=== PATIENT | male | born 1945 | race Caucasian/White ===

== ENCOUNTER 2021-08-10 14:22 | Inpatient (IN) | payer OTHER ==
--- OUTSIDE RECORDS SUMMARY | 2021-08-10 14:28 | XMS REPORT | Continuity of Care Document ---
:1945 Author Organization [facility] t Address [address] Romero [address] [place] [id number] Care Team Providers Name Role Phone Timothy GLEZ Primary Care Physician Unavailable AYAKA Attending Clinician Unavailable LOVELOCK Attending Clinician Unavailable Oliva Lim MD Attending Clinician BHARGAVI Attending Clinician Unavailable MD JOELLE BROOKS Attending Clinician Unavailable TODD Attending Clinician Unavailable Ayaka RAMOS Attending Clinician ADRYAN LIM Attending Clinician Unavailable BRET Attending Clinician Unavailable MD BHARGAVI RAntonino Attending Clinician Unavailable Lab, Fam Pob I Attending Clinician Unavailable Aneshama CYBER ENGINEER Attending Clinician LEONIE Attending Clinician Unavailable Doctor Unassigned, Name Attending Clinician Unavailable IRAIDA Attending Clinician Unavailable GUSTAVO Attending Clinician Unavailable ASKED Attending Clinician Unavailable José Miguel RAMOS, P Attending Clinician AYAKA Admitting Clinician Unavailable LOVELOCK Admitting Clinician Unavailable MD JOELLE BROOKS Admitting Clinician Unavailable BRET Admitting Clinician Unavailable BHARGAVI Admitting Clinician Unavailable MD Gene BURK Admitting Clinician Unavailable Payers Payer Name Policy Type Policy Number Effective Date Expiration Date S [place] MEDICARE A B [id number] 2011 2017 00:00:00 00:00:00 [employer] MEDICARE [id number] 2017 2020 ADV 00:00:00 00:00:00 AETNA INDEMNITY [id number] 2012 2016 NON CONTR 00:00:00 00:00:00 [facility] [id number] 2020 2020 00:00:00 00:00:00 UNITED MEDICARE [id number] 2020 HMO 00:00:00 MEDICARE ADVANTAGE [id number] 2020 PPO - [facility] 00:00:00 ZZZTRS-CARE [id number] 2020 MEDICARE ADVANTAGE 00:00:00 MEDICARE PART A [id number] \T\ B - MEDICARE INDEMNITY/TRADITIO [id number] NAL CHOICE - AETNA Problems Condition Condition Condition Status Onset Resolution Last Treating Co mments Source Name Details Category Date Date Treatment Clinician Date ANAYELI ANAYELI Disease Active [facility] (obstructi (obstructi 10-21 Co llege ve sleep ve sleep 00:00: of apnea) apnea) 00 Medicin e Chronic Chronic Disease Active [facility] atrial atrial 3-27 College fibrillati fibrillati 00:00: of on on 00 Medicin (HCCode) (HCCode) e 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 8-19 [facility] (HCCode) (HCCode) 00:00: of 00 Medicin e TN TN Disease Active [facility] (trigemina (trigemina 8-19 Co llege l l 00:00: of neuralgia) neuralgia) 00 Me dicin e Allergies, Adverse Reactions, Alerts Allergy Allergy Status Severity Reaction(s) Onset Inactive Treating Comm ents Source Name Type Date Date Clinician NO KNOWN Allergy Active [facility] NO KNOWN Drug Active [facility] ALLERGIE Class ity of [facility] Social History Social Habit Start Date Stop Date Quantity Comments Source Exposure to Not sure [facility] Jo e of SARS-CoV-2 Medicine (event) History [facility] ge of Alcohol Std Medicine Drinks History [facility] ge of Alcohol Binge Medicine Alcohol intake 2021-04-16 2021-04-16 .29 /d [facility] Col lege of 00:00:00 00:00:00 Medicine History [facility] 2019-08-23 2019-08-23 2 [facility] ge of Alcohol Frequency 00:00:00 00:00:00 Medicin e Alcohol Comment 2016-04-08 2016-04-08 social [facility] Co llege of 00:00:00 00:00:00 Medicine Tobacco use and 2015-03-15 2015-03-15 Never used [facility] Co llege of exposure 00:00:00 00:00:00 Medicine History of 1977-03-15 Cigarette Smoker [facility] ollege of tobacco use 00:00:00 Medicine Sex [birth year] Universit [facility] of 00:00:00 00:00:00 [facility] Smoking Status Start Date Stop Date Source Unknown if ever smoked [facility] Former smoker 2015-03-15 00:00:00 2015-03-15 00:00:00 [facility] ollege of Medicine Medications Ordered Filled Start Stop Current Ordering Indication Dosage Frequency Signature Comments Components Source Medication Medication Date Date Medication? Clinician (SIG) Name Name Dabigatran Yes Take by [facility] Etexilate 9-20 mouth two [facility]le [facility] Mesylate 10:10: times of (PRADAXA) 55 daily. Medicin 150 MG CAPS e Mesalamine Yes Take by [facility] (LIALDA) 9-20 mouth. College 1.2 G TBEC 10:10: of 55 Medicin e Cholecalcif Yes 5000mg Take 5,000 [facility] kerline 9-20 mg by [facility] (VITAMIN D 10:10: mouth of OR) 55 daily. Medicin e Ocrelizumab Yes Inject [facility] (OCREVUS) 9-20 into the [facility] e 300 MG/10ML 10:10: vein once. of injection 55 Medicin e duloxetine Yes 20mg Take 20 mg [facility] (CYMBALTA) 9-20 by mouth Colle [facility] 20 MG 10:10: daily. of capsule 55 Medicin e levothyroxi Yes 175ug Take 175 [facility] ne 9-20 mcg by [facility] (SYNTHROID) 10:10: mouth of 175 MCG 55 daily. Medicin tablet e oxcarbazepi Yes 300mg Take 300 [facility] ne 9-20 mg by [facility] (TRILEPTAL) 10:10: mouth two o f 300 MG 55 times Medicin tablet daily. e Dabigatran Yes Take by [facility] Etexilate 9-20 mouth two [facility] Mesylate 10:10: times of (PRADAXA) 55 daily. Medicin 150 MG CAPS e Mesalamine Yes Take by [facility] (LIALDA) 9-20 mouth. College 1.2 G TBEC 10:10: of 55 Medicin e Cholecalcif Yes 5000mg Take 5,000 [facility] kerline 9-20 mg by [facility] (VITAMIN D 10:10: mouth of OR) 55 daily. Medicin e Ocrelizumab Yes Inject [facility] (OCREVUS) 9-20 into the [facility] e 300 MG/10ML 10:10: vein once. of injection 55 Medicin e duloxetine Yes 20mg Take 20 mg [facility] (CYMBALTA) 9-20 by mouth Colle [facility] 20 MG 10:10: daily. of capsule 55 Medicin e levothyroxi Yes 175ug Take 175 [facility] ne 9-20 mcg by [facility] (SYNTHROID) 10:10: mouth of 175 MCG 55 daily. Medicin tablet e oxcarbazepi Yes 300mg Take 300 [facility] ne 9-20 mg by [facility] (TRILEPTAL) 10:10: mouth two o f 300 MG 55 times Medicin tablet daily. e modafinil Yes 200mg Take 1 [facility] (PROVIGIL) 9-20 Tablet by [facility] 200 MG 00:00: mouth two of tablet 00 times Medicin daily. e modafinil Yes 200mg Take 1 [facility] (PROVIGIL) 9-20 Tablet by [facility] 200 MG 00:00: mouth two of tablet 00 times Medicin daily. e Amantadine Yes TAKE ONE [facility] HCl 100 MG 7-27 TABLET BY [facility] TABS 00:00: MOUTH of 00 TWICE A Medicin DAY e Amantadine 0 Yes TAKE ONE [facility] HCl 100 MG 7-27 TABLET BY [facility] TABS 00:00: MOUTH of 00 TWICE A Medicin DAY e modafinil 0 2020- No TAKE ONE [facility] (PROVIGIL) 6-24 09-20 TABLET BY [facility] 200 MG 00:00: 00:00 MOUTH of tablet 00 :00 TWICE A Medicin DAY e modafinil 2020- No TAKE ONE [facility] (PROVIGIL) 6-24 -20 TABLET BY [facility] 200 MG 00:00: 00:00 MOUTH of tablet 00 :00 TWICE A Medicin DAY e Dabigatran Yes Take by [facility] Etexilate 5-24 mouth two [facility] Mesylate 09:11: times of (PRADAXA) 20 daily. Medicin 150 MG CAPS e Mesalamine Yes Take by [facility] (LIALDA) 5-24 mouth. College 1.2 G TBEC 09:11: of 20 Medicin e Cholecalcif Yes 5000mg Take 5,000 [facility] kerline 5-24 mg by [facility] (VITAMIN D 09:11: mouth of OR) 20 daily. Medicin e Ocrelizumab Yes Inject [facility] (OCREVUS) 5-24 into the [facility] 300 MG/10ML 09:11: vein once. of injection 20 Medicin e duloxetine Yes 20mg Take 20 mg [facility] (CYMBALTA) 5-24 by mouth Colle [facility] 20 MG 09:11: daily. of capsule 20 Medicin e levothyroxi Yes 175ug Take 175 [facility] ne 5-24 mcg by [facility] (SYNTHROID) 09:11: mouth of 175 MCG 20 daily. Medicin tablet e oxcarbazepi Yes 300mg Take 300 [facility] ne 5-24 mg by [facility] (TRILEPTAL) 09:11: mouth two o f 300 MG 20 times Medicin tablet daily. e digoxin Yes 125ug Take 125 [facility] (LANOXIN) 4-13 mcg by [facility] 125 MCG 00:00: mouth at of tablet 00 bedtime. Medicin e digoxin Yes 125ug Take 125 [facility] (LANOXIN) 4-13 mcg by [facility] 125 MCG 00:00: mouth at of tablet 00 bedtime. Medicin e digoxin Yes 125ug Take 125 [facility] (LANOXIN) 4-13 mcg by [facility] 125 MCG 00:00: mouth at of tablet 00 bedtime. Medicin e digoxin Yes 125ug Take 125 [facility] (LANOXIN) 4-13 mcg by [facility] 125 MCG 00:00: mouth at of tablet 00 bedtime. Medicin e Dabigatran Yes Take by [facility] Etexilate 3-01 mouth two [facility] Mesylate 15:43: times of (PRADAXA) 03 daily. Medicin 150 MG CAPS e Mesalamine 0 Yes Take by [facility] (LIALDA) 3-01 mouth. [facility] 1.2 G TBEC 15:43: of 03 Medicin e Cholecalcif 2020-0 Yes 5000mg Take 5,000 [facility] kerline 3-01 mg by [facility] (VITAMIN D 15:43: mouth of OR) 03 daily. Medicin e Ocrelizumab Yes Inject [facility] (OCREVUS) 3-01 into the [facility] 300 MG/10ML 15:43: vein once. of injection 03 Medicin e duloxetine Yes 20mg Take 20 mg [facility] (CYMBALTA) 3-01 by mouth [facility]le [facility] 20 MG 15:43: daily. of capsule 03 Medicin e levothyroxi Yes 175ug Take 175 [facility] ne 3-01 mcg by [facility] (SYNTHROID) 15:43: mouth of 175 MCG 03 daily. Medicin tablet e oxcarbazepi Yes 300mg Take 300 [facility] ne 3-01 mg by [facility] (TRILEPTAL) 15:43: mouth two o f 300 MG 03 times Medicin tablet daily. e Dabigatran 2020-0 Yes Take by [facility] Etexilate 3- mouth two [facility] Mesylate 15:43: times of (PRADAXA) 03 daily. Medicin 150 MG CAPS e Mesalamine 2020-0 Yes Take by [facility] (LIALDA) 3-01 mouth. [facility] 1.2 G TBEC 15:43: of 03 Medicin e Cholecalcif 2020-0 Yes 5000mg Take 5,000 [facility] kerline 3-01 mg by [facility] (VITAMIN D 15:43: mouth of OR) 03 daily. Medicin e Ocrelizumab Yes Inject [facility] (OCREVUS) 3-01 into the [facility] 300 MG/10ML 15:43: vein once. of injection 03 Medicin e duloxetine Yes 20mg Take 20 mg [facility] (CYMBALTA) 3- by mouth [facility] 20 MG 15:43: daily. of capsule 03 Medicin e levothyroxi Yes 175ug Take 175 [facility] ne 3-01 mcg by [facility] (SYNTHROID) 15:43: mouth of 175 MCG 03 daily. Medicin tablet e oxcarbazepi Yes 300mg Take 300 [facility] ne 3-01 mg by [facility] (TRILEPTAL) 15:43: mouth two o f 300 MG 03 times Medicin tablet daily. e Dabigatran Yes Take by [facility] Etexilate - mouth two [facility] Mesylate 15:43: times of (PRADAXA) 03 daily. Medicin 150 MG CAPS e Mesalamine Yes Take by [facility] (LIALDA) 3- mouth. [facility] 1.2 G TBEC 15:43: of 03 Medicin e Cholecalcif Yes 5000mg Take 5,000 [facility] kerline 3- mg by [facility] (VITAMIN D 15:43: mouth of OR) 03 daily. Medicin e Ocrelizumab Yes [facility]ject [facility] (OCREVUS) 09-25 into the [facility] 300 MG/10ML 15:43: vein once. of injection Medicin e duloxetine Yes 20mg Take 20 mg [facility] (CYMBALTA) - by mouth [facility] 20 MG 15:43: daily. of capsule 03 Medicin e levothyroxi Yes 175ug Take 175 [facility] ne 3-01 mcg by [facility] (SYNTHROID) 15:43: mouth of 175 MCG 03 daily. Medicin tablet e oxcarbazepi Yes 300mg Take 300 [facility] ne 3-01 mg by [facility] (TRILEPTAL) 15:43: mouth two o f 300 MG 03 times Medicin tablet daily. e olmesartan 2020- No 5mg Take 5 mg [facility] (BENICAR) 5 3- 03-01 by mouth [facility] MG tablet 15:41: 00:00 daily. of 20 :00 Medicin e amlodipine 2020-2020- No 2.5mg Take 2.5 [facility] (NORVASC) 3-01 03-01 mg by College 2.5 MG 15:41: 00:00 mouth of tablet 08 :00 daily. Medicin e rosuvastati 2020-0 Yes 10mg Take 10 mg [facility] n (CRESTOR) 2-26 by mouth [facility] 10 MG 00:00: daily. of tablet 00 Medicin e rosuvastati 2020-0 Yes 10mg Take 10 mg [facility] (CRESTOR) 2-26 by mouth [facility] 10 MG 00:00: daily. of tablet 00 Medicin e rosuvastati 2020-0 Yes 10mg Take 10 mg [facility] n (CRESTOR) 2-26 by mouth [facility] 10 MG 00:00: daily. of tablet 00 Medicin e rosuvastati 2020-0 Yes 10mg Take 10 mg [facility] (CRESTOR) 2-26 by mouth [facility] 10 MG 00:00: daily. of tablet 00 Medicin e rosuvastati 2020-0 Yes 10mg Take 10 mg [facility] (CRESTOR) 2-26 by mouth [facility] 10 MG 00:00: daily. of tablet 00 Medicin e rosuvastati 2020-0 Yes 10mg Take 10 mg [facility] n (CRESTOR) 2-26 by mouth [facility] 10 MG 00:00: daily. of tablet 00 Medicin e Alfuzosin 2020-0 Yes [id number] 10mg Take 10 mg [facility] HCl 10 MG 2-16 9100 by mouth Colleg e TB24 00:00: at of 00 bedtime. Medicin e Alfuzosin 2020-0 Yes [id number] 10mg Take 10 mg [facility] HCl 10 MG 2-16 9100 by mouth Colleg e TB24 00:00: at of 00 bedtime. Medicin e Alfuzosin 2020-0 Yes [id number] 10mg Take 10 mg [facility] HCl 10 MG 2-16 9100 by mouth Colleg e TB24 00:00: at of 00 bedtime. Medicin e Alfuzosin 2020-0 Yes [id number] 10mg Take 10 mg [facility] HCl 10 MG 2-16 9100 by mouth Colleg e TB24 00:00: at of 00 bedtime. Medicin e Alfuzosin 2020-0 Yes [id number] 10mg Take 10 mg [facility] HCl 10 MG 2-16 9100 by mouth Colleg e TB24 00:00: at of 00 bedtime. Medicin e Alfuzosin 2020-0 Yes [id number] 10mg Take 10 mg [facility] HCl 10 MG 2-16 9100 by mouth Colleg e TB24 00:00: at of 00 bedtime. Medicin e latanoprost 2020-0 Yes [facility] (XALATAN) 2-08 [facility] 0.005 % 00:00: of ophthalmic 00 Medicin solution e latanoprost 2020-0 Yes [facility] (XALATAN) 2-08 [facility] 0.005 % 00:00: of ophthalmic 00 Medicin solution e latanoprost 2020-0 Yes [facility] (XALATAN) 2-08 [facility] 0.005 % 00:00: of ophthalmic 00 Medicin solution e latanoprost 2020-0 Yes [facility] (XALATAN) 2-08 [facility] 0.005 % 00:00: of ophthalmic 00 Medicin solution e latanoprost 2020-0 Yes [facility] (XALATAN) 2-08 [facility] 0.005 % 00:00: of ophthalmic 00 Medicin solution e gabapentin 2020-0 Yes TAKE THREE [facility] (NEURONTIN) 2-04 CAPSULES [facility] 300 MG 00:00: BY MOUTH of capsule 00 THREE Medicin TIMES A e DAY gabapentin 2020-0 Yes TAKE THREE [facility] (NEURONTIN) 2-04 CAPSULES [facility] 300 MG 00:00: BY MOUTH of capsule 00 THREE Medicin TIMES A e DAY gabapentin 2020-0 Yes TAKE THREE [facility] (NEURONTIN) 2-04 CAPSULES [facility] 300 MG 00:00: BY MOUTH of capsule 00 THREE Medicin TIMES A e DAY gabapentin 1-0 Yes TAKE THREE [facility] (NEURONTIN) 2-04 CAPSULES [facility] 300 MG 00:00: BY MOUTH of capsule 00 THREE Medicin TIMES A e DAY gabapentin 2021-0 Yes TAKE THREE [facility] (NEURONTIN) 2-04 CAPSULES [facility] 300 MG 00:00: BY MOUTH of capsule 00 THREE Medicin TIMES A e DAY gabapentin 1-0 Yes TAKE THREE [facility] (NEURONTIN) 2-04 CAPSULES [facility] 300 MG 00:00: BY MOUTH of capsule 00 THREE Medicin TIMES A e DAY lorazepam 2021-0 Yes .5mg Take 1 [facility] (ATIVAN) 2-03 Tablet by [facility] e 0.5 MG 00:00: mouth of tablet 00 every 6 Medicin hours as e needed for Anxiety. lorazepam Yes .5mg Take 1 [facility] (ATIVAN) 2-03 Tablet by Colleg e 0.5 MG 00:00: mouth of tablet 00 every 6 Medicin hours as e needed for Anxiety. lorazepam 0 202- No .5mg Take 1 [facility] (ATIVAN) 2-03 04-15 Tablet by [facility] 0.5 MG 00:00: 00:00 mouth of tablet 00 :00 every 6 Medicin hours as e needed for Anxiety. clopidogrel 2019-07 Yes 75mg Take 75 mg [facility] (PLAVIX) 75 2-18 by mouth [facility] MG Tablet 00:00: daily. of 00 Medicin e clopidogrel 2019-07 Yes 75mg Take 75 mg [facility] (PLAVIX) 75 2-18 by mouth [facility] MG Tablet 00:00: daily. of Medicin e clopidogrel 2019-07 Yes 75mg Take 75 mg [facility] (PLAVIX) 75 2-18 by mouth [facility] MG Tablet 00:00: daily. of Medicin e clopidogrel 2019-07- No 75mg Take 75 mg [facility] (PLAVIX) 75 2-18 05-24 by mouth [facility] MG Tablet 00:00: 00:00 daily. of 00 :00 Medicin e modafinil 2019-07 Yes TAKE ONE [facility] (PROVIGIL) 2-07 TABLET BY [facility] 200 MG 00:00: MOUTH of tablet 00 TWICE A Medicin DAY e modafinil 2019-07 Yes TAKE ONE [facility] (PROVIGIL) 2-07 TABLET BY [facility] 200 MG 00:00: MOUTH of tablet 00 TWICE A Medicin DAY e modafinil 2019-07 Yes TAKE ONE [facility] (PROVIGIL) 2-07 TABLET BY [facility] 200 MG 00:00: MOUTH of tablet 00 TWICE A Medicin DAY e modafinil 2019-07 Yes TAKE ONE [facility] (PROVIGIL) 2-07 TABLET BY [facility] 200 MG 00:00: MOUTH of tablet 00 TWICE A Medicin DAY e Amantadine 2019-07 Yes TAKE ONE [facility] HCl 100 MG 1-27 TABLET BY [facility] TABS 00:00: MOUTH of 00 TWICE A Medicin DAY e Amantadine 2019- Yes TAKE ONE [facility] HCl 100 MG 1-27 TABLET BY [facility] TABS 00:00: MOUTH of 00 TWICE A Medicin DAY e Amantadine 2019- Yes TAKE ONE [facility] HCl 100 MG 1-27 TABLET BY [facility] TABS 00:00: MOUTH of 00 TWICE A Medicin DAY e Amantadine 2019-07 Yes TAKE ONE [facility] HCl 100 MG 1-27 TABLET BY [facility] TABS 00:00: MOUTH of 00 TWICE A Medicin DAY e amiodarone 2020-0 Yes [facility] (PACERONE) 8 [facility] 200 MG 00:00: of tablet 00 Medicin e amiodarone 2020-0 Yes [facility] (PACERONE) 03-03 [facility] 200 MG 00:00: of tablet 00 Medicin e amiodarone 2019-0 2020- No [facility] (PACERONE) 03-03 04-15 [facility] 200 MG 00:00: 00:00 of tablet 00 :00 Medicin e Dabigatran 2020-0 Yes Take by [facility] Etexilate 3-17 mouth two [facility] Mesylate 16:18: times of (PRADAXA) 48 daily. Medicin 150 MG CAPS e Mesalamine 2019-0 Yes Take by [facility] (LIALDA) 3-17 mouth. [facility] 1.2 G TBEC 16:18: of 48 Medicin e Cholecalcif 2020-0 Yes 5000mg Take 5,000 [facility] kerline 3-17 mg by [facility] (VITAMIN D 16:18: mouth of OR) 48 daily. Medicin e amiodarone 2020-0 Yes Inject [facility] (CORDARONE) 3-17 into the [facility] 50 mg/mL 16:18: vein. of injection 48 Medicin e Ocrelizumab 2020-0 Yes Inject [facility] (OCREVUS) 3-17 into the [facility] 300 MG/10ML 16:18: vein once. of injection 48 Medicin e olmesartan 2020-0 Yes 5mg Take 5 mg [facility] (BENICAR) 5 3-17 by mouth [facility] MG tablet 16:18: daily. of 48 Medicin e duloxetine 2020-0 Yes 20mg Take 20 mg [facility] (CYMBALTA) 3-17 by mouth [facility] 20 MG 16:18: daily. of capsule 48 Medicin e amlodipine 2020-0 Yes 2.5mg Take 2.5 [facility] (NORVASC) 3-17 mg by [facility] 2.5 MG 16:18: mouth of tablet 48 daily. Medicin e levothyroxi 2020-0 Yes 175ug Take 175 [facility] ne 3-17 mcg by [facility] (SYNTHROID) 16:18: mouth of 175 MCG 48 daily. Medicin tablet e oxcarbazepi 2020-0 Yes 300mg Take 300 [facility] ne 3-17 mg by [facility] (TRILEPTAL) 16:18: mouth two o f 300 MG 48 times Medicin tablet daily. e oxcarbazepi 2020-0 Yes 150mg Take 150 [facility] ne 3-17 mg by [facility] (TRILEPTAL) 16:18: mouth two o f 150 MG 48 times Medicin tablet daily. e Tamsulosin 2020-0 Yes [id number] .4mg Take 0.4 [facility] HCl 0.4 MG 3-17 9100 mg by [facility] CAPS 00:00: mouth at of 00 bedtime. Medicin e ciprofloxac 2020-0 Yes [id number] 500mg Take 1 Tab [facility] in (CIPRO) 3-17 by mouth [facility] 500 MG 00:00: two times of tablet 00 daily. Medicin e Amantadine 2020-0 Yes TAKE ONE [facility] HCl 100 MG 3-16 TABLET BY [facility] TABS 00:00: MOUTH of 00 TWICE A Medicin DAY e Dabigatran 2020-0 Yes Take by [facility] [place] [facility] Etexilate 2-25 mouth two [facility] Mesylate 19:48: times of (PRADAXA) 18 daily. Medicin 150 MG CAPS e Mesalamine 2020-0 Yes Take by [facility] [place] [facility] (LIALDA) 2-25 mouth. [facility] 1.2 G TBEC 19:48: of 18 Medicin e Cholecalcif 2020-0 Yes 5000mg Take 5,000 [facility] kerline 2-25 mg by [facility] (VITAMIN D 19:48: mouth of OR) 18 daily. Medicin e amiodarone 2020-0 Yes Inject [facility] (CORDARONE) 2-25 into the [facility] 50 mg/mL 19:48: vein. of injection 18 Medicin e Ocrelizumab 2020-0 Yes Inject [facility] (OCREVUS) 2-25 into the [facility] 300 MG/10ML 19:48: vein once. of injection 18 Medicin e olmesartan 2020-0 Yes 5mg Take 5 mg [facility] (BENICAR) 5 2-25 by mouth [facility] MG tablet 19:48: daily. of 18 Medicin e duloxetine 2020-0 Yes 20mg Take 20 mg [facility] (CYMBALTA) 2-25 by mouth [facility] 20 MG 19:48: daily. of capsule 18 Medicin e amlodipine 2020-0 Yes 2.5mg Take 2.5 [facility] (NORVASC) 2-25 mg by [facility] 2.5 MG 19:48: mouth of tablet 18 daily. Medicin e levothyroxi 2020-0 Yes 175ug Take 175 [facility] ne 2-25 mcg by [facility] (SYNTHROID) 19:48: mouth of 175 MCG 18 daily. Medicin tablet e oxcarbazepi 2020-0 Yes 300mg Take 300 [facility] ne 2-25 mg by [facility] (TRILEPTAL) 19:48: mouth two o f 300 MG 18 times Medicin tablet daily. e oxcarbazepi 2020-0 Yes 150mg Take 150 [facility] ne 2-25 mg by [facility] (TRILEPTAL) 19:48: mouth two o f 150 MG 18 times Medicin tablet daily. e furosemide 2019-0 2020- No 40mg Take 40 mg [facility] (LASIX) 40 2-25 02-25 by mouth [facility] MG tablet 19:48: 00:00 daily. of 18 :00 Medicin e levothyroxi 2020-0 2020- No 150ug Take 150 [facility] ne 2-25 02-25 mcg by [facility] (SYNTHROID) 19:48: 00:00 mouth of 150 MCG 18 :00 daily. Medicin tablet e LATANOPROST 2019-0 2020- No Apply to [facility] OP 2-25 02-25 eye. College 19:48: 00:00 of 18 :00 Medicin e potassium 2020-0 2020- No 10meq Take 10 [facility] chloride 2-25 02-25 mEq by [facility] (KDUR) 10 19:48: 00:00 mouth of MEQ tablet 18 :00 daily. Medicin e modafinil 2020-0 Yes 200mg Take 1 Tab [facility] (PROVIGIL) 2-25 by mouth [facility] 200 MG 00:00: two times of tablet 00 daily. Medicin e modafinil 2020-0 Yes 200mg Take 1 Tab [facility] (PROVIGIL) 2-25 by mouth [facility] 200 MG 00:00: two times of tablet 00 daily. Medicin e Cholecalcif 2020-0 Yes 5000mg Take 5,000 [facility] kerline 1-27 mg by [facility] (VITAMIN D 18:14: mouth of OR) 28 daily. Medicin e amiodarone 2020-0 Yes Inject [facility] (CORDARONE) 1- into the [facility] 50 mg/mL 18:14: vein. of injection 28 Medicin e Ocrelizumab 2020-0 Yes Inject [facility] (OCREVUS) - into the [facility] 300 MG/10ML 18:14: vein once. of injection 28 Medicin e furosemide 2020-0 Yes 40mg Take 40 mg [facility] (LASIX) 40 - by mouth [facility]le [facility] MG tablet 18:14: daily. of 28 Medicin e levothyroxi 2020-0 Yes 150ug Take 150 [facility] ne 1-27 mcg by [facility] (SYNTHROID) 18:14: mouth of 150 MCG 28 daily. Medicin tablet e Dabigatran 2019-0 Yes Take by [facility] Etexilate 08-23 mouth two [facility] Mesylate 18:14: times of (PRADAXA) 28 daily. Medicin 150 MG CAPS e LATANOPROST 2020-0 Yes Apply to [facility] OP 08-23 eye. College 18:14: of Medicin e potassium 2020-0 Yes 10meq Take 10 [facility] chloride -27 mEq by [facility] (KDUR) 10 18:14: mouth of MEQ tablet 28 daily. Medicin e Mesalamine 2019-0 Yes Take by [facility] (LIALDA) 08-23 mouth. College 1.2 G TBEC 18:14: of Medicin e methylPREDN 2018-07 Yes Take by [facility] ISolone -15 mouth as College (MEDROL 00:00: directed. of DOSEPACK) 4 00 Medicin MG tablet e methylPREDN 2018-07 2020- No Take by [facility] ISolone -15 09-21 mouth as College (MEDROL 00:00: 00:00 directed. alexa MENDEZ) 4 00 :00 Medicin MG tablet e modafinil 2018-07 Yes TAKE ONE [facility] (PROVIGIL) 1-08 TABLET BY [facility] 200 MG 00:00: MOUTH of tablet 00 TWICE A Medicin DAY e modafinil 2018-07 2020- No TAKE ONE [facility] (PROVIGIL) 1-08 02-25 TABLET BY Col [facility] 200 MG 00:00: 00:00 MOUTH of tablet 00 :00 TWICE A Medicin DAY e gabapentin Yes TAKE THREE [facility] (NEURONTIN) 6-17 CAPSULES [facility] 300 MG 00:00: BY MOUTH of capsule 00 THREE Medicin TIMES A e DAY gabapentin Yes TAKE THREE [facility] (NEURONTIN) 6-17 CAPSULES [facility] 300 MG 00:00: BY MOUTH of capsule 00 THREE Medicin TIMES A e DAY gabapentin Yes TAKE THREE [facility] (NEURONTIN) 6-17 CAPSULES [facility] 300 MG 00:00: BY MOUTH of capsule 00 THREE Medicin TIMES A e DAY gabapentin Yes TAKE THREE [facility] (NEURONTIN) 6-17 CAPSULES [facility] 300 MG 00:00: BY MOUTH of capsule 00 THREE Medicin TIMES A e DAY modafinil Yes TAKE ONE [facility] (PROVIGIL) 3-27 TABLET BY [facility] 200 MG 00:00: MOUTH of tablet 00 TWICE A Medicin DAY e Amantadine Yes TAKE ONE [facility] HCl 100 MG 3-25 TABLET BY [facility] TABS 00:00: MOUTH of 00 TWICE A Medicin DAY e Amantadine Yes TAKE ONE [facility] HCl 100 MG 3-25 TABLET BY [facility] TABS 00:00: MOUTH of 00 TWICE A Medicin DAY e Amantadine Yes TAKE ONE [facility] HCl 100 MG 3-25 TABLET BY [facility] TABS 00:00: MOUTH of 00 TWICE A Medicin DAY e furosemide Yes 40mg Take 40 mg [facility] (LASIX) 40 1-14 by mouth [facility] MG tablet 20:27: daily. of 10 Medicin e levothyroxi Yes 150ug Take 150 [facility] [place] ne 1-14 mcg by [place] (SYNTHROID) 20:27: mouth of 150 MCG 10 daily. Medicin tablet e Dabigatran Yes Take by [place] [facility] Etexilate 1-14 mouth two [facility] [place] Mesylate 20:27: times of (PRADAXA) 10 daily. Medicin 150 MG CAPS e LATANOPROST Yes Apply to Aravind spangler OP 1-14 eye. [place] 20:27: of 10 Medicin e potassium Yes 10meq Take 10 [facility] chloride 1-14 mEq by [place] (KDUR) 10 20:27: mouth of MEQ tablet 10 daily. Medicin e Mesalamine Yes Take by [place] [facility] (LIALDA) 1-14 mouth. College 1.2 G TBEC 20:27: of 10 Medicin e Cholecalcif Yes 5000mg Take 5,000 [facility] kerline 1-14 mg by [place] (VITAMIN D 20:27: mouth of OR) 10 daily. Medicin e amiodarone Yes Inject [facility] (CORDARONE) 1-14 into the [facility]anne e[facility] 50 mg/mL 20:27: vein. of injection 10 Medicin e Ocrelizumab Yes Inject [facility] (OCREVUS) 1-14 into the Colleg e 300 MG/10ML 20:27: vein once. of injection 10 Medicin e oxcarbazepi Yes [facility] 04-02 [place] (TRILEPTAL) 00:00: of 600 MG 00 Medicin tablet e oxcarbazepi Yes [facility] 04-02 [place] (TRILEPTAL) 00:00: of 600 MG 00 Medicin tablet e oxcarbazepi 2020- No [facility] r sd 04-02 [place] (TRILEPTAL) 00:00: 00:00 of 600 MG 00 :00 Medicin tablet e esomeprazol Yes [facility] e (NEXIUM) 03-13 [place] 40 MG 00:00: of capsule 00 Medicin e esomeprazol Yes [facility] e (NEXIUM) 03-13 [place] 40 MG 00:00: of capsule 00 Medicin e esomeprazol Yes [facility] e (NEXIUM) 03-13 [place] 40 MG 00:00: of capsule 00 Medicin e esomeprazol Yes [facility] e (NEXIUM) 8-17 College 40 MG 00:00: of capsule 00 Medicin e esomeprazol 2015- Yes [facility] (NEXIUM) 8-17 [facility] 40 MG 00:00: of capsule 00 Medicin e esomeprazol Yes [facility] (NEXIUM) 8-17 [facility] 40 MG 00:00: of capsule 00 Medicin e esomeprazol Yes [facility] (NEXIUM) 8-17 College 40 MG 00:00: of capsule Medicin e esomeprazol Yes [facility] e (NEXIUM) 8-17 College 40 MG 00:00: of capsule 00 Medicin e esomeprazol 2015- Yes [facility] (NEXIUM) 8-17 College 40 MG 00:00: of capsule Medicin e esomeprazol Yes [facility] (NEXIUM) 8-17 College 40 MG 00:00: of capsule 00 Medicin e Vital Signs Vital Name Observation Time Observation Value Comments Source HEIGHT 2020-12-20 06:00:00 193 cm WEIGHT 2020-12-20 06:00:00 75.7 kg HEIGHT 2020-12-19 13:14:00 193 cm WEIGHT 2020-12-19 13:14:00 74.844 kg Systolic blood 2021-04-16 15:06:00 96 mm[Hg] [facility] pressure Medicine Diastolic blood 2021-04-16 15:06:00 63 mm[Hg] [facility] pressure Medicine Heart rate 2021-04-16 15:06:00 69 /min [facility] Body height 2021-04-16 15:06:00 193 cm [facility] Body weight 2021-04-16 15:06:00 74.39 kg [facility] BMI 2021-04-16 15:06:00 19.96 kg/m2 [facility] Systolic blood 2020-12-18 14:09:00 169 mm[Hg] [facility] pressure Medicine Diastolic blood 2020-12-18 14:09:00 108 mm[Hg] [facility] pressure Medicine Heart rate 2020-12-18 14:09:00 67 /min [facility] [facility] [employer] Body temperature 2020-12-18 14:09:00 36.28 Vaishnavi [facility] Respiratory rate 2020-12-18 14:09:00 16 /min [facility] Body height 2020-12-18 14:09:00 193 cm [facility] ollege of [facility] Body weight 2020-12-18 14:09:00 75.841 kg [facility] ollege of [facility] BMI 2020-12-18 14:09:00 20.35 [facility] Oxygen saturation in 2020-12-18 14:09:00 100 /min [facility] Arterial blood by [facility] Pulse oximetry Systolic blood 2020-11-09 15:14:00 99 mm[Hg] [facility] pressure Medicine Diastolic blood 2020-11-09 15:14:00 71 mm[Hg] [facility] pressure Medicine Heart rate 2020-11-09 15:14:00 128 /min [facility] ollege of [facility] Body height 2020-11-09 15:14:00 193 cm [facility] Body weight 2020-11-09 15:14:00 76.204 kg [facility] ollege of [facility] BMI 2020-11-09 15:14:00 20.45 [facility]m2 [facility] Systolic blood 2020-09-27 16:10:00 121 mm[Hg] [facility] pressure Medicine Diastolic blood 2020-09-27 16:10:00 80 mm[Hg] [facility] pressure Medicine Heart rate 2020-09-27 16:10:00 70 /min [facility] Body height 2020-09-27 16:10:00 193 cm [facility] ollege of [facility] Body weight 2020-09-27 16:10:00 83.915 kg [facility] ollege of [facility] BMI 2020-09-27 16:10:00 22.52 kg/m2 [facility] of Medicine Systolic blood 2020-09-25 15:40:00 121 mm[Hg] [facility] pressure Medicine Diastolic blood 2020-09-25 15:40:00 85 mm[Hg] [facility] pressure Medicine Heart rate 2020-09-25 15:40:00 64 /min [facility] Body temperature 2020-09-25 15:40:00 36.22 Vaishnavi [facility] Respiratory rate 2020-09-25 15:40:00 16 /min [facility] Body height 2020-09-25 15:40:00 193 cm [facility] ol[facility] of Medicine Body weight 2020-09-25 15:40:00 83.008 kg [facility] ol[facility] of Medicine BMI 2020-09-25 15:40:00 22.28 kg/m2 [facility] Oxygen saturation in 2020-09-25 15:40:00 100 /min [facility] blood by [facility] Pulse oximetry HEIGHT 2020-09-08 10:50:00 193 cm WEIGHT 2020-09-08 10:50:00 83.144 kg HEIGHT 2020-09-08 10:50:00 193 cm WEIGHT 2020-09-08 10:50:00 83.144 kg Systolic blood 2019-10-12 16:12:00 177 mm[Hg] [facility] of pressure Medicine Diastolic blood 2019-10-12 16:12:00 107 mm[Hg] [facility] of pressure Medicine Heart rate 2019-10-12 16:12:00 58 /min [facility] of Medicine Body height 2019-10-12 16:12:00 193 cm [facility] of Medicine Body weight 2019-10-12 16:12:00 83.915 kg [facility] ol[facility] of Medicine BMI 2019-10-12 16:12:00 22.52 kg/m2 [facility] ol[facility] of Medicine Systolic blood 2019-09-21 19:28:00 139 mm[Hg] [facility] of pressure Medicine Diastolic blood 2019-09-21 19:28:00 97 mm[Hg] [facility] of pressure Medicine Heart rate 2019-09-21 19:28:00 56 /min [facility] ollege of Medicine Body height 2019-09-21 19:28:00 193 cm [facility] Body weight 2019-09-21 19:28:00 82.555 kg [facility] BMI 2019-09-21 19:28:00 22.15 kg/m2 [facility] 2019-08-23 18:15:00 125 mm[Hg] [facility] of pressure Medicine Diastolic blood 2019-08-23 18:15:00 86 mm[Hg] [facility] of pressure Medicine Heart rate 2019-08-23 18:15:00 65 /min [facility] Body temperature 2019-08-23 18:15:00 36.5 Vaishnavi [facility] Respiratory rate 2019-08-23 18:15:00 14 /min [facility] Body height 2019-08-23 18:15:00 193 cm [facility] Body weight 2019-08-23 18:15:00 83.915 kg [facility] BMI 2019-08-23 18:15:00 22.52 kg/m2 [facility] Oxygen saturation in 2019-08-23 18:15:00 99 /min [facility] Arterial blood by [facility] Pulse oximetry Systolic blood 2019-03-04 18:59:00 155 mm[Hg] [facility] of pressure Medicine Diastolic blood 2019-03-04 18:59:00 96 mm[Hg] [facility] pressure Medicine Heart rate 2019-03-04 18:59:00 63 /min [facility] Body height 2019-03-04 18:59:00 193 cm [facility] Body weight 2019-03-04 18:59:00 87.998 kg [facility] BMI 2019-03-04 18:59:00 23.61 kg/m2 [facility] Procedures This patient has no known procedures. Plan of Care Planned Activity Planned Date Details Comments Source Future Scheduled 2021-04-16 TETANUS SHOT (ADULT) [facility] Test 10:09:56 [code = TETANUS SHOT of Medi cine (ADULT)] Future Scheduled 2021-04-16 Hepatitis C screening [facility] Test 10:09:56 (procedure) [code = of Medic ine 034359935] Future Scheduled 2021-04-16 ZOSTER VACCINE (1 of [facility] Test 10:09:56 2) [code = ZOSTER of Medicin e VACCINE (1 of 2)] Future Scheduled 2021-04-16 Abdominal aortic [facility] Test 10:09:56 aneurysm screening of Medici ne (procedure) [code = 702111987] Future Scheduled 2021-04-16 PNEUMOVAX >=65 [facility] Test 10:09:56 (PPSV23) [code = of Medicine PNEUMOVAX >=65 (PPSV23)] Future Scheduled 2021-04-16 Screening for [facility]ge Test 10:09:56 malignant neoplasm of of Med icine colon (procedure) [code = 535578874] Future Scheduled 2021-04-16 FLU VACCINE > 6 [facility]lege Test 10:09:56 MONTHS [code = FLU of Medici ne VACCINE > 6 MONTHS] Future Scheduled 2021-04-16 FALL SCREEN [code = [facility] Test 10:09:56 FALL SCREEN] of Medicine Future Scheduled 2021-04-16 TETANUS SHOT (ADULT) [place] [facility] [employer] Test 10:09:56 [code = TETANUS SHOT of Medi cine (ADULT)] Future Scheduled 2021-04-16 Hepatitis C screening [facility] Test 10:09:56 (procedure) [code = of Medic ine 939920124] Future Scheduled 2021-04-16 ZOSTER VACCINE (1 of [facility] Test 10:09:56 2) [code = ZOSTER of Medicin e VACCINE (1 of 2)] Future Scheduled 2021-04-16 Abdominal aortic [facility] Test 10:09:56 aneurysm screening of Medici ne (procedure) [code = 764734115] Future Scheduled 2021-04-16 PNEUMOVAX >=65 [facility] llege Test 10:09:56 (PPSV23) [code = of Medicine PNEUMOVAX >=65 (PPSV23)] Future Scheduled 2021-04-16 Screening for [facility]ge Test 10:09:56 malignant neoplasm of of Med icine colon (procedure) [code = 281347347] Future Scheduled 2021-04-16 FLU VACCINE > 6 [facility] Test 10:09:56 MONTHS [code = FLU of Medici ne VACCINE > 6 MONTHS] Future Scheduled 2021-04-16 FALL SCREEN [code = [facility] [employer] Test 10:09:56 FALL SCREEN] of Medicine Future Scheduled 2020-12-21 TETANUS SHOT (ADULT) [place] [facility] [employer] Test 13:03:52 [code = TETANUS SHOT of Medi cine (ADULT)] Future Scheduled 2020-12-21 Hepatitis C screening [employer] Test 13:03:52 (procedure) [code = of Medic ine 299071597] Future Scheduled 2020-12-21 ZOSTER VACCINE (1 of [place] [facility] [employer] Test 13:03:52 2) [code = ZOSTER of Medicin e VACCINE (1 of 2)] Future Scheduled 2020-12-21 Abdominal aortic [facility] Test 13:03:52 aneurysm screening of Medici ne (procedure) [code = 088682631] Future Scheduled 2020-12-21 PNEUMOVAX >=65 [facility] Test 13:03:52 (PPSV23) [code = of Medicine PNEUMOVAX >=65 (PPSV23)] Future Scheduled 2020-12-21 Screening for [facility] Test 13:03:52 malignant neoplasm of of Med icine colon (procedure) [code = 841684564] Future Scheduled 2020-12-21 FLU VACCINE > 6 [facility] Test 13:03:52 MONTHS [code = FLU of Medici ne VACCINE > 6 MONTHS] Future Scheduled 2020-12-21 FALL SCREEN [code = [facility] [employer] Test 13:03:52 FALL SCREEN] of Medicine Future Scheduled TETANUS SHOT (ADULT) [place] [facility] [employer] Test [code = TETANUS SHOT of Medi cine (ADULT)] Future Scheduled HEPATITIS C SCREENING [employer] Test [code = HEPATITIS C of Medic ine SCREENING] Future Scheduled MEDICARE AWV [facility] Test (Initial) [code = of Medicin e MEDICARE AWV (Initial)] Future Scheduled AAA Screen [code = [facility] [facility] [employer] Test AAA Screen] of Medicine Future Scheduled FALL SCREEN [code = [facility] [employer] Test FALL SCREEN] of Medicine Future Scheduled PNEUMOVAX >=65 [facility] Test (PPSV23) [code = of Medicine PNEUMOVAX >=65 (PPSV23)] Future Scheduled PREVNAR >= 65 (PCV13) [employer] Test [code = PREVNAR >= 65 of Med icine (PCV13)] Future Scheduled COLON CANCER [facility] Test SCREENING: of Medicine COLONOSCOPY [code = COLON CANCER SCREENING: COLONOSCOPY] Future Scheduled FLU VACCINE > 6 [facility]lege Test MONTHS [code = FLU of Medici ne VACCINE > 6 MONTHS] Future Scheduled ABSOLUTE LYMPHOCYTE Ordered: [facility] [employer] Test COUNT [code = NOCPT] 09/21/2019 of Medi cine Future Scheduled COMPREHENSIVE Ordered: [facility] Test METABOLIC PANEL [code 09/21/2019 of Med icine = 11706-8] Future Scheduled IMMUNOGLOBULIN [facility] Test PROFILE [code = of Medicine 14630-1] Future Scheduled TETANUS SHOT (ADULT) [place] [facility] [employer] Test [code = TETANUS SHOT of Medi cine (ADULT)] Future Scheduled HEPATITIS C SCREENING [employer] Test [code = HEPATITIS C of Medic ine SCREENING] Future Scheduled MEDICARE AWV [facility] Test (Initial) [code = of Medicin e MEDICARE AWV (Initial)] Future Scheduled AAA Screen [code = [facility] Test AAA Screen] of Medicine Future Scheduled FALL SCREEN [code = [facility] [employer] Test FALL SCREEN] of Medicine Future Scheduled PNEUMOVAX >=65 [facility] Test (PPSV23) [code = of Medicine PNEUMOVAX >=65 (PPSV23)] Future Scheduled PREVNAR >= 65 (PCV13) [employer] Test [code = PREVNAR >= 65 of Med icine (PCV13)] Future Scheduled COLON CANCER [facility] Test SCREENING: of Medicine COLONOSCOPY [code = COLON CANCER SCREENING: COLONOSCOPY] Future Scheduled FLU VACCINE > 6 [facility] Test MONTHS [code = FLU of Medici ne VACCINE > 6 MONTHS] Future Scheduled URINALYSIS AUTO Ordered: [facility] Test W/SCOPE [code = 10/12/2019 of Medicine 43611-0] Future Scheduled TETANUS SHOT (ADULT) [place] [facility] [employer] Test [code = TETANUS SHOT of Medi cine (ADULT)] Future Scheduled HEPATITIS C SCREENING [employer] Test [code = HEPATITIS C of Medic ine SCREENING] Future Scheduled MEDICARE AWV [facility] Test (Initial) [code = of Medicin e MEDICARE AWV (Initial)] Future Scheduled AAA Screen [code = [employer] Test AAA Screen] of Medicine Future Scheduled FALL SCREEN [code = [facility] [employer] Test FALL SCREEN] of Medicine Future Scheduled PNEUMOVAX >=65 [facility] [employer] Test (PPSV23) [code = of Medicine PNEUMOVAX >=65 (PPSV23)] Future Scheduled PREVNAR >= 65 (PCV13) [employer] Test [code = PREVNAR >= 65 of Med icine (PCV13)] Future Scheduled COLON CANCER [facility] Test SCREENING: of Medicine COLONOSCOPY [code = COLON CANCER SCREENING: COLONOSCOPY] Future Scheduled FLU VACCINE > 6 [facility] Test MONTHS [code = FLU of Medici ne VACCINE > 6 MONTHS] Future Scheduled TETANUS SHOT (ADULT) [place] [facility] [employer] Test [code = TETANUS SHOT of Medi cine (ADULT)] Future Scheduled HEPATITIS C SCREENING [employer] Test [code = HEPATITIS C of Medic ine SCREENING] Future Scheduled ZOSTER VACCINE (1 of [place] [facility] [employer] Test 2) [code = ZOSTER of Medicin e VACCINE (1 of 2)] Future Scheduled AAA Screen [code = [facility] Test AAA Screen] of Medicine Future Scheduled PNEUMOVAX >=65 [facility] Test (PPSV23) [code = of Medicine PNEUMOVAX >=65 (PPSV23)] Future Scheduled COLON CANCER [facility] Test SCREENING: of Medicine COLONOSCOPY [code = COLON CANCER SCREENING: COLONOSCOPY] Future Scheduled MEDICARE AWV [facility] Test (Initial) [code = of Medicin e MEDICARE AWV (Initial)] Future Scheduled FLU VACCINE > 6 [facility] Test MONTHS [code = FLU of Medici ne VACCINE > 6 MONTHS] Future Scheduled FALL SCREEN [code = [facility] [employer] Test FALL SCREEN] of Medicine Future Scheduled ABSOLUTE LYMPHOCYTE Ordered: [place] Test COUNT [code = NOCPT] 09/27/2020 of Medi cine Future Scheduled COMPREHENSIVE Ordered: [facility] Test METABOLIC PANEL [code 09/27/2020 of Med icine = 92507-1] Future Scheduled IMMUNOGLOBULIN Ordered: [facility] Test PROFILE [code = 09/27/2020 of Medicine 62209-8] Future Scheduled TETANUS SHOT (ADULT) [place] [facility] [employer] Test [code = TETANUS SHOT of Medi cine (ADULT)] Future Scheduled HEPATITIS C SCREENING [employer] Test [code = HEPATITIS C of Medic ine SCREENING] Future Scheduled ZOSTER VACCINE (1 of [place] [facility] [employer] Test 2) [code = ZOSTER of Medicin e VACCINE (1 of 2)] Future Scheduled AAA Screen [code = [facility] Test AAA Screen] of Medicine Future Scheduled PNEUMOVAX >=65 [facility] [employer] Test (PPSV23) [code = of Medicine PNEUMOVAX >=65 (PPSV23)] Future Scheduled COLON CANCER [facility] Test SCREENING: of Medicine COLONOSCOPY [code = COLON CANCER SCREENING: COLONOSCOPY] Future Scheduled MEDICARE AWV [facility] Test (Initial) [code = of Medicin e MEDICARE AWV (Initial)] Future Scheduled FLU VACCINE > 6 [facility] Test MONTHS [code = FLU of Medici ne VACCINE > 6 MONTHS] Future Scheduled FALL SCREEN [code = [facility] Test FALL SCREEN] of Medicine Future Scheduled TETANUS SHOT (ADULT) [place] [facility] [employer] Test [code = TETANUS SHOT of Medi cine (ADULT)] Future Scheduled Hepatitis C screening [employer] Test (procedure) [code = of Medic ine 483631126] Future Scheduled ZOSTER VACCINE (1 of [place] [facility] [employer] Test 2) [code = ZOSTER of Medicin e VACCINE (1 of 2)] Future Scheduled Abdominal aortic [facility] Test aneurysm screening of Medici ne (procedure) [code = 218650884] Future Scheduled PNEUMOVAX >=65 [facility] Test (PPSV23) [code = of Medicine PNEUMOVAX >=65 (PPSV23)] Future Scheduled Screening for [facility] Test malignant neoplasm of of Med icine colon (procedure) [code = 218658012] Future Scheduled FLU VACCINE > 6 [facility] Test MONTHS [code = FLU of Medici ne VACCINE > 6 MONTHS] Future Scheduled FALL SCREEN [code = [facility] Test FALL SCREEN] of Medicine Future Scheduled IMMUNOGLOBULIN Ordered: [facility] Test PROFILE [code = 03/04/2019 of Medicine 74935-4] Future Scheduled MEDICARE AWV [code = [place] [facility] [employer] Test MEDICARE AWV] of Medicine Future Scheduled TETANUS SHOT (ADULT) [place] [facility] [employer] Test [code = TETANUS SHOT of Medi cine (ADULT)] Future Scheduled HEPATITIS C SCREENING [employer] Test [code = HEPATITIS C of Medic ine SCREENING] Future Scheduled AAA Screen [code = [facility] [employer] Test AAA Screen] of Medicine Future Scheduled PNEUMOVAX >=65 [facility] Test (PPSV23) [code = of Medicine PNEUMOVAX >=65 (PPSV23)] Future Scheduled PREVNAR >= 65 (PCV13) [employer] Test [code = PREVNAR >= 65 of Med icine (PCV13)] Future Scheduled COLON CANCER [facility] Test SCREENING: of Medicine COLONOSCOPY [code = COLON CANCER SCREENING: COLONOSCOPY] Future Scheduled FLU VACCINE > 6 [facility] Test MONTHS [code = FLU of Medici ne VACCINE > 6 MONTHS] Future Scheduled FALL SCREEN [code = [facility] [facility] [employer] Test FALL SCREEN] of Medicine Future Scheduled CULTURE, 2 Occurrences [facility] Test URINE/SENSITIVITY ON starting of Medi cine ALL [code = 63042-1] 10/12/2019 until 10/11/2020 Future Scheduled US RENAL BILATERAL 1 Occurrences [facility] [employer] Test [code = 79265] starting of Medicine 10/12/2019 until 10/11/2020 Future Scheduled VIDEO URODYNAMICS 1 Occurrences [facility] r [place] Test [code = 04333] starting of Medicine 10/12/2019 until 10/11/2020 Encounters Start End Encounter Admission Attending Care Care Encounter Source Date/Time Date/Time Type Type Clinicians Facility Department ID 2021-05-05 Outpatient [facility] Surgery [id number] [facility] 19:55:29 , [facility] 2021-05-05 Outpatient [facility] Surgery [id number] [facility] 03:19:02 , [facility] 2021-07-03 2021-07-03 Outpatient [facility] [id number] [place] 00:00:00 00:00:00 SP 800 Method i 2021-04-26 2021-04-26 Outpatient [facility] [id number] [facility] 07:28:23 23:59:00 Jo e of Medicin e 2021-04-16 2021-04-16 Office CarinaPHONG [id number] [facility] 09:55:21 10:48:40 Visit Polina Baptiste AMBULATOR [id number] College Y [id number] Medi geno 830 e 2021-04-04 2021-04-04 Outpatient [facility] [id number] [place] 00:00:00 00:00:00 SP [address] 2021-03-08 2021-03-08 Outpatient [facility] [id number] [place] 00:00:00 00:00:00 SP [address] 2021-02-22 2021-02-22 Outpatient [facility] [id number] [facility] 00:00:00 00:00:00 2021-02-06 2021-02-06 Outpatient BURK, [facility] [id number] [place] 00:00:00 00:00:00 JASON [address] 2021-02-06 2021-02-06 Outpatient LOVELOCK, [facility] [id number] [place] 00:00:00 00:00:00 SP [address] 2021-01-31 2021-01-31 Outpatient LOVELOCK, [facility] [id number] [place] 00:00:00 00:00:00 SP [address] 2021-01-31 2021-01-31 Outpatient LOVELOCK, [facility] [id number] [place] 00:00:00 00:00:00 SP [address] 2021-01-18 2021-01-18 Outpatient LOVELOCK, [facility] [id number] [place] 00:00:00 00:00:00 SP [address] 2021-01-10 2021-01-10 Outpatient LOVELOCK, [facility] [id number] [place] 00:00:00 00:00:00 SP [address] 2020-12-28 2020-12-28 Outpatient LOVELOCK, [facility] [id number] [place] 00:00:00 00:00:00 SP [address] 2020-12-28 2020-12-28 Outpatient CHANDRAKANT BROOKS [facility] [id number] [place] 00:00:00 00:00:00 004 Method i 2020-12-19 2020-12-19 Outpatient [facility] [id number] [place] [address] 00:00:00 00:00:00 2020-12-18 2020-12-[address] [facility] [id number] [facility] 08:49:46 14:46:06 Visit , Lee AMBULATOR [id number] College Y [id number] [facility] 300 e 2020-12-18 2020-12-18 Outpatient LOVELOCK, [facility] [id number] [place] 00:00:00 00:00:00 SP [address] 2020-12-15 2020-12-15 Outpatient [facility] [id number] [facility] 00:00:00 00:00:00 2020-12-15 2020-12-15 Outpatient STEPHENIE [facility] [id number] [facility] 00:00:00 00:00:00 2020-11-13 2020-11-13 Outpatient CARINA SLE SLE [id number] [facility] 00:00:00 00:00:00 POLINA 2020-11-13 2020-11-13 Outpatient STEPHENIE LIM SLE SLE [id number] [facility] 00:00:00 00:00:00 POLINA 2020-11-09 2020-11-09 Office Carina [facility] 1.2.840.[id number] [place] [address] 10:07:36 16:15:46 Visit Polina Baptiste AMBULATOR 350.1.13.21 [facility] 0.2.7.2.686 [phone] [facility] 830 e 2020-10-31 2020-11-03 [facility] 064 [id number] [place] 00:00:00 00:00:00 WARREN 654 Method i 2020-10-18 2020-10-18 [facility] [id number] [place] 00:00:00 00:00:00 JASON 806 Method i 2020-10-13 2020-10-13 [facility] [id number] [place] 00:00:00 00:00:00 JASON 333 Method i 2020-10-13 2020-10-13 [facility]patient [facility] [id number] [place] 00:00:00 00:00:00 JASON 716 Method i 2020-10-06 2020-10-06 Laboratory Lab, Adc [place] 1.2.840.114 [id number] 14:30:14 14:50:14 Only Fam Pob I Health 350.1.13.10 [place] 4.2.7.2.686 Professio [phone] nal 044 Office [facility] 2020-10-06 2020-10-06 Laboratory Lab, Adc Fam Pob I [facility] 1.2. 840.114 [id number] [facility] 14:30:14 14:50:14 Only Anene, [facility] 350.1.13.10 ity of [place] 4.2.7.2.686 Lino as Maria Alejandraio [phone] [address] Office [facility] 2020-10-06 2020-10-06 Outpatient Vandana [facility] [id number] Univers 14:40:00 14:40:00 SANJUANITA ity of [facility] 2020-10-06 2020-10-06 Letter Doctor DORON 1.2.840.114 [id number] 00:00:00 00:00:00 (Out) Unassigned, NISHANT 350.1.13.10 [facility] [phone] [facility] 2020-10-06 2020-10-06 Letter Doctor DORON 1.2.840.114 [id number] 00:00:00 00:00:00 (Out) Unassigned, NISHANT 350.1.13.10 [facility] 4.2.7.2.686 [id number] [facility] 2020-10-06 2020-10-06 Letter Doctor DORON 1.2.840.114 [id number] [facility] 00:00:00 00:00:00 (Out) Unassigned, NISHANT 350.1.13.10 ity of [facility] 4.2.7.2.686 Lino as [phone] [address] 2020-10-06 2020-10-06 Letter Doctor SAL 1.2.840.114 [id number] [facility] 00:00:00 00:00:00 (Out) Unassigned, NISHANT 350.1.13.10 ity of [facility] 4.2.7.2.686 Lino as [phone] [address] 2020-10-05 2020-10-05 Outpatient [facility] [id number] [facility] 00:00:00 00:00:00 2020-10-05 2020-10-05 Outpatient ELVA KHOURY [facility] [id number] [place] 00:00:00 00:00:[address] 2020-09-27 2020-09-27 Office PHONG Lim 1.2.840.114 [id number] [facility] 09:48:17 11:45:41 Visit Polina Baptiste AMBULATOR 350.1.13.21 College Y 0.2.7.2.686 of [phone] [facility]o 830 e 2020-09-25 2020-09-25 Office Ayaka [facility] 1.2.840.114 [id number] [facility] 08:52:56 11:06:52 Visit , Lee AMBULATOR 350.1.13.21 College Y 0.2.7.2.686 of [id number] [facility] 300 e 2020-09-23 2020-09-23 Outpatient GUSTAVO [facility] [id number] [place] 00:00:00 00:00:00 TANNER [address] 2020-09-13 2020-09-13 Outpatient CARINA [facility] [id number] SLE 00:00:00 00:00:00 POLINA 2020-09-13 2020-09-13 [facility] [id number] SLE 00:00:00 00:00:00 POLINA 2020-09-08 2020-09-08 Outpatient STEPHENIE [facility] SLE [id number] [facility] 00:00:00 00:00:00 2020-09-02 2020-09-02 Outpatient ASKED, NO [facility] [id number] [place] 00:00:00 00:00:[address] 2020-08-08 2020-08-08 Outpatient BHARGAVI [facility] [id number] [place] 00:00:00 00:00:00 JASON [address] 2020-07-13 2020-07-14 [facility] 788 [id number] [place] 00:00:00 00:00:00 JASON [address] 2020-07-10 2020-07-10 Outpatient BHARGAVI [facility] [id number] [place] 00:00:00 00:00:00 JASON [address] 2020-07-04 2020-07-04 Outpatient BHARGAVI [facility] [id number] [place] 00:00:00 00:00:00 JASON 053 Method i 2020-06-27 2020-06-27 Outpatient BHARGAVI [facility] [id number] [place] 00:00:00 00:00:00 JASON [address] 2020-06-26 2020-06-26 Outpatient BHARGAVI, [facility] [id number] [place] 00:00:00 00:00:00 JASON [address] 2020-06-20 2020-06-20 Outpatient BURK, [facility] [id number] [place] 00:00:00 00:00:00 JASON [address] 2020-04-25 2020-04-25 Outpatient BHARGAVI, [facility] [id number] [place] 00:00:00 00:00:00 JASON [address] 2020-03-07 2020-03-07 Outpatient LOVELOCK, [facility] [id number] [place] 00:00:00 00:00:00 SP [address] 2019-10-12 2019-10-12 Office PHONG Valdez 1.2.840.114 [id number] [facility] 09:55:07 11:22:50 Visit Tanner AMBULATOR 350.1.13.21 [employer] P Y 0.2.7.2.686 of [phone] Medi geno 300 e 2019-09-21 2019-09-21 Office PHONG Lim 1.2.840.114 [id number] [facility] 13:24:19 14:41:19 Visit Polina Baptiste AMBULATOR 350.1.13.21 College Y 0.2.7.2.686 of [id number] Medi geno 830 e 2019-08-23 2019-08-23 Office Ayaka DARLING 1.2.840.114 [id number] [facility] 11:42:57 14:11:07 Visit Lee AMBULATOR 350.1.13.21 College Y 0.2.7.2.686 of [id number] Medi geno 300 e 2019-06-08 2019-06-08 Outpatient BHARGAVI, [facility] [id number] [place] 00:00:00 00:00:00 JASON [address] 2019-03-04 2019-03-04 Office PHONG Lim 1.2.840.114 [id number] [facility] 13:15:29 14:58:57 Visit Polina Baptiste AMBULATOR 350.1.13.21 College Y 0.2.7.2.686 of [phone] [facility] 830 e Results Test Description Test Time Test Comments Results Result Comments Source SARS-CoV-2 (COVID-19) RNA [Presence] in Respiratory sp ecimen by 2020-12-28 21:45:50 NETTE with probe detection Test Item Value Reference Range Interpretation Comme nts SARS-CoV-2 (COVID-19) RNA [Presence] in Respiratory Not detected No t-Detected specimen by NETTE with probe detection (test code = 04409-7) Whether patient is employed in a healthcare setting (test code = 38841-0) Whether the patient has symptoms related to condition of interest (test code = 19669-2) Patient was hospitalized because of this condition (test code = 48998-6) Whether the patient was admitted to intensive care unit (ICU) for condition of interest (test code = 55797-3) Whether patient resides in a congregate care setting (test code = 44429-4) FL, FLUORO, NON-SPECIFIC, UP TO 1 [id number] 09:10:00Reason for exam:- >RADIOFREQUENCY ABLATION [facility] : 1945 Sex: MFluoroscopic unit utilized for a procedure performed in the OR. No interpretation was requested. Refer to the operative report for findings. Refer to PACS for patient radiation dose information.SARS-COV2/RT-PCR ([facility])2020-12-16 07:16:00 Test Item Value Reference Range Interpretation Comments SARS-COV2/RT-PCR (test Negative Not Detected, Negative, code = 0281855) See external report for linked test SARS-COV-[address] [facility] (test code = 0376581) Negative result for this test determines that SARS-CoV-2 RNA was not present in the specimen above the Limit of Detection (LOD). However, Negative results do not preclude SARS-CoV-2 infection and should not be used as the sole basis for treatment or patient management decisions. Negative results mustbe combined with clinical observations, patient history, and epidemiological information. A false negative result may occur if a specimen is improperly collected, transported or handled. A false negative result should be considered if patient's recent exposures or clinical presentation indicate that COVID-19 (SARS-CoV-2) is likely and diagnostic tests for other causes of illness are negative. Re-testing should be considered in cases of suspected false negatives.The limit of detection for this assay is 100 copies/mL.This SARS CoV-2 test is a real-time RT-PCR test intended for the qualitative detection of nucleic acid from SARS-CoV-2 in a nasopharyngeal swab specimen collected from individuals suspected of COVID-19 by their healthcare provider.This test has not been Food and Drug Administration (FDA) cleared or approved. This is a modified version of an approved Emergency Use Authorization (EUA) and is in the process of review by the FDA. Once authorized by the FDA, the issued EUA will be effective until the declaration that circumstances exist justifying the authorization of the emergency use of in vitro diagnostic tests for detection and/or diagnosis of COVID-19 is terminated under Section 564(b)(2) of the Act or the EUA is revoked under Section 564(g) of the Act.Testing was performed using the [employer] SARS-CoV-2 assay.Fact Sheet for Healthcare Providers:https://www.molecular.staples/stephanie/ NX_NRPN-ScE-2_LAS_Ndgk_Frnst_60-982296.pdfFact Sheet for Healthcare Patients:https://www.molecular.ab penny/stephanie/HY_YISA-FlD-0_Eoprkla_Lrmz_Btphz_KD_06-529639Y6.pdfPerforming Laboratory:[facility] [place] [address] URINALYSIS [id number] 15:50:00 Test Item Value Reference Range Interpretation Comments RBC UA (BEAKER) (test code = 519) 12 /HPF WBC UA (BEAKER) (test code = 520) 5 /HPF MUCUS (BEAKER) (test code = 1574) Many SQUAMOUS EPITHELIAL (BEAKER) (test 1 /HPF code = 516) HYALINE CASTS (BEAKER) (test code = 6 /LPF 514) CALCIUM OXALATE CRYSTALS (BEAKER) Few (test code = 518) [facility] ID - techURINALYSIS WITH MICROSCOPIC IF [id number] 15:30:00 Test Item Value Reference Range Interpretation Comments COLOR (BEAKER) (test code = 470) Yellow CLARITY (BEAKER) (test code = 469) Hazy SPECIFIC GRAVITY UA (BEAKER) (test 1.027 1.001-1.035 code = 468) PH UA (BEAKER) (test code = 467) 5.5 5.0-8.0 PROTEIN UA (BEAKER) (test code = 20 mg/dL Negative A 464) GLUCOSE UA (BEAKER) (test code = Negative Negative 365) KETONES UA (BEAKER) (test code = Negative Negative 371) BILIRUBIN UA (BEAKER) (test code = Negative Negative 462) BLOOD UA (BEAKER) (test code = 461) Small Negative A NITRITE UA (BEAKER) (test code = Negative Negative 465) LEUKOCYTE ESTERASE UA (BEAKER) Small Negative A (test code = 466) UROBILINOGEN UA (BEAKER) (test code 2.0 mg/dL 0.2-1.0 H = 463) SOURCE(BEAKER) (test code = 2795) [facility] ID - [auto]BASIC METABOLIC [id number] 15:22:00 Test Item Value Reference Range Interpretation Comments SODIUM (BEAKER) 141 meq/L 136-145 (test code = 381) POTASSIUM (BEAKER) 4.3 meq/L 3.5-5.1 (test code = 379) CHLORIDE (BEAKER) 104 meq/L 98-107 (test code = 382) CO2 (BEAKER) (test 31 meq/L 22-29 H code = 355) BLOOD UREA NITROGEN 13 mg/dL 7-21 (BEAKER) (test code = 354) CREATININE (BEAKER) 0.92 mg/dL 0.57-1.25 (test code = 358) GLUCOSE RANDOM 107 mg/dL 70-105 H (BEAKER) (test code = 652) CALCIUM (BEAKER) 9.4 mg/dL 8.4-10.2 (test code = 697) EGFR (BEAKER) (test 80 mL/min/1.73 ESTIMA LILY GFR IS code = 1092) sq m NOT ACCURATE CREATININE CLEARANCE IN PREDICTING GLOMERULAR FILTRATION RATE . ESTIMATED GFR I S NOT APPLICABLE FOR DIALYSIS PATIEN TS. [facility] ID - [id number] 15:07:00 Test Item Value Reference Range Interpretation Comments PARTIAL THROMBOPLASTIN TIME 32.0 seconds 22.5-36.0 (BEAKER) (test code = 760) PROTHROMBIN TIME/[id number] 15:06:00 Test Item Value Reference Range Interpretation Comments PROTIME (BEAKER) 13.9 seconds 11.9-14.2 (test code = 759) INR (BEAKER) (test 1.11 See_Comment [Automat ed message] code = 370) The system [employer] generated this result transmitted ref erence range: <=5.90. The reference range was not used to int erpret this result as normal/abnormal . RECOMMENDED COUMADIN/WARFARIN INR THERAPY RANGESSTANDARD DOSE: 2.0 - 3.0 Includes: PROPHYLAXIS forvenous thrombosis, systemic embolization; TREATMENT for venous thrombosis and/or pulmonary embolus.HIGH RISK: Target INR is 2.5-3.5 for patients with mechanical heart valves.CBC W/PLT COUNT & AUTO DIFFERENTIAL 2020-12-15 15:03:00 Test Item Value Reference Range Interpretation Comments WHITE BLOOD CELL COUNT (BEAKER) 5.2 K/ L 3.5-10.5 (test code = 775) RED BLOOD CELL COUNT (BEAKER) 4.16 M/ L 4.63-6.08 L (test code = 761) HEMOGLOBIN (BEAKER) (test code = 13.9 GM/DL 13.7-17.5 410) HEMATOCRIT (BEAKER) (test code = 42.8 % 40.1-51.0 411) MEAN CORPUSCULAR VOLUME (BEAKER) 102.9 fL 79.0-92.2 H (test code = 753) MEAN CORPUSCULAR HEMOGLOBIN 33.4 pg 25.7-32.2 H (BEAKER) (test code = 751) MEAN CORPUSCULAR HEMOGLOBIN CONC 32.5 GM/DL 32.3-36.5 (BEAKER) (test code = 752) RED CELL DISTRIBUTION WIDTH 15.8 % 11.6-14.4 H (BEAKER) (test code = 412) PLATELET COUNT (BEAKER) (test 229 K/CU MM 150-450 code = 756) MEAN PLATELET VOLUME (BEAKER) 10.3 fL 9.4-12.4 (test code = 754) NUCLEATED RED BLOOD CELLS 0 /100 WBC 0-0 (BEAKER) (test code = 413) NEUTROPHILS RELATIVE PERCENT 60 % (BEAKER) (test code = 429) LYMPHOCYTES RELATIVE PERCENT 20 % (BEAKER) (test code = 430) MONOCYTES RELATIVE PERCENT 13 % (BEAKER) (test code = 431) EOSINOPHILS RELATIVE PERCENT 5 % (BEAKER) (test code = 432) BASOPHILS RELATIVE PERCENT 1 % (BEAKER) (test code = 437) NEUTROPHILS ABSOLUTE COUNT 3.11 K/ L 1.78-5.38 (BEAKER) (test code = 670) LYMPHOCYTES ABSOLUTE COUNT 1.05 K/ L 1.32-3.57 L (BEAKER) (test code = 414) MONOCYTES ABSOLUTE COUNT (BEAKER) 0.69 K/ L 0.30-0.82 (test code = 415) EOSINOPHILS ABSOLUTE COUNT 0.25 K/ L 0.04-0.54 (BEAKER) (test code = 416) BASOPHILS ABSOLUTE COUNT (BEAKER) 0.05 K/ L 0.01-0.08 (test code = 417) IMMATURE GRANULOCYTES-RELATIVE 0 % 0-1 PERCENT (BEAKER) (test code = 2801) RAD, CHEST, 2 [id number] 14:53:00Reason for exam:->[facility]op testing [facility] 1945 Sex: MFINAL REPORT HISTORY: Preoperative examination COMPARISON: Chest r adiographs of 09/08/2020 and 11/12/2015 FINDINGS: Mild scarring in the right upper lobe. No pleural effusions or pneumothorax. The heart shadow is normal in size. The thoracic aorta is tortuous, unchanged. Degenerative changes are present in the spine. IMPRESSION: No evidence of acute cardiopulmonary disease. Signed: Yumiko Sosaepaneta Verified Date/Time: 12/15/2020 14:53:22 Reading Location: [facility] Radiology Reading Room JH-ZaM-6 (COVID-19) RNA [Presence] in Respiratory specimen by NETTE with probe [id number] 15:18:59 Test Item Value Reference Range Interpretation Comments SARS-CoV-2 (COVID-19) RNA Not detected Not-Detected [Presence] in Respiratory specimen by NETTE with probe detection (test code = 08236-7) SARS-COV2/RT-PCR ([facility])2020-09-08 17:47:00 Test Item Value Reference Range Interpretation Comments SARS-COV2/RT-PCR (test Negative Not Detected, Negative, code = 8422028) See external report for linked test SARS-COV-2 PERFORMING LAB [facility] (test code = 2281497) Negative result for this test determines that SARS-CoV-2 RNA was not present in the specimen above the Limit of Detection (LOD). However, Negative results do not preclude SARS-CoV-2 infection and should not be used as the sole basis for treatment or patient management decisions. Negative results mustbe combined with clinical observations, patient history, and epidemiological information. A false negative result may occur if a specimen is improperly collected, transported or handled. A false negative result should be considered if patient's recent exposures or clinical presentation indicate that COVID-19 (SARS-CoV-2) is likely and diagnostic tests for other causes of illness are negative. Re-testing should be considered in cases of suspected false negatives.The limit of detection for this assay is 800 copies/mL.This SARS CoV-2 test is a real-time RT-PCR test intended for the qualitative detection of nucleic acid from SARS-CoV-2 in a nasopharyngeal swab specimen collected from individuals suspected of COVID-19 by their healthcare provider.This test has not been Food and Drug Administration (FDA) cleared or approved. This is a modified version of an approved Emergency Use Authorization (EUA) and is in the process of review by the FDA. Once authorized by the FDA, the issued EUA will be effective until the declaration that circumstances exist justifying the authorization of the emergency use of in vitro diagnostic tests for detection and/or diagnosis of COVID-19 is terminated under Section 564(b)(2) of the Act or the EUA is revoked under Section 564(g) of the Act.Fact Sheet for Healthcare Providers:https://www.[employer]/sites/default/files/product/documents/Fact_Shee z_HG_Vmtoczlfg_Jgmv_ZVKL-DzG-3.pdfFact Sheet for Healthcare Patients:https://www.[employer]/sites/default/files/product/ documents/Vsmz_Yjdec_Nzytxhzg_Ejvs_ZKDC-FmD-4.pdfPerforming Laboratory:[facility], [place] [address]SAS, CHEST, 2 VIEWS 2020-09-08 12:56:00Reason for exam:->[facility]inal [facility] IRA[facility] : 1945 Sex: MFINAL REPORT TECHNIQUE: Frontal and lateral views of the chest. IND ICATION: Trigeminal neuralgia. COMPARISON: Chest radiographs from 03/13/2016. FINDINGS: LINES/TUBES:None. LUNGS: A questionable nodular opacity in the right upper lung measures 0.9 cm. No consolidation or pulmonary edema. PLEURA: No pleural effusion or pneumothorax. HEART AND MEDIASTINUM: The cardiacsilhouette is normal in size. Tortuous thoracic aorta. Multiple coronary arterial stents over the left heart. SOFT TISSUES AND BONES: Unremarkable. IMPRESSION: No acute intrathoracic abnormality. A questionable nodular nodular opacity in the right upper lung measures 0.9 cm. Further evaluation with achest CT is recommended. Signed: Zenon Li MDReport Verified Date/Time: 09/08/2020 12:56:25 E lectronically signed by: ZENON LI MD on 09/08/2020 12:56 PMPROTHROMBIN TIME/[id number] 11:09:00 Test Item Value Reference Range Interpretation Comments PROTIME (BEAKER) 14.1 seconds 11.9-14.2 (test code = 759) INR (BEAKER) (test 1.12 See_Comment [Automat ed message] code = 370) The system [employer] generated this result transmitted ref erence range: <=5.90. The reference range was not used to int erpret this result as normal/abnormal . Effective 12/23/2018: PT Reference Range ChangeNew: 11.9-14.2 Previous: 11.7- 14.7RECOMMENDED COUMADIN/WARFARIN INR THERAPY RANGESSTANDARD DOSE: 2.0-3.0 Includes: PROPHYLAXIS for venous thrombosis, systemic embolization; TREATMENT for venous thrombosis and/or pulmonary embolus.HIGH RISK: Target INR is2.5-3.5 for patients wiht mechanical heart valves.[id number] 11:09:00 Test Item Value Reference Range Interpretation Comments PARTIAL THROMBOPLASTIN TIME 25.8 seconds 22.5-36.0 (BEAKER) (test code = 760) BASIC METABOLIC [id number] 11:07:00 Test Item Value Reference Range Interpretation Comments SODIUM (BEAKER) 142 meq/L 136-145 (test code = 381) POTASSIUM (BEAKER) 4.1 meq/L 3.5-5.1 (test code = 379) CHLORIDE (BEAKER) 105 meq/L 98-107 (test code = 382) CO2 (BEAKER) (test 29 meq/L 22-29 code = 355) BLOOD UREA NITROGEN 14 mg/dL 7-21 (BEAKER) (test code = 354) CREATININE (BEAKER) 1.07 mg/dL 0.57-1.25 (test code = 358) GLUCOSE RANDOM 121 mg/dL 70-105 H (BEAKER) (test code = 652) CALCIUM (BEAKER) 9.3 mg/dL 8.4-10.2 (test code = 697) EGFR (BEAKER) (test 68 mL/min/1.73 ESTIMA LILY GFR IS code = 1092) sq m NOT ACCURATE CREATININE CLEARANCE IN PREDICTING GLOMERULAR FILTRATION RATE . ESTIMATED GFR I S NOT APPLICABLE FOR DIALYSIS PATIEN TS. [facility] ID - PIAYA LCBC W/PLT COUNT & AUTO [id number] 10:57:00 Test Item Value Reference Range Interpretation Comments WHITE BLOOD CELL COUNT (BEAKER) 8.4 K/ L 3.5-10.5 (test code = 775) RED BLOOD CELL COUNT (BEAKER) 4.33 M/ L 4.63-6.08 L (test code = 761) HEMOGLOBIN (BEAKER) (test code = 15.0 GM/DL 13.7-17.5 410) HEMATOCRIT (BEAKER) (test code = 45.4 % 40.1-51.0 411) MEAN CORPUSCULAR VOLUME (BEAKER) 104.8 fL 79.0-92.2 H (test code = 753) MEAN CORPUSCULAR HEMOGLOBIN 34.6 pg 25.7-32.2 H (BEAKER) (test code = 751) MEAN CORPUSCULAR HEMOGLOBIN CONC 33.0 GM/DL 32.3-36.5 (BEAKER) (test code = 752) RED CELL DISTRIBUTION WIDTH 12.3 % 11.6-14.4 (BEAKER) (test code = 412) PLATELET COUNT (BEAKER) (test 347 K/CU MM 150-450 code = 756) MEAN PLATELET VOLUME (BEAKER) 9.1 fL 9.4-12.4 L (test code = 754) NUCLEATED RED BLOOD CELLS 0 /100 WBC 0-0 (BEAKER) (test code = 413) NEUTROPHILS RELATIVE PERCENT 82 % (BEAKER) (test code = 429) LYMPHOCYTES RELATIVE PERCENT 9 % (BEAKER) (test code = 430) MONOCYTES RELATIVE PERCENT 7 % (BEAKER) (test code = 431) EOSINOPHILS RELATIVE PERCENT 1 % (BEAKER) (test code = 432) BASOPHILS RELATIVE PERCENT 0 % (BEAKER) (test code = 437) NEUTROPHILS ABSOLUTE COUNT 6.84 K/ L 1.78-5.38 H (BEAKER) (test code = 670) LYMPHOCYTES ABSOLUTE COUNT 0.77 K/ L 1.32-3.57 L (BEAKER) (test code = 414) MONOCYTES ABSOLUTE COUNT (BEAKER) 0.60 K/ L 0.30-0.82 (test code = 415) EOSINOPHILS ABSOLUTE COUNT 0.10 K/ L 0.04-0.54 (BEAKER) (test code = 416) BASOPHILS ABSOLUTE COUNT (BEAKER) 0.03 K/ L 0.01-0.08 (test code = 417) IMMATURE GRANULOCYTES-RELATIVE 1 % 0-1 PERCENT (BEAKER) (test code = 2801) SARS-CoV-2 (COVID-19) RNA [Presence] in Respiratory specimen by NETTE with probe [id number] 20:54:07 Test Item Value Reference Range Interpretation Comments SARS-CoV-2 (COVID-19) RNA Not detected Not-Detected [Presence] in Respiratory specimen by NTETE with probe detection (test code = 92962-0) FL, FLUORO, NON-SPECIFIC, UP TO 1 [id number] 09:54:00Reason for exam:- >RADIOFREQUENCY ABLATION OF TRIGEMINAL NERVEFINAL REPORT A fluoroscopic unit was utilized for a procedure performed in the operating room. No interpretation was requested. Please refer to the operative report regarding findings. Please refer to PACS for patient radiation dose information. Signed: Ace Longo MDReport Verified Date/Time: 08/31/2019 09:54:29 Reading Location: [facility] Radiology Reading Room BASIC METABOLIC [id number] 07:46:00 Test Item Value Reference Range Interpretation Comments SODIUM (BEAKER) 140 meq/L 136-145 (test code = 381) POTASSIUM (BEAKER) 4.4 meq/L 3.5-5.1 (test code = 379) CHLORIDE (BEAKER) 108 meq/L 98-107 H (test code = 382) CO2 (BEAKER) (test 25 meq/L 22-29 code = 355) BLOOD UREA NITROGEN 11 mg/dL 7-21 (BEAKER) (test code = 354) CREATININE (BEAKER) 1.04 mg/dL 0.57-1.25 (test code = 358) GLUCOSE RANDOM 101 mg/dL 70-105 (BEAKER) (test code = 652) CALCIUM (BEAKER) 9.0 mg/dL 8.4-10.2 (test code = 697) EGFR (BEAKER) (test 70 mL/min/1.73 ESTIMA LILY GFR IS code = 1092) sq m NOT ACCURATE CREATININE CLEARANCE IN PREDICTING GLOMERULAR FILTRATION RATE . ESTIMATED GFR I S NOT APPLICABLE FOR DIALYSIS PATIEN TS. [facility] ID - ZORAIDA [id number] 07:13:00 Test Item Value Reference Range Interpretation Comments PARTIAL THROMBOPLASTIN TIME 33.7 seconds 22.5-36.0 (BEAKER) (test code = 760) PROTHROMBIN [id number] 07:12:00 Test Item Value Reference Range Interpretation Comments PROTIME (BEAKER) (test code = 15.4 seconds 11.9-14.2 H 759) INR (BEAKER) (test code = 370) 1.3 <=5.9 Effective 12/23/2018: PT Reference Range ChangeNew: 11.9-14.2 Previous: 11.7- 14.7RECOMMENDED COUMADIN/WARFARIN INR THERAPY RANGESSTANDARD DOSE: 2.0-3.0 Includes: PROPHYLAXIS for venous thrombosis, systemic embolization; TREATMENT for venous thrombosis and/or pulmonary embolus.HIGH RISK: Target INR is2.5-3.5 for patients wiht mechanical heart valves.CBC W/PLT COUNT & AUTO [id number] 07:06:00 Test Item Value Reference Range Interpretation Comments WHITE BLOOD CELL COUNT (BEAKER) 8.7 K/ L 3.5-10.5 (test code = 775) RED BLOOD CELL COUNT (BEAKER) 3.68 M/ L 4.63-6.08 L (test code = 761) HEMOGLOBIN (BEAKER) (test code = 12.7 GM/DL 13.7-17.5 L 410) HEMATOCRIT (BEAKER) (test code = 39.4 % 40.1-51.0 L 411) MEAN CORPUSCULAR VOLUME (BEAKER) 107.1 fL 79.0-92.2 H (test code = 753) MEAN CORPUSCULAR HEMOGLOBIN 34.5 pg 25.7-32.2 H (BEAKER) (test code = 751) MEAN CORPUSCULAR HEMOGLOBIN CONC 32.2 GM/DL 32.3-36.5 L (BEAKER) (test code = 752) RED CELL DISTRIBUTION WIDTH 14.3 % 11.6-14.4 (BEAKER) (test code = 412) PLATELET COUNT (BEAKER) (test 249 K/CU MM 150-450 code = 756) MEAN PLATELET VOLUME (BEAKER) 9.7 fL 9.4-12.4 (test code = 754) NUCLEATED RED BLOOD CELLS 0 /100 WBC 0-0 (BEAKER) (test code = 413) NEUTROPHILS RELATIVE PERCENT 78 % (BEAKER) (test code = 429) LYMPHOCYTES RELATIVE PERCENT 10 % (BEAKER) (test code = 430) MONOCYTES RELATIVE PERCENT 8 % (BEAKER) (test code = 431) EOSINOPHILS RELATIVE PERCENT 3 % (BEAKER) (test code = 432) BASOPHILS RELATIVE PERCENT 1 % (BEAKER) (test code = 437) NEUTROPHILS ABSOLUTE COUNT 6.73 K/ L 1.78-5.38 H (BEAKER) (test code = 670) LYMPHOCYTES ABSOLUTE COUNT 0.90 K/ L 1.32-3.57 L (BEAKER) (test code = 414) MONOCYTES ABSOLUTE COUNT (BEAKER) 0.73 K/ L 0.30-0.82 (test code = 415) EOSINOPHILS ABSOLUTE COUNT 0.22 K/ L 0.04-0.54 (BEAKER) (test code = 416) BASOPHILS ABSOLUTE COUNT (BEAKER) 0.05 K/ L 0.01-0.08 (test code = 417) IMMATURE GRANULOCYTES-RELATIVE 0 % 0-1 PERCENT (BEAKER) (test code = 2801) MR, SPINE, CERVICAL, WITHOUT / WITH IV [id number] 11:05:00FINAL REPORT Exam: Cervical spine MRI without with IV contrastHistory: 73-year-old male with multiple sclerosisComparison studies: Cervical spine MRI 03/26/2018. Technique:Precontrast sagittal T1, T2 and inversion recovery, axial T1 and T2 cervical and thoracic. Postcontrast axial and sagittal [id number] contrast: 9 cc of Gadavist. Findings: Several pulse sequences are somewhat limited by artifacts related to patient motion. Spinal Cord: Normal in size and signal from the foramen magnum through T1. T2 lesion load: No gross new lesions. Multiple scattered demyelinating lesions. Clinical Recruiter lesions are grossly unchanged and described as follows: C1-C2: Left left paramedian central-dorsal cord.C2: Left lateral cordC2-C3: Dorsal cord.Inferior C3: Left lateral cord. C3-C4:Ill-defined lesion in theC3-C4: Ill-defined lesion in the right satya- /posterior cord.C4: Left posterior cord. Previously described lesion in the right posterior cord may be present but obscured by artifacts.C5: Ventral, left lateral right posterior cord.C6: Ventral cord.Previously described possible le darin in the cord at C7 if present may be observed artifacts on the current exam. T1 hypointense foci: None.Enhancement: None. Additional comments:Alignment: Minimal anterolisthesis of C5 on C6 is unchanged.Cervicomedullary junction: No abnormalities. The foramen magnum is patent. No Chiari one malformation.Soft tissues tissues: No signal abnormalities.Vertebral bodies: No compression fractures fromC2 through T3. Incidental findings: Mild multilevel disc degeneration with multilevel facet arthrosis and moderate foraminal stenosis on the left at C6-C7 due to a disc ossify complex and uncovertebralarthrosis, unchanged. IMPRESSION: 1.No new or enhancing lesions.2.Nonenhancing demyelinating lesionsare unchanged from the prior cervical spine MRI of 03/26/2018. Signed: Yumiko Abad MDReport Verified Date/Time: 02/16/2019 11:05:03 Reading Location: [facility] Room [address] [place] [address] [facility] signed by: Yumiko Abad on 02/16/2019 11:05 AMMR, BRAIN, WITHOUT / WITH IV [id number] 10:50:00FINAL REPORT Exam: Brain MRI without with IV contrastHistory: 73-year-old male with multiple sclerosisComparison studies: Multiple prior brain MRIs which date to 01/09/2016, most recent 03/26/2018 Technique:Brain: Precontrast axial DWI, T1, T2, T2 FLAIR, 3-D T2 FLAIR FS reconstructed in the axial, sagittal and coronal planes. Postcontrast 3-D T1 FS reconstructed in the axial, sagittal and coronal planes.Intravenous contrast: 9 cc of Gadavist. Findings: T2 lesion load: Number: Greater than 50 discrete and too confluent to count or measure. Location: Juxtacortical, subcortical, deep supratentorial and periventricular, callosal septal interface, jim. New or more conspicuous lesion along the left superior cerebellar peduncle (axial T2 FLAIR, image 19). T1 hypointense foci: Moderately T1 hypointense lesions in the right frontal taylor radiata and bilateral putamina which may reflect chronic lacunar infarcts or less likely demyelinating lesions are unchanged. Inferior left precentral demyelinating or ischemic insult which was enhancing on the prior exam is now moderately T1 hypointense. Enhancing lesions: Subtle 2 mm enhancing focus in the right jim which was not identified on prior exams (axial postcontrast T1, series 602). No other enhancing lesions. Corpus callosum volume: Adequate for patient's age.Brain volume: Mild generalized brain volume loss. Other: No extra axialfluid collection, hemorrhage, hydrocephalus or acute ischemia. Incidental findings: Chronic inflammatory changes with mucosal thickening with retention cysts in the ethmoid sinuses (left greater than right) and left sphenoid as well as nasopharyngeal polyps or retention cyst which extend posteriorly to the nasopharynx are unchanged. IMPRESSION: 1.New subtle enhancing lesion in the right paramedian jim.2.Possible new nonenhancing lesion along the left superior cerebellar peduncle.3.Chronic lesion in the left precentral gyrus (previously subacute and enhancing and 12/2017) is now moderately T1 hypointense.4.Other nonenhancing white matter lesions which likely reflect a combination of demyelination and chronic ischemic changes are unchanged from the prior brain MRI of 01/24/2018. Signed: Yumiko Abad MDReport Verified Date/Time: 02/16/2019 10:50:04 Reading Location: [facility] Reading Room [address] [place] [address] POCT-CREATININE 2019-02-15 10:10:00 Test Item Value Reference Range Interpretation Comments POC-CREATININE 1.2 mg/dL 0.6-1.3 TESTED AT [facility] 7200 ([facility]) (test VIKI D G A code = 1859) 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 Duran, as an intra-procedure imaging consultation was not requested. Reported fluoroscopy time: 49.4 seconds. Signed: Christopher Sarkar Verified Date/Time: 07/17/2018 13:40:25 Reading Location: [facility] Radiology Reading Room
--- NOTE | 2021-08-10 16:21 | RAD REPORT ---
EXAM DESCRIPTION: CT - Head Brain Wo Cont - 08/10/2021 4:00 pm CLINICAL HISTORY: Right leg weakness COMPARISON: 2017 TECHNIQUE: Computed axial tomography of the head was obtained. IV contrast was not requested. All CT scans are performed using dose optimization technique as appropriate and may include automated exposure control or mA/KV adjustment according to patient size. FINDINGS: An intracranial bleed is not seen . The ventricles are normal in caliber. No extra-axial fluid collection is noted. Mild to moderate low-density areas within periventricular, deep and subcortical white matter likely r epresent ischemic changes secondary to small vessel disease. 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 Fluid within the sinuses/ mastoids is not seen. Mild chronic sinusitis IMPRESSION: No acute intracranial abnormality is seen. If patient's symptoms persist MRI of the bra in would be recommended.
[2021-08-10 16:30] LABS: Absolute Lymphocytes (CBC) 0.6 K/uL (0.7-4.9); Hematocrit 44.5 % (39.6-49.0); Lymphocytes % 7.5 % (15.3-44.8); MPV 8.2 fL (7.6-11.3); RBC Red Blood Cell Count 4.29 M/uL (4.33-5.43)
[2021-08-10 16:46] LABS: Protime INR 1.19
[2021-08-10] MEDS ORDERED: LORazepam 2 MG/ML VIAL ONE (16:48)
--- NOTE | 2021-08-10 16:54 | RAD REPORT ---
EXAM DESCRIPTION: Kim Single View08/10/2021 4:40 pm CLINICAL HISTORY: Chest pain COMPARISON: 2019 FINDINGS: The lungs are hyperaerated. The lungs appear clear of acute infiltrate. The heart is normal size IMPRESSION: No acute abnormalities displayed
[2021-08-10 17:09] LABS: Albumin 4.1 g/dL (3.4-5.0); Bilirubin Direct 0.2 mg/dL (0-0.2); Bilirubin Total 0.4 mg/dL (0.2-1.0); Magnesium 2.4 mg/dL (1.8-2.4); Potassium 4.7 mmol/L (3.5-5.1); Protein, Total 7.4 g/dL (6.4-8.2); Troponin High Sensitivity 10.6 pg/mL (<58.9)
[2021-08-10] MEDS ORDERED: NA CHLORIDE 0.9% 500 ML ONE ×2 (17:26→20:20)
[2021-08-10 18:19] LABS: Urine Blood 2+ (Negative); Urine Glucose Negative (Negative); Urine Protein 1+ (Negative); Urine Specific Gravity >=1.030 (1.005-1.030); Urine pH 5.5 (5.0-7.0)
[2021-08-10 18:59] LABS: Urine Bacteria <20 /HPF (NONE SEEN); Urine RBC >50 /HPF (NONE SEEN)
[2021-08-10 19:00] LABS: Urine Mucus LIGHT /HPF (NONE SEEN)
[2021-08-10] MEDS ORDERED: CEFTRIAXONE 1000 MG/VIAL ONE (19:36)
[2021-08-10] MEDS ORDERED: NA CHLORIDE 0.9% 50 ML ONE (19:36)
--- NOTE | 2021-08-10 20:09 | ER ---
Nurse's Notes [facility] Name: Terrance Monroy Age: 75 yrs Sex: Male : 1945 Arrival Date: 08/10/2021 Time: 14:25 Bed 14 Private MD: Diagnosis: Other abnormalities of gait and mobility;UTI/ Urinary tract infection, site not specified Presentation: 08/10 14:25 Chief complaint:. Chief complaint: Patient states: pt states he feels weak, has cb5 recently been DX with a UTI. Coronavirus screen: Vaccine status: Patient reports receiving the 2nd dose of the covid vaccine. Ebola Screen: Patient denies exposure to infectious person. Patient denies travel to an Ebola-affected area in the 21 days before illness onset. Initial Sepsis Screen: Does the patient meet any 2 criteria? No. Patient's initial sepsis screen is negative. Does the patient have a suspected source of infection? No. Patient's initial sepsis screen is negative. Risk Assessment: Do you want to hurt yourself or someone else? Patient reports no desire to harm self or others. 14:25 Method Of Arrival: EMS: [facility] cb5 14:25 Acuity: RADHA 3 cb5 14:42 Onset of symptoms was August 01, 2021. cb5 Triage Assessment: 14:30 General: Appears in no apparent distress. comfortable, well groomed, well nourished, cb5 Behavior is calm, cooperative, appropriate for age. Pain: Pain currently is 2 out of 10 on a pain scale. Historical: - Allergies: 22:27 No Known Allergies; mk - PMHx: 15:13 Atrial Fib; atrial flutter; MS; Trigeminal nueralgia; ulcerative colitis; Hypertension; cb5 High Cholesterol; TMJ; back surgery; back spasms; Hypothyroidism; - Immunization history:: Adult Immunizations up to date, Client reports receiving the 2nd dose of the Covid vaccine. - Social history:: Smoking status: unknown. Screenin:36 Abuse screen: Denies threats or abuse. Denies injuries from another. Nutritional cb5 screening: No deficits noted. Tuberculosis screening: No symptoms or risk factors identified. Fall Risk Fall in past 12 months (25 points). Assessment: 14:31 General: Appears in no apparent distress. comfortable, well groomed, well nourished, cb5 Behavior is calm, cooperative, appropriate for age. Pain: Pain currently is 2 out of 10 on a pain scale. Neuro: Level of Consciousness is awake, alert, obeys commands, Oriented to person, place, time, situation, Appropriate for age Supervisor Customer Services are equal bilaterally Weakness in left in right leg(s) Gait is unsteady, Speech is slurred, Facial droop on right, Intact Reports weakness Denies blurred vision difficulty swallowing, headache. Cardiovascular: No deficits noted. Respiratory: No deficits noted. GI: Patient currently denies. : Reports recently DX with UTI. EENT: No deficits noted. Derm: No deficits noted. Musculoskeletal: Reports weakness in right leg. 16:30 Reassessment: No changes from previously documented assessment. cb5 19:20 General: Appears in no apparent distress. Behavior is calm, cooperative. Pain: Denies mk pain. Neuro: Level of Consciousness is awake, alert, obeys commands, Oriented to person, place, time, situation, Supervisor Customer Services are equal bilaterally Weakness in left in right leg(s) Gait is unsteady, Speech is slurred, Facial droop on right, Pupils are PERRLA, Pupil Size: 3 bilaterally Intact. Cardiovascular: Capillary refill < 3 seconds Clubbing of nail beds is absent JVD is absent Patient's skin is warm and dry. Pulses are 2+ in right radial artery, right dorsalis pedis artery, left radial artery and left dorsalis pedis artery Rhythm is regular. Respiratory: Airway is patent Trachea midline Respiratory effort is even, unlabored, Respiratory pattern is regular, symmetrical, Breath sounds are clear. GI: Abdomen is flat, non-distended. : No signs and/or symptoms were reported regarding the genitourinary system. Derm: No signs and/or symptoms reported regarding the dermatologic system. Musculoskeletal: Circulation, motion, and sensation intact. Capillary refill < 3 seconds, fingers. toes. Range of motion: intact in all extremities. 19:50 General: Appears in no apparent distress. Behavior is appropriate for age. Neuro: Level sm5 of Consciousness is awake, alert, Oriented to person, place, time, situation. Cardiovascular: Capillary refill < 3 seconds Patient's skin is warm and dry. 19:52 Reassessment: pt's asking for food for patient. sandwich and water given to pt. sm5 20:20 Reassessment: No changes from previously documented assessment. Patient and/or family mk updated on plan of care and expected duration. Pain level reassessed. Patient is alert, oriented x 3, equal unlabored respirations, skin warm/dry/pink. 21:20 Reassessment: No changes from previously documented assessment. Patient and/or family mk updated on plan of care and expected duration. Pain level reassessed. Patient is alert, oriented x 3, equal unlabored respirations, skin warm/dry/pink. 22:22 Reassessment: No changes from previously documented assessment. Patient and/or family mk updated on plan of care and expected duration. Pain level reassessed. Patient is alert, oriented x 3, equal unlabored respirations, skin warm/dry/pink. Vital Signs: 14:25 BP 150 / 84; Pulse 74; Resp 16; Temp 98.6; Pulse Ox 98% ; Weight 76.2 kg; Height 6 ft. cb5 4 in. (193.04 cm); Pain 2/10; 14:30 BP 150 / 84; Pulse 74; Resp 16; Temp 98.6; Pulse Ox 100% ; Pain 2/10; cb5 19:30 BP 160 / 93; Pulse 61; Resp 18; Pulse Ox 100% on R/A; mk 20:30 BP 111 / 64; Pulse 57; Resp 18; Pulse Ox 99% on R/A; mk 21:30 BP 124 / 88; Pulse 58; Resp 18; Pulse Ox 98% on R/A; mk 22:30 BP 98 / 68; Pulse 56; Resp 18; Pulse Ox 100% ; mk 14:25 Body Mass Index 20.45 (76.20 kg, 193.04 cm) cb5 Roxanna Coma Score: 19:30 Eye Response: spontaneous(4). Verbal Response: oriented(5). Motor Response: obeys mk commands(6). Total: 15. 20:30 Eye Response: spontaneous(4). Verbal Response: oriented(5). Motor Response: obeys mk commands(6). Total: 15. 21:30 Eye Response: spontaneous(4). Verbal Response: oriented(5). Motor Response: obeys mk commands(6). Total: 15. 22:30 Eye Response: spontaneous(4). Verbal Response: oriented(5). Motor Response: obeys mk commands(6). Total: 15. NIH Stroke Scale Scores: 14:36 NIHSS Score: 1 cb5 15:40 NIHSS Score: 3 cp ED Course: 14:25 Patient arrived in ED. cb5 14:25 Frieda Ontiveros, RN is Primary Nurse. cb5 14:29 Triage completed. cb5 14:30 Arm band placed on. cb5 14:38 No provider procedures requiring assistance completed. cb5 14:42 Patient has correct armband on for positive identification. Allergy band placed. Fall cb5 risk band placed. Call light in reach. Side rails up X2. 15:13 Ruddy West PA is PHCP. cp 15:13 Horacio Fajardo MD is Attending Physician. cp 15:59 CT Head Brain wo Cont In Process Unspecified. EDMS 16:40 XRAY Chest (1 view) In Process Unspecified. EDMS 18:18 Urine Microscopic Only Sent. 3 18:19 monitor technician on. Pulse ox on. NIBP on. 5 18:19 Urine Dipstick-Ancillary Sent. 5 18:19 Urine collected: clean catch specimen, naye colored. 5 18:41 Urine Microscopic Only Sent. 5 19:03 Report given to Glenny Hinds 5 20:08 Jyothi Mccollum MD is Hospitalizing Provider. cp 20:10 Inserted saline lock: 18 gauge in right forearm, using aseptic technique. Patient mk admitted, IV remains in place. 22:45 Report given to Bull GORDON for admit. Administered Medications: 16:50 Drug: Ativan (LORazepam) 0.5 mg Route: IVP; Site: left antecubital; ld1 17:31 Drug: NS 0.9% 500 ml Route: IV; Rate: 500 ml/hr; Site: left antecubital; cb5 22:39 Follow up: Response: No adverse reaction; IV Status: Completed infusion; IV Intake: mk 500ml 19:40 Drug: Rocephin - (cefTRIAXone) 1 grams Route: IVPB; Infused Over: 30 mins; Site: left sm5 antecubital; 22:38 Follow up: Response: No adverse reaction; IV Status: Completed infusion; IV Intake: 50mlmk 20:27 Drug: NS 0.9% 500 ml Route: IV; Rate: 100 ml/hr; Site: right forearm; mk Intake: 22:38 IV: 50ml; Total: 50ml. mk 22:39 IV: 500ml; Total: 550ml. Outcome: 20:09 Decision to Hospitalize by Provider. cp 22:27 Admitted to Med/surg mk 22:27 Condition: stable 22:27 Instructed on the need for admit. 22:45 Patient left the ED. NIH Stroke Scale - NIH Stroke Score Date: 08/10/2021 Time: 14:36 Total Score = 1 1a. Level of Consciousness (LOC) - 0(Alert) 1b. Level of Consciousness (LOC) (Month \T\ Age) - 0(Both) 1c. LOC Commands (Open \T\ Closes Eyes/Head Of Marketing Analytics) - 0(Both) 2. Best Gaze (Lateral Gaze Paresis) - 0(Normal) 3. Visual Field Loss - 0(No visual loss) 4. Facial Palsy - 1(Minor Paralysis) 5a. Left Arm: Motor (10-second hold) - 0(No drift) 5b. Right Arm: Motor (10-second hold) - 0(No drift) 6a. Left Leg: Motor (5-second hold - always test supine) - 0(No drift) 6b. Right Leg: Motor (5-second hold - always test supine) - 0(No drift) 7. Limb Ataxia (finger/nose \T\ heel/melo - test with eyes open) - 0(Absent) 8. Sensory Loss (pinprick arms/legs/face) - 0(Normal) 9. Best Language: Aphasia (description/naming/reading) - 0(No aphasia) 10. Dysarthria (speech clarity - read or repeat words) - 0(Normal) 11. Extinction and Inattention (visual/tactile/auditory/spatial/personal) - 0(No abnormality) Initials: cb5 NIH Stroke Scale - NIH Stroke Score Date: 08/10/2021 Time: 15:40 Total Score = 3 1a. Level of Consciousness (LOC) - 0(Alert) 1b. Level of Consciousness (LOC) (Month \T\ Age) - 0(Both) 1c. LOC Commands (Open \T\ Closes Eyes/Head Of Marketing Analytics) - 0(Both) 2. Best Gaze (Lateral Gaze Paresis) - 0(Normal) 3. Visual Field Loss - 0(No visual loss) 4. Facial Palsy - 1(Minor Paralysis) 5a. Left Arm: Motor (10-second hold) - 0(No drift) 5b. Right Arm: Motor (10-second hold) - 0(No drift) 6a. Left Leg: Motor (5-second hold - always test supine) - 0(No drift) 6b. Right Leg: Motor (5-second hold - always test supine) - 0(No drift) 7. Limb Ataxia (finger/nose \T\ heel/melo - test with eyes open) - 1(Present in one limb) 8. Sensory Loss (pinprick arms/legs/face) - 0(Normal) 9. Best Language: Aphasia (description/naming/reading) - 0(No aphasia) 10. Dysarthria (speech clarity - read or repeat words) - 1(Mild to Moderate) 11. Extinction and Inattention (visual/tactile/auditory/spatial/personal) - 0(No abnormality) Initials: cp Signatures: Dispatcher [employer] EDMS Ruddy West PA PA cp Martinez, Maria [facility] Mirella Cooper 3 Shayna Gould, RN RN ld1 Mini Perdomo, RN RN sm5 Lorraine Gotti, RN RN Frieda March, RN RN cb5 Corrections: (The following items were deleted from the chart) : 22:23 Reassessment: [facility] : 22:23 General: Appears in no apparent distress. Behavior is calm, cooperative, [facility] : 22:23 Pain: [facility] 22: 22:23 Pain: Denies pain. [facility] : 22:23 Neuro: Level of Consciousness is awake, alert, obeys commands, Oriented to person, place, time, situation, Supervisor Customer Services are equal bilaterally Weakness in left in right leg(s) Gait is unsteady, Speech is slurred, Facial droop on right, Pupils are PERRLA, Pupil Size: 3 bilaterally Intact 22: 22:23 Cardiovascular: Capillary refill < 3 seconds Clubbing of nail beds is absent JVD is absent Patient's skin is warm and dry. Pulses are 2+ in right radial artery, right dorsalis pedis artery, left radial artery and left dorsalis pedis artery Rhythm is regular 22: 22:23 Respiratory: Airway is patent Trachea midline Respiratory effort is even, mk unlabored, Respiratory pattern is regular, symmetrical, Breath sounds are clear :: GI: Abdomen is flat, non-distended, mk : : No signs and/or symptoms were reported regarding the genitourinary mk system. : Derm: No signs and/or symptoms reported regarding the dermatologic mk system. : Musculoskeletal: Circulation, motion, and sensation intact. Capillary mk refill < 3 seconds, fingers. toes. Range of motion: intact in all extremities, mk
--- NOTE | 2021-08-10 20:09 | EDPHYS ---
Physician Documentation [facility] Name: Terrance Monroy Age: 75 yrs Sex: Male : 1945 Arrival Date: 08/10/2021 Time: 14:25 Bed 14 Private MD: ED Physician Horacio Fajardo HPI: 08/10 15:34 This 75 yrs old Male presents to ER via EMS with complaints of General Weakness. cp 15:34 The patient's problem is reported as weakness, in the right lower extremity, right side cp facial droop. 15:34 Onset: The symptoms/episode began/occurred 4 day(s) ago. Duration: The episode is cp continuous. reports patient suffered fall from standing while in bathroom this past Friday night. reports she had to assist him back to bed and since patient has been unable to ambulate, unable to use walker to ambulate. Patient reports legs became weak Friday night causing him to fall, but feels like right leg continues to be week, having difficulty holding objects with right hand. Historical: - Allergies: 22:27 No Known Allergies; mk - PMHx: 15:13 Atrial Fib; atrial flutter; MS; Trigeminal nueralgia; ulcerative colitis; Hypertension; cb5 High Cholesterol; TMJ; back surgery; back spasms; Hypothyroidism; - Immunization history:: Adult Immunizations up to date, Client reports receiving the 2nd dose of the Covid vaccine. - Social history:: Smoking status: unknown. ROS: 15:37 Constitutional: Negative for body aches, chills, fever, poor PO intake. cp 15:37 Eyes: Negative for injury, pain, redness, and discharge. cp 15:37 ENT: Negative for drainage from ear(s), ear pain, sore throat, difficulty swallowing, difficulty handling secretions. 15:37 Neck: Negative for pain with movement, pain at rest, stiffness. 15:37 Cardiovascular: Negative for chest pain, edema, palpitations. 15:37 Respiratory: Negative for cough, shortness of breath, wheezing. 15:37 Abdomen/GI: Negative for abdominal pain, nausea, vomiting, and diarrhea. 15:37 Neuro: Positive for weakness, of the right leg, Negative for altered mental status, dizziness, headache. 15:37 All other systems are negative. Exam: 15:40 Constitutional: The patient appears in no acute distress, alert, awake, cp non-diaphoretic, non-toxic, well developed, well nourished. 15:40 Head/Face: Normocephalic, atraumatic. cp 15:40 Eyes: Periorbital structures: appear normal, Pupils: equal, round, and reactive to light and accomodation, Extraocular movements: intact throughout, Conjunctiva: normal, no exudate, no injection, Sclera: no appreciated abnormality, Lids and lashes: appear normal, bilaterally. 15:40 ENT: External ear(s): are unremarkable, Nose: is normal, Mouth: right side lip droop, Posterior pharynx: Airway: no evidence of obstruction, patent. 15:40 Neck: C-spine: vertebral tenderness, is not appreciated, crepitus, is not appreciated, ROM/movement: is normal, is supple, without pain, no range of motions limitations. 15:40 Chest/axilla: Inspection: normal, Palpation: is normal, no crepitus, no tenderness. 15:40 Cardiovascular: Rate: normal, Rhythm: regular, Edema: is not appreciated, JVD: is not appreciated. 15:40 Respiratory: the patient does not display signs of respiratory distress, Respirations: normal, no use of accessory muscles, no retractions, labored breathing, is not present, Breath sounds: are clear throughout, no decreased breath sounds, no stridor, no wheezing. 15:40 Abdomen/GI: Inspection: abdomen appears normal, Palpation: abdomen is soft and non-tender, in all quadrants. 15:40 Back: pain, is absent, ROM is normal. 15:40 Neuro: Orientation: to person, place \\T\\ time. Mentation: is normal, Cerebellar function: Romberg testing is negative, Motor: moves all fours, Sensation: is normal. 16:20 ECG was reviewed by the Attending Physician. cp 16:33 Radiologist reports: no acute findings cp Vital Signs: 14:25 BP 150 / 84; Pulse 74; Resp 16; Temp 98.6; Pulse Ox 98% ; Weight 76.2 kg; Height 6 ft. cb5 4 in. (193.04 cm); Pain 2/10; 14:30 BP 150 / 84; Pulse 74; Resp 16; Temp 98.6; Pulse Ox 100% ; Pain 2/10; cb5 19:30 BP 160 / 93; Pulse 61; Resp 18; Pulse Ox 100% on R/A; mk 20:30 BP 111 / 64; Pulse 57; Resp 18; Pulse Ox 99% on R/A; mk 21:30 BP 124 / 88; Pulse 58; Resp 18; Pulse Ox 98% on R/A; mk 22:30 BP 98 / 68; Pulse 56; Resp 18; Pulse Ox 100% ; mk 14:25 Body Mass Index 20.45 (76.20 kg, 193.04 cm) cb5 NIH Stroke Scale Scores: 14:36 NIHSS Score: 1 cb5 15:40 NIHSS Score: 3 cp Roxanna Coma Score: 19:30 Eye Response: spontaneous(4). Verbal Response: oriented(5). Motor Response: obeys mk commands(6). Total: 15. 20:30 Eye Response: spontaneous(4). Verbal Response: oriented(5). Motor Response: obeys mk commands(6). Total: 15. 21:30 Eye Response: spontaneous(4). Verbal Response: oriented(5). Motor Response: obeys mk commands(6). Total: 15. 22:30 Eye Response: spontaneous(4). Verbal Response: oriented(5). Motor Response: obeys mk commands(6). Total: 15. MDM: 15:27 Patient medically screened. cp 18:45 Data reviewed: vital signs, nurses notes, lab test result(s), EKG, radiologic studies, cp CT scan, plain films. 18:45 Test interpretation: by ED physician or midlevel provider: ECG, plain radiologic cp studies. Counseling: I had a detailed discussion with the patient and/or guardian regarding: the historical points, exam findings, and any diagnostic results supporting the discharge/admit diagnosis, lab results, radiology results. Physician consultation: A Chun RAMOS was called at 18:40, was contacted at 18:40, regarding admission, to the telemetry unit. patient's condition, patient's inability to ambulate with use of walker, neuro deficits, unsteady gait and concern for fall risk if patient is discharged. 08/10 15:29 Order name: Basic Metabolic Panel; Complete Time: 17:21 cp 08/10 17:21 Interpretation: Normal except: GFR 58. cp 08/10 15:29 Order name: CBC with Diff; Complete Time: 17:21 cp 08/10 17:21 Interpretation: Normal except: RBC 4.29; MCV 103.8; BRYCE% 81.6; LYM% 7.5; LYMA 0.6. cp 08/10 15:29 Order name: LFT's; Complete Time: 17:21 cp 08/10 15:29 Order name: Magnesium; Complete Time: 17:21 cp 08/10 15:29 Order name: NT PRO-BNP; Complete Time: 17:21 cp 08/10 15:29 Order name: PT-INR; Complete Time: 17:21 cp 08/10 15:29 Order name: Troponin HS; Complete Time: 17:21 cp 08/10 15:29 Order name: XRAY Chest (1 view); Complete Time: 17:21 cp 08/10 15:29 Order name: Urine Microscopic Only; Complete Time: 19:04 cp 08/10 19:04 Interpretation: Normal except: URBC >50. cp 08/10 15:29 Order name: CT Head Brain wo Cont; Complete Time: 16:31 cp 08/10 15:33 Order name: COVID-19 SARS RT PCR (Document "Date of Onset" if Symptomatic); Complete cp Time: 16:31 08/10 16:37 Order name: MRI Stroke Protocol 08/10 18:18 Order name: Urine Dipstick-Ancillary; Complete Time: 18:37 EDMS 08/10 15:29 Order name: EKG; Complete Time: 15:29 cp 08/10 15:29 Order name: Cardiac monitoring; Complete Time: 15:54 cp 08/10 15:29 Order name: EKG - Nurse/Tech; Complete Time: 16:44 cp 08/10 15:29 Order name: IV Saline Lock; Complete Time: 16:44 cp 08/10 15:29 Order name: Labs collected and sent; Complete Time: 16:44 cp 08/10 15:29 Order name: O2 Per Protocol; Complete Time: 15:54 cp 08/10 15:29 Order name: O2 Sat Monitoring; Complete Time: 15:54 cp 08/10 15:29 Order name: Urine Dipstick-Ancillary (obtain specimen); Complete Time: 18:18 cp 08/10 15:29 Order name: Cath; Complete Time: 20:09 cp 08/10 17:55 Order name: Misc. Order: ambulate patient with walker; Complete Time: 18:41 cp 08/10 21:41 Order name: Regular EDMS EC:20 Rate is 56 beats/min. Rhythm is regular. CA interval is prolonged at 214 msec. QRS cp interval is prolonged at 102 msec. QT interval is normal. Interpreted by me. Reviewed by me. Administered Medications: 16:50 Drug: Ativan (LORazepam) 0.5 mg Route: IVP; Site: left antecubital; ld1 17:31 Drug: NS 0.9% 500 ml Route: IV; Rate: 500 ml/hr; Site: left antecubital; cb5 22:39 Follow up: Response: No adverse reaction; IV Status: Completed infusion; IV Intake: mk 500ml 19:40 Drug: Rocephin - (cefTRIAXone) 1 grams Route: IVPB; Infused Over: 30 mins; Site: left sm5 antecubital; 22:38 Follow up: Response: No adverse reaction; IV Status: Completed infusion; IV Intake: 50mlmk 20:27 Drug: NS 0.9% 500 ml Route: IV; Rate: 100 ml/hr; Site: right forearm; mk Disposition: 08/11 07:45 Co-signature as Attending Physician, Horacio Fajardo MD I agree with the assessment and kdr plan of care. Disposition Summary: 08/10/21 20:09 Hospitalization Ordered Hospitalization Status: Inpatient Admission cp Provider: Jyothi Mccolulm cp Location: Telemetry/MedSurg (Inpatient) cp Condition: Stable cp Problem: new cp Symptoms: are unchanged cp Bed/Room Type: Standard Room Assignment: 207(08/10/21 21:57) Diagnosis - Other abnormalities of gait and mobility cp - UTI/ Urinary tract infection, site not specified cp Forms: - Medication Reconciliation Form cp - SBAR form cp NIH Stroke Scale - NIH Stroke Score Date: 08/10/2021 Time: 14:36 Total Score = 1 1a. Level of Consciousness (LOC) - 0(Alert) 1b. Level of Consciousness (LOC) (Month \\T\\ Age) - 0(Both) 1c. LOC Commands (Open \\T\\ Closes Eyes/Rheumatology Specialist) - 0(Both) 2. Best Gaze (Lateral Gaze Paresis) - 0(Normal) 3. Visual Field Loss - 0(No visual loss) 4. Facial Palsy - 1(Minor Paralysis) 5a. Left Arm: Motor (10-second hold) - 0(No drift) 5b. Right Arm: Motor (10-second hold) - 0(No drift) 6a. Left Leg: Motor (5-second hold - always test supine) - 0(No drift) 6b. Right Leg: Motor (5-second hold - always test supine) - 0(No drift) 7. Limb Ataxia (finger/nose \\T\\ heel/melo - test with eyes open) - 0(Absent) 8. Sensory Loss (pinprick arms/legs/face) - 0(Normal) 9. Best Language: Aphasia (description/naming/reading) - 0(No aphasia) 10. Dysarthria (speech clarity - read or repeat words) - 0(Normal) 11. Extinction and Inattention (visual/tactile/auditory/spatial/personal) - 0(No abnormality) Initials: cb5 NIH Stroke Scale - NIH Stroke Score Date: 08/10/2021 Time: 15:40 Total Score = 3 1a. Level of Consciousness (LOC) - 0(Alert) 1b. Level of Consciousness (LOC) (Month \\T\\ Age) - 0(Both) 1c. LOC Commands (Open \\T\\ Closes Eyes/Rheumatology Specialist) - 0(Both) 2. Best Gaze (Lateral Gaze Paresis) - 0(Normal) 3. Visual Field Loss - 0(No visual loss) 4. Facial Palsy - 1(Minor Paralysis) 5a. Left Arm: Motor (10-second hold) - 0(No drift) 5b. Right Arm: Motor (10-second hold) - 0(No drift) 6a. Left Leg: Motor (5-second hold - always test supine) - 0(No drift) 6b. Right Leg: Motor (5-second hold - always test supine) - 0(No drift) 7. Limb Ataxia (finger/nose \\T\\ heel/melo - test with eyes open) - 1(Present in one limb) 8. Sensory Loss (pinprick arms/legs/face) - 0(Normal) 9. Best Language: Aphasia (description/naming/reading) - 0(No aphasia) 10. Dysarthria (speech clarity - read or repeat words) - 1(Mild to Moderate) 11. Extinction and Inattention (visual/tactile/auditory/spatial/personal) - 0(No abnormality) Initials: cp Signatures: Dispatcher [employer] EDVicky Mcmillan RN RN Horacio Carvalho MD MD kdr Page, Corey, PA PA cp Dibbern, Lauren RN RN ld1 Mini Perdomo, RN RN sm5 Lorraine Gotti, RN Frieda Daly, RN RN cb5 Corrections: (The following items were deleted from the chart) 08/10 21:57 20:09 patrick payton
[2021-08-10] MEDS ORDERED: ONDANSETRON 4 MG/2 ML VIAL IV PRN (21:38)
[2021-08-10] MEDS ORDERED: ACETAMINOPHEN 500 MG TAB PO PRN (21:38)
[2021-08-11] MEDS: NA CHLORIDE 0.9% 1,000 ML IV SCH ×3 (00:33→09:48)
[2021-08-11 05:52] LABS: Lymphocytes % 16.1 % (15.3-44.8); MPV 8.5 fL (7.6-11.3); RBC Red Blood Cell Count 3.85 M/uL (4.33-5.43)
[2021-08-11 06:05] LABS: Potassium 4.1 mmol/L (3.5-5.1)
[2021-08-11] MEDS: CEFTRIAXONE 1,000 MG in NA CHLORIDE 0.9% 50 ML IVPB SCH ×2 (08:15→21:32)
[2021-08-11] MEDS ORDERED: INFLUENZA VACCINE (for 6+ mo) 0.5 ML DOSE IMVAC ONE (12:00)
[2021-08-11] MEDS ORDERED: ALFUZOSIN HCL 10 MG PO SCH (12:00)
[2021-08-11] MEDS: AMIODARONE HCL 100 MG PO SCH (12:00)
[2021-08-11] MEDS: AMANTADINE 100 MG CAP PO SCH (12:52)
[2021-08-11] MEDS ORDERED: MAGNESIUM HYDROXIDE 8% 30 ML PO ONE (13:00)
[2021-08-11] MEDS: GABAPENTIN 300 MG CAP PO SCH ×2 (15:18→21:31)
--- NOTE | 2021-08-11 16:46 | HP ---
Date of Admission: 08/11/2021 Chief Complaint: Feeling weak. History Of Present Illness: This is a 75-year-old male patient, who was brought into office on 08/06/2021 with concerns about urinary tract infection. Patient was noted to have cloudy urine and foul smelling urine with strong odor. His urinalysis done at office was abnormal indicating urinary tract infection. Urine culture was ordered, and he was started on antibiotic, Bactrim DS 1 tablet 2 times a day for 1 week. 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 Since that time, he has been having significant difficulty with generalized weakness to the extent that he has not been able to ambulate, and he has not gotten out of bed except few times. actually helped him to get out of the bed by putting him in the chair with the wheels on, and he was taken to the bathroom in the chair. He says he has not had a bowel movement in last 3 or 4 days. Denies any fever, chills, nausea, vomiting. Couple of days ago, called office and at that time, she was advised to bring patient to the emergency room, but patient did not come to the ER until yesterday evening and after he was evaluated, he was admitted to the hospital. Patient was noted to have right-sided weakness with some slurred speech. He denies any trouble swallowing. No trouble with his eye sights. Allergies: NO KNOWN ALLERGIES. Medications: List reviewed. Review of Systems: CHAR FILTER OPERATOR: As mentioned above. All other systems reviewed and negative. Past Medical History: Significant for multiple sclerosis, trigeminal neuralgia for which he had ablation done 4 different times and this is on the right side. Allergic rhinitis, hypothyroidism, impaired fasting glucose hypertension, hyperlipidemia, coronary artery disease, chronic atrial fibrillation, gastroesophageal reflux disease, ulcerative colitis, diverticulosis, benign prostatic hypertrophy, and chronic kidney disease. Past Surgical History: Radiofrequency ablation of trigeminal neuralgia done 4 different times between 2016 and past year. Tonsillectomy, coronary artery stent placement July 13, 2020, and had ablation for atrial fibrillation in 2008 and 2010. He also had back surgery. Family History: Father , had [place]. Mother , had diabetes, heart disease. Sister, arthritis. Social History: Prior history of smoking, not at present time. Use of alcohol, rarely glass of wine. Physical Examination: Vital Signs: This morning, temperature 97.7, pulse 73, respiratory rate 16, blood pressure 145/79, oxygen saturation 98%, and this was on room air. Height 6 feet 4 inches, weight 168 pounds. General: Awake, alert, oriented, not in distress. HEENT: Head atraumatic, normocephalic. Conjunctivae nonerythematous. Sclerae white. Mouth, no thrush or edema noted. Ears/Nose, no mass, lesion, discharge noted. Neck: Supple. No JVD, lymph nodes, bruit, thyromegaly noted. Lungs: Bilateral good equal air entry. Clear to auscultation. No rhonchi. No rales. Heart: Normal heart sounds, no murmur or gallop. Abdomen: Soft, bowel sounds normal. No guarding, rigidity, tenderness, mass, hepatosplenomegaly, distention, or bruit noted. Extremities: No leg edema. No calf tenderness. Skin: No rash, ulcer, cellulitis. Lymphatics: No lymph node enlargement in neck, supraclavicular, infraclavicular region. Chest: Unremarkable. External Genitalia: Deferred. Rectal: Deferred. CHAR FILTER OPERATOR: Patient's speech appears slightly slurred, and he has some flattening of the right nasolabial fold and right corner of the mouth does not open up as much as the left side. His power in right upper extremity is 4+/5, right lower extremity is 4/5, and left upper and left lower extremity power is 5/5. His [id number] test on the right upper extremity is abnormal, left side is normal. Gait is not tested. Laboratory Data: Yesterday, white count 7.7, hemoglobin 15, platelets 274. Today, white count 6.1, hemoglobin 13.2, platelets 235. Yesterday, sodium 136, potassium 4.7, chloride 103, bicarb 27, BUN 18, creatinine 1.23, glucose 103. Liver function tests unremarkable. Troponin high sensitive 10.6. This morning, sodium 139, potassium 4.1, chloride 108, bicarb 26, BUN 17, creatinine 1.03, glucose 100. Urinalysis, negative for nitrite, negative for esterase, rbc's more than 50, wbc's less than 5, bacteria less than 20, protein 1+. Urine culture, which was collected on outpatient on 08/06/2021. Final result is still pending. I called [facility] and preliminary report that it is growing coagulase-negative staph. Definite identification and sensitivity result is still pending as of this morning. CAT scan of the brain, no acute intracranial changes. Chest x-ray, no acute cardiopulmonary changes. Impression: 1. Stroke with right hemiparesis. 2. Multiple sclerosis. 3. Trigeminal neuralgia. 4. Hypothyroidism. 5. Impaired fasting glucose. 6. Allergic rhinitis. 7. Hypertension. 8. Hyperlipidemia. 9. Coronary artery disease. 10. Chronic atrial fibrillation. 11. Chronic anticoagulation for diverticulosis. 12. Gastroesophageal reflux disease. 13. Ulcerative colitis. 14. Benign prostatic hypertrophy. Plan: We will go ahead and admit patient to hospital for further evaluation and management of this problem. Patient is appropriate for inpatient and is expected to spend 2 midnights in hospital. Patient will need MRI of the brain. Unfortunately, we will not be able to do it over the weekend, so we will have to wait for that until Friday. Consult Physical Therapy, Occupational Therapy. Fall precaution was ordered. Home medications will be continued per order. We will check his orthostatic vital signs, and we will order echocardiogram and carotid Doppler. Neurology consult. Patient does not have any trouble swallowing. Patient is on chronic anticoagulation therapy, which is Pradaxa, and we will continue that and I will see him tomorrow for followup. Details of plan to communicate with his . RADHA/MODL Voice ID: [id number]
[2021-08-11] MEDS ORDERED: MESALAMINE 400 MG CAPSULE.DR PO SCH (21:00)
[2021-08-11] MEDS: MESALAMINE 400 MG CAPSULE.DR PO SCH (21:29)
[2021-08-11] MEDS: DABIGATRAN 150 MG CAP PO SCH (21:29)
[2021-08-11] MEDS: ROSUVASTATIN 10 MG TAB PO SCH (21:29)
[2021-08-11] MEDS: OXcarbazepine 150 MG TAB PO SCH (21:30)
[2021-08-11] MEDS: MODAFINIL 200 MG PO SCH (21:33)
[2021-08-12] MEDS: PANTOPRAZOLE 40MG TABLET PO SCH (05:46)
[2021-08-12] MEDS: LEVOTHYROXINE SOD 0.1 MG TAB PO SCH (05:48)
[2021-08-12] MEDS: LEVOTHYROXINE SOD 0.075 MG TAB PO SCH (05:48)
[2021-08-12 07:26] LABS: Thyroid Stimulating Hormone 1.27 uIU/mL (0.360-3.740)
[2021-08-12] MEDS ORDERED: AMLODIPINE 5 MG TAB PO ONE (07:44)
[2021-08-12] MEDS: AMIODARONE HCL 100 MG PO SCH (08:41)
[2021-08-12] MEDS: DIGOXIN 0.125 MG TABLET PO SCH (08:43)
[2021-08-12] MEDS: OXcarbazepine 150 MG TAB PO SCH ×2 (08:43→21:00)
[2021-08-12] MEDS: MESALAMINE 400 MG CAPSULE.DR PO SCH ×2 (08:44→21:00)
[2021-08-12] MEDS: DABIGATRAN 150 MG CAP PO SCH ×2 (08:45→21:00)
[2021-08-12] MEDS: GABAPENTIN 300 MG CAP PO SCH ×3 (08:46→21:00)
[2021-08-12] MEDS: DULOXETINE 20 MG CAP PO SCH (08:46)
[2021-08-12] MEDS: AMANTADINE 100 MG CAP PO SCH ×2 (08:46→12:45)
[2021-08-12] MEDS: CEFTRIAXONE 1,000 MG in NA CHLORIDE 0.9% 50 ML IVPB SCH ×2 (08:47→21:00)
[2021-08-12] MEDS: LATANOPROST 0.005% 2.5ML OPTH OPTH SCH (08:47)
[2021-08-12] MEDS: MODAFINIL 200 MG PO SCH ×2 (08:48→21:00)
[2021-08-12] MEDS ORDERED: ROSUVASTATIN 10 MG TAB PO SCH (09:00)
--- NOTE | 2021-08-12 11:31 | RAD REPORT ---
EXAM DESCRIPTION: - CP - 08/11/2021 10:29 pm CLINICAL HISTORY: stroke Headache, drowsiness, CVA symptomology COMPARISON: No comparisons TECHNIQUE: Real-time sonographic evaluation of both carotid systems was performed. Doppler interroga tion was performed with waveform tracing bilaterally. FINDINGS: Normal high resistance waveforms are noted in both external carotid arteries. The common c arotid arteries and internal carotid arteries show normal low resistance waveforms. Moderate size soft plaque is seen involving the proximal left internal carotid artery. Based on NASCE T criteria stenosis of approximately 50% is suspected. Peak systolic and end diastolic velocity value s and the ICA/CCA ratios are in the non-hemodynamically significant range. Antegrade flow seen in both vertebral arteries. IMPRESSION: Moderate-size soft plaque proximal left internal carotid artery. Based on NASCET criteria, 50% stenosis proximal left internal carotid artery is suspected.
--- NOTE | 2021-08-12 13:56 | PN ---
Date of Progress Note: 08/12/2021 Subjective: The patient was seen this morning for followup. He was lying in bed, not in distress. No new complaints or problems reported. His slurred speech that he had some yesterday is better toda y than yesterday. Objective: Vital Signs: Reviewed. This morning, his blood pressure was 200/97, pulse 54, temperatu re 97.7. HEENT: Examination unremarkable. Lungs: Clear to auscultation. Heart: Sounds normal. Abdomen: Soft. Bowel sounds normal. No guarding, rigidity, tenderness, distention. Extremities: No leg edema. LOG SCALER: Right-sided hemiparesis remains unchanged. Right nasolabial fold flattening which was noted ye sterday still present, but it is better today than yesterday. Impression: 1.Stroke. 2.Hypertension. 3.Orthostatic hypotension. 4.Atrial fibrillation. 5.Chronic anticoagulation therapy. 6.Coronary artery disease. 7.Hyperlipidemia. 8.Multiple sclerosis. Plan: The patient's blood pressure will be monitored. One dose of amlodipine 5 mg p.o. was given th morning, and I have ordered amlodipine 5 mg p.o. 2 times a day to be given. Hold if systolic bloo d pressure is less than 130. By tomorrow, we will see how his orthostatic blood pressure changes are as we have discontinued his alfuzosin and depending on how his orthostatic changes are tomorrow, we will consider adding midodrine 2.5 mg 2 times a day. The patient wakes up around 7 in the morning an d goes to bed at around 6 p.m. So with that in mind, I have instructed the patient that if we start midodrine, it will be 2.5 mg 2 times a day, first dose to be taken around 6 a.m. and second dose to b e taken around noontime. The patient sees Dr. Deleon as his handicapped teacher, who informed him in the past that for his orthostatic hypotension he wanted the patient to take midodrine 5 mg on a p.r.n. basis. Obviously, that situation has not worked out for him, so we will have to come up with a different t reatment plan. Without even using midodrine, his systolic blood pressure goes up to 190-200 range. On the other hand, he has significant orthostatic changes, so we will have to find out if he can come up with a balance between antihypertensive medication and using midodrine. We will have Chantale reeves continue to work with the patient. Carotid Doppler was done today, results pending. Tomorrow, we will have cortisol stimulation test, echocardiogram, MRI of brain, and I have ordered B12 and fol ic acid level to be checked tomorrow. His LDL today was 54, total cholesterol 126, TSH 1.27. I will continue rosuvastatin 20 mg daily as per order. I will see him tomorrow for followup. RADHA/MODL Voice ID: [id number] Report ID: [id number]
[2021-08-12] MEDS: AMLODIPINE 5 MG TAB PO SCH (21:00)
[2021-08-12] MEDS: ROSUVASTATIN 10 MG TAB PO SCH (21:00)
[2021-08-13] MEDS: LEVOTHYROXINE SOD 0.1 MG TAB PO SCH (06:30)
[2021-08-13] MEDS: PANTOPRAZOLE 40MG TABLET PO SCH (06:30)
[2021-08-13] MEDS: LEVOTHYROXINE SOD 0.075 MG TAB PO SCH (06:30)
[2021-08-13 07:04] LABS: Folic Acid, (Folate) 7.5 ng/mL (3.1-17.5)
[2021-08-13] MEDS ORDERED: COSYNTROPIN 0.25 MG VIAL IV SCH (08:00)
[2021-08-13] MEDS: MODAFINIL 200 MG PO SCH ×2 (08:17→21:00)
[2021-08-13] MEDS: DULOXETINE 20 MG CAP PO SCH (08:17)
[2021-08-13] MEDS: AMIODARONE HCL 100 MG PO SCH (08:17)
[2021-08-13] MEDS: DIGOXIN 0.125 MG TABLET PO SCH (08:17)
[2021-08-13] MEDS: MESALAMINE 400 MG CAPSULE.DR PO SCH ×2 (08:17→21:00)
[2021-08-13] MEDS: LATANOPROST 0.005% 2.5ML OPTH OPTH SCH (08:17)
[2021-08-13] MEDS: GABAPENTIN 300 MG CAP PO SCH ×3 (08:17→21:38)
[2021-08-13] MEDS: AMANTADINE 100 MG CAP PO SCH (08:18)
[2021-08-13] MEDS: VITAMIN D 5,000 UNIT CAP PO SCH (08:18)
[2021-08-13] MEDS: OXcarbazepine 150 MG TAB PO SCH ×2 (08:18→21:36)
[2021-08-13] MEDS: AMLODIPINE 5 MG TAB PO SCH ×2 (08:18→21:37)
[2021-08-13] MEDS: DABIGATRAN 150 MG CAP PO SCH ×2 (08:18→21:36)
[2021-08-13] MEDS ORDERED: ALPRAZOLAM 0.25 MG TABLET PO ONE (10:10)
[2021-08-13] MEDS: CEFTRIAXONE 1,000 MG in NA CHLORIDE 0.9% 50 ML IVPB SCH (10:11)
[2021-08-13] MEDS ORDERED: BISACODYL 10 MG RECTAL SUPP PR ONE (10:21)
--- NOTE | 2021-08-13 11:30 | PN ---
Date of Progress Note: 08/13/2021 Subjective: The patient was seen this morning for followup. No new complaints or problems reported by the patient. Lying in bed, not in distress. He has not ambulated as Physical Therapy did not wor k with him yesterday. The patient received milk of magnesia day before yesterday. He has not had a bowel movement since he has been in the hospital and probably few days prior to the hospital. Denies any abdominal pain. No rectal discomfort. No nausea, no vomiting. Objective: Vital Signs: Reviewed. HEENT: Unremarkable. Lungs: Clear to auscultation. Heart: Sounds normal. Abdomen: Soft. Bowel sounds normal. No guarding, rigidity, tenderness, or distention. Extremities: No leg edema. Neuro: Unchanged from yesterday. Laboratory Data: Carotid Doppler shows moderate-sized soft plaque in the proximal left internal tolentino tid artery resulting in approximately 50% stenosis. Impression: 1.Stroke. 2.Paroxysmal atrial fibrillation. 3.Chronic anticoagulation therapy. 4.Coronary artery disease. 5.Orthostatic hypotension. 6.Constipation. 7.Hypertension. Plan: We will go ahead and use Dulcolax rectal suppository after he gets his MRI done today. MRI of the brain will be done today, we will follow up on the results. Echocardiogram also will be done to day. I have advised Physical Therapy to work with the patient today and depending on MRI results and the patient's ability to ambulate, we will make decision regarding discharge. Details were discussed with the patient. RADHA/MODL Voice ID: [id number] Report ID: [id number]
--- NOTE | 2021-08-13 11:46 | RAD REPORT ---
EXAM DESCRIPTION: MRI - MRA Head Wo Cont - 08/13/2021 11:40 am CLINICAL HISTORY: WEAKNESS CVA COMPARISON: Head Brain Wo Cont dated 08/10/2021 FINDINGS: 3D noncontrast [id number] MR angiography of the [place] was performed. No aneurysm, flow-limiting stenosis or vascular malformation is seen. Forward flow seen in codominant vertebral arteries. Question polyp in the left posterior nasopharynx. IMPRESSION: No significant flow abnormality of the [place] is identified.
--- NOTE | 2021-08-13 11:58 | RAD REPORT ---
EXAM DESCRIPTION: MRI - Brain W/Wo Cont - 08/13/2021 11:49 am CLINICAL HISTORY: WEAKNESS COMPARISON: No comparisons TECHNIQUE: Sagittal T1-weighted images were obtained along with PD/heavily T2-weighted and T2-FLAIR images. Axial DWI and ADC mapping sequences were also obtained along with coronal heavily T2-weighted images were obtained. Contrast was administered. FINDINGS: Acute infarct in the left basal ganglia/ taylor radiata. Moderate chronic small vessel isc hemic changes. Remote right basal ganglia and taylor radiata infarcts. There is no edema or shift of midline structures. No extra-axial fluid collections. Signal voids are seen as a normal finding in th e major intracranial vessels. Polypoid structure in the left posterior nasal passage/ nasopharynx. IMPRESSION: Acute left basal ganglia/taylor radiata infarct. Moderate chronic small vessel ischemic changes. No abnormal enhancement.
--- NOTE | 2021-08-13 12:00 | RAD REPORT ---
EXAM DESCRIPTION: MRI - MRA Neck W/Wo Cont - 08/13/2021 11:48 am CLINICAL HISTORY: WEAKNESS COMPARISON: No comparisons FINDINGS: Contrast enhance 2D [id number] MR angiography of the neck vessels was performed. No flow limiting stenosis within either carotid systems or vertebral arteries. The vertebral arteries are codominant. No dissection is identified. IMPRESSION: No flow limiting arterial stenosis in the neck.
[2021-08-13] MEDS: ROSUVASTATIN 10 MG TAB PO SCH (21:00)
[2021-08-14] MEDS: LEVOTHYROXINE SOD 0.1 MG TAB PO SCH (05:33)
[2021-08-14] MEDS: MIDODRINE HCL 5 MG TABLET PO SCH ×2 (05:33→12:08)
[2021-08-14] MEDS: PANTOPRAZOLE 40MG TABLET PO SCH (05:33)
[2021-08-14] MEDS: LEVOTHYROXINE SOD 0.075 MG TAB PO SCH (05:33)
[2021-08-14 07:05] LABS: Absolute Lymphocytes (CBC) 1.1 K/uL (0.7-4.9); Hematocrit 46.8 % (39.6-49.0); Lymphocytes % 9.9 % (15.3-44.8); MPV 8.3 fL (7.6-11.3); RBC Red Blood Cell Count 4.53 M/uL (4.33-5.43)
[2021-08-14 07:17] LABS: Magnesium 2.3 mg/dL (1.8-2.4); Potassium 4.1 mmol/L (3.5-5.1)
--- NOTE | 2021-08-14 08:32 | ECHO ---
HEIGHT: 6 ft 4 in WEIGHT: 168 lb 0 oz DATE OF STUDY: 08/13/[address]: Stiven Mccollum MD 2-DIMENSIONAL: YES M.MODE: YES DOPPLER: YES COLOR FLOW: YES TDS: PORTABLE: DEFINITY: BUBBLE STUDY: DIAGNOSIS: STROKE CARDIAC HISTORY: CATHERIZATION: SURGERY: PROSTHETIC VALVE: PACEMAKER: MEASUREMENTS (cm) DIASTOLIC (NORMALS) SYSTOLIC (NORMALS) IVSd 1.0 (0.6-1.2) LA Diam (1.9-4.0) LVEF 60-65% LVIDd 3.8 (3.5-5.7) LVIDs 2.1 (2.0-3.5) %FS 45% LVPWd 1.0 (0.6-1.2) Ao Diam 3.6 (2.0-3.7) 2 DIMENSIONAL ASSESSMENT: RIGHT ATRIUM: NORMAL LEFT ATRIUM: NORMAL RIGHT VENTRICLE: NORMAL LEFT VENTRICLE: NORMAL TRICUSPID VALVE: MILD TRICUSPID REGURGITATION MITRAL VALVE: NORMAL PULMONIC VALVE: NORMAL AORTIC VALVE: NORMAL PERICARDIAL EFFUSION: NONE AORTIC ROOT: NORMAL LEFT VENTRICULAR WALL MOTION: NORMAL DOPPLER/COLOR FLOW: SEE BELOW COMMENTS: NORMAL LEFT VENTRICULAR EJECTION FRACTION 60-65%. NORMAL WALL MOTION. MILD TRICUSPID REGURGITATION. MILD TRICUSPID REGURGITATION. TECHNOLOGIST: PRINCESS BOX
[2021-08-14] MEDS: MODAFINIL 200 MG PO SCH ×2 (09:00→20:37)
[2021-08-14] MEDS: AMIODARONE HCL 100 MG PO SCH (09:00)
[2021-08-14] MEDS: LATANOPROST 0.005% 2.5ML OPTH OPTH SCH (09:00)
[2021-08-14] MEDS: MESALAMINE 400 MG CAPSULE.DR PO SCH ×2 (09:00→20:36)
[2021-08-14] MEDS: OXcarbazepine 150 MG TAB PO SCH ×2 (09:46→20:35)
[2021-08-14] MEDS: GABAPENTIN 300 MG CAP PO SCH ×3 (09:46→20:34)
[2021-08-14] MEDS: AMLODIPINE 5 MG TAB PO SCH ×2 (09:46→20:34)
[2021-08-14] MEDS: HYDROCORTISONE ACETATE 25MG SUPP PR SCH ×2 (09:47→20:36)
[2021-08-14] MEDS: VITAMIN D 5,000 UNIT CAP PO SCH (09:47)
[2021-08-14] MEDS: DULOXETINE 20 MG CAP PO SCH (09:47)
[2021-08-14] MEDS: DIGOXIN 0.125 MG TABLET PO SCH (09:47)
[2021-08-14] MEDS: AMANTADINE 100 MG CAP PO SCH (12:08)
[2021-08-14] MEDS: ROSUVASTATIN 10 MG TAB PO SCH (20:36)
--- NOTE | 2021-08-14 21:51 | CON ---
Reason For Consultation: Consultation called because of stroke. History Of Present Illness: Mr. Valencia is a 75-year-old right-handed patient who repor ts a history of multiple sclerosis, diagnosed in about 4 years ago and seen by Dr. Noe Bain at [facility] in [place], for which he is on a course modifying medication, Ocrevus in fusions for about 3 years. He said he last received steroids for multiple sclerosis about 3 years ag o. He notes doing fairly well until this weekend when he woke up and noted generalized weakness, but much more weakness noted in the right upper and lower extremity where he could not stand and ambulat e. He does say that he seems to have had something very similar previously and at that time, this wa s about a year ago, was diagnosed with a urinary tract infection and antibiotics seemed to help him t here. He thought this event was also due to urinary tract infection and he did not immediately seek medical attention. He contacted his primary care physician, Dr. Mccollum, on Friday and was treated with Bactrim, but did not improve and came to [facility] when he was admitted on the Jul. His head CT scan at that time identified no acute ischemic or hemorrhagic change, however, sma ll low-density area was noted in the deep white matter in the right frontal lobe and that was unchang ed and thought to be an old infarct. Furthermore, there was moderate small-vessel ischemic disease identified. It should be noted that patient's right-sided weakness could not be explained by that finding. Subsequent brain MRI done o n yesterday that is Friday identified an acute left basal ganglia taylor radiata infarct with moderat e chronic small vessel ischemic disease. This acute finding is more likely the reason for the patien t's right-sided weakness. His echocardiogram earlier today showed ejection fraction 60% to 65% with mild tricuspid regurgitation. MRA of his [place] showed no significant abnormalities. [place] tid artery ultrasound identified moderate soft plaque in the left internal carotid artery with approx imately 50% stenosis. He is treated with Pradaxa 150 mg twice daily along with Norvasc for blood pre ssure control, modafinil for his multiple sclerosis, fatigue, intolerance, Crestor for dyslipidemia, Trileptal for right trigeminal neuralgia, Synthroid for his hypothyroidism, and he is receiving stero ids. He is on high-dose vitamin D 5000 units daily. Since his hospitalization, the patient notes so me slight improvement in the right upper and lower extremity weakness. He denies right facial weakne ss. He has persistent incoordination in the upper and lower extremities which is chronic and related to his multiple sclerosis. Past Medical History: As noted included hypertension, right trigeminal neuralgia for which he receiv es injections from pain management of the right trigeminal nerve, dyslipidemia, coronary artery disea se, atrial fibrillation, GE reflux, diverticulosis, and prostatic hypertrophy, chronic renal insuffic iency. Surgical History: Radiofrequency ablation of the right trigeminal nerve from chart review, noted to be over 4 times since 2017. He has a tonsillectomy, coronary artery stent in 2019, and atri al fibrillation ablation in 2008 and 2010, and back surgery. Family History: Positive for diabetes mellitus, heart disease in mother and myocardial infarction in father. Arthritis in sister. Social History: Denies any recent alcohol, tobacco, or IV drug use. Review of Systems: Reports intermittent dizziness, weakness, incoordination, mild reflux symptoms, otherwise, no recent chills or fevers and does have some difficulty with ambulation but prior to the onset of this event, was ambulating short distances without an assistive device but for longer distances, would use a whee lchair and may use a walker as well. Physical Examination: Vital Signs: Blood pressure while lying 128/84, pulse of 81. After standing, blood pressure 81/57, pulse 83, he was symptomatic with lightheadedness. Respiratory rate 16, temperature 97.8, oxygen sat uration 99% on room air. Weight 168 pounds, height 6 feet 4 inches, BMI 20.4. General: Mr. Valencia is resting in bed. He appears mildly disheveled. HEENT: He is, otherwise, normocephalic, atraumatic. His sclerae are anicteric. Oropharynx is moist. Neck: Supple. Chest: No significant abnormalities. Extremities: Mild bruising. No significant edema noted. Neurologic: Cranial nerves showed no focal deficits on 2 through 12, except for difficulty with labia l, lingual, and guttural sounds. He has motor examination in the right upper and lower extremity 4 t o 5, left 5- out of 5 proximally and distally. Sensory exam decreased to light touch, temperature, a nd stocking-glove fashion. Reflexes are brisk in the upper and lower extremities with Mcgowan's posi tive bilaterally and crossed adductors positive bilaterally in the lower extremities. In terms of ga it, an attempt was made for physical therapy, but the patient refused and shouted at the staff. He b ecame angry, waving his arms around, did not want to be disturbed, wanted to wait for therapy again i n the morning. Laboratory Studies: Complete blood count with differential shows white blood cell count 11.0 with 79 .5, neutrophils, hemoglobin, hematocrit, normal coagulation panel. INR 1.19. Chemistries remarkable for slightly elevated BUN of 22, glucose 118. Calcium and magnesium are normal. His LDL cholestero l 54, HDL cholesterol 63, B12 321, TSH 1.27. Urinalysis shows greater than 50 red blood cells, 2+ bl ood, trace ketones, 1+ total protein. Digoxin level is 0.1. COVID-19 test is negative. His chest x -ray shows no acute abnormalities. Assessment: 1.Mr. Valencia is a 75-year-old patient with multiple sclerosis, prior stroke, and more acute stro ke, though has history of atrial fibrillation, hypertension, dyslipidemia as risk factors for his str trisha. He is on Pradaxa for stroke risk reduction. 2.He has comorbid conditions that are managed by Dr. Mccollum. 3.He may be a candidate for acute inpatient rehabilitation if he cooperates to have an assessment do ne that can be sent to insurance to see if they will approve his therapy. If not inpatient, he will benefit from home health physical therapy and when better can go to outpatient physical therapy. He is followed by Dr. Noe Bain at the [facility] in [place]. He will continue to fo llow up. He also has right trigeminal neuralgia and follow up in [place]. The patient will be followed in the hospital as needed. MARCO/FABIOLA Voice ID: [id number] Report ID: [id number]
--- NOTE | 2021-08-14 23:02 | PN ---
Date of Progress Note: 08/14/2021 Subjective: The patient was seen this morning for followup. No new complaints or problems reported by him except he had multiple diarrhea type of bowel movements. The patient did not have any bowel m ovement for almost a week before he came into the hospital and for few days after his admission to [facility] until yesterday he received Dulcolax rectal suppository and after that he had a bowel move ment and since that time he has had diarrhea type of stool to the extent that every time when he trie s to stand up the patient says that he ends up having loose bowel movement that he cannot control. Y esterday, after MRI, he was feeling very weak, tired, sleepy because he had received alprazolam prior to MRI per request because of his claustrophobia and he was able to get MRI done yesterday and resul ts of MRI was discussed with him yesterday and his as well. Objective: Vital Signs: Reviewed. HEENT: Unremarkable. Lungs: Clear to auscultation. Heart: Heart sounds normal. Abdomen: Soft, bowel sounds normal. No guarding, rigidity, tenderness, or distention. Extremities: No leg edema. GLOBAL EXPANSION SALES DIRECTOR: Right-sided hemiparesis with slight flattening of the right nasolabial fold. All these finding s are unchanged for last 2 days. Laboratory Data: Echocardiogram shows normal ejection fraction, unremarkable echocardiogram. Impression: 1.Stroke. 2.Paroxysmal atrial fibrillation. 3.Hypertension. 4.Orthostatic hypotension. 5.Guaiac-positive stool. Plan: The patient's stool was reported to be dark in color and nurse was concerned about possibility of bleeding, so stool was sent for occult blood, which came back positive. This morning, when I saw the patient, upon further questioning, he does report having some rectal discomfort at the time of b owel movement, so I suspect that he may have some proctitis type of problem likely due to constipatio n and this is probably likely reason for his guaiac-positive stool. We will hold his Pradaxa today a nd restart it tomorrow. Meanwhile, we will start him on Anusol HC rectal suppository twice a day. P hysical therapy to continue to work with the patient. We will continue amlodipine and midodrine per order and I will see him tomorrow for followup. RADHA/MODL Voice ID: [id number] Report ID: [id number]
[2021-08-15] MEDS: MIDODRINE HCL 5 MG TABLET PO SCH ×3 (05:36→11:58)
[2021-08-15] MEDS: PANTOPRAZOLE 40MG TABLET PO SCH (05:36)
[2021-08-15] MEDS: LEVOTHYROXINE SOD 0.075 MG TAB PO SCH (05:36)
[2021-08-15] MEDS: LEVOTHYROXINE SOD 0.1 MG TAB PO SCH (05:36)
--- NOTE | 2021-08-15 07:35 | EKG ---
Test Date: 2021-08-10 Test Time: 16:13:15 Tax Intern: MEASUREMENT RESULTS: Intervals: Rate: 56 OH: 214 QRSD: 102 QT: 380 QTc: 366 [place]: P: 90 OH: 214 QRS: -42 T: 85 INTERPRETIVE STATEMENTS: Sinus bradycardia with 1st degree AV block Left axis deviation Incomplete right bundle branch block Septal infarct, age undetermined Abnormal ECG Compared to ECG 08/10/2021 16:12:41 First degree AV block now present Left-axis deviation now present Sinus rhythm no longer present Left anterior fascicular block no longer present Myocardial infarct finding still present Electronically Signed On 08-15-21 07:27:12 BISQUE WARE DIPPER by Gregorio Espinosa
[2021-08-15 08:04] LABS: Absolute Lymphocytes (CBC) 1.1 K/uL (0.7-4.9); Hematocrit 43.6 % (39.6-49.0); Lymphocytes % 10.2 % (15.3-44.8); RBC Red Blood Cell Count 4.24 M/uL (4.33-5.43)
[2021-08-15] MEDS: AMIODARONE HCL 100 MG PO SCH (09:00)
[2021-08-15] MEDS: LATANOPROST 0.005% 2.5ML OPTH OPTH SCH (09:00)
[2021-08-15] MEDS: modafiniL 100 MG TAB PO SCH (09:15)
[2021-08-15] MEDS: VITAMIN D 5,000 UNIT CAP PO SCH (09:16)
[2021-08-15] MEDS: MODAFINIL 200 MG PO SCH ×2 (09:16→21:00)
[2021-08-15] MEDS: AMLODIPINE 5 MG TAB PO SCH ×2 (09:16→21:00)
[2021-08-15] MEDS: DULOXETINE 20 MG CAP PO SCH (09:16)
[2021-08-15] MEDS: MESALAMINE 400 MG CAPSULE.DR PO SCH ×2 (09:16→21:03)
[2021-08-15] MEDS: GABAPENTIN 300 MG CAP PO SCH ×3 (09:16→21:03)
[2021-08-15] MEDS: DABIGATRAN 150 MG CAP PO SCH ×2 (09:17→21:03)
[2021-08-15] MEDS: DIGOXIN 0.125 MG TABLET PO SCH (09:17)
[2021-08-15] MEDS: OXcarbazepine 150 MG TAB PO SCH ×2 (09:17→21:03)
[2021-08-15] MEDS: AMANTADINE 100 MG CAP PO SCH (09:20)
[2021-08-15] MEDS: HYDROCORTISONE ACETATE 25MG SUPP PR SCH ×2 (09:29→21:00)
[2021-08-15] MEDS: ROSUVASTATIN 10 MG TAB PO SCH (21:03)
[2021-08-16] MEDS: LEVOTHYROXINE SOD 0.1 MG TAB PO SCH (05:44)
[2021-08-16] MEDS: LEVOTHYROXINE SOD 0.075 MG TAB PO SCH (05:44)
[2021-08-16] MEDS: MIDODRINE HCL 5 MG TABLET PO SCH ×2 (05:44→12:37)
[2021-08-16] MEDS: PANTOPRAZOLE 40MG TABLET PO SCH (05:44)
--- NOTE | 2021-08-16 06:47 | PN ---
Date of Progress Note: 08/15/2021 Subjective: The patient was seen this morning for followup. He was lying in bed, not in distress. He still has diarrhea and has some pain in the rectum when he has bowel movement and reports that Bonny dami rectal suppository has helped him to some extent. No nausea, vomiting. No abdominal pain. Objective: Vital Signs: Reviewed. HEENT: Examination unremarkable. Lungs: Clear to auscultation. Heart: Sounds normal. Abdomen: Soft. Bowel sounds normal. No guarding, rigidity, tenderness, or distention. Extremities: No leg edema. SEWER PIPE SORTER: Right-sided hemiparesis remains unchanged. Laboratory Data: White count 10.7, hemoglobin 14.7, platelets 280. Sodium 137, potassium 4, chlorid e 105, bicarb 27, BUN 29, creatinine 1.05, glucose 115. Impression: 1.Diarrhea. 2.Generalized weakness. 3.Debility. 4.Stroke with right-sided hemiparesis. 5.Paroxysmal atrial fibrillation. 6.Orthostatic hypotension. Plan: The patient still has significant orthostatic hypotension as noted on vital signs review. We will increase dose of midodrine from 2.5 mg to 5 mg two times a day. We will hold his physical thera py today considering the patient is feeling very weak and says every time he stands up, he ends up miller ving bowel movement and it is liquid stool, so he will not be able to do any physical therapy today. I have ordered Imodium 2 mg one time dose to be given if the patient has more than 3 bowel movements today by noon time. He was encouraged to keep himself well hydrated. We will continue Pradaxa per order and continue Anusol HC rectal suppository 2 times a day. I will see him tomorrow for followup. The patient has out of hospital DNR, and I did have discussion with him regarding Advance Directive , and he informed me that in the event of cardiopulmonary arrest, he does not want any CPR, defibrill ation, or ventilator support, and he would like for us to allow nature and God to take its course and keep him comfortable. DNR order was written in the chart. RADHA/MODL Voice ID: [id number] Report ID: [id number]
[2021-08-16] MEDS: AMANTADINE 100 MG CAP PO SCH (08:14)
[2021-08-16] MEDS: GABAPENTIN 300 MG CAP PO SCH ×3 (08:15→21:40)
[2021-08-16] MEDS: DIGOXIN 0.125 MG TABLET PO SCH (08:16)
[2021-08-16] MEDS: OXcarbazepine 150 MG TAB PO SCH ×2 (08:16→21:35)
[2021-08-16] MEDS: VITAMIN D 5,000 UNIT CAP PO SCH (08:16)
[2021-08-16] MEDS: DABIGATRAN 150 MG CAP PO SCH ×2 (08:17→21:36)
[2021-08-16] MEDS: DULOXETINE 20 MG CAP PO SCH (08:18)
[2021-08-16] MEDS: AMLODIPINE 5 MG TAB PO SCH ×2 (08:18→21:36)
[2021-08-16] MEDS: modafiniL 100 MG TAB PO SCH (08:20)
[2021-08-16] MEDS: LATANOPROST 0.005% 2.5ML OPTH OPTH SCH (08:21)
[2021-08-16] MEDS: MESALAMINE 400 MG CAPSULE.DR PO SCH ×2 (08:22→21:00)
[2021-08-16] MEDS: AMIODARONE HCL 100 MG PO SCH (08:24)
[2021-08-16] MEDS: MODAFINIL 200 MG PO SCH ×2 (08:25→21:00)
[2021-08-16] MEDS: LOPERAMIDE HCL 2 MG CAPSULE PO PRN ×2 (08:31→21:51)
[2021-08-16] MEDS: HYDROCORTISONE ACETATE 25MG SUPP PR SCH ×2 (08:31→21:36)
[2021-08-16] MEDS: FLUDROCORTISONE 0.1 MG TAB PO SCH (11:17)
[2021-08-16] MEDS: ROSUVASTATIN 10 MG TAB PO SCH (21:35)
[2021-08-17] MEDS: PANTOPRAZOLE 40MG TABLET PO SCH (05:48)
[2021-08-17] MEDS: LEVOTHYROXINE SOD 0.1 MG TAB PO SCH (05:48)
[2021-08-17] MEDS: MIDODRINE HCL 5 MG TABLET PO SCH ×2 (05:54→13:59)
[2021-08-17] MEDS: LEVOTHYROXINE SOD 0.075 MG TAB PO SCH (06:30)
[2021-08-17] MEDS: AMLODIPINE 5 MG TAB PO SCH ×2 (09:00→21:10)
[2021-08-17] MEDS: LATANOPROST 0.005% 2.5ML OPTH OPTH SCH (09:00)
[2021-08-17] MEDS: MESALAMINE 400 MG CAPSULE.DR PO SCH ×2 (09:00→21:00)
[2021-08-17] MEDS: VITAMIN D 5,000 UNIT CAP PO SCH (09:00)
[2021-08-17] MEDS: MODAFINIL 200 MG PO SCH ×3 (09:00→21:00)
[2021-08-17] MEDS: AMIODARONE HCL 100 MG PO SCH (09:00)
[2021-08-17] MEDS: DABIGATRAN 150 MG CAP PO SCH ×2 (10:10→21:10)
[2021-08-17] MEDS: HYDROCORTISONE ACETATE 25MG SUPP PR SCH ×2 (10:11→21:10)
[2021-08-17] MEDS: modafiniL 100 MG TAB PO SCH (10:11)
[2021-08-17] MEDS: OXcarbazepine 150 MG TAB PO SCH ×2 (10:13→21:10)
[2021-08-17] MEDS: DIGOXIN 0.125 MG TABLET PO SCH (10:13)
[2021-08-17] MEDS: DULOXETINE 20 MG CAP PO SCH (10:14)
[2021-08-17] MEDS: FLUDROCORTISONE 0.1 MG TAB PO SCH (10:15)
[2021-08-17] MEDS: GABAPENTIN 300 MG CAP PO SCH ×3 (10:16→21:10)
[2021-08-17] MEDS: AMANTADINE 100 MG CAP PO SCH (10:16)
[2021-08-17 15:10] LABS: C.diff Antigen/Toxin Ag pos : Tox pos (NEG : NEG)
[2021-08-17] MEDS ORDERED: NA CHLORIDE 0.9% 1,000 ML IV SCH (17:00)
[2021-08-17] MEDS: VANCOMYCIN ORAL SOLN 250 MG/5 ML OSYR PO SCH ×2 (18:03→21:08)
--- NOTE | 2021-08-17 18:27 | PN ---
Date of Progress Note: 08/17/2021 Subjective: The patient was seen this morning for followup. He was lying in bed. Overall, he feels better today than yesterday. He reports that his diarrhea problem is better than last time. He had a bowel movement early this morning, but after that he did not have any bowel movement, but he does report that he has had multiple episodes where every time he feels like he passes any gas from rectum . He actually has some small amount of stool in the diaper that he is wearing. The patient also inf ormed me that nurse decided not to give him last dose of midodrine at 6 o'clock, and I did talk to rah nurse after seeing patient and confirmed that this morning's midodrine dose was not given by sarina se as she decided to hold it without my permission or without talking to me. Systolic blood pressure was between 140 to 150 range. I have asked charge nurse to communicate with the nursing staff not t o do so without any direct order from me. Objective: HEENT: Examination unremarkable. LUNGS: Clear to auscultation. HEART: Sounds normal. ABDOMEN: Soft. Bowel sounds normal. No guarding, rigidity, tenderness, or distention. Extremities: No leg edema. VEHICLE AND EQUIPMENT CLEANER: Right-sided hemiparesis unchanged. Impression: 1.Stroke with right-sided hemiparesis. 2.Paroxysmal atrial fibrillation. 3.Hypertension. 4.Orthostatic hypotension. 5.Multiple sclerosis. 6.Diarrhea. 7.Colitis. 8.Proctitis. Plan: The patient reports that his burning sensation and burning pain in the rectum is better with t he use of Anusol rectal suppository, which we will continue that. His hypertension is under better c ontrol with amlodipine and we will continue that. For orthostatic hypotension, the patient should co ntinue to use his midodrine 5 mg 2 times a day as per order which is 6 a.m. and noon time and also fl udrocortisone 0.1 mg daily. I have also ordered Imodium for p.r.n. use for diarrhea. Once we are ab le to control his diarrhea and drop in the blood pressure, then he should be able to participate well with the physical therapy, and I believe that he is a very good rehab candidate, but we need to get this 2 problems resolved, which will allow him to participate with the therapy. I have communicated all these details to Social Service also and hopefully by Friday we will try to get him ready for fur ther rehab. If his diarrhea problem continues, I may have to consider using some IV steroids and thi s was discussed with him, but he already tells me that diarrhea is getting better now. Last night, I did call the patient's and discussed all the details as well with her. RADHA/MODL Voice ID: [id number] Report ID: [id number]
--- NOTE | 2021-08-17 18:32 | PN ---
Date of Progress Note: 08/16/2021 Subjective: The patient was seen this morning for followup. He was lying in bed, not in distress, s till continues to have bad diarrhea problem to the extent that he does not have control over it, and when he gets up to do any activity, he ends up losing control over his bowel movement with the diarrh ea stool. Denies any abdominal pain, nausea, or vomiting. Objective: Vital Signs: Reviewed. HEENT: Examination unremarkable. Lungs: Clear to auscultation. Heart: Sounds normal. Abdomen: Soft, bowel sounds normal. No guarding, rigidity, tenderness, or distention. Extremities: No leg edema. Impression: 1.Diarrhea. 2.Atrial fibrillation, paroxysmal. 3.Stroke with right-sided hemiparesis. 4.Orthostatic hypotension. 5.Hypertension. Plan: The patient's blood pressure is well controlled with amlodipine, but he still continues to hav e orthostatic hypotension. We will continue to use his midodrine 5 mg 2 times a day per order, and I have added fludrocortisone. We will see how this combination of medications helps him with his bloo d pressure drop that we seeing with orthostatic hypotension. Unfortunately, because of his diarrhea and/or significant orthostatic drop in the blood pressure he is not able to participate with physical therapy, but once those 2 problems gets under control, he should be able to participate with therapy . I have encouraged him to keep himself well hydrated, and I have ordered Imodium for p.r.n. use for mihir arrington. RADHA/MODL Voice ID: [id number] Report ID: [id number]
[2021-08-17] MEDS: ROSUVASTATIN 10 MG TAB PO SCH (21:09)
[2021-08-18 06:02] LABS: Absolute Lymphocytes (CBC) 1.1 K/uL (0.7-4.9); Hematocrit 38.4 % (39.6-49.0); RBC Red Blood Cell Count 3.71 M/uL (4.33-5.43)
[2021-08-18] MEDS: PANTOPRAZOLE 40MG TABLET PO SCH (06:02)
[2021-08-18] MEDS: LEVOTHYROXINE SOD 0.075 MG TAB PO SCH (06:02)
[2021-08-18] MEDS: LEVOTHYROXINE SOD 0.1 MG TAB PO SCH (06:03)
[2021-08-18] MEDS: MIDODRINE HCL 5 MG TABLET PO SCH ×2 (06:03→12:46)
[2021-08-18] MEDS: VANCOMYCIN ORAL SOLN 250 MG/5 ML OSYR PO SCH ×3 (06:03→17:50)
[2021-08-18 06:05] LABS: BUN Blood Urea Nitrogen 22 mg/dL (7-18); Bicarbonate 30 mmol/L (21-32); Glucose Level 97 mg/dL (74-106); Potassium 3.8 mmol/L (3.5-5.1); Sodium Level 140 mmol/L (136-145)
[2021-08-18] MEDS: MODAFINIL 200 MG PO SCH ×2 (09:00→20:15)
[2021-08-18] MEDS: MESALAMINE 400 MG CAPSULE.DR PO SCH ×2 (09:00→21:00)
[2021-08-18] MEDS: VITAMIN D 5,000 UNIT CAP PO SCH (09:00)
[2021-08-18] MEDS: AMLODIPINE 5 MG TAB PO SCH ×2 (09:00→22:38)
[2021-08-18] MEDS: HYDROCORTISONE ACETATE 25MG SUPP PR SCH ×2 (09:00→21:00)
[2021-08-18] MEDS: LATANOPROST 0.005% 2.5ML OPTH OPTH SCH (09:00)
[2021-08-18] MEDS: FLUDROCORTISONE 0.1 MG TAB PO SCH ×3 (09:00→12:52)
[2021-08-18] MEDS: AMIODARONE HCL 100 MG PO SCH (09:00)
--- NOTE | 2021-08-18 09:48 | PN ---
Date of Progress Note: 08/18/2021 Subjective: The patient was seen this morning for followup. His stool C diff report came back posit michael yesterday, and he was started on oral vancomycin. This morning, he reports that his diarrhea is much better. Last bowel movement he had was well formed stool, and this was around 5:30 p.m. yesterd ay. After that, he has not had any bowel movement. No nausea, no vomiting. Appetite is fair to goo d. Objective: Vital Signs: Reviewed. HEENT: Examination unremarkable. Lungs: Clear to auscultation. Heart: Sounds normal. Abdomen: Soft. Bowel sounds normal. No guarding, rigidity, tenderness, or distention. Extremities: No leg edema. LEAD RELAY TESTER: Right-sided hemiparesis remains unchanged. Laboratory Data: White count 7, hemoglobin 12.9, platelets 260. Sodium 140, potassium 3.8, chloride 107, bicarb 30, BUN 22, creatinine 0.81, glucose 97. Impression: 1.Stroke. 2.Paroxysmal atrial fibrillation. 3.Multiple sclerosis. 4.Clostridium difficile colitis. 5.Anemia, unspecified. 6.Orthostatic hypotension. 7.Hypertension. Plan: We will continue his oral vancomycin per order. I have also ordered support stockings to both lower extremity to be kept on during day time and take it off at night time. I have instructed him today to exercise his both upper and lower extremities prior to getting out of bed. I have reviewed his blood pressure readings, and I will reduce amlodipine dose from 5 mg 2 times a day to 2.5 mg 2 ti mes a day and still with the same holding parameter, which is to hold if systolic blood pressure less than 130. He was started on IV fluid normal saline at 75 cc/hour yesterday for 1 L, which will be o maximino today. He was encouraged to drink about 50 to 60 ounce of water a day, and we will see how his o rthostatic changes are today. We will go ahead and continue midodrine as well as fludrocortisone. I will see him tomorrow for followup. RADHA/MODL Voice ID: [id number] Report ID: [id number]
[2021-08-18] MEDS: modafiniL 100 MG TAB PO SCH (09:56)
[2021-08-18] MEDS: DIGOXIN 0.125 MG TABLET PO SCH (09:57)
[2021-08-18] MEDS: DABIGATRAN 150 MG CAP PO SCH ×2 (09:58→22:45)
[2021-08-18] MEDS: AMANTADINE 100 MG CAP PO SCH (09:59)
[2021-08-18] MEDS: DULOXETINE 20 MG CAP PO SCH (09:59)
[2021-08-18] MEDS: GABAPENTIN 300 MG CAP PO SCH ×3 (09:59→22:36)
[2021-08-18] MEDS: OXcarbazepine 150 MG TAB PO SCH ×2 (10:00→22:38)
[2021-08-18] MEDS: ROSUVASTATIN 10 MG TAB PO SCH (22:36)
[2021-08-19] MEDS: VANCOMYCIN ORAL SOLN 250 MG/5 ML OSYR PO SCH ×4 (00:54→18:41)
[2021-08-19] MEDS: LEVOTHYROXINE SOD 0.075 MG TAB PO SCH (06:19)
[2021-08-19] MEDS: PANTOPRAZOLE 40MG TABLET PO SCH (06:19)
[2021-08-19] MEDS: LEVOTHYROXINE SOD 0.1 MG TAB PO SCH (06:19)
[2021-08-19] MEDS: MIDODRINE HCL 5 MG TABLET PO SCH ×2 (06:20→13:33)
[2021-08-19] MEDS: DIGOXIN 0.125 MG TABLET PO SCH (08:48)
[2021-08-19] MEDS: DABIGATRAN 150 MG CAP PO SCH ×2 (08:48→22:05)
[2021-08-19] MEDS: AMLODIPINE 5 MG TAB PO SCH (08:49)
[2021-08-19] MEDS: OXcarbazepine 150 MG TAB PO SCH ×2 (08:49→22:05)
[2021-08-19] MEDS: MESALAMINE 400 MG CAPSULE.DR PO SCH ×2 (08:49→21:00)
[2021-08-19] MEDS: AMANTADINE 100 MG CAP PO SCH (08:49)
[2021-08-19] MEDS: VITAMIN D 5,000 UNIT CAP PO SCH (08:51)
[2021-08-19] MEDS: GABAPENTIN 300 MG CAP PO SCH ×3 (08:51→22:05)
[2021-08-19] MEDS: LATANOPROST 0.005% 2.5ML OPTH OPTH SCH (08:52)
[2021-08-19] MEDS: MODAFINIL 200 MG PO SCH ×2 (08:52→21:00)
[2021-08-19] MEDS: HYDROCORTISONE ACETATE 25MG SUPP PR SCH ×2 (08:54→21:00)
[2021-08-19] MEDS: AMIODARONE HCL 100 MG PO SCH (08:54)
[2021-08-19] MEDS: modafiniL 100 MG TAB PO SCH (09:06)
[2021-08-19] MEDS: DULOXETINE 20 MG CAP PO SCH (09:06)
--- NOTE | 2021-08-19 16:18 | PN ---
Date of Progress Note: 08/19/2021 Subjective: The patient was seen this morning for followup. He was lying in bed, not in any distress. No diarrhea. In fact, he has not had a bowel movement today or yesterday. Every now and then when he passes gas per rectum, he actually has some smearing of stool, but no diarrhea. He reports no nausea, vomiting. No abdominal pain. Objective: Vital Signs: Reviewed. HEENT: Unremarkable. Lungs: Clear to auscultation. Heart: Sounds normal. Abdomen: Soft. Bowel sounds normal. No guarding, rigidity, tenderness, distention. Extremities: No leg edema. Neuro exam: No change from before with right-sided hemiparesis. Impression: 1. Stroke. 2. Paroxysmal atrial fibrillation. 3. Hypertension. 4. Clostridium difficile colitis. 5. Orthostatic hypotension. Plan: We will go ahead and continue current Pradaxa. Continue vancomycin and that actually has helped. He does not have diarrhea anymore. He was encouraged to keep himself well hydrated and he has stockings present on his both lower extremities. He was advised to exercise with his hands and legs as explained to him prior to getting up and nursing staff to check his orthostatic vital signs and we will decide depending on that if any further dose adjustment needs to be made or not. We will continue current midodrine and fludrocortisone. We will also continue current antihypertensive medication and the patient was encouraged to try to participate with the physical therapy starting tomorrow to see if we can help him qualify for inpatient rehab or not. I did try to reach out to the patient's to give her update but she was not available. RADHA/MODL Voice ID: [id number] Report ID: [id number] BRIAN
[2021-08-19] MEDS: ROSUVASTATIN 10 MG TAB PO SCH (22:05)
[2021-08-19] MEDS: AMLODIPINE 2.5 MG TAB PO SCH (22:06)
[2021-08-20] MEDS: VANCOMYCIN ORAL SOLN 250 MG/5 ML OSYR PO SCH ×4 (01:08→17:13)
[2021-08-20 05:45] LABS: Absolute Lymphocytes (CBC) 1.2 K/uL (0.7-4.9); Hematocrit 40.2 % (39.6-49.0); Lymphocytes % 15.1 % (15.3-44.8); MPV 7.7 fL (7.6-11.3); RBC Red Blood Cell Count 3.94 M/uL (4.33-5.43)
[2021-08-20 06:01] LABS: Magnesium 2.3 mg/dL (1.8-2.4); Potassium 3.9 mmol/L (3.5-5.1)
[2021-08-20] MEDS: MIDODRINE HCL 5 MG TABLET PO SCH ×4 (07:05→17:12)
[2021-08-20] MEDS: LEVOTHYROXINE SOD 0.1 MG TAB PO SCH (07:06)
[2021-08-20] MEDS: LEVOTHYROXINE SOD 0.075 MG TAB PO SCH (07:06)
[2021-08-20] MEDS: PANTOPRAZOLE 40MG TABLET PO SCH (07:07)
[2021-08-20 08:32] VITALS: BMI 20.3
[2021-08-20] MEDS: AMANTADINE 100 MG CAP PO SCH (08:47)
[2021-08-20] MEDS: FLUDROCORTISONE 0.1 MG TAB PO SCH (08:47)
[2021-08-20] MEDS: modafiniL 100 MG TAB PO SCH (08:49)
[2021-08-20] MEDS: GABAPENTIN 300 MG CAP PO SCH ×3 (08:49→21:04)
[2021-08-20] MEDS: OXcarbazepine 150 MG TAB PO SCH ×2 (08:49→21:04)
[2021-08-20] MEDS: DABIGATRAN 150 MG CAP PO SCH ×2 (08:49→21:04)
[2021-08-20] MEDS: DULOXETINE 20 MG CAP PO SCH (08:49)
[2021-08-20] MEDS: VITAMIN D 5,000 UNIT CAP PO SCH (08:49)
[2021-08-20] MEDS: MODAFINIL 200 MG PO SCH ×2 (08:50→21:00)
[2021-08-20] MEDS: LATANOPROST 0.005% 2.5ML OPTH OPTH SCH (08:50)
[2021-08-20] MEDS: MESALAMINE 400 MG CAPSULE.DR PO SCH ×2 (08:51→21:00)
[2021-08-20] MEDS: AMIODARONE HCL 100 MG PO SCH (08:51)
[2021-08-20] MEDS: HYDROCORTISONE ACETATE 25MG SUPP PR SCH ×2 (08:51→21:00)
[2021-08-20] MEDS: AMLODIPINE 2.5 MG TAB PO SCH ×2 (09:00→21:04)
[2021-08-20] MEDS: ROSUVASTATIN 10 MG TAB PO SCH (21:00)
--- NOTE | 2021-08-20 21:14 | PN ---
Date of Progress Note: 08/20/2021 Subjective: The patient was seen this morning for followup. No new complaints or problems reported by the patient lying in bed, not in distress. No more diarrhea. He did have 1 bowel movement since I saw him yesterday. No bleeding. No nausea, no vomiting. Objective: Vital Signs: Reviewed. HEENT: Unremarkable. Lungs: Clear to auscultation. Heart: Sounds normal. Abdomen: Soft. Bowel sounds normal. No guarding, rigidity, tenderness, or distention. Extremities: No leg edema. PROPERTY ASSISTANT Exam: Right-sided hemiparesis unchanged. Laboratory Data: White count 8.1, hemoglobin 13.6, platelets 301 today. Chemistry today sodium 138, potassium 3.9, chloride 105, bicarb 28, BUN 19, creatinine 0.92, glucose 93, magnesium 2.3. Impression: 1.Clostridium difficile colitis. 2.Stroke. 3.Paroxysmal atrial fibrillation. 4.Hypertension. 5.Orthostatic hypotension. 6.Chronic anticoagulation therapy. Plan: We will go ahead and continue current vancomycin. I have changed his amlodipine dose to 2.5 m g 2 times a day with instruction to hold amlodipine if systolic blood pressure less than 160. We rosio l continue midodrine 5 mg but increase dose from 2 times a day to 3 times a day. The patient was enc ouraged to drink more water, continue leg stockings use during daytime, take it off at nighttime, and the patient was instructed to exercise his upper and lower extremities before getting out of bed and Physical Therapy to work with the patient. I will see him tomorrow for followup. RADHA/MODL Voice ID: [id number] Report ID: [id number]
--- NOTE | 2021-08-20 21:41 | PN ---
Subjective: Mr. Valencia says he feels very well today. He actually had very good experience with the physical therapist. He reports slight improvement in the right-sided weakness, but still has ge neralized weakness related to his multiple sclerosis. His speech and swallowing improved slightly. Objective: Vital Signs: Blood pressure 149/80, pulse 68, respiratory rate 16, temperature 97.5, oxy gen saturation 99%. He had orthostatic blood pressures done, lying blood pressure 168/84, pulse 57, sitting blood pressure 126/83, pulse 62 and standing blood pressure dropped to 85/60 with pulse of 73 , it is mildly symptomatic. Neurological: Mr. Valencia has no significant improvement in his slightly slurred speech, which is also slow in speed and decreased in frequency. Subtle right-sided weakness still there 4/5, more th an this is diffuse weakness and mild incoordination in the upper and lower extremities. Laboratory Studies: White blood cell count 8.1, hemoglobin 13.6. Chemistries essentially unremarkab le except for slightly elevated BUN of 19, magnesium 2.3. The patient was positive for C diff last week and was treated by Dr. Mccollum. He continued physical the rapy, although it was noted that he had significant orthostasis. He did ambulate 40 feet with a roll ing walker with the moderate assistance required. He was out of bed and sat in a wheelchair with the rapeutic exercises. His supine to sit to stand were standby assistance. He also did exhibit some im pulsivity and would not always follow directions per the staff. Assessment: Mr. Valencia is a 75-year-old patient with acute left subcortical stroke involving bas al ganglia with some right-sided weakness. He has multiple sclerosis with chronic incoordination and diffuse weakness. He also had recent Clostridium difficile and has been in the hospital now for abo ut 11 days and also have some debility associated with that. He has multiple comorbid conditions aarti t are managed by Dr. Mccollum. Plan: 1.He is a good candidate for acute inpatient rehabilitation hospital floor and that the request will be made to his insurance to allow that to proceed. 2.Continue with Pradaxa 150 mg twice daily for myocardial infarction and stroke risk reduction. Con tinue with Synthroid for hypothyroidism. Continue with IV Provigil for fatigue related to MS. Lauren nue as per Dr. Mccollum with antibiotics, Cymbalta for depression along with his vitamin D especially for multiple sclerosis. Continue amantadine as scheduled and continue with Florinef to help support blo od pressure. Also, he should continue with Ocrevus infusions. MARCO/FABIOLA Voice ID: [id number] Report ID: [id number]
[2021-08-21] MEDS: VANCOMYCIN ORAL SOLN 250 MG/5 ML OSYR PO SCH ×3 (00:55→13:01)
[2021-08-21] MEDS: LEVOTHYROXINE SOD 0.1 MG TAB PO SCH (06:03)
[2021-08-21] MEDS: LEVOTHYROXINE SOD 0.075 MG TAB PO SCH (06:03)
[2021-08-21] MEDS: PANTOPRAZOLE 40MG TABLET PO SCH (06:03)
[2021-08-21] MEDS: MIDODRINE HCL 5 MG TABLET PO SCH ×3 (06:03→16:23)
--- NOTE | 2021-08-21 08:26 | EKG ---
Test Date: 2021-08-17 Test Time: 23:29:01 Academic Physician: EMERITAG MEASUREMENT RESULTS: Intervals: Rate: 76 NH: QRSD: 120 QT: 524 QTc: 589 [place]: P: NH: QRS: -46 T: 81 INTERPRETIVE STATEMENTS: Atrial fibrillation Left axis deviation Nonspecific intraventricular conduction delay ST & T wave abnormality, consider lateral ischemia or digitalis effect Abnormal ECG Compared to ECG 08/17/2021 23:27:57 Left-axis deviation now present Intraventricular conduction delay now present Possible ischemia now present Left anterior fascicular block no longer present ST (T wave) deviation still present Electronically Signed On 08-21-21 08:22:42 [employer] by Gregorio Espinosa
[2021-08-21] MEDS: AMLODIPINE 2.5 MG TAB PO SCH (09:00)
[2021-08-21] MEDS: VITAMIN D 5,000 UNIT CAP PO SCH (09:00)
[2021-08-21] MEDS: MESALAMINE 400 MG CAPSULE.DR PO SCH (09:00)
[2021-08-21] MEDS: AMIODARONE HCL 100 MG PO SCH (09:00)
[2021-08-21] MEDS: HYDROCORTISONE ACETATE 25MG SUPP PR SCH (09:00)
[2021-08-21] MEDS: FLUDROCORTISONE 0.1 MG TAB PO SCH (09:00)
[2021-08-21] MEDS: LATANOPROST 0.005% 2.5ML OPTH OPTH SCH (09:00)
[2021-08-21] MEDS: modafiniL 100 MG TAB PO SCH (09:48)
[2021-08-21] MEDS: DABIGATRAN 150 MG CAP PO SCH (09:49)
[2021-08-21] MEDS: GABAPENTIN 300 MG CAP PO SCH ×2 (09:49→13:01)
[2021-08-21] MEDS: AMANTADINE 100 MG CAP PO SCH (09:50)
[2021-08-21] MEDS: DULOXETINE 20 MG CAP PO SCH (09:50)
[2021-08-21] MEDS: OXcarbazepine 150 MG TAB PO SCH (09:50)
[2021-08-21 13:56] LABS: SARS-COV-2 RT PCR NEGATIVE (NEGATIVE)
[2021-08-21 16:28] VITALS: BP 154/82; TEMP 97.6
[2021-08-21 17:08] VITALS: O2SAT 96
== END 2021-08-21 19:00 | DRG 65 ==
LOC: ER 14:22 → ERHOLD 22:18 → 2ND 22:42
PROVIDERS: ADMIT Internal Medicine; ATTEND Internal Medicine
DX: I63.9 Cerebral infarction, unspecified (principal); G81.91 Hemiplegia, unspecified affecting right dominant side; A04.72 Enterocolitis due to Clostridium difficile, not specified as recurrent; K51.90 Ulcerative colitis, unspecified, without complications; R29.703 NIHSS score 3; G35 Multiple sclerosis; G50.0 Trigeminal neuralgia; E03.9 Hypothyroidism, unspecified; I10 Essential (primary) hypertension; E78.5 Hyperlipidemia, unspecified; I25.10 Atherosclerotic heart disease of native coronary artery without angina pectoris; K57.90 Diverticulosis of intestine, part unspecified, without perforation or abscess without bleeding; K21.9 Gastro-esophageal reflux disease without esophagitis; N40.0 Benign prostatic hyperplasia without lower urinary tract symptoms; J30.9 Allergic rhinitis, unspecified; I95.1 Orthostatic hypotension; K59.00 Constipation, unspecified; I48.0 Paroxysmal atrial fibrillation; K62.89 Other specified diseases of anus and rectum; Z79.01 Long term (current) use of anticoagulants; Z20.822 Contact with and (suspected) exposure to COVID-19
CPT/HCPCS: 0240U; 36415; 70450; 70544; 70549; 70553; 71045; 80048; 80061; 80076; 80162; 81003; 81015; 82024; 82274; 82533; 82607; 82746; 83735; 83880; 84443; 84484; 85025; 85610; 87045; 87046; 87177; 87209; 87324; 87449; 90471; 93005; 93306; 93880; 96361; 96365; 96366; 96375; 97110; 97112; 97116; 97161; 97165; 97530; 99285; A9577; J0834; J7030; J7040; Q2035; U0003

== ENCOUNTER 2021-08-21 19:34 | Inpatient (IN) | payer OTHER ==
--- NOTE | 2021-08-21 14:43 | R.PREADM ---
PRE-ADMISSION SCREENING FORM SCREENING DATE AND TIME 08/21/2021 11:02 (STACKER DRIVER) ANTICIPATED REHAB ADMISSION DATE 08/23/2021 REFERRING FACILITY [facility] REFERRAL DATE AND TIME 08/20/2021 11:02 (STACKER DRIVER) REFERRAL ROOM# 207 ACUTE ADMIT DATE 08/10/2021 Previous Rehabilitation(s): No. ACUTE BOAT HOP/DC COMBO WELDER RAGHAV ATTENDING PHYSICIAN REFERRING PHYSICIAN REHAB FACILITY [facility] CLINICAL LIAISON Gilda Payne PHYSICIAN REVIEWER Dr. Federico Pizano M.D. MR# [id number] NAME NEERU JJ ADDRESS [address] [facility] [id number] DATE OF 1945 AGE 75 SSN# [id number] GENDER male MARITAL STATUS PREF. LANGUAGE (IF NON-LITHUANIAN) Azeri ADMIT FROM 02 - [facility] PRE-HOSPITAL LIVING SETTING 01 - Home (private home/apt. board/care, assisted living, long-term, transitional living) HOME TYPE AND DETAILS Type of home: single family house # of levels in the residence: 1 # of steps within the residence: 0 # of steps to enter the residence: 0 PRE-HOSPITAL LIVING WITH Family/Relatives FAMILY SUPPORT Yes PRIMARY FAMILY CONTACT NAME TONNY JJ PRIMARY FAMILY CONTACT PHONE PRIMARY FAMILY CONTACT RELATIONSHIP PHONE PRIMARY FAMILY CONTACT ON ADM.? no IS PRIMARY FAMILY CONTACT AUTH. REP.? no 1ST EMERGENCY CONTACT TONNY JJ 1ST CONTACT PHONE 1ST CONTACT RELATIONSHIP PHONE 1ST CONTACT ON ADM. no IS 1ST CONTACT AUTH. REP.? no PHONE 2ND CONTACT ON ADM.? no PATIENT EMPLOYMENT STATUS Retired (for age) PATIENT EMPLOYER No Employer PAYOR INFORMATION: 1ST PAYOR NAME MEDICARE [employer] 1ST PAYOR PHONE [phone] 1ST PAYOR INJURY/ILLNESS DUE TO ACCIDENT? No ANOTHER GREEN PARTY RESPONSIBLE? No PRIMARY REHAB/ACUTE DIAGNOSIS: CVA ONSET DATE 08/10/2021 REHAB IMPAIRMENT CATEGORY (ASHLEE): 01 Stroke (STR) MEETS 60% rule AFFECTED EXTREMITIES: RLE, and RUE PRIMARY DIAGNOSIS-RELATED SURGERIES: N/A RISK FOR COMPLICATIONS: - CVA pt has history of CVA. Will monitor blood pressure and manage with medication. pt has elevated BP and requires medical monitoring to manage and reduce reisk for CVA. - Skin Breakdown Nursing will assess skin daily using assessment tool and will place on Skin Breakdown Precautions as Indicated per protocol - DVT PTT and INR will be monitored to effectively mitigate risk for development of DVT or PE while here. Medications will be administered as per MD - Falls Educated pt on fall prevention strategies to reduce/eliminate fall risk Patient will be evaluated for Fall Precautions and will be placed on Fall Precautions as indicated pe r protocol. - UTI Monitor for frequency, burning, discomfort, or incontinence - Pain Medications will be given and the pain level reassessed. Clinical Staff may employ other methods such as: massage, distraction, decrease stimulus, etc. as needed Educate patient on pain management strategies Clinical staff will assess patient's pain level every shift per protocol to monitor for pain manageme nt effectiveness SUMMARY OF ACUTE HOSPITALIZATION: Pt. is a 75 yo Right-handed male. On 08/10/2021 [facility] with sudden onset of right-side weakness. On 08/10/2021 he was admitted [facility] with diagnosis CVA. His impairment category is Stroke 01 - Right Body (Left Brain) (01.2). Pre-morbidly, Pt. was independent/mod-I in Locomotion, Safety Awareness, Social Cognition, and Balanc e; and he had good Transfers Control, Self-Care, Communication, Endurance, and Sphincter Control. Currently, he has deficits of Locomotion, Social Cognition, Safety Awareness, Transfers Control, Cesar nce, Sphincter Control, Endurance, Self-Care, and Communication. Pt. is now referred to [facility] for acute in-patient rehabilitation in order to maximize patient's functional independence in activities of daily living, strength, ROM, and mobi lity. Patient has realistic goal of being discharged at assistance level 7-Ind to reside at Home with Fami ly/Relatives. PAST MEDICAL HISTORY Multiple sclerosis (G35) Trigeminal neuralgia (G50.0) ALLERGIC RHINITIS Hypothyroidism, unspecified (E03.9) Impaired fasting glucose (R73.01) HYPERTENSION HYPERLIPIDEMIA CORONARY ARTERY DISEASE Chronic atrial fibrillation (I48.2) UNCERATIVE COLITIS GASTROSOPHAGEAL REFLUX DISEASE DIVERTICULOSIS benign prostatic hypertrophy (BPH) CHRONIC KIDNEY DISEASE PAST SURGICAL HISTORY: RADIOFREQUENCY ABLATION OF TRIGEMINAL NEURALGIA X 4 TONSILLECTOMY CORONARY ARTERY STENT PLACEMENT JUN 2020 BACK SURGERY ABLATION FOR ATRIAL FIB 2008 MEDICATION ALLERGIES: No Known Drug Allergies (NKDA) ENVIRONMENTAL ALLERGIES: - Substance Allergies None Known - Other Allergies None Known CODE STATUS: Full code WEIGHT/HEIGHT/BMI: WEIGHT 167 lbs HEIGHT 6' 4" BMI 20.3 DIET: - Diet Type Regular - Diet - Solid Texture Regular - Diet - Liquid Texture Regular - Tube Feed N/A REVIEW OF SYSTEMS: - Gen Alert and awake Lying in bed No apparent distress Oriented to: person, time, and place - Vital Signs Temperature: 97.8 F SBP/DBP: 157/81 Pulse: 53 Resp: 17 Vital signs stable, afebrile - CVS RRR VITAL SIGNS Temperature: 97.8 F 08/21/21 SBP/DBP: 157/81 Pulse: 53 Resp: 17 Vital signs stable, afebrile MEDICATIONS/TREATMENT: Other- See attached MAR (Medication Administration Record). CURRENT SPHINCTER CONTROL: Pre-hospital bladder status: unspecified # of bladder accidents in the last 7 days prior to screenin Pre-hospital bowel status: unspecified # of bowel accidents in the last 7 days prior to screenin Last Bowel Movement Date: 08/21/2021 CURRENT LOCOMOTION STATUS: distance walked 40 feet with rolling walker 08/20/21 DETAILED CURRENT FUNCTIONAL STATUS: - Bladder accident frequency: 7-Ind - No accidents in the past 7 days - Bowel accident frequency: 7-Ind - No accidents in the past 7 days - Walking score based on distance walked: 0(N/A) score based on distance walked: 1(<=50ft) - Wheelchair score based on distance traveled: 0(N/A) QI SCORES: - Self-Care A. Eating 03-Partial/moderate assistance B. Oral hygiene 03-Partial/moderate assistance C. Toileting hygiene 02-Substantial/maximal assistance E. Shower/bathe self 02-Substantial/maximal assistance F. Upper body dressing 03-Partial/moderate assistance G. Lower body dressing 03-Partial/moderate assistance H. Putting on/taking off footwear 88-Not attempted due to medical condition or safety concerns - Mobility A. Roll left and right 03-Partial/moderate assistance B. Sit to lying 03-Partial/moderate assistance C. Lying to sitting on side of bed 03-Partial/moderate assistance D. Sit to stand 03-Partial/moderate assistance E. Chair/yap-fd-uohsi transfer 03-Partial/moderate assistance F. Toilet transfer 03-Partial/moderate assistance G. Car transfer 88-Not attempted due to medical condition or safety concerns I. Walk 10 feet 03-Partial/moderate assistance J. Walk 50 feet with two turns 88-Not attempted due to medical condition or safety concerns K. Walk 150 feet 88-Not attempted due to medical condition or safety concerns L. Walking 10 feet on uneven surfaces 88-Not attempted due to medical condition or safety concerns M. 1 step (curb) 88-Not attempted due to medical condition or safety concerns N. 4 steps 88-Not attempted due to medical condition or safety concerns O. 12 steps 88-Not attempted due to medical condition or safety concerns P. Picking up object 03-Partial/moderate assistance R. Wheel 50 feet with two turns 88-Not attempted due to medical condition or safety concerns S. Wheel 150 feet 88-Not attempted due to medical condition or safety concerns - Bladder and Bowel Bladder continence Bowel continence - Endurance Fair - Balance Fair - Safety Awareness Fair CURRENT FUNC. DEFICITS: Self-Care, Mobility, Endurance, Balance, and Safety Awareness CURRENT / PREVIOUS ASSISTIVE DEVICES: Rolling Walker HISTORY OF FALLS. HAS THE PATIENT HAD TWO OR MORE FALLS IN THE PAST YEAR OR ANY FALL WITH INJURY IN T HE PAST YEAR?: No PRIOR SURGERY. DID THE PATIENT HAVE MAJOR SURGERY DURING THE 100 DAYS PRIOR TO ADMISSION?: No THERAPY NOTES FROM ACUTE CARE: Attached. SPECIAL NEEDS: - Safety Concerns Skin breakdown precautions needed due to skin breakdown risk PRECAUTIONS: - Weight Bearing Precaution WBAT right LE PATIENT NEEDS ACTIVE AND ONGOING THERAPEUTIC INTERVENTION OF MULTIPLE THERAPY DISCIPLINES, INCLUDING: - Dietary and Nutrition Adequate Nutrition. Nutritional Education. Nutritional Supplements. - Occupational Therapy Cognitive Retraining. Evaluate and Treat. Transfer Training. ADL Training. Adaptive Equipment. UE Str engthening. Household Tasks. Patient/Family Education. Safety Awareness. Visual Perceptual Training. - Speech Therapy Cognitive Training. Expressive Language Skills. Memory Strategies. Receptive Language Skills. Speech Intelligibility Training. - Physical Therapy Gait Training. Evaluate and Treat. LE Strengthening. Patient/Family Education. Transfer Training. Mob ility Training. Safety Awareness. Balance Training. PATIENT NEEDS CLOSE MEDICAL SUPERVISION BY A REHABILITATION PHYSICIAN FOR: Coordination of Treatment Team Medical and Co-Morbidity Management Pain Management DVT Management Bowel and Bladder Management PATIENT REQUIRES 24X7 REHAB NURSING FOR MEDICAL AND FUNCTIONAL MGT. OF THE FOLLOWING DEFICITS: Disease Management Medication Management Patient/Family Education Providing Safe Environment Bowel and Bladder Management Skin Integrity Pain Management PATIENT REQUIRES INTENSIVE, COORDINATED INTERDISCIPLINARY APPROACH TO REHAB: Arranging Home Equipment/Services Discharge Planning Family Intervention/Training Drier Feeder/Case Management PATIENT REHAB POTENTIAL: Saeed JJ is able and expected to receive 3 hours of individualized therapy daily on at least 5 o f every 7 days Saeed JJ's prognosis for significant practical improvement within a reasonable period of time ap pears Good Expected level of measurable improvement will be of a practical value to Saeed JJ's functional c apacity or adaptations to impairments Has a viable Discharge Plan Medically appropriate; condition is sufficiently stable to participate in intensive rehab program DISCHARGE PLAN: - Estimated Length of Stay (days) 17. - Consensus on plan Discharge plan has been discussed with primary caregiver. Patient/Family is in agreement with the luis n. Primary caregiver is in agreement with the plan. - Patient/Family Goals Return home independently. - Planned Living Setting Upon Discharge Home, to live with Family/Relatives. Transitional Living. RECOMMENDED CARE LEVEL: IRF RECOMMENDATION DETAILS: Recommended Admission to Comprehensive Rehabilitation Program to Increase Functional [place] SCREENER'S COMPLETENESS CONFIRMATION: - Screening Confirmation The patient data collection on this preadmission screening form is finished PHYSICIANS REVIEW AND ADMISSION DETERMINATION Admit - Based on my review of the Pre-Admission Screening results, in my medical judgment and experie nce, I concur with the findings and recommend admission to [facility], as this patient requires an IRF level of care. SIGNATURE PANEL: Food Beverage Manager - [electronically] signed by Gilda Payne on 08/21/2021 at 14:15 (STACKER DRIVER) Food Beverage Manager - [electronically] signed by Duncan Mireles PT on 08/21/2021 at 14:35 (STACKER DRIVER) Physician Reviewer - [electronically] signed by Dr. Federico Pizano M.D. on 08/21/2021 at 14:42 (STACKER DRIVER )
--- OUTSIDE RECORDS SUMMARY | 2021-08-21 19:39 | XMS REPORT | Continuity of Care Document ---
:1945 Author Organization [facility] t Address [address] [place] [address] [place] [id number] Care Team Providers Name Role Phone Timtohy GLEZ Primary Care Physician Unavailable AYAKA Attending Clinician Unavailable PAUMA Attending Clinician Unavailable Oliva Lim MD Attending Clinician BHARGAVI Attending Clinician Unavailable MD JOELLE BROOKS Attending Clinician Unavailable TODD Attending Clinician Unavailable Ayaka RAMOS Attending Clinician ADRYAN LIM Attending Clinician Unavailable BRET Attending Clinician Unavailable MD BHARGAVI RAntonino Attending Clinician Unavailable Lab, Fam Pob I Attending Clinician Unavailable Aneshama MAINTENANCE REPAIRER Attending Clinician LEONIE Attending Clinician Unavailable Doctor Unassigned, Name Attending Clinician Unavailable IRAIDA Attending Clinician Unavailable GUSTAVO Attending Clinician Unavailable ASKED Attending Clinician Unavailable José Miguel RAMOS, P Attending Clinician AYAKA Admitting Clinician Unavailable PAUMA Admitting Clinician Unavailable MD JOELLE BROOKS Admitting Clinician Unavailable BRET Admitting Clinician Unavailable BHARGAVI Admitting Clinician Unavailable MD Gene BURK Admitting Clinician Unavailable Payers Payer Name Policy Type Policy Number Effective Date Expiration Date S [place] MEDICARE A B [id number] 2011 2017 00:00:00 00:00:00 [employer] MEDICARE [id number] 2017 2020 ADV 00:00:00 00:00:00 AETNA INDEMNITY [id number] 2012 2016 NON CONTR 00:00:00 00:00:00 [facility] [id number] 2020 2020 00:00:00 00:00:00 UNITED MEDICARE [id number] 2020 HMO 00:00:00 MEDICARE ADVANTAGE [id number] 2020 PPO - [facility] 00:00:00 ZZZTRS-CARE [id number] 2020 MEDICARE ADVANTAGE 00:00:00 MEDICARE PART A [id number] \[id number]\ B - MEDICARE INDEMNITY/TRADITIO [id number] NAL CHOICE - AETNA Problems Condition Condition Condition Status Onset Resolution Last Treating Co mments Source Name Details Category Date Date Treatment Clinician Date ANAYELI ANAYELI Disease Active [facility] (obstructi (obstructi 10-21 Co llege ve sleep ve sleep 00:00: of apnea) apnea) 00 Medicin e Chronic Chronic Disease Active [facility] atrial atrial 3-27 College fibrillati fibrillati 00:00: of on on 00 Medicin (HCCode) (HCCode) e 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 8-19 [facility] (HCCode) (HCCode) 00:00: of 00 Medicin e 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 8-19 Co llege l l 00:00: of neuralgia) neuralgia) 00 Me dicin e Allergies, Adverse Reactions, Alerts Allergy Allergy Status Severity Reaction(s) Onset Inactive Treating Comm ents Source Name Type Date Date Clinician NO KNOWN Allergy [facility] NO KNOWN Drug Active [facility] ALLERGIE Class ity of S [facility] Social History Social Habit Start Date Stop Date Quantity Comments Source Exposure to Not sure [facility] Jo e of SARS-CoV-2 Medicine (event) History [facility] ge of Alcohol Std Medicine Drinks History [facility] ge of Alcohol Binge Medicine Alcohol intake 2021-04-16 2021-04-16 .29 /d [facility] Col lege of 00:00:00 00:00:00 Medicine History [facility] 2019-08-23 2019-08-23 2 [facility] Delores ge of Alcohol Frequency 00:00:00 00:00:00 Medicin e Alcohol Comment 2016-04-08 2016-04-08 social [facility] Co llege of 00:00:00 00:00:00 Medicine Tobacco use and 2015-03-15 2015-03-15 Never used [facility] Co llege of exposure 00:00:00 00:00:00 Medicine History of 1977-03-15 Cigarette Smoker [facility] ollege of tobacco use 00:00:00 Medicine Sex [birth year] At [birth year] [facility] 00:00:00 00:00:00 [facility] Smoking Status Start Date Stop Date Source Unknown if ever smoked [facility] Former smoker 2015-03-15 00:00:00 2015-03-15 00:00:00 [facility] ollege of Medicine Medications Ordered Filled Start Stop Current Ordering Indication Dosage Frequency Signature Comments Components Source Medication Medication Date Date Medication? Clinician (SIG) Name Name Dabigatran Yes Take by [place] [facility] Etexilate 9-20 mouth two Colle ge Mesylate 10:10: times of (PRADAXA) 55 daily. Medicin 150 MG CAPS e Mesalamine Yes Take by [facility] [place] [facility] (LIALDA) 9-20 mouth. College 1.2 G TBEC 10:10: of 55 Medicin e Cholecalcif Yes 5000mg Take 5,000 [facility] kerline 9-20 mg by [facility] (VITAMIN D 10:10: mouth of OR) 55 [...] 175 [facility] 9-20 mcg by [facility] (SYNTHROID) 10:10: mouth of 175 MCG 55 daily. Medicin tablet e oxcarbazepi Yes 300mg Take 300 [facility] 9-20 mg by [facility] (TRILEPTAL) 10:10: mouth two o f 300 MG 55 times Medicin tablet daily. e Dabigatran Yes Take by [facility] [place] [facility] Etexilate 9-20 mouth two Colle ge Mesylate 10:10: times of (PRADAXA) 55 daily. Medicin 150 MG CAPS e Mesalamine Yes Take by [place] [place] [facility] (LIALDA) 9-20 mouth. College 1.2 G TBEC 10:10: of 55 Medicin e Cholecalcif Yes 5000mg Take 5,000 [facility] kerline 9-20 mg by [place] (VITAMIN D 10:10: mouth of OR) 55 [...] 175 [place] ne 9-20 mcg by [facility] (SYNTHROID) 10:10: mouth of 175 MCG 55 daily. Medicin tablet e oxcarbazepi Yes 300mg Take 300 [place] ne 9-20 mg by [facility] (TRILEPTAL) 10:10: mouth two o f 300 [...] Medicin daily. e Amantadine Yes TAKE ONE [place] [place] [facility] HCl 100 MG 7-27 TABLET BY [facility] TABS 00:00: MOUTH of 00 TWICE A Medicin DAY e Amantadine 0 Yes TAKE ONE [place] [facility] HCl 100 MG 7-27 TABLET BY [facility] TABS 00:00: MOUTH of 00 TWICE A Medicin DAY e modafinil 0 2020- No TAKE ONE [place] [facility] (PROVIGIL) 6-24 09-20 TABLET BY Col lege 200 MG 00:00: 00:00 MOUTH of tablet 00 :00 TWICE A Medicin DAY e modafinil 2020- No TAKE ONE [place] [facility] (PROVIGIL) 6-24 -20 TABLET BY Col lege 200 MG 00:00: 00:00 MOUTH of tablet 00 :00 TWICE A Medicin DAY e Dabigatran Yes Take by [place] [facility] Etexilate 5-24 mouth two Colle ge Mesylate 09:11: times of (PRADAXA) 20 daily. Medicin 150 MG CAPS e Mesalamine Yes Take by [place] [facility] (LIALDA) 5-24 mouth. College 1.2 G TBEC 09:11: of 20 Medicin e Cholecalcif Yes 5000mg Take 5,000 [facility] kerline 5-24 mg by [place] (VITAMIN D 09:11: mouth of OR) 20 [...] 175 [place] ne 5-24 mcg by [place] (SYNTHROID) 09:11: mouth of 175 MCG 20 daily. Medicin tablet e oxcarbazepi Yes 300mg Take 300 [facility] ne 5-24 mg by [place] (TRILEPTAL) 09:11: mouth two o f 300 MG 20 times Medicin tablet daily. e digoxin Yes 125ug Take 125 [facility] (LANOXIN) 4-13 mcg by [place] 125 MCG 00:00: mouth at of tablet 00 bedtime. Medicin e digoxin Yes 125ug Take 125 [facility] (LANOXIN) 4-13 mcg by [place] 125 MCG 00:00: mouth at of tablet 00 bedtime. Medicin e digoxin Yes 125ug Take 125 [facility] (LANOXIN) 4-13 mcg by [place] 125 MCG 00:00: mouth at of tablet 00 bedtime. Medicin e digoxin Yes 125ug Take 125 [facility] (LANOXIN) 4-13 mcg by [place] 125 MCG 00:00: mouth at of tablet 00 bedtime. Medicin e Dabigatran Yes Take by [place] [facility] Etexilate 3-01 mouth two Colle ge Mesylate 15:43: times of (PRADAXA) 03 daily. Medicin 150 MG CAPS e Mesalamine 0 Yes Take by [place] [facility] (LIALDA) 3-01 mouth. [place] 1.2 G TBEC 15:43: of 03 Medicin e Cholecalcif 2020-0 Yes 5000mg Take 5,000 [facility] kerline 3-01 mg by [place] (VITAMIN D 15:43: mouth of OR) 03 [...] 175 [place] ne 3-01 mcg by [place] (SYNTHROID) 15:43: mouth of 175 MCG 03 daily. Medicin tablet e oxcarbazepi Yes 300mg Take 300 [facility] [place] 3-01 mg by [place] (TRILEPTAL) 15:43: mouth two o f 300 MG 03 times Medicin tablet daily. e Dabigatran 2020-0 Yes Take by [place] [facility] Etexilate 3- mouth two Colle ge Mesylate 15:43: times of (PRADAXA) 03 daily. Medicin 150 MG CAPS e Mesalamine 2020-0 Yes Take by [place] [facility] (LIALDA) 3-01 mouth. [place] 1.2 G TBEC 15:43: of 03 Medicin e Cholecalcif 2020-0 Yes 5000mg Take 5,000 [facility] kerline 3-01 mg by [place] (VITAMIN D 15:43: mouth of OR) 03 [...] 175 [place] ne 3-01 mcg by [facility] (SYNTHROID) 15:43: mouth of 175 MCG 03 daily. Medicin tablet e oxcarbazepi Yes 300mg Take 300 [place] ne 3-01 mg by [facility] (TRILEPTAL) 15:43: mouth two o f 300 MG 03 times Medicin tablet daily. e Dabigatran Yes Take by [place] [facility] Etexilate - mouth two Colle ge Mesylate 15:43: times of (PRADAXA) 03 daily. Medicin 150 MG CAPS e Mesalamine Yes Take by [place] [facility] (LIALDA) 3- mouth. [place] 1.2 G TBEC 15:43: of 03 Medicin e Cholecalcif Yes 5000mg Take 5,000 [facility] kerline 3- mg by [place] (VITAMIN D 15:43: mouth of OR) 03 [...] 175 [place] ne 3-01 mcg by [place] (SYNTHROID) 15:43: mouth of 175 MCG 03 daily. Medicin tablet e oxcarbazepi Yes 300mg Take 300 [place] ne 3-01 mg by [place] (TRILEPTAL) 15:43: mouth two o f 300 [...] rosuvastati 2020-0 Yes 10mg Take 10 mg [facility] n (CRESTOR) 2-26 by mouth [facility] 10 MG 00:00: daily. of tablet 00 Medicin e rosuvastati 2020-0 Yes 10mg Take 10 mg [facility] (CRESTOR) 2-26 by mouth [facility] 10 MG 00:00: daily. of tablet 00 Medicin e rosuvastati 2020-0 Yes 10mg Take 10 mg [facility] n (CRESTOR) 2-26 by mouth [facility] [...] rosuvastati 2020-0 Yes 10mg Take 10 mg [facility] n (CRESTOR) 2-26 by mouth [facility] 10 MG 00:00: daily. of tablet 00 Medicin e Alfuzosin 2020-0 Yes [id number] 10mg Take 10 mg [facility] HCl 10 MG 2-16 9100 by mouth Colleg e TB24 00:00: at of 00 bedtime. Medicin e Alfuzosin 2020-0 Yes [id number] 10mg Take 10 mg [facility] HCl 10 MG 2-16 9100 by mouth Colleg e TB24 00:00: at of 00 bedtime. Medicin e Alfuzosin 2020-0 Yes [id number] 10mg Take 10 mg [facility] HCl 10 MG 2-16 9100 by mouth Colleg e TB24 00:00: at of 00 bedtime. Medicin e Alfuzosin 2020-0 Yes [id number] 10mg Take 10 mg [facility] HCl 10 MG 2-16 9100 by mouth Colleg e TB24 00:00: at of 00 bedtime. Medicin e Alfuzosin 2020-0 Yes [id number] 10mg Take 10 mg [facility] HCl 10 MG 2-16 9100 by mouth Colleg e TB24 00:00: at of 00 bedtime. Medicin e Alfuzosin 2020-0 Yes [id number] 10mg Take 10 mg [facility] HCl 10 MG 2-16 9100 by mouth Colleg e TB24 00:00: at of 00 bedtime. Medicin e latanoprost 2020-0 Yes [facility] (XALATAN) 2-08 [place] 0.005 % 00:00: of ophthalmic 00 Medicin solution e latanoprost 2020-0 Yes [facility] (XALATAN) 2-08 [place] 0.005 % 00:00: of ophthalmic 00 Medicin solution e latanoprost 2020-0 Yes [facility] (XALATAN) 2-08 [place] 0.005 % 00:00: of ophthalmic 00 Medicin solution e latanoprost 2020-0 Yes [facility] (XALATAN) 2-08 [place] 0.005 % 00:00: of ophthalmic 00 Medicin solution e latanoprost 2020-0 Yes [facility] (XALATAN) 2-08 [place] 0.005 % 00:00: of ophthalmic 00 Medicin [...] for Anxiety. lorazepam Yes .5mg Take 1 [facility] (ATIVAN) 2-03 Tablet by Colleg e 0.5 MG 00:00: mouth of tablet 00 every 6 Medicin hours as e needed for Anxiety. lorazepam 0 202- No .5mg Take 1 [facility] (ATIVAN) 2-03 04-15 Tablet by Colle ge 0.5 MG 00:00: 00:00 mouth of tablet 00 :00 every 6 Medicin hours as e needed for Anxiety. clopidogrel 2019-07 Yes 75mg Take 75 mg [facility] (PLAVIX) 75 2-18 by mouth [facility] MG Tablet 00:00: daily. of 00 Medicin e clopidogrel 2019-07 Yes 75mg Take 75 mg [facility] (PLAVIX) 75 2-18 by mouth [facility] MG Tablet 00:00: daily. of Medicin e clopidogrel 2019-07 Yes 75mg Take 75 mg [facility] (PLAVIX) 75 2-18 by mouth [facility] MG Tablet 00:00: daily. of Medicin e clopidogrel 2019-07- No 75mg Take 75 mg [facility] (PLAVIX) 75 2-18 05-24 by mouth Col [...] DAY e Amantadine 2019-07 Yes TAKE ONE [place] [place] [facility] HCl 100 MG 1-27 TABLET BY [facility] TABS 00:00: MOUTH of 00 TWICE A Medicin DAY e Amantadine 2019- Yes TAKE ONE [place] [facility] HCl 100 MG 1-27 TABLET BY [facility] TABS 00:00: MOUTH of 00 TWICE A Medicin DAY e Amantadine 2019- Yes TAKE ONE [place] [facility] HCl 100 MG 1-27 TABLET BY [facility] TABS 00:00: MOUTH of 00 TWICE A Medicin DAY e Amantadine 2019-07 Yes TAKE ONE [place] [facility] HCl 100 MG 1-27 TABLET BY [facility] TABS 00:00: MOUTH of 00 TWICE A Medicin DAY e amiodarone 2020-0 Yes [facility] (PACERONE) 8 [place] 200 MG 00:00: of tablet 00 Medicin e amiodarone 2020-0 Yes [facility] (PACERONE) 03-03 [place] 200 MG 00:00: of tablet 00 Medicin e amiodarone 2019-0 2020- No [facility] (PACERONE) 03-03 04-15 [place] 200 MG 00:00: 00:00 of tablet 00 :00 Medicin e Dabigatran 2020-0 Yes Take by [facility] Etexilate 3-17 mouth two Colle ge Mesylate 16:18: times of (PRADAXA) 48 daily. Medicin 150 MG CAPS e Mesalamine 2019-0 Yes Take by [facility] (LIALDA) 3-17 mouth. [place] 1.2 G TBEC 16:18: of 48 Medicin e Cholecalcif 2020-0 Yes 5000mg Take 5,000 [facility] kerline 3-17 mg by [place] (VITAMIN D 16:18: mouth of OR) 48 [...] 2.5 [facility] (NORVASC) 3-17 mg by [place] 2.5 MG 16:18: mouth of tablet 48 daily. Medicin e levothyroxi 2020-0 Yes 175ug Take 175 [facility] 3-17 mcg by [place] (SYNTHROID) 16:18: mouth of 175 MCG 48 daily. Medicin tablet e oxcarbazepi 2020-0 Yes 300mg Take 300 [facility] [place] [facility] 3-17 mg by [place] (TRILEPTAL) 16:18: mouth two o f 300 MG 48 times Medicin tablet daily. e oxcarbazepi 2020-0 Yes 150mg Take 150 [facility] [place] [facility] 3-17 mg by [place] (TRILEPTAL) 16:18: mouth two o f 150 MG 48 times Medicin tablet daily. e Tamsulosin 2020-0 Yes [id number] .4mg Take 0.4 [facility] HCl 0.4 MG 3-17 9100 mg by [place] CAPS 00:00: mouth at of 00 bedtime. Medicin e ciprofloxac 2020-0 Yes [id number] 500mg Take 1 Tab [facility] in (CIPRO) 3-17 by mouth Colle ge 500 MG 00:00: two times of tablet 00 daily. Medicin e Amantadine 2020-0 Yes TAKE ONE [place] [facility] HCl 100 MG 3-16 TABLET BY [facility] TABS 00:00: MOUTH of 00 TWICE A Medicin DAY e Dabigatran 2020-0 Yes Take by [place] [facility] Etexilate 2-25 mouth two Colle ge Mesylate 19:48: times of (PRADAXA) 18 daily. Medicin 150 MG CAPS e Mesalamine 2020-0 Yes Take by [place] [facility] (LIALDA) 2-25 mouth. [place] 1.2 G TBEC 19:48: of 18 Medicin e Cholecalcif 2020-0 Yes 5000mg Take 5,000 [facility] kerline 2-25 mg by [place] (VITAMIN D 19:48: mouth of OR) 18 [...] e LATANOPROST 2019-0 2020- No Apply to [facility] OP 2-25 02-25 eye. College 19:48: 00:00 of 18 :00 Medicin e potassium 2020-0 2020- No 10meq Take 10 [place] [facility] chloride 2-25 02-25 mEq by [place] (KDUR) 10 19:48: 00:00 mouth of MEQ [...] Take 5,000 [facility] kerline 1-27 mg by [place] (VITAMIN D 18:14: mouth of OR) 28 [...] 150 [place] [facility] 1-27 mcg by [place] (SYNTHROID) 18:14: mouth of 150 MCG 28 daily. Medicin tablet e Dabigatran 2019-0 Yes Take by [place] [facility] Etexilate 08-23 mouth two Colle ge Mesylate 18:14: times of (PRADAXA) 28 daily. Medicin 150 MG CAPS e LATANOPROST 2020-0 Yes Apply to [facility] OP 08-23 eye. College 18:14: of Medicin e potassium 2020-0 Yes 10meq Take 10 [facility] chloride -27 mEq by [place] (KDUR) 10 18:14: mouth of MEQ tablet 28 daily. Medicin e Mesalamine 2019-0 Yes Take by [place] [facility] (LIALDA) 08-23 mouth. College 1.2 G TBEC 18:14: of Medicin e methylPREDN 2018-07 Yes Take by [place] [facility] ISolone -15 mouth as College (MEDROL [...] e modafinil 2018-07 2020- No TAKE ONE [place] [facility] (PROVIGIL) 1-08 02-25 TABLET BY Col [...] Medicin DAY e Amantadine Yes TAKE ONE [place] [facility] HCl 100 MG 3-25 TABLET BY [facility] TABS 00:00: MOUTH of 00 TWICE A Medicin DAY e Amantadine Yes TAKE ONE [place] [facility] HCl 100 MG 3-25 TABLET BY [facility] TABS 00:00: MOUTH of 00 TWICE A Medicin DAY e Amantadine Yes TAKE ONE [place] [facility] HCl 100 MG 3-25 TABLET BY [facility] TABS 00:00: MOUTH of 00 TWICE A Medicin DAY e furosemide Yes 40mg Take 40 mg [facility] (LASIX) 40 1-14 by mouth Colle ge MG tablet 20:27: daily. of 10 Medicin e levothyroxi Yes 150ug Take 150 [place] [facility] 1-14 mcg by [place] (SYNTHROID) 20:27: mouth of 150 MCG 10 daily. Medicin tablet e Dabigatran Yes Take by [place] [facility] Etexilate 1-14 mouth two Colle ge Mesylate 20:27: times of (PRADAXA) 10 daily. Medicin 150 MG CAPS e LATANOPROST Yes Apply to [facility]ang[facility] OP 1-14 eye. [place] 20:27: of 10 Medicin e potassium Yes 10meq Take 10 [facility] chloride 1-14 mEq by [place] (KDUR) 10 20:27: mouth of MEQ tablet 10 daily. Medicin e Mesalamine Yes Take by [place] [facility] (LIALDA) 1-14 mouth. College 1.2 G TBEC 20:27: of 10 Medicin e Cholecalcif Yes 5000mg Take 5,000 [facility] kerline 1-14 mg by [place] (VITAMIN D 20:27: mouth of OR) 10 daily. Medicin e amiodarone Yes Inject [facility] (CORDARONE) 1-14 into the [facility] 50 mg/mL 20:27: vein. of injection 10 Medicin e Ocrelizumab Yes Inject [facility] (OCREVUS) 1-14 into the Colleg e 300 MG/10ML 20:27: vein once. of injection 10 Medicin e oxcarbazepi Yes [facility] 04-02 [place] (TRILEPTAL) 00:00: of 600 MG 00 Medicin tablet e oxcarbazepi Yes [facility] 04-02 [place] (TRILEPTAL) 00:00: of 600 MG 00 Medicin tablet e oxcarbazepi 2020- No [facility] r pr 04-02 [place] (TRILEPTAL) 00:00: 00:00 of 600 MG 00 :00 Medicin tablet e esomeprazol Yes [facility] e (NEXIUM) 03-13 [place] 40 MG 00:00: of capsule 00 Medicin e esomeprazol Yes [facility] e (NEXIUM) 03-13 [place] 40 MG 00:00: of capsule 00 Medicin e esomeprazol Yes [facility] e (NEXIUM) 03-13 [place] 40 MG 00:00: of capsule 00 Medicin e esomeprazol Yes [facility] e (NEXIUM) 8-17 College 40 MG 00:00: of capsule 00 Medicin e esomeprazol 2015- Yes [facility] (NEXIUM) 8-17 College 40 MG 00:00: of capsule 00 Medicin e esomeprazol Yes [facility] (NEXIUM) 8-17 College 40 MG 00:00: of capsule 00 Medicin e esomeprazol Yes [facility] (NEXIUM) 8-17 College 40 MG 00:00: of capsule Medicin e esomeprazol Yes [facility] e (NEXIUM) 8-17 College 40 MG 00:00: [...] kg Systolic blood 2021-04-16 15:06:00 96 mm[Hg] [facility] pressure Medicine Diastolic blood 2021-04-16 15:06:00 63 mm[Hg] [facility] pressure Medicine Heart rate 2021-04-16 15:06:00 69 /min [facility] Body height 2021-04-16 15:06:00 193 cm [facility] Body weight 2021-04-16 15:06:00 74.39 kg [facility] BMI 2021-04-16 15:06:00 19.96 kg/m2 [facility] Systolic blood 2020-12-18 14:09:00 169 mm[Hg] [facility] pressure Medicine Diastolic blood 2020-12-18 14:09:00 108 mm[Hg] [facility] pressure Medicine Heart rate 2020-12-18 14:09:00 67 /min [facility] Body temperature 2020-12-18 14:09:00 36.28 Vaishnavi [facility] Respiratory rate 2020-12-18 14:09:00 16 /min [facility] Body height 2020-12-18 14:09:00 193 cm [facility] ollege of [facility] Body weight 2020-12-18 14:09:00 75.841 kg [facility] BMI 2020-12-18 14:09:00 20.35 [facility] Oxygen saturation in 2020-12-18 14:09:00 100 /min [facility] Arterial blood by [facility] Pulse oximetry Systolic blood 2020-11-09 15:14:00 99 mm[Hg] [facility] pressure Medicine Diastolic blood 2020-11-09 15:14:00 71 mm[Hg] [facility] pressure Medicine Heart rate 2020-11-09 15:14:00 128 /min [facility] Body height 2020-11-09 15:14:00 193 [facility] Body weight 2020-11-09 15:14:00 76.204 kg [facility] BMI 2020-11-09 15:14:00 20.45 [facility]m2 [facility] Systolic blood 2020-09-27 16:10:00 121 mm[Hg] [facility] pressure Medicine Diastolic blood 2020-09-27 16:10:00 80 mm[Hg] [facility] pressure Medicine Heart rate 2020-09-27 16:10:00 70 /min [facility] Body height 2020-09-27 16:10:00 193 cm [facility] Body weight 2020-09-27 16:10:00 83.915 kg [facility] BMI 2020-09-27 16:10:00 22.52 kg/m2 [facility] Systolic blood 2020-09-25 15:40:00 121 mm[Hg] [facility] pressure Medicine Diastolic blood 2020-09-25 15:40:00 85 mm[Hg] [facility] pressure Medicine Heart rate 2020-09-25 15:40:00 64 /min [facility] Body temperature 2020-09-25 15:40:00 36.22 Vaishnavi [facility] Respiratory rate 2020-09-25 15:40:00 16 /min [facility] Body height 2020-09-25 15:40:00 193 cm [facility] Body weight 2020-09-25 15:40:00 83.008 kg [facility] BMI 2020-09-25 15:40:00 22.28 kg[facility]m2 [facility] Oxygen saturation in 2020-09-25 15:40:00 100 /min [facility] blood by [facility] Pulse oximetry HEIGHT 2020-09-08 10:50:00 193 cm WEIGHT 2020-09-08 10:50:00 83.144 kg HEIGHT 2020-09-08 10:50:00 193 cm WEIGHT 2020-09-08 10:50:00 83.144 kg Systolic blood 2019-10-12 16:12:00 177 mm[Hg] [facility] of pressure Medicine Diastolic blood 2019-10-12 16:12:00 107 mm[Hg] [facility] of pressure Medicine Heart rate 2019-10-12 16:12:00 58 /min [facility] Body height 2019-10-12 16:12:00 193 cm [facility] Body weight 2019-10-12 16:12:00 83.915 kg [facility] BMI 2019-10-12 16:12:00 22.52 kg/m2 [facility] Systolic blood 2019-09-21 19:28:00 139 mm[Hg] [facility] of pressure Medicine Diastolic blood 2019-09-21 19:28:00 97 mm[Hg] [facility] of pressure Medicine Heart rate 2019-09-21 19:28:00 56 /min [facility] Body height 2019-09-21 19:28:00 193 cm [facility] Body weight 2019-09-21 19:28:00 82.555 kg [facility] of [facility] BMI 2019-09-21 19:28:00 22.15 [facility] blood 2019-08-23 18:15:00 125 mm[Hg] [facility] of pressure Medicine Diastolic blood 2019-08-23 18:15:00 86 mm[Hg] [facility] of pressure Medicine Heart rate 2019-08-23 18:15:00 65 /min [facility] Body temperature 2019-08-23 18:15:00 36.5 Vaishnavi [facility] Respiratory rate 2019-08-23 18:15:00 14 /min [facility] Body height 2019-08-23 18:15:00 193 cm [facility] Body weight 2019-08-23 18:15:00 83.915 kg [facility] BMI 2019-08-23 18:15:00 22.52 kg/m2 [facility] Oxygen saturation in 2019-08-23 18:15:00 99 /min [facility] Arterial blood by [facility] Pulse oximetry Systolic blood 2019-03-04 18:59:00 155 mm[Hg] [facility] of pressure Medicine Diastolic blood 2019-03-04 18:59:00 96 mm[Hg] [facility] pressure Medicine Heart rate 2019-03-04 18:59:00 63 /min [facility] Body height 2019-03-04 18:59:00 193 cm [facility] Body weight 2019-03-04 18:59:00 87.998 kg [facility] BMI 2019-03-04 18:59:00 23.61 kg/m2 [facility] Procedures This patient has no known procedures. Plan of Care Planned Activity Planned Date Details Comments Source Future Scheduled 2021-04-16 TETANUS SHOT (ADULT) [facility] Test 10:09:56 [code = TETANUS SHOT of Medi cine (ADULT)] Future Scheduled 2021-04-16 Hepatitis C screening [facility] Test 10:09:56 (procedure) [code = of Medic ine 940774630] Future Scheduled 2021-04-16 ZOSTER VACCINE (1 of [facility] Test 10:09:56 2) [code = ZOSTER of Medicin e VACCINE (1 of 2)] Future Scheduled 2021-04-16 Abdominal aortic [facility] Test 10:09:56 aneurysm screening of Medici ne (procedure) [code = 359292689] Future Scheduled 2021-04-16 PNEUMOVAX >=65 [facility] Test 10:09:56 (PPSV23) [code = of Medicine PNEUMOVAX >=65 (PPSV23)] Future Scheduled 2021-04-16 Screening for [facility] Test 10:09:56 malignant neoplasm of of Med icine colon (procedure) [code = 765911533] Future Scheduled 2021-04-16 FLU VACCINE > 6 [facility] Test 10:09:56 MONTHS [code = FLU of Medici ne VACCINE > 6 MONTHS] Future Scheduled 2021-04-16 FALL SCREEN [code = [employer] Test 10:09:56 FALL SCREEN] of Medicine Future Scheduled 2021-04-16 TETANUS SHOT (ADULT) [employer] Test 10:09:56 [code = TETANUS SHOT of Medi cine (ADULT)] Future Scheduled 2021-04-16 Hepatitis C screening [facility] Test 10:09:56 (procedure) [code = of Medic ine 877300318] Future Scheduled 2021-04-16 ZOSTER VACCINE (1 of [facility] Test 10:09:56 2) [code = ZOSTER of Medicin e VACCINE (1 of 2)] Future Scheduled 2021-04-16 Abdominal aortic [facility] Test 10:09:56 aneurysm screening of Medici ne (procedure) [code = 847780013] Future Scheduled 2021-04-16 PNEUMOVAX >=65 [facility] Test 10:09:56 (PPSV23) [code = of Medicine PNEUMOVAX >=65 (PPSV23)] Future Scheduled 2021-04-16 Screening for [facility] Test 10:09:56 malignant neoplasm of of Med icine colon (procedure) [code = 427893934] Future Scheduled 2021-04-16 FLU VACCINE > 6 [facility] Test 10:09:56 MONTHS [code = FLU of Medici ne VACCINE > 6 MONTHS] Future Scheduled 2021-04-16 FALL SCREEN [code = [employer] Test 10:09:56 FALL SCREEN] of Medicine Future Scheduled 2020-12-21 TETANUS SHOT (ADULT) [employer] Test 13:03:52 [code = TETANUS SHOT of Medi cine (ADULT)] Future Scheduled 2020-12-21 Hepatitis C screening [employer] Test 13:03:52 (procedure) [code = of Medic ine 493002123] Future Scheduled 2020-12-21 ZOSTER VACCINE (1 of [employer] Test 13:03:52 2) [code = ZOSTER of Medicin e VACCINE (1 of 2)] Future Scheduled 2020-12-21 Abdominal aortic [facility] [employer] Test 13:03:52 aneurysm screening of Medici ne (procedure) [code = 841070184] Future Scheduled 2020-12-21 PNEUMOVAX >=65 [facility] Test 13:03:52 (PPSV23) [code = of Medicine PNEUMOVAX >=65 (PPSV23)] Future Scheduled 2020-12-21 Screening for [facility] Test 13:03:52 malignant neoplasm of of Med icine colon (procedure) [code = 846461076] Future Scheduled 2020-12-21 FLU VACCINE > 6 [facility] Test 13:03:52 MONTHS [code = FLU of Medici ne VACCINE > 6 MONTHS] Future Scheduled 2020-12-21 FALL SCREEN [code = [employer] Test 13:03:52 FALL SCREEN] of Medicine Future Scheduled TETANUS SHOT (ADULT) [employer] Test [code = TETANUS SHOT of Medi cine (ADULT)] Future Scheduled HEPATITIS C SCREENING [employer] Test [code = HEPATITIS C of Medic ine SCREENING] Future Scheduled MEDICARE AWV [facility] [employer] Test (Initial) [code = of Medicin e MEDICARE AWV (Initial)] Future Scheduled AAA Screen [code = [employer] [facility] AAA Screen] of Medicine Future Scheduled FALL SCREEN [code = [employer] Test FALL SCREEN] of Medicine Future Scheduled PNEUMOVAX >=65 [facility] Test (PPSV23) [code = of Medicine PNEUMOVAX >=65 (PPSV23)] Future Scheduled PREVNAR >= 65 (PCV13) [employer] Test [code = PREVNAR >= 65 of Med icine (PCV13)] Future Scheduled COLON CANCER [facility] [employer] Test SCREENING: of Medicine COLONOSCOPY [code = COLON CANCER SCREENING: COLONOSCOPY] Future Scheduled FLU VACCINE > 6 [facility] Test MONTHS [code = FLU of Medici ne VACCINE > 6 MONTHS] Future Scheduled ABSOLUTE LYMPHOCYTE Ordered: [employer] Test COUNT [code = NOCPT] 09/21/2019 of Medi cine Future Scheduled COMPREHENSIVE Ordered: [facility] Test METABOLIC PANEL [code 09/21/2019 of Med icine = 28196-9] Future Scheduled IMMUNOGLOBULIN [facility] Test PROFILE [code = of Medicine 09284-4] Future Scheduled TETANUS SHOT (ADULT) [employer] Test [code = TETANUS SHOT [...] SCREEN] of Medicine Future Scheduled PNEUMOVAX >=65 [facility] Test (PPSV23) [code = of Medicine PNEUMOVAX >=65 (PPSV23)] Future Scheduled PREVNAR >= 65 (PCV13) [employer] Test [code = PREVNAR >= 65 of Med icine (PCV13)] Future Scheduled COLON CANCER [facility] [employer] Test SCREENING: of Medicine COLONOSCOPY [code = COLON CANCER SCREENING: COLONOSCOPY] Future Scheduled FLU VACCINE > 6 [facility] Test MONTHS [code = FLU of Medici ne VACCINE > 6 MONTHS] Future Scheduled URINALYSIS AUTO Ordered: [facility] Test W/SCOPE [code = 10/12/2019 of Medicine 83234-0] Future Scheduled TETANUS SHOT (ADULT) [employer] Test [code = TETANUS SHOT of Medi cine (ADULT)] Future Scheduled HEPATITIS C SCREENING [employer] Test [code = HEPATITIS C of Medic ine SCREENING] Future Scheduled MEDICARE AWV [facility] [employer] Test (Initial) [code = of [...] Med icine (PCV13)] Future Scheduled COLON CANCER [facility] [employer] Test SCREENING: of Medicine COLONOSCOPY [code = COLON CANCER SCREENING: COLONOSCOPY] Future Scheduled FLU VACCINE > 6 [employer] Test MONTHS [code = FLU of Medici ne VACCINE > 6 MONTHS] Future Scheduled TETANUS SHOT (ADULT) [employer] Test [code = TETANUS SHOT of Medi cine (ADULT)] Future Scheduled HEPATITIS C SCREENING [employer] Test [code = HEPATITIS C of Medic ine SCREENING] Future Scheduled ZOSTER VACCINE (1 of [employer] Test 2) [code = ZOSTER of Medicin e VACCINE (1 of 2)] Future Scheduled AAA Screen [code = [employer] Test AAA Screen] of Medicine Future Scheduled PNEUMOVAX >=65 [facility] Test (PPSV23) [code = of Medicine PNEUMOVAX >=65 (PPSV23)] Future Scheduled COLON CANCER [facility] [employer] Test SCREENING: of Medicine COLONOSCOPY [code = COLON CANCER SCREENING: COLONOSCOPY] Future Scheduled MEDICARE AWV [facility] [employer] Test (Initial) [code = of Medicin e MEDICARE AWV (Initial)] Future Scheduled FLU VACCINE > 6 [employer] Test MONTHS [code = FLU of Medici ne VACCINE > 6 MONTHS] Future Scheduled FALL SCREEN [code = [employer] Test FALL SCREEN] of Medicine Future Scheduled ABSOLUTE LYMPHOCYTE Ordered: [employer] Test COUNT [code = NOCPT] 09/27/2020 of Medi cine Future Scheduled COMPREHENSIVE Ordered: [facility] Test METABOLIC PANEL [code 09/27/2020 of Med icine = 87145-4] Future Scheduled IMMUNOGLOBULIN Ordered: [facility] Test PROFILE [code = 09/27/2020 of Medicine 42854-9] Future Scheduled TETANUS SHOT (ADULT) [employer] Test [code = TETANUS SHOT of Medi cine (ADULT)] Future Scheduled HEPATITIS C SCREENING [employer] Test [code = HEPATITIS C of Medic ine SCREENING] Future Scheduled ZOSTER VACCINE (1 of [employer] Test 2) [code = ZOSTER of Medicin e VACCINE (1 of 2)] Future Scheduled AAA Screen [code = [employer] Test AAA Screen] of Medicine Future Scheduled PNEUMOVAX >=65 [employer] Test (PPSV23) [code = of Medicine PNEUMOVAX >=65 (PPSV23)] Future Scheduled COLON CANCER [facility] [employer] Test SCREENING: of Medicine COLONOSCOPY [code = COLON CANCER SCREENING: COLONOSCOPY] Future Scheduled MEDICARE AWV [facility] [employer] Test (Initial) [code = of Medicin e MEDICARE AWV (Initial)] Future Scheduled FLU VACCINE > 6 [facility] Test MONTHS [code = FLU of Medici ne VACCINE > 6 MONTHS] Future Scheduled FALL SCREEN [code = [employer] Test FALL SCREEN] of Medicine Future Scheduled TETANUS SHOT (ADULT) [employer] Test [code = TETANUS SHOT of Medi cine (ADULT)] Future Scheduled Hepatitis C screening [employer] Test (procedure) [code = of Medic ine 155567771] Future Scheduled ZOSTER VACCINE (1 of [employer] Test 2) [code = ZOSTER of Medicin e VACCINE (1 of 2)] Future Scheduled Abdominal aortic [facility] Test aneurysm screening of Medici ne (procedure) [code = 471678161] Future Scheduled PNEUMOVAX >=65 [facility] Test (PPSV23) [code = of Medicine PNEUMOVAX >=65 (PPSV23)] Future Scheduled Screening for [facility] Test malignant neoplasm of of Med icine colon (procedure) [code = 048659113] Future Scheduled FLU VACCINE > 6 [facility] Test MONTHS [code = FLU of Medici ne VACCINE > 6 MONTHS] Future Scheduled FALL SCREEN [code = [employer] Test FALL SCREEN] of Medicine Future Scheduled IMMUNOGLOBULIN Ordered: [facility] Test PROFILE [code = 03/04/2019 of Medicine 63913-8] Future Scheduled MEDICARE AWV [code = [employer] Test MEDICARE AWV] of Medicine Future Scheduled TETANUS SHOT (ADULT) [employer] Test [code = TETANUS SHOT of Medi cine (ADULT)] Future Scheduled HEPATITIS C SCREENING [employer] Test [code = HEPATITIS C of Medic ine SCREENING] Future Scheduled AAA Screen [code = [employer] Test AAA Screen] of Medicine Future Scheduled PNEUMOVAX >=65 [facility] Test (PPSV23) [code = of Medicine PNEUMOVAX >=65 (PPSV23)] Future Scheduled PREVNAR >= 65 (PCV13) [employer] Test [code = PREVNAR >= 65 of Med icine (PCV13)] Future Scheduled COLON CANCER [facility] [employer] Test SCREENING: of Medicine COLONOSCOPY [code = COLON CANCER SCREENING: COLONOSCOPY] Future Scheduled FLU VACCINE > 6 [employer] [facility] [employer] Test MONTHS [code = FLU of Medici ne VACCINE > 6 MONTHS] Future Scheduled FALL SCREEN [code = [employer] Test FALL SCREEN] of Medicine Future Scheduled CULTURE, 2 Occurrences [facility] Test URINE/SENSITIVITY ON starting of Medi cine ALL [code = 71791-0] 10/12/2019 until 10/11/2020 Future Scheduled US RENAL BILATERAL 1 Occurrences [employer] Test [code = 70009] starting of Medicine 10/12/2019 until 10/11/2020 Future Scheduled VIDEO URODYNAMICS 1 Occurrences [facility] r [place] Test [code = 98400] starting of Medicine 10/12/2019 until 10/11/2020 Encounters Start End Encounter Admission Attending Care Care Encounter Source Date/Time Date/Time Type Type Clinicians Facility Department ID 2021-05-05 Outpatient [facility] Surgery [id number] [facility] 19:55:29 , [facility] 2021-05-05 Outpatient [facility] Surgery [id number] [facility] 03:19:02 , [facility] 2021-07-03 2021-07-03 Outpatient [facility] [id number] [facility] 00:00:00 00:00:00 SP 800 Method i 2021-04-26 2021-04-26 Outpatient [facility] [id number] [facility] 07:28:23 23:59:00 Jo e of Medicin e 2021-04-16 2021-04-16 Office CarinaPHONG 1.2.840.114 [id number] [facility] 09:55:21 10:48:40 Visit Polina Baptiste AMBULATOR 350.1.13.21 College Y 0.2.7.2.686 [id number] Medi geno 830 e 2021-04-04 2021-04-04 Outpatient [facility] [id number] [facility] 00:00:00 00:00:00 SP [address] 2021-03-08 2021-03-08 Outpatient [facility] [id number] [facility] 00:00:00 00:00:00 SP [address] 2021-02-22 2021-02-22 Outpatient [facility] [id number] [facility] 00:00:00 00:00:00 2021-02-06 2021-02-06 Outpatient BURK, [facility] [id number] [facility] 00:00:00 00:00:00 JASON [address] 2021-02-06 2021-02-06 Outpatient PAUMA, [facility] [id number] [facility] 00:00:00 00:00:00 SP [address] 2021-01-31 2021-01-31 Outpatient PAUMA, [facility] [id number] [facility] 00:00:00 00:00:00 SP [address] 2021-01-31 2021-01-31 Outpatient PAUMA, [facility] [id number] [facility] 00:00:00 00:00:00 SP [address] 2021-01-18 2021-01-18 Outpatient PAUMA, [facility] [id number] [facility] 00:00:00 00:00:00 SP [address] 2021-01-10 2021-01-10 Outpatient PAUMA, [facility] [id number] [facility] 00:00:00 00:00:00 SP [address] 2020-12-28 2020-12-28 Outpatient RAMI, CHANDRAKANT [facility] [id number] Premier 00:00:00 00:00:[address] 2020-12-28 2020-12-28 Outpatient PAUMA, [facility] [id number] [facility] 00:00:00 00:00:00 SP 011 Method i 2020-12-19 2020-12-19 Outpatient [facility] [id number] [address] [place] [address] 00:00:00 00:00:00 2020-12-18 2020-12-18 Office [facility] 1.2.840.114 [id number] [facility] 08:49:46 14:46:06 Visit , Lee AMBULATOR 350.1.13.21 College Y 0.2.7.2.686 [id number] [facility] 300 e 2020-12-18 2020-12-18 Outpatient PAUMA, [facility] [id number] [facility] 00:00:00 00:00:00 SP [address] 2020-12-15 2020-12-15 Outpatient EL [facility] [id number] [facility] 00:00:00 00:00:00 2020-12-15 2020-12-15 Outpatient STEPHENIE [facility] [id number] [facility] 00:00:00 00:00:00 2020-11-13 2020-11-13 Outpatient CARINA [facility] [id number] [facility] 00:00:00 00:00:00 POLINA 2020-11-13 2020-11-13 Outpatient STEPHENIE LIM [facility] [id number] [facility] 00:00:00 00:00:00 POLINA 2020-11-09 2020-11-09 Office Carina [facility] 1.2.840.[id number] [place] [address] 10:07:36 16:15:46 Visit Polina Baptiste AMBULATOR 350.1.13.21 [facility] 0.2.7.2.686 [id number] [facility] 830 e 2020-10-31 2020-11-03 [facility] [id number] [facility] 00:00:00 00:00:00 WARREN 654 Method i 2020-10-18 2020-10-18 [id number] [facility] 00:00:00 00:00:00 JASON 806 Method i 2020-10-13 2020-10-13 [facility] [id number] [facility] 00:00:00 00:00:00 JASON 333 Method i 2020-10-13 2020-10-13 [facility] [id number] [facility] 00:00:00 00:00:00 JASON 716 Method i 2020-10-06 2020-10-06 Laboratory Lab, [facility] [place] 1.2.840.114 [id number] 14:30:14 14:50:14 Only Fam Pob I Health 350.1.13.10 [place] 4.2.7.2.686 Professio [id number] nal 044 Office [facility] 2020-10-06 2020-10-06 Laboratory Lab, Adc Fam Pob I [facility] 1.2. 840.114 [id number] [facility] 14:30:14 14:50:14 Only Anene, [facility] 350.1.13.10 ity of [place] 4.2.7.2.686 Lino as Maria Alejandraio [id number] [address] Office [facility] 2020-10-06 2020-10-06 Outpatient Vandana [facility] [id number] [facility] 14:40:00 14:40:00 SANJUANITA ity of [facility] 2020-10-06 2020-10-06 Letter Doctor DORON 1.2.840.114 [id number] 00:00:00 00:00:00 (Out) Unassigned, NISHANT 350.1.13.10 [facility] 4.2.7.2.686 [id number] [facility] 2020-10-06 2020-10-06 Letter Doctor DORON 1.2.840.114 [id number] 00:00:00 00:00:00 (Out) Unassigned, NISHANT 350.1.13.10 [facility] 4.2.7.2.686 [id number] [facility] 2020-10-06 2020-10-06 Letter Doctor DORON 1.2.840.114 [id number] [facility] 00:00:00 00:00:00 (Out) Unassigned, NISHANT 350.1.13.10 ity of [facility] 4.2.7.2.686 Lino as [id number] [address] 2020-10-06 2020-10-06 Letter Doctor SAL 1.2.840.114 [id number] [facility] 00:00:00 00:00:00 (Out) Unassigned, NISHANT 350.1.13.10 ity of [facility] 4.2.7.2.686 Lino as [phone] [address] 2020-10-05 2020-10-05 Outpatient [facility] [id number] [facility] 00:00:00 00:00:00 2020-10-05 2020-10-05 Outpatient ELVA KHOURY [facility] [id number] Premier 00:00:00 00:00:[address] 2020-09-27 2020-09-27 Office PHONG Lim 1.2.840.114 [id number] [facility] 09:48:17 11:45:41 Visit Polina Baptiste AMBULATOR 350.1.13.21 College Y 0.2.7.2.686 of [id number] [facility] geno 830 e 2020-09-25 2020-09-25 Office Ayaka [facility] 1.2.840.114 [id number] [facility] 08:52:56 11:06:52 Visit , Lee AMBULATOR 350.1.13.21 College Y 0.2.7.2.686 of [id number] [facility] geno 300 e 2020-09-23 2020-09-23 Outpatient GUSTAVO [facility] [id number] [facility] 00:00:00 00:00:00 TAN[address] 2020-09-13 2020-09-13 Outpatient CARINA [facility] [id number] SLE 00:00:00 00:00:00 POLINA 2020-09-13 2020-09-13 [facility] [id number] [facility] 00:00:00 00:00:00 POLINA 2020-09-08 2020-09-08 Outpatient STEPHENIE [facility] SLE [id number] [facility] 00:00:00 00:00:00 2020-09-02 2020-09-02 Outpatient ASKED, NO [facility] [id number] Premier 00:00:00 00:00:[address] 2020-08-08 2020-08-08 Outpatient BHARGAVI [facility] [id number] [facility] 00:00:00 00:00:00 JASON [address] 2020-07-13 2020-07-14 [id number] [facility] 00:00:00 00:00:00 JASON [address] 2020-07-10 2020-07-10 Outpatient BHARGAVI [facility] [id number] [facility] 00:00:00 00:00:00 JASON [address] 2020-07-04 2020-07-04 Outpatient BHARGAVI [facility] [id number] [facility] 00:00:00 00:00:00 JASON 053 Method i 2020-06-27 2020-06-27 Outpatient BHARGAVI [facility] [id number] [facility] 00:00:00 00:00:00 JASON [address] 2020-06-26 2020-06-26 Outpatient BHARGAVI, [facility] [id number] [facility] 00:00:00 00:00:00 JASON [address] 2020-06-20 2020-06-20 Outpatient BURK, [facility] [id number] [facility] 00:00:00 00:00:00 JASON [address] 2020-04-25 2020-04-25 Outpatient BHARGAVI, [facility] [id number] [facility] 00:00:00 00:00:00 JASON [address] 2020-03-07 2020-03-07 Outpatient PAUMA, [facility] [id number] [facility] 00:00:00 00:00:00 SP [address] 2019-10-12 2019-10-12 Office PHONG Valdez 1.2.840.114 [id number] [facility] 09:55:07 11:22:50 Visit Tanner AMBULATOR 350.1.13.21 College P Y 0.2.7.2.686 of [id number] Medi geno 300 e 2019-09-21 2019-09-21 Office PHONG Lim 1.2.840.114 [id number] [facility] 13:24:19 14:41:19 Visit Polina Baptiste AMBULATOR 350.1.13.21 College Y 0.2.7.2.686 of [id number] Medi geno 830 e 2019-08-23 2019-08-23 Office Ayaka DARLING 1.2.840.114 [id number] [facility] 11:42:57 14:11:07 Visit Lee AMBULATOR 350.1.13.21 College Y 0.2.7.2.686 of [id number] Medi geno 300 e 2019-06-08 2019-06-08 Outpatient BHARGAVI, [facility] [id number] [facility] 00:00:00 00:00:00 JASON [address] 2019-03-04 2019-03-04 Office PHONG Lim 1.2.840.114 [id number] [facility] 13:15:29 14:58:57 Visit Polina Baptiste AMBULATOR 350.1.13.21 College Y 0.2.7.2.686 of [id number] [facility] 830 e Results Test Description Test Time Test Comments Results Result Comments Source SARS-CoV-2 (COVID-19) RNA [Presence] in Respiratory sp ecimen by 2020-12-28 21:45:50 NETTE with probe detection Test Item Value Reference Range Interpretation Comme nts SARS-CoV-2 (COVID-19) RNA [Presence] in Respiratory Not detected No t-Detected specimen by NETTE with probe detection (test code = 05345-2) Whether patient is employed in a healthcare setting (test code = 14171-9) Whether the patient has symptoms related to condition of interest (test code = 58148-5) Patient was hospitalized because of this condition (test code = 76153-4) Whether the patient was admitted to intensive care unit (ICU) for condition of interest (test code = 59264-3) Whether patient resides in a congregate care setting (test code = 52493-1) FL, FLUORO, NON-SPECIFIC, UP TO 1 [id number] 09:10:00Reason for exam:- >RADIOFREQUENCY ABLATION [facility] JJ : 1945 Sex: MFluoroscopic unit utilized for a procedure performed in the OR. No interpretation was requested. Refer to the operative report for findings. Refer to PACS for patient radiation dose information.SARS-COV2/RT-PCR ([facility])2020-12-16 07:16:00 Test Item Value Reference Range Interpretation Comments SARS-COV2/RT-PCR (test Negative Not Detected, Negative, code = 7073066) See external report for linked test SARS-COV-2 PERFORMING LAB [facility] GE[facility] (test code = 5065447) Negative result for this test determines that [...] Staples SARS-CoV-2 assay.Fact Sheet for Healthcare Providers:https://www.molecular.staples/stephanie/ MW_HYXQ-TfJ-4_OHU_Rbez_Lfkue_39-361055.pdfFact Sheet for Healthcare Patients:https://www.molecular.ab penny/stephanie/VA_XACZ-IdG-9_Ibybwiu_Aclj_Vexsi_KS_87-025709F3.pdfPerforming Laboratory:[facility] [place] [address] URINALYSIS [id number] 15:50:00 Test Item Value Reference Range Interpretation Comments RBC UA (BEAKER) (test code = 519) 12 /HPF WBC UA (BEAKER) (test code = 520) 5 /HPF MUCUS (BEAKER) (test code = 1574) Many SQUAMOUS EPITHELIAL (BEAKER) (test 1 /HPF code = 516) HYALINE CASTS (BEAKER) (test code = 6 /LPF 514) CALCIUM OXALATE CRYSTALS (BEAKER) Few (test code = 518) Secondary English Teacher ID - techURINALYSIS WITH MICROSCOPIC IF [id number] 15:30:00 Test Item Value Reference Range Interpretation [...] = 463) SOURCE(BEAKER) (test code = 2795) Secondary English Teacher ID - [auto]BASIC METABOLIC [id number] 15:22:00 Test Item Value Reference Range Interpretation [...] S NOT APPLICABLE FOR DIALYSIS PATIEN TS. Secondary English Teacher ID - [id number] 15:07:00 Test Item Value Reference Range Interpretation Comments PARTIAL THROMBOPLASTIN TIME 32.0 seconds 22.5-36.0 (BEAKER) (test code = 760) PROTHROMBIN [id number] 15:06:00 Test Item Value Reference Range Interpretation Comments PROTIME (BEAKER) 13.9 seconds 11.9-14.2 (test code = 759) INR (BEAKER) (test 1.11 See_Comment [Automat ed message] code = 370) The system [employer] generated this result transmitted ref erence range: [...] (test code = 2801) RAD, CHEST, 2 [id number] 14:53:00Reason for exam:->[facility]op [facility] : 1945 Sex: MFINAL REPORT [...] [place] Verified Date/Time: 12/15/2020 14:53:22 Reading Location: [facility] Radiology Reading Room KK-LiA-7 (COVID-19) RNA [Presence] in Respiratory specimen by NETTE with probe [id number] 15:18:59 Test Item Value Reference Range Interpretation Comments SARS-CoV-2 (COVID-19) RNA Not detected Not-Detected [Presence] in Respiratory specimen by NETTE with probe detection (test code = 32701-6) SARS-COV2/RT-PCR ([facility])2020-09-08 17:47:00 Test Item Value Reference Range Interpretation Comments SARS-COV2/RT-PCR (test Negative Not Detected, Negative, code = 7174337) See external report for linked test SARS-COV-2 PERFORMING LAB [facility] (test code = 8594198) Negative result for this test determines that [...] 564(g) of the Act.Fact Sheet for Healthcare Providers:https://www.[employer]/sites/default/files/product/documents/Fact_Shee g_WE_Ztmttwids_Ehgy_XHML-LkM-6.pdfFact Sheet for Healthcare Patients:https://www.[employer]/sites/default/files/product/ documents/Hydy_Hnzhj_Faaevhqb_Yipe_BOQA-DaQ-8.pdfPerforming Laboratory:[facility].[place], [place] [address]JPX, CHEST, 2 VIEWS 2020-09-08 12:56:00Reason for exam:->[facility]igeminal neural[facility]U JJ IRAIDA : 1945 Sex: MFINAL [...] ZENON LI MD on 09/08/2020 12:56 PMPROTHROMBIN [id number] 11:09:00 Test Item Value Reference Range Interpretation Comments PROTIME (BEAKER) 14.1 seconds 11.9-14.2 (test code = 759) INR (BEAKER) (test 1.12 See_Comment [Automat ed message] code = 370) The system BeMyGuest generated this result transmitted ref erence range: <=5.90. The reference range was not used to int erpret this result as normal/abnormal . Effective 12/23/2018: PT Reference Range ChangeNew: 11.9-14.2 Previous: 11.7- 14.7RECOMMENDED COUMADIN/WARFARIN INR THERAPY RANGESSTANDARD DOSE: 2.0-3.0 Includes: PROPHYLAXIS for venous thrombosis, systemic embolization; TREATMENT for venous thrombosis and/or pulmonary embolus.HIGH RISK: Target INR is2.5-3.5 for patients wiht mechanical heart valves.[id number] 11:09:00 Test Item Value Reference Range Interpretation Comments PARTIAL THROMBOPLASTIN TIME 25.8 seconds 22.5-36.0 (BEAKER) (test code = 760) BASIC METABOLIC [id number] 11:07:00 Test Item Value Reference Range Interpretation [...] S NOT APPLICABLE FOR DIALYSIS PATIEN TS. Secondary English Teacher ID - PIAYA LCBC W/PLT COUNT & AUTO [id number] 10:57:00 Test Item Value Reference Range Interpretation [...] in Respiratory specimen by NETTE with probe [id number] 20:54:07 Test Item Value Reference Range Interpretation Comments SARS-CoV-2 (COVID-19) RNA Not detected Not-Detected [Presence] in Respiratory specimen by NETTE with probe detection (test code = 98824-0) FL, FLUORO, NON-SPECIFIC, UP TO 1 [id number] 09:54:00Reason for exam:- >RADIOFREQUENCY ABLATION OF TRIGEMINAL NERVEFINAL REPORT A fluoroscopic unit was utilized for a procedure performed in the operating room. No interpretation was requested. Please refer to the operative report regarding findings. Please refer to PACS for patient radiation dose information. Signed: Ace Longo MDReport Verified Date/Time: 08/31/2019 09:54:29 Reading Location: [facility] Radiology Reading Room BASIC METABOLIC [id number] 07:46:00 Test Item Value Reference Range Interpretation [...] S NOT APPLICABLE FOR DIALYSIS PATIEN TS. Secondary English Teacher ID - ZORAIDA [id number] 07:13:00 Test Item Value Reference Range Interpretation Comments PARTIAL THROMBOPLASTIN TIME 33.7 seconds 22.5-36.0 (BEAKER) (test code = 760) PROTHROMBIN [id number] 07:12:00 Test Item Value Reference Range Interpretation [...] mechanical heart valves.CBC W/PLT COUNT & AUTO [id number] 07:06:00 Test Item Value Reference Range Interpretation [...] MR, SPINE, CERVICAL, WITHOUT / WITH IV [id number] 11:05:00FINAL REPORT Exam: Cervical spine MRI without with IV contrastHistory: 73-year-old male with multiple sclerosisComparison studies: Cervical spine MRI 03/26/2018. Technique:Precontrast sagittal T1, T2 and inversion recovery, axial T1 and T2 cervical and thoracic. Postcontrast axial and sagittal K6Cyumubrjfih contrast: 9 cc of Gadavist. Findings: Several pulse sequences are somewhat limited by artifacts related to patient motion. Spinal Cord: Normal in size and signal from the foramen magnum through T1. T2 lesion load: No gross new lesions. Multiple scattered demyelinating lesions. 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 lesions are grossly unchanged and described as [...] MDReport Verified Date/Time: 02/16/2019 11:05:03 Reading Location: [facility] Room [address] [place] [address] [facility] signed by: Yumiko Abad on 02/16/2019 11:05 AMMR, BRAIN, WITHOUT / WITH IV [id number] 10:50:00FINAL REPORT Exam: Brain MRI without with [...] MDReport Verified Date/Time: 02/16/2019 10:50:04 Reading Location: [facility] Reading Room [address] [place] [address] POCT-CREATININE 2019-02-15 10:10:00 Test Item Value Reference Range Interpretation Comments POC-CREATININE 1.2 mg/dL 0.6-1.3 TESTED AT [facility] 7200 ([facility]) (test VIKI D G A code = 1859) [facility] 7703 0 POC-EGFR 60 mL/min/1.73M2 ([facility]) (test code = 1860) [place], SOCIAL WORK LECTURER IN OR/30 MINUTE [id number] 13:40:00Reason for exam:- >Trigeminal NeuralgiaFINAL REPORT Fluoroscopy 5 views intraoperative 07/17/2018 1:37 PM CLINICAL HISTORY: Instrument localization COMPARISON: None available IMPRESSION: Please correlate imaging report findings with the procedure note prepared by Dr. Duran, as an intra-procedure imaging consultation was not requested. Reported fluoroscopy time: 49.4 seconds. Signed: Christopher Sarkar Verified Date/Time: 07/17/2018 13:40:25 Reading Location: [facility] Radiology Reading Room
[2021-08-21] MEDS: DABIGATRAN 150 MG CAP PO SCH ×2 (20:00→22:26)
[2021-08-21 20:06] LABS: Urine Appearance CLEAR (Clear); Urine Blood NEGATIVE (Negative); Urine Color DK YELLOW (Yellow); Urine Glucose NEGATIVE (Negative); Urine Protein NEGATIVE (Negative); Urine Specific Gravity 1.025 (1.005-1.030); Urine Urobilinogen 0.2 mg/dL (0.2-1.0); Urine pH 5.5 (5.0-7.0)
[2021-08-21] MEDS ORDERED: ONDANSETRON 4 MG (ODT) TAB PO PRN (20:10)
[2021-08-21 20:20] LABS: Urine Bilirubin NEGATIVE (Negative)
[2021-08-21 20:37] LABS: Urine Bacteria <20 /HPF (NONE SEEN); Urine Mucus 1+ /HPF (NONE SEEN); Urine Urothelial Cells <5 /HPF (NONE SEEN)
[2021-08-21] MEDS: OXcarbazepine 150 MG TAB PO SCH (20:49)
[2021-08-21] MEDS: GABAPENTIN 300 MG CAP PO SCH (20:49)
[2021-08-21] MEDS: VANCOMYCIN ORAL SOLN 250 MG/5 ML OSYR PO SCH (23:26)
[2021-08-22 05:00] LABS: Absolute Lymphocytes (CBC) 1.4 K/uL (0.7-4.9); Hematocrit 37.5 % (39.6-49.0); Lymphocytes % 18.6 % (15.3-44.8); MPV 7.7 fL (7.6-11.3); RBC Red Blood Cell Count 3.68 M/uL (4.33-5.43)
[2021-08-22] MEDS: VANCOMYCIN ORAL SOLN 250 MG/5 ML OSYR PO SCH ×4 (05:07→23:46)
[2021-08-22] MEDS: MIDODRINE HCL 5 MG TABLET PO SCH ×3 (05:07→17:33)
[2021-08-22] MEDS: PANTOPRAZOLE 40MG TABLET PO SCH (05:08)
[2021-08-22 05:27] LABS: Albumin 2.9 g/dL (3.4-5.0); Magnesium 2.1 mg/dL (1.8-2.4); Potassium 3.7 mmol/L (3.5-5.1); Prealbumin 20.9 mg/dL (20-40)
[2021-08-22] MEDS ORDERED: PNEUMOCOCCAL VACCINE 0.5 ML IMVAC ONE (06:00)
[2021-08-22] MEDS ORDERED: LEVOTHYROXINE SOD 0.1 MG TAB PO SCH (06:30)
[2021-08-22] MEDS: LEVOTHYROXINE SOD 0.1 MG TAB PO SCH (07:10)
[2021-08-22] MEDS: LEVOTHYROXINE SOD 0.075 MG TAB PO SCH (07:10)
[2021-08-22] MEDS: MAGNESIUM HYDROXIDE 8% 30 ML PO ONE ×2 (07:34→15:03)
[2021-08-22] MEDS: AMLODIPINE 2.5 MG TAB PO SCH ×2 (08:00→20:00)
[2021-08-22] MEDS: HYDROCORTISONE ACETATE 25MG SUPP PR SCH ×2 (08:00→20:00)
[2021-08-22] MEDS ORDERED: AMLODIPINE 2.5 MG TAB PO SCH (08:00)
[2021-08-22] MEDS ORDERED: ROSUVASTATIN 10 MG TAB PO SCH (08:00)
[2021-08-22] MEDS: AMANTADINE 100 MG CAP PO SCH (08:33)
[2021-08-22] MEDS: ROSUVASTATIN 10 MG TAB PO SCH (08:34)
[2021-08-22] MEDS: DULOXETINE 20 MG CAP PO SCH (08:34)
[2021-08-22] MEDS: GABAPENTIN 300 MG CAP PO SCH ×3 (08:34→20:41)
[2021-08-22] MEDS: FLUDROCORTISONE 0.1 MG TAB PO SCH (08:35)
[2021-08-22] MEDS: VITAMIN D 5,000 UNIT CAP PO SCH (08:35)
[2021-08-22] MEDS: MESALAMINE 400 MG CAPSULE.DR PO SCH ×2 (08:36→20:00)
[2021-08-22] MEDS: DABIGATRAN 75 MG CAP PO SCH ×2 (08:37→20:40)
[2021-08-22] MEDS: OXcarbazepine 150 MG TAB PO SCH ×2 (08:37→20:41)
[2021-08-22] MEDS: modafiniL 100 MG TAB PO SCH (08:40)
[2021-08-22] MEDS ORDERED: AMIODARONE HCL 200 MG TAB PO SCH (09:00)
--- NOTE | 2021-08-22 15:49 | R.HP ---
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 board/care, assisted living, residential, transitional living) PRE-HOSPITAL LIVING WITH Family/Relatives ENCOUNTER PHYSICIAN: Dr. Federico Pizano M.D. 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 is a 75 yo Right-handed male. On 08/10/2021 Pt. presented to [facility] with sudden onset of right-side weakness. On 08/10/2021 he was admitted to [facility] with diagnosis CVA. His impairment category is Stroke 01 - Right Body (Left Brain) (01.2). Pre-morbidly, Pt. was independent/mod-I in Locomotion, Safety Awareness, Social Cognition, and Balanc e; and he had good Transfers Control, Self-Care, Communication, Endurance, and Sphincter Control. Currently, he has deficits of Locomotion, Social Cognition, Safety Awareness, Transfers Control, Cesar nce, Sphincter Control, Endurance, Self-Care, and Communication. Pt. is now referred to [facility] for acute in-patient rehabilitation in order to maximize patient's functional independence in activities of daily living, strength, ROM, and mobi lity. Patient has realistic goal of being discharged at assistance level 7-Ind to reside at Home with Fami ly/Relatives. MEDICATION ALLERGIES: No Known Drug Allergies (NKDA) ENVIRONMENTAL ALLERGIES: - Substance Allergies None Known - Other Allergies None Known PAST MEDICAL HISTORY: Multiple sclerosis (G35) Trigeminal neuralgia (G50.0) ALLERGIC RHINITIS Hypothyroidism, unspecified (E03.9) Impaired fasting glucose (R73.01) HYPERTENSION HYPERLIPIDEMIA CORONARY ARTERY DISEASE Chronic atrial fibrillation (I48.2) UNCERATIVE COLITIS DIVERTICULOSIS GASTROSOPHAGEAL REFLUX DISEASE benign prostatic hypertrophy (BPH) CHRONIC KIDNEY DISEASE PAST SURGICAL HISTORY: RADIOFREQUENCY ABLATION OF TRIGEMINAL NEURALGIA X 4 TONSILLECTOMY CORONARY ARTERY STENT PLACEMENT JUN 2020 BACK SURGERY ABLATION FOR ATRIAL FIB 2008 SOCIAL HISTORY: - Home Living Family/Relatives REVIEW OF SYSTEMS: - Gen No Chills Fatigue No Fever - Eyes No Double Vision No itchiness - ENMT Difficulty Swallowing - CVS No Chest Discomfort No Chest Pain Fatigue No Weight Gain - Resp No Cough No Shortness of Breath - GI Continent No Abdominal Pain No Constipation No Diarrhea - Continent No Kidney Pain No Painful Urination No Urinary Urgency - MSK No Joint Pain Muscle Cramps Stiffness - Skin No Itching No Rash No Suspicious Lesions - Neuro Coordination Difficulty No Difficulty with Concentration No Memory Loss No Seizures Weakness - Psych No Anxiety No Depression No HIV Exposure No Persistent Infections No Seasonal Allergies - Endo No Cold/Heat Intolerance No Excessive Hunger No Excessive Thirst No Excessive Urination PHYSICAL EXAM - Gen Alert and awake Lying in bed No apparent distress Oriented to: person, time, and place - Skin No breakdown Normacephalic - Eyes No abnormalities - Neck No abnormalities - CVS RRR - Chest No abnormalities - Resp Clear to auscultation - Abd Soft - GI Soft Deferred - No abnormalities - Ext No significant edema - MSK 4+/5 weakness in right lower extremity. - Neuro 4/5 strength right lower extremity. - Psych No abnormalities VITAL SIGNS Temperature: 97.8 F 08/21/21 SBP/DBP: 157/81 Pulse: 53 Resp: 17 NURSING: - Shower allowing shower - Bladder care per protocol - Skin care per protocol PRECAUTIONS: - Weight Bearing Precaution WBAT right LE ACTIVITIES OOB only with supervision QI SCORES: - Self-Care A. Eating 03-Partial/moderate assistance B. Oral hygiene 03-Partial/moderate assistance C. Toileting hygiene 02-Substantial/maximal assistance E. Shower/bathe self 02-Substantial/maximal assistance F. Upper body dressing 03-Partial/moderate assistance G. Lower body dressing 03-Partial/moderate assistance H. Putting on/taking off footwear 88-Not attempted due to medical condition or safety concerns - Mobility A. Roll left and right 03-Partial/moderate assistance B. Sit to lying 03-Partial/moderate assistance C. Lying to sitting on side of bed 03-Partial/moderate assistance D. Sit to stand 03-Partial/moderate assistance E. Chair/pes-fo-ajpdw transfer 03-Partial/moderate assistance F. Toilet transfer 03-Partial/moderate assistance G. Car transfer 88-Not attempted due to medical condition or safety concerns I. Walk 10 feet 03-Partial/moderate assistance J. Walk 50 feet with two turns 88-Not attempted due to medical condition or safety concerns K. Walk 150 feet 88-Not attempted due to medical condition or safety concerns L. Walking 10 feet on uneven surfaces 88-Not attempted due to medical condition or safety concerns M. 1 step (curb) 88-Not attempted due to medical condition or safety concerns N. 4 steps 88-Not attempted due to medical condition or safety concerns O. 12 steps 88-Not attempted due to medical condition or safety concerns P. Picking up object 03-Partial/moderate assistance R. Wheel 50 feet with two turns 88-Not attempted due to medical condition or safety concerns S. Wheel 150 feet 88-Not attempted due to medical condition or safety concerns - Bladder and Bowel Bladder continence Bowel continence - Endurance Fair - Balance Fair - Safety Awareness Fair CURRENT FUNC. DEFICITS: Self-Care, Mobility, Endurance, Balance, and Safety Awareness MEDICATIONS: - Other See attached MAR (Medication Administration Record) ASSESSMENT: Pt. is a 75 yo Right-handed male.On 08/10/2021 Pt. presented to [facility] with sudden o nset of right-side weakness.On 08/10/2021 he was admitted to [facility] with diagnosis C VA.His impairment category is Stroke 01 - Right Body (Left Brain) (01.2).Pre-morbidly, Pt. was indep endent/mod-I in Locomotion, Safety Awareness, Social Cognition, and Balance; and he had good Transfer s Control, Self-Care, Communication, Endurance, and Sphincter Control.Currently, he has deficits of L ocomotion, Social Cognition, Safety Awareness, Transfers Control, Balance, Sphincter Control, Enduran ce, Self-Care, and Communication.Pt. is now referred to [facility] for acute i n-patient rehabilitation in order to maximize patient's functional independence in activities of mallory y living, strength, ROM, and mobility.- Rehab Goal Patient has realistic goal of being discharged at assistance level 7-Ind to reside at Home with Fami ly/Relatives. for Dementia, TBI, Stroke, or others - Physical Therapy Gait dysfunction - to improve, our physical therapists will perform initial evaluation of pt's status upon admission and devise an individualized program for Gait Training, and Wheel Chair mobility Inability to transfer - to improve, our physical therapists will perform initial evaluation of pt's s tatus upon admission and devise an individualized program for Bed mobility Need for home safety evaluation - to improve, our physical therapists will perform initial evaluation of pt's status upon admission and devise an individualized program for Home Evaluation Need in caregiver upon discharge - to improve, our physical therapists will perform initial evaluatio n of pt's status upon admission and devise an individualized program for Caregiver Training New precaution - to improve, our physical therapists will perform initial evaluation of pt's status u lilliam admission and devise an individualized program for Patient precaution education Edema - to improve, our physical therapists will perform initial evaluation of pt's status upon admi ssion and devise an individualized program for Elevation Training, and Lymphedema Therapy Poor balance - to improve, our physical therapists will perform initial evaluation of pt's status upo n admission and devise an individualized program for Balance Training Poor endurance - to improve, our physical therapists will perform initial evaluation of pt's status u lilliam admission and devise an individualized program for Endurance Training Weakness - to improve, our physical therapists will perform initial evaluation of pt's status upon ad mission and devise an individualized program for Aquatic Therapy, Neuromuscular Reeducation, and Stre ngthening Achieving independence - to improve, our physical therapists will perform initial evaluation of pt's status upon admission and devise an individualized program for Community Reintegration Activities - Occupational Therapy ADL deficits - to improve, our occupation therapists will perform initial evaluation of pt's status u lilliam admission and devise an individualized program for Bathing, Bed mobility, Community Reintegration , Cooking, Dressing, Eating, Fine Motor Skills, Grooming, Homemaking, Kitchen Mobility, Laundry, Danuta ent Education, Safety Awareness, Splinting - Positioning, Transfers(Toilet, Tub, Shower), and Wheel C hair Management Cognitive deficits - to improve, our occupation therapists will perform initial evaluation of pt's st atus upon admission and devise an individualized program for Cognition - orientation Need for home care rn - to improve, our occupation therapists will perform initial evaluation of pt's s tatus upon admission and devise an individualized program for Caregiver Training Weakness - to improve, our occupation therapists will perform initial evaluation of pt's status upon admission and devise an individualized program for Aquatic Therapy, Balance, Endurance, UE ROM, and U E strengthening MEDICAL PLAN: - Diet Type Start Regular - Diet - Liquid Texture Start Regular - Tube Feed Start N/A - Bladder care per protocol - Weight Bearing Precaution WBAT right LE - Skin care per protocol - Other See attached MAR (Medication Administration Record) - Diet - Solid Texture Regular - Shower shower DISCHARGE PLAN: - Estimated Length of Stay (days) 17. - Consensus on plan Discharge plan has been discussed with primary caregiver. Patient/Family is in agreement with the luis n. Primary caregiver is in agreement with the plan. - Patient/Family Goals Return home independently. - Planned Living Setting Upon Discharge Home, to live with Family/Relatives. Transitional Living. 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
--- NOTE | 2021-08-22 21:23 | PAPE ---
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 Federico Pizano M.D. ADMISSION DIAGNOSIS: CVA ONSET DATE 08/10/2021 POST-ADMISSION FUNCTIONAL/MEDICAL STATUS: - Bladder Same accident frequency: 7-Ind - No accidents in the past 7 days - Bowel Same accident frequency: 7-Ind - No accidents in the past 7 days - Walking Same score based on distance walked: 0(N/A) Same score based on distance walked: 1(<=50ft) - Wheelchair Same score based on distance traveled: 0(N/A) STATUS CHANGE EVALUATION: No change in Functional or Medical Status is identified compared with Pre-Admission screening. PATIENT NEEDS CLOSE MEDICAL SUPERVISION BY A REHABILITATION PHYSICIAN FOR: Coordination of Treatment Team Medical and Co-Morbidity Management Pain Management DVT Management Bowel and Bladder Management PATIENT REQUIRES 24X7 REHAB NURSING FOR MEDICAL AND FUNCTIONAL MGT. OF THE FOLLOWING DEFICITS: Disease Management Medication Management Patient/Family Education Providing Safe Environment Bowel and Bladder Management Skin Integrity Pain Management PATIENT REQUIRES INTENSIVE, COORDINATED INTERDISCIPLINARY APPROACH TO REHAB: Arranging Home Equipment/Services Discharge Planning Family Intervention/Training Honing Job Setter/Case Management LIST OF IDENTIFIED AND POTENTIAL PROBLEMS: Alteration in leisure activities Bladder, Incontinence Bowel, Incontinence Infection, Actual or Potential Mobility Impaired Pain, Alteration in Comfort Self Care Deficit Skin Integrity, Actual or Potential Urinary Tract Infection (UTI), Actual or Potential RISK FOR COMPLICATIONS - CVA pt has history of CVA. Will monitor blood pressure and manage with medication. pt has elevated BP an d requires medical monitoring to manage and reduce reisk for CVA. - Skin Breakdown Nursing will assess skin daily using assessment tool and will place on Skin Breakdown Precautions as Indicated per protocol. - DVT PTT and INR will be monitored to effectively mitigate risk for development of DVT or PE while here. M edications will be administered as per MD. - Falls Educated pt on fall prevention strategies to reduce/eliminate fall risk. Patient will be evaluated fo r Fall Precautions and will be placed on Fall Precautions as indicated per protocol. - UTI Monitor for frequency, burning, discomfort, or incontinence. - Pain Medications will be given and the pain level reassessed. Clinical Staff may employ other methods such as: massage, distraction, decrease stimulus, etc. as needed. Educate patient on pain management stra tegies. Clinical staff will assess patient's pain level every shift per protocol to monitor for pain management effectiveness. PATIENT COULD BE AT RISK FOR COMPLICATIONS FROM ADVERSE MEDICAL CONDITIONS DUE TO HIS/HER COMORBIDITI ES AND THE RIGORS OF THE INTENSIVE REHABILLITATION PROGRAM. METHODS OR INTERVENTIONS TO AVOID COMPLIC ATIONS INCLUDE: - Deep Vein Thrombosis (DVT) Prophylaxis therapy for prevention . Sequential Compression Device (SCD). TE D Hose. - Bleeding Stroke patients assessed for lethargy or change in status. - Infection Clinical staff to assess and manage the signs and symptoms of infection including fever, redness, war mth, etc. - Urinary Tract Infection - Aspiration Clinical staff will assess and manage coughing, drooling, congestion. - Falls Patient will be evaluated for Fall Precautions and will be placed on Fall Precautions as indicated pe r protocol. - Skin Breakdown Nursing will assess skin daily using assessment tool and will place on Skin Breakdown Precautions as indicated per protocol. - Pain Clinical staff may employ non-medication methods such as massage, distraction, decrease stimulus, etc . as needed. Clinical staff will assess patient's pain level every shift per protocol to assess and e nsure pain management effectiveness. Medications will be given and the pain level re-assessed. PRELIMINARY PLAN OF CARE: - Physical Therapy Patient needs Physical Therapy for a daily minimum of 1.5 hours at least 5 out of 7 days, to improve: Mobility, Strengthening, Transfers, Stretching, ROM, Endurance, Ability to manage stairs, Gait, and Balance. - Speech Therapy Patient needs Speech Therapy for a daily minimum of 0.5 hours at least 5 out of 7 days, to improve: S wallowing, Cognition, Language Skills, and Compensatory Strategies. - Rehabilitation Nursing Patient requires 24x7 Rehabilitation Nursing for: Pain Issues, Identifying and preventing risk factor s, Monitoring and reporting current medical conditions, Assisting with ambulation and transfer, Alxey ting with all ADL-s, Teaching patients about disease process and medications, Family teaching, Provid ing safe environment, Bowel and Bladder Issues, Skin Integrity, and Medication Management. Patient needs Honing Job Setter and/or Case Management for: Discharge Planning, Arranging Home Equipmen t or Services, and Family Interventions. - Dietary and Nutrition Services Patient needs Dietary and Nutrition Services for: Adequate Nutrition, Nutritional Supplements, and Nu tritional Education. - Occupational Therapy Patient needs Occupational Therapy for a daily minimum of 1.5 hours at least 5 out of 7 days, to impr ove Activities of Daily Living, including: Eating, Grooming, Bathing, Dressing, Toileting, Toilet Tra nsfers, Community Reintegration, Higher functional activities, Adaptive Equipment, Splinting, Househo ld Tasks, and Other activities as determined. QI SCORES: - Self-Care A. Eating 03-Partial/moderate assistance B. Oral hygiene 03-Partial/moderate assistance C. Toileting hygiene 02-Substantial/maximal assistance E. Shower/bathe self 02-Substantial/maximal assistance F. Upper body dressing 03-Partial/moderate assistance G. Lower body dressing 03-Partial/moderate assistance H. Putting on/taking off footwear 88-Not attempted due to medical condition or safety concerns - Mobility A. Roll left and right 03-Partial/moderate assistance B. Sit to lying 03-Partial/moderate assistance C. Lying to sitting on side of bed 03-Partial/moderate assistance D. Sit to stand 03-Partial/moderate assistance E. Chair/mmo-ya-wflsp transfer 03-Partial/moderate assistance F. Toilet transfer 03-Partial/moderate assistance G. Car transfer 88-Not attempted due to medical condition or safety concerns I. Walk 10 feet 03-Partial/moderate assistance J. Walk 50 feet with two turns 88-Not attempted due to medical condition or safety concerns K. Walk 150 feet 88-Not attempted due to medical condition or safety concerns L. Walking 10 feet on uneven surfaces 88-Not attempted due to medical condition or safety concerns M. 1 step (curb) 88-Not attempted due to medical condition or safety concerns N. 4 steps 88-Not attempted due to medical condition or safety concerns O. 12 steps 88-Not attempted due to medical condition or safety concerns P. Picking up object 03-Partial/moderate assistance R. Wheel 50 feet with two turns 88-Not attempted due to medical condition or safety concerns S. Wheel 150 feet 88-Not attempted due to medical condition or safety concerns - Bladder and Bowel Bladder continence Bowel continence - Endurance Fair - Balance Fair - Safety Awareness Fair POTENTIAL FUNCTIONAL GOALS FOR PATIENT TO ACHIEVE BY DISCHARGE: - Safety Precaution Patient will remain free from falls or injury at time of discharge. - Bed Mobility Patient will perform bed mobility at 4-Rigo level of assistance. - Transfers Patient will complete transfers from bed to chair at 4-Rigo level of assistance. - Mobility Patient will ambulate 150 ft with 4-Rigo level of assistance with RW. PATIENT REHAB POTENTIAL Saeed JJ is able and expected to receive 3 hours of individualized therapy daily on at least 5 o f every 7 days Saeed JJ's prognosis for significant practical improvement within a reasonable period of time ap pears Good Expected level of measurable improvement will be of a practical value to Saeed JJ's functional c apacity or adaptations to impairments Has a viable Discharge Plan Medically appropriate; condition is sufficiently stable to participate in intensive rehab program DISCHARGE PLAN: - Estimated Length of Stay (days) 17. - Consensus on plan Discharge plan has been discussed with primary caregiver. Patient/Family is in agreement with the luis n. Primary caregiver is in agreement with the plan. - Patient/Family Goals Return home independently. - Planned Living Setting Upon Discharge Home, to live with Family/Relatives. Transitional Living. CONCLUSION ON REHABILITATION NECESSITY: I have evaluated patient's pre-admission functional status and, comparing it to the patient's post-ad mission functional status now, I conclude that the pre-admission assessment was accurate. Patient's c ondition on admission supports the medical necessity of admission to IRF. It is safe to proceed with patient's therapy program. 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
--- NOTE | 2021-08-23 02:15 | PN ---
Date of Progress Note: 08/22/2021 Subjective: Patient was seen this morning for followup. He was on rehab floor. Lying in bed, not i n any distress. Slept much better last night. Denies any new complaints. Objective: Vital Signs: Reviewed. HEENT: Unremarkable. Lungs: Clear to auscultation. Heart: Sounds normal. Abdomen: Soft. Bowel sounds normal. No guarding, rigidity, tenderness, or distention. Extremities: No leg edema. Impression: 1.Clostridium difficile colitis. 2.Stroke with right-sided hemiparesis. 3.Hypertension. 4.Orthostatic hypotension. 5.Paroxysmal atrial fibrillation. 6.Chronic anticoagulation therapy. PLAN: We will go ahead and continue current medication. Continue current anticoagulation therapy, a ntibiotic, which is vancomycin, and we will continue midodrine and fludrocortisone. I will see him t omorrow for followup. The patient has not had a bowel movement in 2-3 days now and is requesting salo ething for that, so we will go ahead and give milk of magnesia 1-time dose today. RADHA/MODL Voice ID: [id number] Report ID: [id number]
[2021-08-23 05:08] LABS: Absolute Lymphocytes (CBC) 1.3 K/uL (0.7-4.9); Lymphocytes % 15.3 % (15.3-44.8); MPV 7.7 fL (7.6-11.3)
[2021-08-23 05:12] LABS: Magnesium 2.2 mg/dL (1.8-2.4)
[2021-08-23] MEDS: VANCOMYCIN ORAL SOLN 250 MG/5 ML OSYR PO SCH ×4 (05:14→23:21)
[2021-08-23] MEDS: MIDODRINE HCL 5 MG TABLET PO SCH ×3 (05:15→17:13)
[2021-08-23] MEDS: LEVOTHYROXINE SOD 0.1 MG TAB PO SCH (06:40)
[2021-08-23] MEDS: PANTOPRAZOLE 40MG TABLET PO SCH (06:40)
[2021-08-23] MEDS: LEVOTHYROXINE SOD 0.075 MG TAB PO SCH (06:40)
[2021-08-23] MEDS: HYDROCORTISONE ACETATE 25MG SUPP PR SCH ×2 (08:00→19:11)
[2021-08-23] MEDS: AMLODIPINE 2.5 MG TAB PO SCH ×2 (08:00→19:27)
[2021-08-23] MEDS: DULOXETINE 20 MG CAP PO SCH (08:11)
[2021-08-23] MEDS: GABAPENTIN 300 MG CAP PO SCH ×3 (08:11→19:27)
[2021-08-23] MEDS: OXcarbazepine 150 MG TAB PO SCH ×2 (08:11→19:27)
[2021-08-23] MEDS: VITAMIN D 5,000 UNIT CAP PO SCH (08:11)
[2021-08-23] MEDS: AMANTADINE 100 MG CAP PO SCH (08:11)
[2021-08-23] MEDS: ROSUVASTATIN 10 MG TAB PO SCH (08:11)
[2021-08-23] MEDS: AMIODARONE HCL 200 MG TAB PO SCH (08:12)
[2021-08-23] MEDS: modafiniL 100 MG TAB PO SCH (08:12)
[2021-08-23] MEDS: FLUDROCORTISONE 0.1 MG TAB PO SCH (08:12)
[2021-08-23] MEDS: DABIGATRAN 75 MG CAP PO SCH ×2 (08:13→19:27)
[2021-08-23] MEDS: MESALAMINE 400 MG CAPSULE.DR PO SCH ×2 (11:33→19:27)
--- NOTE | 2021-08-23 19:13 | R.PN ---
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 Pt denied any Shortness of Breath. Ambulated 250' with contact guard to standby assistance with a rolling walker. WBC 8.2, Hgb 12.8. VITAL SIGNS Temperature: 98.1 F SBP/DBP: 166/68 lying, 83/57 standing Pulse: 54 lying, 79 standing Resp: 16 MEDICATION ALLERGIES: No Known Drug Allergies (NKDA) ENVIRONMENTAL ALLERGIES: - Substance Allergies None Known - Other Allergies None Known NURSING: - Shower allowing shower - Bladder care per protocol - Skin care per protocol PRECAUTIONS: - Weight Bearing Precaution WBAT right LE ACTIVITIES OOB only with supervision THERAPIES: - Dietary and Nutrition Adequate Nutrition. Nutritional Education. Nutritional Supplements. - Occupational Therapy Cognitive Retraining. Evaluate and Treat. Transfer Training. ADL Training. Adaptive Equipment. UE Str engthening. Household Tasks. Patient/Family Education. Safety Awareness. Visual Perceptual Training. - Speech Therapy Cognitive Training. Expressive Language Skills. Memory Strategies. Receptive Language Skills. Speech Intelligibility Training. - Physical Therapy Gait Training. Evaluate and Treat. LE Strengthening. Patient/Family Education. Transfer Training. Mob ility Training. Safety Awareness. Balance Training. PHYSICAL EXAM - Gen Alert and awake Lying in bed No apparent distress Oriented to: person, time, and place - Skin No breakdown Normacephalic - Eyes No abnormalities - Neck No abnormalities - CVS RRR - Chest No abnormalities - Resp Clear to auscultation - Abd Soft - GI Soft Deferred - No abnormalities - Ext No significant edema - MSK 4+/5 weakness in right lower extremity. - Neuro 4/5 strength right lower extremity. - Psych No abnormalities ASSESSMENT: Pt. is a 75 yo Right-handed male.On 08/10/2021 Pt. presented to [facility] with sudden o nset of right-side weakness.On 08/10/2021 he was admitted to [facility] with diagnosis C VA.His impairment category is Stroke 01 - Right Body (Left Brain) (01.2).Pre-morbidly, Pt. was indep endent/mod-I in Locomotion, Safety Awareness, Social Cognition, and Balance; and he had good Transfer s Control, Self-Care, Communication, Endurance, and Sphincter Control.Currently, he has deficits of L ocomotion, Social Cognition, Safety Awareness, Transfers Control, Balance, Sphincter Control, Enduran ce, Self-Care, and Communication.Pt. is now [facility] to [facility] for acute i n-patient rehabilitation in order to maximize patient's functional independence in activities of mallory y living, strength, ROM, and mobility.- Rehab Goal Patient has realistic goal of being discharged at assistance level 7-Ind to reside at Home with Fami ly/Relatives. MDM/PLAN: - Physical Therapy Gait dysfunction - to improve, our physical therapists will perform initial evaluation of pt's statu s upon admission and devise an individualized program for Gait Training, and Wheel Chair mobility Inability to transfer - to improve, our physical therapists will perform initial evaluation of pt's status upon admission and devise an individualized program for Bed mobility Need for home safety evaluation - to improve, our physical therapists will perform initial evaluatio n of pt's status upon admission and devise an individualized program for Home Evaluation Need in caregiver upon discharge - to improve, our physical therapists will perform initial evaluati on of pt's status upon admission and devise an individualized program for Caregiver Training New precaution - to improve, our physical therapists will perform initial evaluation of pt's status upon admission and devise an individualized program for Patient precaution education Edema - to improve, our physical therapists will perform initial evaluation of pt's status upon admis darin and devise an individualized program for Elevation Training, and Lymphedema Therapy Poor balance - to improve, our physical therapists will perform initial evaluation of pt's status up on admission and devise an individualized program for Balance Training Poor endurance - to improve, our physical therapists will perform initial evaluation of pt's status upon admission and devise an individualized program for Endurance Training Weakness - to improve, our physical therapists will perform initial evaluation of pt's status upon a dmission and devise an individualized program for Aquatic Therapy, Neuromuscular Reeducation, and Str engthening Achieving independence - to improve, our physical therapists will perform initial evaluation of pt's status upon admission and devise an individualized program for Community Reintegration Activities - Occupational Therapy ADL deficits - to improve, our occupation therapists will perform initial evaluation of pt's status upon admission and devise an individualized program for Bathing, Bed mobility, Community Reintegratio n, Cooking, Dressing, Eating, Fine Motor Skills, Grooming, Homemaking, Kitchen Mobility, Laundry, Pat ient Education, Safety Awareness, Splinting - Positioning, Transfers(Toilet, Tub, Shower), and Wheel Chair Management Cognitive deficits - to improve, our occupation therapists will perform initial evaluation of pt's s tatus upon admission and devise an individualized program for Cognition - orientation 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 for furnace caretaker - to improve, our occupation therapists will perform initial evaluation of pt's status upon admission and devise an individualized program for Caregiver Training Weakness - to improve, our occupation therapists will perform initial evaluation of pt's status upon admission and devise an individualized program for Aquatic Therapy, Balance, Endurance, UE ROM, and UE strengthening - Other See attached MAR (Medication Administration Record) - Diet Type Continue Regular - Diet - Liquid Texture Continue Regular - Tube Feed Continue N/A - Bladder care per protocol - Weight Bearing Precaution WBAT right LE - Skin care per protocol - Diet - Solid Texture Continue Regular - Shower allowing shower for Dementia, TBI, Stroke, or others FUNCTIONAL STATUS: UPDATED AT WEEKLY TEAM CONFERENCE - Bladder Same accident frequency: 7-Ind - No accidents in the past 7 days - Bowel Same accident frequency: 7-Ind - No accidents in the past 7 days - Walking Same score based on distance walked: 0(N/A) Same score based on distance walked: 1(<=50ft) - Wheelchair Same score based on distance traveled: 0(N/A) FUNCTIONAL STATUS: - Self-Care A. Eating Tuyet B. Grooming sup C. Bathing Rigo D. Dressing - Upper Rigo E. Dressing - Lower modA F. Toileting Rigo - Sphincter Control G. Bladder control sup H. Bowel control sup - Transfers Control I. Bed/Chair/Wheelchair Rigo J. Toilet sup K. Tub/Shower Rigo - Locomotion L. Walk/Wheelchair (B) Rigo M. Stairs modA - Communication N. Comprehension (B) Tuyet O. Expression (B) Tuyet - Social Cognition P. Social Interaction Ind Q. Problem Solving Tuyet R. Memory Tuyet - Endurance Good - Balance Fair - Safety Awareness Fair QI SCORES: - Self-Care A. Eating 03-Partial/moderate assistance B. Oral hygiene 03-Partial/moderate assistance C. Toileting hygiene 02-Substantial/maximal assistance E. Shower/bathe self 02-Substantial/maximal assistance F. Upper body dressing 03-Partial/moderate assistance G. Lower body dressing 03-Partial/moderate assistance H. Putting on/taking off footwear 88-Not attempted due to medical condition or safety concerns - Mobility A. Roll left and right 03-Partial/moderate assistance B. Sit to lying 03-Partial/moderate assistance C. Lying to sitting on side of bed 03-Partial/moderate assistance D. Sit to stand 03-Partial/moderate assistance E. Chair/ifm-ua-iwqjh transfer 03-Partial/moderate assistance F. Toilet transfer 03-Partial/moderate assistance G. Car transfer 88-Not attempted due to medical condition or safety concerns I. Walk 10 feet 03-Partial/moderate assistance J. Walk 50 feet with two turns 88-Not attempted due to medical condition or safety concerns K. Walk 150 feet 88-Not attempted due to medical condition or safety concerns L. Walking 10 feet on uneven surfaces 88-Not attempted due to medical condition or safety concerns M. 1 step (curb) 88-Not attempted due to medical condition or safety concerns N. 4 steps 88-Not attempted due to medical condition or safety concerns O. 12 steps 88-Not attempted due to medical condition or safety concerns P. Picking up object 03-Partial/moderate assistance R. Wheel 50 feet with two turns 88-Not attempted due to medical condition or safety concerns S. Wheel 150 feet 88-Not attempted due to medical condition or safety concerns - Bladder and Bowel Bladder continence Bowel continence - Endurance Fair - Balance Fair - Safety Awareness Fair [facility] 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
--- NOTE | 2021-08-23 21:50 | PN ---
Date of Progress Note: 08/23/2021 Subjective: Patient was seen this morning on the rehab floor, lying in bed, not in distress. Objective: Vital Signs: Reviewed. He did have bowel movement yesterday without using milk of magne amor. HEENT: Unremarkable. Lungs: Clear to auscultation. Heart: Sounds normal. Abdomen: Soft. Bowel sounds normal. No guarding, rigidity, tenderness, distention. Extremities: No leg edema. Neuro Exam: Right-sided hemiparesis unchanged from before. Impression: 1.Stroke. 2.Paroxysmal atrial fibrillation. 3.Hypertension. 4.Clostridium difficile colitis. 5.Multiple sclerosis. 6.Orthostatic hypotension. Plan: We will go ahead and continue current oral vancomycin. Continue physical therapy under jimmy ce of Dr. Pizano. We will go ahead and continue his antihypertensive medication amlodipine and hol d if systolic blood pressure less than 160. We will also continue midodrine and fludrocortisone. I have discussed details with Dr. Briceno, who will be covering this patient in my absence. RADHA/MODL Voice ID: [id number] Report ID: [id number]
[2021-08-24] MEDS: MIDODRINE HCL 5 MG TABLET PO SCH ×3 (05:07→17:00)
[2021-08-24] MEDS: PANTOPRAZOLE 40MG TABLET PO SCH (05:07)
[2021-08-24] MEDS: VANCOMYCIN ORAL SOLN 250 MG/5 ML OSYR PO SCH ×4 (05:07→23:20)
[2021-08-24 06:51] LABS: Potassium 3.7 mmol/L (3.5-5.1); Prealbumin 23.8 mg/dL (20-40)
[2021-08-24] MEDS: HYDROCORTISONE ACETATE 25MG SUPP PR SCH ×3 (08:00→20:00)
[2021-08-24] MEDS: OXcarbazepine 150 MG TAB PO SCH ×2 (08:38→19:32)
[2021-08-24] MEDS: GABAPENTIN 300 MG CAP PO SCH ×3 (08:38→19:44)
[2021-08-24] MEDS: DULOXETINE 20 MG CAP PO SCH (08:40)
[2021-08-24] MEDS: FLUDROCORTISONE 0.1 MG TAB PO SCH (08:40)
[2021-08-24] MEDS: LEVOTHYROXINE SOD 0.1 MG TAB PO SCH (08:40)
[2021-08-24] MEDS: AMLODIPINE 2.5 MG TAB PO SCH ×3 (08:40→19:40)
[2021-08-24] MEDS: ROSUVASTATIN 10 MG TAB PO SCH (08:41)
[2021-08-24] MEDS: AMANTADINE 100 MG CAP PO SCH (08:41)
[2021-08-24] MEDS: MESALAMINE 400 MG CAPSULE.DR PO SCH ×2 (08:42→19:31)
[2021-08-24] MEDS: VITAMIN D 5,000 UNIT CAP PO SCH (08:42)
[2021-08-24] MEDS: LEVOTHYROXINE SOD 0.075 MG TAB PO SCH (08:42)
[2021-08-24] MEDS: modafiniL 100 MG TAB PO SCH (08:42)
[2021-08-24] MEDS: DABIGATRAN 75 MG CAP PO SCH ×2 (08:43→19:31)
[2021-08-24] MEDS: AMIODARONE HCL 200 MG TAB PO SCH (08:44)
--- NOTE | 2021-08-24 10:13 | P.RH.PN ---
Estimated Length of Stay: 14 Expected Discharge Date: 09/04/21 Discharge Disposition Plan: Home Family Support: Yes Mcc Goal: Mobility, Transfers, Self Care Vital Signs: Last Vital Signs Temp 97.6 F 08/24/21 08:00 Pulse 48 L 08/24/21 08:40 Resp 14 08/24/21 08:00 BP 170/88 H 08/24/21 08:40 Pulse Ox 98 08/24/21 08:00 Laboratory: Laboratory Last Values WBC 8.20 K/uL (4.3-10.9) 08/23/21 04:43 RBC 3.70 M/uL (4.33-5.43) L 08/23/21 04:43 Hgb 12.8 g/dL (13.6-17.9) L 08/23/21 04:43 Hct 38.0 % (39.6-49.0) L 08/23/21 04:43 MCV 102.9 fL (80-100) H 08/23/21 04:43 MCH 34.5 pg (27.0-35.0) 08/23/21 04:43 MCHC 33.5 g/dL (32.0-36.0) 08/23/21 04:43 RDW 13.9 % (12.1-15.2) 08/23/21 04:43 Plt Count 300 K/uL (152-406) 08/23/21 04:43 MPV 7.7 fL (7.6-11.3) 08/23/21 04:43 Neutrophils % 69.7 % (41.7-73.7) 08/23/21 04:43 Lymphocytes % 15.3 % (15.3-44.8) 08/23/21 04:43 Monocytes % 9.6 % (3.3-12.3) 08/23/21 04:43 Eosinophils % 4.7 % (0-4.4) H 08/23/21 04:43 Basophils % 0.7 % (0-1.3) 08/23/21 04:43 Absolute Neutrophils 5.7 K/uL (1.8-8.0) 08/23/21 04:43 Absolute Lymphocytes 1.3 K/uL (0.7-4.9) 08/23/21 04:43 Absolute Monocytes 0.8 K/uL (0.1-1.3) 08/23/21 04:43 Absolute Eosinophils 0.4 K/uL (0-0.5) 08/23/21 04:43 Absolute Basophils 0.1 K/uL (0-0.5) 08/23/21 04:43 Sodium 143 mmol/L (136-145) 08/24/21 06:19 Potassium 3.7 mmol/L (3.5-5.1) 08/24/21 06:19 Chloride 107 mmol/L (98-107) 08/24/21 06:19 Carbon Dioxide 29 mmol/L (21-32) 08/24/21 06:19 BUN 12 mg/dL (7-18) 08/24/21 06:19 Creatinine 0.95 mg/dL (0.55-1.3) 08/24/21 06:19 Estimated GFR 77 mL/min (=/>90) L 08/24/21 06:19 Glucose 96 mg/dL (74-106) 08/24/21 06:19 Calcium 8.7 mg/dL (8.5-10.1) 08/24/21 06:19 Magnesium 2.2 mg/dL (1.8-2.4) 08/23/21 04:43 Albumin 3.0 g/dL (3.4-5.0) L 08/23/21 04:43 Prealbumin 23.8 mg/dL (20-40) 08/24/21 06:19 Urine Color Dk yellow (Yellow) 08/21/21 19:45 Urine Appearance Clear (Clear) 08/21/21 19:45 Urine pH 5.5 (5.0-7.0) 08/21/21 19:45 Ur Specific [place] 1.025 (1.005-1.030) 08/21/21 19:45 Glucose (UA)(Auto) Negative (Negative) 08/21/21 19:45 Urine Ketones Negative (Negative) 08/21/21 19:45 Urine Blood Negative (Negative) 08/21/21 19:45 Urine Nitrite Negative (Negative) 08/21/21 19:45 Urine Bilirubin Negative (Negative) 08/21/21 19:45 Urine Urobilinogen 0.2 mg/dL (0.2-1.0) 08/21/21 19:45 Ur Leukocyte Esterase Negative (Negative) 08/21/21 19:45 Urine RBC 10-20 /HPF (NONE SEEN) H 08/21/21 19:45 Urine WBC <5 /HPF (<5) 08/21/21 19:45 Ur Squamous Epith Cells <5 /HPF (NONE SEEN) 08/21/21 19:45 Ur Urothelial Cells <5 /HPF (NONE SEEN) 08/21/21 19:45 Urine Bacteria <20 /HPF (NONE SEEN) 08/21/21 19:45 Hyaline Casts 0-5 /LPF (NONE SEEN) 08/21/21 19:45 Urine Mucus 1+ /HPF (NONE SEEN) 08/21/21 19:45 Urine Culture Reflexed Not needed 08/21/21 19:45 Urine Total Protein Negative (Negative) 08/21/21 19:45 Weight: 167 lb Wound Present: No Closed Surgical Incision Present: No Negative Pressure Wound Therapy Present: No Physician Update: He has episodes of significant orthostatic hypotention. He is making fair overall progress with all therapy. Labs were reviewed and are stable. Comment: no skin breakdown per report Summary: Patient's care plan and mcc goals have been reviewed and revised as necessary. Please see the Rehabilitation Signature page for all necessary signatures.
[2021-08-25] MEDS: MIDODRINE HCL 5 MG TABLET PO SCH ×3 (05:13→16:56)
[2021-08-25] MEDS: VANCOMYCIN ORAL SOLN 250 MG/5 ML OSYR PO SCH ×4 (05:17→23:36)
[2021-08-25] MEDS: PANTOPRAZOLE 40MG TABLET PO SCH (05:17)
[2021-08-25] MEDS: LEVOTHYROXINE SOD 0.1 MG TAB PO SCH (05:18)
[2021-08-25] MEDS: LEVOTHYROXINE SOD 0.075 MG TAB PO SCH (05:18)
[2021-08-25] MEDS: AMLODIPINE 2.5 MG TAB PO SCH ×2 (08:00→19:39)
[2021-08-25] MEDS: HYDROCORTISONE ACETATE 25MG SUPP PR SCH ×2 (08:00→19:30)
[2021-08-25] MEDS: MESALAMINE 400 MG CAPSULE.DR PO SCH ×2 (08:14→19:38)
[2021-08-25] MEDS: GABAPENTIN 300 MG CAP PO SCH ×3 (08:15→19:38)
[2021-08-25] MEDS: DABIGATRAN 75 MG CAP PO SCH ×2 (08:16→19:38)
[2021-08-25] MEDS: ROSUVASTATIN 10 MG TAB PO SCH (08:16)
[2021-08-25] MEDS: DULOXETINE 20 MG CAP PO SCH (08:16)
[2021-08-25] MEDS: OXcarbazepine 150 MG TAB PO SCH ×2 (08:17→19:38)
[2021-08-25] MEDS: FLUDROCORTISONE 0.1 MG TAB PO SCH (08:18)
[2021-08-25] MEDS: AMIODARONE HCL 200 MG TAB PO SCH (08:18)
[2021-08-25] MEDS: modafiniL 100 MG TAB PO SCH (08:18)
[2021-08-25] MEDS: AMANTADINE 100 MG CAP PO SCH (08:20)
[2021-08-25] MEDS: VITAMIN D 5,000 UNIT CAP PO SCH (08:20)
[2021-08-26] MEDS: MIDODRINE HCL 5 MG TABLET PO SCH ×3 (04:59→16:56)
[2021-08-26] MEDS: VANCOMYCIN ORAL SOLN 250 MG/5 ML OSYR PO SCH ×3 (04:59→16:56)
[2021-08-26] MEDS: PANTOPRAZOLE 40MG TABLET PO SCH (04:59)
[2021-08-26] MEDS: LEVOTHYROXINE SOD 0.1 MG TAB PO SCH (06:21)
[2021-08-26] MEDS: LEVOTHYROXINE SOD 0.075 MG TAB PO SCH (06:21)
[2021-08-26] MEDS: AMLODIPINE 2.5 MG TAB PO SCH ×2 (08:00→19:32)
[2021-08-26] MEDS: HYDROCORTISONE ACETATE 25MG SUPP PR SCH ×2 (08:00→19:33)
[2021-08-26] MEDS: MESALAMINE 400 MG CAPSULE.DR PO SCH ×2 (08:29→19:32)
[2021-08-26] MEDS: DULOXETINE 20 MG CAP PO SCH (08:29)
[2021-08-26] MEDS: OXcarbazepine 150 MG TAB PO SCH ×2 (08:30→19:33)
[2021-08-26] MEDS: ROSUVASTATIN 10 MG TAB PO SCH (08:30)
[2021-08-26] MEDS: AMANTADINE 100 MG CAP PO SCH (08:30)
[2021-08-26] MEDS: GABAPENTIN 300 MG CAP PO SCH ×3 (08:30→19:32)
[2021-08-26] MEDS: FLUDROCORTISONE 0.1 MG TAB PO SCH (08:31)
[2021-08-26] MEDS: modafiniL 100 MG TAB PO SCH (08:32)
[2021-08-26] MEDS: AMIODARONE HCL 200 MG TAB PO SCH (08:32)
[2021-08-26] MEDS: DABIGATRAN 75 MG CAP PO SCH ×2 (08:32→19:32)
[2021-08-26] MEDS: VITAMIN D 5,000 UNIT CAP PO SCH (08:33)
[2021-08-26] MEDS: ACETAMINOPHEN 500 MG TAB PO PRN (21:02)
[2021-08-27] MEDS: VANCOMYCIN ORAL SOLN 250 MG/5 ML OSYR PO SCH ×4 (00:04→17:04)
[2021-08-27] MEDS: ACETAMINOPHEN 500 MG TAB PO PRN (00:07)
--- NOTE | 2021-08-27 02:28 | P.PN ---
Subjective Date of Service: 08/25/21 Subjective: Improving (Chart reviewed. Patient is doing much better. Clinical symptoms are improving. Working are with therapy. Diarrhea is improved as well.) Review of Systems 10-point ROS is otherwise unremarkable Physical Examination - Vital Signs Temperature: 97.3 F Blood Pressure: 180/91 Pulse: 51 Respirations: 17 Pulse Ox (%): 95 - Physical Exam General: Alert, In no apparent distress, Oriented x3 HEENT: Atraumatic, PERRLA, EOMI Neck: Supple, JVD not distended Respiratory: Clear to auscultation bilaterally, Normal air movement Cardiovascular: Regular rate/rhythm, Normal S1 S2 Gastrointestinal: Normal bowel sounds, No tenderness Musculoskeletal: No tenderness Integumentary: No rashes Neurological: Normal speech, Normal tone, Normal affect Lymphatics: No axilla or inguinal lymphadenopathy - Studies Medications List Reviewed: Yes Assessment & Plan - Problems (Diagnosis) (1) Clostridium difficile colitis Current Visit: Yes Status: Acute (2) Acute CVA (cerebrovascular accident) Current Visit: Yes Status: Acute (3) Multiple sclerosis Current Visit: Yes Status: Acute (4) Atrial fibrillation Current Visit: Yes Status: Acute (5) CAD (coronary artery disease) Current Visit: Yes Status: Acute (6) HTN (hypertension) Current Visit: Yes Status: Acute - Plan 1. Continue physical therapy 2. Continue occupational therapy 3. Anti-platelet therapy and statin therapy 4. Continue with cardiac meds 5. Plan to discharge in 8 more days 6. Physically patient is doing well and may benefit more from outpatient physical therapy and inpatient rehab 7. Continue with rehab as mentioned above 8. Monitor blood pressure closely 9. Continue neuro checks 10. Continue with vancomycin along with pro biotics Discharge Plan: Home Plan to discharge in: Greater than 2 days - Advance Directives Does patient have a Living Will: Yes Does patient have a Durable POA for Healthcare: No - Code Status/Comfort Care Code Status Assessed: Yes Code Status: Full Code Critical Care: No Time Spent Managing PTS Care (In Minutes): 35
--- NOTE | 2021-08-27 02:29 | P.PN ---
Date of Service: 08/26/21 Subjective Patient doing well with no new complaints. Review of Systems 10-point ROS is otherwise unremarkable Physical Examination - Vital Signs Reviewed - Physical Exam General: Alert, In no apparent distress, Oriented x3 Respiratory: Clear to auscultation bilaterally, Normal air movement Cardiovascular: Regular rate/rhythm, Normal S1 S2 Gastrointestinal: Normal bowel sounds, No tenderness Neurological: Normal speech, Normal tone, Normal affect Assessment & Plan - Problems (Diagnosis) (1) Clostridium difficile colitis Current Visit: Yes Status: Acute (2) Acute CVA (cerebrovascular accident) Current Visit: Yes Status: Acute (3) Multiple sclerosis Current Visit: Yes Status: Acute (4) Atrial fibrillation Current Visit: Yes Status: Acute (5) CAD (coronary artery disease) Current Visit: Yes Status: Acute (6) HTN (hypertension) Current Visit: Yes Status: Acute - Plan Continue plan of care as mentioned below: 1. Continue physical therapy 2. Continue occupational therapy 3. Anti-platelet therapy and statin therapy 4. Continue with cardiac meds 5. Plan to discharge in 8 more days 6. Physically patient is doing well and may benefit more from outpatient physical therapy and inpatient rehab 7. Continue with rehab as mentioned above 8. Monitor blood pressure closely 9. Continue neuro checks 10. Continue with vancomycin along with pro biotics
[2021-08-27] MEDS: MIDODRINE HCL 5 MG TABLET PO SCH ×3 (05:15→17:04)
[2021-08-27] MEDS: PANTOPRAZOLE 40MG TABLET PO SCH (05:15)
[2021-08-27] MEDS: LEVOTHYROXINE SOD 0.075 MG TAB PO SCH (07:05)
[2021-08-27] MEDS: LEVOTHYROXINE SOD 0.1 MG TAB PO SCH (07:05)
[2021-08-27] MEDS: AMLODIPINE 2.5 MG TAB PO SCH ×2 (08:00→19:36)
[2021-08-27] MEDS: HYDROCORTISONE ACETATE 25MG SUPP PR SCH ×2 (08:00→19:35)
[2021-08-27] MEDS: MESALAMINE 400 MG CAPSULE.DR PO SCH ×2 (08:15→19:35)
[2021-08-27] MEDS: DABIGATRAN 75 MG CAP PO SCH ×2 (08:15→19:35)
[2021-08-27] MEDS: GABAPENTIN 300 MG CAP PO SCH ×3 (08:17→19:36)
[2021-08-27] MEDS: ROSUVASTATIN 10 MG TAB PO SCH (08:17)
[2021-08-27] MEDS: OXcarbazepine 150 MG TAB PO SCH ×2 (08:17→19:35)
[2021-08-27] MEDS: AMANTADINE 100 MG CAP PO SCH (08:17)
[2021-08-27] MEDS: modafiniL 100 MG TAB PO SCH (08:18)
[2021-08-27] MEDS: FLUDROCORTISONE 0.1 MG TAB PO SCH (08:18)
[2021-08-27] MEDS: VITAMIN D 5,000 UNIT CAP PO SCH (08:18)
[2021-08-27] MEDS: AMIODARONE HCL 200 MG TAB PO SCH (08:18)
[2021-08-27] MEDS: DULOXETINE 20 MG CAP PO SCH (08:18)
--- NOTE | 2021-08-27 17:33 | R.PN ---
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 Pt denied any Shortness of Breath. Ambulated 750' with contact guard to standby assistance with a rolling walker. WBC 8.2, Hgb 12.8. VITAL SIGNS Temperature: 98.1 F SBP/DBP: 188/99 lying, 105/77 standing Pulse: 50 lying, 78 standing Resp: 16 MEDICATION ALLERGIES: No Known Drug Allergies (NKDA) ENVIRONMENTAL ALLERGIES: - Substance Allergies None Known - Other Allergies None Known NURSING: - Shower allowing shower - Bladder care per protocol - Skin care per protocol PRECAUTIONS: - Weight Bearing Precaution WBAT right LE ACTIVITIES OOB only with supervision THERAPIES: - Dietary and Nutrition Adequate Nutrition. Nutritional Education. Nutritional Supplements. - Occupational Therapy Cognitive Retraining. Evaluate and Treat. Transfer Training. ADL Training. Adaptive Equipment. UE Str engthening. Household Tasks. Patient/Family Education. Safety Awareness. Visual Perceptual Training. - Speech Therapy Cognitive Training. Expressive Language Skills. Memory Strategies. Receptive Language Skills. Speech Intelligibility Training. - Physical Therapy Gait Training. Evaluate and Treat. LE Strengthening. Patient/Family Education. Transfer Training. Mob ility Training. Safety Awareness. Balance Training. PHYSICAL EXAM - Gen Alert and awake Lying in bed No apparent distress Oriented to: person, time, and place - Skin No breakdown Normacephalic - Eyes No abnormalities - Neck No abnormalities - CVS RRR - Chest No abnormalities - Resp Clear to auscultation - Abd Soft - GI Soft Deferred - No abnormalities - Ext No significant edema - MSK 4+/5 weakness in right lower extremity. - Neuro 4/5 strength right lower extremity. - Psych No abnormalities ASSESSMENT: Pt. is a 75 yo Right-handed male.On 08/10/2021 Pt. presented to [facility] with sudden o nset of right-side weakness.On 08/10/2021 he was admitted to [facility] with diagnosis C [facility].His impairment category is Stroke 01 - Right Body (Left Brain) (01.2).Pre-morbidly, Pt. was indep endent/mod-I in Locomotion, Safety Awareness, Social Cognition, and Balance; and he had good Transfer s Control, Self-Care, Communication, Endurance, and Sphincter Control.Currently, he has deficits of L ocomotion, Social Cognition, Safety Awareness, Transfers Control, Balance, Sphincter Control, Enduran ce, Self-Care, and Communication.Pt. is now referred to [facility] for acute i n-patient rehabilitation in order to maximize patient's functional independence in activities of mallory y living, strength, ROM, and mobility.- Rehab Goal Patient has realistic goal of being discharged at assistance level 7-Ind to reside at Home with Fami ly/Relatives. MDM/PLAN: - Physical Therapy Gait dysfunction - to improve, our physical therapists will perform initial evaluation of pt's statu s upon admission and devise an individualized program for Gait Training, and Wheel Chair mobility Inability to transfer - to improve, our physical therapists will perform initial evaluation of pt's status upon admission and devise an individualized program for Bed mobility Need for home safety evaluation - to improve, our physical therapists will perform initial evaluatio n of pt's status upon admission and devise an individualized program for Home Evaluation Need in caregiver upon discharge - to improve, our physical therapists will perform initial evaluati on of pt's status upon admission and devise an individualized program for Caregiver Training New precaution - to improve, our physical therapists will perform initial evaluation of pt's status upon admission and devise an individualized program for Patient precaution education Edema - to improve, our physical therapists will perform initial evaluation of pt's status upon admi ssion and devise an individualized program for Elevation Training, and Lymphedema Therapy Poor balance - to improve, our physical therapists will perform initial evaluation of pt's status up on admission and devise an individualized program for Balance Training Poor endurance - to improve, our physical therapists will perform initial evaluation of pt's status upon admission and devise an individualized program for Endurance Training Weakness - to improve, our physical therapists will perform initial evaluation of pt's status upon a dmission and devise an individualized program for Aquatic Therapy, Neuromuscular Reeducation, and Str engthening Achieving independence - to improve, our physical therapists will perform initial evaluation of pt's status upon admission and devise an individualized program for Community Reintegration Activities - Occupational Therapy ADL deficits - to improve, our occupation therapists will perform initial evaluation of pt's status upon admission and devise an individualized program for Bathing, Bed mobility, Community Reintegratio n, Cooking, Dressing, Eating, Fine Motor Skills, Grooming, Homemaking, Kitchen Mobility, Laundry, Pat ient Education, Safety Awareness, Splinting - Positioning, Transfers(Toilet, Tub, Shower), and Wheel Chair Management Cognitive deficits - to improve, our occupation therapists will perform initial evaluation of pt's s tatus upon admission and devise an individualized program for Cognition - orientation Need for career services assistant - to improve, our occupation therapists will perform initial evaluation of pt's status upon admission and devise an individualized program for Caregiver Training Weakness - to improve, our occupation therapists will perform initial evaluation of pt's status upon admission and devise an individualized program for Aquatic Therapy, Balance, Endurance, UE ROM, and UE strengthening - Other See attached MAR (Medication Administration Record) - Diet Type Continue Regular - Diet - Liquid Texture Continue Regular - Tube Feed Continue N/A - Bladder care per protocol - Weight Bearing Precaution WBAT right LE - Skin care per protocol - Diet - Solid Texture Continue Regular - Shower allowing shower for Dementia, TBI, Stroke, or others FUNCTIONAL STATUS: UPDATED AT WEEKLY TEAM CONFERENCE - Bladder Same accident frequency: 7-Ind - No accidents in the past 7 days - Bowel Same accident frequency: 7-Ind - No accidents in the past 7 days - Walking Same score based on distance walked: 0(N/A) Same score based on distance walked: 1(<=50ft) - Wheelchair Same score based on distance traveled: 0(N/A) FUNCTIONAL STATUS: - Self-Care A. Eating Tuyet B. Grooming sup C. Bathing Rigo D. Dressing - Upper Rigo E. Dressing - Lower modA F. Toileting Rigo - Sphincter Control G. Bladder control sup H. Bowel control sup - Transfers Control I. Bed/Chair/Wheelchair Rigo J. Toilet sup K. Tub/Shower Rigo - Locomotion L. Walk/Wheelchair (B) Rigo M. Stairs modA - Communication N. Comprehension (B) Tuyet O. Expression (B) Tuyet - Social Cognition P. Social Interaction Ind Q. Problem Solving Tuyet R. Memory Tuyet - Endurance Good - Balance Fair - Safety Awareness Fair QI SCORES: - Self-Care A. Eating 03-Partial/moderate assistance B. Oral hygiene 03-Partial/moderate assistance C. Toileting hygiene 02-Substantial/maximal assistance E. Shower/bathe self 02-Substantial/maximal assistance F. Upper body dressing 03-Partial/moderate assistance G. Lower body dressing 03-Partial/moderate assistance H. Putting on/taking off footwear 88-Not attempted due to medical condition or safety concerns - Mobility A. Roll left and right 03-Partial/moderate assistance B. Sit to lying 03-Partial/moderate assistance C. Lying to sitting on side of bed 03-Partial/moderate assistance D. Sit to stand 03-Partial/moderate assistance E. Chair/glu-xm-ntabn transfer 03-Partial/moderate assistance F. Toilet transfer 03-Partial/moderate assistance G. Car transfer 88-Not attempted due to medical condition or safety concerns I. Walk 10 feet 03-Partial/moderate assistance J. Walk 50 feet with two turns 88-Not attempted due to medical condition or safety concerns K. Walk 150 feet 88-Not attempted due to medical condition or safety concerns L. Walking 10 feet on uneven surfaces 88-Not attempted due to medical condition or safety concerns M. 1 step (curb) 88-Not attempted due to medical condition or safety concerns N. 4 steps 88-Not attempted due to medical condition or safety concerns O. 12 steps 88-Not attempted due to medical condition or safety concerns P. Picking up object 03-Partial/moderate assistance R. Wheel 50 feet with two turns 88-Not attempted due to medical condition or safety concerns S. Wheel 150 feet 88-Not attempted due to medical condition or safety concerns - Bladder and Bowel Bladder continence Bowel continence - Endurance Fair - Balance Fair - Safety Awareness Fair CURRENT [facility]. DEFICITS: Self-Care, Mobility, Endurance, Balance, and Safety Awareness SIGNATURE PANEL: (STUDENT ACTIVITIES DIRECTOR)
[2021-08-28] MEDS: VANCOMYCIN ORAL SOLN 250 MG/5 ML OSYR PO SCH ×4 (00:56→17:39)
[2021-08-28] MEDS: MIDODRINE HCL 5 MG TABLET PO SCH ×3 (05:30→17:39)
[2021-08-28] MEDS: PANTOPRAZOLE 40MG TABLET PO SCH (05:30)
--- NOTE | 2021-08-28 07:18 | PN ---
Date of Progress Note: 08/27/2021 Subjective: The patient was seen this morning for followup, no new complaints or problems reported b y patient. He was lying in bed, not in distress. He is participating well with the physical therapy . Objective: Vital Signs: Reviewed. HEENT: Unremarkable. Lungs: Clear to auscultation. Heart: Heart sounds normal. Abdomen: Soft, bowel sounds normal. No guarding, rigidity, tenderness, or distention. Extremities: No leg edema. Impression: 1.Stroke. 2.Paroxysmal atrial fibrillation. 3.Hypertension. 4.Hyperlipidemia. 5.Chronic anticoagulation therapy. 6.Clostridium difficile colitis. Plan: We will go ahead and continue current medication. I have reviewed his vital signs. He still continues to drop his blood pressure when he stands up and sits compared to lying down, but at least with the current medical management he is able to participate with the physical therapy and improving well. We will continue his current midodrine and fludrocortisone. We will also continue his curren t blood pressure medication, which is amlodipine if systolic blood pressure is higher than 160. Cont inue other current medical management including his anticoagulant therapy and physical therapy under guidance of Dr. Pizano. The patient remains on vancomycin for his Clostridium difficile colitis and he does not have any diarrhea problem. Last bowel movement was yesterday. RADHA/MODL Voice ID: [id number] Report ID: [id number]
[2021-08-28] MEDS: HYDROCORTISONE ACETATE 25MG SUPP PR SCH ×2 (08:00→20:00)
[2021-08-28] MEDS: GABAPENTIN 300 MG CAP PO SCH ×3 (08:47→20:04)
[2021-08-28] MEDS: ROSUVASTATIN 10 MG TAB PO SCH (08:47)
[2021-08-28] MEDS: DABIGATRAN 75 MG CAP PO SCH ×2 (08:48→20:04)
[2021-08-28] MEDS: MESALAMINE 400 MG CAPSULE.DR PO SCH ×2 (08:48→20:04)
[2021-08-28] MEDS: modafiniL 100 MG TAB PO SCH (08:49)
[2021-08-28] MEDS: FLUDROCORTISONE 0.1 MG TAB PO SCH (08:49)
[2021-08-28] MEDS: DULOXETINE 20 MG CAP PO SCH (08:49)
[2021-08-28] MEDS: AMANTADINE 100 MG CAP PO SCH (08:49)
[2021-08-28] MEDS: VITAMIN D 5,000 UNIT CAP PO SCH (08:49)
[2021-08-28] MEDS: OXcarbazepine 150 MG TAB PO SCH ×2 (08:49→20:05)
[2021-08-28] MEDS: AMLODIPINE 2.5 MG TAB PO SCH ×2 (08:50→20:00)
[2021-08-28] MEDS: LEVOTHYROXINE SOD 0.1 MG TAB PO SCH (08:50)
[2021-08-28] MEDS: LEVOTHYROXINE SOD 0.075 MG TAB PO SCH (08:52)
[2021-08-28] MEDS: AMIODARONE HCL 200 MG TAB PO SCH (08:52)
--- NOTE | 2021-08-28 17:53 | R.PN ---
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 Pt denied any Shortness of Breath. Ambulated 620' with contact guard assistance with a rolling walker. WBC 8.2, Hgb 12.8. VITAL SIGNS Temperature: 98.1 F SBP/DBP: 163/68 lying, 85/58 standing Pulse: 50 lying, 70 standing Resp: 16 MEDICATION ALLERGIES: No Known Drug Allergies (NKDA) ENVIRONMENTAL ALLERGIES: - Substance Allergies None Known - Other Allergies None Known NURSING: - Shower allowing shower - Bladder care per protocol - Skin care per protocol PRECAUTIONS: - Weight Bearing Precaution WBAT right LE ACTIVITIES OOB only with supervision THERAPIES: - Dietary and Nutrition Adequate Nutrition. Nutritional Education. Nutritional Supplements. - Occupational Therapy Cognitive Retraining. Evaluate and Treat. Transfer Training. ADL Training. Adaptive Equipment. UE Str engthening. Household Tasks. Patient/Family Education. Safety Awareness. Visual Perceptual Training. - Speech Therapy Cognitive Training. Expressive Language Skills. Memory Strategies. Receptive Language Skills. Speech Intelligibility Training. - Physical Therapy Gait Training. Evaluate and Treat. LE Strengthening. Patient/Family Education. Transfer Training. Mob ility Training. Safety Awareness. Balance Training. PHYSICAL EXAM - Gen Alert and awake Lying in bed No apparent distress Oriented to: person, time, and place - Skin No breakdown Normacephalic - Eyes No abnormalities - Neck No abnormalities - CVS RRR - Chest No abnormalities - Resp Clear to auscultation - Abd Soft - GI Soft Deferred - No abnormalities - Ext No significant edema - MSK 4+/5 weakness in right lower extremity. - Neuro 4/5 strength right lower extremity. - Psych No abnormalities ASSESSMENT: Pt. is a 75 yo Right-handed male.On 08/10/2021 Pt. presented to [facility] with sudden o nset of right-side weakness.On 08/10/2021 he was admitted to [facility] with diagnosis C [facility].His impairment category is Stroke 01 - Right Body (Left Brain) (01.2).Pre-morbidly, Pt. was indep endent/mod-I in Locomotion, Safety Awareness, Social Cognition, and Balance; and he had good Transfer s Control, Self-Care, Communication, Endurance, and Sphincter Control.Currently, he has deficits of L ocomotion, Social Cognition, Safety Awareness, Transfers Control, Balance, Sphincter Control, Enduran ce, Self-Care, and Communication.Pt. is now referred to [facility] for acute i n-patient rehabilitation in order to maximize patient's functional independence in activities of mallory y living, strength, ROM, and mobility.- Rehab Goal Patient has realistic goal of being discharged at assistance level 7-Ind to reside at Home with Fami ly/Relatives. MDM/PLAN: - Physical Therapy Gait dysfunction - to improve, our physical therapists will perform initial evaluation of pt's statu s upon admission and devise an individualized program for Gait Training, and Wheel Chair mobility Inability to transfer - to improve, our physical therapists will perform initial evaluation of pt's status upon admission and devise an individualized program for Bed mobility Need for home safety evaluation - to improve, our physical therapists will perform initial evaluatio n of pt's status upon admission and devise an individualized program for Home Evaluation Need in caregiver upon discharge - to improve, our physical therapists will perform initial evaluati on of pt's status upon admission and devise an individualized program for Caregiver Training New precaution - to improve, our physical therapists will perform initial evaluation of pt's status upon admission and devise an individualized program for Patient precaution education Edema - to improve, our physical therapists will perform initial evaluation of pt's status upon admi ssion and devise an individualized program for Elevation Training, and Lymphedema Therapy Poor balance - to improve, our physical therapists will perform initial evaluation of pt's status up on admission and devise an individualized program for Balance Training Poor endurance - to improve, our physical therapists will perform initial evaluation of pt's status upon admission and devise an individualized program for Endurance Training Weakness - to improve, our physical therapists will perform initial evaluation of pt's status upon a dmission and devise an individualized program for Aquatic Therapy, Neuromuscular Reeducation, and Str engthening Achieving independence - to improve, our physical therapists will perform initial evaluation of pt's status upon admission and devise an individualized program for Community Reintegration Activities - Occupational Therapy ADL deficits - to improve, our occupation therapists will perform initial evaluation of pt's status upon admission and devise an individualized program for Bathing, Bed mobility, Community Reintegratio n, Cooking, Dressing, Eating, Fine Motor Skills, Grooming, Homemaking, Kitchen Mobility, Laundry, Pat ient Education, Safety Awareness, Splinting - Positioning, Transfers(Toilet, Tub, Shower), and Wheel Chair Management Cognitive deficits - to improve, our occupation therapists will perform initial evaluation of pt's s tatus upon admission and devise an individualized program for Cognition - orientation Need for skin care technician - to improve, our occupation therapists will perform initial evaluation of pt's status upon admission and devise an individualized program for Caregiver Training Weakness - to improve, our occupation therapists will perform initial evaluation of pt's status upon admission and devise an individualized program for Aquatic Therapy, Balance, Endurance, UE ROM, and UE strengthening - Other See attached MAR (Medication Administration Record) - Diet Type Continue Regular - Diet - Liquid Texture Continue Regular - Tube Feed Continue N/A - Bladder care per protocol - Weight Bearing Precaution WBAT right LE - Skin care per protocol - Diet - Solid Texture Continue Regular - Shower allowing shower for Dementia, TBI, Stroke, or others FUNCTIONAL STATUS: UPDATED AT WEEKLY TEAM CONFERENCE - Bladder Same accident frequency: 7-Ind - No accidents in the past 7 days - Bowel Same accident frequency: 7-Ind - No accidents in the past 7 days - Walking Same score based on distance walked: 0(N/A) Same score based on distance walked: 1(<=50ft) - Wheelchair Same score based on distance traveled: 0(N/A) FUNCTIONAL STATUS: - Self-Care A. Eating Tuyet B. Grooming sup C. Bathing Rigo D. Dressing - Upper Rigo E. Dressing - Lower modA F. Toileting Rigo - Sphincter Control G. Bladder control sup H. Bowel control sup - Transfers Control I. Bed/Chair/Wheelchair Rigo J. Toilet sup K. Tub/Shower Rigo - Locomotion L. Walk/Wheelchair (B) Rigo M. Stairs modA - Communication N. Comprehension (B) Tuyet O. Expression (B) Tuyet - Social Cognition P. Social Interaction Ind Q. Problem Solving Tuyet R. Memory Tuyet - Endurance Good - Balance Fair - Safety Awareness Fair QI SCORES: - Self-Care A. Eating 03-Partial/moderate assistance B. Oral hygiene 03-Partial/moderate assistance C. Toileting hygiene 02-Substantial/maximal assistance E. Shower/bathe self 02-Substantial/maximal assistance F. Upper body dressing 03-Partial/moderate assistance G. Lower body dressing 03-Partial/moderate assistance H. Putting on/taking off footwear 88-Not attempted due to medical condition or safety concerns - Mobility A. Roll left and right 03-Partial/moderate assistance B. Sit to lying 03-Partial/moderate assistance C. Lying to sitting on side of bed 03-Partial/moderate assistance D. Sit to stand 03-Partial/moderate assistance E. Chair/dhu-hp-nosen transfer 03-Partial/moderate assistance F. Toilet transfer 03-Partial/moderate assistance G. Car transfer 88-Not attempted due to medical condition or safety concerns I. Walk 10 feet 03-Partial/moderate assistance J. Walk 50 feet with two turns 88-Not attempted due to medical condition or safety concerns K. Walk 150 feet 88-Not attempted due to medical condition or safety concerns L. Walking 10 feet on uneven surfaces 88-Not attempted due to medical condition or safety concerns M. 1 step (curb) 88-Not attempted due to medical condition or safety concerns N. 4 steps 88-Not attempted due to medical condition or safety concerns O. 12 steps 88-Not attempted due to medical condition or safety concerns P. Picking up object 03-Partial/moderate assistance R. Wheel 50 feet with two turns 88-Not attempted due to medical condition or safety concerns S. Wheel 150 feet 88-Not attempted due to medical condition or safety concerns - Bladder and Bowel Bladder continence Bowel continence - Endurance Fair - Balance Fair - Safety Awareness Fair [facility] 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
--- NOTE | 2021-08-28 19:04 | PN ---
Date of Progress Note: 08/28/2021 Subjective: The patient was seen this morning for followup. He had a bowel movement yesterday. Den ies any diarrhea. No nausea, vomiting. No abdominal pain. Objective: Vital Signs: Reviewed. HEENT: Unremarkable. Lungs: Clear to auscultation. Heart: Sounds normal. Abdomen: Soft. Bowel sounds normal. No guarding, rigidity, tenderness, or distention. Extremities: No leg edema. Impression: 1.Clostridium difficile colitis. 2.Stroke. 3.Paroxysmal atrial fibrillation. 4.Hypertension. 5.Orthostatic hypotension. Plan: We will continue vancomycin. Continue current antihypertensive medication and also midodrine as well as fludrocortisone for orthostatic hypotension. We will continue to provide physical therapy under guidance of Dr. Pizano. I will see him tomorrow for followup. RADHA/MODL Voice ID: [id number] Report ID: [id number]
[2021-08-29] MEDS: VANCOMYCIN ORAL SOLN 250 MG/5 ML OSYR PO SCH ×4 (00:11→17:33)
[2021-08-29] MEDS: PANTOPRAZOLE 40MG TABLET PO SCH (05:15)
[2021-08-29] MEDS: MIDODRINE HCL 5 MG TABLET PO SCH ×3 (05:15→17:34)
[2021-08-29] MEDS: LEVOTHYROXINE SOD 0.075 MG TAB PO SCH (07:09)
[2021-08-29] MEDS: LEVOTHYROXINE SOD 0.1 MG TAB PO SCH (07:09)
[2021-08-29] MEDS: HYDROCORTISONE ACETATE 25MG SUPP PR SCH (08:00)
[2021-08-29] MEDS: AMLODIPINE 2.5 MG TAB PO SCH ×2 (08:00→20:12)
[2021-08-29] MEDS: ROSUVASTATIN 10 MG TAB PO SCH (08:09)
[2021-08-29] MEDS: MESALAMINE 400 MG CAPSULE.DR PO SCH ×2 (08:09→20:11)
[2021-08-29] MEDS: OXcarbazepine 150 MG TAB PO SCH ×2 (08:09→20:12)
[2021-08-29] MEDS: DULOXETINE 20 MG CAP PO SCH (08:09)
[2021-08-29] MEDS: AMANTADINE 100 MG CAP PO SCH (08:10)
[2021-08-29] MEDS: GABAPENTIN 300 MG CAP PO SCH ×3 (08:10→20:11)
[2021-08-29] MEDS: AMIODARONE HCL 200 MG TAB PO SCH (08:10)
[2021-08-29] MEDS: DABIGATRAN 75 MG CAP PO SCH ×2 (08:10→20:12)
[2021-08-29] MEDS: modafiniL 100 MG TAB PO SCH ×2 (08:10→20:12)
[2021-08-29] MEDS: VITAMIN D 5,000 UNIT CAP PO SCH (08:11)
[2021-08-29] MEDS: FLUDROCORTISONE 0.1 MG TAB PO SCH (08:12)
--- NOTE | 2021-08-29 18:14 | R.PN ---
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 Pt denied any Shortness of Breath. Ambulated 500' with contact guard assistance with a rolling walker. WBC 8.2, Hgb 12.8. VITAL SIGNS Temperature: 98.2 F SBP/DBP: 125/81 Pulse: 74 Resp: 16 MEDICATION ALLERGIES: No Known Drug Allergies (NKDA) ENVIRONMENTAL ALLERGIES: - Substance Allergies None Known - Other Allergies None Known NURSING: - Shower allowing shower - Bladder care per protocol - Skin care per protocol PRECAUTIONS: - Weight Bearing Precaution WBAT right LE ACTIVITIES OOB only with supervision THERAPIES: - Dietary and Nutrition Adequate Nutrition. Nutritional Education. Nutritional Supplements. - Occupational Therapy Cognitive Retraining. Evaluate and Treat. Transfer Training. ADL Training. Adaptive Equipment. UE Str engthening. Household Tasks. Patient/Family Education. Safety Awareness. Visual Perceptual Training. - Speech Therapy Cognitive Training. Expressive Language Skills. Memory Strategies. Receptive Language Skills. Speech Intelligibility Training. - Physical Therapy Gait Training. Evaluate and Treat. LE Strengthening. Patient/Family Education. Transfer Training. Mob ility Training. Safety Awareness. Balance Training. PHYSICAL EXAM - Gen Alert and awake Lying in bed No apparent distress Oriented to: person, time, and place - Skin No breakdown Normacephalic - Eyes No abnormalities - Neck No abnormalities - CVS RRR - Chest No abnormalities - Resp Clear to auscultation - Abd Soft - GI Soft Deferred - No abnormalities - Ext No significant edema - MSK 4+/5 weakness in right lower extremity. - Neuro 4/5 strength right lower extremity. - Psych No abnormalities ASSESSMENT: Pt. is a 75 yo Right-handed male.On 08/10/2021 Pt. presented to [facility] with sudden o nset of right-side weakness.On 08/10/2021 he was admitted to [facility] with diagnosis C VA.His impairment category is Stroke 01 - Right Body (Left Brain) (01.2).Pre-morbidly, Pt. was indep endent/mod-I in Locomotion, Safety Awareness, Social Cognition, and Balance; and he had good Transfer s Control, Self-Care, Communication, Endurance, and Sphincter Control.Currently, he has deficits of L ocomotion, Social Cognition, Safety Awareness, Transfers Control, Balance, Sphincter Control, Enduran ce, Self-Care, and Communication.Pt. is now referred to [facility] for acute i n-patient rehabilitation in order to maximize patient's functional independence in activities of mallory y living, strength, ROM, and mobility.- Rehab Goal Patient has realistic goal of being discharged at assistance level 7-Ind to reside at Home with Fami ly/Relatives. MDM/PLAN: - Physical Therapy Gait dysfunction - to improve, our physical therapists will perform initial evaluation of pt's statu s upon admission and devise an individualized program for Gait Training, and Wheel Chair mobility Inability to transfer - to improve, our physical therapists will perform initial evaluation of pt's status upon admission and devise an individualized program for Bed mobility Need for home safety evaluation - to improve, our physical therapists will perform initial evaluatio n of pt's status upon admission and devise an individualized program for Home Evaluation Need in caregiver upon discharge - to improve, our physical therapists will perform initial evaluati on of pt's status upon admission and devise an individualized program for Caregiver Training New precaution - to improve, our physical therapists will perform initial evaluation of pt's status upon admission and devise an individualized program for Patient precaution education Edema - to improve, our physical therapists will perform initial evaluation of pt's status upon admi ssion and devise an individualized program for Elevation Training, and Lymphedema Therapy Poor balance - to improve, our physical therapists will perform initial evaluation of pt's status up on admission and devise an individualized program for Balance Training Poor endurance - to improve, our physical therapists will perform initial evaluation of pt's status upon admission and devise an individualized program for Endurance Training Weakness - to improve, our physical therapists will perform initial evaluation of pt's status upon a dmission and devise an individualized program for Aquatic Therapy, Neuromuscular Reeducation, and Str engthening Achieving independence - to improve, our physical therapists will perform initial evaluation of pt's status upon admission and devise an individualized program for Community Reintegration Activities - Occupational Therapy ADL deficits - to improve, our occupation therapists will perform initial evaluation of pt's status upon admission and devise an individualized program for Bathing, Bed mobility, Community Reintegratio n, Cooking, Dressing, Eating, Fine Motor Skills, Grooming, Homemaking, Kitchen Mobility, Laundry, Pat ient Education, Safety Awareness, Splinting - Positioning, Transfers(Toilet, Tub, Shower), and Wheel Chair Management Cognitive deficits - to improve, our occupation therapists will perform initial evaluation of pt's s tatus upon admission and devise an individualized program for Cognition - orientation Need for rn home care - to improve, our occupation therapists will perform initial evaluation of pt's status upon admission and devise an individualized program for Caregiver Training Weakness - to improve, our occupation therapists will perform initial evaluation of pt's status upon admission and devise an individualized program for Aquatic Therapy, Balance, Endurance, UE ROM, and UE strengthening - Other See attached MAR (Medication Administration Record) - Diet Type Continue Regular - Diet - Liquid Texture Continue Regular - Tube Feed Continue N/A - Bladder care per protocol - Weight Bearing Precaution WBAT right LE - Skin care per protocol - Diet - Solid Texture Continue Regular - Shower allowing shower for Dementia, TBI, Stroke, or others FUNCTIONAL STATUS: UPDATED AT WEEKLY TEAM CONFERENCE - Bladder Same accident frequency: 7-Ind - No accidents in the past 7 days - Bowel Same accident frequency: 7-Ind - No accidents in the past 7 days - Walking Same score based on distance walked: 0(N/A) Same score based on distance walked: 1(<=50ft) - Wheelchair Same score based on distance traveled: 0(N/A) FUNCTIONAL STATUS: - Self-Care A. Eating Tuyet B. Grooming sup C. Bathing Rigo D. Dressing - Upper Rigo E. Dressing - Lower modA F. Toileting Rigo - Sphincter Control G. Bladder control sup H. Bowel control sup - Transfers Control I. Bed/Chair/Wheelchair Rigo J. Toilet sup K. Tub/Shower Rigo - Locomotion L. Walk/Wheelchair (B) Rigo M. Stairs modA - Communication N. Comprehension (B) Tuyet O. Expression (B) Tuyet - Social Cognition P. Social Interaction Ind Q. Problem Solving Tuyet R. Memory Tuyet - Endurance Good - Balance Fair - Safety Awareness Fair QI SCORES: - Self-Care A. Eating 03-Partial/moderate assistance B. Oral hygiene 03-Partial/moderate assistance C. Toileting hygiene 02-Substantial/maximal assistance E. Shower/bathe self 02-Substantial/maximal assistance F. Upper body dressing 03-Partial/moderate assistance G. Lower body dressing 03-Partial/moderate assistance H. Putting on/taking off footwear 88-Not attempted due to medical condition or safety concerns - Mobility A. Roll left and right 03-Partial/moderate assistance B. Sit to lying 03-Partial/moderate assistance C. Lying to sitting on side of bed 03-Partial/moderate assistance D. Sit to stand 03-Partial/moderate assistance E. Chair/[id number]-[id number] transfer 03-Partial/moderate assistance F. Toilet transfer 03-Partial/moderate assistance G. Car transfer 88-Not attempted due to medical condition or safety concerns I. Walk 10 feet 03-Partial/moderate assistance J. Walk 50 feet with two turns 88-Not attempted due to medical condition or safety concerns K. Walk 150 feet 88-Not attempted due to medical condition or safety concerns L. Walking 10 feet on uneven surfaces 88-Not attempted due to medical condition or safety concerns M. 1 step (curb) 88-Not attempted due to medical condition or safety concerns N. 4 steps 88-Not attempted due to medical condition or safety concerns O. 12 steps 88-Not attempted due to medical condition or safety concerns P. Picking up object 03-Partial/moderate assistance R. Wheel 50 feet with two turns 88-Not attempted due to medical condition or safety concerns S. Wheel 150 feet 88-Not attempted due to medical condition or safety concerns - Bladder and Bowel Bladder continence Bowel continence - Endurance Fair - Balance Fair - Safety Awareness Fair CURRENT FUNC. 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
--- NOTE | 2021-08-29 18:49 | PN ---
Date of Progress Note: 08/29/2021 Subjective: The patient was seen this morning for followup. No new complaints or problems reported by the patient. Lying in bed, not in distress. Objective: Vital Signs: Reviewed. HEENT: Unremarkable. Lungs: Clear to auscultation. Heart: Sounds normal. Abdomen: Soft. Bowel sounds normal. No guarding, rigidity, tenderness, distention. Extremities: No leg edema. Laboratory Data: Stool C diff came back positive. Impression: 1.Clostridium difficile colitis. 2.Paroxysmal atrial fibrillation. 3.Stroke with right-sided hemiparesis. 4.Hypertension. 5.Orthostatic hypotension. Plan: We will go ahead and continue vancomycin per order. We will go ahead and continue current mid odrine as well as fludrocortisone. We will continue antihypertensive medication and continue physica l therapy under guidance of Dr. Pizano. I will see him tomorrow for followup. RADHA/MODL Voice ID: [id number] Report ID: [id number]
[2021-08-29] MEDS: ACETAMINOPHEN 500 MG TAB PO PRN (21:33)
[2021-08-30] MEDS: VANCOMYCIN ORAL SOLN 250 MG/5 ML OSYR PO SCH ×4 (00:03→17:18)
[2021-08-30] MEDS: PANTOPRAZOLE 40MG TABLET PO SCH (05:10)
[2021-08-30] MEDS: MIDODRINE HCL 5 MG TABLET PO SCH ×3 (05:10→17:18)
[2021-08-30 05:12] LABS: Absolute Lymphocytes (CBC) 1.5 K/uL (0.7-4.9); Hematocrit 37.2 % (39.6-49.0); Lymphocytes % 21.4 % (15.3-44.8); MPV 7.9 fL (7.6-11.3); RBC Red Blood Cell Count 3.63 M/uL (4.33-5.43)
[2021-08-30 05:45] LABS: Albumin 3.1 g/dL (3.4-5.0); Potassium 3.8 mmol/L (3.5-5.1); Prealbumin 20.2 mg/dL (20-40)
[2021-08-30] MEDS: LEVOTHYROXINE SOD 0.075 MG TAB PO SCH (06:37)
[2021-08-30] MEDS: LEVOTHYROXINE SOD 0.1 MG TAB PO SCH (06:37)
[2021-08-30] MEDS: AMIODARONE HCL 200 MG TAB PO SCH (08:00)
[2021-08-30] MEDS: AMLODIPINE 2.5 MG TAB PO SCH ×2 (08:00→19:39)
[2021-08-30] MEDS: DABIGATRAN 75 MG CAP PO SCH ×2 (08:31→19:38)
[2021-08-30] MEDS: MESALAMINE 400 MG CAPSULE.DR PO SCH ×2 (08:31→19:38)
[2021-08-30] MEDS: AMANTADINE 100 MG CAP PO SCH (08:32)
[2021-08-30] MEDS: GABAPENTIN 300 MG CAP PO SCH ×3 (08:32→19:39)
[2021-08-30] MEDS: DULOXETINE 20 MG CAP PO SCH (08:32)
[2021-08-30] MEDS: FLUDROCORTISONE 0.1 MG TAB PO SCH (08:32)
[2021-08-30] MEDS: modafiniL 100 MG TAB PO SCH ×2 (08:33→19:39)
[2021-08-30] MEDS: OXcarbazepine 150 MG TAB PO SCH ×2 (08:34→19:39)
[2021-08-30] MEDS: ROSUVASTATIN 10 MG TAB PO SCH (08:34)
[2021-08-30] MEDS: VITAMIN D 5,000 UNIT CAP PO SCH (08:35)
[2021-08-30 16:34] LABS: Magnesium 1.9
--- NOTE | 2021-08-30 17:40 | R.PN ---
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 Pt denied any Shortness of Breath. Ambulated 250' with contact guard assistance with a rolling walker. Up and down 15 steps with contact guard assistance. WBC 6.9, Hgb 12.8, prealbumin 20.2. Assembly Leader 1.01. Covid-19 is negative. VITAL SIGNS Temperature: 98.2 F SBP/DBP: 122 to 198/84 to 92 Pulse: 52 to 62 Resp: 16 MEDICATION ALLERGIES: No Known Drug Allergies (NKDA) ENVIRONMENTAL ALLERGIES: - Substance Allergies None Known - Other Allergies None Known NURSING: - Shower allowing shower - Bladder care per protocol - Skin care per protocol PRECAUTIONS: - Weight Bearing Precaution WBAT right LE ACTIVITIES OOB only with supervision THERAPIES: - Dietary and Nutrition Adequate Nutrition. Nutritional Education. Nutritional Supplements. - Occupational Therapy Cognitive Retraining. Evaluate and Treat. Transfer Training. ADL Training. Adaptive Equipment. UE Str engthening. Household Tasks. Patient/Family Education. Safety Awareness. Visual Perceptual Training. - Speech Therapy Cognitive Training. Expressive Language Skills. Memory Strategies. Receptive Language Skills. Speech Intelligibility Training. - Physical Therapy Gait Training. Evaluate and Treat. LE Strengthening. Patient/Family Education. Transfer Training. Mob ility Training. Safety Awareness. Balance Training. PHYSICAL EXAM - Gen Alert and awake Lying in bed No apparent distress Oriented to: person, time, and place - Skin No breakdown Normacephalic - Eyes No abnormalities - Neck No abnormalities - CVS RRR - Chest No abnormalities - Resp Clear to auscultation - Abd Soft - GI Soft Deferred - No abnormalities - Ext No significant edema - MSK 4+/5 weakness in right lower extremity. - Neuro 4/5 strength right lower extremity. - Psych No abnormalities ASSESSMENT: Pt. is a 75 yo Right-handed male.On 08/10/2021 Pt. presented to [facility] with sudden o nset of right-side weakness.On 08/10/2021 he was admitted to [facility] with diagnosis C VA.His impairment category is Stroke 01 - Right Body (Left Brain) (01.2).Pre-morbidly, Pt. was indep endent/mod-I in Locomotion, Safety Awareness, Social Cognition, and Balance; and he had good Transfer s Control, Self-Care, Communication, Endurance, and Sphincter Control.Currently, he has deficits of L ocomotion, Social Cognition, Safety Awareness, Transfers Control, Balance, Sphincter Control, Enduran ce, Self-Care, and Communication.Pt. is now referred to [facility] for acute i n-patient rehabilitation in order to maximize patient's functional independence in activities of mallory y living, strength, ROM, and mobility.- Rehab Goal Patient has realistic goal of being discharged at assistance level 7-Ind to reside at Home with Fami ly/Relatives. MDM/PLAN: - Physical Therapy Gait dysfunction - to improve, our physical therapists will perform initial evaluation of pt's statu s upon admission and devise an individualized program for Gait Training, and Wheel Chair mobility Inability to transfer - to improve, our physical therapists will perform initial evaluation of pt's status upon admission and devise an individualized program for Bed mobility Need for home safety evaluation - to improve, our physical therapists will perform initial evaluatio n of pt's status upon admission and devise an individualized program for Home Evaluation Need in caregiver upon discharge - to improve, our physical therapists will perform initial evaluati on of pt's status upon admission and devise an individualized program for Caregiver Training New precaution - to improve, our physical therapists will perform initial evaluation of pt's status upon admission and devise an individualized program for Patient precaution education Edema - to improve, our physical therapists will perform initial evaluation of pt's status upon admi ssion and devise an individualized program for Elevation Training, and Lymphedema Therapy Poor balance - to improve, our physical therapists will perform initial evaluation of pt's status up on admission and devise an individualized program for Balance Training Poor endurance - to improve, our physical therapists will perform initial evaluation of pt's status upon admission and devise an individualized program for Endurance Training Weakness - to improve, our physical therapists will perform initial evaluation of pt's status upon a dmission and devise an individualized program for Aquatic Therapy, Neuromuscular Reeducation, and Str engthening Achieving independence - to improve, our physical therapists will perform initial evaluation of pt's status upon admission and devise an individualized program for Community Reintegration Activities - Occupational Therapy ADL deficits - to improve, our occupation therapists will perform initial evaluation of pt's status upon admission and devise an individualized program for Bathing, Bed mobility, Community Reintegratio n, Cooking, Dressing, Eating, Fine Motor Skills, Grooming, Homemaking, Kitchen Mobility, Laundry, Pat ient Education, Safety Awareness, Splinting - Positioning, Transfers(Toilet, Tub, Shower), and Wheel Chair Management Cognitive deficits - to improve, our occupation therapists will perform initial evaluation of pt's s tatus upon admission and devise an individualized program for Cognition - orientation Need for care technician - to improve, our occupation therapists will perform initial evaluation of pt's status upon admission and devise an individualized program for Caregiver Training Weakness - to improve, our occupation therapists will perform initial evaluation of pt's status upon admission and devise an individualized program for Aquatic Therapy, Balance, Endurance, UE ROM, and UE strengthening - Other See attached MAR (Medication Administration Record) - Diet Type Continue Regular - Diet - Liquid Texture Continue Regular - Tube Feed Continue N/A - Bladder care per protocol - Weight Bearing Precaution WBAT right LE - Skin care per protocol - Diet - Solid Texture Continue Regular - Shower allowing shower for Dementia, TBI, Stroke, or others FUNCTIONAL STATUS: UPDATED AT WEEKLY TEAM CONFERENCE - Bladder Same accident frequency: 7-Ind - No accidents in the past 7 days - Bowel Same accident frequency: 7-Ind - No accidents in the past 7 days - Walking Same score based on distance walked: 0(N/A) Same score based on distance walked: 1(<=50ft) - Wheelchair Same score based on distance traveled: 0(N/A) FUNCTIONAL STATUS: - Self-Care A. Eating Tuyet B. Grooming sup C. Bathing Rigo D. Dressing - Upper Rigo E. Dressing - Lower modA F. Toileting Rigo - Sphincter Control G. Bladder control sup H. Bowel control sup - Transfers Control I. Bed/Chair/Wheelchair Rigo J. Toilet sup K. Tub/Shower Rigo - Locomotion L. Walk/Wheelchair (B) Rigo M. Stairs modA - Communication N. Comprehension (B) Tuyet O. Expression (B) Tuyet - Social Cognition P. Social Interaction Ind Q. Problem Solving Tuyet R. Memory Tuyet - Endurance Good - Balance Fair - Safety Awareness Fair QI SCORES: - Self-Care A. Eating 03-Partial/moderate assistance B. Oral hygiene 03-Partial/moderate assistance C. Toileting hygiene 02-Substantial/maximal assistance E. Shower/bathe self 02-Substantial/maximal assistance F. Upper body dressing 03-Partial/moderate assistance G. Lower body dressing 03-Partial/moderate assistance H. Putting on/taking off footwear 88-Not attempted due to medical condition or safety concerns - Mobility A. Roll left and right 03-Partial/moderate assistance B. Sit to lying 03-Partial/moderate assistance C. Lying to sitting on side of bed 03-Partial/moderate assistance D. Sit to stand 03-Partial/moderate assistance E. Chair/[id number] transfer 03-Partial/moderate assistance F. Toilet transfer 03-Partial/moderate assistance G. Car transfer 88-Not attempted due to medical condition or safety concerns I. Walk 10 feet 03-Partial/moderate assistance J. Walk 50 feet with two turns 88-Not attempted due to medical condition or safety concerns K. Walk 150 feet 88-Not attempted due to medical condition or safety concerns L. Walking 10 feet on uneven surfaces 88-Not attempted due to medical condition or safety concerns M. 1 step (curb) 88-Not attempted due to medical condition or safety concerns N. 4 steps 88-Not attempted due to medical condition or safety concerns O. 12 steps 88-Not attempted due to medical condition or safety concerns P. Picking up object 03-Partial/moderate assistance R. Wheel 50 feet with two turns 88-Not attempted due to medical condition or safety concerns S. Wheel 150 feet 88-Not attempted due to medical condition or safety concerns - Bladder and Bowel Bladder continence Bowel continence - Endurance Fair - Balance Fair - Safety Awareness Fair [facility] 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
[2021-08-31] MEDS: VANCOMYCIN ORAL SOLN 250 MG/5 ML OSYR PO SCH ×4 (00:01→17:17)
[2021-08-31] MEDS: MIDODRINE HCL 5 MG TABLET PO SCH ×3 (05:29→17:17)
[2021-08-31] MEDS: PANTOPRAZOLE 40MG TABLET PO SCH (05:29)
[2021-08-31] MEDS: LEVOTHYROXINE SOD 0.1 MG TAB PO SCH (06:33)
[2021-08-31] MEDS: LEVOTHYROXINE SOD 0.075 MG TAB PO SCH (06:33)
[2021-08-31] MEDS: AMLODIPINE 2.5 MG TAB PO SCH ×2 (08:00→21:21)
[2021-08-31] MEDS: AMANTADINE 100 MG CAP PO SCH (08:27)
[2021-08-31] MEDS: DABIGATRAN 75 MG CAP PO SCH ×2 (08:28→21:15)
[2021-08-31] MEDS: MESALAMINE 400 MG CAPSULE.DR PO SCH ×2 (08:28→21:01)
[2021-08-31] MEDS: ROSUVASTATIN 10 MG TAB PO SCH (08:28)
--- NOTE | 2021-08-31 08:28 | PN ---
Date of Progress Note: 08/30/2021 Subjective: The patient was seen this morning for followup. No new complaints or problems reported by the patient. He was lying in bed, not in any distress. Doing very well with physical therapy. A ble to ambulate lot better with therapies now. He still has drop in his blood pressure when he stand s up, but he does not have quite the symptoms from drop in the blood pressure like he did before with appropriate treatment so far. Objective: Vital Signs: Reviewed. HEENT: Unremarkable. Lungs: Clear to auscultation. Heart: Sounds normal. Abdomen: Soft. Bowel sounds normal. No guarding, rigidity, tenderness, or distention. Extremities: No leg edema. Impression: 1.Stroke. 2.Orthostatic hypotension. 3.Hyperlipidemia. 4.Paroxysmal atrial fibrillation. 5.Hypertension. 6.Chronic anticoagulation therapy. Plan: We will go ahead and continue current medications. Continue physical therapy under guidance o kassy Pizano. We will continue to use his support stockings to both lower extremities. Continue m idodrine and fludrocortisone. I will see him tomorrow for followup. RADHA/MODL Voice ID: [id number] Report ID: [id number]
[2021-08-31] MEDS: OXcarbazepine 150 MG TAB PO SCH ×2 (08:29→21:01)
[2021-08-31] MEDS: modafiniL 100 MG TAB PO SCH ×2 (08:29→21:01)
[2021-08-31] MEDS: DULOXETINE 20 MG CAP PO SCH (08:29)
[2021-08-31] MEDS: GABAPENTIN 300 MG CAP PO SCH ×3 (08:29→21:01)
[2021-08-31] MEDS: AMIODARONE HCL 200 MG TAB PO SCH (08:30)
[2021-08-31] MEDS: VITAMIN D 5,000 UNIT CAP PO SCH (08:31)
[2021-08-31] MEDS: FLUDROCORTISONE 0.1 MG TAB PO SCH (08:31)
--- NOTE | 2021-08-31 10:20 | P.RH.PN ---
Estimated Length of Stay: 15 Expected Discharge Date: 09/04/21 Discharge Disposition Plan: Home Shelter Goal: Mobility, Transfers, Self Care Vital Signs: Last Vital Signs Temp 97.0 F 08/31/21 08:00 Pulse 67 08/31/21 08:00 Resp 16 08/31/21 08:00 BP 107/78 08/31/21 08:00 Pulse Ox 100 08/31/21 08:00 Laboratory: Laboratory Last Values WBC 6.90 K/uL (4.3-10.9) D 08/30/21 04:27 RBC 3.63 M/uL (4.33-5.43) L 08/30/21 04:27 Hgb 12.8 g/dL (13.6-17.9) L 08/30/21 04:27 Hct 37.2 % (39.6-49.0) L 08/30/21 04:27 MCV 102.5 fL (80-100) H 08/30/21 04:27 MCH 35.2 pg (27.0-35.0) H 08/30/21 04:27 MCHC 34.4 g/dL (32.0-36.0) 08/30/21 04:27 RDW 14.3 % (12.1-15.2) 08/30/21 04:27 Plt Count 269 K/uL (152-406) 08/30/21 04:27 MPV 7.9 fL (7.6-11.3) 08/30/21 04:27 Neutrophils % 63.7 % (41.7-73.7) 08/30/21 04:27 Lymphocytes % 21.4 % (15.3-44.8) 08/30/21 04:27 Monocytes % 8.6 % (3.3-12.3) 08/30/21 04:27 Eosinophils % 5.5 % (0-4.4) H 08/30/21 04:27 Basophils % 0.8 % (0-1.3) 08/30/21 04:27 Absolute Neutrophils 4.4 K/uL (1.8-8.0) 08/30/21 04:27 Absolute Lymphocytes 1.5 K/uL (0.7-4.9) 08/30/21 04:27 Absolute Monocytes 0.6 K/uL (0.1-1.3) 08/30/21 04:27 Absolute Eosinophils 0.4 K/uL (0-0.5) 08/30/21 04:27 Absolute Basophils 0.1 K/uL (0-0.5) 08/30/21 04:27 Sodium 141 mmol/L (136-145) 08/30/21 04:27 Potassium 3.8 mmol/L (3.5-5.1) 08/30/21 04:27 Chloride 106 mmol/L (98-107) 08/30/21 04:27 Carbon Dioxide 30 mmol/L (21-32) 08/30/21 04:27 BUN 14 mg/dL (7-18) 08/30/21 04:27 Creatinine 1.01 mg/dL (0.55-1.3) 08/30/21 04:27 Estimated GFR 72 mL/min (=/>90) L 08/30/21 04:27 Glucose 87 mg/dL (74-106) 08/30/21 04:27 Calcium 8.9 mg/dL (8.5-10.1) 08/30/21 04:27 Magnesium 1.9 08/30/21 04:27 Albumin 3.1 g/dL (3.4-5.0) L 08/30/21 04:27 Prealbumin 20.2 mg/dL (20-40) 08/30/21 04:27 Urine Color Dk yellow (Yellow) 08/21/21 19:45 Urine Appearance Clear (Clear) 08/21/21 19:45 Urine pH 5.5 (5.0-7.0) 08/21/21 19:45 Ur Specific [place] 1.025 (1.005-1.030) 08/21/21 19:45 Glucose (UA)(Auto) Negative (Negative) 08/21/21 19:45 Urine Ketones Negative (Negative) 08/21/21 19:45 Urine Blood Negative (Negative) 08/21/21 19:45 Urine Nitrite Negative (Negative) 08/21/21 19:45 Urine Bilirubin Negative (Negative) 08/21/21 19:45 Urine Urobilinogen 0.2 mg/dL (0.2-1.0) 08/21/21 19:45 Ur Leukocyte Esterase Negative (Negative) 08/21/21 19:45 Urine RBC 10-20 /HPF (NONE SEEN) H 08/21/21 19:45 Urine WBC <5 /HPF (<5) 08/21/21 19:45 Ur Squamous Epith Cells <5 /HPF (NONE SEEN) 08/21/21 19:45 Ur Urothelial Cells <5 /HPF (NONE SEEN) 08/21/21 19:45 Urine Bacteria <20 /HPF (NONE SEEN) 08/21/21 19:45 Hyaline Casts 0-5 /LPF (NONE SEEN) 08/21/21 19:45 Urine Mucus 1+ /HPF (NONE SEEN) 08/21/21 19:45 Urine Culture Reflexed Not needed 08/21/21 19:45 Urine Total Protein Negative (Negative) 08/21/21 19:45 SARS-CoV-2 Rap RNA(RT-PCR) Negative (NEGATIVE) 08/28/21 05:40 Weight: 158 lb 12.8 oz Wound Present: No Closed Surgical Incision Present: No Negative Pressure Wound Therapy Present: No Physician Update: He is making fair overall progress. He walks 250' and up and down15 steps with contact guard assistance. He is at standby assistance for ADL and transfers. He has difficulty with detail oriented tasks. Comment: no skin breakdown per report Functional Improvement: Patient has met all short-term goals w/ the exception of SBA for transfers, and is progressing well toward long-term goals. Patient presents w/ significant balance issues, however willing to work on improvement. Summary: Patient's care plan and halfway goals have been reviewed and revised as necessary. Please see the Rehabilitation Signature page for all necessary signatures.
[2021-08-31] MEDS ORDERED: DABIGATRAN 150 MG CAP PO ONE (21:12)
[2021-09-01] MEDS: VANCOMYCIN ORAL SOLN 250 MG/5 ML OSYR PO SCH ×5 (00:11→23:39)
--- NOTE | 2021-09-01 00:28 | PN ---
Date of Progress Note: 08/31/2021 Subjective: The patient was seen this morning for followup. He was sitting in chair. His was present with him at bedside. Denies any diarrhea or constipation. No nausea. No vomiting. Physical Examination: Vital Signs: Reviewed. This morning, his blood pressure in supine position was 207/100. He did not have any symptoms. Sitting blood pressure was 163/98 and standing was 107/78. HEENT: Examination unremarkable. Lungs: Clear to auscultation. Heart: Sounds normal. Abdomen: Soft. Bowel sounds normal. No guarding, rigidity, tenderness, or distention. Extremities: No leg edema. Impression: 1.Hypertension. 2.Orthostatic hypotension. 3.Clostridium difficile colitis. 4.Stroke. 5.Paroxysmal atrial fibrillation. Plan: We will go ahead and change the dose on the midodrine to 10 mg at 6:00 a.m. and 11:00 a.m. and 5 mg at 5:00 p.m. 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 Continue amlodipine per order to control high blood pressure. Continue anticoagulant medication, which is Pradaxa. Continue physical therapy under guidance of Dr. Pizano. Continue vancomycin per order for Clostridium difficile colitis. I will see him tomorrow for ashleigh alfonso ACA/FABIOLA Voice ID: [id number] Report ID: [id number]
[2021-09-01] MEDS: MIDODRINE HCL 5 MG TABLET PO SCH ×3 (05:16→16:37)
[2021-09-01 05:51] VITALS: BMI 19.5
[2021-09-01] MEDS: LEVOTHYROXINE SOD 0.1 MG TAB PO SCH (07:25)
[2021-09-01] MEDS: LEVOTHYROXINE SOD 0.075 MG TAB PO SCH (07:25)
[2021-09-01] MEDS: ACETAMINOPHEN 500 MG TAB PO PRN (07:25)
[2021-09-01] MEDS: PANTOPRAZOLE 40MG TABLET PO SCH (07:25)
[2021-09-01] MEDS: ROSUVASTATIN 10 MG TAB PO SCH (07:27)
[2021-09-01] MEDS: MESALAMINE 400 MG CAPSULE.DR PO SCH ×2 (07:27→19:58)
[2021-09-01] MEDS: modafiniL 100 MG TAB PO SCH ×3 (07:28→20:00)
[2021-09-01] MEDS: AMANTADINE 100 MG CAP PO SCH (07:28)
[2021-09-01] MEDS: OXcarbazepine 150 MG TAB PO SCH ×2 (07:29→19:58)
[2021-09-01] MEDS: FLUDROCORTISONE 0.1 MG TAB PO SCH (07:29)
[2021-09-01] MEDS: GABAPENTIN 300 MG CAP PO SCH ×3 (07:29→19:58)
[2021-09-01] MEDS: AMLODIPINE 2.5 MG TAB PO SCH ×2 (07:30→19:57)
[2021-09-01] MEDS: DULOXETINE 20 MG CAP PO SCH (07:30)
[2021-09-01] MEDS: VITAMIN D 5,000 UNIT CAP PO SCH (07:30)
[2021-09-01] MEDS: AMIODARONE HCL 200 MG TAB PO SCH (07:37)
[2021-09-01] MEDS: DABIGATRAN 75 MG CAP PO SCH ×2 (09:26→19:58)
--- NOTE | 2021-09-01 19:45 | R.PN ---
PROGRESS NOTES ENCOUNTER DATE AND TIME: 09/01/2021 19:41 (LEATHER TANNER) NAME NEERU JJ DATE OF : 1945 DATE OF ADMISSION: 08/21/2021 19:34 (LEATHER TANNER) CVACHIEF COMPLAINT: Stroke, right sided weakness, multiple sclerosis SUBJECTIVE: Pt denied any depression. Pt denied any Shortness of Breath. Ambulated 1000' with contact guard assistance with a rolling walker. WBC 6.9, Hgb 12.8, prealbumin 20.2. 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 Covid-19 is negative. VITAL SIGNS Temperature: 98.0 F SBP/DBP: 86 to 186/72 to 94 Pulse: 50 to 76 Resp: 16 MEDICATION ALLERGIES: No Known Drug Allergies (NKDA) ENVIRONMENTAL ALLERGIES: - Substance Allergies None Known - Other Allergies None Known NURSING: - Shower allowing shower - Bladder care per protocol - Skin care per protocol PRECAUTIONS: - Weight Bearing Precaution WBAT right LE ACTIVITIES OOB only with supervision THERAPIES: - Dietary and Nutrition Adequate Nutrition. Nutritional Education. Nutritional Supplements. - Occupational Therapy Cognitive Retraining. Evaluate and Treat. Transfer Training. ADL Training. Adaptive Equipment. UE Str engthening. Household Tasks. Patient/Family Education. Safety Awareness. Visual Perceptual Training. - Speech Therapy Cognitive Training. Expressive Language Skills. Memory Strategies. Receptive Language Skills. Speech Intelligibility Training. - Physical Therapy Gait Training. Evaluate and Treat. LE Strengthening. Patient/Family Education. Transfer Training. Mob ility Training. Safety Awareness. Balance Training. PHYSICAL EXAM - Gen Alert and awake Lying in bed No apparent distress Oriented to: person, time, and place - Skin No breakdown Normacephalic - Eyes No abnormalities - Neck No abnormalities - CVS RRR - Chest No abnormalities - Resp Clear to auscultation - Abd Soft - GI Soft Deferred - No abnormalities - Ext No significant edema - MSK 4+/5 weakness in right lower extremity. - Neuro 4/5 strength right lower extremity. - Psych No abnormalities ASSESSMENT: Pt. is a 75 yo Right-handed male.On 08/10/2021 Pt. presented to [facility] with sudden o nset of right-side weakness.On 08/10/2021 he was admitted to [facility] with diagnosis C VA.His impairment category is Stroke 01 - Right Body (Left Brain) (01.2).Pre-morbidly, Pt. was indep endent/mod-I in Locomotion, Safety Awareness, Social Cognition, and Balance; and he had good Transfer s Control, Self-Care, Communication, Endurance, and Sphincter Control.Currently, he has deficits of L ocomotion, Social Cognition, Safety Awareness, Transfers Control, Balance, Sphincter Control, Enduran ce, Self-Care, and Communication.Pt. is now referred to [facility] for acute i n-patient rehabilitation in order to maximize patient's functional independence in activities of mallory y living, strength, ROM, and mobility.- Rehab Goal Patient has realistic goal of being discharged at assistance level 7-Ind to reside at Home with Fami ly/Relatives. MDM/PLAN: - Physical Therapy Gait dysfunction - to improve, our physical therapists will perform initial evaluation of pt's statu s upon admission and devise an individualized program for Gait Training, and Wheel Chair mobility Inability to transfer - to improve, our physical therapists will perform initial evaluation of pt's status upon admission and devise an individualized program for Bed mobility Need for home safety evaluation - to improve, our physical therapists will perform initial evaluatio n of pt's status upon admission and devise an individualized program for Home Evaluation Need in caregiver upon discharge - to improve, our physical therapists will perform initial evaluati on of pt's status upon admission and devise an individualized program for Caregiver Training New precaution - to improve, our physical therapists will perform initial evaluation of pt's status upon admission and devise an individualized program for Patient precaution education Edema - to improve, our physical therapists will perform initial evaluation of pt's status upon admi ssion and devise an individualized program for Elevation Training, and Lymphedema Therapy Poor balance - to improve, our physical therapists will perform initial evaluation of pt's status up on admission and devise an individualized program for Balance Training Poor endurance - to improve, our physical therapists will perform initial evaluation of pt's status upon admission and devise an individualized program for Endurance Training Weakness - to improve, our physical therapists will perform initial evaluation of pt's status upon a dmission and devise an individualized program for Aquatic Therapy, Neuromuscular Reeducation, and Str engthening Achieving independence - to improve, our physical therapists will perform initial evaluation of pt's status upon admission and devise an individualized program for Community Reintegration Activities - Occupational Therapy ADL deficits - to improve, our occupation therapists will perform initial evaluation of pt's status upon admission and devise an individualized program for Bathing, Bed mobility, Community Reintegratio n, Cooking, Dressing, Eating, Fine Motor Skills, Grooming, Homemaking, Kitchen Mobility, Laundry, Pat ient Education, Safety Awareness, Splinting - Positioning, Transfers(Toilet, Tub, Shower), and Wheel Chair Management Cognitive deficits - to improve, our occupation therapists will perform initial evaluation of pt's s tatus upon admission and devise an individualized program for Cognition - orientation Need for rn progressive care unit - to improve, our occupation therapists will perform initial evaluation of pt's status upon admission and devise an individualized program for Caregiver Training Weakness - to improve, our occupation therapists will perform initial evaluation of pt's status upon admission and devise an individualized program for Aquatic Therapy, Balance, Endurance, UE ROM, and UE strengthening - Other See attached MAR (Medication Administration Record) - Diet Type Continue Regular - Diet - Liquid Texture Continue Regular - Tube Feed Continue N/A - Bladder care per protocol - Weight Bearing Precaution WBAT right LE - Skin care per protocol - Diet - Solid Texture Continue Regular - Shower allowing shower for Dementia, TBI, Stroke, or others FUNCTIONAL STATUS: UPDATED AT WEEKLY TEAM CONFERENCE - Bladder Same accident frequency: 7-Ind - No accidents in the past 7 days - Bowel Same accident frequency: 7-Ind - No accidents in the past 7 days - Walking Same score based on distance walked: 0(N/A) Same score based on distance walked: 1(<=50ft) - Wheelchair Same score based on distance traveled: 0(N/A) FUNCTIONAL STATUS: - Self-Care A. Eating Tuyet B. Grooming sup C. Bathing Rigo D. Dressing - Upper Rigo E. Dressing - Lower modA F. Toileting Rigo - Sphincter Control G. Bladder control sup H. Bowel control sup - Transfers Control I. Bed/Chair/Wheelchair Rigo J. Toilet sup K. Tub/Shower Rigo - Locomotion L. Walk/Wheelchair (B) Rigo M. Stairs modA - Communication N. Comprehension (B) Tuyet O. Expression (B) Tuyet - Social Cognition P. Social Interaction Ind Q. Problem Solving Tuyet R. Memory Tuyet - Endurance Good - Balance Fair - Safety Awareness Fair QI SCORES: - Self-Care A. Eating 03-Partial/moderate assistance B. Oral hygiene 03-Partial/moderate assistance C. Toileting hygiene 02-Substantial/maximal assistance E. Shower/bathe self 02-Substantial/maximal assistance F. Upper body dressing 03-Partial/moderate assistance G. Lower body dressing 03-Partial/moderate assistance H. Putting on/taking off footwear 88-Not attempted due to medical condition or safety concerns - Mobility A. Roll left and right 03-Partial/moderate assistance B. Sit to lying 03-Partial/moderate assistance C. Lying to sitting on side of bed 03-Partial/moderate assistance D. Sit to stand 03-Partial/moderate assistance E. Chair/lla-yy-wtxfy transfer 03-Partial/moderate assistance F. Toilet transfer 03-Partial/moderate assistance G. Car transfer 88-Not attempted due to medical condition or safety concerns I. Walk 10 feet 03-Partial/moderate assistance J. Walk 50 feet with two turns 88-Not attempted due to medical condition or safety concerns K. Walk 150 feet 88-Not attempted due to medical condition or safety concerns L. Walking 10 feet on uneven surfaces 88-Not attempted due to medical condition or safety concerns M. 1 step (curb) 88-Not attempted due to medical condition or safety concerns N. 4 steps 88-Not attempted due to medical condition or safety concerns O. 12 steps 88-Not attempted due to medical condition or safety concerns P. Picking up object 03-Partial/moderate assistance R. Wheel 50 feet with two turns 88-Not attempted due to medical condition or safety concerns S. Wheel 150 feet 88-Not attempted due to medical condition or safety concerns - Bladder and Bowel Bladder continence Bowel continence - Endurance Fair - Balance Fair - Safety Awareness Fair CURRENT FUNC. DEFICITS: Self-Care, Mobility, Endurance, Balance, and Safety Awareness SIGNATURE PANEL: (LEATHER TANNER)
--- NOTE | 2021-09-02 | PN ---
Date of Progress Note: 09/01/2021 Subjective: The patient was seen this morning for followup. He was sitting in the chair. His was present with him at bedside. Denies any constipation or diarrhea. Objective: Vital Signs: Reviewed. HEENT: Examination unremarkable. Lungs: Clear to auscultation. Heart: Sounds normal. Abdomen: Soft. Bowel sounds normal. No guarding, rigidity, tenderness, or distention. Extremities: No leg edema. Impression: 1.Orthostatic hypotension. 2.Clostridium difficile colitis. 3.Hypertension. 4.Paroxysmal atrial fibrillation. 5.Stroke. 6.Chronic anticoagulation therapy. Plan: We will go ahead and continue current vancomycin. We will continue midodrine per order. The patient also has amlodipine that we use it for blood pressure control as needed and continue physical therapy under guidance of Dr. Pizano. I will see him tomorrow for followup. We did have discussion again today while the patient was in the chair in presence of his that wh en he goes home, he will need to try to go ahead and when he is either sitting or lying down in the b ed as long as he is awake, I would like for him not to stay stagnant and keep moving his arms or legs , and every time he tries to get up, he needs to get up slowly instead of getting up abruptly, and th jackson are all ongoing instructions that he will need to follow in order for him to reduce any magnitude and severity of his drop in the blood pressure. So far, since his arrival to rehab stay, he has don e very well with all this instruction including using his leg stockings, which he was instructed to use it a ll the time during day. RADHA/MODL Voice ID: [id number] Report ID: [id number]
[2021-09-02] MEDS: MIDODRINE HCL 5 MG TABLET PO SCH ×3 (05:12→16:53)
[2021-09-02] MEDS: VANCOMYCIN ORAL SOLN 250 MG/5 ML OSYR PO SCH ×4 (05:12→23:38)
[2021-09-02] MEDS: PANTOPRAZOLE 40MG TABLET PO SCH (05:12)
[2021-09-02] MEDS: LEVOTHYROXINE SOD 0.1 MG TAB PO SCH (06:38)
[2021-09-02] MEDS: LEVOTHYROXINE SOD 0.075 MG TAB PO SCH (06:38)
[2021-09-02] MEDS: AMIODARONE HCL 200 MG TAB PO SCH ×2 (08:00→10:00)
[2021-09-02] MEDS: AMLODIPINE 2.5 MG TAB PO SCH ×2 (08:00→20:02)
[2021-09-02] MEDS: DABIGATRAN 75 MG CAP PO SCH ×2 (08:01→20:02)
[2021-09-02] MEDS: MESALAMINE 400 MG CAPSULE.DR PO SCH ×2 (08:01→20:02)
[2021-09-02] MEDS: ROSUVASTATIN 10 MG TAB PO SCH (08:02)
[2021-09-02] MEDS: GABAPENTIN 300 MG CAP PO SCH ×3 (08:02→20:02)
[2021-09-02] MEDS: modafiniL 100 MG TAB PO SCH (08:02)
[2021-09-02] MEDS: FLUDROCORTISONE 0.1 MG TAB PO SCH (08:02)
[2021-09-02] MEDS: AMANTADINE 100 MG CAP PO SCH (08:04)
[2021-09-02] MEDS: DULOXETINE 20 MG CAP PO SCH (08:04)
[2021-09-02] MEDS: VITAMIN D 5,000 UNIT CAP PO SCH (08:04)
[2021-09-02] MEDS: OXcarbazepine 150 MG TAB PO SCH ×2 (08:04→20:02)
[2021-09-02] MEDS ORDERED: modafiniL 100 MG TAB PO ONE (10:00)
--- NOTE | 2021-09-02 12:09 | PN ---
Date of Progress Note: 09/02/2021 Subjective: The patient was seen this morning for followup. No new complaints or problems reported by the patient. He was sitting in the chair. Denies any complaints this morning. No dizziness when he sits, stands or walks. Objective: Vital Signs: Reviewed. HEENT: Unremarkable. Lungs: Clear to auscultation. Heart: Sounds normal. Abdomen: Soft. Bowel sounds normal. No guarding, rigidity, tenderness, distention. Extremities: No leg edema. Impression: 1.Stroke. 2.Clostridium difficile colitis. 3.Chronic anticoagulation therapy. 4.Chronic atrial fibrillation. 5.Hypertension. 6.Orthostatic hypotension. Plan: We will go ahead and continue current vancomycin. We will continue current blood pressure med ication with parameters to hold and continue midodrine and fludrocortisone. We will continue vancomy geno. I will see him tomorrow for followup. RADHA/MODL Voice ID: [id number] Report ID: [id number]
[2021-09-03] MEDS: MIDODRINE HCL 5 MG TABLET PO SCH ×3 (05:19→17:13)
[2021-09-03] MEDS: VANCOMYCIN ORAL SOLN 250 MG/5 ML OSYR PO SCH ×4 (05:19→23:22)
[2021-09-03] MEDS: PANTOPRAZOLE 40MG TABLET PO SCH (05:19)
[2021-09-03] MEDS: LEVOTHYROXINE SOD 0.1 MG TAB PO SCH (05:20)
[2021-09-03] MEDS: LEVOTHYROXINE SOD 0.075 MG TAB PO SCH (05:20)
[2021-09-03] MEDS: AMLODIPINE 2.5 MG TAB PO SCH ×2 (08:00→20:00)
[2021-09-03] MEDS ORDERED: modafiniL 100 MG TAB PO SCH ×2 (08:00)
[2021-09-03] MEDS: MESALAMINE 400 MG CAPSULE.DR PO SCH ×2 (08:33→20:07)
[2021-09-03] MEDS: ROSUVASTATIN 10 MG TAB PO SCH (08:34)
[2021-09-03] MEDS: DABIGATRAN 75 MG CAP PO SCH ×2 (08:48→20:07)
[2021-09-03] MEDS: GABAPENTIN 300 MG CAP PO SCH ×3 (08:49→20:07)
[2021-09-03] MEDS: FLUDROCORTISONE 0.1 MG TAB PO SCH (08:49)
[2021-09-03] MEDS: AMANTADINE 100 MG CAP PO SCH (08:49)
[2021-09-03] MEDS: DULOXETINE 20 MG CAP PO SCH (08:50)
[2021-09-03] MEDS: AMIODARONE HCL 200 MG TAB PO SCH (08:50)
[2021-09-03] MEDS: OXcarbazepine 150 MG TAB PO SCH ×2 (08:50→20:07)
[2021-09-03] MEDS: VITAMIN D 5,000 UNIT CAP PO SCH (08:50)
[2021-09-03] MEDS: modafiniL 100 MG TAB PO SCH (08:52)
[2021-09-03] MEDS ORDERED: modafiniL 100 MG TAB PO ONE (10:00)
--- NOTE | 2021-09-03 17:13 | R.PN ---
PROGRESS NOTES ENCOUNTER DATE AND TIME: 09/03/2021 17:09 (COPY CLERK) NAME NEERU JJ DATE OF : 1945 DATE OF ADMISSION: 08/21/2021 19:34 (COPY CLERK) CVACHIEF COMPLAINT: Stroke, right sided weakness, multiple sclerosis SUBJECTIVE: Pt denied any depression. Pt denied any Shortness of Breath. Ambulated 250' with contact guard assistance with a rolling walker. Up and down 15 steps with contact guard assistance. WBC 6.9, Hgb 12.8, prealbumin 20.2. 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 Covid-19 is negative. VITAL SIGNS Temperature: 98.1 F SBP/DBP: 131/81 Pulse: 57 Resp: 16 MEDICATION ALLERGIES: No Known Drug Allergies (NKDA) ENVIRONMENTAL ALLERGIES: - Substance Allergies None Known - Other Allergies None Known NURSING: - Shower allowing shower - Bladder care per protocol - Skin care per protocol PRECAUTIONS: - Weight Bearing Precaution WBAT right LE ACTIVITIES OOB only with supervision THERAPIES: - Dietary and Nutrition Adequate Nutrition. Nutritional Education. Nutritional Supplements. - Occupational Therapy Cognitive Retraining. Evaluate and Treat. Transfer Training. ADL Training. Adaptive Equipment. UE Str engthening. Household Tasks. Patient/Family Education. Safety Awareness. Visual Perceptual Training. - Speech Therapy Cognitive Training. Expressive Language Skills. Memory Strategies. Receptive Language Skills. Speech Intelligibility Training. - Physical Therapy Gait Training. Evaluate and Treat. LE Strengthening. Patient/Family Education. Transfer Training. Mob ility Training. Safety Awareness. Balance Training. PHYSICAL EXAM - Gen Alert and awake Lying in bed No apparent distress Oriented to: person, time, and place - Skin No breakdown Normacephalic - Eyes No abnormalities - Neck No abnormalities - CVS RRR - Chest No abnormalities - Resp Clear to auscultation - Abd Soft - GI Soft Deferred - No abnormalities - Ext No significant edema - MSK 4+/5 weakness in right lower extremity. - Neuro 4/5 strength right lower extremity. - Psych No abnormalities ASSESSMENT: Pt. is a 75 yo Right-handed male.On 08/10/2021 Pt. presented to [facility] with sudden o nset of right-side weakness.On 08/10/2021 he was admitted to [facility] with diagnosis C VA.His impairment category is Stroke 01 - Right Body (Left Brain) (01.2).Pre-morbidly, Pt. was indep endent/mod-I in Locomotion, Safety Awareness, Social Cognition, and Balance; and he had good Transfer s Control, Self-Care, Communication, Endurance, and Sphincter Control.Currently, he has deficits of L ocomotion, Social Cognition, Safety Awareness, Transfers Control, Balance, Sphincter Control, Enduran ce, Self-Care, and Communication.Pt. is now referred to [facility] for acute i n-patient rehabilitation in order to maximize patient's functional independence in activities of mallory y living, strength, ROM, and mobility.- Rehab Goal Patient has realistic goal of being discharged at assistance level 7-Ind to reside at Home with Fami ly/Relatives. MDM/PLAN: - Physical Therapy Gait dysfunction - to improve, our physical therapists will perform initial evaluation of pt's statu s upon admission and devise an individualized program for Gait Training, and Wheel Chair mobility Inability to transfer - to improve, our physical therapists will perform initial evaluation of pt's status upon admission and devise an individualized program for Bed mobility Need for home safety evaluation - to improve, our physical therapists will perform initial evaluatio n of pt's status upon admission and devise an individualized program for Home Evaluation Need in caregiver upon discharge - to improve, our physical therapists will perform initial evaluati on of pt's status upon admission and devise an individualized program for Caregiver Training New precaution - to improve, our physical therapists will perform initial evaluation of pt's status upon admission and devise an individualized program for Patient precaution education Edema - to improve, our physical therapists will perform initial evaluation of pt's status upon admi ssion and devise an individualized program for Elevation Training, and Lymphedema Therapy Poor balance - to improve, our physical therapists will perform initial evaluation of pt's status up on admission and devise an individualized program for Balance Training Poor endurance - to improve, our physical therapists will perform initial evaluation of pt's status upon admission and devise an individualized program for Endurance Training Weakness - to improve, our physical therapists will perform initial evaluation of pt's status upon a dmission and devise an individualized program for Aquatic Therapy, Neuromuscular Reeducation, and Str engthening Achieving independence - to improve, our physical therapists will perform initial evaluation of pt's status upon admission and devise an individualized program for Community Reintegration Activities - Occupational Therapy ADL deficits - to improve, our occupation therapists will perform initial evaluation of pt's status upon admission and devise an individualized program for Bathing, Bed mobility, Community Reintegratio n, Cooking, Dressing, Eating, Fine Motor Skills, Grooming, Homemaking, Kitchen Mobility, Laundry, Pat ient Education, Safety Awareness, Splinting - Positioning, Transfers(Toilet, Tub, Shower), and Wheel Chair Management Cognitive deficits - to improve, our occupation therapists will perform initial evaluation of pt's s tatus upon admission and devise an individualized program for Cognition - orientation Need for primary care coordinator - to improve, our occupation therapists will perform initial evaluation of pt's status upon admission and devise an individualized program for Caregiver Training Weakness - to improve, our occupation therapists will perform initial evaluation of pt's status upon admission and devise an individualized program for Aquatic Therapy, Balance, Endurance, UE ROM, and UE strengthening - Other See attached MAR (Medication Administration Record) - Diet Type Continue Regular - Diet - Liquid Texture Continue Regular - Tube Feed Continue N/A - Bladder care per protocol - Weight Bearing Precaution WBAT right LE - Skin care per protocol - Diet - Solid Texture Continue Regular - Shower allowing shower for Dementia, TBI, Stroke, or others FUNCTIONAL STATUS: UPDATED AT WEEKLY TEAM CONFERENCE - Bladder Same accident frequency: 7-Ind - No accidents in the past 7 days - Bowel Same accident frequency: 7-Ind - No accidents in the past 7 days - Walking Same score based on distance walked: 0(N/A) Same score based on distance walked: 1(<=50ft) - Wheelchair Same score based on distance traveled: 0(N/A) FUNCTIONAL STATUS: - Self-Care A. Eating Tuyet B. Grooming sup C. Bathing Rigo D. Dressing - Upper Rigo E. Dressing - Lower modA F. Toileting Rigo - Sphincter Control G. Bladder control sup H. Bowel control sup - Transfers Control I. Bed/Chair/Wheelchair Rigo J. Toilet sup K. Tub/Shower Rigo - Locomotion L. Walk/Wheelchair (B) Rigo M. Stairs modA - Communication N. Comprehension (B) Tuyet O. Expression (B) Tuyet - Social Cognition P. Social Interaction Ind Q. Problem Solving Tuyet R. Memory Tuyet - Endurance Good - Balance Fair - Safety Awareness Fair QI SCORES: - Self-Care A. Eating 03-Partial/moderate assistance B. Oral hygiene 03-Partial/moderate assistance C. Toileting hygiene 02-Substantial/maximal assistance E. Shower/bathe self 02-Substantial/maximal assistance F. Upper body dressing 03-Partial/moderate assistance G. Lower body dressing 03-Partial/moderate assistance H. Putting on/taking off footwear 88-Not attempted due to medical condition or safety concerns - Mobility A. Roll left and right 03-Partial/moderate assistance B. Sit to lying 03-Partial/moderate assistance C. Lying to sitting on side of bed 03-Partial/moderate assistance D. Sit to stand 03-Partial/moderate assistance E. Chair/gcw-hh-[id number] transfer 03-Partial/moderate assistance F. Toilet transfer 03-Partial/moderate assistance G. Car transfer 88-Not attempted due to medical condition or safety concerns I. Walk 10 feet 03-Partial/moderate assistance J. Walk 50 feet with two turns 88-Not attempted due to medical condition or safety concerns K. Walk 150 feet 88-Not attempted due to medical condition or safety concerns L. Walking 10 feet on uneven surfaces 88-Not attempted due to medical condition or safety concerns M. 1 step (curb) 88-Not attempted due to medical condition or safety concerns N. 4 steps 88-Not attempted due to medical condition or safety concerns O. 12 steps 88-Not attempted due to medical condition or safety concerns P. Picking up object 03-Partial/moderate assistance R. Wheel 50 feet with two turns 88-Not attempted due to medical condition or safety concerns S. Wheel 150 feet 88-Not attempted due to medical condition or safety concerns - Bladder and Bowel Bladder continence Bowel continence - Endurance Fair - Balance Fair - Safety Awareness Fair [facility] DEFICITS: Self-Care, Mobility, Endurance, Balance, and Safety Awareness SIGNATURE PANEL: (COPY CLERK)
[2021-09-04] MEDS: LEVOTHYROXINE SOD 0.075 MG TAB PO SCH (05:14)
[2021-09-04] MEDS: VANCOMYCIN ORAL SOLN 250 MG/5 ML OSYR PO SCH ×2 (05:14→12:25)
[2021-09-04] MEDS: LEVOTHYROXINE SOD 0.1 MG TAB PO SCH (05:14)
[2021-09-04] MEDS: MIDODRINE HCL 5 MG TABLET PO SCH ×3 (05:14→16:55)
[2021-09-04] MEDS: PANTOPRAZOLE 40MG TABLET PO SCH ×2 (06:30→08:33)
--- NOTE | 2021-09-04 06:34 | PN ---
Date of Progress Note: 09/03/2021 Subjective: The patient was seen this morning for followup. No new complaints or problems reported by patient. He was lying in bed, not in distress. Objective: Vital Signs: Reviewed. HEENT: Unremarkable. Lungs: Clear to auscultation. Heart: Sounds normal. Abdomen: Soft. Bowel sounds normal. No guarding, rigidity, tenderness, or distention. Extremity: No leg edema. Impression: 1.Stroke. 2.Paroxysmal atrial fibrillation. 3.Orthostatic hypotension. 4.Clostridium difficile colitis. 5.Hypertension. Plan: We will continue current antibiotic, which is vancomycin. Continue Pradaxa. We will continue physical therapy under guidance of Dr. Pizano. The patient remains on midodrine and fludrocortiso ne for orthostatic hypotension and I will see him tomorrow for followup. RADHA/MODL Voice ID: [id number] Report ID: [id number]
[2021-09-04] MEDS: AMLODIPINE 2.5 MG TAB PO SCH ×2 (08:00→20:00)
[2021-09-04] MEDS: MESALAMINE 400 MG CAPSULE.DR PO SCH ×2 (08:31→20:35)
[2021-09-04] MEDS: DABIGATRAN 75 MG CAP PO SCH ×2 (08:32→20:35)
[2021-09-04] MEDS: OXcarbazepine 150 MG TAB PO SCH ×2 (08:32→20:35)
[2021-09-04] MEDS: GABAPENTIN 300 MG CAP PO SCH ×3 (08:32→20:35)
[2021-09-04] MEDS: modafiniL 100 MG TAB PO SCH (08:32)
[2021-09-04] MEDS: ROSUVASTATIN 10 MG TAB PO SCH (08:33)
[2021-09-04] MEDS: AMANTADINE 100 MG CAP PO SCH (08:33)
[2021-09-04] MEDS: VITAMIN D 5,000 UNIT CAP PO SCH (08:34)
[2021-09-04] MEDS: DULOXETINE 20 MG CAP PO SCH (08:34)
[2021-09-04] MEDS: AMIODARONE HCL 200 MG TAB PO SCH (08:34)
[2021-09-04] MEDS: FLUDROCORTISONE 0.1 MG TAB PO SCH (08:34)
[2021-09-05] MEDS: LEVOTHYROXINE SOD 0.075 MG TAB PO SCH (06:00)
[2021-09-05] MEDS: MIDODRINE HCL 5 MG TABLET PO SCH ×3 (06:00→17:22)
[2021-09-05] MEDS: LEVOTHYROXINE SOD 0.1 MG TAB PO SCH (06:00)
--- NOTE | 2021-09-05 06:18 | PN ---
Date of Progress Note: 09/04/2021 Subjective: The patient was seen this morning for followup. No new complaints or problems reported by the patient. No diarrhea. No abdominal pain. No nausea, vomiting. Objective: Vital Signs: Reviewed. HEENT: Unremarkable. Lungs: Clear to auscultation. Heart: Sounds normal. Abdomen: Soft. Bowel sounds normal. No guarding, rigidity, tenderness, distention. Extremities: No leg edema. Impression: 1.Clostridium difficile colitis. 2.Orthostatic hypotension. 3.Stroke. 4.Paroxysmal atrial fibrillation. 5.Chronic anticoagulation therapy. 6.Hypertension. Plan: We will go ahead and discontinue vancomycin as the patient has received adequate number of day s of treatment and his stool for C diff which was collected on August 27 came back negative. His midodrine will be continued along with fludrocortisone. We will continue physical therapy under guid ance of Dr. Pizano. RADHA/MODL Voice ID: [id number] Report ID: [id number]
[2021-09-05] MEDS: AMLODIPINE 2.5 MG TAB PO SCH ×2 (08:00→19:54)
[2021-09-05] MEDS: FLUDROCORTISONE 0.1 MG TAB PO SCH (08:19)
[2021-09-05] MEDS: DULOXETINE 20 MG CAP PO SCH (08:19)
[2021-09-05] MEDS: OXcarbazepine 150 MG TAB PO SCH ×2 (08:19→19:53)
[2021-09-05] MEDS: ROSUVASTATIN 10 MG TAB PO SCH (08:20)
[2021-09-05] MEDS: AMANTADINE 100 MG CAP PO SCH (08:20)
[2021-09-05] MEDS: PANTOPRAZOLE 40MG TABLET PO SCH (08:20)
[2021-09-05] MEDS: GABAPENTIN 300 MG CAP PO SCH ×3 (08:21→19:53)
[2021-09-05] MEDS: VITAMIN D 5,000 UNIT CAP PO SCH (08:21)
[2021-09-05] MEDS: DABIGATRAN 75 MG CAP PO SCH ×2 (08:22→19:53)
[2021-09-05] MEDS: AMIODARONE HCL 200 MG TAB PO SCH (08:22)
[2021-09-05] MEDS: MESALAMINE 400 MG CAPSULE.DR PO SCH ×2 (08:23→19:54)
[2021-09-05] MEDS: modafiniL 100 MG TAB PO SCH (08:24)
--- NOTE | 2021-09-05 16:46 | R.PN ---
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 Pt denied any Shortness of Breath. Ambulated 250' with contact guard assistance with a rolling walker. WBC 6.9, Hgb 12.8, prealbumin 20.2. Communications Superintendent 1.01. Covid-19 is negative. VITAL SIGNS Temperature: 98.4 F SBP/DBP: 97 to 183/66 to 92 Pulse: 50 to 68 Resp: 15 MEDICATION ALLERGIES: No Known Drug Allergies (NKDA) ENVIRONMENTAL ALLERGIES: - Substance Allergies None Known - Other Allergies None Known NURSING: - Shower allowing shower - Bladder care per protocol - Skin care per protocol PRECAUTIONS: - Weight Bearing Precaution WBAT right LE ACTIVITIES OOB only with supervision THERAPIES: - Dietary and Nutrition Adequate Nutrition. Nutritional Education. Nutritional Supplements. - Occupational Therapy Cognitive Retraining. Evaluate and Treat. Transfer Training. ADL Training. Adaptive Equipment. UE Str engthening. Household Tasks. Patient/Family Education. Safety Awareness. Visual Perceptual Training. - Speech Therapy Cognitive Training. Expressive Language Skills. Memory Strategies. Receptive Language Skills. Speech Intelligibility Training. - Physical Therapy Gait Training. Evaluate and Treat. LE Strengthening. Patient/Family Education. Transfer Training. Mob ility Training. Safety Awareness. Balance Training. PHYSICAL EXAM - Gen Alert and awake Lying in bed No apparent distress Oriented to: person, time, and place - Skin No breakdown Normacephalic - Eyes No abnormalities - Neck No abnormalities - CVS RRR - Chest No abnormalities - Resp Clear to auscultation - Abd Soft - GI Soft Deferred - No abnormalities - Ext No significant edema - MSK 4+/5 weakness in right lower extremity. - Neuro 4/5 strength right lower extremity. - Psych No abnormalities ASSESSMENT: Pt. is a 75 yo Right-handed male.On 08/10/2021 Pt. presented to [facility] with sudden o nset of right-side weakness.On 08/10/2021 he was admitted to [facility] with diagnosis C VA.His impairment category is Stroke 01 - Right Body (Left Brain) (01.2).Pre-morbidly, Pt. was indep endent/mod-I in Locomotion, Safety Awareness, Social Cognition, and Balance; and he had good Transfer s Control, Self-Care, Communication, Endurance, and Sphincter Control.Currently, he has deficits of L ocomotion, Social Cognition, Safety Awareness, Transfers Control, Balance, Sphincter Control, Enduran ce, Self-Care, and Communication.Pt. is now referred to [facility] for acute i n-patient rehabilitation in order to maximize patient's functional independence in activities of mallory y living, strength, ROM, and mobility.- Rehab Goal Patient has realistic goal of being discharged at assistance level 7-Ind to reside at Home with Fami ly/Relatives. MDM/PLAN: - Physical Therapy Gait dysfunction - to improve, our physical therapists will perform initial evaluation of pt's statu s upon admission and devise an individualized program for Gait Training, and Wheel Chair mobility Inability to transfer - to improve, our physical therapists will perform initial evaluation of pt's status upon admission and devise an individualized program for Bed mobility Need for home safety evaluation - to improve, our physical therapists will perform initial evaluatio n of pt's status upon admission and devise an individualized program for Home Evaluation Need in caregiver upon discharge - to improve, our physical therapists will perform initial evaluati on of pt's status upon admission and devise an individualized program for Caregiver Training New precaution - to improve, our physical therapists will perform initial evaluation of pt's status upon admission and devise an individualized program for Patient precaution education Edema - to improve, our physical therapists will perform initial evaluation of pt's status upon admi ssion and devise an individualized program for Elevation Training, and Lymphedema Therapy Poor balance - to improve, our physical therapists will perform initial evaluation of pt's status up on admission and devise an individualized program for Balance Training Poor endurance - to improve, our physical therapists will perform initial evaluation of pt's status upon admission and devise an individualized program for Endurance Training Weakness - to improve, our physical therapists will perform initial evaluation of pt's status upon a dmission and devise an individualized program for Aquatic Therapy, Neuromuscular Reeducation, and Str engthening Achieving independence - to improve, our physical therapists will perform initial evaluation of pt's status upon admission and devise an individualized program for Community Reintegration Activities - Occupational Therapy ADL deficits - to improve, our occupation therapists will perform initial evaluation of pt's status upon admission and devise an individualized program for Bathing, Bed mobility, Community Reintegratio n, Cooking, Dressing, Eating, Fine Motor Skills, Grooming, Homemaking, Kitchen Mobility, Laundry, Pat ient Education, Safety Awareness, Splinting - Positioning, Transfers(Toilet, Tub, Shower), and Wheel Chair Management Cognitive deficits - to improve, our occupation therapists will perform initial evaluation of pt's s tatus upon admission and devise an individualized program for Cognition - orientation Need for care trainer - to improve, our occupation therapists will perform initial evaluation of pt's status upon admission and devise an individualized program for Caregiver Training Weakness - to improve, our occupation therapists will perform initial evaluation of pt's status upon admission and devise an individualized program for Aquatic Therapy, Balance, Endurance, UE ROM, and UE strengthening - Other See attached MAR (Medication Administration Record) - Diet Type Continue Regular - Diet - Liquid Texture Continue Regular - Tube Feed Continue N/A - Bladder care per protocol - Weight Bearing Precaution WBAT right LE - Skin care per protocol - Diet - Solid Texture Continue Regular - Shower allowing shower for Dementia, TBI, Stroke, or others FUNCTIONAL STATUS: UPDATED AT WEEKLY TEAM CONFERENCE - Bladder Same accident frequency: 7-Ind - No accidents in the past 7 days - Bowel Same accident frequency: 7-Ind - No accidents in the past 7 days - Walking Same score based on distance walked: 0(N/A) Same score based on distance walked: 1(<=50ft) - Wheelchair Same score based on distance traveled: 0(N/A) FUNCTIONAL STATUS: - Self-Care A. Eating Tuyet B. Grooming sup C. Bathing Rigo D. Dressing - Upper Rigo E. Dressing - Lower modA F. Toileting Rigo - Sphincter Control G. Bladder control sup H. Bowel control sup - Transfers Control I. Bed/Chair/Wheelchair Rigo J. Toilet sup K. Tub/Shower Rigo - Locomotion L. Walk/Wheelchair (B) Rigo M. Stairs modA - Communication N. Comprehension (B) Tuyet O. Expression (B) Tuyet - Social Cognition P. Social Interaction Ind Q. Problem Solving Tuyet R. Memory Tuyet - Endurance Good - Balance Fair - Safety Awareness Fair QI SCORES: - Self-Care A. Eating 03-Partial/moderate assistance B. Oral hygiene 03-Partial/moderate assistance C. Toileting hygiene 02-Substantial/maximal assistance E. Shower/bathe self 02-Substantial/maximal assistance F. Upper body dressing 03-Partial/moderate assistance G. Lower body dressing 03-Partial/moderate assistance H. Putting on/taking off footwear 88-Not attempted due to medical condition or safety concerns - Mobility A. Roll left and right 03-Partial/moderate assistance B. Sit to lying 03-Partial/moderate assistance C. Lying to sitting on side of bed 03-Partial/moderate assistance D. Sit to stand 03-Partial/moderate assistance E. Chair/gmo-hw-mttbo transfer 03-Partial/moderate assistance F. Toilet transfer 03-Partial/moderate assistance G. Car transfer 88-Not attempted due to medical condition or safety concerns I. Walk 10 feet 03-Partial/moderate assistance J. Walk 50 feet with two turns 88-Not attempted due to medical condition or safety concerns K. Walk 150 feet 88-Not attempted due to medical condition or safety concerns L. Walking 10 feet on uneven surfaces 88-Not attempted due to medical condition or safety concerns M. 1 step (curb) 88-Not attempted due to medical condition or safety concerns N. 4 steps 88-Not attempted due to medical condition or safety concerns O. 12 steps 88-Not attempted due to medical condition or safety concerns P. Picking up object 03-Partial/moderate assistance R. Wheel 50 feet with two turns 88-Not attempted due to medical condition or safety concerns S. Wheel 150 feet 88-Not attempted due to medical condition or safety concerns - Bladder and Bowel Bladder continence Bowel continence - Endurance Fair - Balance Fair - Safety Awareness Fair CURRENT FUNC. DEFICITS: Self-Care, Mobility, Endurance, Balance, and Safety Awareness SIGNATURE PANEL: (CLINICAL OPERATIONS CONSULTANT)
[2021-09-06] MEDS: MIDODRINE HCL 5 MG TABLET PO SCH ×4 (05:20→17:24)
[2021-09-06] MEDS: LEVOTHYROXINE SOD 0.075 MG TAB PO SCH (05:20)
[2021-09-06] MEDS: LEVOTHYROXINE SOD 0.1 MG TAB PO SCH (05:20)
--- NOTE | 2021-09-06 05:52 | PN ---
Date of Progress Note: 09/05/2021 Subjective: The patient was seen this morning for followup. No new complaints or problems reported by the patient. He was lying in bed, not in distress. Denies any diarrhea. No nausea, vomiting. Lucila woods has completed his vancomycin therapy for C diff colitis. He is participating well with physical th erapy. Does not have any dizziness when he stands or walks. Objective: Vital Signs: Reviewed. HEENT: Unremarkable. Lungs: Clear to auscultation. Heart: Sounds normal. Abdomen: Soft. Bowel sounds normal. No guarding, rigidity, tenderness, distention. Extremities: No leg edema. Impression: 1.Stroke with right-sided hemiparesis. 2.Paroxysmal atrial fibrillation. 3.Chronic anticoagulation therapy. 4.Hypertension. 5.Clostridium difficile colitis. 6.Orthostatic hypotension. Plan: We will go ahead and continue physical therapy under guidance of Dr. Pizano. Continue curre nt antihypertensive medication which is amlodipine per order and continue midodrine as well as fludro cortisone. The patient has completed his treatment for Clostridium difficile colitis and we should r epeat his stool for C diff probably sometime next week on Friday or , and this will be done as outpatient. He w as made aware of this. RADHA/MODL Voice ID: [id number] Report ID: [id number]
[2021-09-06 07:29] LABS: Absolute Lymphocytes (CBC) 1.3 K/uL (0.7-4.9); Hematocrit 42.8 % (39.6-49.0); Lymphocytes % 21.5 % (15.3-44.8); MPV 8.8 fL (7.6-11.3); RBC Red Blood Cell Count 4.17 M/uL (4.33-5.43)
[2021-09-06] MEDS: PANTOPRAZOLE 40MG TABLET PO SCH (07:31)
[2021-09-06 07:49] LABS: Albumin 3.6 g/dL (3.4-5.0); Potassium 3.8 mmol/L (3.5-5.1); Prealbumin 19.8 mg/dL (20-40)
[2021-09-06] MEDS: AMLODIPINE 2.5 MG TAB PO SCH ×2 (08:00→19:51)
[2021-09-06] MEDS: modafiniL 100 MG TAB PO SCH (08:21)
[2021-09-06] MEDS: ROSUVASTATIN 10 MG TAB PO SCH (08:25)
[2021-09-06] MEDS: MESALAMINE 400 MG CAPSULE.DR PO SCH ×2 (08:25→19:50)
[2021-09-06] MEDS: DABIGATRAN 75 MG CAP PO SCH ×2 (08:25→19:50)
[2021-09-06] MEDS: GABAPENTIN 300 MG CAP PO SCH ×3 (08:25→19:51)
[2021-09-06] MEDS: VITAMIN D 5,000 UNIT CAP PO SCH (08:26)
[2021-09-06] MEDS: AMANTADINE 100 MG CAP PO SCH (08:26)
[2021-09-06] MEDS: OXcarbazepine 150 MG TAB PO SCH ×2 (08:26→19:50)
[2021-09-06] MEDS: DULOXETINE 20 MG CAP PO SCH (08:27)
[2021-09-06] MEDS: FLUDROCORTISONE 0.1 MG TAB PO SCH (08:27)
[2021-09-06] MEDS: AMIODARONE HCL 200 MG TAB PO SCH (08:28)
[2021-09-06 17:02] LABS: Magnesium 1.9
--- NOTE | 2021-09-06 18:19 | R.PN ---
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 Pt denied any Shortness of Breath. Ambulated 500' with contact guard assistance with a rolling walker. Self-propelled wheelchair 500' wi th independence. WBC 6.2, Hgb 14.2, prealbumin 19.8 Streaming Media Specialist 0.99. Covid-19 is negative. VITAL SIGNS Temperature: 98.4 F SBP/DBP: 94/71 Pulse: 70 Resp: 15 MEDICATION ALLERGIES: No Known Drug Allergies (NKDA) ENVIRONMENTAL ALLERGIES: - Substance Allergies None Known - Other Allergies None Known NURSING: - Shower allowing shower - Bladder care per protocol - Skin care per protocol PRECAUTIONS: - Weight Bearing Precaution WBAT right LE ACTIVITIES OOB only with supervision THERAPIES: - Dietary and Nutrition Adequate Nutrition. Nutritional Education. Nutritional Supplements. - Occupational Therapy Cognitive Retraining. Evaluate and Treat. Transfer Training. ADL Training. Adaptive Equipment. UE Str engthening. Household Tasks. Patient/Family Education. Safety Awareness. Visual Perceptual Training. - Speech Therapy Cognitive Training. Expressive Language Skills. Memory Strategies. Receptive Language Skills. Speech Intelligibility Training. - Physical Therapy Gait Training. Evaluate and Treat. LE Strengthening. Patient/Family Education. Transfer Training. Mob ility Training. Safety Awareness. Balance Training. PHYSICAL EXAM - Gen Alert and awake Lying in bed No apparent distress Oriented to: person, time, and place - Skin No breakdown Normacephalic - Eyes No abnormalities - Neck No abnormalities - CVS RRR - Chest No abnormalities - Resp Clear to auscultation - Abd Soft - GI Soft Deferred - No abnormalities - Ext No significant edema - MSK 4+/5 weakness in right lower extremity. - Neuro 4/5 strength right lower extremity. - Psych No abnormalities ASSESSMENT: Pt. is a 75 yo Right-handed male.On 08/10/2021 Pt. presented to [facility] with sudden o nset of right-side weakness.On 08/10/2021 he was admitted to [facility] with diagnosis C VA.His impairment category is Stroke 01 - Right Body (Left Brain) (01.2).Pre-morbidly, Pt. was indep endent/mod-I in Locomotion, Safety Awareness, Social Cognition, and Balance; and he had good Transfer s Control, Self-Care, Communication, Endurance, and Sphincter Control.Currently, he has deficits of L ocomotion, Social Cognition, Safety Awareness, Transfers Control, Balance, Sphincter Control, Enduran ce, Self-Care, and Communication.Pt. is now referred to [facility] for acute i n-patient rehabilitation in order to maximize patient's functional independence in activities of mallory y living, strength, ROM, and mobility.- Rehab Goal Patient has realistic goal of being discharged at assistance level 7-Ind to reside at Home with Fami ly/Relatives. MDM/PLAN: - Physical Therapy Gait dysfunction - to improve, our physical therapists will perform initial evaluation of pt's statu s upon admission and devise an individualized program for Gait Training, and Wheel Chair mobility Inability to transfer - to improve, our physical therapists will perform initial evaluation of pt's status upon admission and devise an individualized program for Bed mobility Need for home safety evaluation - to improve, our physical therapists will perform initial evaluatio n of pt's status upon admission and devise an individualized program for Home Evaluation Need in caregiver upon discharge - to improve, our physical therapists will perform initial evaluati on of pt's status upon admission and devise an individualized program for Caregiver Training New precaution - to improve, our physical therapists will perform initial evaluation of pt's status upon admission and devise an individualized program for Patient precaution education Edema - to improve, our physical therapists will perform initial evaluation of pt's status upon admi ssion and devise an individualized program for Elevation Training, and Lymphedema Therapy Poor balance - to improve, our physical therapists will perform initial evaluation of pt's status up on admission and devise an individualized program for Balance Training Poor endurance - to improve, our physical therapists will perform initial evaluation of pt's status upon admission and devise an individualized program for Endurance Training Weakness - to improve, our physical therapists will perform initial evaluation of pt's status upon a dmission and devise an individualized program for Aquatic Therapy, Neuromuscular Reeducation, and Str engthening Achieving independence - to improve, our physical therapists will perform initial evaluation of pt's status upon admission and devise an individualized program for Community Reintegration Activities - Occupational Therapy ADL deficits - to improve, our occupation therapists will perform initial evaluation of pt's status upon admission and devise an individualized program for Bathing, Bed mobility, Community Reintegratio n, Cooking, Dressing, Eating, Fine Motor Skills, Grooming, Homemaking, Kitchen Mobility, Laundry, Pat ient Education, Safety Awareness, Splinting - Positioning, Transfers(Toilet, Tub, Shower), and Wheel Chair Management Cognitive deficits - to improve, our occupation therapists will perform initial evaluation of pt's s tatus upon admission and devise an individualized program for Cognition - orientation Need for animal care provider - to improve, our occupation therapists will perform initial evaluation of pt's status upon admission and devise an individualized program for Caregiver Training Weakness - to improve, our occupation therapists will perform initial evaluation of pt's status upon admission and devise an individualized program for Aquatic Therapy, Balance, Endurance, UE ROM, and UE strengthening - Other See attached MAR (Medication Administration Record) - Diet Type Continue Regular - Diet - Liquid Texture Continue Regular - Tube Feed Continue N/A - Bladder care per protocol - Weight Bearing Precaution WBAT right LE - Skin care per protocol - Diet - Solid Texture Continue Regular - Shower allowing shower for Dementia, TBI, Stroke, or others FUNCTIONAL STATUS: UPDATED AT WEEKLY TEAM CONFERENCE - Bladder Same accident frequency: 7-Ind - No accidents in the past 7 days - Bowel Same accident frequency: 7-Ind - No accidents in the past 7 days - Walking Same score based on distance walked: 0(N/A) Same score based on distance walked: 1(<=50ft) - Wheelchair Same score based on distance traveled: 0(N/A) FUNCTIONAL STATUS: - Self-Care A. Eating Tuyet B. Grooming sup C. Bathing Rigo D. Dressing - Upper Rigo E. Dressing - Lower modA F. Toileting Rigo - Sphincter Control G. Bladder control sup H. Bowel control sup - Transfers Control I. Bed/Chair/Wheelchair Rigo J. Toilet sup K. Tub/Shower Rigo - Locomotion L. Walk/Wheelchair (B) Rigo M. Stairs modA - Communication N. Comprehension (B) Tuyet O. Expression (B) Tuyet - Social Cognition P. Social Interaction Ind Q. Problem Solving Tuyet R. Memory Tuyet - Endurance Good - Balance Fair - Safety Awareness Fair QI SCORES: - Self-Care A. Eating 03-Partial/moderate assistance B. Oral hygiene 03-Partial/moderate assistance C. Toileting hygiene 02-Substantial/maximal assistance E. Shower/bathe self 02-Substantial/maximal assistance F. Upper body dressing 03-Partial/moderate assistance G. Lower body dressing 03-Partial/moderate assistance H. Putting on/taking off footwear 88-Not attempted due to medical condition or safety concerns - Mobility A. Roll left and right 03-Partial/moderate assistance B. Sit to lying 03-Partial/moderate assistance C. Lying to sitting on side of bed 03-Partial/moderate assistance D. Sit to stand 03-Partial/moderate assistance E. Chair/[id number] transfer 03-Partial/moderate assistance F. Toilet transfer 03-Partial/moderate assistance G. Car transfer 88-Not attempted due to medical condition or safety concerns I. Walk 10 feet 03-Partial/moderate assistance J. Walk 50 feet with two turns 88-Not attempted due to medical condition or safety concerns K. Walk 150 feet 88-Not attempted due to medical condition or safety concerns L. Walking 10 feet on uneven surfaces 88-Not attempted due to medical condition or safety concerns M. 1 step (curb) 88-Not attempted due to medical condition or safety concerns N. 4 steps 88-Not attempted due to medical condition or safety concerns O. 12 steps 88-Not attempted due to medical condition or safety concerns P. Picking up object 03-Partial/moderate assistance R. Wheel 50 feet with two turns 88-Not attempted due to medical condition or safety concerns S. Wheel 150 feet 88-Not attempted due to medical condition or safety concerns - Bladder and Bowel Bladder continence Bowel continence - Endurance Fair - Balance Fair - Safety Awareness Fair [facility] 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
[2021-09-07] MEDS: LEVOTHYROXINE SOD 0.1 MG TAB PO SCH (05:30)
[2021-09-07] MEDS: MIDODRINE HCL 5 MG TABLET PO SCH ×3 (05:31→16:53)
[2021-09-07] MEDS: LEVOTHYROXINE SOD 0.075 MG TAB PO SCH (05:31)
[2021-09-07] MEDS: PANTOPRAZOLE 40MG TABLET PO SCH (07:17)
[2021-09-07] MEDS: AMLODIPINE 2.5 MG TAB PO SCH ×3 (08:00→19:54)
[2021-09-07] MEDS: DABIGATRAN 75 MG CAP PO SCH ×2 (08:38→19:53)
[2021-09-07] MEDS: modafiniL 100 MG TAB PO SCH (08:38)
[2021-09-07] MEDS: MESALAMINE 400 MG CAPSULE.DR PO SCH ×2 (08:38→19:53)
[2021-09-07] MEDS: ROSUVASTATIN 10 MG TAB PO SCH (08:39)
[2021-09-07] MEDS: VITAMIN D 5,000 UNIT CAP PO SCH (08:39)
[2021-09-07] MEDS: OXcarbazepine 150 MG TAB PO SCH ×2 (08:39→19:53)
[2021-09-07] MEDS: FLUDROCORTISONE 0.1 MG TAB PO SCH (08:40)
[2021-09-07] MEDS: AMANTADINE 100 MG CAP PO SCH (08:40)
[2021-09-07] MEDS: DULOXETINE 20 MG CAP PO SCH (08:40)
[2021-09-07] MEDS: AMIODARONE HCL 200 MG TAB PO SCH (08:41)
[2021-09-07] MEDS: GABAPENTIN 300 MG CAP PO SCH ×3 (08:43→19:53)
--- NOTE | 2021-09-07 10:17 | P.RH.PN ---
Estimated Length of Stay: 17 Expected Discharge Date: 09/08/21 Discharge Disposition Plan: Home Family Support: Yes Halfway Goal: Mobility, Transfers, Self Care Vital Signs: Last Vital Signs Temp 97.4 F 09/07/21 07:13 Pulse 108 H 09/07/21 08:00 Resp 16 09/07/21 07:13 BP 62/52 L 09/07/21 08:00 Pulse Ox 98 09/07/21 07:13 Laboratory: Laboratory Last Values WBC 6.20 K/uL (4.3-10.9) 09/06/21 06:32 RBC 4.17 M/uL (4.33-5.43) L 09/06/21 06:32 Hgb 14.2 g/dL (13.6-17.9) 09/06/21 06:32 Hct 42.8 % (39.6-49.0) D 09/06/21 06:32 MCV 102.6 fL (80-100) H 09/06/21 06:32 MCH 34.0 pg (27.0-35.0) 09/06/21 06:32 MCHC 33.1 g/dL (32.0-36.0) 09/06/21 06:32 RDW 14.3 % (12.1-15.2) 09/06/21 06:32 Plt Count 263 K/uL (152-406) 09/06/21 06:32 MPV 8.8 fL (7.6-11.3) D 09/06/21 06:32 Neutrophils % 61.6 % (41.7-73.7) 09/06/21 06:32 Lymphocytes % 21.5 % (15.3-44.8) 09/06/21 06:32 Monocytes % 10.2 % (3.3-12.3) 09/06/21 06:32 Eosinophils % 6.0 % (0-4.4) H 09/06/21 06:32 Basophils % 0.7 % (0-1.3) 09/06/21 06:32 Absolute Neutrophils 3.8 K/uL (1.8-8.0) 09/06/21 06:32 Absolute Lymphocytes 1.3 K/uL (0.7-4.9) 09/06/21 06:32 Absolute Monocytes 0.6 K/uL (0.1-1.3) 09/06/21 06:32 Absolute Eosinophils 0.4 K/uL (0-0.5) 09/06/21 06:32 Absolute Basophils 0.0 K/uL (0-0.5) 09/06/21 06:32 Sodium 141 mmol/L (136-145) 09/06/21 06:32 Potassium 3.8 mmol/L (3.5-5.1) 09/06/21 06:32 Chloride 108 mmol/L (98-107) H 09/06/21 06:32 Carbon Dioxide 29 mmol/L (21-32) 09/06/21 06:32 BUN 14 mg/dL (7-18) 09/06/21 06:32 Creatinine 0.99 mg/dL (0.55-1.3) 09/06/21 06:32 Estimated GFR 74 mL/min (=/>90) L 09/06/21 06:32 Glucose 100 mg/dL (74-106) 09/06/21 06:32 Calcium 9.3 mg/dL (8.5-10.1) 09/06/21 06:32 Magnesium 1.9 09/06/21 06:32 Albumin 3.6 g/dL (3.4-5.0) 09/06/21 06:32 Prealbumin 19.8 mg/dL (20-40) L 09/06/21 06:32 Urine Color Dk yellow (Yellow) 08/21/21 19:45 Urine Appearance Clear (Clear) 08/21/21 19:45 Urine pH 5.5 (5.0-7.0) 08/21/21 19:45 Ur Specific [place] 1.025 (1.005-1.030) 08/21/21 19:45 Glucose (UA)(Auto) Negative (Negative) 08/21/21 19:45 Urine Ketones Negative (Negative) 08/21/21 19:45 Urine Blood Negative (Negative) 08/21/21 19:45 Urine Nitrite Negative (Negative) 08/21/21 19:45 Urine Bilirubin Negative (Negative) 08/21/21 19:45 Urine Urobilinogen 0.2 mg/dL (0.2-1.0) 08/21/21 19:45 Ur Leukocyte Esterase Negative (Negative) 08/21/21 19:45 Urine RBC 10-20 /HPF (NONE SEEN) H 08/21/21 19:45 Urine WBC <5 /HPF (<5) 08/21/21 19:45 Ur Squamous Epith Cells <5 /HPF (NONE SEEN) 08/21/21 19:45 Ur Urothelial Cells <5 /HPF (NONE SEEN) 08/21/21 19:45 Urine Bacteria <20 /HPF (NONE SEEN) 08/21/21 19:45 Hyaline Casts 0-5 /LPF (NONE SEEN) 08/21/21 19:45 Urine Mucus 1+ /HPF (NONE SEEN) 08/21/21 19:45 Urine Culture Reflexed Not needed 08/21/21 19:45 Urine Total Protein Negative (Negative) 08/21/21 19:45 SARS-CoV-2 Rap RNA(RT-PCR) Negative (NEGATIVE) 09/04/21 04:35 Weight: 160 lb Wound Present: No Closed Surgical Incision Present: No Negative Pressure Wound Therapy Present: No Physician Update: He made good progress with all therapy. Labs were reviewed and are good. Will D/C in the AM with out patient physical and possible speech. Comment: no skin breakdown per report Functional Improvement: Patient has met all short-term goals at this time, and is progressing well toward long-term goals. Patient is severely limited by impulsivity, and inconsistent pacing. Patient follows instruction well, however is self-limited by above stated. Summary: Patient's care plan and extermination supervisor goals have been reviewed and revised as necessary. Please see the Rehabilitation Signature page for all necessary signatures.
--- NOTE | 2021-09-07 12:22 | PN ---
Date of Progress Note: 09/06/2021 Subjective: The patient was seen this morning for followup. He was lying in bed, not in distress. No new complaints or problems reported by the patient. Objective: Vital Signs: Reviewed. HEENT: Unremarkable. Lungs: Clear to auscultation. Heart: Sounds normal. Abdomen: Soft. Bowel sounds normal. No guarding, rigidity, tenderness, distention. Extremities: No leg edema. Laboratory Data: White count 6.2, hemoglobin 14.2, platelets 263. Sodium 141, potassium 3.8, chlori de 108, bicarb 29, BUN 14, creatinine 0.99, glucose 100. Impression: 1.Orthostatic hypotension. 2.Stroke. 3.Hypertension. 4.Paroxysmal atrial fibrillation. 5.Chronic anticoagulation therapy. Plan: We will go ahead and continue medical management for orthostatic hypotension with medications as prescribed. Continue to monitor blood pressures with antihypertensive medication as per order. W e will continue Pradaxa and continue to provide physical therapy under guidance of Dr. Pizano. The patient is scheduled to go home over the weekend. RADHA/MODL Voice ID: [id number] Report ID: [id number]
[2021-09-08] MEDS: LEVOTHYROXINE SOD 0.075 MG TAB PO SCH (05:25)
[2021-09-08] MEDS: LEVOTHYROXINE SOD 0.1 MG TAB PO SCH (05:25)
[2021-09-08] MEDS: MIDODRINE HCL 5 MG TABLET PO SCH ×2 (05:25→11:08)
[2021-09-08 07:49] VITALS: TEMP 98
[2021-09-08] MEDS: PANTOPRAZOLE 40MG TABLET PO SCH (07:59)
[2021-09-08] MEDS: AMLODIPINE 2.5 MG TAB PO SCH (08:00)
[2021-09-08] MEDS: modafiniL 100 MG TAB PO SCH (08:41)
[2021-09-08] MEDS: MESALAMINE 400 MG CAPSULE.DR PO SCH (08:41)
[2021-09-08] MEDS: FLUDROCORTISONE 0.1 MG TAB PO SCH (08:42)
[2021-09-08] MEDS: OXcarbazepine 150 MG TAB PO SCH (08:42)
[2021-09-08] MEDS: ROSUVASTATIN 10 MG TAB PO SCH (08:42)
[2021-09-08] MEDS: VITAMIN D 5,000 UNIT CAP PO SCH (08:42)
[2021-09-08] MEDS: DULOXETINE 20 MG CAP PO SCH (08:42)
[2021-09-08] MEDS: AMANTADINE 100 MG CAP PO SCH (08:42)
[2021-09-08] MEDS: GABAPENTIN 300 MG CAP PO SCH (08:42)
[2021-09-08] MEDS: AMIODARONE HCL 200 MG TAB PO SCH (08:43)
[2021-09-08] MEDS: DABIGATRAN 75 MG CAP PO SCH (08:43)
[2021-09-08 09:08] VITALS: O2SAT 97
[2021-09-08 11:08] VITALS: BP 110/65
--- NOTE | 2021-09-08 16:04 | PN ---
Date of Progress Note: 09/07/2021 Subjective: The patient was seen this morning for followup. No new complaints or problems reported by the patient. He is feeling overall better. No dizziness. No diarrhea. Objective: Vital Signs: Reviewed. HEENT: Examination unremarkable. Lungs: Clear to auscultation. Heart: Sounds normal. Abdomen: Soft. Bowel sounds normal. No guarding, rigidity, tenderness, or distention. Extremities: No leg edema. Impression: 1.Stroke. 2.Paroxysmal atrial fibrillation. 3.Orthostatic hypotension. 4.Hypertension. Plan: We will continue current medical management. Continue current midodrine and fludrocortisone. Continue p.r.n. use of amlodipine for high blood pressure and current anticoagulation therapy. The patient is scheduled to go home tomorrow, and I will see him tomorrow for followup. RADHA/MODL Voice ID: [id number] Report ID: [id number]
--- NOTE | 2021-09-09 07:55 | DS ---
Date of Discharge: 09/08/2021 Disposition: Discharged to go home. Physical Examination: HEENT: Unremarkable. LUNGS: Clear to auscultation. HEART: Sounds normal. ABDOMEN: Soft, bowel sounds normal. No guarding, rigidity, tenderness, or distention. EXTREMITIES: No leg edema. NEURO: Right-sided hemiparesis with power 4/5 in right upper and right lower extremity. Overall doi ng much better than before. The facial asymmetry has almost completely resolved better than before. Laboratory Data: Upon admission to rehab 08/22/2021, white count 7.2, hemoglobin 12.9, platelets 276 , and last CBC from 09/06/2021, white count 6.2, hemoglobin 14.2, platelets 260. Last chemistry from 09/06/2021, sodium 141, potassium 3.8, chloride 108, bicarb 29, BUN 14, and creatinine was 0.99, glu cose 100, and albumin 3.6. Discharge Medications/instructions: 1.Continue all prior home medications. 2.Check blood pressure every morning and every evening and if his systolic blood pressure is higher than 160, then take amlodipine 2.5 mg at that time. 3.Start midodrine 5 mg tablet. The patient will take two tablets by mouth at 6 a.m., 11 a.m., and o ne tablet by mouth at 5 p.m. 4.Take fludrocortisone 0.1 mg take 1 tablet by mouth daily in morning. 5.Follow up at my office a week after next on 09/18/2021 at 10 a.m. 6.The patient to come to office to pepper picker order for stool test and drop a stool specimen at our [facility] on next week, or Friday, and this will be stool for C. diff. Hospital Course: A 75-year-old pleasant male patient admitted to rehab floor from the medical floor for inpatient rehab therapy. The patient participated well with the physical therapy under guidance of Dr. Pizano. He has significant orthostatic hypotension, but he has responded well to midodrine and fludrocortisone, and he still has problem with his blood pressure dropping in sitting and standin g position compared to lying position, but at least with the use of medication he has been able to pa rticipate as well with the physical therapy and his dizziness problem that was related to orthostatic hypotension has resolved now. His diarrhea problem from Clostridium difficile colitis has resolved. He did finish taking his antibiotic, which is vancomycin and vancomycin was discontinued sometime l ast week and he has not had any recurrence of diarrhea. Overall, his condition has improved and toda y he will be discharged to go home in stable condition with above-mentioned medications and instructi ons. Final Diagnoses: 1.Stroke with right-sided hemiparesis. 2.Orthostatic hypotension. 3.Clostridium difficile colitis. 4.Hypertension. 5.Trigeminal neuralgia. 6.Hypothyroidism. 7.Impaired fasting glucose. 8.Hypertension. 9.Hyperlipidemia. 10.Coronary artery disease. 11.Allergic rhinitis. 12.Impaired fasting glucose. 13.Chronic atrial fibrillation. 14.Chronic anticoagulation therapy. 15.Gastroesophageal reflux disease. 16.Ulcerative colitis. 17.Benign prostatic hypertrophy. RADHA/MODL Voice ID: [id number] Report ID: [id number]
== END 2021-09-08 14:00 | disposition home health service (06) | DRG 57 ==
LOC: 5TH 19:34
PROVIDERS: ADMIT Internal Medicine; ATTEND Internal Medicine
DX: I69.351 Hemiplegia and hemiparesis following cerebral infarction affecting right dominant side (principal); A04.72 Enterocolitis due to Clostridium difficile, not specified as recurrent; I48.20 Chronic atrial fibrillation, unspecified; I95.9 Hypotension, unspecified; I10 Essential (primary) hypertension; G50.0 Trigeminal neuralgia; E03.9 Hypothyroidism, unspecified; E78.5 Hyperlipidemia, unspecified; I25.10 Atherosclerotic heart disease of native coronary artery without angina pectoris; J30.9 Allergic rhinitis, unspecified; K21.9 Gastro-esophageal reflux disease without esophagitis; N40.0 Benign prostatic hyperplasia without lower urinary tract symptoms; G35 Multiple sclerosis; Z20.822 Contact with and (suspected) exposure to COVID-19; Z79.01 Long term (current) use of anticoagulants
CPT/HCPCS: 36415; 80048; 81001; 82040; 83735; 84134; 85025; 87086; 87088; 87493; 90471; 90732; 92507; 92523; 92526; 97110; 97112; 97116; 97127; 97129; 97161; 97530; 97542; U0003

== ENCOUNTER 2021-11-28 14:40 | Emergency (ER) | payer OTHER ==
--- OUTSIDE RECORDS SUMMARY | 2021-11-28 14:46 | XMS REPORT | Continuity of Care Document ---
:1945 Author Organization [facility] t Address [address] [place] [address] Care Team Providers Name Role Phone Timothy GLEZ Primary Care Physician Unavailable RENEE Attending Clinician Unavailable Oliva Lim MD Attending Clinician TODD Attending Clinician Unavailable BHARGAVI Attending Clinician Unavailable VIEJAS Attending Clinician Unavailable MD JOELLE BROOKS Attending Clinician Unavailable Renee RAMOS Attending Clinician ADRYAN LIM Attending Clinician Unavailable BRET Attending Clinician Unavailable MD BHARGAVI RAntonino Attending Clinician Unavailable Lab, Fam Pob I Attending Clinician Unavailable Aneshama START UP SPECIALIST Attending Clinician LAITH Attending Clinician Unavailable Doctor Unassigned, Name Attending Clinician Unavailable IRAIDA Attending Clinician Unavailable GUSTAVO Attending Clinician Unavailable EDWIGE Attending Clinician Unavailable José Miguel RAMOS, P Attending Clinician RENEE Admitting Clinician Unavailable TODD Admitting Clinician Unavailable VIEJAS Admitting Clinician Unavailable MD JOELLE BROOKS Admitting Clinician Unavailable BRET Admitting Clinician Unavailable BHARGAVI Admitting Clinician Unavailable MD Gene BURK Admitting Clinician Unavailable Payers Payer Name Policy Type Policy Number Effective Date Expiration Date S [facility] [place] A B [id number] 2011 2017 00:00:00 00:00:00 [employer] MEDICARE [id number] 2017 2020 ADV 00:00:00 00:00:00 AETNA INDEMNITY [id number] 2012 2016 NON CONTR 00:00:00 00:00:00 [facility] [id number] 2020 2020 00:00:00 00:00:00 UNITED MEDICARE [id number] 2020 HMO 00:00:00 MEDICARE ADVANTAGE [id number] 2020 PPO - [facility] 00:00:00 ZZZTRS-CARE [id number] 2020 MEDICARE ADVANTAGE 00:00:00 MEDICARE PART A [id number] \T\ B - MEDICARE INDEMNITY/TRADITIO [id number] NAL CHOICE - AETNA Problems Condition Condition Condition Status Onset Resolution Last Treating Co mments Source Name Details Category Date Date Treatment Clinician Date ANAYELI ANAYELI Disease Active [facility] (obstructi (obstructi 10-21 Co llege ve sleep ve sleep 00:00: of apnea) apnea) 00 Medicin e Chronic Chronic Disease Active [facility] atrial atrial 3 College fibrillati fibrillati 00:00: of on on 00 Medicin e 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 8-19 [facility] (HCCode) (HCCode) 00:00: of 00 Medicin e [place] 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 [place] Class ity of S [facility] Social History Social Habit Start Date Stop Date Quantity Comments Source History [facility], [facility] Del[place] ge of Alcohol Std Medicine Drinks History [facility] ge of Alcohol Binge Medicine Alcohol intake 2021-10-15 2021-10-15 .29 /d [facility] Col lege of 00:00:00 00:00:00 Medicine Exposure to 2021-09-08 2021-10-08 Yes [facility] Colleg e of SARS-CoV-2 00:00:00 11:42:00 Medicine (event) History SDOH 2019-08-23 2019-08-23 2 [facility] Colle ge of Alcohol Frequency 00:00:00 00:00:00 Medicin e Alcohol Comment 2016-04-08 2016-04-08 social [facility] Co llege of 00:00:00 00:00:00 Medicine Tobacco use and 2015-03-15 2015-03-15 Smokeless tobacco [facility] College of exposure 00:00:00 00:00:00 non-user Medicine History of 1977-03-[address] [facility] ollege of tobacco use 00:00:00 Medicine Sex Ass[birth year] [facility] 00:00:00 00:00:00 [facility] Smoking Status Start Date Stop Date Source Unknown if ever smoked [facility] Ex-smoker 2015-03-15 00:00:00 2015-03-15 00:00:00 [facility] olle of Medicine Medications Ordered Filled Start Stop Current Ordering Indication Dosage Frequency Signature Comments Components Source Medication Medication Date Date Medication? Clinician (SIG) Name Name Dabigatran Yes Take by [facility] Etexilate 3-21 mouth two Colle ge Mesylate 09:45: times of 150 MG CAPS 41 daily. Medici n e Mesalamine Yes Take by [place] [facility] 1.2 g TBEC 3-21 mouth. [place] 09:45: of 41 Medicin e Cholecalcif Yes 5000mg Take 5,000 [facility] kerline 3-21 mg by [place] (VITAMIN D 09:45: mouth of OR) 41 daily. Medicin e Ocrelizumab Yes Inject [facility] (OCREVUS) 3-21 into the [facility] e 300 MG/10ML 09:45: vein once. of injection 41 Medicin e duloxetine Yes 20mg Take 20 mg [facility] (CYMBALTA) 3-21 by mouth Colle ge 20 MG 09:45: daily. of capsule 41 Medicin e levothyroxi Yes 175ug Take 175 [facility] ne 3-21 mcg by [place] (SYNTHROID) 09:45: mouth of 175 MCG 41 daily. Medicin tablet e oxcarbazepi Yes 300mg Take 300 [facility] ne 3-21 mg by [place] (TRILEPTAL) 09:45: mouth two o f 300 MG 41 times Medicin tablet daily. e Alfuzosin Yes [id number] TAKE ONE [facility] HCl 10 MG 2-22 9100 TABLET BY [facility] ge TB24 00:00: MOUTH AT of 00 BEDTIME Medicin e amlodipine Yes as needed. [facility] (NORVASC) 2-12 [place] 2.5 MG 00:00: of tablet 00 Medicin e Amantadine 2020-07 Yes TAKE ONE [facility] HCl 100 MG 2-13 TABLET BY [facility] TABS 00:00: MOUTH of 00 TWICE A Medicin DAY e modafinil Yes TAKE ONE [facility] (PROVIGIL) 9-24 TABLET BY [facility] 200 MG 00:00: MOUTH of tablet 00 TWICE A Medicin DAY e Dabigatran Yes Take by [place] [facility] Etexilate 9-20 mouth two Colle ge Mesylate 10:10: times of (PRADAXA) 55 daily. Medicin 150 MG CAPS e Mesalamine Yes Take by [place] [facility] (LIALDA) 9-20 mouth. College 1.2 G TBEC 10:10: of 55 Medicin e Cholecalcif Yes 5000mg Take 5,000 [facility] kerline 9-20 mg by [place] (VITAMIN D 10:10: mouth of OR) 55 [...] 175 [facility] ne 9-20 mcg by [place] (SYNTHROID) 10:10: mouth of 175 MCG 55 daily. Medicin tablet e oxcarbazepi Yes 300mg Take 300 [facility] ne 9-20 mg by [place] (TRILEPTAL) 10:10: mouth two o f 300 MG 55 times Medicin tablet daily. e Dabigatran Yes Take by [place] [facility] Etexilate 9-20 mouth two Colle ge Mesylate 10:10: times of (PRADAXA) 55 daily. Medicin 150 MG CAPS e Mesalamine Yes Take by [place] [facility] (LIALDA) 9-20 mouth. [place] 1.2 G TBEC 10:10: of 55 Medicin e Cholecalcif Yes 5000mg Take 5,000 [facility] kerline 9-20 mg by [place] (VITAMIN D 10:10: mouth of OR) 55 [...] 175 [facility] ne 9-20 mcg by [place] (SYNTHROID) 10:10: mouth of 175 MCG 55 daily. Medicin tablet e oxcarbazepi Yes 300mg Take 300 [facility] ne 9-20 mg by [place] (TRILEPTAL) 10:10: mouth two o f 300 [...] Medicin daily. e Amantadine Yes TAKE ONE [facility] HCl 100 MG 7-27 TABLET BY [facility] TABS 00:00: MOUTH of 00 TWICE A Medicin DAY e Amantadine Yes TAKE ONE [place] [facility] HCl 100 MG 7-27 TABLET BY [facility] TABS 00:00: MOUTH of 00 TWICE A Medicin DAY e amiodarone Yes 1 tablet [facility] [facility] (PACERONE) 7-09 by mouth Colle ge 200 MG 00:00: twice a of tablet 00 day Medicin e modafinil 2020- No TAKE ONE [place] [facility] (PROVIGIL) 01-18 TABLET BY Col lege 200 MG 00:00: 00:00 MOUTH of tablet 00 :00 TWICE A Medicin DAY e modafinil 2020- No TAKE ONE [place] [facility] (PROVIGIL) 01-18 TABLET BY Col [facility]ge 200 MG 00:00: 00:00 MOUTH of tablet 00 :00 TWICE A Medicin DAY e midodrine Yes 1{tbl} Take 1 [facility] (PROAMATINE 6-07 Tablet by Col lege ) 5 MG 00:00: mouth 3 of tablet 00 times Medicin daily. e Dabigatran Yes Take by [place] [facility] Etexilate 5-24 mouth two Colle ge Mesylate 09:11: times of (PRADAXA) 20 daily. Medicin 150 MG CAPS e Mesalamine Yes Take by [place] [facility] (LIALDA) 5-24 mouth. College 1.2 G TBEC 09:11: of 20 Medicin e Cholecalcif Yes 5000mg Take 5,000 [facility] kerline 5-24 mg by [place] (VITAMIN D 09:11: mouth of OR) 20 [...] 175 [facility] ne 5-24 mcg by [place] (SYNTHROID) 09:11: mouth of 175 MCG 20 daily. Medicin tablet e oxcarbazepi Yes 300mg Take 300 [facility] ne 5-24 mg by [place] (TRILEPTAL) 09:11: mouth two o f 300 MG 20 times Medicin tablet daily. e digoxin Yes 125ug Take 125 [facility] (LANOXIN) 4-13 mcg by [place] 125 MCG 00:00: mouth at of tablet 00 bedtime. Medicin e digoxin Yes 125ug Take 125 [facility] (LANOXIN) 4-13 mcg by [place] 125 MCG 00:00: mouth at of tablet 00 bedtime. Medicin e digoxin Yes 125ug Take 125 [facility] (LANOXIN) 4-13 mcg by [place] 125 MCG 00:00: mouth at of tablet 00 bedtime. Medicin e digoxin Yes 125ug Take 125 [facility] (LANOXIN) 4-13 mcg by [place] 125 MCG 00:00: mouth at of tablet 00 bedtime. Medicin e digoxin Yes 125ug Take 125 [facility] (LANOXIN) 4-13 mcg by [place] 125 MCG 00:00: mouth at of tablet 00 bedtime. Medicin e Dabigatran Yes Take by [place] [facility] Etexilate 3- mouth two Colle ge Mesylate 15:43: times of (PRADAXA) 03 daily. Medicin 150 MG CAPS e Mesalamine Yes Take by [place] [facility] (LIALDA) 3- mouth. [place] 1.2 G TBEC 15:43: of 03 Medicin e Cholecalcif Yes 5000mg Take 5,000 [facility] kerline 3- mg by [place] (VITAMIN D 15:43: mouth of OR) 03 daily. Medicin e Ocrelizumab Yes Inject [facility] (OCREVUS) 3 into the Colleg e 300 MG/10ML 15:43: vein once. of injection Medicin e duloxetine Yes 20mg Take 20 mg [facility] (CYMBALTA) 3-01 by mouth Colle ge 20 MG 15:43: daily. of capsule 03 Medicin e levothyroxi Yes 175ug Take 175 [facility] ne 3-01 mcg by [place] (SYNTHROID) 15:43: mouth of 175 MCG 03 daily. Medicin tablet e oxcarbazepi Yes 300mg Take 300 [facility] ne 3-01 mg by [place] (TRILEPTAL) 15:43: mouth two o f 300 MG 03 times Medicin tablet daily. e Dabigatran Yes Take by [place] [facility] Etexilate 3-01 mouth two Colle ge Mesylate 15:43: times of (PRADAXA) 03 daily. Medicin 150 MG CAPS e Mesalamine 0 Yes Take by [place] [facility] (LIALDA) 3-01 mouth. [place] 1.2 G TBEC 15:43: of 03 Medicin e Cholecalcif 2020-0 Yes 5000mg Take 5,000 [facility] kerline 3-01 mg by [place] (VITAMIN D 15:43: mouth of OR) 03 daily. Medicin e Ocrelizumab Yes Inject [facility] (OCREVUS) 3- into the [facility] 300 MG/10ML 15:43: vein once. of injection 03 Medicin e duloxetine 2020-0 Yes 20mg Take 20 mg [facility] (CYMBALTA) 3-01 by mouth Colle ge 20 MG 15:43: daily. of capsule 03 Medicin e levothyroxi 2020-0 Yes 175ug Take 175 [facility] ne 3-01 mcg by [place] (SYNTHROID) 15:43: mouth of 175 MCG 03 daily. Medicin tablet e oxcarbazepi 0 Yes 300mg Take 300 [facility] ne 3-01 mg by [place] (TRILEPTAL) 15:43: mouth two o f 300 MG 03 times Medicin tablet daily. e Dabigatran Yes Take by [place] [facility] Etexilate 3-01 mouth two Colle ge Mesylate 15:43: times of (PRADAXA) 03 daily. Medicin 150 MG CAPS e Mesalamine 0 Yes Take by [place] [facility] (LIALDA) 3-01 mouth. [place] 1.2 G TBEC 15:43: of 03 Medicin e Cholecalcif 2020-0 Yes 5000mg Take 5,000 [facility] kerline 3-01 mg by [place] (VITAMIN D 15:43: mouth of OR) 03 daily. Medicin e Ocrelizumab 2020-0 Yes Inject [facility] (OCREVUS) 3-01 into the [facility] 300 MG/10ML 15:43: vein once. of injection 03 Medicin e duloxetine 2020-0 Yes 20mg Take 20 mg [facility] (CYMBALTA) 3-01 by mouth Colle ge 20 MG 15:43: daily. of capsule 03 Medicin e levothyroxi 2021-0 Yes 175ug Take 175 [facility] ne 3-01 mcg by [place] (SYNTHROID) 15:43: mouth of 175 MCG 03 daily. Medicin tablet e oxcarbazepi Yes 300mg Take 300 [facility] ne 3-01 mg by [place] (TRILEPTAL) 15:43: mouth two o f 300 MG 03 times Medicin tablet daily. e olmesartan 2020- No 5mg Take 5 mg [facility] (BENICAR) 5 -09-25 by mouth Col lege MG tablet 15:41: 00:00 daily. of 20 :00 Medicin e amlodipine 2020- No 2.5mg Take 2.5 [facility] (NORVASC) 09-25 03- mg by [place] 2.5 MG 15:41: 00:00 mouth of tablet 08 :00 daily. Medicin e rosuvastati Yes 10mg Take 10 mg [facility] (CRESTOR) 2-26 by mouth [facility] 10 MG 00:00: daily. of tablet 00 Medicin e rosuvastati Yes 10mg Take 10 mg [facility] (CRESTOR) 2-26 by mouth [facility] 10 MG 00:00: daily. of tablet 00 Medicin e rosuvastati Yes 10mg Take 10 mg [facility] (CRESTOR) 2-26 by mouth [facility] 10 MG 00:00: daily. of tablet 00 Medicin e rosuvastati Yes 10mg Take 10 mg [facility] (CRESTOR) 2-26 by mouth [facility] 10 MG 00:00: daily. of tablet 00 Medicin e rosuvastati Yes 10mg Take 10 mg [facility] (CRESTOR) 2-26 by mouth [facility] 10 MG 00:00: daily. of tablet 00 Medicin e rosuvastati 0 Yes 10mg Take 10 mg [facility] n (CRESTOR) 2-26 by mouth [facility] 10 MG 00:00: daily. of tablet 00 Medicin e rosuvastati Yes 10mg Take 10 mg [facility] n (CRESTOR) 2-26 by mouth [facility] 10 MG 00:00: daily. of tablet 00 Medicin e Alfuzosin 2021-0 Yes [id number] 10mg Take 10 mg [facility] HCl 10 MG 2-16 9100 by mouth Colleg e TB24 00:00: at of 00 bedtime. Medicin e Alfuzosin 1-0 Yes [id number] 10mg Take 10 mg [facility] HCl 10 MG 2-16 9100 by mouth Colleg e TB24 00:00: at of 00 bedtime. Medicin e Alfuzosin 1-0 Yes [id number] 10mg Take 10 mg [facility] HCl 10 MG 2-16 9100 by mouth Colleg e TB24 00:00: at of 00 bedtime. Medicin e Alfuzosin 1-0 Yes [id number] 10mg Take 10 mg [facility] HCl 10 MG 2-16 9100 by mouth Colleg e TB24 00:00: at of bedtime. Medicin e Alfuzosin 2020-0 Yes [id number] 10mg Take 10 mg [facility] HCl 10 MG 2-16 9100 by mouth Colleg e TB24 00:00: at of bedtime. Medicin e Alfuzosin 2020-0 Yes [id number] 10mg Take 10 mg [facility] HCl 10 MG 2-16 9100 by mouth Colleg e TB24 00:00: at of 00 bedtime. Medicin e latanoprost 2020-0 Yes [facility] (XALATAN) 2-08 [place] 0.005 % 00:00: of ophthalmic 00 Medicin solution e latanoprost 2020-0 Yes [facility] (XALATAN) 2-08 [place] 0.005 % 00:00: of ophthalmic 00 Medicin solution e latanoprost 2020-0 Yes [facility] (XALATAN) 2-08 [place] 0.005 % 00:00: of ophthalmic 00 Medicin solution e latanoprost 2020-0 Yes [facility] (XALATAN) 2-08 [place] 0.005 % 00:00: of ophthalmic 00 Medicin solution e latanoprost 2020-0 Yes [facility] (XALATAN) 2-08 [place] 0.005 % 00:00: of ophthalmic 00 Medicin solution e latanoprost 2020-0 Yes [facility] (XALATAN) 2-08 [place] 0.005 % 00:00: of ophthalmic 00 Medicin [...] THREE Medicin TIMES A e DAY gabapentin 0 Yes TAKE THREE [facility] (NEURONTIN) 2-04 CAPSULES [facility] 300 MG 00:00: BY MOUTH of capsule 00 THREE Medicin TIMES A e DAY gabapentin 0 Yes TAKE THREE [facility] (NEURONTIN) 2-04 CAPSULES [facility] 300 MG 00:00: BY MOUTH of capsule 00 THREE Medicin TIMES A e DAY gabapentin 0 Yes TAKE THREE [facility] (NEURONTIN) 2-04 CAPSULES [facility] 300 MG 00:00: BY MOUTH of capsule 00 THREE Medicin TIMES A e DAY gabapentin 0 Yes TAKE THREE [facility] (NEURONTIN) 2-04 CAPSULES [facility] 300 MG 00:00: BY MOUTH of capsule 00 THREE Medicin TIMES A e DAY lorazepam 0 Yes .5mg Take 1 [facility] (ATIVAN) 2-03 Tablet by Colleg e 0.5 MG 00:00: mouth of tablet 00 every 6 Medicin hours as e needed for Anxiety. lorazepam 0 Yes .5mg Take 1 [facility] (ATIVAN) 2-03 Tablet by Colleg e 0.5 MG 00:00: mouth of tablet 00 every 6 Medicin hours as e needed for Anxiety. lorazepam 2020-0 2021- No .5mg Take 1 [facility] (ATIVAN) 2-03 04-15 Tablet by Colle ge 0.5 MG 00:00: 00:00 mouth of tablet 00 :00 every 6 Medicin hours as e needed for Anxiety. clopidogrel 2019- Yes 75mg Take 75 mg [facility] (PLAVIX) 75 2-18 by mouth [facility] MG Tablet 00:00: daily. of 00 Medicin e clopidogrel 2019- Yes 75mg Take 75 mg [facility] (PLAVIX) 75 2-18 by mouth [facility] MG Tablet 00:00: daily. of 00 Medicin e clopidogrel 2019-07 Yes 75mg Take 75 mg [facility] (PLAVIX) 75 2-18 by mouth [facility] MG Tablet 00:00: daily. of Medicin e clopidogrel 2019-07- No 75mg Take 75 mg [facility] (PLAVIX) 75 2-18 05-24 by mouth Col [...] DAY e Amantadine 2019-07 Yes TAKE ONE [facility] HCl 100 MG 1-27 TABLET BY [facility] TABS 00:00: MOUTH of 00 TWICE A Medicin DAY e Amantadine 2019-07 Yes TAKE ONE [facility] HCl 100 MG 1-27 TABLET BY [facility] TABS 00:00: MOUTH of 00 TWICE A Medicin DAY e Amantadine 2019-07 Yes TAKE ONE [place] [facility] HCl 100 MG 1-27 TABLET BY [facility] TABS 00:00: MOUTH of 00 TWICE A Medicin DAY e Amantadine 2019-07 Yes TAKE ONE [facility] [facility] HCl 100 MG 1-27 TABLET BY [facility] TABS 00:00: MOUTH of 00 TWICE A Medicin DAY e amiodarone Yes [facility] (PACERONE) 8-07 College 200 MG 00:00: of tablet 00 Medicin e amiodarone Yes [facility] (PACERONE) 8-07 [facility] 200 MG 00:00: of tablet 00 Medicin e amiodarone 2020- No [facility] (PACERONE) 8 04-15 College 200 MG 00:00: 00:00 of tablet 00 :00 Medicin e Dabigatran 2020-0 Yes Take by [place] [facility] Etexilate 3-17 mouth two Colle ge Mesylate 16:18: times of (PRADAXA) 48 daily. Medicin 150 MG CAPS e Mesalamine 2020-0 Yes Take by [place] [facility] (LIALDA) 3-17 mouth. [place] 1.2 G TBEC 16:18: of 48 Medicin e Cholecalcif 2020-0 Yes 5000mg Take 5,000 [facility] kerline 3-17 mg by [place] (VITAMIN D 16:18: mouth of OR) 48 [...] 2.5 [facility] (NORVASC) 3-17 mg by [place] 2.5 MG 16:18: mouth of tablet 48 daily. Medicin e levothyroxi 2020-0 Yes 175ug Take 175 [facility] ne 3-17 mcg by [place] (SYNTHROID) 16:18: mouth of 175 MCG 48 daily. Medicin tablet e oxcarbazepi 2020-0 Yes 300mg Take 300 [facility] ne 3-17 mg by [place] (TRILEPTAL) 16:18: mouth two o f 300 MG 48 times Medicin tablet daily. e oxcarbazepi 2020-0 Yes 150mg Take 150 [facility] ne 3-17 mg by [place] (TRILEPTAL) 16:18: mouth two o f 150 MG 48 times Medicin tablet daily. e Tamsulosin 2020-0 Yes [id number] .4mg Take 0.4 [facility] HCl 0.4 MG 3-17 9100 mg by [place] CAPS 00:00: mouth at of 00 bedtime. Medicin e ciprofloxac 2020-0 Yes [id number] 500mg Take 1 Tab [facility] in (CIPRO) 3-17 by mouth Colle ge 500 MG 00:00: two times of tablet 00 daily. Medicin e Amantadine 2020-0 Yes TAKE ONE [facility] [facility] HCl 100 MG 3-16 TABLET BY [facility] TABS 00:00: MOUTH of 00 TWICE A Medicin DAY e Dabigatran 2020-0 Yes Take by [place] [facility] Etexilate 2-25 mouth two Colle ge Mesylate 19:48: times of (PRADAXA) 18 daily. Medicin 150 MG CAPS e Mesalamine 2020-0 Yes Take by [place] [facility] (LIALDA) 2-25 mouth. College 1.2 G TBEC 19:48: of 18 Medicin e Cholecalcif 2020-0 Yes 5000mg Take 5,000 [facility] kerline 2-25 mg by [place] (VITAMIN D 19:48: mouth of OR) 18 [...] 175 [facility] ne 2-25 mcg by [place] (SYNTHROID) 19:48: mouth of 175 MCG 18 daily. Medicin tablet e oxcarbazepi 2020-0 Yes 300mg Take 300 [facility] ne 2-25 mg by [place] (TRILEPTAL) 19:48: mouth two o f 300 MG 18 times Medicin tablet daily. e oxcarbazepi 2020-0 Yes 150mg Take 150 [facility] ne 2-25 mg by [place] (TRILEPTAL) 19:48: mouth two o f 150 MG 18 times Medicin tablet daily. e furosemide 2020-0 2020- No 40mg Take 40 mg [facility] (LASIX) 40 2- 02-25 by mouth [facility] MG tablet 19:48: 00:00 daily. of 18 :00 Medicin e levothyroxi 2020-0 2020- No 150ug Take 150 [facility] ne 2-25 02-25 mcg by [place] (SYNTHROID) 19:48: 00:00 mouth of 150 MCG 18 :00 daily. Medicin tablet e LATANOPROST 2019-0 2020- No Apply to [facility] OP 2-21 09-25 eye. College 19:48: 00:00 of 18 :00 Medicin e potassium 2020-0 2020- No 10meq Take 10 [facility] [facility] chloride 2-25 -25 mEq by [place] (KDUR) 10 19:48: 00:00 mouth of MEQ [...] e Cholecalcif 2020-0 Yes 5000mg Take 5,000 [facility] kerline 1-27 mg by [place] (VITAMIN D 18:14: mouth of OR) 28 daily. Medicin e amiodarone 2020-0 Yes Inject [facility] (CORDARONE) 1-27 into the [facility] 50 mg/mL 18:14: vein. of injection 28 Medicin e Ocrelizumab 2020-0 Yes Inject [facility] (OCREVUS) 1-27 into the [facility] e 300 MG/10ML 18:14: vein once. of injection 28 Medicin e furosemide 2020-0 Yes 40mg Take 40 mg [facility] (LASIX) 40 1-27 by mouth Colle ge MG tablet 18:14: daily. of Medicin e levothyroxi 2019-0 Yes 150ug Take 150 [facility] ne 1-27 mcg by [place] (SYNTHROID) 18:14: mouth of 150 MCG 28 daily. Medicin tablet e Dabigatran Yes Take by [place] [facility] Etexilate 08-23 mouth two [facility] Mesylate 18:14: times of (PRADAXA) 28 daily. Medicin 150 MG CAPS e LATANOPROST Yes Apply to [facility] OP 08-23 eye. College 18:14: of Medicin e potassium Yes 10meq Take 10 [facility] chloride 08-23 mEq by [place] (KDUR) 10 18:14: mouth of MEQ tablet 28 daily. Medicin e Mesalamine Yes Take by [facility] [facility] (LIALDA) 08-23 mouth. [place] 1.2 G TBEC 18:14: Medicin e methylPREDN 2018-07 Yes Take by [place] [facility] ISolone 1- mouth as [place] (MEDROL 00:00: directed. of [employer]) 4 00 Medicin MG tablet e methylPREDN 2018-07 2020- No Take by [facility] ISolone 1-15 - mouth as College (MEDROL 00:00: 00:00 directed. of [employer]) 4 00 :00 Medicin MG tablet e modafinil 2018-07 Yes TAKE ONE [facility] (PROVIGIL) 1-08 TABLET BY [facility] 200 MG 00:00: MOUTH of tablet 00 TWICE A Medicin DAY e modafinil 2018-07 2020- No TAKE ONE [facility] (PROVIGIL) 1-08 09-21 TABLET BY Col [facility]ge 200 MG 00:00: 00:00 MOUTH of tablet 00 :00 TWICE A Medicin DAY e gabapentin 2018- Yes TAKE THREE [facility] (NEURONTIN) 6-17 CAPSULES [facility] 300 MG 00:00: BY MOUTH of capsule 00 THREE Medicin TIMES A e DAY gabapentin 2019- Yes TAKE THREE [facility] (NEURONTIN) 6-17 CAPSULES [facility] 300 MG 00:00: BY MOUTH of capsule 00 THREE Medicin TIMES A e DAY gabapentin 2019- Yes TAKE THREE [facility] (NEURONTIN) 6-17 CAPSULES [facility] 300 MG 00:00: BY MOUTH of capsule 00 THREE Medicin TIMES A e DAY gabapentin 2019- Yes TAKE THREE [facility] (NEURONTIN) 6-17 CAPSULES [facility] 300 MG 00:00: BY MOUTH of capsule 00 THREE Medicin TIMES A e DAY modafinil Yes TAKE ONE [facility] (PROVIGIL) 3-27 TABLET BY [facility] 200 MG 00:00: MOUTH of tablet 00 TWICE A Medicin DAY e Amantadine Yes TAKE ONE [facility] HCl 100 MG 3-25 TABLET BY [facility] TABS 00:00: MOUTH of 00 TWICE A Medicin DAY e Amantadine Yes TAKE ONE [facility] HCl 100 MG 3-25 TABLET BY [facility] TABS 00:00: MOUTH of 00 TWICE A Medicin DAY e Amantadine Yes TAKE ONE [facility] HCl 100 MG 3-25 TABLET BY [facility] TABS 00:00: MOUTH of 00 TWICE A Medicin DAY e furosemide Yes 40mg Take 40 mg [facility] (LASIX) 40 1-14 by mouth Colle ge MG tablet 20:27: daily. of 10 Medicin e levothyroxi Yes 150ug Take 150 [facility] ne 1-14 mcg by [place] (SYNTHROID) 20:27: mouth of 150 MCG 10 daily. Medicin tablet e Dabigatran Yes Take by [place] [facility] Etexilate 1-14 mouth two [facility] Mesylate 20:27: times of (PRADAXA) 10 daily. Medicin 150 MG CAPS e LATANOPROST Yes Apply to [facility] OP 1-14 eye. College 20:27: of 10 Medicin e potassium Yes 10meq Take 10 [facility] chloride 1-14 mEq by [place] (KDUR) 10 20:27: mouth of MEQ tablet 10 daily. Medicin e Mesalamine Yes Take by [facility] [facility] (LIALDA) 1-14 mouth. College 1.2 G TBEC 20:27: of 10 Medicin e Cholecalcif Yes 5000mg Take 5,000 [facility] kerline 1-14 mg by [place] (VITAMIN D 20:27: mouth of OR) 10 daily. Medicin e amiodarone Yes Inject [facility] (CORDARONE) 1-14 into the [facility] 50 mg/mL 20:27: vein. of injection 10 Medicin e Ocrelizumab 2018-0 Yes Inject [facility] (OCREVUS) 1-14 into the [facility] 300 MG/10ML 20:27: vein once. of injection 10 Medicin e oxcarbazepi 2015-0 Yes [facility] ne 04-02 College (TRILEPTAL) 00:00: of 600 MG 00 Medicin tablet e oxcarbazepi 2015-0 Yes [facility] ne 04-02 College (TRILEPTAL) 00:00: of 600 MG 00 Medicin tablet e oxcarbazepi 2015-0 2020- No [facility] ne 04-02 College (TRILEPTAL) 00:00: 00:00 of 600 MG 00 :00 Medicin tablet e esomeprazol 2015-0 Yes [facility] e (NEXIUM) 8-17 College 40 MG 00:00: of capsule 00 Medicin e esomeprazol 2015-0 Yes [facility] e (NEXIUM) 8-17 College 40 MG 00:00: of capsule 00 Medicin e esomeprazol 2015-0 Yes [employer] [facility] (NEXIUM) 8-17 [employer] 40 MG 00:00: of capsule 00 Medicin e esomeprazol 2015-0 Yes [facility] e (NEXIUM) 8-17 College 40 MG 00:00: of capsule 00 Medicin e esomeprazol 2015-0 Yes [facility] e (NEXIUM) 8-17 College 40 MG 00:00: of capsule 00 Medicin e esomeprazol 2015-0 Yes [facility] e (NEXIUM) 8-17 College 40 MG 00:00: of capsule 00 Medicin e esomeprazol 2016-0 Yes [facility] e (NEXIUM) 8-17 College 40 MG 00:00: of capsule 00 Medicin e esomeprazol 2016-0 Yes [employer] (NEXIUM) 8-17 [employer] 40 MG 00:00: of capsule 00 Medicin e esomeprazol 2016-0 Yes [employer] (NEXIUM) 8-17 [employer] 40 MG 00:00: of capsule 00 Medicin e esomeprazol 2015-0 Yes [employer] (NEXIUM) 8-17 [employer] 40 MG 00:00: of capsule 00 Medicin e esomeprazol 2015-0 Yes [facility] e (NEXIUM) 8-17 College 40 MG 00:00: of capsule 00 Medicin e Vital Signs Vital Name Observation Time Observation Value Comments Source HEIGHT 2020-12-20 06:00:00 193 cm WEIGHT 2020-12-20 06:00:00 75.7 kg HEIGHT 2020-12-19 13:14:00 193 cm WEIGHT 2020-12-19 13:14:00 74.844 kg Systolic blood 2021-10-15 14:49:00 128 mm[Hg] [facility] Medicine Diastolic blood 2021-10-15 14:49:00 76 mm[Hg] [facility] Medicine Heart rate 2021-10-15 14:49:00 65 /min [facility] ollege of [facility] Respiratory rate 2021-10-15 14:49:00 16 /min [facility] Body height 2021-10-15 14:49:[address] [facility] ollege of [facility] Body weight 2021-10-15 14:49:[facility] BMI 2021-10-15 14:49:00 19.45 kg/m2 [facility] ollege of Medicine Systolic blood 2021-04-16 15:06:00 96 mm[Hg] [facility] Medicine Diastolic blood 2021-04-16 15:06:00 63 mm[Hg] [facility] Medicine Heart rate 2021-04-16 15:06:00 69 /min [facility] ollege of Medicine Body height 2021-04-16 15:06:[address] [facility] of [facility] Body weight 2021-04-16 15:06:[address] [facility] BMI 2021-04-16 15:06:00 19.96 kg/m2 [facility] ollege of Medicine Systolic blood 2020-12-18 14:09:00 169 mm[Hg] [facility] Medicine Diastolic blood 2020-12-18 14:09:00 108 mm[Hg] [facility] Medicine Heart rate 2020-12-18 14:09:00 67 /min [facility] ollege of Medicine Body temperature 2020-12-18 14:09:00 36.28 Vaishnavi [facility] Respiratory rate 2020-12-18 14:09:00 16 /min [facility] Body height 2020-12-18 14:09:[address] [facility] ol[facility] Body weight 2020-12-18 14:09:[address] [facility] ollege of Medicine BMI 2020-12-18 14:09:00 20.35 kg/m2 [facility] Oxygen saturation in 2020-12-18 14:09:00 100 /min [facility] Arterial blood by [facility] Pulse oximetry Systolic blood 2020-11-09 15:14:00 99 mm[Hg] [facility] pressure Medicine Diastolic blood 2020-11-09 15:14:00 71 mm[Hg] [facility] pressure Medicine Heart rate 2020-11-09 15:14:00 128 /min [facility] ollege of Medicine Body height 2020-11-09 15:14:[address] [facility] Body weight 2020-11-09 15:14:[address] [facility] ollege of Medicine BMI 2020-11-09 15:14:00 20.45 kg/m2 [facility] ollege of Medicine Systolic blood 2020-09-27 16:10:00 121 mm[Hg] [facility] pressure Medicine Diastolic blood 2020-09-27 16:10:00 80 mm[Hg] [facility] of pressure Medicine Heart rate 2020-09-27 16:10:00 70 /min [facility] ollege of Medicine Body height 2020-09-27 16:10:[address] [facility] ol[facility] of [facility] Body weight 2020-09-27 16:10:[address] [facility] ollege of Medicine BMI 2020-09-27 16:10:00 22.52 kg/m2 [facility] ollege of Medicine Systolic blood 2020-09-25 15:40:00 121 mm[Hg] [facility] of pressure Medicine Diastolic blood 2020-09-25 15:40:00 85 mm[Hg] [facility] pressure Medicine Heart rate 2020-09-25 15:40:00 64 /min [facility] ollege of Medicine Body temperature 2020-09-25 15:40:00 36.22 Vaishnavi [facility] Respiratory rate 2020-09-25 15:40:00 16 /min [facility] Body height 2020-09-25 15:40:00 193 cm [facility] ollege of Medicine Body weight 2020-09-25 15:40:[address] [facility] ollege of Medicine BMI 2020-09-25 15:40:00 22.28 kg/m2 [facility] ol[facility] of [facility] Oxygen saturation in 2020-09-25 15:40:00 100 /min [facility] blood by [facility] Pulse oximetry HEIGHT 2020-09-08 10:50:00 193 cm WEIGHT 2020-09-08 10:50:00 83.144 kg HEIGHT 2020-09-08 10:50:00 193 cm WEIGHT 2020-09-08 10:50:00 83.144 kg Systolic blood 2019-10-12 16:12:00 177 mm[Hg] [facility] pressure Medicine Diastolic blood 2019-10-12 16:12:00 107 mm[Hg] [facility] of pressure Medicine Heart rate 2019-10-12 16:12:00 58 /min [facility] ollege of Medicine Body height 2019-10-12 16:12:[address] [facility] ollege of Medicine Body weight 2019-10-12 16:12:[address] [facility] ollege of Medicine BMI 2019-10-12 16:12:00 22.52 kg/m2 [facility] ollege of Medicine Systolic blood 2019-09-21 19:28:00 139 mm[Hg] [facility] of pressure Medicine Diastolic blood 2019-09-21 19:28:00 97 mm[Hg] [facility] of pressure Medicine Heart rate 2019-09-21 19:28:00 56 /min [facility] ollege of Medicine Body height 2019-09-21 19:28:[address] [facility] ollege of Medicine Body weight 2019-09-21 19:28:00 82.555 kg [facility] ollege of Medicine BMI 2019-09-21 19:28:00 22.15 kg/m2 [facility] ollege of Medicine Systolic blood 2019-08-23 18:15:00 125 mm[Hg] [facility] of pressure Medicine Diastolic blood 2019-08-23 18:15:00 86 mm[Hg] [facility] pressure Medicine Heart rate 2019-08-23 18:15:00 65 /min [facility] ollege [facility] Body temperature 2019-08-23 18:15:00 36.5 Vaishnavi [facility] Respiratory rate 2019-08-23 18:15:00 14 /min [facility] Body height 2019-08-23 18:15:[address] [facility] 2019-08-23 18:15:[address] [facility] BMI 2019-08-23 18:15:00 22.52 kg/m2 [facility] Oxygen saturation in 2019-08-23 18:15:00 99 /min [facility] Arterial blood by [facility] Pulse oximetry Systolic blood 2019-03-04 18:59:00 155 mm[Hg] [facility] pressure Medicine Diastolic blood 2019-03-04 18:59:00 96 mm[Hg] [facility] Medicine Heart rate 2019-03-04 18:59:00 63 /min [facility] height 2019-03-04 18:59:[address] [facility] Body weight 2019-03-04 18:59:[address] [facility] BMI 2019-03-04 18:59:00 23.61 kg/m2 [facility] Procedures This patient has no known procedures. Plan of Care Planned Activity Planned Date Details Comments Source Future Scheduled 2021-10-16 TETANUS SHOT (ADULT) [facility] Test 07:31:08 [code = TETANUS SHOT of Medi cine (ADULT)] Future Scheduled 2021-10-16 Hepatitis C screening [facility] Test 07:31:08 (procedure) [code = of Medic ine 321365195] Future Scheduled 2021-10-16 ZOSTER VACCINE (1 of [facility] Test 07:31:08 2) [code = ZOSTER of Medicin e VACCINE (1 of 2)] Future Scheduled 2021-10-16 Abdominal aortic [facility] Test 07:31:08 aneurysm screening of Medici ne (procedure) [code = 382888640] Future Scheduled 2021-10-16 Pneumococcal 65+ (1 [employer] Test 07:31:08 of 1 - PPSV23) [code of Medi cine = Pneumococcal 65+ (1 of 1 - PPSV23)] Future Scheduled 2021-10-16 Screening for [facility] Test 07:31:08 malignant neoplasm of of Med icine colon (procedure) [code = 874636310] Future Scheduled 2021-10-16 MEDICARE AWV [facility] [employer] Test 07:31:08 (Initial) [code = of Medicin e MEDICARE AWV (Initial)] Future Scheduled 2021-10-16 MEDICARE IPPE [facility] Test 07:31:08 (WELCOME TO MEDICARE) of Med icine [code = MEDICARE IPPE (WELCOME TO MEDICARE)] Future Scheduled 2021-10-16 COVID-19 Vaccine (3 - [employer] Test 07:31:08 Booster for Pfizer of Medici ne series) [code = COVID-19 Vaccine (3 - Booster for Pfizer series)] Future Scheduled 2021-10-16 FLU VACCINE > 6 [facility] Test 07:31:08 MONTHS [code = FLU of Medici ne VACCINE > 6 MONTHS] Future Scheduled 2021-10-16 FALL SCREEN [code = [employer] Test 07:31:08 FALL SCREEN] of Medicine Future Scheduled 2021-04-16 TETANUS SHOT (ADULT) [employer] Test 10:09:56 [code = TETANUS SHOT of Medi cine (ADULT)] Future Scheduled 2021-04-16 Hepatitis C screening [employer] Test 10:09:56 (procedure) [code = of Medic ine 052238901] Future Scheduled 2021-04-16 ZOSTER VACCINE (1 of [employer] Test 10:09:56 2) [code = ZOSTER of Medicin e VACCINE (1 of 2)] Future Scheduled 2021-04-16 Abdominal aortic [facility] [employer] Test 10:09:56 aneurysm screening of Medici ne (procedure) [code = 112817086] Future Scheduled 2021-04-16 PNEUMOVAX >=65 [facility] Test 10:09:56 (PPSV23) [code = of Medicine PNEUMOVAX >=65 (PPSV23)] Future Scheduled 2021-04-16 Screening for [facility] Test 10:09:56 malignant neoplasm of of Med icine colon (procedure) [code = 546713846] Future Scheduled 2021-04-16 FLU VACCINE > 6 [facility] Test 10:09:56 MONTHS [code = FLU of Medici ne VACCINE > 6 MONTHS] Future Scheduled 2021-04-16 FALL SCREEN [code = [employer] Test 10:09:56 FALL SCREEN] of Medicine Future Scheduled 2021-04-16 TETANUS SHOT (ADULT) [employer] Test 10:09:56 [code = TETANUS SHOT of Medi cine (ADULT)] Future Scheduled 2021-04-16 Hepatitis C screening [employer] Test 10:09:56 (procedure) [code = of Medic ine 600801666] Future Scheduled 2021-04-16 ZOSTER VACCINE (1 of [employer] Test 10:09:56 2) [code = ZOSTER of Medicin e VACCINE (1 of 2)] Future Scheduled 2021-04-16 Abdominal aortic [facility] [employer] Test 10:09:56 aneurysm screening of Medici ne (procedure) [code = 277707103] Future Scheduled 2021-04-16 PNEUMOVAX >=65 [facility] Test 10:09:56 (PPSV23) [code = of Medicine PNEUMOVAX >=65 (PPSV23)] Future Scheduled 2021-04-16 Screening for [facility] Test 10:09:56 malignant neoplasm of of Med icine colon (procedure) [code = 120921740] Future Scheduled 2021-04-16 FLU VACCINE > 6 [facility] C [facility] Test 10:09:56 MONTHS [code = FLU of Medici ne VACCINE > 6 MONTHS] Future Scheduled 2021-04-16 FALL SCREEN [code = [employer] Test 10:09:56 FALL SCREEN] of Medicine Future Scheduled 2020-12-21 TETANUS SHOT (ADULT) [employer] Test 13:03:52 [code = TETANUS SHOT of Medi cine (ADULT)] Future Scheduled 2020-12-21 Hepatitis C screening [employer] Test 13:03:52 (procedure) [code = of Medic ine 379424921] Future Scheduled 2020-12-21 ZOSTER VACCINE (1 of [employer] Test 13:03:52 2) [code = ZOSTER of Medicin e VACCINE (1 of 2)] Future Scheduled 2020-12-21 Abdominal aortic [facility] [employer] Test 13:03:52 aneurysm screening of Medici ne (procedure) [code = 969363967] Future Scheduled 2020-12-21 PNEUMOVAX >=65 [facility] Test 13:03:52 (PPSV23) [code = of Medicine PNEUMOVAX >=65 (PPSV23)] Future Scheduled 2020-12-21 Screening for [facility] Test 13:03:52 malignant neoplasm of of Med icine colon (procedure) [code = 055658387] Future Scheduled 2020-12-21 FLU VACCINE > 6 [employer] [facility] [employer] Test 13:03:52 MONTHS [code = FLU of Medici ne VACCINE > 6 MONTHS] Future Scheduled 2020-12-21 FALL SCREEN [code = [employer] Test 13:03:52 FALL SCREEN] of Medicine Future Scheduled TETANUS SHOT (ADULT) [employer] Test [code = TETANUS SHOT of Medi cine (ADULT)] Future Scheduled HEPATITIS C SCREENING [employer] Test [code = HEPATITIS C of Medic ine SCREENING] Future Scheduled MEDICARE AWV [facility] [employer] (Initial) [code = of Medicin e MEDICARE AWV (Initial)] Future Scheduled AAA Screen [code = [employer] Test AAA Screen] of Medicine Future Scheduled FALL SCREEN [code = [employer] Test FALL SCREEN] of Medicine Future Scheduled PNEUMOVAX >=65 [facility] Test (PPSV23) [code = of Medicine PNEUMOVAX >=65 (PPSV23)] Future Scheduled PREVNAR >= 65 (PCV13) [employer] Test [code = PREVNAR >= 65 of Med icine (PCV13)] Future Scheduled COLON CANCER [facility] [employer] SCREENING: of Medicine COLONOSCOPY [code = COLON CANCER SCREENING: COLONOSCOPY] Future Scheduled FLU VACCINE > 6 [facility] Test MONTHS [code = FLU of Medici ne VACCINE > 6 MONTHS] Future Scheduled ABSOLUTE LYMPHOCYTE Ordered: [employer] Test COUNT [code = NOCPT] 09/21/2019 of Medi cine Future Scheduled COMPREHENSIVE Ordered: [facility] Test METABOLIC PANEL [code 09/21/2019 of Med icine = 48668-2] Future Scheduled IMMUNOGLOBULIN [facility] Test PROFILE [code = of Medicine 99704-5] Future Scheduled TETANUS SHOT (ADULT) [employer] Test [code = TETANUS SHOT [...] Med icine (PCV13)] Future Scheduled COLON CANCER [facility] [employer] Test SCREENING: of Medicine COLONOSCOPY [code = COLON CANCER SCREENING: COLONOSCOPY] Future Scheduled FLU VACCINE > 6 [facility] C [facility] Test MONTHS [code = FLU of Medici ne VACCINE > 6 MONTHS] Future Scheduled URINALYSIS AUTO Ordered: [facility] C [facility] Test W/SCOPE [code = 10/12/2019 of [facility] 44997-4] Future Scheduled TETANUS SHOT (ADULT) [employer] Test [code = TETANUS SHOT of Medi cine (ADULT)] Future Scheduled HEPATITIS C SCREENING [employer] Test [code = HEPATITIS C of Medic ine SCREENING] Future Scheduled MEDICARE AWV [employer] [facility] (Initial) [code = of Medicin e MEDICARE AWV (Initial)] Future Scheduled AAA Screen [code = [employer] Test AAA Screen] of Medicine Future Scheduled FALL SCREEN [code = [employer] Test FALL SCREEN] of Medicine Future Scheduled PNEUMOVAX >=65 [facility] Test (PPSV23) [code = of Medicine PNEUMOVAX >=65 (PPSV23)] Future Scheduled PREVNAR >= 65 (PCV13) [employer] Test [code = PREVNAR >= 65 of Med icine (PCV13)] Future Scheduled COLON CANCER [facility] [employer] Test SCREENING: of Medicine COLONOSCOPY [code = COLON CANCER SCREENING: COLONOSCOPY] Future Scheduled FLU VACCINE > 6 [employer] [facility] Test MONTHS [code = FLU of Medici ne VACCINE > 6 MONTHS] Future Scheduled TETANUS SHOT (ADULT) [employer] Test [code = TETANUS SHOT of Medi cine (ADULT)] Future Scheduled HEPATITIS C SCREENING [employer] Test [code = HEPATITIS C of Medic ine SCREENING] Future Scheduled ZOSTER VACCINE (1 of [employer] Test 2) [code = ZOSTER of Medicin e VACCINE (1 of 2)] Future Scheduled AAA Screen [code = [employer] Test AAA Screen] of Medicine Future Scheduled PNEUMOVAX >=65 [facility] Test (PPSV23) [code = of Medicine PNEUMOVAX >=65 (PPSV23)] Future Scheduled COLON CANCER [facility] [employer] Test SCREENING: of Medicine COLONOSCOPY [code = COLON CANCER SCREENING: COLONOSCOPY] Future Scheduled MEDICARE AWV [facility] [employer] Test (Initial) [code = of Medicin e MEDICARE AWV (Initial)] Future Scheduled FLU VACCINE > 6 [employer] [facility] [employer] Test MONTHS [code = FLU of Medici ne VACCINE > 6 MONTHS] Future Scheduled FALL SCREEN [code = [employer] Test FALL SCREEN] of Medicine Future Scheduled ABSOLUTE LYMPHOCYTE Ordered: [employer] Test COUNT [code = NOCPT] 09/27/2020 of Medi cine Future Scheduled COMPREHENSIVE Ordered: [facility] Test METABOLIC PANEL [code 09/27/2020 of Med icine = 43483-4] Future Scheduled IMMUNOGLOBULIN Ordered: [facility] l[facility] Test PROFILE [code = 09/27/2020 of Medicine 86465-3] Future Scheduled TETANUS SHOT (ADULT) [employer] Test [code = TETANUS SHOT of Medi cine (ADULT)] Future Scheduled HEPATITIS C SCREENING [facility] Test [code = HEPATITIS C of Medic ine SCREENING] Future Scheduled ZOSTER VACCINE (1 of [employer] Test 2) [code = ZOSTER of Medicin e VACCINE (1 of 2)] Future Scheduled AAA Screen [code = [employer] Test AAA Screen] of Medicine Future Scheduled PNEUMOVAX >=65 [facility] Test (PPSV23) [code = of Medicine PNEUMOVAX >=65 (PPSV23)] Future Scheduled COLON CANCER [facility] [employer] Test SCREENING: of Medicine COLONOSCOPY [code = COLON CANCER SCREENING: COLONOSCOPY] Future Scheduled MEDICARE AWV [facility] [employer] Test (Initial) [code = of Medicin e MEDICARE AWV (Initial)] Future Scheduled FLU VACCINE > 6 [facility] C [facility] Test MONTHS [code = FLU of Medici ne VACCINE > 6 MONTHS] Future Scheduled FALL SCREEN [code = [employer] Test FALL SCREEN] of Medicine Future Scheduled TETANUS SHOT (ADULT) [employer] Test [code = TETANUS SHOT of Medi cine (ADULT)] Future Scheduled Hepatitis C screening [employer] Test (procedure) [code = of Medic ine 409047351] Future Scheduled ZOSTER VACCINE (1 of [employer] Test 2) [code = ZOSTER of Medicin e VACCINE (1 of 2)] Future Scheduled Abdominal aortic [facility] [employer] Test aneurysm screening of Medici ne (procedure) [code = 585947090] Future Scheduled PNEUMOVAX >=65 [facility] Test (PPSV23) [code = of Medicine PNEUMOVAX >=65 (PPSV23)] Future Scheduled Screening for [facility] [employer] [facility] Test malignant neoplasm of of Med icine colon (procedure) [code = 798560328] Future Scheduled FLU VACCINE > 6 [facility] C [facility] Test MONTHS [code = FLU of Medici ne VACCINE > 6 MONTHS] Future Scheduled FALL SCREEN [code = [employer] Test FALL SCREEN] of Medicine Future Scheduled IMMUNOGLOBULIN Ordered: [facility] llege Test PROFILE [code = 03/04/2019 of Medicine 00392-0] Future Scheduled MEDICARE AWV [code = [employer] Test MEDICARE AWV] of Medicine Future Scheduled TETANUS SHOT (ADULT) [employer] Test [code = TETANUS SHOT of Medi cine (ADULT)] Future Scheduled HEPATITIS C SCREENING [employer] Test [code = HEPATITIS C of Medic ine SCREENING] Future Scheduled AAA Screen [code = [facility] Test AAA Screen] of Medicine Future Scheduled PNEUMOVAX >=65 [facility] Test (PPSV23) [code = of Medicine PNEUMOVAX >=65 (PPSV23)] Future Scheduled PREVNAR >= 65 (PCV13) [employer] Test [code = PREVNAR >= 65 of Med icine (PCV13)] Future Scheduled COLON CANCER [facility] [employer] Test SCREENING: of Medicine COLONOSCOPY [code = COLON CANCER SCREENING: COLONOSCOPY] Future Scheduled FLU VACCINE > 6 [facility] C [facility] Test MONTHS [code = FLU of Medici ne VACCINE > 6 MONTHS] Future Scheduled FALL SCREEN [code = [employer] Test FALL SCREEN] of Medicine Future Scheduled CULTURE, 2 Occurrences [facility] Test URINE/SENSITIVITY ON starting of Medi cine ALL [code = 58799-5] 10/12/2019 until 10/11/2020 Future Scheduled US RENAL BILATERAL 1 Occurrences [employer] Test [code = 42455] starting of Medicine 10/12/2019 until 10/11/2020 Future Scheduled VIDEO URODYNAMICS 1 Occurrences [facility] Test [code = 01030] starting of Medicine 10/12/2019 until 10/11/2020 Encounters Start End Encounter Admission Attending Care Care Encounter Source Date/Time Date/Time Type Type Clinicians Facility Department ID [facility]10[facility] 2021-08-22 [facility] 2021-05-05 [facility] [id number] [facility] 19:55:29 , [facility] 2021-05-05 [facility] [id number] [facility] 03:19:02 , [facility] 2021-10-25 2021-10-25 Outpatient [facility] [id number] [facility] 07:29:15 23:59:00 Jo [place] of Medicin e 2021-10-15 2021-10-15 Office PHONG Lim [id number] [facility] 10:30:00 11:30:50 Visit Polina Baptiste AMBULATOR [id number] College Y [id number] of [id number] Medi geno 830 e 2021-10-04 2021-10-04 Outpatient FLACORadhaOSCARAN [facility] 021 [id number] [place] 00:00:00 00:00:[address] 2021-10-03 2021-10-03 Outpatient CHANDRAKANT BROOKS [facility] [id number] [place] 00:00:00 00:00:[address] 2021-09-21 2021-09-21 Outpatient CHANDRAKANT BROOKS [facility] [id number] [place] 00:00:00 00:00:[address] 2021-09-18 2021-09-18 Outpatient BHARGAVI [facility] [id number] [place] 00:00:00 00:00:00 JASON [address] 2021-07-03 2021-07-03 Outpatient VIEJAS, [facility] [id number] [place] 00:00:00 00:00:00 SP 800 [facility] i 2021-04-26 2021-04-26 Outpatient [facility] [id number] [facility] 07:28:23 23:59:00 Poojain e 2021-04-16 2021-04-16 Office PHONG Lim [id number] [facility] 09:55:21 10:48:40 Visit [facility] AMBULATOR [id number] [place] [id number] of [id number] Medi geno 830 e 2021-04-04 2021-04-04 Outpatient VIEJAS, [facility] [id number] [place] 00:00:00 00:00:00 SP 780 [facility] i 2021-03-08 2021-03-08 Outpatient VIEJAS, [facility] [id number] [place] 00:00:00 00:00:00 PS 152 Method i 2021-02-22 2021-02-22 Outpatient [facility] [id number] [facility] 00:00:00 00:00:00 2021-02-06 2021-02-06 Outpatient BURK, [facility] [id number] [place] 00:00:00 00:00:00 JASON 037 Method i 2021-02-06 2021-02-06 Outpatient VIEJAS, [facility] [id number] [place] 00:00:00 00:00:00 SP 270 Method i 2021-01-31 2021-01-31 Outpatient VIEJAS, [facility] 799 [id number] [address] [place] 00:00:00 00:00:00 SP 544 Method i 2021-01-31 2021-01-31 Outpatient VIEJAS, [facility] [id number] [address] [place] 00:00:00 00:00:00 SP 001 Method i 2021-01-18 2021-01-18 Outpatient VIEJAS, [facility] [id number] [address] [place] 00:00:00 00:00:00 SP 899 Method i 2021-01-10 2021-01-10 Outpatient VIEJAS, [facility] 196 [id number] [address] [place] 00:00:00 00:00:00 SP 692 Method i 2020-12-28 2020-12-28 Outpatient CHANDRAKANT BROOKS [facility] [id number] [place] 00:00:00 00:00:00 004 Method i 2020-12-28 2020-12-28 Outpatient EDD [facility] [id number] [address] [place] 00:00:00 00:00:00 SP 011 Method i 2020-12-19 2020-12-19 Outpatient STEPHENIE SLE [facility] [id number] SLE 00:00:00 00:00:00 2020-12-18 2020-12-18 Office Renee [facility] 1.2.840.114 [id number] [facility] 08:49:46 14:46:06 Visit Lee AMBULATOR 350.1.13.21 College Y 0.2.7.2.686 of [id number] [facility] geno 300 e 2020-12-18 2020-12-18 Outpatient EDD [facility] [id number] [address] [place] 00:00:00 00:00:00 SP 763 Method i 2020-12-15 2020-12-15 Outpatient STEPHENIE [facility] [id number] SLE 00:00:00 00:00:00 2020-12-15 2020-12-15 Outpatient STEPHENIE [facility] [id number] [facility] 00:00:00 00:00:00 2020-11-13 2020-11-13 Outpatient CARINA [facility] [id number] [facility] 00:00:00 00:00:00 [place] 2020-11-13 2020-11-13 Outpatient EL CARINA [facility] [id number] [facility] 00:00:00 00:00:00 [place] 2020-11-09 2020-11-09 Office [place], [facility] 1.2.840.[id number] [place] [address] 10:07:36 16:15:46 Visit Polina Oliva AMBULATOR 350.1.13.21 College Y 0.2.7.2.686 of [id number] [facility] geno 830 e 2020-10-31 2020-11-03 Inpatient BRET [facility] 064 [id number] [place] 00:00:00 00:00:00 WARREN 654 Method i 2020-10-18 2020-10-18 Outpatient BHARGAVI, [facility] 540 [id number] [place] 00:00:00 00:00:00 JASON 806 Method i 2020-10-13 2020-10-13 Outpatient BHARGAVI, [facility] [id number] [place] 00:00:00 00:00:00 JASON 333 Method i 2020-10-13 2020-10-13 Outpatient BHARGAVI, [facility] [id number] [address] [place] 00:00:00 00:00:00 JASON 716 Method i 2020-10-06 2020-10-06 Laboratory Lab, [facility] 1.2.840.114 [id number] 14:30:14 14:50:14 Only Fam Pob I Health 350.1.13.10 [place] 4.2.7.2.686 Professio [id number] [address] 2020-10-06 2020-10-06 Laboratory Lab, [facility] Fam Pob I [facility] 1.2. [address]40[id number] [facility] 14:30:14 14:50:14 Only Laith, [facility] 350.1.13.10 ity of [place] 4.2.7.2.686 Lino as Professio [phone] Ia dical [address] Office [facility] 2020-10-06 2020-10-06 Outpatient R LAITH, [facility] [id number] [facility] 14:40:00 14:40:00 LISA ity of [facility] 2020-10-06 2020-10-06 Letter Doctor DORON 1.2.840.[id number] [facility] 00:00:00 00:00:00 (Out) Unassigned, NISHANT 350.1.13.10 ity of [place] [facility] 4.2.7.2.686 Lino as [phone] [address] 2020-10-06 2020-10-06 Letter Doctor SAL 1.2.840.114 [id number] 00:00:00 00:00:00 (Out) Unassigned, NISHANT 350.1.13.10 [place] [facility] 4.2.7.2.686 [id number] [facility] 2020-10-06 2020-10-06 Letter Doctor DORON 1.2.840.114 [id number] 00:00:00 00:00:00 (Out) Unassigned, NISHANT [facility].13.10 [facility] 4.2.7.2.686 [id number] 044 2020-10-06 2020-10-06 Letter Doctor DORON 1.2.840.114 [id number] [facility] 00:00:00 00:00:00 (Out) Unassigned, NISHANT 350.1.13.10 [facility] 4.2.7.2.686 Lino as [phone] [facility] [address] 2020-10-05 2020-10-05 Outpatient [facility] [id number] SLE 00:00:00 00:00:00 2020-10-05 2020-10-05 Outpatient ELVA KHOURY [facility] [id number] [place] 00:00:00 00:00:[address] 2020-09-27 2020-09-27 Office PHONG Lim 1.2.840.114 [id number] [facility] 09:48:17 11:45:41 Visit Polina Baptiste AMBULATOR 350.1.13.21 College Y 0.2.7.2.686 of [id number] [facility] geno 830 e 2020-09-25 2020-09-25 Office Renee [facility] 1.2.840.114 [id number] [facility] 08:52:56 11:06:52 Visit Lee AMBULATOR 350.1.13.21 College Y 0.2.7.2.686 of [id number] [facility] geno 300 e 2020-09-23 2020-09-23 Outpatient GUSTAVO [facility] [id number] 00:00:00 00:00:00 TANNER 743 Ia edward 2020-09-13 2020-09-13 Outpatient CARINA [facility] [id number] SLE 00:00:00 00:00:00 POLINA 2020-09-13 2020-09-13 Outpatient STEPHENIE NOLANDERICK [facility] [id number] SLE 00:00:00 00:00:00 POLINA 2020-09-08 2020-09-08 Outpatient EL SLEH [facility] [id number] [facility] 00:00:00 00:00:00 2020-09-02 2020-09-02 Outpatient ASKED, NO [facility] [id number] [place] 00:00:00 00:00:[address] 2020-08-08 2020-08-08 Outpatient BURK, [facility] [id number] [place] 00:00:00 00:00:00 JASON [address] 2020-07-13 2020-07-14 Outpatient BURK, [facility] 553 [id number] [place] 00:00:00 00:00:00 JASON [address] 2020-07-10 2020-07-10 Outpatient BURK, [facility] [id number] [place] 00:00:00 00:00:00 JASON [address] 2020-07-04 2020-07-04 Outpatient BURK, [facility] [id number] 122 [place] 00:00:00 00:00:00 JASON [address] 2020-06-27 2020-06-27 Outpatient BURK, [facility] [id number] [address] [place] 00:00:00 00:00:00 JASON [address] 2020-06-26 2020-06-26 Outpatient BURK, [facility] [id number] [address] [place] 00:00:00 00:00:00 JASON [address] 2020-06-20 2020-06-20 Outpatient BURK, [facility] [id number] [address] [place] 00:00:00 00:00:00 JASON [address] 2020-04-25 2020-04-25 Outpatient BURK, [facility] [id number] [place] 00:00:00 00:00:00 JSAON [address] 2020-03-07 2020-03-07 Outpatient VIEJAS, [facility] [id number] [place] 00:00:00 00:00:00 SP [address] 2019-10-12 2019-10-12 Office PHONG Valdez 1.2.840.114 [id number] [facility] 09:55:07 11:22:50 Visit Tanner AMBULATOR 350.1.13.21 College P Y 0.2.7.2.686 [facility] [id number] Medi geno 300 e 2019-09-21 2019-09-21 Office PHONG Lim 1.2.840.114 [id number] [facility] 13:24:19 14:41:19 Visit Polina Baptiste AMBULATOR 350.1.13.21 College Y 0.2.7.2.686 of [id number] Medi geno 830 e 2019-08-23 2019-08-23 Office Renee DARLING 1.2.840.114 [id number] [facility] 11:42:57 14:11:07 Visit , Lee AMBULATOR 350.1.13.21 College Y 0.2.7.2.686 of [id number] Medi geno 300 e 2019-06-08 2019-06-08 Outpatient [facility], [facility] [id number] [address] [place] [address] 00:00:00 00:00:00 JASON [address] 2019-03-04 2019-03-04 Office PHONG Lim 1.2.840.114 [id number] [facility] 13:15:29 14:58:57 Visit Polina Baptiste AMBULATOR 350.1.13.21 College Y 0.2.7.2.686 of [id number] [facility] geno 830 e Results Test Description Test Time Test Comments Results Result Comments Source SARS-CoV-2 (COVID-19) RNA [Presence] in Respiratory sp ecimen by 2021-10-03 18:28:56 NETTE with probe detection Test Item Value Reference Range Interpretation Comme nts SARS-CoV-2 (COVID-19) RNA [Presence] in Respiratory specimen by Not detected NETTE with probe detection (test code = 10226-0) Whether patient is employed in a healthcare setting (test code = Un known 63593-1) Whether the patient has symptoms related to condition of interest U nknown (test code = 26112-9) Whether the patient was hospitalized for condition of interest Unkn own (test code = 38314-5) Whether the patient was admitted to intensive care unit (ICU) for U nknown condition of interest (test code = 08991-7) Whether patient resides in a congregate care setting (test code = U nknown 93865-0) status (test code = 20727-5) Unknown Date and time of symptom onset (test code = 47593-6) Unknown SARS-CoV-2 (COVID-19) RNA [Presence] in Respiratory specimen by NETTE with probe [id number] 16:54:02 Test Item Value Reference Range Interpretation Comments SARS coronavirus RNA [Presence] Not detected in Isolate by NETTE with probe detection (test code = 72892-6) Whether patient is employed in a Unknown healthcare setting (test code = 67814-7) Whether the patient has symptoms Unknown related to condition of interest (test code = 50201-5) Whether the patient was Unknown hospitalized for condition of interest (test code = 27046-1) Whether the patient was admitted Unknown to intensive care unit (ICU) for condition of interest (test code = 45581-2) Whether patient resides in a Unknown congregate care setting (test code = 08080-0) status (test code = Unknown 95660-7) Date and time of symptom onset Unknown (test code = 74043-5) SARS-CoV-2 (COVID-19) RNA [Presence] in Respiratory specimen by NETTE with probe [id number] 16:54:02 Test Item Value Reference Range Interpretation Comments SARS-CoV-2 (COVID-19) RNA Not detected [Presence] in Respiratory specimen by NETTE with probe detection (test code = 45818-3) Whether patient is employed in a Unknown healthcare setting (test code = 98305-0) Whether the patient has symptoms Unknown related to condition of interest (test code = 72752-9) Whether the patient was Unknown hospitalized for condition of interest (test code = 57393-9) Whether the patient was admitted Unknown to intensive care unit (ICU) for condition of interest (test code = 05635-1) Whether patient resides in a Unknown congregate care setting (test code = 63719-1) status (test code = Unknown 25949-9) Date and time of symptom onset Unknown (test code = 94873-4) SARS-CoV-2 (COVID-19) RNA [Presence] in Respiratory specimen by NETTE with probe [id number] 21:45:50 Test Item Value Reference Range Interpretation Comments SARS-CoV-2 (COVID-19) RNA Not detected Not-Detected [Presence] in Respiratory specimen by NETTE with probe detection (test code = 93711-9) Whether patient is employed in a healthcare setting (test code = 53998-0) Whether the patient has symptoms related to condition of interest (test code = 79679-8) Patient was hospitalized because of this condition (test code = 08937-2) Whether the patient was admitted to intensive care unit (ICU) for condition of interest (test code = 47089-3) Whether patient resides in a congregate care setting (test code = 34845-7) FL, FLUORO, NON-SPECIFIC, UP TO 1 [id number] 09:10:00Reason for exam:- >RADIOFREQUENCY ABLATION OF GASSERIAN GANGLION [facility] : 1945 Sex: MFluoroscopic unit utilized for a procedure performed in the OR. No interpretation was requested. Refer to the operative report for findings. Refer to PACS for patient radiation dose information.SARS-COV2/RT-PCR ([facility])2020-12-16 07:16:00 Test Item Value Reference Range Interpretation Comments SARS-COV2/RT-PCR (test Negative Not Detected, Negative, code = 3691748) See external report for linked test SARS-COV-2 PERFORMING LAB [facility] GENA (test code = 0764445) Negative result for this test determines that [...] Staples SARS-CoV-2 assay.Fact Sheet for Healthcare Providers:https://www.molecular.staples/stephanie/ EI_HQHV-QuI-2_LOB_Vnip_Iksli_03-923248.pdfFact Sheet for Healthcare Patients:https://www.[employer].ab penny/stephanie/GJ_GWEV-VeE-4_Ycbvkck_Igns_Evwds_NC_61-550297C8.pdfPerforming Laboratory:[place] [address] [place] [address] URINALYSIS [id number] 15:50:00 Test Item Value Reference Range Interpretation Comments RBC UA (BEAKER) (test code = 519) 12 /HPF WBC UA (BEAKER) (test code = 520) 5 /HPF MUCUS (BEAKER) (test code = 1574) Many SQUAMOUS EPITHELIAL (BEAKER) (test 1 /HPF code = 516) HYALINE CASTS (BEAKER) (test code = 6 /LPF 514) CALCIUM OXALATE CRYSTALS (BEAKER) Few (test code = 518) Brush Sander ID - techURINALYSIS WITH MICROSCOPIC IF [id number] 15:30:00 Test Item Value Reference Range Interpretation [...] = 463) SOURCE(BEAKER) (test code = 2795) Brush Sander ID - [auto]BASIC METABOLIC [id number] 15:22:00 Test Item Value Reference Range Interpretation [...] S NOT APPLICABLE FOR DIALYSIS PATIEN TS. Brush Sander ID - [id number] 15:07:00 Test Item Value Reference Range Interpretation Comments PARTIAL THROMBOPLASTIN TIME 32.0 seconds 22.5-36.0 (BEAKER) (test code = 760) PROTHROMBIN TIME/[id number] 15:06:00 Test Item Value Reference Range Interpretation Comments PROTIME (BEAKER) 13.9 seconds 11.9-14.2 (test code = 759) INR (BEAKER) (test 1.11 See_Comment [Automat ed message] code = 370) The system [employer] generated this result transmitted ref erence range: [...] (test code = 2801) RAD, CHEST, 2 [id number] 14:53:00Reason for exam:->[facility]op [facility] 1945 Sex: MFINAL REPORT HISTORY: Preoperative examination COMPARISON: Chest r adiographs of 09/08/2020 and 11/12/2015 FINDINGS: Mild scarring in the right upper lobe. No pleural effusions or pneumothorax. The heart shadow is normal in size. The thoracic aorta is tortuous, unchanged. Degenerative changes are present in the spine. IMPRESSION: No evidence of acute cardiopulmonary disease. Signed: Yumiko Sosa MDReport Verified Date/Time: 12/15/2020 14:53:22 Reading Location: [facility] Radiology Reading Room BF-UdY-5 (COVID-19) RNA [Presence] in Respiratory specimen by NETTE with probe [id number] 15:18:59 Test Item Value Reference Range Interpretation Comments SARS-CoV-2 (COVID-19) RNA Not detected Not-Detected [Presence] in Respiratory specimen by NETTE with probe detection (test code = 79977-1) SARS-COV2/RT-PCR ([facility])2020-09-08 17:47:00 Test Item Value Reference Range Interpretation Comments SARS-COV2/RT-PCR (test Negative Not Detected, Negative, code = 2985929) See external report for linked test SARS-COV-2 PERFORMING LAB [facility] GENA (test code = 2298303) Negative result for this test determines that [...] 564(g) of the Act.Fact Sheet for Healthcare Providers:https://www.[employer]sites/default/files/product/documents/Fact_Shee l_WO_Eqcgploqw_Gerf_IEGB-OgG-8.pdfFact Sheet for Healthcare Patients:https://www.[employer]sites/default/files/product/ documents/Goyy_Visid_Ltitlxfn_Nwig_IHHL-HfG-6.pdfPerforming Laboratory:[facility], [place] [address]VAV, CHEST, 2 VIEWS 2020-09-08 12:56:00Reason for exam:->Trigeminal neuralgia [facility] : 1945 Sex: MFINAL REPORT TECHNIQUE: Frontal [...] evaluation with achest CT is recommended. Signed: Dariusz Lieport Verified Date/Time: 09/08/2020 12:56:25 E lectronically signed by: DARIUSZ LI MD on 09/08/2020 12:56 PMPROTHROMBIN TIME/[id number] 11:09:00 Test Item Value Reference Range Interpretation Comments PROTIME (BEAKER) 14.1 seconds 11.9-14.2 (test code = 759) INR (BEAKER) (test 1.12 See_Comment [Automat ed message] code = 370) The system [employer] generated this result transmitted ref erence range: <=5.90. The reference range was not used to int erpret this result as normal/abnormal . Effective 12/23/2018: PT Reference Range ChangeNew: 11.9-14.2 Previous: 11.7- 14.7RECOMMENDED COUMADIN/WARFARIN INR THERAPY RANGESSTANDARD DOSE: 2.0-3.0 Includes: PROPHYLAXIS for venous thrombosis, systemic embolization; TREATMENT for venous thrombosis and/or pulmonary embolus.HIGH RISK: Target INR is2.5-3.5 for patients wiht mechanical heart valves.[id number] 11:09:00 Test Item Value Reference Range Interpretation Comments PARTIAL THROMBOPLASTIN TIME 25.8 seconds 22.5-36.0 (BEAKER) (test code = 760) BASIC METABOLIC [id number] 11:07:00 Test Item Value Reference Range Interpretation [...] S NOT APPLICABLE FOR DIALYSIS PATIEN TS. Brush Sander ID - PIAYA LCBC W/PLT COUNT & AUTO [id number] 10:57:00 Test Item Value Reference Range Interpretation [...] in Respiratory specimen by NETTE with probe [id number] 20:54:07 Test Item Value Reference Range Interpretation Comments SARS-CoV-2 (COVID-19) RNA Not detected Not-Detected [Presence] in Respiratory specimen by NETTE with probe detection (test code = 03885-9) FL, FLUORO, NON-SPECIFIC, UP TO 1 [id number] 09:54:00Reason for exam:- >RADIOFREQUENCY ABLATION OF TRIGEMINAL NERVEFINAL REPORT A fluoroscopic unit was utilized for a procedure performed in the operating room. No interpretation was requested. Please refer to the operative report regarding findings. Please refer to PACS for patient radiation dose information. Signed: Mini Longo Verified Date/Time: 08/31/2019 09:54:29 Reading Location: [facility] Radiology Reading Room BASIC METABOLIC [id number] 07:46:00 Test Item Value Reference Range Interpretation [...] S NOT APPLICABLE FOR DIALYSIS PATIEN TS. Brush Sander ID - ZORAIDA [id number] 07:13:00 Test Item Value Reference Range Interpretation Comments PARTIAL THROMBOPLASTIN TIME 33.7 seconds 22.5-36.0 (BEAKER) (test code = 760) PROTHROMBIN TIME/[id number] 07:12:00 Test Item Value Reference Range Interpretation [...] mechanical heart valves.CBC W/PLT COUNT & AUTO [id number] 07:06:00 Test Item Value Reference Range Interpretation [...] MR, SPINE, CERVICAL, WITHOUT / WITH IV [id number] 11:05:00FINAL REPORT Exam: Cervical spine MRI without with IV contrastHistory: 73-year-old male with multiple sclerosisComparison studies: Cervical spine MRI 03/26/2018. Technique:Precontrast sagittal T1, T2 and inversion recovery, axial T1 and T2 cervical and thoracic. Postcontrast axial and sagittal R2Ichyasrldjo contrast: 9 cc of Gadavist. Findings: Several pulse sequences are somewhat limited by artifacts related to patient motion. Spinal Cord: Normal in size and signal from the foramen magnum through T1. T2 lesion load: No gross new lesions. Multiple scattered demyelinating lesions. Food And Nutrition Professor lesions are grossly unchanged and described as [...] MDReport Verified Date/Time: 02/16/2019 11:05:03 Reading Location: [facility] Room [address] [place] [address] signed by: Yumiko Abad on 02/16/2019 11:05 AMMR, BRAIN, WITHOUT / WITH IV [id number] 10:50:00FINAL REPORT Exam: Brain MRI without with [...] MDReport Verified Date/Time: 02/16/2019 10:50:04 Reading Location: [facility] Reading Room [address] [place] [address] POCT-CREATININE 2019-02-15 10:10:00 Test Item Value Reference Range Interpretation Comments POC-CREATININE 1.2 mg/dL 0.6-1.3 TESTED AT [facility] 7200 ([facility]) (test [facility] G A code = 1859) [facility] 7703 0 POC-EGFR 60 mL/min/1.73M2 ([facility]) (test code = 1860) [facility] IN OR/30 MINUTE [id number] 13:40:00Reason for exam:- >Trigeminal NeuralgiaFINAL REPORT Fluoroscopy 5 views intraoperative 07/17/2018 1:37 PM CLINICAL HISTORY: Instrument localization COMPARISON: None available IMPRESSION: Please correlate imaging report findings with the procedure note prepared by Dr. Duran, as an intra-procedure imaging consultation was not requested. Reported fluoroscopy time: 49.4 seconds. Signed: Tori Sarkar Verified Date/Time: 07/17/2018 13:40:25 Reading Location: [facility] Radiology Reading Room
[2021-11-28] MEDS ORDERED: LIDOCAINE 1% 20 ML MDV ONE (15:16)
--- NOTE | 2021-11-28 15:29 | RAD REPORT ---
EXAM DESCRIPTION: CT - Head Brain Wo Cont - 11/28/2021 3:18 pm CLINICAL HISTORY: Head trauma, minor COMPARISON: Head Brain Wo Cont dated 08/10/2021; Head Brain Wo Cont dated 08/01/2016 TECHNIQUE: All CT scans are performed using dose optimization technique as appropriate and may inclu de automated exposure control or mA/KV adjustment according to patient size. FINDINGS: No intracranial hemorrhage, hydrocephalus or extra-axial fluid collection.No areas of brai n edema or evidence of midline shift. Probably remote bilateral taylor radiata infarcts. Moderate chr onic small vessel ischemic changes. The paranasal sinuses and mastoids are clear. The calvarium is intact. IMPRESSION: No acute intracranial abnormality.
--- NOTE | 2021-11-28 16:43 | ER ---
Nurse's Notes [facility] Name: Terrance Monroy Age: 76 yrs Sex: Male : 1945 Arrival Date: 11/28/2021 Time: 14:41 Bed 4 Private MD: Jyothi Mccollum C Diagnosis: Laceration without foreign body of right ear;Laceration without foreign body of scalp;Fall on same level, unspecified Presentation: 11/28 14:49 Chief complaint: Patient states: At physical therapy for right sided-deficit from jl7 previous CVA and feet got ahead if him, fell and hit his head, did not loose consciousness, takes Pradaxa. Care prior to arrival: None. Mechanism of Injury: Fall from standing position. approximately 6 feet. Trauma event details: Injury occurred in the [facility], Injury occurred: in an institution. Injury occurred: November 28, 2021 Injury occurred at: 14:00. 14:49 Acuity: RADHA 2 jl7 14:49 Method Of Arrival: Wheelchair [facility] 14:55 Coronavirus screen: At this time, the client does not indicate any symptoms associated jl with coronavirus-19. Ebola Screen: No symptoms or risks identified at this time. Initial Sepsis Screen: Does the patient meet any 2 criteria? No. Patient's initial sepsis screen is negative. Does the patient have a suspected source of infection? No. Patient's initial sepsis screen is negative. Risk Assessment: Do you want to hurt yourself or someone else? Patient reports no desire to harm self or others. Onset of symptoms was November 28, 2021 at 14:00. Historical: - Allergies: 14:56 No Known Allergies; jl7 - Home Meds: 14:56 Pradaxa oral [Active]; jl7 - PMHx: 14:56 Atrial Fib; atrial flutter; back spasms; back surgery; High Cholesterol; Hypertension; jl7 Hypothyroidism; MS; TMJ; Trigeminal nueralgia; ulcerative colitis; Cerebrovascular accident; - Immunization history: Last tetanus immunization: unknown. - Social history:: Smoking status: Patient denies any tobacco usage or history of. Screenin:49 Abuse screen: Denies threats or abuse. Denies injuries from another. Tuberculosis jl7 screening: No symptoms or risk factors identified. 15:00 Fall Risk Gait- Impaired (20 pts.). jh6 15:00 Nutritional screening: No deficits noted. 6 Primary Survey: 14:49 NO uncontrolled hemorrhage observed. A: The client is awake and alert. The airway is jl7 patent. Breathing/Chest: Spontaneous respiratory effort, equal unlabored respirations, breath sounds clear bilaterally, regular pattern, symmetrical chest rise and fall. Circulation: No external hemorrhage present. Regular and strong central pulse, skin warm/dry/normal color. Disability Client is alert. Exposure/Environment: There is no evidence of uncontrolled external bleeding. Obvious injury(ies) are noted at this time: laceration noted to right earlobe A warming method has been applied: A warm blanket has been provided to the patient. Assessment: 14:49 General: Appears in no apparent distress. uncomfortable, Behavior is calm, cooperative, jl7 appropriate for age. Pain: Complains of pain in right ear Pain currently is 0 out of 10 on a pain scale. 15:45 Reassessment: Patient and/or family updated on plan of care and expected duration. Pain 6 level reassessed. Patient is alert, oriented x 3, equal unlabored respirations, skin warm/dry/pink. Patient denies pain at this time. Neuro: No deficits noted. 16:37 Reassessment: No changes from previously documented assessment. Patient and/or family 6 updated on plan of care and expected duration. Pain level reassessed. RT EAR LAC CLEANED AND SUTURED WITHOUT ISSUE Patient denies pain at this time. Vital Signs: 14:49 BP 163 / 101; Pulse 77; Resp 17; Temp 97.7; Pulse Ox 100% on R/A; Weight 72.57 kg; jl7 Height 6 ft. 4 in. (193.04 cm); Pain 0/10; 16:37 BP 178 / 94; Pulse 82; Resp 18; Pulse Ox 100% ; Pain 0/10; jh6 14:49 Body Mass Index 19.48 (72.57 kg, 193.04 cm) jl7 Milmay Coma Score: 14:49 Eye Response: spontaneous(4). Verbal Response: oriented(5). Motor Response: obeys jl7 commands(6). Total: 15. 14:50 Eye Response: spontaneous(4). Verbal Response: oriented(5). Motor Response: obeys cp commands(6). Total: 15. Trauma Score (Adult): 14:49 Eye Response: spontaneous(1); Verbal Response: oriented(1); Motor Response: obeys jl7 commands(2); Systolic BP: > 89 mm Hg(4); Respiratory Rate: 10 to 29 per min(4); Roxanna Score: 15; Trauma Score: 12 ED Course: 14:41 Patient arrived in ED. as 14:41 Jyothi Mccollum MD is Private Physician. as 14:43 [facility] cp 14:43 Remington Kelly MD is Attending Physician. cp 14:49 Patient has correct armband on for positive identification. Call light in reach. Side jl7 rails up X2. 14:49 Patient maintains SpO2 saturation greater than 95% on room air. Thermoregulation: warm jl7 blanket given to patient. 14:53 Triage completed. jl7 14:56 Arm band placed on right wrist. jl7 15:03 Sara Serrato, HEIDI is Primary Nurse. jh6 15:[address] jh6 15:19 CT Head Brain wo Cont In Process Unspecified. EDMS 16:42 Jyothi Mccollum MD is Referral Physician. cp 16:44 Dressings: Band aid x 1 right ear lobe. Irrigation on scalp Patient tolerated well. jh6 Wound care: to laceration located on left parietal area and right parietal area was cleaned with Hibiclens, irrigated with normal saline, ice pack applied. Patient tolerated well. 16:46 Assist provider with laceration repair on head and back of head that was 2.5 cm. or 6 less Set up tray. Performed by Ruddy WHITING Dressed with band aid, Patient tolerated well. Administered Medications: 16:10 Drug: Lidocaine (1 %) 20 ml Volume: 20 ml; Route: Infiltration; 6 Outcome: 16:43 Discharge ordered by MD. cp 17:03 Discharged to home ambulatory. jh6 17:03 Condition: improved 17:03 Discharge instructions given to patient, family, Instructed on discharge instructions, Demonstrated understanding of instructions, follow-up care. 17:04 Patient left the ED. 6 Signatures: Dispatcher [employer] EDMS Serena Sauceda as Ruddy West PA PA cp Leal, Jahala, RN RN [facility] Sara Serrato RN RN [facility]
--- NOTE | 2021-11-28 16:43 | EDPHYS ---
Physician Documentation [facility] Name: Terrance Monroy Age: 76 yrs Sex: Male : 1945 Arrival Date: 11/28/2021 Time: 14:41 Bed 4 Private MD: Jyothi Mccollum C ED Physician Remington Kelly HPI: 11/28 14:50 This 76 yrs old Male presents to ER via Wheelchair with complaints of Head Injury cp Without LOC-Adult, Laceration. 14:50 The patient or guardian reports injury. The complaints affect the back of head and cp right earlobe. 14:50 Context of injury: The problem was sustained at rehab center, resulted from a fall, cp while walking, lost balance. Onset: The symptoms/episode began/occurred just prior to arrival. Associated signs and symptoms: Loss of consciousness: This patient did not experience any loss of consciousness. Pertinent negatives: incontinence, neck pain, seizure, vomiting, weakness in extremities, generalized weakness. Historical: - Allergies: 14:56 No Known Allergies; jl7 - Home Meds: 14:56 Pradaxa oral [Active]; jl7 - PMHx: 14:56 Atrial Fib; atrial flutter; back spasms; back surgery; High Cholesterol; Hypertension; jl7 Hypothyroidism; MS; TMJ; Trigeminal nueralgia; ulcerative colitis; Cerebrovascular accident; - Immunization history: Last tetanus immunization: unknown. - Social history:: Smoking status: Patient denies any tobacco usage or history of. ROS: 15:00 Constitutional: Negative for body aches, chills, fever, poor PO intake. cp 15:00 Eyes: Negative for injury, pain, redness, and discharge. cp 15:00 Neck: Negative for pain with movement, pain at rest, stiffness. 15:00 Cardiovascular: Negative for chest pain. 15:00 Respiratory: Negative for cough, shortness of breath, wheezing. 15:00 Abdomen/GI: Negative for abdominal pain, vomiting, diarrhea, constipation. 15:00 Back: Negative for pain at rest, pain with movement. 15:00 Neuro: Negative for altered mental status, dizziness, headache, loss of consciousness, seizure activity, syncope, weakness. 15:00 All other systems are negative. Exam: 15:05 Constitutional: The patient appears in no acute distress, alert, awake, cp non-diaphoretic, non-toxic, well developed, well nourished. 15:05 Head/face: Noted is a laceration(s), that is deep, that is linear, of the scalp and cp right ear lobe. 15:05 Eyes: Periorbital structures: appear normal, Pupils: equal, round, and reactive to light and accomodation, Extraocular movements: intact throughout, Conjunctiva: normal, no exudate, no injection, Sclera: no appreciated abnormality, Lids and lashes: appear normal, bilaterally. 15:05 ENT: Ear canal(s): are normal, clear, TM's: dullness, bilaterally, Nose: is normal, Mouth: Lips: moist, Oral mucosa: pink and intact, moist, Posterior pharynx: Airway: no evidence of obstruction, patent. 15:05 Neck: C-spine: vertebral tenderness, is not appreciated, crepitus, is not appreciated, ROM/movement: is normal, is supple, without pain, no range of motions limitations. 15:05 Chest/axilla: Inspection: normal, Palpation: is normal, no crepitus, no tenderness. 15:05 Cardiovascular: Rate: normal, Rhythm: irregular, Edema: is not appreciated, JVD: is not appreciated. 15:05 Respiratory: the patient does not display signs of respiratory distress, Respirations: normal, no use of accessory muscles, no retractions, labored breathing, is not present, Breath sounds: are clear throughout, no decreased breath sounds, no stridor, no wheezing. 15:05 Abdomen/GI: Inspection: abdomen appears normal, Palpation: abdomen is soft and non-tender. 15:05 Back: pain, is absent, ROM is normal. 15:05 Neuro: Orientation: to person, place \T\ time. Mentation: is normal, Motor: moves all fours, Sensation: no acute changes. Vital Signs: 14:49 BP 163 / 101; Pulse 77; Resp 17; Temp 97.7; Pulse Ox 100% on R/A; Weight 72.57 kg; jl7 Height 6 ft. 4 in. (193.04 cm); Pain 0/10; 16:37 BP 178 / 94; Pulse 82; Resp 18; Pulse Ox 100% ; Pain 0/10; jh6 14:49 Body Mass Index 19.48 (72.57 kg, 193.04 cm) jl7 Austin Coma Score: 14:49 Eye Response: spontaneous(4). Verbal Response: oriented(5). Motor Response: obeys jl7 commands(6). Total: 15. 14:50 Eye Response: spontaneous(4). Verbal Response: oriented(5). Motor Response: obeys cp commands(6). Total: 15. Trauma Score (Adult): 14:49 Eye Response: spontaneous(1); Verbal Response: oriented(1); Motor Response: obeys jl7 commands(2); Systolic BP: > 89 mm Hg(4); Respiratory Rate: 10 to 29 per min(4); Roxanna Score: 15; Trauma Score: 12 Laceration: 16:39 Wound Repair of 1.5cm ( 0.6in ) subcutaneous laceration to right earlobe. Skin/tissue cp flap noted.. Distal neuro/vascular/tendon intact. Anesthesia: Wound infiltrated with 1 mls of 1% lidocaine. Wound prep: Simple cleansing by me. Skin closed with 2 5-0 Prolene using interrupted sutures and sterile technique. Dressed with Bacitracin. Patient tolerated well. 16:39 Wound Repair of 3cm ( 1.2in ) subcutaneous laceration to scalp. Linear shaped.. Distal cp neuro/vascular/tendon intact. Anesthesia: Wound infiltrated with 4 mls of 1% lidocaine. Wound prep: Simple cleansing by me. Skin closed with 4 Alfredo using staple gun. Dressed with Bacitracin. Patient tolerated well. MDM: 14:45 Patient medically screened. 16:42 Data reviewed: vital signs, nurses notes, radiologic studies, CT scan. 16:42 Counseling: I had a detailed discussion with the patient and/or guardian regarding: the cp historical points, exam findings, and any diagnostic results supporting the discharge/admit diagnosis, radiology results, to return to the emergency department if symptoms worsen or persist or if there are any questions or concerns that arise at home. Special discussion: Based on the patient's history, exam and DX evaluation, there is no indication for emergent intervention or inpatient TX. It is understood by the patient/guardian that if the SXs persist or worsen they need to return immediately for re-evaluation. 11/28 14:48 Order name: CT Head Brain wo Cont; Complete Time: 15:32 cp 11/28 15:33 Interpretation: Report reviewed. cp 11/28 14:48 Order name: Dressing - Wound; Complete Time: 16:49 cp 11/28 14:48 Order name: Gloves, Sterile; Complete Time: 16:49 cp 11/28 14:48 Order name: Setup Suture Tray; Complete Time: 16:49 cp 11/28 15:36 Order name: Wound Care: please clean and irrigate wounds; Complete Time: 16:49 cp 11/28 16:35 Order name: Wound dressing; Complete Time: 16:48 cp Administered Medications: 16:10 Drug: Lidocaine (1 %) 20 ml Volume: 20 ml; Route: Infiltration; jh6 Disposition: 19:01 Co-signature as Attending Physician, Remington Kelly MD. rn Disposition Summary: 11/28/21 16:43 Discharge Ordered Location: Home cp Problem: new cp Symptoms: have improved cp Condition: Stable cp Diagnosis - Laceration without foreign body of right ear cp - Laceration without foreign body of scalp cp - Fall on same level, unspecified cp Followup: cp - With: Jyothi Mccollum MD - When: 1 week - Reason: Staple/Suture removal Discharge Instructions: - Discharge Summary Sheet cp - Head Injury, Adult cp - Sutures, Alfredo, or Adhesive Wound Closure cp - Laceration Care, Adult cp Forms: - Medication Reconciliation Form cp - Thank You Letter cp - Antibiotic Education cp - Prescription Opioid Use cp Signatures: Dispatcher [employer] Remington Gallagher MD MD rn Ruddy West PA PA cp Kirit Stock RN RN jl7 Sara Serrato RN RN jh6
[2021-11-28 17:09] VITALS: TEMP 97.7; O2SAT 100
[2021-11-28 17:10] VITALS: BP 178/94
== END 2021-11-28 17:04 | disposition home or self-care (01) ==
LOC: ER 14:40
PROC: 0JQ00ZZ Repair Scalp Subcutaneous Tissue and Fascia, Open Approach (ICD-10-PCS; principal; 2021-11-28)
PROC: 0HQ2XZZ Repair Right Ear Skin, External Approach (ICD-10-PCS; 2021-11-28)
DX: S01.01XA Laceration without foreign body of scalp, initial encounter (principal); S01.312A Laceration without foreign body of left ear, initial encounter; W18.30XA Fall on same level, unspecified, initial encounter; Y93.01 Activity, walking, marching and hiking; Y92.89 Other specified places as the place of occurrence of the external cause; Z86.73 Personal history of transient ischemic attack (TIA), and cerebral infarction without residual deficits; E78.00 Pure hypercholesterolemia, unspecified; E03.9 Hypothyroidism, unspecified; I10 Essential (primary) hypertension; I48.91 Unspecified atrial fibrillation
CPT/HCPCS: 70450; 99285

== ENCOUNTER 2021-12-06 07:27 | Emergency (ER) | payer OTHER ==
--- OUTSIDE RECORDS SUMMARY | 2021-12-06 07:32 | XMS REPORT | Continuity of Care Document ---
:1945 Author Organization [facility] t Address [address] [place] [address] Care Team Providers Name Role Phone Timothy GLEZ Primary Care Physician Unavailable AYAKA Attending Clinician Unavailable TODD Attending Clinician Unavailable Oliva Lim MD Attending Clinician BHARGAVI Attending Clinician Unavailable LA JOLLA Attending Clinician Unavailable MD JOELLE BROOKS Attending Clinician Unavailable Ayaka RAMOS Attending Clinician ADRYAN LIM Attending Clinician Unavailable BRET Attending Clinician Unavailable MD BHARGAVI RAntonino Attending Clinician Unavailable Lab, Fam Pob I Attending Clinician Unavailable Aneshama FERRYBOAT PILOT Attending Clinician LEONIE Attending Clinician Unavailable Doctor Unassigned, Name Attending Clinician Unavailable IRAIDA Attending Clinician Unavailable GUSTAVO Attending Clinician Unavailable ASKED Attending Clinician Unavailable José Miguel RAMOS, P Attending Clinician AYAKA Admitting Clinician Unavailable TODD Admitting Clinician Unavailable LA JOLLA Admitting Clinician Unavailable MD JOELLE BROOKS Admitting Clinician Unavailable BRET Admitting Clinician Unavailable BHARGAVI Admitting Clinician Unavailable MD Gene BUKR Admitting Clinician Unavailable Payers Payer Name Policy Type Policy Number Effective Date Ex[place] [facility] [place] B [id number] 2011 2017 00:00:00 00:00:00 [employer] MEDICARE [id number] 2017 2020 ADV 00:00:00 00:00:00 AETNA INDEMNITY [id number] 2012 2016 NON CONTR 00:00:00 00:00:00 [facility] [id number] 2020 2020 00:00:00 00:00:00 UNITED MEDICARE [id number] 2020 HMO 00:00:00 MEDICARE ADVANTAGE [id number] 2020 PPO - [facility] 00:00:00 ZZZTRS-CARE [id number] 2020 MEDICARE ADVANTAGE 00:00:00 MEDICARE PART A [id number] \T\ B - MEDICARE INDEMNITY/TRADITIO [id number] NAL CHOICE - AETNA Problems Condition Condition Condition Status Onset Resolution Last Treating Co mments Source Name Details Category Date Date Treatment Clinician Date ANAYELI ANAYELI Disease Active [facility] (obstructi (obstructi 10-21 Co llege ve sleep ve sleep 00:00: of apnea) apnea) 00 Medicin e Chronic Chronic Disease Active [facility] atrial atrial 3 College fibrillati fibrillati 00:00: of on on 00 Medicin e 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 8-19 [facility] (HCCode) (HCCode) 00:00: of 00 Medicin e 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 8-19 Co llege l l 00:00: of neuralgia) neuralgia) 00 Me dicin e Allergies, Adverse Reactions, Alerts Allergy Allergy Status Severity Reaction(s) Onset Inactive Treating Comm ents Source Name Type Date Date Clinician Clopidog Propensi Active Other [facility] rel ty to 1-15 reaction( College Bisulfat adverse 00:00: s): of e reaction 00 Nausea/Vo Medic in s to miting e drug NO KNOWN Allergy Active [facility] NO KNOWN Drug Active [facility] ALLERGIE Class ity of [facility] Social History Social Habit Start Date Stop Date Quantity Comments Source History [facility] ge of Alcohol Std Medicine Drinks History [facility] ge of Alcohol Binge Medicine Alcohol intake 2021-10-15 2021-10-15 .29 /d [facility] Col lege of 00:00:00 00:00:00 Medicine Exposure to 2021-09-08 2021-10-08 Yes [facility] Colleg e of SARS-CoV-2 00:00:00 11:42:00 Medicine (event) History SDOH 2019-08-23 2019-08-23 2 [facility] Colle ge of Alcohol Frequency 00:00:00 00:00:00 Medicin e Alcohol Comment 2016-04-08 2016-04-08 social [facility] Co llege of 00:00:00 00:00:00 Medicine Tobacco use and 2015-03-15 2015-03-15 Smokeless tobacco [facility] College of exposure 00:00:00 00:00:00 non-user Medicine History of 1977-03-15 Cigarette Smoker [facility] ollege of tobacco use 00:00:00 Medicine Sex Ass[birth year] [facility] of 00:00:00 00:00:00 [facility] Smoking Status Start Date Stop Date Source Unknown if ever smoked [facility] Ex-smoker 2015-03-15 00:00:00 2015-03-15 00:00:00 [facility] olle of Medicine Medications Ordered Filled Start Stop Current Ordering Indication Dosage Frequency Signature Comments Components Source Medication Medication Date Date Medication? Clinician (SIG) Name Name Dabigatran Yes Take by [facility] al[facility] Etexilate 3-21 mouth two Colle ge Mesylate 09:45: times of 150 MG CAPS 41 daily. Medici n e Mesalamine Yes Take by Wolfe lauren 1.2 g TBEC 3-21 mouth. [place] 09:45: of 41 Medicin e Cholecalcif Yes 5000mg Take 5,000 [facility] kerline 3-21 mg by [place] (VITAMIN D 09:45: mouth of OR) 41 [...] 175 [facility] ne 3-21 mcg by [place] (SYNTHROID) 09:45: mouth of 175 MCG 41 daily. Medicin tablet e oxcarbazepi Yes 300mg Take 300 [facility] ne 3-21 mg by [place] (TRILEPTAL) 09:45: mouth two o f 300 MG 41 times Medicin tablet daily. e Alfuzosin Yes [id number] TAKE ONE [facility] HCl 10 MG 2-22 9100 TABLET BY [facility] ge TB24 00:00: MOUTH AT of 00 BEDTIME Medicin e amlodipine Yes as needed. [facility] (NORVASC) 2-12 [place] 2.5 MG 00:00: of tablet 00 Medicin e Amantadine 2020-07 Yes TAKE ONE [facility] HCl 100 MG 2-13 TABLET BY [facility] TABS 00:00: MOUTH of 00 TWICE A Medicin DAY e modafinil Yes TAKE ONE [facility] (PROVIGIL) 9-24 TABLET BY [facility] 200 MG 00:00: MOUTH of tablet 00 TWICE A Medicin DAY e Dabigatran Yes Take by Wolfe lauren Etexilate 9-20 mouth two Colle ge Mesylate 10:10: times of (PRADAXA) 55 daily. Medicin 150 MG CAPS e Mesalamine Yes Take by [facility]fe la[facility] (LIALDA) 9-20 mouth. College 1.2 G TBEC 10:10: of 55 Medicin e Cholecalcif Yes 5000mg Take 5,000 [facility] kerline 9-20 mg by [place] (VITAMIN D 10:10: mouth of OR) 55 [...] 175 [place] ne 9-20 mcg by [place] (SYNTHROID) 10:10: mouth of 175 MCG 55 daily. Medicin tablet e oxcarbazepi Yes 300mg Take 300 [facility] [place] ne 9-20 mg by [place] (TRILEPTAL) 10:10: mouth two o f 300 MG 55 times Medicin tablet daily. e Dabigatran Yes Take by [facility] lauren Etexilate 9-20 mouth two Colle ge Mesylate 10:10: times of (PRADAXA) 55 daily. Medicin 150 MG CAPS e Mesalamine Yes Take by [facility] la[facility] (LIALDA) 9-20 mouth. [place] 1.2 G TBEC 10:10: of 55 Medicin e Cholecalcif Yes 5000mg Take 5,000 [facility] kerline 9-20 mg by [place] (VITAMIN D 10:10: mouth of OR) 55 [...] 175 [place] ne 9-20 mcg by [place] (SYNTHROID) 10:10: mouth of 175 MCG 55 daily. Medicin tablet e oxcarbazepi Yes 300mg Take 300 [facility] [place] ne 9-20 mg by [place] (TRILEPTAL) 10:10: mouth two o f 300 [...] Medicin daily. e Amantadine Yes TAKE ONE [facility] HCl 100 MG 7-27 TABLET BY [facility] TABS 00:00: MOUTH of 00 TWICE A Medicin DAY e Amantadine Yes TAKE ONE [facility] HCl 100 MG 7-27 TABLET BY [facility] TABS 00:00: MOUTH of 00 TWICE A Medicin DAY e amiodarone Yes 1 tablet [facility] (PACERONE) 7-09 by mouth Colle ge 200 MG 00:00: twice a of tablet 00 day Medicin e modafinil 2020- No TAKE ONE [facility] (PROVIGIL) 01-18 TABLET BY Col lege 200 MG 00:00: 00:00 MOUTH of tablet 00 :00 TWICE A Medicin DAY e modafinil 2020- No TAKE ONE [facility] (PROVIGIL) 01-18 TABLET BY Col lege 200 MG 00:00: 00:00 MOUTH of tablet 00 :00 TWICE A Medicin DAY e midodrine Yes 1{tbl} Take 1 [facility] (PROAMATINE 6-07 Tablet by Col lege ) 5 MG 00:00: mouth 3 of tablet 00 times Medicin daily. e Dabigatran Yes Take by [facility]fe lauren Etexilate 5-24 mouth two Colle ge Mesylate 09:11: times of (PRADAXA) 20 daily. Medicin 150 MG CAPS e Mesalamine Yes Take by [facility] lauren (LIALDA) 5-24 mouth. College 1.2 G TBEC 09:11: of 20 Medicin e Cholecalcif Yes 5000mg Take 5,000 [facility] kerline 5-24 mg by [place] (VITAMIN D 09:11: mouth of OR) 20 [...] 175 [place] ne 5-24 mcg by [place] (SYNTHROID) 09:11: mouth of 175 MCG 20 daily. Medicin tablet e oxcarbazepi Yes 300mg Take 300 [facility] [place] ne 5-24 mg by [place] (TRILEPTAL) 09:11: mouth two o f 300 MG 20 times Medicin tablet daily. e digoxin Yes 125ug Take 125 [facility] (LANOXIN) 4-13 mcg by [place] 125 MCG 00:00: mouth at of tablet 00 bedtime. Medicin e digoxin Yes 125ug Take 125 [facility] (LANOXIN) 4-13 mcg by [place] 125 MCG 00:00: mouth at of tablet 00 bedtime. Medicin e digoxin Yes 125ug Take 125 [facility] (LANOXIN) 4-13 mcg by [place] 125 MCG 00:00: mouth at of tablet 00 bedtime. Medicin e digoxin Yes 125ug Take 125 [facility] (LANOXIN) 4-13 mcg by [place] 125 MCG 00:00: mouth at of tablet 00 bedtime. Medicin e digoxin Yes 125ug Take 125 [facility] (LANOXIN) 4-13 mcg by [place] 125 MCG 00:00: mouth at of tablet 00 bedtime. Medicin e Dabigatran Yes Take by Wolfe lauren Etexilate 3- mouth two Colle ge Mesylate 15:43: times of (PRADAXA) 03 daily. Medicin 150 MG CAPS e Mesalamine Yes Take by Wolfe lauren (LIALDA) 3- mouth. [place] 1.2 G TBEC 15:43: of 03 Medicin e Cholecalcif Yes 5000mg Take 5,000 [facility] kerline 3- mg by [place] (VITAMIN D 15:43: mouth of OR) 03 [...] 175 [place] ne 3-01 mcg by [place] (SYNTHROID) 15:43: mouth of 175 MCG 03 daily. Medicin tablet e oxcarbazepi Yes 300mg Take 300 [facility] [place] ne 3-01 mg by [place] (TRILEPTAL) 15:43: mouth two o f 300 MG 03 times Medicin tablet daily. e Dabigatran Yes Take by [facility] lauren Etexilate 3-01 mouth two Colle ge Mesylate 15:43: times of (PRADAXA) 03 daily. Medicin 150 MG CAPS e Mesalamine 0 Yes Take by Wolfe lauren (LIALDA) 3-01 mouth. [place] 1.2 G TBEC 15:43: of 03 Medicin e Cholecalcif 2020-0 Yes 5000mg Take 5,000 [facility] kerline 3-01 mg by [place] (VITAMIN D 15:43: mouth of OR) 03 [...] 175 [place] ne 3-01 mcg by [place] (SYNTHROID) 15:43: mouth of 175 MCG 03 daily. Medicin tablet e oxcarbazepi 0 Yes 300mg Take 300 [place] ne 3-01 mg by [place] (TRILEPTAL) 15:43: mouth two o f 300 MG 03 times Medicin tablet daily. e Dabigatran Yes Take by Wolfe lauren Etexilate 3- mouth two Colle ge Mesylate 15:43: times of (PRADAXA) 03 daily. Medicin 150 MG CAPS e Mesalamine 0 Yes Take by Wolfe lauren (LIALDA) 3- mouth. [place] 1.2 G TBEC 15:43: of 03 Medicin e Cholecalcif 2020-0 Yes 5000mg Take 5,000 [facility] kerline 3-01 mg by [place] (VITAMIN D 15:43: mouth of OR) 03 [...] 175 [place] ne 3-01 mcg by [place] (SYNTHROID) 15:43: mouth of 175 MCG 03 daily. Medicin tablet e oxcarbazepi Yes 300mg Take 300 [facility] ne 3-01 mg by [place] (TRILEPTAL) 15:43: mouth two o f 300 MG 03 times Medicin tablet daily. e olmesartan 2020- No 5mg Take 5 mg [facility] (BENICAR) 5 -07 30- by mouth Col lege MG tablet 15:41: 00:00 daily. of 20 :00 Medicin e amlodipine 2020- No 2.5mg Take 2.5 [facility] (NORVASC) 09-25 03- mg by [place] 2.5 MG 15:41: 00:00 mouth of tablet 08 :00 daily. Medicin e rosuvastati Yes 10mg Take 10 mg [facility] n (CRESTOR) 2-26 by mouth [facility] 10 MG 00:00: daily. of tablet 00 Medicin e rosuvastati Yes 10mg Take 10 mg [facility] n (CRESTOR) 2-26 by mouth [facility] 10 MG 00:00: daily. of tablet 00 Medicin e rosuvastati Yes 10mg Take 10 mg [facility] n (CRESTOR) 2-26 by mouth [facility] 10 MG 00:00: daily. of tablet 00 Medicin e rosuvastati Yes 10mg Take 10 mg [facility] n (CRESTOR) 2-26 by mouth [facility] 10 MG 00:00: daily. of tablet 00 Medicin e rosuvastati Yes 10mg Take 10 mg [facility] n (CRESTOR) 2-26 by mouth [facility] 10 MG 00:00: daily. of tablet 00 Medicin e rosuvastati Yes 10mg Take 10 mg [facility] n (CRESTOR) 2-26 by mouth [facility] 10 MG 00:00: daily. of tablet 00 Medicin e rosuvastati Yes 10mg Take 10 mg [facility] n (CRESTOR) 2-26 by mouth [facility] 10 MG 00:00: daily. of tablet 00 Medicin e Alfuzosin 2021-0 Yes [id number] 10mg Take 10 mg [facility] HCl 10 MG 2-16 9100 by mouth Colleg e TB24 00:00: at of 00 bedtime. Medicin e Alfuzosin 2020-0 Yes [id number] 10mg Take 10 mg [facility] HCl 10 MG 2-16 9100 by mouth Colleg e TB24 00:00: at of 00 bedtime. Medicin e Alfuzosin 1-0 Yes [id number] 10mg Take 10 mg [facility] HCl 10 MG 2-16 9100 by mouth Colleg e TB24 00:00: at of 00 bedtime. Medicin e Alfuzosin 2020-0 Yes [id number] 10mg Take 10 mg [facility] HCl 10 MG 2-16 9100 by mouth Colleg e TB24 00:00: at of bedtime. Medicin e Alfuzosin 2020-0 Yes [id number] 10mg Take 10 mg [facility] HCl 10 MG 2-16 9100 by mouth Colleg e TB24 00:00: at of bedtime. Medicin e Alfuzosin 2020-0 Yes [id number] 10mg Take 10 mg [facility] HCl 10 MG 2-16 9100 by mouth Colleg e TB24 00:00: at of 00 bedtime. Medicin e latanoprost 2020-0 Yes [facility] (XALATAN) 2-08 [place] 0.005 % 00:00: of ophthalmic 00 Medicin solution e latanoprost 2020-0 Yes [facility] (XALATAN) 2-08 [place] 0.005 % 00:00: of ophthalmic 00 Medicin solution e latanoprost 2020-0 Yes [facility] (XALATAN) 2-08 [place] 0.005 % 00:00: of ophthalmic 00 Medicin solution e latanoprost 2020-0 Yes [facility] (XALATAN) 2-08 [place] 0.005 % 00:00: of ophthalmic 00 Medicin solution e latanoprost 2020-0 Yes [facility] (XALATAN) 2-08 [place] 0.005 % 00:00: of ophthalmic 00 Medicin solution e latanoprost 2020-0 Yes [facility] (XALATAN) 2-08 [place] 0.005 % 00:00: of ophthalmic 00 Medicin [...] DAY lorazepam 0 Yes .5mg Take 1 [facility] (ATIVAN) 2-03 Tablet by Colleg e 0.5 MG 00:00: mouth of tablet 00 every 6 Medicin hours as e needed for Anxiety. lorazepam 0 Yes .5mg Take 1 [facility] (ATIVAN) 2-03 Tablet by Colleg e 0.5 MG 00:00: mouth of tablet 00 every 6 Medicin hours as e needed for Anxiety. lorazepam 0 2021- No .5mg Take 1 [facility] (ATIVAN) 2-03 04-15 Tablet by Colle ge 0.5 MG 00:00: 00:00 mouth of tablet 00 :00 every 6 Medicin hours as e needed for Anxiety. clopidogrel 2019- Yes 75mg Take 75 mg [facility] (PLAVIX) 75 2-18 by mouth [facility] MG Tablet 00:00: daily. of 00 Medicin e clopidogrel 2019- Yes 75mg Take 75 mg [facility] (PLAVIX) 75 2-18 by mouth [facility] MG Tablet 00:00: daily. of 00 Medicin e clopidogrel 2019-07 Yes 75mg Take 75 mg [facility] (PLAVIX) 75 2-18 by mouth [facility] MG Tablet 00:00: daily. of 00 Medicin e clopidogrel 2019-07- No 75mg Take 75 mg [facility] (PLAVIX) 75 2-18 05-24 by mouth Col [...] DAY e Amantadine 2019-07 Yes TAKE ONE [facility] HCl 100 MG 1-27 TABLET BY [facility] TABS 00:00: MOUTH of 00 TWICE A Medicin DAY e Amantadine 2019-07 Yes TAKE ONE [facility] HCl 100 MG 1-27 TABLET BY [facility] TABS 00:00: MOUTH of 00 TWICE A Medicin DAY e Amantadine 2019-07 Yes TAKE ONE [facility] HCl 100 MG 1-27 TABLET BY [facility] TABS 00:00: MOUTH of 00 TWICE A Medicin DAY e Amantadine 2019-07 Yes TAKE ONE [facility] HCl 100 MG 1-27 TABLET BY [facility] TABS 00:00: MOUTH of 00 TWICE A Medicin DAY e amiodarone Yes [facility] (PACERONE) 8-07 College 200 MG 00:00: of tablet 00 Medicin e amiodarone Yes [facility] (PACERONE) 8-07 College 200 MG 00:00: of tablet 00 Medicin e amiodarone 2020- No [facility] (PACERONE) 8-07 04-15 College 200 MG 00:00: 00:00 of tablet 00 :00 Medicin e Dabigatran 2020-0 Yes Take by Wolfe lauren Etexilate 3-17 mouth two Colle ge Mesylate 16:18: times of (PRADAXA) 48 daily. Medicin 150 MG CAPS e Mesalamine 2020-0 Yes Take by Wolfe lauren (LIALDA) 3-17 mouth. College 1.2 G TBEC 16:18: of 48 Medicin e Cholecalcif 2020-0 Yes 5000mg Take 5,000 [facility] kerline 3-17 mg by [place] (VITAMIN D 16:18: mouth of OR) 48 [...] 2.5 [facility] (NORVASC) 3-17 mg by [place] 2.5 MG 16:18: mouth of tablet 48 daily. Medicin e levothyroxi 2020-0 Yes 175ug Take 175 [facility] ne 3-17 mcg by [place] (SYNTHROID) 16:18: mouth of 175 MCG 48 daily. Medicin tablet e oxcarbazepi 2020-0 Yes 300mg Take 300 [facility] ne 3-17 mg by [place] (TRILEPTAL) 16:18: mouth two o f 300 MG 48 times Medicin tablet daily. e oxcarbazepi 2020-0 Yes 150mg Take 150 [facility] ne 3-17 mg by [place] (TRILEPTAL) 16:18: mouth two o f 150 MG 48 times Medicin tablet daily. e Tamsulosin 2020-0 Yes [id number] .4mg Take 0.4 [facility] HCl 0.4 MG 3-17 9100 mg by [place] CAPS 00:00: mouth at of 00 bedtime. Medicin e ciprofloxac 2020-0 Yes [id number] 500mg Take 1 Tab [facility] in (CIPRO) 3-17 by mouth Colle ge 500 MG 00:00: two times of tablet 00 daily. Medicin e Amantadine 2020-0 Yes TAKE ONE [facility] HCl 100 MG 3-16 TABLET BY [facility] TABS 00:00: MOUTH of 00 TWICE A Medicin DAY e Dabigatran 2020-0 Yes Take by Wolfe lauren Etexilate 2-25 mouth two Colle ge Mesylate 19:48: times of (PRADAXA) 18 daily. Medicin 150 MG CAPS e Mesalamine 2020-0 Yes Take by Wolfe lauren (LIALDA) 2-25 mouth. College 1.2 G TBEC 19:48: of 18 Medicin e Cholecalcif 2020-0 Yes 5000mg Take 5,000 [facility] kerline 2-25 mg by [place] (VITAMIN D 19:48: mouth of OR) 18 [...] 175 [place] ne 2-25 mcg by [place] (SYNTHROID) 19:48: mouth of 175 MCG 18 daily. Medicin tablet e oxcarbazepi 2020-0 Yes 300mg Take 300 [facility] ne 2-25 mg by [place] (TRILEPTAL) 19:48: mouth two o f 300 MG 18 times Medicin tablet daily. e oxcarbazepi 2020-0 Yes 150mg Take 150 [facility] ne 2-25 mg by [place] (TRILEPTAL) 19:48: mouth two o f 150 MG 18 times Medicin tablet daily. e furosemide 2020-0 2020- No 40mg Take 40 mg [facility] (LASIX) 40 2-25 02-25 by mouth [facility] MG tablet 19:48: 00:00 daily. of 18 :00 Medicin e levothyroxi 2020-0 2020- No 150ug Take 150 [facility] ne 2-25 02-25 mcg by [place] (SYNTHROID) 19:48: 00:00 mouth of 150 MCG 18 :00 daily. Medicin tablet e LATANOPROST 2019-0 2020- No Apply to [facility] OP 2-21 09-25 eye. [place] 19:48: 00:00 of 18 :00 Medicin e potassium 2020-0 2020- No 10meq Take 10 [facility] chloride 2-25 02-25 mEq by [place] (KDUR) 10 19:48: 00:00 mouth of MEQ [...] e Cholecalcif 2020-0 Yes 5000mg Take 5,000 [facility] kerline 1-27 mg by [place] (VITAMIN D 18:14: mouth of OR) 28 [...] 18:14: daily. of 28 Medicin e levothyroxi 2019-0 Yes 150ug Take 150 [facility] [place] ne 1-27 mcg by [place] (SYNTHROID) 18:14: mouth of 150 MCG 28 daily. Medicin tablet e Dabigatran Yes Take by Wolfe lauren Etexilate 08-23 mouth two Colle ge Mesylate 18:14: times of (PRADAXA) 28 daily. Medicin 150 MG CAPS e LATANOPROST Yes Apply to Aravind spangler OP 08-23 eye. College 18:14: of Medicin e potassium Yes 10meq Take 10 [facility] chloride 08-23 mEq by [place] (KDUR) 10 18:14: mouth of MEQ tablet 28 daily. Medicin e Mesalamine Yes Take by Wolfe lauren (LIALDA) 08-23 mouth. [place] 1.2 G TBEC 18:14: Medicin e methylPREDN 2018-07 Yes Take by Wolfe lauren ISolone - mouth as College (MEDROL 00:00: directed. of DOSECrowdtap) 4 00 Medicin MG tablet e methylPREDN 2018-07 2020- No Take by [facility] ISolone 1-15 09-21 mouth as College (MEDROL 00:00: 00:00 directed. of DOSECrowdtap) 4 00 :00 Medicin MG tablet e modafinil 2018-07 Yes TAKE ONE [facility] (PROVIGIL) 1-08 TABLET BY [facility] 200 MG 00:00: MOUTH of tablet 00 TWICE A Medicin DAY e modafinil 2018-07 2020- No TAKE ONE [facility] (PROVIGIL) 1-08 09-21 TABLET BY Col [...] Medicin DAY e Amantadine Yes TAKE ONE [facility] HCl 100 MG 3-25 TABLET BY [facility] TABS 00:00: MOUTH of 00 TWICE A Medicin DAY e Amantadine Yes TAKE ONE [facility] HCl 100 MG 3-25 TABLET BY [facility] TABS 00:00: MOUTH of 00 TWICE A Medicin DAY e Amantadine Yes TAKE ONE [facility] HCl 100 MG 3-25 TABLET BY [facility] TABS 00:00: MOUTH of 00 TWICE A Medicin DAY e furosemide Yes 40mg Take 40 mg [facility] (LASIX) 40 1-14 by mouth Colle ge MG tablet 20:27: daily. of 10 Medicin e levothyroxi Yes 150ug Take 150 [facility] ne 1-14 mcg by [place] (SYNTHROID) 20:27: mouth of 150 MCG 10 daily. Medicin tablet e Dabigatran Yes Take by Wolfe lauren Etexilate 1-14 mouth two Colle ge Mesylate 20:27: times of (PRADAXA) 10 daily. Medicin 150 MG CAPS e LATANOPROST Yes Apply to [facility] OP 1-14 eye. College 20:27: of 10 Medicin e potassium Yes 10meq Take 10 [facility] chloride 1-14 mEq by [place] (KDUR) 10 20:27: mouth of MEQ tablet 10 daily. Medicin e Mesalamine Yes Take by Wolfe lauren (LIALDA) 1-14 mouth. College 1.2 G TBEC 20:27: of 10 Medicin e Cholecalcif Yes 5000mg Take 5,000 [facility] kerline 1-14 mg by [place] (VITAMIN D 20:27: mouth of OR) 10 daily. Medicin e amiodarone Yes Inject [facility] (CORDARONE) 1-14 into the [facility] 50 mg/mL 20:27: vein. of injection 10 Medicin e Ocrelizumab 2018-0 Yes Inject [facility] (OCREVUS) 1-14 into the Colleg e 300 MG/10ML 20:27: vein once. of injection 10 Medicin e oxcarbazepi 2015-0 Yes [facility] ne 04-02 College (TRILEPTAL) 00:00: of 600 MG 00 Medicin tablet e oxcarbazepi 2015-0 Yes [facility] 04-02 College (TRILEPTAL) 00:00: of 600 MG 00 Medicin tablet e oxcarbazepi 2015-0 2020- No [facility] ne 04-02 College (TRILEPTAL) 00:00: 00:00 of 600 MG 00 :00 Medicin tablet e esomeprazol 2015-0 Yes [facility] e (NEXIUM) 8-17 College 40 MG 00:00: of capsule 00 Medicin e esomeprazol 2015-0 Yes [facility] e (NEXIUM) 8-17 College 40 MG 00:00: of capsule 00 Medicin e esomeprazol 2015-0 Yes [facility] e (NEXIUM) 8-17 College 40 MG 00:00: of capsule 00 Medicin e esomeprazol 2015-0 Yes [facility] e (NEXIUM) 8-17 College 40 MG 00:00: of capsule 00 Medicin e esomeprazol 2015-0 Yes [facility] e (NEXIUM) 8-17 College 40 MG 00:00: of capsule 00 Medicin e esomeprazol 2015-0 Yes [facility] e (NEXIUM) 8-17 College 40 MG 00:00: of capsule 00 Medicin e esomeprazol 2016-0 Yes [facility] e (NEXIUM) 8-17 College 40 MG 00:00: of capsule 00 Medicin e esomeprazol 2016-0 Yes [facility] e (NEXIUM) 8-17 College 40 MG 00:00: of capsule 00 Medicin e esomeprazol 2016-0 Yes [facility] e (NEXIUM) 8-17 College 40 MG 00:00: of capsule 00 Medicin e esomeprazol 2015-0 Yes [facility] e (NEXIUM) 8-17 College 40 MG 00:00: of capsule 00 Medicin e esomeprazol 2015-0 Yes [facility] e (NEXIUM) 8-17 College 40 MG 00:00: of capsule 00 Medicin e Vital Signs Vital Name Observation Time Observation Value Comments Source HEIGHT 2020-12-20 06:00:00 193 cm WEIGHT 2020-12-20 06:00:00 75.7 kg HEIGHT 2020-12-19 13:14:00 193 cm WEIGHT 2020-12-19 13:14:00 74.844 kg Systolic blood 2021-10-15 14:49:00 128 mm[Hg] [facility] Medicine Diastolic blood 2021-10-15 14:49:00 76 mm[Hg] [facility] Heart rate 2021-10-15 14:49:00 65 /min [facility] Respiratory rate 2021-10-15 14:49:00 16 /min [facility] Body height 2021-10-15 14:49:00 193 cm [facility] Body weight 2021-10-15 14:49:[facility] BMI 2021-10-15 14:49:00 19.45 kg/m2 [facility] Systolic blood 2021-04-16 15:06:00 96 mm[Hg] [facility] Diastolic blood 2021-04-16 15:06:00 63 mm[Hg] [facility] Medicine Heart rate 2021-04-16 15:06:00 69 /min [facility] ollege of Medicine Body height 2021-04-16 15:06:00 193 cm [facility] of [facility] Body weight 2021-04-16 15:06:00 74.39 kg [facility] BMI 2021-04-16 15:06:00 19.96 kg/m2 [facility] Medicine Systolic blood 2020-12-18 14:09:00 169 mm[Hg] [facility] Medicine Diastolic blood 2020-12-18 14:09:00 108 mm[Hg] [facility] Medicine Heart rate 2020-12-18 14:09:00 67 /min [facility] Medicine Body temperature 2020-12-18 14:09:00 36.28 [facility] Respiratory rate 2020-12-18 14:09:00 16 /min [facility] Body height 2020-12-18 14:09:00 193 cm [facility] Body weight 2020-12-18 14:09:00 75.841 kg [facility] of Medicine BMI 2020-12-18 14:09:00 20.35 kg/m2 [facility] Oxygen saturation in 2020-12-18 14:09:00 100 /min [facility] Arterial blood by [facility] Pulse oximetry Systolic blood 2020-11-09 15:14:00 99 mm[Hg] [facility] pressure Medicine Diastolic blood 2020-11-09 15:14:00 71 mm[Hg] [facility] Medicine Heart rate 2020-11-09 15:14:00 128 /min [facility] Medicine Body height 2020-11-09 15:14:00 193 cm [facility] Body weight 2020-11-09 15:14:00 76.204 kg [facility] BMI 2020-11-09 15:14:00 20.45 kg/m2 [facility] Medicine Systolic blood 2020-09-27 16:10:00 121 mm[Hg] [facility] pressure Medicine Diastolic blood 2020-09-27 16:10:00 80 mm[Hg] [facility] pressure Medicine Heart rate 2020-09-27 16:10:00 70 /min [facility] Medicine Body height 2020-09-27 16:10:00 193 cm [facility] Body weight 2020-09-27 16:10:00 83.915 kg [facility] Medicine BMI 2020-09-27 16:10:00 22.52 kg/m2 [facility] Medicine Systolic blood 2020-09-25 15:40:00 121 mm[Hg] [facility] pressure Medicine Diastolic blood 2020-09-25 15:40:00 85 mm[Hg] [facility] pressure Medicine Heart rate 2020-09-25 15:40:00 64 /min [facility] Body temperature 2020-09-25 15:40:00 36.22 [facility] Respiratory rate 2020-09-25 15:40:00 16 /min [facility] Body height 2020-09-25 15:40:00 193 cm [facility] Body weight 2020-09-25 15:40:00 83.008 kg [facility] BMI 2020-09-25 15:40:00 22.28 [facility] Oxygen saturation in 2020-09-25 15:40:00 100 /min [facility] blood by [facility] Pulse oximetry HEIGHT 2020-09-08 10:50:00 193 cm WEIGHT 2020-09-08 10:50:00 83.144 kg HEIGHT 2020-09-08 10:50:00 193 cm WEIGHT 2020-09-08 10:50:00 83.144 kg Systolic blood 2019-10-12 16:12:00 177 mm[Hg] [facility] pressure Medicine Diastolic blood 2019-10-12 16:12:00 107 mm[Hg] [facility] pressure Medicine Heart rate 2019-10-12 16:12:00 58 /min [facility] Medicine Body height 2019-10-12 16:12:00 193 cm [facility] Medicine Body weight 2019-10-12 16:12:00 83.915 kg [facility] BMI 2019-10-12 16:12:00 22.52 kg/m2 [facility] Medicine Systolic blood 2019-09-21 19:28:00 139 mm[Hg] [facility] of pressure Medicine Diastolic blood 2019-09-21 19:28:00 97 mm[Hg] [facility] of pressure Medicine Heart rate 2019-09-21 19:28:00 56 /min [facility] Medicine Body height 2019-09-21 19:28:00 193 cm [facility] Medicine Body weight 2019-09-21 19:28:00 82.555 kg [facility] C ollege of Medicine BMI 2019-09-21 19:28:00 22.15 kg/m2 [facility] Medicine Systolic blood 2019-08-23 18:15:00 125 mm[Hg] [facility] of pressure Medicine Diastolic blood 2019-08-23 18:15:00 86 mm[Hg] [facility] pressure Medicine Heart rate 2019-08-23 18:15:00 65 /min [facility] ollege [facility] Body temperature 2019-08-23 18:15:00 36.5 [facility]i [facility] Respiratory rate 2019-08-23 18:15:00 14 /min [facility] Body height 2019-08-23 18:15:00 193 cm [facility] weight 2019-08-23 18:15:00 83.915 kg [facility] BMI 2019-08-23 18:15:00 22.52 kg/m2 [facility] Oxygen saturation in 2019-08-23 18:15:00 99 /min [facility] Arterial blood by [facility] Pulse oximetry Systolic blood 2019-03-04 18:59:00 155 mm[Hg] [facility] pressure Medicine Diastolic blood 2019-03-04 18:59:00 96 mm[Hg] [facility] Medicine Heart rate 2019-03-04 18:59:00 63 /min [facility] Body height 2019-03-04 18:59:00 193 cm [facility] Body weight 2019-03-04 18:59:00 87.998 kg [facility] BMI 2019-03-04 18:59:00 23.61 kg/m2 [facility] Procedures This patient has no known procedures. Plan of Care Planned Activity Planned Date Details Comments Source Future Scheduled 2021-10-16 TETANUS SHOT (ADULT) [facility] Test 07:31:08 [code = TETANUS SHOT of Medi cine (ADULT)] Future Scheduled 2021-10-16 Hepatitis C screening [facility] Test 07:31:08 (procedure) [code = of Medic ine 493024530] Future Scheduled 2021-10-16 ZOSTER VACCINE (1 of [facility] Test 07:31:08 2) [code = ZOSTER of Medicin e VACCINE (1 of 2)] Future Scheduled 2021-10-16 Abdominal aortic [facility] Test 07:31:08 aneurysm screening of Medici ne (procedure) [code = 980199554] Future Scheduled 2021-10-16 Pneumococcal 65+ (1 [employer] Test 07:31:08 of 1 - PPSV23) [code of Medi cine = Pneumococcal 65+ (1 of 1 - PPSV23)] Future Scheduled 2021-10-16 Screening for [facility] Test 07:31:08 malignant neoplasm of of Med icine colon (procedure) [code = 641103604] Future Scheduled 2021-10-16 MEDICARE AWV [facility] Test 07:31:08 (Initial) [code = of Medicin e MEDICARE AWV (Initial)] Future Scheduled 2021-10-16 MEDICARE IPPE [facility] Test 07:31:08 (WELCOME TO MEDICARE) of Med icine [code = MEDICARE IPPE (WELCOME TO MEDICARE)] Future Scheduled 2021-10-16 COVID-19 Vaccine (3 - [employer] Test 07:31:08 Booster for Pfizer of Medici ne series) [code = COVID-19 Vaccine (3 - Booster for Pfizer series)] Future Scheduled 2021-10-16 FLU VACCINE > 6 [facility] C ollege Test 07:31:08 MONTHS [code = FLU of Medici ne VACCINE > 6 MONTHS] Future Scheduled 2021-10-16 FALL SCREEN [code = [employer] Test 07:31:08 FALL SCREEN] of Medicine Future Scheduled 2021-04-16 TETANUS SHOT (ADULT) [employer] Test 10:09:56 [code = TETANUS SHOT of Medi cine (ADULT)] Future Scheduled 2021-04-16 Hepatitis C screening [employer] Test 10:09:56 (procedure) [code = of Medic ine 277727241] Future Scheduled 2021-04-16 ZOSTER VACCINE (1 of [employer] Test 10:09:56 2) [code = ZOSTER of Medicin e VACCINE (1 of 2)] Future Scheduled 2021-04-16 Abdominal aortic [facility] Test 10:09:56 aneurysm screening of Medici ne (procedure) [code = 211641157] Future Scheduled 2021-04-16 PNEUMOVAX >=65 [facility] Test 10:09:56 (PPSV23) [code = of Medicine PNEUMOVAX >=65 (PPSV23)] Future Scheduled 2021-04-16 Screening for [facility] Test 10:09:56 malignant neoplasm of of Med icine colon (procedure) [code = 100374061] Future Scheduled 2021-04-16 FLU VACCINE > 6 [facility] C [facility]lege Test 10:09:56 MONTHS [code = FLU of Medici ne VACCINE > 6 MONTHS] Future Scheduled 2021-04-16 FALL SCREEN [code = [employer] Test 10:09:56 FALL SCREEN] of Medicine Future Scheduled 2021-04-16 TETANUS SHOT (ADULT) [employer] Test 10:09:56 [code = TETANUS SHOT of Medi cine (ADULT)] Future Scheduled 2021-04-16 Hepatitis C screening [employer] Test 10:09:56 (procedure) [code = of Medic ine 707025150] Future Scheduled 2021-04-16 ZOSTER VACCINE (1 of [employer] Test 10:09:56 2) [code = ZOSTER of Medicin e VACCINE (1 of 2)] Future Scheduled 2021-04-16 Abdominal aortic [facility] Test 10:09:56 aneurysm screening of Medici ne (procedure) [code = 912458827] Future Scheduled 2021-04-16 PNEUMOVAX >=65 [facility] Test 10:09:56 (PPSV23) [code = of Medicine PNEUMOVAX >=65 (PPSV23)] Future Scheduled 2021-04-16 Screening for [facility] Test 10:09:56 malignant neoplasm of of Med icine colon (procedure) [code = 159409604] Future Scheduled 2021-04-16 FLU VACCINE > 6 [facility] C [facility]lege Test 10:09:56 MONTHS [code = FLU of Medici ne VACCINE > 6 MONTHS] Future Scheduled 2021-04-16 FALL SCREEN [code = [employer] Test 10:09:56 FALL SCREEN] of Medicine Future Scheduled 2020-12-21 TETANUS SHOT (ADULT) [employer] Test 13:03:52 [code = TETANUS SHOT of Medi cine (ADULT)] Future Scheduled 2020-12-21 Hepatitis C screening [employer] Test 13:03:52 (procedure) [code = of Medic ine 114343633] Future Scheduled 2020-12-21 ZOSTER VACCINE (1 of [employer] Test 13:03:52 2) [code = ZOSTER of Medicin e VACCINE (1 of 2)] Future Scheduled 2020-12-21 Abdominal aortic [facility] Test 13:03:52 aneurysm screening of Medici ne (procedure) [code = 345588601] Future Scheduled 2020-12-21 PNEUMOVAX >=65 [facility] Test 13:03:52 (PPSV23) [code = of Medicine PNEUMOVAX >=65 (PPSV23)] Future Scheduled 2020-12-21 Screening for [facility] Test 13:03:52 malignant neoplasm of of Med icine colon (procedure) [code = 919663167] Future Scheduled 2020-12-21 FLU VACCINE > 6 [facility] C [facility]lege Test 13:03:52 MONTHS [code = FLU of Medici ne VACCINE > 6 MONTHS] Future Scheduled 2020-12-21 FALL SCREEN [code = [employer] Test 13:03:52 FALL SCREEN] of Medicine Future Scheduled TETANUS SHOT (ADULT) [employer] Test [code = TETANUS SHOT [...] SCREEN] of Medicine Future Scheduled PNEUMOVAX >=65 [facility] Test (PPSV23) [code = of Medicine PNEUMOVAX >=65 (PPSV23)] Future Scheduled PREVNAR >= 65 (PCV13) [employer] Test [code = PREVNAR >= 65 of Med icine (PCV13)] Future Scheduled COLON CANCER [facility] [employer] Test SCREENING: of Medicine COLONOSCOPY [code = COLON CANCER SCREENING: COLONOSCOPY] Future Scheduled FLU VACCINE > 6 [facility] C ollege Test MONTHS [code = FLU of Medici ne VACCINE > 6 MONTHS] Future Scheduled ABSOLUTE LYMPHOCYTE Ordered: [employer] Test COUNT [code = NOCPT] 09/21/2019 of Medi cine Future Scheduled COMPREHENSIVE Ordered: [facility] Test METABOLIC PANEL [code 09/21/2019 of Med icine = 38540-8] Future Scheduled IMMUNOGLOBULIN [facility] Test PROFILE [code = of Medicine 74524-6] Future Scheduled TETANUS SHOT (ADULT) [employer] Test [code = TETANUS SHOT [...] Med icine (PCV13)] Future Scheduled COLON CANCER [facility] Test SCREENING: of Medicine COLONOSCOPY [code = COLON CANCER SCREENING: COLONOSCOPY] Future Scheduled FLU VACCINE > 6 [employer] [facility] Test MONTHS [code = FLU of Medici ne VACCINE > 6 MONTHS] Future Scheduled URINALYSIS AUTO Ordered: [facility] C ollege Test W/SCOPE [code = 10/12/2019 of [facility] 34502-3] Future Scheduled TETANUS SHOT (ADULT) [employer] Test [code = TETANUS SHOT [...] Med icine (PCV13)] Future Scheduled COLON CANCER [facility] [employer] Test SCREENING: of Medicine COLONOSCOPY [code = COLON CANCER SCREENING: COLONOSCOPY] Future Scheduled FLU VACCINE > 6 [employer] [facility] Test MONTHS [code = FLU of Medici ne VACCINE > 6 MONTHS] Future Scheduled TETANUS SHOT (ADULT) [employer] Test [code = TETANUS SHOT of Medi cine (ADULT)] Future Scheduled HEPATITIS C SCREENING [employer] Test [code = HEPATITIS C of Medic ine SCREENING] Future Scheduled ZOSTER VACCINE (1 of [employer] Test 2) [code = ZOSTER of Medicin e VACCINE (1 of 2)] Future Scheduled AAA Screen [code = [employer] Test AAA Screen] of Medicine Future Scheduled PNEUMOVAX >=65 [facility] Test (PPSV23) [code = of Medicine PNEUMOVAX >=65 (PPSV23)] Future Scheduled COLON CANCER [facility] [employer] Test SCREENING: of Medicine COLONOSCOPY [code = COLON CANCER SCREENING: COLONOSCOPY] Future Scheduled MEDICARE AWV [employer] [facility] Test (Initial) [code = of Medicin e MEDICARE AWV (Initial)] Future Scheduled FLU VACCINE > 6 [employer] [facility] Test MONTHS [code = FLU of Medici ne VACCINE > 6 MONTHS] Future Scheduled FALL SCREEN [code = [employer] Test FALL SCREEN] of Medicine Future Scheduled ABSOLUTE LYMPHOCYTE Ordered: [employer] Test COUNT [code = NOCPT] 09/27/2020 of Medi cine Future Scheduled COMPREHENSIVE Ordered: [facility] Col [facility]ge Test METABOLIC PANEL [code 09/27/2020 of Med icine = 84327-8] Future Scheduled IMMUNOGLOBULIN Ordered: [facility] llege Test PROFILE [code = 09/27/2020 of Medicine 80595-3] Future Scheduled TETANUS SHOT (ADULT) [employer] Test [code = TETANUS SHOT of Medi cine (ADULT)] Future Scheduled HEPATITIS C SCREENING [facility] [employer] Test [code = HEPATITIS C of Medic ine SCREENING] Future Scheduled ZOSTER VACCINE (1 of [employer] Test 2) [code = ZOSTER of Medicin e VACCINE (1 of 2)] Future Scheduled AAA Screen [code = [employer] Test AAA Screen] of Medicine Future Scheduled PNEUMOVAX >=65 [facility] Test (PPSV23) [code = of Medicine PNEUMOVAX >=65 (PPSV23)] Future Scheduled COLON CANCER [facility] [employer] Test SCREENING: of Medicine COLONOSCOPY [code = COLON CANCER SCREENING: COLONOSCOPY] Future Scheduled MEDICARE AWV [facility] [employer] Test (Initial) [code = of Medicin e MEDICARE AWV (Initial)] Future Scheduled FLU VACCINE > 6 [employer] [facility] Test MONTHS [code = FLU of Medici ne VACCINE > 6 MONTHS] Future Scheduled FALL SCREEN [code = [employer] Test FALL SCREEN] of Medicine Future Scheduled TETANUS SHOT (ADULT) [employer] Test [code = TETANUS SHOT of Medi cine (ADULT)] Future Scheduled Hepatitis C screening [employer] Test (procedure) [code = of Medic ine 502087895] Future Scheduled ZOSTER VACCINE (1 of [employer] Test 2) [code = ZOSTER of Medicin e VACCINE (1 of 2)] Future Scheduled Abdominal aortic [facility] Test aneurysm screening of Medici ne (procedure) [code = 027306499] Future Scheduled PNEUMOVAX >=65 [facility] Test (PPSV23) [code = of Medicine PNEUMOVAX >=65 (PPSV23)] Future Scheduled Screening for [facility] Col [facility]ge Test malignant neoplasm of of Med icine colon (procedure) [code = 687882405] Future Scheduled FLU VACCINE > 6 [facility] C ollege Test MONTHS [code = FLU of Medici ne VACCINE > 6 MONTHS] Future Scheduled FALL SCREEN [code = [employer] Test FALL SCREEN] of Medicine Future Scheduled IMMUNOGLOBULIN Ordered: [facility] llege Test PROFILE [code = 03/04/2019 of [facility] 18299-1] Future Scheduled MEDICARE AWV [code = [employer] Test MEDICARE AWV] of Medicine Future Scheduled TETANUS SHOT (ADULT) [employer] Test [code = TETANUS SHOT of Medi cine (ADULT)] Future Scheduled HEPATITIS C SCREENING [employer] Test [code = HEPATITIS C of Medic ine SCREENING] Future Scheduled AAA Screen [code = [facility] Test AAA Screen] of Medicine Future Scheduled PNEUMOVAX >=65 [facility] Co [facility]lege Test (PPSV23) [code = of Medicine PNEUMOVAX >=65 (PPSV23)] Future Scheduled PREVNAR >= 65 (PCV13) [employer] Test [code = PREVNAR >= 65 of Med icine (PCV13)] Future Scheduled COLON CANCER [facility] [employer] Test SCREENING: of Medicine COLONOSCOPY [code = COLON CANCER SCREENING: COLONOSCOPY] Future Scheduled FLU VACCINE > 6 [facility] C ollege Test MONTHS [code = FLU of Medici ne VACCINE > 6 MONTHS] Future Scheduled FALL SCREEN [code = [employer] Test FALL SCREEN] of Medicine Future Scheduled CULTURE, 2 Occurrences [facility] Col [facility]ge Test URINE/SENSITIVITY ON starting of Medi cine ALL [code = 60711-4] 10/12/2019 until 10/11/2020 Future Scheduled US RENAL BILATERAL 1 Occurrences [employer] Test [code = 08004] starting of Medicine 10/12/2019 until 10/11/2020 Future Scheduled VIDEO URODYNAMICS [address] [facility] Test [code = 43933] starting of Medicine 10/12/2019 until 10/11/2020 Encounters Start End Encounter Admission Attending Care Care Encounter Source Date/Time Date/Time Type Type Clinicians Facility Department ID 2021-10-04 Outpatient [facility] [id number] Common 14:22:01 [facility] 2021-08-22 Outpatient [facility] Common 14:32:14 [facility] 2021-05-05 Outpatient [facility] Surgery [id number] SLE 19:55:29 , [facility] 2021-05-05 [facility] [id number] SLE 03:19:02 , [facility] 2021-12-03 2021-12-03 Outpatient TODD CHANDRAKANT [facility] [id number] [place] 00:00:00 00:00:00 315 Method i 2021-11-29 2021-11-29 Outpatient TODDCHANDRAKANT [facility] [id number] [place] 00:00:00 00:00:00 791 Method i 2021-10-25 2021-10-25 Outpatient [facility] [id number] [facility] 07:29:15 23:59:00 Ilan 2021-10-15 2021-10-15 Office PHONG Lim [id number] [facility] 10:30:00 11:30:50 Visit Polina Baptiste AMBULATOR 350.1.13.21 College Y 0.2.7.2.686 of [id number] Medi geno 830 e 2021-10-04 2021-10-04 Outpatient TODD CHANDRAKANT [facility] [id number] [place] 00:00:00 00:00:[address] 2021-10-03 2021-10-03 Outpatient TODD CHANDRAKANT [facility] [id number] [place] 00:00:00 00:00:[address] 2021-09-21 2021-09-21 Outpatient CHANDRAKANT BROOKS [facility] [id number] [place] 00:00:00 00:00:00 532 Method i 2021-09-18 2021-09-18 Outpatient BHARGAVI, [facility] [id number] [place] 00:00:00 00:00:00 JASON 244 Method i 2021-07-03 2021-07-03 Outpatient LA JOLLA, [facility] [id number] [place] 00:00:00 00:00:00 SP 800 Method i 2021-04-26 2021-04-26 Outpatient [facility] [id number] [facility] 07:28:23 23:59:00 [place] of Medicin e 2021-04-16 2021-04-16 Office Carina [facility] 1.2.840.114 [id number] [facility] 09:55:21 10:48:40 Visit Polina Baptiste AMBULATOR 350.1.13.21 College Y 0.2.7.2.686 of [id number] Medi geno 830 e 2021-04-04 2021-04-04 Outpatient LA JOLLA, [facility] [id number] [place] 00:00:00 00:00:00 SP 780 Method i 2021-03-08 2021-03-08 Outpatient LA JOLLA, [facility] [id number] [place] 00:00:00 00:00:00 SP 152 Method i 2021-02-22 2021-02-22 Outpatient [facility] [id number] [facility] 00:00:00 00:00:00 2021-02-06 2021-02-06 Outpatient BHARGAVI, [facility] [id number] [place] 00:00:00 00:00:00 JASON 037 Method i 2021-02-06 2021-02-06 Outpatient LA JOLLA, [facility] [id number] [place] 00:00:00 00:00:00 SP 270 Method i 2021-01-31 2021-01-31 Outpatient LA JOLLA, [facility] [id number] [place] 00:00:00 00:00:00 SP 001 Method i 2021-01-31 2021-01-31 Outpatient LA JOLLA, [facility] [id number] 269 [place] 00:00:00 00:00:00 SP 544 Method i 2021-01-18 2021-01-18 Outpatient EDD [facility] [id number] [place] 00:00:00 00:00:00 SP 899 Method i 2021-01-10 2021-01-10 Outpatient EDD [facility] [id number] 269 [place] 00:00:00 00:00:00 SP 692 Method i 2020-12-28 2020-12-28 Outpatient CHANDRAKANT BROOKS [facility] [id number] [place] 00:00:00 00:00:00 004 Method i 2020-12-28 2020-12-28 Outpatient EDD [facility] [id number] [place] 00:00:00 00:00:00 SP 011 Method i 2020-12-19 2020-12-19 Outpatient STEPHENIE SLE SLE [id number] SLE 00:00:00 00:00:00 2020-12-18 2020-12-18 Office Ayaka [facility] 1.2.840.114 [id number] [facility] 08:49:46 14:46:06 Visit Lee AMBULATOR 350.1.13.21 College Y 0.2.7.2.686 [id number] Medi geno 300 e 2020-12-18 2020-12-18 Outpatient EDD [facility] [id number] [place] 00:00:00 00:00:00 SP 763 Method i 2020-12-15 2020-12-15 Outpatient STEPHENIE [facility] [id number] [facility] 00:00:00 00:00:00 2020-12-15 2020-12-15 Outpatient STEPHENIE SLE SLE [id number] [facility] 00:00:00 00:00:00 2020-11-13 2020-11-13 Outpatient CARINA SLE SLE [id number] [facility] 00:00:00 00:00:00 POLINA 2020-11-13 2020-11-13 Outpatient STEPHENIE LIM [facility] [id number] [facility] 00:00:00 00:00:00 POLINA 2020-11-09 2020-11-09 Office PHONG Lim 1.2.840.[id number] [place] [address] 10:07:36 16:15:46 Visit Polina Baptiste AMBULATOR 350.1.13.21 College Y 0.2.7.2.686 [id number] [facility] geno 830 e 2020-10-31 2020-11-03 Inpatient BRET, [facility] [id number] [place] 00:00:00 00:00:00 WARREN 654 Method i 2020-10-18 2020-10-18 Outpatient BHARGAVI, [facility] [id number] [place] 00:00:00 00:00:00 JASON 806 Method i 2020-10-13 2020-10-13 Outpatient BHARGAVI, [facility] [id number] [place] 00:00:00 00:00:00 JASON 333 Method i 2020-10-13 2020-10-13 Outpatient BHARGAVI, [facility] [id number] [place] 00:00:00 00:00:00 JSAON 716 Method i 2020-10-06 2020-10-06 Laboratory Lab, [facility] Fam Pob I [facility] 1.2. 840.114 [id number] Univers 14:30:14 14:50:14 Only Dev [facility] 350.1.13.10 ity [facility] 4.2.7.2.686 Lino as Professio [id number] [address] Office [address] 2020-10-06 2020-10-06 Laboratory Lab, [facility] 1.2.840.114 [id number] 14:30:14 14:50:14 Only Fam Pob I Health 350.1.13.10 [place] 4.2.7.2.686 Professio [id number] [place] [id number] [address] 2020-10-06 2020-10-06 Outpatient R LEONIE, [facility] [id number] [facility] 14:40:00 14:40:00 SANJUANITA clark [facility] 2020-10-06 2020-10-06 Letter Doctor SAL 1.2.840.114 [id number] 00:00:00 00:00:00 (Out) Unassigned, NISHANT 350.1.13.10 [place] [facility] 4.2.7.2.686 [id number] [facility] 2020-10-06 2020-10-06 Letter Doctor DORON 1.2.840.114 [id number] [facility] 00:00:00 00:00:00 (Out) Unassigned, NISHANT 350.1.13.10 [facility] [place] [facility] 4.2.7.2.686 Lino as [id number] [facility] [address] 2020-10-06 2020-10-06 Letter Doctor SAL 1.2.840.114 [id number] 00:00:00 00:00:00 (Out) Unassigned, NISHANT 350.1.13.10 [place] [facility] 4.2.7.2.686 [id number] [facility] 2020-10-06 2020-10-06 Letter Doctor DORON 1.2.840.114 [id number] [facility] 00:00:00 00:00:00 (Out) Unassigned, NISHANT 350.1.13.10 [facility] [place] [facility] 4.2.7.2.686 Lino as [id number] [address] 2020-10-05 2020-10-05 Outpatient [facility] [id number] [facility] 00:00:00 00:00:00 2020-10-05 2020-10-05 Outpatient ELAV KHOURY [facility] [id number] [place] 00:00:00 00:00:00 [facility] 2020-09-27 2020-09-27 Office PHONG Lim 1.2.840.114 [id number] [facility] 09:48:17 11:45:41 Visit Polina Baptiste AMBULATOR 350.1.13.21 College Y 0.2.7.2.686 of [id number] [facility] geno 830 e 2020-09-25 2020-09-25 Office Ayaka [facility] 1.2.840.114 [id number] [facility] 08:52:56 11:06:52 Visit Lee AMBULATOR 350.1.13.21 College Y 0.2.7.2.686 of [id number] [facility] geno 300 e 2020-09-23 2020-09-23 Outpatient GUSTAVO [facility] [id number] [place] 00:00:00 00:00:00 TANNER Perdomo3 [facility] 2020-09-13 2020-09-13 Outpatient CARINA, SLE [facility] [id number] [facility] 00:00:00 00:00:00 POLINA 2020-09-13 2020-09-13 Outpatient EL CARINA, [facility] [id number] [facility] 00:00:00 00:00:00 POLINA 2020-09-08 2020-09-08 Outpatient EL SLE SLE [id number] [facility] 00:00:00 00:00:00 2020-09-02 2020-09-02 Outpatient ASKED, NO [facility] [id number] [place] 00:00:00 00:00:[address] 2020-08-08 2020-08-08 Outpatient BURK, [facility] [id number] [place] 00:00:00 00:00:00 JASON [address] 2020-07-13 2020-07-14 Outpatient BURK, [facility] [id number] [place] 00:00:00 00:00:00 JASON [address] 2020-07-10 2020-07-10 Outpatient BURK, [facility] [id number] [place] 00:00:00 00:00:00 JASON [address] 2020-07-04 2020-07-04 Outpatient BURK, [facility] [id number] 122 [place] 00:00:00 00:00:00 JASON [address] 2020-06-27 2020-06-27 Outpatient BURK, [facility] [id number] 112 [place] 00:00:00 00:00:00 JASON [address] 2020-06-26 2020-06-26 Outpatient BURK, [facility] [id number] 112 [place] 00:00:00 00:00:00 JASON [address] 2020-06-20 2020-06-20 Outpatient BURK, [facility] [id number] [place] 00:00:00 00:00:00 JASON [address] 2020-04-25 2020-04-25 Outpatient BURK, [facility] [id number] [place] 00:00:00 00:00:00 JASON [address] 2020-03-07 2020-03-07 Outpatient LA JOLLA, [facility] [id number] [place] 00:00:00 00:00:00 SP [address] 2019-10-12 2019-10-12 Office PHONG Valdez 1.2.840.114 [id number] [facility] 09:55:07 11:22:50 Visit Tanner AMBULATOR 350.1.13.21 College P Y 0.2.7.2.686 of [id number] Medi geno 300 e 2019-09-21 2019-09-21 Office PHONG Lim 1.2.840.114 [id number] [facility] 13:24:19 14:41:19 Visit Polina Baptiste AMBULATOR 350.1.13.21 College Y 0.2.7.2.686 of [id number] Medi geno 830 e 2019-08-23 2019-08-23 Office Ayaka DARLING 1.2.840.114 [id number] [facility] 11:42:57 14:11:07 Visit Lee AMBULATOR 350.1.13.21 College Y 0.2.7.2.686 of [id number] Medi geno 300 e 2019-06-08 2019-06-08 Outpatient [facility] [id number] [address] [place] [address] 00:00:00 00:00:00 JASON [address] 2019-03-04 2019-03-04 Office PHONG Lim 1.2.840.114 [id number] [facility] 13:15:29 14:58:57 Visit Polina Baptiste AMBULATOR 350.1.13.21 College Y 0.2.7.2.686 of [id number] Medi geno 830 e Results Test Description Test Time Test Comments Results Result Comments Source SARS-CoV-2 (COVID-19) RNA [Presence] in Respiratory sp ecimen by 2021-11-29 20:47:05 NETTE with probe detection Test Item Value Reference Range Interpretation Comme nts SARS-CoV-2 (COVID-19) RNA [Presence] in Respiratory specimen by Not detected NETTE with probe detection (test code = 56058-4) Whether patient is employed in a healthcare setting (test code = Un known 03468-2) Whether the patient has symptoms related to condition of interest U nknown (test code = 73009-7) Whether the patient was hospitalized for condition of interest Unkn own (test code = 61489-9) Whether the patient was admitted to intensive care unit (ICU) for U nknown condition of interest (test code = 04892-5) Whether patient resides in a congregate care setting (test code = U nknown 31166-6) status (test code = 11184-3) Unknown Date and time of symptom onset (test code = 65006-5) Unknown SARS-CoV-2 (COVID-19) RNA [Presence] in Respiratory specimen by NETTE with probe [id number] 18:28:56 Test Item Value Reference Range Interpretation Comments SARS-CoV-2 (COVID-19) RNA Not detected [Presence] in Respiratory specimen by NETTE with probe detection (test code = 47500-6) Whether patient is employed in a Unknown healthcare setting (test code = 92691-0) Whether the patient has symptoms Unknown related to condition of interest (test code = 81204-1) Whether the patient was Unknown hospitalized for condition of interest (test code = 74601-0) Whether the patient was admitted Unknown to intensive care unit (ICU) for condition of interest (test code = 15803-2) Whether patient resides in a Unknown congregate care setting (test code = 92035-2) status (test code = Unknown 39566-4) Date and time of symptom onset Unknown (test code = 88105-9) SARS-CoV-2 (COVID-19) RNA [Presence] in Respiratory specimen by NETTE with probe [id number] 16:54:02 Test Item Value Reference Range Interpretation Comments SARS coronavirus RNA [Presence] Not detected in Isolate by NETTE with probe detection (test code = 62668-7) Whether patient is employed in a Unknown healthcare setting (test code = 09388-2) Whether the patient has symptoms Unknown related to condition of interest (test code = 55443-7) Whether the patient was Unknown hospitalized for condition of interest (test code = 85422-3) Whether the patient was admitted Unknown to intensive care unit (ICU) for condition of interest (test code = 88012-5) Whether patient resides in a Unknown congregate care setting (test code = 36096-4) status (test code = Unknown 08845-9) Date and time of symptom onset Unknown (test code = 36511-0) SARS-CoV-2 (COVID-19) RNA [Presence] in Respiratory specimen by NETTE with probe [id number] 16:54:02 Test Item Value Reference Range Interpretation Comments SARS-CoV-2 (COVID-19) RNA Not detected [Presence] in Respiratory specimen by NETTE with probe detection (test code = 21250-3) Whether patient is employed in a Unknown healthcare setting (test code = 61011-2) Whether the patient has symptoms Unknown related to condition of interest (test code = 11949-1) Whether the patient was Unknown hospitalized for condition of interest (test code = 40893-9) Whether the patient was admitted Unknown to intensive care unit (ICU) for condition of interest (test code = 26819-8) Whether patient resides in a Unknown congregate care setting (test code = 58931-6) status (test code = Unknown 29668-3) Date and time of symptom onset Unknown (test code = 18576-0) SARS-CoV-2 (COVID-19) RNA [Presence] in Respiratory specimen by NETTE with probe [id number] 21:45:50 Test Item Value Reference Range Interpretation Comments SARS-CoV-2 (COVID-19) RNA Not detected Not-Detected [Presence] in Respiratory specimen by NETTE with probe detection (test code = 68792-4) Whether patient is employed in a healthcare setting (test code = 02012-8) Whether the patient has symptoms related to condition of interest (test code = 82861-3) Patient was hospitalized because of this condition (test code = 71058-4) Whether the patient was admitted to intensive care unit (ICU) for condition of interest (test code = 40210-2) Whether patient resides in a congregate care setting (test code = 52615-2) FL, FLUORO, NON-SPECIFIC, UP TO 1 [id number] 09:10:00Reason for exam:- >RADIOFREQUENCY ABL[facility] 1945 Sex: MFluoroscopic unit utilized for a procedure performed in the OR. No interpretation was requested. Refer to the operative report for findings. Refer to PACS for patient radiation dose information.SARS-COV2/RT-PCR ([facility])2020-12-16 07:16:00 Test Item Value Reference Range Interpretation Comments SARS-COV2/RT-PCR (test Negative Not Detected, Negative, code = 7072624) See external report for linked test SARS-COV-2 PERFORMING LAB [facility] GENA (test code = 5520088) Negative result for this test determines that [...] the Staples SARS-CoV-2 assay.Fact Sheet for Healthcare Providers:https://www.FarmLink.staples/stephanie/ YX_IFRC-PjE-1_NKW_Xnfx_Lzvtp_92-989846.pdfFact Sheet for Healthcare Patients:https://www.FarmLink.GroupCard penny/stephanie/QB_KLWO-VbK-1_Dqoqmot_Mqmt_Stwwf_BK_27-410136D3.pdfPerforming Laboratory:[facility] [place] [address] URINALYSIS [id number] 15:50:00 Test Item Value Reference Range Interpretation Comments RBC UA (BEAKER) (test code = 519) 12 /HPF WBC UA (BEAKER) (test code = 520) 5 /HPF MUCUS (BEAKER) (test code = 1574) Many SQUAMOUS EPITHELIAL (BEAKER) (test 1 /HPF code = 516) HYALINE CASTS (BEAKER) (test code = 6 /LPF 514) CALCIUM OXALATE CRYSTALS (BEAKER) Few (test code = 518) Enrollment Management Manager ID - techURINALYSIS WITH MICROSCOPIC IF [id number] 15:30:00 Test Item Value Reference Range Interpretation [...] = 463) SOURCE(BEAKER) (test code = 2795) Enrollment Management Manager ID - [auto]BASIC METABOLIC [id number] 15:22:00 Test Item Value Reference Range Interpretation [...] S NOT APPLICABLE FOR DIALYSIS PATIEN TS. Enrollment Management Manager ID - [id number] 15:07:00 Test Item Value Reference Range Interpretation Comments PARTIAL THROMBOPLASTIN TIME 32.0 seconds 22.5-36.0 (BEAKER) (test code = 760) PROTHROMBIN TIME/[id number] 15:06:00 Test Item Value Reference Range Interpretation Comments PROTIME (BEAKER) 13.9 seconds 11.9-14.2 (test code = 759) INR (BEAKER) (test 1.11 See_Comment [Automat ed message] code = 370) The system Sekal AS generated this result transmitted ref erence range: [...] (test code = 2801) RAD, CHEST, 2 [id number] 14:53:00Reason for exam:->preop testing [facility] 1945 Sex: MFINAL REPORT HISTORY: Preoperative examination COMPARISON: Chest r adiographs of 09/08/2020 and 11/12/2015 FINDINGS: Mild scarring in the right upper lobe. No pleural effusions or pneumothorax. The heart shadow is normal in size. The thoracic aorta is tortuous, unchanged. Degenerative changes are present in the spine. IMPRESSION: No evidence of acute cardiopulmonary disease. Signed: Yumiko Sosaeport Verified Date/Time: 12/15/2020 14:53:22 Reading Location: [facility] Radiology Reading Room PS-EvP-3 (COVID-19) RNA [Presence] in Respiratory specimen by NETTE with probe [id number] 15:18:59 Test Item Value Reference Range Interpretation Comments SARS-CoV-2 (COVID-19) RNA Not detected Not-Detected [Presence] in Respiratory specimen by NETTE with probe detection (test code = 07162-5) SARS-COV2/RT-PCR ([facility])2020-09-08 17:47:00 Test Item Value Reference Range Interpretation Comments SARS-COV2/RT-PCR (test Negative Not Detected, Negative, code = 5639842) See external report for linked test SARS-COV-2 PERFORMING LAB [facility] GENA (test code = 3482340) Negative result for this test determines that [...] 564(g) of the Act.Fact Sheet for Healthcare Providers:https://www.VoloMetrix.Dexin Interactive/sites/default/files/product/documents/Fact_Shee n_AG_Tireurcqi_Evey_BRLM-AsM-4.pdfFact Sheet for Healthcare Patients:https://www.VoloMetrix.Dexin Interactive/sites/default/files/product/ documents/Wziy_Ngaoz_Apqskemh_Hdqe_IGYY-CaN-7.pdfPerforming Laboratory:[facility], [place] [address]LPU, CHEST, 2 VIEWS 2020-09-08 12:56:00Reason for exam:->Trigeminal neuralgia [facility] : 1945 Sex: MFINAL REPORT [...] achest CT is recommended. Signed: Zenon Li MDRepaneta Verified Date/Time: 09/08/2020 12:56:25 E lectronically signed by: ZENON LI MD on 09/08/2020 12:56 PMPROTHROMBIN TIME/[id number] 11:09:00 Test Item Value Reference Range Interpretation Comments PROTIME (EVELYNAKER) 14.1 seconds 11.9-14.2 (test code = 759) INR (BEAKER) (test 1.12 See_Comment [Automat ed message] code = 370) The system Sekal AS generated this result transmitted ref erence range: <=5.90. The reference range was not used to int erpret this result as normal/abnormal . Effective 12/23/2018: PT Reference Range ChangeNew: 11.9-14.2 Previous: 11.7- 14.7RECOMMENDED COUMADIN/WARFARIN INR THERAPY RANGESSTANDARD DOSE: 2.0-3.0 Includes: PROPHYLAXIS for venous thrombosis, systemic embolization; TREATMENT for venous thrombosis and/or pulmonary embolus.HIGH RISK: Target INR is2.5-3.5 for patients wiht mechanical heart valves.[id number] 11:09:00 Test Item Value Reference Range Interpretation Comments PARTIAL THROMBOPLASTIN TIME 25.8 seconds 22.5-36.0 (BEAKER) (test code = 760) BASIC METABOLIC [id number] 11:07:00 Test Item Value Reference Range Interpretation [...] S NOT APPLICABLE FOR DIALYSIS PATIEN TS. Enrollment Management Manager ID - PIAYA LCBC W/PLT COUNT & AUTO [id number] 10:57:00 Test Item Value Reference Range Interpretation [...] in Respiratory specimen by NETTE with probe [id number] 20:54:07 Test Item Value Reference Range Interpretation Comments SARS-CoV-2 (COVID-19) RNA Not detected Not-Detected [Presence] in Respiratory specimen by NETTE with probe detection (test code = 22251-1) FL, FLUORO, NON-SPECIFIC, UP TO 1 [id number] 09:54:00Reason for exam:- >RADIOFREQUENCY ABLATION OF TRIGEMINAL NERVEFINAL REPORT A fluoroscopic unit was utilized for a procedure performed in the operating room. No interpretation was requested. Please refer to the operative report regarding findings. Please refer to PACS for patient radiation dose information. Signed: Ace Longo MDReport Verified Date/Time: 08/31/2019 09:54:29 Reading Location: [facility] Radiology Reading Room BASIC METABOLIC [id number] 07:46:00 Test Item Value Reference Range Interpretation [...] S NOT APPLICABLE FOR DIALYSIS PATIEN TS. Enrollment Management Manager ID - ZORAIDA [id number] 07:13:00 Test Item Value Reference Range Interpretation Comments PARTIAL THROMBOPLASTIN TIME 33.7 seconds 22.5-36.0 (BEAKER) (test code = 760) PROTHROMBIN TIME/[id number] 07:12:00 Test Item Value Reference Range Interpretation [...] mechanical heart valves.CBC W/PLT COUNT & AUTO [id number] 07:06:00 Test Item Value Reference Range Interpretation [...] MR, SPINE, CERVICAL, WITHOUT / WITH IV [id number] 11:05:00FINAL REPORT Exam: Cervical spine MRI without with IV contrastHistory: 73-year-old male with multiple sclerosisComparison studies: Cervical spine MRI 03/26/2018. Technique:Precontrast sagittal T1, T2 and inversion recovery, axial T1 and T2 cervical and thoracic. Postcontrast axial and sagittal J9Nmqgpptipqc contrast: 9 cc of Gadavist. Findings: Several pulse sequences are somewhat limited by artifacts related to patient motion. Spinal Cord: Normal in size and signal from the foramen magnum through T1. T2 lesion load: No gross new lesions. Multiple scattered demyelinating lesions. Wheel Aligner lesions are grossly unchanged and described as [...] Date/Time: 02/16/2019 11:05:03 Reading Location: [facility] Reading Room [address] [place] [address] [facility] signed by: Yumiko Abad on 02/16/2019 11:05 AMMR, BRAIN, WITHOUT / WITH IV [id number] 10:50:00FINAL REPORT Exam: Brain MRI without with [...] brain MRI of 01/24/2018. Signed: Yumiko Abad Verified Date/Time: 02/16/2019 10:50:04 Reading Location: [facility] Reading Room [address] [place] [address] POCT-CREATININE 2019-02-15 10:10:00 Test Item Value Reference Range Interpretation Comments POC-CREATININE 1.2 mg/dL 0.6-1.[address] [facility] 7[address] ([facility]) (test VIKI BLD G A code = 1859) [facility] 7703 0 POC-EGFR 60 mL/min/1.73M2 (BEAKER) (test code = 1860) [place], CUSTOMER RELATIONS ASSISTANT IN OR/30 MINUTE [id number] 13:40:00Reason for exam:- >Trigeminal NeuralgiaFINAL REPORT Fluoroscopy 5 views intraoperative 07/17/2018 1:37 PM CLINICAL HISTORY: Instrument localization COMPARISON: None available IMPRESSION: Please correlate imaging report findings with the procedure note prepared by Dr. Duran, as an intra-procedure imaging consultation was not requested. Reported fluoroscopy time: 49.4 seconds. Signed: Christopher Sarkar Verified Date/Time: 07/17/2018 13:40:25 Reading Location: [facility] Radiology Reading Room
[2021-12-06] MEDS ORDERED: TETANUS & DIPHTHERIA TOX,ADULT 0.5 ML VIAL ONE (08:10)
--- NOTE | 2021-12-06 08:37 | RAD REPORT ---
EXAM DESCRIPTION: CT - CTHCSPWOC - 12/06/2021 8:21 am CLINICAL HISTORY: fall COMPARISON: Brain W/Wo Cont dated 08/13/2021; MRA Head Wo Cont dated 08/13/2021; CTANGIO CHEST FOR PE dated 07/22/2006 TECHNIQUE: Axial 5 mm thick images of the head were obtained. Axial 2 mm thick images of the cervical spine were obtained with sagittal and coronal reconstruction images generated and reviewed. All CT scans are performed using dose optimization technique as appropriate and may include automated exposure control or mA/KV adjustment according to patient size. FINDINGS: CT HEAD WITHOUT CONTRAST: No acute hemorrhage, hydrocephalus or extra-axial collection is identified.Remote bilateral taylor ra diata and basal ganglia lacunar infarcts. Polypoid thickening in the left posterior ethmoid air cells the nasal passage. The paranasal sinuses and mastoids are clear.The calvarium is intact. CT CERVICAL SPINE WITHOUT CONTRAST: No fracture. Trace anterolisthesis of C5 on C6 and retrolisthesis of C6 on C7 which is likely related to underlying degenerative changes.Mild cervical spondylosis. No high-grade canal stenosis identifie d.No prevertebral soft tissues swelling is identified. Partially imaged pulmonary nodules within the lung apices. There is a nodule in the left lung apex which is included on the most inferior slice and measures 8 millimeters. This has a slightly spiculated appearance. IMPRESSION: No acute intracranial or cervical spine findings. Pulmonary nodules, one of which in the left upper lung is incompletely imaged but seems spiculated an d slightly different than the other visualized nodules. Recommend chest CT which need not be emergent . Given the multiplicity of nodules, this is likely secondary to a benign process however there are n o available comparisons to confirm.
[2021-12-06] MEDS ORDERED: LIDOCAINE 1% W/EPI 1:100,000 MDV 20 ML VIAL ONE (09:37)
--- NOTE | 2021-12-06 09:57 | EDPHYS ---
Physician Documentation [facility] Name: Terrance Monroy Age: 76 yrs Sex: Male : 1945 Arrival Date: 12/06/2021 Time: 07:29 Bed 6 Private MD: Jyothi Mccollum C ED Physician Toney Gooden HPI: 12/06 08:02 This 76 yrs old Male presents to ER via Ambulatory with complaints of Fall Injury. ms3 08:02 Details of fall: The patient fell from an upright position, while standing. Onset: The ms3 symptoms/episode began/occurred this morning. Associated injuries: The patient sustained injury to the head, laceration, swelling. Severity of symptoms: At their worst the symptoms were mild, this morning. Historical: - Allergies: 07:53 No Known Allergies; ss - PMHx: 07:53 Atrial Fib; atrial flutter; back spasms; back surgery; Cerebrovascular accident; High ss Cholesterol; Hypertension; Hypothyroidism; MS; TMJ; Trigeminal nueralgia; ulcerative colitis; - Immunization history:: Client reports receiving the 2nd dose of the Covid vaccine. - Social history:: Smoking status: Patient denies any tobacco usage or history of. ROS: 08:02 Constitutional: Negative for fever, and chills. ENT: Negative for injury, pain, and ms3 discharge, Neck: Negative for injury, pain, and swelling, Cardiovascular: Negative for chest pain, and palpitations. Respiratory: Negative for shortness of breath, cough, wheezing, and pleuritic chest pain, Abdomen/GI: Negative for abdominal pain, nausea, vomiting, diarrhea, and constipation, MS/Extremity: Negative for injury and deformity. 08:02 Skin: Positive for laceration(s). 08:02 All other systems are negative. Exam: 08:02 Constitutional: This is a well developed, well nourished patient who is awake, alert, ms3 and in no acute distress. Neck: Trachea midline, no cervical lymphadenopathy. Supple, full range of motion without nuchal rigidity, or vertebral point tenderness. No Meningismus. Chest/axilla: Normal chest wall appearance and motion. Nontender with no deformity. Cardiovascular: Regular rate and rhythm with a normal S1 and S2. No gallops, murmurs, or rubs. Normal PMI, no JVD. No pulse deficits. Respiratory: Lungs have equal breath sounds bilaterally, clear to auscultation and percussion. No rales, rhonchi or wheezes noted. No increased work of breathing, no retractions or nasal flaring. Abdomen/GI: Soft, non-tender, with normal bowel sounds. No distension or tympany. No guarding or rebound. No evidence of tenderness throughout. 08:02 Head/face: Noted is abrasion(s), a laceration(s), that is jagged, 3 cm(s). 08:02 Skin: injury, abrasion(s), moderate sized abrasion noted, of the right forearm. Vital Signs: 07:47 BP 137 / 78; Pulse 52; Resp 16; Pulse Ox 100% on R/A; Weight 95.71 kg; Height 5 ft. 9 ss in. (175.26 cm); Pain 5/10; 08:00 BP 170 / 89; Pulse 59; Resp 18; Pulse Ox 100% ; Pain 3/10; jh6 10:24 BP 162 / 84; Pulse 55; Resp 17; Pulse Ox 100% ; Pain 3/10; jh6 07:47 Body Mass Index 31.16 (95.71 kg, 175.26 cm) ss Laceration: 09:57 Wound Repair of 4cm ( 1.6in ) subcutaneous laceration to right side of forehead. Distal ms3 neuro/vascular/tendon intact. Anesthesia: Local anesthetic administered with 3 mls of 1% lidocaine w/ Epi. Wound prep: Simple cleansing by nurse. Skin closed with 5 5-0 Prolene using simple sutures and sterile technique. Dressed with Bacitracin. Patient tolerated well. MDM: 07:42 Patient medically screened. ms3 09:57 Differential diagnosis: abrasion, closed head injury, contusion, fracture, laceration. ms3 09:58 Data reviewed: vital signs, nurses notes, radiologic studies, CT scan. Data ms3 interpreted: Pulse oximetry: on room air is 100 %. Interpretation: normal. Counseling: I had a detailed discussion with the patient and/or guardian regarding: the historical points, exam findings, and any diagnostic results supporting the discharge/admit diagnosis, radiology results, the need for outpatient follow up, to return to the emergency department if symptoms worsen or persist or if there are any questions or concerns that arise at home. Special discussion: I discussed with the patient the need to follow-up with the PCP/specialist for the noted incidental finding on X-ray/CT scanning. ED course: Discussed CT findings, physical exam findings with patient. Patient to follow-up with primary care physician in 1 week for suture removal and follow up of pulmonary nodules. Patient understands and agrees with plan. All questions were answered. Return precautions discussed include worsening symptoms, or any other concerns. On reevaluation patient is alert and oriented x4, in no apparent distress, nontoxic-appearing, speaking full sentences.. 12/06 07:58 Order name: CT Head C Spine; Complete Time: 08:57 ms3 Administered Medications: 08:09 Drug: Tetanus-Diphtheria Toxoid Adult 0.5 ml {Home Visit Field Care Manager: [employer] ([email or web address]). Exp: jh6 12/08/2022. Lot #: [id number]. } Route: IM; Site: left deltoid; 09:37 Drug: Lidocaine-Epinephrine -1%: (1:100,000) 10 ml Volume: 20 ml; Route: Infiltration; [facility] Disposition Summary: 12/06/21 09:56 Discharge Ordered Location: Home ms3 Condition: Stable ms3 Diagnosis - Fall on same level, unspecified ms3 - Laceration ms3 - suture removal ms3 - staple removal ms3 - Pulmonary nodule ms3 Followup: ms3 - With: Jyothi Mccollum MD - When: 1 week - Reason: Staple/Suture removal Discharge Instructions: - Discharge Summary Sheet ms3 - Facial Laceration ms3 - Pulmonary Nodule, [id number] ms3 Forms: - Medication Reconciliation Form ms3 - Thank You Letter ms3 - Antibiotic Education ms3 - Prescription Opioid Use ms3 Signatures: Dispatcher [employer] EDFelisa Shay RN RN ss Toney Gooden DO DO ms3 Sara Serrato RN RN jh6
--- NOTE | 2021-12-06 09:57 | ER ---
Nurse's Notes [facility] Name: Terrance Monroy Age: 76 yrs Sex: Male : 1945 Arrival Date: 12/06/2021 Time: 07:29 Bed 6 Private MD: Jyothi Mccollum C Diagnosis: Fall on same level, unspecified;Laceration;suture removal;staple removal;Pulmonary nodule Presentation: 12/06 07:47 Chief complaint: Patient states: Pt reportedly fell from standing position just prior ss to arrival. Denies LOC. Skin tear noted to R wrist and R elbow. Laceration noted to R eyebrow. Pt also is requesting to have vania removed from back of head and sutures removed from R earlobe that were placed last week. Coronavirus screen: Client denies travel out of the [place] in the last 14 days. Ebola Screen: Patient denies exposure to infectious person. Patient denies travel to an Ebola-affected area in the 21 days before illness onset. Initial Sepsis Screen: Does the patient meet any 2 criteria? No. Patient's initial sepsis screen is negative. Does the patient have a suspected source of infection? No. Patient's initial sepsis screen is negative. Risk Assessment: Do you want to hurt yourself or someone else? Patient reports no desire to harm self or others. Onset of symptoms was December 06, 2021. 07:47 Method Of Arrival: Ambulatory ss 07:47 Acuity: RADHA 3 ss Historical: - Allergies: 07:53 No Known Allergies; ss - PMHx: 07:53 Atrial Fib; atrial flutter; back spasms; back surgery; Cerebrovascular accident; High ss Cholesterol; Hypertension; Hypothyroidism; MS; TMJ; Trigeminal nueralgia; ulcerative colitis; - Immunization history:: Client reports receiving the 2nd dose of the Covid vaccine. - Social history:: Smoking status: Patient denies any tobacco usage or history of. Screenin:00 Abuse screen: Denies threats or abuse. Denies injuries from another. Nutritional [facility] screening: No deficits noted. Tuberculosis screening: No symptoms or risk factors identified. Fall Risk Fall in past 12 months (25 points). Gait- Impaired (20 pts.). Assessment: 08:00 General: Appears in no apparent distress. comfortable, Behavior is calm, cooperative. jh6 08:00 Pain: Complains of pain in right eye and right side of forehead Pain currently is 3 out jh6 of 10 on a pain scale. Quality of pain is described as aching. Neuro: No deficits noted. Level of Consciousness is awake, alert, obeys commands, Oriented to person, place, time, situation, Appropriate for age Vp Cardiovascular are equal bilaterally Moves all extremities. Derm: Wound noted right eye and right side of forehead. 09:41 Injury Description: Abrasion sustained to right antecubital area is MINIMAL SKIN TEAR. jh6 WOUNDS CLEANED AND DRESSED Laceration sustained to right eye is clean, 0.5 to 2.5 cm long, not bleeding. 10:24 Reassessment: Patient is alert, oriented x 3, equal unlabored respirations, skin jh6 warm/dry/pink. stitches placed to rt eyebrow without difficulty. pt tolerated well and no bleeding after placement. Patient states feeling better. Patient states symptoms have improved. Vital Signs: 07:47 BP 137 / 78; Pulse 52; Resp 16; Pulse Ox 100% on R/A; Weight 95.71 kg; Height 5 ft. 9 ss in. (175.26 cm); Pain 5/10; 08:00 BP 170 / 89; Pulse 59; Resp 18; Pulse Ox 100% ; Pain 3/10; jh6 10:24 BP 162 / 84; Pulse 55; Resp 17; Pulse Ox 100% ; Pain 3/10; jh6 07:47 Body Mass Index 31.16 (95.71 kg, 175.26 cm) ss ED Course: 07:29 Patient arrived in ED. mr 07:29 Jyothi Mccollum MD is Private Physician. mr 07:31 Toney Gooden DO is Attending Physician. ms3 07:41 Sara Serrato, HEIDI is Primary Nurse. jh6 07:53 Triage completed. ss 07:53 Arm band placed on right wrist. ss 08:21 CT Head C Spine In Process Unspecified. EDMS 09:10 Wound care: to laceration was cleaned with with SALINE. mh5 09:11 Patient has correct armband on for positive identification. Placed in gown. Bed in low mh5 position. Call light in reach. Side rails up X2. Adult w/ patient. Warm blanket given. color television console monitor on. Pulse ox on. NIBP on. 09:43 Assist provider with laceration repair on head that was 2.5 cm. or less Performed by 6 Toney Gooden DO Dressed with 4X4s, Patient tolerated well. 09:55 Jyothi Mccollum MD is Referral Physician. ms3 Administered Medications: 08:09 Drug: Tetanus-Diphtheria Toxoid Adult 0.5 ml {Video System Repairer: [employer] ([email or web address]). Exp: jh6 12/08/2022. Lot #: [id number]. } Route: IM; Site: left deltoid; 09:37 Drug: Lidocaine-Epinephrine -1%: (1:100,000) 10 ml Volume: 20 ml; Route: Infiltration; [facility] Outcome: 09:56 Discharge ordered by . ms3 10:25 Discharged to home via wheelchair. 6 10:25 Condition: improved 10:25 Discharge instructions given to patient, family, Instructed on discharge instructions, follow up and referral plans. wound care, Demonstrated understanding of instructions, wound care. 10:26 Patient left the ED. [facility] Signatures: Dispatcher [employer] EDHI Natasha Whitaker [place], HEIDI RN Anila Muñoz [facility] Toney Gooden DO DO ms3 Sara Serrato RN RN [facility]
[2021-12-06 11:01] VITALS: O2SAT 100
[2021-12-06 11:04] VITALS: BP 162/84
== END 2021-12-06 10:26 | disposition home or self-care (01) ==
LOC: ER 07:27
PROC: 0JQ10ZZ Repair Face Subcutaneous Tissue and Fascia, Open Approach (ICD-10-PCS; principal; 2021-12-06)
DX: S01.81XA Laceration without foreign body of other part of head, initial encounter (principal); W18.30XA Fall on same level, unspecified, initial encounter; Z23 Encounter for immunization; I10 Essential (primary) hypertension; I48.91 Unspecified atrial fibrillation; Z86.73 Personal history of transient ischemic attack (TIA), and cerebral infarction without residual deficits
CPT/HCPCS: 70450; 72125; 90471; 90714; 99284

== ENCOUNTER 2021-12-19 13:10 | Emergency (ER) | payer OTHER ==
--- OUTSIDE RECORDS SUMMARY | 2021-12-19 13:16 | XMS REPORT | Continuity of Care Document ---
:1945 Author Organization [facility] t Address [address] [place] [address] Care Team Providers Name Role Phone Timothy GLEZ Primary Care Physician Unavailable AYAKA Attending Clinician Unavailable IRAIDA Attending Clinician Unavailable TODD Attending Clinician Unavailable Oliva Lim MD Attending Clinician BHARGAVI Attending Clinician Unavailable SNOQUALMIE Attending Clinician Unavailable MD JOELLE BROOKS Attending Clinician Unavailable Ayaka RAMOS Attending Clinician ADRYAN LIM Attending Clinician Unavailable BRET Attending Clinician Unavailable MD BHARGAVI RAntonino Attending Clinician Unavailable Lab, Fam Pob I Attending Clinician Unavailable Aneshama ENGINE OILER Attending Clinician LEONIE Attending Clinician Unavailable Doctor Unassigned, Name Attending Clinician Unavailable GUSTAVO Attending Clinician Unavailable ASKED Attending Clinician Unavailable José Miguel RAMOS P Attending Clinician AYAKA Admitting Clinician Unavailable TODD Admitting Clinician Unavailable SNOQUALMIE Admitting Clinician Unavailable MD JOELLE BROOKS Admitting Clinician Unavailable BRET Admitting Clinician Unavailable BHARGAVI Admitting Clinician Unavailable MD Gene BURK Admitting Clinician Unavailable Payers Payer Name Policy Type Policy Number Effective Date Expiration Date S [facility] MEDICARE A B [id number] 2011 2017 00:00:00 00:00:00 [employer] MEDICARE [id number] 2017 2020 ADV 00:00:00 00:00:00 AETNA INDEMNITY [id number] 2012 2016 NON CONTR 00:00:00 00:00:00 [facility] [id number] 2020 2020 00:00:00 00:00:00 UNITED MEDICARE [id number] 2020 HMO 00:00:00 MEDICARE ADVANTAGE [id number] 2020 PPO - [facility] 00:00:00 ZZZTRS-CARE [id number] 2020 MEDICARE ADVANTAGE 00:00:00 MEDICARE PART A [id number] \T\ B - MEDICARE INDEMNITY/TRADITIO [id number] NAL CHOICE - AETNA Problems Condition Condition Condition Status Onset Resolution Last Treating Co mments Source Name Details Category Date Date Treatment Clinician Date ANAYELI ANAYELI Disease Active [facility] (obstructi (obstructi 10-21 Co llege ve sleep ve sleep 00:00: of apnea) apnea) 00 Medicin e Chronic Chronic Disease Active [facility] atrial atrial 3 College fibrillati fibrillati 00:00: of on on 00 Medicin e 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 8-19 [facility] (HCCode) (HCCode) 00:00: of 00 Medicin e 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 8-19 Co llege l l 00:00: of neuralgia) neuralgia) 00 Me dicin e Allergies, Adverse Reactions, Alerts Allergy Allergy Status Severity Reaction(s) Onset Inactive Treating Comm ents Source Name Type Date Date Clinician Clopidog Propensi Active Other [facility] rel ty to 1-15 reaction( College Bisulfat adverse 00:00: s): of e reaction 00 Nausea/Vo Medic in s to miting e drug NO KNOWN Allergy Active [facility] NO KNOWN Drug Active [facility] ALLERGIE Class ity of [facility] Social History Social Habit Start Date Stop Date Quantity Comments Source History [facility] ge of Alcohol Std Medicine Drinks History [facility] ge of Alcohol Binge Medicine Alcohol intake 2021-10-15 2021-10-15 .29 /d [facility] Col lege of 00:00:00 00:00:00 Medicine Exposure to 2021-09-08 2021-10-08 Yes [facility] Colleg e of SARS-CoV-2 00:00:00 11:42:00 Medicine (event) History SDOH 2019-08-23 2019-08-23 2 [facility] Colle ge of Alcohol Frequency 00:00:00 00:00:00 Medicin e Alcohol Comment 2016-04-08 2016-04-08 social [facility] Co llege of 00:00:00 00:00:00 Medicine Tobacco use and 2015-03-15 2015-03-15 Smokeless tobacco [facility] College of exposure 00:00:00 00:00:00 non-user Medicine History of 1977-03-15 Cigarette Smoker [facility] of tobacco use 00:00:00 Medicine Sex [birth year] [facility] of 00:00:00 00:00:00 [facility] Smoking Status Start Date Stop Date Source Unknown if ever smoked [facility] Ex-smoker 2015-03-15 00:00:00 2015-03-15 00:00:00 [facility] of Medicine Medications Ordered Filled Start Stop Current Ordering Indication Dosage Frequency Signature Comments Components Source Medication Medication Date Date Medication? Clinician (SIG) Name Name Dabigatran Yes Take by Larimer lauren Etexilate 3-21 mouth two Colle ge Mesylate 09:45: times of 150 MG CAPS 41 daily. Medici n e Mesalamine Yes Take by Larimer lauren 1.2 g TBEC 3-21 mouth. [facility] 09:45: of 41 Medicin e Cholecalcif Yes 5000mg Take 5,000 [facility] kerline 3-21 mg by [facility] (VITAMIN D 09:45: mouth of OR) 41 [...] 175 [facility] ne 3-21 mcg by [facility] (SYNTHROID) 09:45: mouth of 175 MCG 41 daily. Medicin tablet e oxcarbazepi Yes 300mg Take 300 [facility] ne 3-21 mg by [facility] (TRILEPTAL) 09:45: mouth two o f 300 MG 41 times Medicin tablet daily. e Alfuzosin Yes [id number] TAKE ONE [facility] HCl 10 MG 2-22 9100 TABLET BY [facility] ge TB24 00:00: MOUTH AT of 00 BEDTIME Medicin e amlodipine Yes as needed. [facility] (NORVASC) 2-12 [facility] 2.5 MG 00:00: of tablet 00 Medicin e Amantadine 2020-07 Yes TAKE ONE [facility] la[facility] HCl 100 MG 2-13 TABLET BY [facility] TABS 00:00: MOUTH of 00 TWICE A Medicin DAY e modafinil Yes TAKE ONE [facility] (PROVIGIL) 9-24 TABLET BY [facility] 200 MG 00:00: MOUTH of tablet 00 TWICE A Medicin DAY e Dabigatran Yes Take by Larimer lauren Etexilate 9-20 mouth two Colle ge Mesylate 10:10: times of (PRADAXA) 55 daily. Medicin 150 MG CAPS e Mesalamine Yes Take by Larimer lauren (LIALDA) 9-20 mouth. College 1.2 G TBEC 10:10: of 55 Medicin e Cholecalcif Yes 5000mg Take 5,000 [facility] kerline 9-20 mg by [facility] (VITAMIN D 10:10: mouth of OR) 55 [...] 175 [facility] ne 9-20 mcg by [facility] (SYNTHROID) 10:10: mouth of 175 MCG 55 daily. Medicin tablet e oxcarbazepi Yes 300mg Take 300 [facility] ne 9-20 mg by [facility] (TRILEPTAL) 10:10: mouth two o f 300 MG 55 times Medicin tablet daily. e Dabigatran Yes Take by [facility]imer lauren Etexilate 9-20 mouth two Colle ge Mesylate 10:10: times of (PRADAXA) 55 daily. Medicin 150 MG CAPS e Mesalamine Yes Take by Larimer lauren (LIALDA) 9-20 mouth. [facility] 1.2 G TBEC 10:10: of 55 Medicin e Cholecalcif Yes 5000mg Take 5,000 [facility] kerline 9-20 mg by [facility] (VITAMIN D 10:10: mouth of OR) 55 [...] 175 [facility] ne 9-20 mcg by [facility] (SYNTHROID) 10:10: mouth of 175 MCG 55 daily. Medicin tablet e oxcarbazepi Yes 300mg Take 300 [facility] ne 9-20 mg by [facility] (TRILEPTAL) 10:10: mouth two o f 300 [...] Medicin daily. e Amantadine Yes TAKE ONE [facility] la[facility] HCl 100 MG 7-27 TABLET BY [facility] TABS 00:00: MOUTH of 00 TWICE A Medicin DAY e Amantadine Yes TAKE ONE [facility] la[facility] HCl 100 MG 7-27 TABLET BY [facility] TABS 00:00: MOUTH of 00 TWICE A Medicin DAY e amiodarone Yes 1 tablet [facility] lauren (PACERONE) 7-09 by mouth Colle ge 200 MG 00:00: twice a of tablet 00 day Medicin e modafinil 2020- No TAKE ONE [facility] lauren (PROVIGIL) 01-18 TABLET BY Col lege 200 MG 00:00: 00:00 MOUTH of tablet 00 :00 TWICE A Medicin DAY e modafinil 2020- No TAKE ONE [facility] lauren (PROVIGIL) 01-18 TABLET BY Col lege 200 MG 00:00: 00:00 MOUTH of tablet 00 :00 TWICE A Medicin DAY e midodrine Yes 1{tbl} Take 1 [facility] (PROAMATINE 6-07 Tablet by Col lege ) 5 MG 00:00: mouth 3 of tablet 00 times Medicin daily. e Dabigatran Yes Take by Larimer lauren Etexilate 5-24 mouth two Colle ge Mesylate 09:11: times of (PRADAXA) 20 daily. Medicin 150 MG CAPS e Mesalamine Yes Take by Larimer lauren (LIALDA) 5-24 mouth. College 1.2 G TBEC 09:11: of 20 Medicin e Cholecalcif Yes 5000mg Take 5,000 [facility] kerline 5-24 mg by [facility] (VITAMIN D 09:11: mouth of OR) 20 [...] 175 [facility] ne 5-24 mcg by [facility] (SYNTHROID) 09:11: mouth of 175 MCG 20 daily. Medicin tablet e oxcarbazepi Yes 300mg Take 300 [facility] ne 5-24 mg by [facility] (TRILEPTAL) 09:11: mouth two o f 300 MG 20 times Medicin tablet daily. e digoxin Yes 125ug Take 125 [facility] (LANOXIN) 4-13 mcg by [facility] 125 MCG 00:00: mouth at of tablet 00 bedtime. Medicin e digoxin Yes 125ug Take 125 [facility] (LANOXIN) 4-13 mcg by [facility] 125 MCG 00:00: mouth at of tablet 00 bedtime. Medicin e digoxin Yes 125ug Take 125 [facility] (LANOXIN) 4-13 mcg by [facility] 125 MCG 00:00: mouth at of tablet 00 bedtime. Medicin e digoxin Yes 125ug Take 125 [facility] (LANOXIN) 4-13 mcg by [facility] 125 MCG 00:00: mouth at of tablet 00 bedtime. Medicin e digoxin Yes 125ug Take 125 [facility] (LANOXIN) 4-13 mcg by [facility] 125 MCG 00:00: mouth at of tablet 00 bedtime. Medicin e Dabigatran Yes Take by Larimer lauren Etexilate 3- mouth two Colle ge Mesylate 15:43: times of (PRADAXA) 03 daily. Medicin 150 MG CAPS e Mesalamine Yes Take by Larimer lauren (LIALDA) 3- mouth. [place] 1.2 G TBEC 15:43: of 03 Medicin e Cholecalcif Yes 5000mg Take 5,000 [facility] kerline 3- mg by [facility] (VITAMIN D 15:43: mouth of OR) 03 [...] 175 [facility] ne 3-01 mcg by [facility] (SYNTHROID) 15:43: mouth of 175 MCG 03 daily. Medicin tablet e oxcarbazepi Yes 300mg Take 300 [facility] ne 3-01 mg by [facility] (TRILEPTAL) 15:43: mouth two o f 300 MG 03 times Medicin tablet daily. e Dabigatran Yes Take by Larimer lauren Etexilate 3-01 mouth two Colle ge Mesylate 15:43: times of (PRADAXA) 03 daily. Medicin 150 MG CAPS e Mesalamine 0 Yes Take by Larimer lauren (LIALDA) 3-01 mouth. [place] 1.2 G TBEC 15:43: of 03 Medicin e Cholecalcif 2020-0 Yes 5000mg Take 5,000 [facility] kerline 3-01 mg by [facility] (VITAMIN D 15:43: mouth of OR) 03 [...] 175 [facility] ne 3-01 mcg by [facility] (SYNTHROID) 15:43: mouth of 175 MCG 03 daily. Medicin tablet e oxcarbazepi 0 Yes 300mg Take 300 [facility] ne 3-01 mg by [facility] (TRILEPTAL) 15:43: mouth two o f 300 MG 03 times Medicin tablet daily. e Dabigatran Yes Take by Larimer lauren Etexilate 3- mouth two Colle ge Mesylate 15:43: times of (PRADAXA) 03 daily. Medicin 150 MG CAPS e Mesalamine 0 Yes Take by Larimer lauren (LIALDA) 3- mouth. [place] 1.2 G TBEC 15:43: of 03 Medicin e Cholecalcif 2020-0 Yes 5000mg Take 5,000 [facility] kerline 3-01 mg by [facility] (VITAMIN D 15:43: mouth of OR) 03 [...] 175 [facility] ne 3-01 mcg by [facility] (SYNTHROID) 15:43: mouth of 175 MCG 03 daily. Medicin tablet e oxcarbazepi Yes 300mg Take 300 [facility] ne 3-01 mg by [facility] (TRILEPTAL) 15:43: mouth two o f 300 MG 03 times Medicin tablet daily. e olmesartan 2020- No 5mg Take 5 mg [facility] (BENICAR) 5 -07 30- by mouth Col lege MG tablet 15:41: 00:00 daily. of 20 :00 Medicin e amlodipine 2020- No 2.5mg Take 2.5 [facility] (NORVASC) 09-25 03- mg by [facility] 2.5 MG 15:41: 00:00 mouth of tablet 08 :00 daily. Medicin e rosuvastati Yes 10mg Take 10 mg [facility] n (CRESTOR) 2-26 by mouth [facility] 10 MG 00:00: daily. of tablet 00 Medicin e rosuvastati Yes 10mg Take 10 mg [facility] n (CRESTOR) 2-26 by mouth [facility] 10 MG 00:00: daily. of tablet 00 Medicin e rosuvastati Yes 10mg Take 10 mg [facility] n (CRESTOR) 2-26 by mouth [facility] 10 MG 00:00: daily. of tablet 00 Medicin e rosuvastati Yes 10mg Take 10 mg [facility] n (CRESTOR) 2-26 by mouth [facility] 10 MG 00:00: daily. of tablet 00 Medicin e rosuvastati Yes 10mg Take 10 mg [facility] n (CRESTOR) 2-26 by mouth [facility] 10 MG 00:00: daily. of tablet 00 Medicin e rosuvastati Yes 10mg Take 10 mg [facility] n (CRESTOR) 2-26 by mouth [facility] 10 MG 00:00: daily. of tablet 00 Medicin e rosuvastati Yes 10mg Take 10 mg [facility] n (CRESTOR) 2-26 by mouth [facility] 10 MG 00:00: daily. of tablet 00 Medicin e Alfuzosin 2021-0 Yes [id number] 10mg Take 10 mg [facility] HCl 10 MG 2-16 9100 by mouth Colleg e TB24 00:00: at of 00 bedtime. Medicin e Alfuzosin 2020-0 Yes [id number] 10mg Take 10 mg [facility] HCl 10 MG 2-16 9100 by mouth Colleg e TB24 00:00: at of 00 bedtime. Medicin e Alfuzosin 1-0 Yes [id number] 10mg Take 10 mg [facility] HCl 10 MG 2-16 9100 by mouth Colleg e TB24 00:00: at of 00 bedtime. Medicin e Alfuzosin 2020-0 Yes [id number] 10mg Take 10 mg [facility] HCl 10 MG 2-16 9100 by mouth Colleg e TB24 00:00: at of bedtime. Medicin e Alfuzosin 2020-0 Yes [id number] 10mg Take 10 mg [facility] HCl 10 MG 2-16 9100 by mouth Colleg e TB24 00:00: at of bedtime. Medicin e Alfuzosin 2020-0 Yes [id number] 10mg Take 10 mg [facility] HCl 10 MG 2-16 9100 by mouth Colleg e TB24 00:00: at of 00 bedtime. Medicin e latanoprost 2020-0 Yes [facility] (XALATAN) 2-08 [facility] 0.005 % 00:00: of ophthalmic 00 Medicin solution e latanoprost 2020-0 Yes [facility] (XALATAN) 2-08 [facility] 0.005 % 00:00: of ophthalmic 00 Medicin solution e latanoprost 2020-0 Yes [facility] (XALATAN) 2-08 [facility] 0.005 % 00:00: of ophthalmic 00 Medicin solution e latanoprost 2020-0 Yes [facility] (XALATAN) 2-08 [facility] 0.005 % 00:00: of ophthalmic 00 Medicin solution e latanoprost 2020-0 Yes [facility] (XALATAN) 2-08 [facility] 0.005 % 00:00: of ophthalmic 00 Medicin solution e latanoprost 2020-0 Yes [facility] (XALATAN) 2-08 [facility] 0.005 % 00:00: of ophthalmic 00 Medicin [...] DAY lorazepam 0 Yes .5mg Take 1 [facility] (ATIVAN) 2-03 Tablet by Colleg e 0.5 [...] clopidogrel 2019- Yes 75mg Take 75 mg [facility] (PLAVIX) 75 2-18 by mouth [facility] e[facility] MG Tablet 00:00: daily. of 00 Medicin e clopidogrel 2019- Yes 75mg Take 75 mg [facility] (PLAVIX) 75 2-18 by mouth [facility] MG Tablet 00:00: daily. of 00 Medicin e clopidogrel 2019-07 Yes 75mg Take 75 mg [facility] (PLAVIX) 75 2-18 by mouth [facility] e[facility] [...] DAY e Amantadine 2019-07 Yes TAKE ONE [facility] HCl 100 MG 1-27 TABLET BY [facility] e[facility] TABS 00:00: MOUTH of 00 TWICE A Medicin DAY e Amantadine 2019-07 Yes TAKE ONE [facility] HCl 100 MG 1-27 TABLET BY [facility] TABS 00:00: MOUTH of 00 TWICE A Medicin DAY e Amantadine 2019-07 Yes TAKE ONE [facility] HCl 100 MG 1-27 TABLET BY [facility] TABS 00:00: MOUTH of 00 TWICE A Medicin DAY e Amantadine 2019-07 Yes TAKE ONE [facility] lauren HCl 100 MG 1-27 TABLET BY [facility] e[facility] TABS 00:00: MOUTH of 00 TWICE A Medicin DAY e amiodarone Yes [facility] (PACERONE) 8-07 College 200 MG 00:00: of tablet 00 Medicin e amiodarone Yes [facility] (PACERONE) 8-07 College 200 MG 00:00: of tablet 00 Medicin e amiodarone 2020- No [facility] (PACERONE) 8-07 04-15 College 200 MG 00:00: 00:00 of tablet 00 :00 Medicin e Dabigatran 2020-0 Yes Take by Larimer lauren Etexilate 3-17 mouth two Colle ge Mesylate 16:18: times of (PRADAXA) 48 daily. Medicin 150 MG CAPS e Mesalamine 2020-0 Yes Take by Larimer lauren (LIALDA) 3-17 mouth. College 1.2 G TBEC 16:18: of 48 Medicin e Cholecalcif 2020-0 Yes 5000mg Take 5,000 [facility] kerline 3-17 mg by [facility] (VITAMIN D 16:18: mouth of OR) 48 [...] 2.5 [facility] (NORVASC) 3-17 mg by [place] 2.5 MG 16:18: mouth of tablet 48 daily. Medicin e levothyroxi 2020-0 Yes 175ug Take 175 [facility] ne 3-17 mcg by [facility] (SYNTHROID) 16:18: mouth of 175 MCG 48 daily. Medicin tablet e oxcarbazepi 2020-0 Yes 300mg Take 300 [facility] ne 3-17 mg by [facility] (TRILEPTAL) 16:18: mouth two o f 300 MG 48 times Medicin tablet daily. e oxcarbazepi 2020-0 Yes 150mg Take 150 [facility] ne 3-17 mg by [facility] (TRILEPTAL) 16:18: mouth two o f 150 MG 48 times Medicin tablet daily. e Tamsulosin 2020-0 Yes [id number] .4mg Take 0.4 [facility] HCl 0.4 MG 3-17 9100 mg by [facility] CAPS 00:00: mouth at of 00 bedtime. Medicin e ciprofloxac 2020-0 Yes [id number] 500mg Take 1 Tab [facility] in (CIPRO) 3-17 by mouth Colle ge 500 MG 00:00: two times of tablet 00 daily. Medicin e Amantadine 2020-0 Yes TAKE ONE [facility] lauren HCl 100 MG 3-16 TABLET BY [facility] TABS 00:00: MOUTH of 00 TWICE A Medicin DAY e Dabigatran 2020-0 Yes Take by Larimer lauren Etexilate 2-25 mouth two Colle ge Mesylate 19:48: times of (PRADAXA) 18 daily. Medicin 150 MG CAPS e Mesalamine 2020-0 Yes Take by Larimer lauren (LIALDA) 2-25 mouth. College 1.2 G TBEC 19:48: of 18 Medicin e Cholecalcif 2020-0 Yes 5000mg Take 5,000 [facility] kerline 2-25 mg by [facility] (VITAMIN D 19:48: mouth of OR) 18 [...] 175 [facility] ne 2-25 mcg by [facility] (SYNTHROID) 19:48: mouth of 175 MCG 18 daily. Medicin tablet e oxcarbazepi 2020-0 Yes 300mg Take 300 [facility] ne 2-25 mg by [facility] (TRILEPTAL) 19:48: mouth two o f 300 MG 18 times Medicin tablet daily. e oxcarbazepi 2020-0 Yes 150mg Take 150 [facility] ne 2-25 mg by [facility] (TRILEPTAL) 19:48: mouth two o f 150 MG 18 times Medicin tablet daily. e furosemide 2020-0 2020- No 40mg Take 40 mg [facility] (LASIX) 40 2-25 02-25 by mouth [facility] ege MG tablet 19:48: 00:00 daily. of 18 :00 Medicin e levothyroxi 2020-0 2020- No 150ug Take 150 [facility] ne 2-25 02-25 mcg by [facility] (SYNTHROID) 19:48: 00:00 mouth of 150 MCG 18 :00 daily. Medicin tablet e LATANOPROST 2019-0 2020- No Apply to [facility] OP 2-21 09-25 eye. [facility] 19:48: 00:00 of 18 :00 Medicin e potassium 2020-0 2020- No 10meq Take 10 [facility] lauren chloride 2-25 02-25 mEq by [facility] (KDUR) 10 19:48: 00:00 mouth of MEQ [...] e Cholecalcif 2020-0 Yes 5000mg Take 5,000 [facility] kerline 1-27 mg by [facility] (VITAMIN D 18:14: mouth of OR) 28 [...] 150 [facility] ne 1-27 mcg by [facility] (SYNTHROID) 18:14: mouth of 150 MCG 28 daily. Medicin tablet e Dabigatran Yes Take by Larimer lauren Etexilate 08-23 mouth two Colle ge Mesylate 18:14: times of (PRADAXA) 28 daily. Medicin 150 MG CAPS e LATANOPROST Yes Apply to Aravind spangler OP 08-23 eye. College 18:14: of Medicin e potassium Yes 10meq Take 10 [facility] chloride 08-23 mEq by [facility] (KDUR) 10 18:14: mouth of MEQ tablet 28 daily. Medicin e Mesalamine Yes Take by Larimer lauren (LIALDA) 08-23 mouth. [facility] 1.2 G TBEC 18:14: Medicin e methylPREDN 2018-07 Yes Take by Larimer lauren ISolone - mouth as College (MEDROL 00:00: directed. of [facility]) 4 00 Medicin MG tablet e methylPREDN 2018-07 2020- No Take by [facility] ISolone 1-15 09-21 mouth as College (MEDROL 00:00: 00:00 directed. of [facility]) 4 00 :00 Medicin MG tablet e modafinil 2018-07 Yes TAKE ONE [facility] (PROVIGIL) 1-08 TABLET BY [facility] 200 MG 00:00: MOUTH of tablet 00 TWICE A Medicin DAY e modafinil 2018-07 2020- No TAKE ONE [facility] lauren (PROVIGIL) 1-08 09-21 TABLET BY Col [...] Medicin DAY e Amantadine Yes TAKE ONE [facility] la[facility] HCl 100 MG 3-25 TABLET BY [facility] TABS 00:00: MOUTH of 00 TWICE A Medicin DAY e Amantadine Yes TAKE ONE [facility] lauren HCl 100 MG 3-25 TABLET BY [facility] TABS 00:00: MOUTH of 00 TWICE A Medicin DAY e Amantadine Yes TAKE ONE [facility] lauren HCl 100 MG 3-25 TABLET BY [facility] TABS 00:00: MOUTH of 00 TWICE A Medicin DAY e furosemide Yes 40mg Take 40 mg [facility] (LASIX) 40 1-14 by mouth Colle ge MG tablet 20:27: daily. of 10 Medicin e levothyroxi Yes 150ug Take 150 [facility] ne 1-14 mcg by [facility] (SYNTHROID) 20:27: mouth of 150 MCG 10 daily. Medicin tablet e Dabigatran Yes Take by Larimer lauren Etexilate 1-14 mouth two Colle ge Mesylate 20:27: times of (PRADAXA) 10 daily. Medicin 150 MG CAPS e LATANOPROST Yes Apply to [facility] OP 1-14 eye. College 20:27: of 10 Medicin e potassium Yes 10meq Take 10 [facility] chloride 1-14 mEq by [facility] (KDUR) 10 20:27: mouth of MEQ tablet 10 daily. Medicin e Mesalamine Yes Take by Larimer lauren (LIALDA) 1-14 mouth. College 1.2 G TBEC 20:27: of 10 Medicin e Cholecalcif Yes 5000mg Take 5,000 [facility] kerline 1-14 mg by [facility] (VITAMIN D 20:27: mouth of OR) 10 daily. Medicin e amiodarone Yes Inject [facility] (CORDARONE) 1-14 into the [facility] 50 mg/mL 20:27: vein. of injection 10 Medicin e Ocrelizumab 2018-0 Yes Inject [facility] (OCREVUS) 1-14 into the Colleg e 300 MG/10ML 20:27: vein once. of injection 10 Medicin e oxcarbazepi 2015-0 Yes [facility] ne 04-02 College (TRILEPTAL) 00:00: of 600 MG 00 Medicin tablet e oxcarbazepi 2015-0 Yes [facility] 04-02 College (TRILEPTAL) 00:00: of 600 MG 00 Medicin tablet e oxcarbazepi 2015-0 2020- No [facility] ne 04-02 College (TRILEPTAL) 00:00: 00:00 of 600 MG 00 :00 Medicin tablet e esomeprazol 2015-0 Yes [facility] e (NEXIUM) 8-17 College 40 MG 00:00: of capsule 00 Medicin e esomeprazol 2015-0 Yes [facility] e (NEXIUM) 8-17 College 40 MG 00:00: of capsule 00 Medicin e esomeprazol 2015-0 Yes [facility] e (NEXIUM) 8-17 College 40 MG 00:00: of capsule 00 Medicin e esomeprazol 2015-0 Yes [facility] e (NEXIUM) 8-17 College 40 MG 00:00: of capsule 00 Medicin e esomeprazol 2015-0 Yes [facility] e (NEXIUM) 8-17 College 40 MG 00:00: of capsule 00 Medicin e esomeprazol 2015-0 Yes [facility] e (NEXIUM) 8-17 College 40 MG 00:00: of capsule 00 Medicin e esomeprazol 2016-0 Yes [facility] e (NEXIUM) 8-17 College 40 MG 00:00: of capsule 00 Medicin e esomeprazol 2016-0 Yes [facility] e (NEXIUM) 8-17 College 40 MG 00:00: of capsule 00 Medicin e esomeprazol 2016-0 Yes [facility] e (NEXIUM) 8-17 College 40 MG 00:00: of capsule 00 Medicin e esomeprazol 2015-0 Yes [facility] e (NEXIUM) 8-17 College 40 MG 00:00: of capsule 00 Medicin e esomeprazol 2015-0 Yes [facility] e (NEXIUM) 8-17 College 40 MG 00:00: of capsule 00 Medicin e Vital Signs Vital Name Observation Time Observation Value Comments Source HEIGHT 2020-12-20 06:00:00 193 cm WEIGHT 2020-12-20 06:00:00 75.7 kg HEIGHT 2020-12-19 13:14:00 193 cm WEIGHT 2020-12-19 13:14:00 74.844 kg Systolic blood 2021-10-15 14:49:00 128 mm[Hg] [facility] Medicine Diastolic blood 2021-10-15 14:49:00 76 mm[Hg] [facility] Heart rate 2021-10-15 14:49:00 65 /min [facility] Respiratory rate 2021-10-15 14:49:00 16 /min [facility] Body height 2021-10-15 14:49:00 193 cm [facility] Body weight 2021-10-15 14:49:00 [facility] BMI 2021-10-15 14:49:00 19.45 kg/m2 [facility] Systolic blood 2021-04-16 15:06:00 96 mm[Hg] [facility] Medicine Diastolic blood 2021-04-16 15:06:00 63 mm[Hg] [facility] Medicine Heart rate 2021-04-16 15:06:00 69 /min [facility] Medicine Body height 2021-04-16 15:06:00 193 cm [facility] Body weight 2021-04-16 15:06:00 74.39 kg [facility] BMI 2021-04-16 15:06:00 19.96 kg/m2 [facility] Medicine Systolic blood 2020-12-18 14:09:00 169 mm[Hg] [facility] Medicine Diastolic blood 2020-12-18 14:09:00 108 mm[Hg] [facility] Medicine Heart rate 2020-12-18 14:09:00 67 /min [facility] Body temperature 2020-12-18 14:09:00 36.28 Vaishnavi [facility] Respiratory rate 2020-12-18 14:09:00 16 /min [facility] Body height 2020-12-18 14:09:00 193 cm [facility] Body weight 2020-12-18 14:09:00 75.841 kg [facility] Medicine BMI 2020-12-18 14:09:00 20.35 kg/m2 [facility] Oxygen saturation in 2020-12-18 14:09:00 100 /min [facility] Arterial blood by [facility] Pulse oximetry Systolic blood 2020-11-09 15:14:00 99 mm[Hg] [facility] pressure Medicine Diastolic blood 2020-11-09 15:14:00 71 mm[Hg] [facility] Medicine Heart rate 2020-11-09 15:14:00 128 /min [facility] Body height 2020-11-09 15:14:00 193 cm [facility] Body weight 2020-11-09 15:14:00 76.204 kg [facility] BMI 2020-11-09 15:14:00 20.45 kg/m2 [facility] Systolic blood 2020-09-27 16:10:00 121 mm[Hg] [facility] pressure Medicine Diastolic blood 2020-09-27 16:10:00 80 mm[Hg] [facility] pressure Medicine Heart rate 2020-09-27 16:10:00 70 /min [facility] Body height 2020-09-27 16:10:00 193 cm [facility] Body weight 2020-09-27 16:10:00 83.915 kg [facility] BMI 2020-09-27 16:10:00 22.52 kg/m2 [facility] Systolic blood 2020-09-25 15:40:00 121 mm[Hg] [facility] pressure Medicine Diastolic blood 2020-09-25 15:40:00 85 mm[Hg] [facility] pressure Medicine Heart rate 2020-09-25 15:40:00 64 /min [facility] Body temperature 2020-09-25 15:40:00 36.22 Vaish[facility]i [facility] Respiratory rate 2020-09-25 15:40:00 16 /min [facility] Body height 2020-09-25 15:40:00 193 cm [facility] Body weight 2020-09-25 15:40:00 83.008 kg [facility] BMI 2020-09-25 15:40:00 22.28 [facility] Oxygen saturation in 2020-09-25 15:40:00 100 /min [facility] blood by [facility] Pulse oximetry HEIGHT 2020-09-08 10:50:00 193 cm WEIGHT 2020-09-08 10:50:00 83.144 kg HEIGHT 2020-09-08 10:50:00 193 cm WEIGHT 2020-09-08 10:50:00 83.144 kg Systolic blood 2019-10-12 16:12:00 177 mm[Hg] [facility] pressure Medicine Diastolic blood 2019-10-12 16:12:00 107 mm[Hg] [facility] pressure Medicine Heart rate 2019-10-12 16:12:00 58 /min [facility] Body height 2019-10-12 16:12:00 193 cm [facility] Body weight 2019-10-12 16:12:00 83.915 kg [facility] BMI 2019-10-12 16:12:00 22.52 kg/m2 [facility] Systolic blood 2019-09-21 19:28:00 139 mm[Hg] [facility] of pressure Medicine Diastolic blood 2019-09-21 19:28:00 97 mm[Hg] [facility] of pressure Medicine Heart rate 2019-09-21 19:28:00 56 /min [facility] Body height 2019-09-21 19:28:00 193 cm [facility] Body weight 2019-09-21 19:28:00 82.555 kg [facility] of Medicine BMI 2019-09-21 19:28:00 22.15 kg/m2 [facility] Systolic blood 2019-08-23 18:15:00 125 mm[Hg] [facility] of pressure Medicine Diastolic blood 2019-08-23 18:15:00 86 mm[Hg] [facility] pressure Medicine Heart rate 2019-08-23 18:15:00 65 /min [facility] Body temperature 2019-08-23 18:15:00 36.5 Vaishnavi [facility] Respiratory rate 2019-08-23 18:15:00 14 /min [facility] Body height 2019-08-23 18:15:00 193 cm [facility] 2019-08-23 18:15:00 83.915 kg [facility] BMI 2019-08-23 18:15:00 22.52 kg/m2 [facility] Oxygen saturation in 2019-08-23 18:15:00 99 /min [facility] Arterial blood by [facility] Pulse oximetry Systolic blood 2019-03-04 18:59:00 155 mm[Hg] [facility] pressure Medicine Diastolic blood 2019-03-04 18:59:00 96 mm[Hg] [facility] Medicine Heart rate 2019-03-04 18:59:00 63 /min [facility] Body height 2019-03-04 18:59:00 193 cm [facility] Body weight 2019-03-04 18:59:00 87.998 kg [facility] BMI 2019-03-04 18:59:00 23.61 kg/m2 [facility] Procedures This patient has no known procedures. Plan of Care Planned Activity Planned Date Details Comments Source Future Scheduled 2021-10-16 TETANUS SHOT (ADULT) [facility] Test 07:31:08 [code = TETANUS SHOT of Medi cine (ADULT)] Future Scheduled 2021-10-16 Hepatitis C screening [facility] Test 07:31:08 (procedure) [code = of Medic ine 166462883] Future Scheduled 2021-10-16 ZOSTER VACCINE (1 of [facility] Test 07:31:08 2) [code = ZOSTER of Medicin e VACCINE (1 of 2)] Future Scheduled 2021-10-16 Abdominal aortic [facility] Test 07:31:08 aneurysm screening of Medici ne (procedure) [code = 467969004] Future Scheduled 2021-10-16 Pneumococcal 65+ (1 [employer] Test 07:31:08 of 1 - PPSV23) [code of Medi cine = Pneumococcal 65+ (1 of 1 - PPSV23)] Future Scheduled 2021-10-16 Screening for [facility] Test 07:31:08 malignant neoplasm of of Med icine colon (procedure) [code = 901657106] Future Scheduled 2021-10-16 MEDICARE AWV [facility] Test 07:31:08 (Initial) [code = of Medicin e MEDICARE AWV (Initial)] Future Scheduled 2021-10-16 MEDICARE IPPE [facility] Test 07:31:08 (WELCOME TO MEDICARE) of Med icine [code = MEDICARE IPPE (WELCOME TO MEDICARE)] Future Scheduled 2021-10-16 COVID-19 Vaccine (3 - [employer] Test 07:31:08 Booster for Pfizer of Medici ne series) [code = COVID-19 Vaccine (3 - Booster for Pfizer series)] Future Scheduled 2021-10-16 FLU VACCINE > 6 [facility] Test 07:31:08 MONTHS [code = FLU of Medici ne VACCINE > 6 MONTHS] Future Scheduled 2021-10-16 FALL SCREEN [code = [employer] Test 07:31:08 FALL SCREEN] of Medicine Future Scheduled 2021-04-16 TETANUS SHOT (ADULT) [employer] Test 10:09:56 [code = TETANUS SHOT of Medi cine (ADULT)] Future Scheduled 2021-04-16 Hepatitis C screening [employer] Test 10:09:56 (procedure) [code = of Medic ine 029455487] Future Scheduled 2021-04-16 ZOSTER VACCINE (1 of [employer] Test 10:09:56 2) [code = ZOSTER of Medicin e VACCINE (1 of 2)] Future Scheduled 2021-04-16 Abdominal aortic [facility] Test 10:09:56 aneurysm screening of Medici ne (procedure) [code = 837665615] Future Scheduled 2021-04-16 PNEUMOVAX >=65 [facility] Test 10:09:56 (PPSV23) [code = of Medicine PNEUMOVAX >=65 (PPSV23)] Future Scheduled 2021-04-16 Screening for [facility] Test 10:09:56 malignant neoplasm of of Med icine colon (procedure) [code = 889022508] Future Scheduled 2021-04-16 FLU VACCINE > 6 [facility] Test 10:09:56 MONTHS [code = FLU of Medici ne VACCINE > 6 MONTHS] Future Scheduled 2021-04-16 FALL SCREEN [code = [employer] Test 10:09:56 FALL SCREEN] of Medicine Future Scheduled 2021-04-16 TETANUS SHOT (ADULT) [employer] Test 10:09:56 [code = TETANUS SHOT of Medi cine (ADULT)] Future Scheduled 2021-04-16 Hepatitis C screening [employer] Test 10:09:56 (procedure) [code = of Medic ine 751680135] Future Scheduled 2021-04-16 ZOSTER VACCINE (1 of [employer] Test 10:09:56 2) [code = ZOSTER of Medicin e VACCINE (1 of 2)] Future Scheduled 2021-04-16 Abdominal aortic [facility] Test 10:09:56 aneurysm screening of Medici ne (procedure) [code = 963482344] Future Scheduled 2021-04-16 PNEUMOVAX >=65 [facility] Test 10:09:56 (PPSV23) [code = of Medicine PNEUMOVAX >=65 (PPSV23)] Future Scheduled 2021-04-16 Screening for [facility] Test 10:09:56 malignant neoplasm of of Med icine colon (procedure) [code = 720135238] Future Scheduled 2021-04-16 FLU VACCINE > 6 [facility] Test 10:09:56 MONTHS [code = FLU of Medici ne VACCINE > 6 MONTHS] Future Scheduled 2021-04-16 FALL SCREEN [code = [employer] Test 10:09:56 FALL SCREEN] of Medicine Future Scheduled 2020-12-21 TETANUS SHOT (ADULT) [employer] Test 13:03:52 [code = TETANUS SHOT of Medi cine (ADULT)] Future Scheduled 2020-12-21 Hepatitis C screening [employer] Test 13:03:52 (procedure) [code = of Medic ine 900860621] Future Scheduled 2020-12-21 ZOSTER VACCINE (1 of [employer] Test 13:03:52 2) [code = ZOSTER of Medicin e VACCINE (1 of 2)] Future Scheduled 2020-12-21 Abdominal aortic [facility] Test 13:03:52 aneurysm screening of Medici ne (procedure) [code = 652013929] Future Scheduled 2020-12-21 PNEUMOVAX >=65 [facility] Test 13:03:52 (PPSV23) [code = of Medicine PNEUMOVAX >=65 (PPSV23)] Future Scheduled 2020-12-21 Screening for [facility] Test 13:03:52 malignant neoplasm of of Med icine colon (procedure) [code = 398950600] Future Scheduled 2020-12-21 FLU VACCINE > 6 [facility] Test 13:03:52 MONTHS [code = FLU of Medici ne VACCINE > 6 MONTHS] Future Scheduled 2020-12-21 FALL SCREEN [code = [employer] Test 13:03:52 FALL SCREEN] of Medicine Future Scheduled TETANUS SHOT (ADULT) [employer] Test [code = TETANUS SHOT [...] SCREEN] of Medicine Future Scheduled PNEUMOVAX >=65 [facility] Test (PPSV23) [code = of Medicine PNEUMOVAX >=65 (PPSV23)] Future Scheduled PREVNAR >= 65 (PCV13) [employer] Test [code = PREVNAR >= 65 of Med icine (PCV13)] Future Scheduled COLON CANCER [facility] [employer] Test SCREENING: of Medicine COLONOSCOPY [code = COLON CANCER SCREENING: COLONOSCOPY] Future Scheduled FLU VACCINE > 6 [facility] Test MONTHS [code = FLU of Medici ne VACCINE > 6 MONTHS] Future Scheduled ABSOLUTE LYMPHOCYTE Ordered: [employer] Test COUNT [code = NOCPT] 09/21/2019 of Medi cine Future Scheduled COMPREHENSIVE Ordered: [facility] Test METABOLIC PANEL [code 09/21/2019 of Med icine = 71326-5] Future Scheduled IMMUNOGLOBULIN [facility] Test PROFILE [code = of Medicine 65062-7] Future Scheduled TETANUS SHOT (ADULT) [employer] Test [code = TETANUS SHOT [...] Med icine (PCV13)] Future Scheduled COLON CANCER [facility] [employer] Test SCREENING: of Medicine COLONOSCOPY [code = COLON CANCER SCREENING: COLONOSCOPY] Future Scheduled FLU VACCINE > 6 [employer] Test MONTHS [code = FLU of Medici ne VACCINE > 6 MONTHS] Future Scheduled URINALYSIS AUTO Ordered: [facility] Test W/SCOPE [code = 10/12/2019 of [facility] 60056-0] Future Scheduled TETANUS SHOT (ADULT) [employer] Test [code = TETANUS SHOT [...] Med icine (PCV13)] Future Scheduled COLON CANCER [facility] [employer] Test SCREENING: of Medicine COLONOSCOPY [code = COLON CANCER SCREENING: COLONOSCOPY] Future Scheduled FLU VACCINE > 6 [employer] Test MONTHS [code = FLU of Medici ne VACCINE > 6 MONTHS] Future Scheduled TETANUS SHOT (ADULT) [employer] Test [code = TETANUS SHOT of Medi cine (ADULT)] Future Scheduled HEPATITIS C SCREENING [employer] Test [code = HEPATITIS C of Medic ine SCREENING] Future Scheduled ZOSTER VACCINE (1 of [employer] Test 2) [code = ZOSTER of Medicin e VACCINE (1 of 2)] Future Scheduled AAA Screen [code = [employer] [facility] AAA Screen] of Medicine Future Scheduled PNEUMOVAX >=65 [facility] Test (PPSV23) [code = of Medicine PNEUMOVAX >=65 (PPSV23)] Future Scheduled COLON CANCER [facility] [employer] Test SCREENING: of Medicine COLONOSCOPY [...] of Medicine Future Scheduled ABSOLUTE LYMPHOCYTE Ordered: [employer] Test COUNT [code = NOCPT] 09/27/2020 of Medi cine Future Scheduled COMPREHENSIVE Ordered: [facility] Test METABOLIC PANEL [code 09/27/2020 of Med icine = 33696-0] Future Scheduled IMMUNOGLOBULIN Ordered: [facility] l[facility] Test PROFILE [code = 09/27/2020 of Medicine 79113-9] Future Scheduled TETANUS SHOT (ADULT) [employer] Test [code = TETANUS SHOT of Medi cine (ADULT)] Future Scheduled HEPATITIS C SCREENING [facility] Test [code = HEPATITIS C of Medic ine SCREENING] Future Scheduled ZOSTER VACCINE (1 of [employer] Test 2) [code = ZOSTER of Medicin e VACCINE (1 of 2)] Future Scheduled AAA Screen [code = [employer] Test AAA Screen] of Medicine Future Scheduled PNEUMOVAX >=65 [facility] Test (PPSV23) [code = of Medicine PNEUMOVAX >=65 (PPSV23)] Future Scheduled COLON CANCER [facility] [employer] Test SCREENING: of Medicine COLONOSCOPY [code = COLON CANCER SCREENING: COLONOSCOPY] Future Scheduled MEDICARE AWV [facility] [employer] Test (Initial) [code = of Medicin e MEDICARE AWV (Initial)] Future Scheduled FLU VACCINE > 6 [employer] [facility] [employer] Test MONTHS [code = FLU of Medici ne VACCINE > 6 MONTHS] Future Scheduled FALL SCREEN [code = [employer] Test FALL SCREEN] of Medicine Future Scheduled TETANUS SHOT (ADULT) [employer] Test [code = TETANUS SHOT of Medi cine (ADULT)] Future Scheduled Hepatitis C screening [employer] Test (procedure) [code = of Medic ine 999565019] Future Scheduled ZOSTER VACCINE (1 of [employer] Test 2) [code = ZOSTER of Medicin e VACCINE (1 of 2)] Future Scheduled Abdominal aortic [facility] Test aneurysm screening of Medici ne (procedure) [code = 545447831] Future Scheduled PNEUMOVAX >=65 [facility] Test (PPSV23) [code = of Medicine PNEUMOVAX >=65 (PPSV23)] Future Scheduled Screening for [facility] Test malignant neoplasm of of Med icine colon (procedure) [code = 970108370] Future Scheduled FLU VACCINE > 6 [facility] Test MONTHS [code = FLU of Medici ne VACCINE > 6 MONTHS] Future Scheduled FALL SCREEN [code = [employer] Test FALL SCREEN] of Medicine Future Scheduled IMMUNOGLOBULIN Ordered: [facility] llege Test PROFILE [code = 03/04/2019 of [facility] 14761-0] Future Scheduled MEDICARE AWV [code = [employer] Test MEDICARE AWV] of Medicine Future Scheduled TETANUS SHOT (ADULT) [employer] Test [code = TETANUS SHOT of Medi cine (ADULT)] Future Scheduled HEPATITIS C SCREENING [employer] Test [code = HEPATITIS C of Medic ine SCREENING] Future Scheduled AAA Screen [code = [facility] Test AAA Screen] of Medicine Future Scheduled PNEUMOVAX >=65 [facility] Test (PPSV23) [code = of Medicine PNEUMOVAX >=65 (PPSV23)] Future Scheduled PREVNAR >= 65 (PCV13) [employer] Test [code = PREVNAR >= 65 of Med icine (PCV13)] Future Scheduled COLON CANCER [facility] [employer] Test SCREENING: of Medicine COLONOSCOPY [code = COLON CANCER SCREENING: COLONOSCOPY] Future Scheduled FLU VACCINE > 6 [facility] Test MONTHS [code = FLU of Medici ne VACCINE > 6 MONTHS] Future Scheduled FALL SCREEN [code = [employer] Test FALL SCREEN] of Medicine Future Scheduled CULTURE, 2 Occurrences [facility] Test URINE/SENSITIVITY ON starting of Medi cine ALL [code = 52047-0] 10/12/2019 until 10/11/2020 Future Scheduled US RENAL BILATERAL 1 Occurrences [employer] Test [code = 73334] starting of Medicine 10/12/2019 until 10/11/2020 Future Scheduled VIDEO URODYNAMICS 1 Occurrences [facility] Test [code = 50985] starting of Medicine 10/12/2019 until 10/11/2020 Encounters Start End Encounter Admission Attending Care Care Encounter Source Date/Time Date/Time Type Type Clinicians Facility Department ID 2021-10-04 Outpatient [facility] [id number] Common 14:22:01 [facility] 2021-08-22 Outpatient [facility] Common 14:32:14 [facility] 2021-05-05 Outpatient [facility] Surgery [id number] SLE 19:55:29 , ANETTE 2021-05-05 Outpatient [facility] Surgery [id number] SLE 03:19:02 , ANETTE 2021-12-12 2021-12-12 Outpatient ELVA KHOURY [facility] [id number] Hay 00:00:00 00:00:[address] 2021-12-03 2021-12-03 Outpatient TODD CHANDRAKANT [facility] [id number] Hay 00:00:00 00:00:[address] 2021-11-29 2021-11-29 Outpatient TODD CHANDRAKANT [facility] [id number] Hay 00:00:00 00:00:[address] 2021-10-25 2021-10-25 Outpatient [facility] [id number] [facility] 07:29:15 23:59:00 Poojain e 2021-10-15 2021-10-15 Office PHONG Lim 1.2.840.114 [id number] [facility] 10:30:00 11:30:50 Visit Polina Baptiste AMBULATOR [id number] College Y 0.2.7.2.686 [id number] Medi geno 830 e 2021-10-04 2021-10-04 Outpatient TODD CHANDRAKANT [facility] 021 [id number] Hay 00:00:00 00:00:[address] 2021-10-03 2021-10-03 Outpatient CHANDRAKANT BROOKS [facility] [id number] Hay 00:00:00 00:00:00 789 Method i 2021-09-21 2021-09-21 Outpatient CHANDRAKANT BROOKS [facility] [id number] Hay 00:00:00 00:00:[address] 2021-09-18 2021-09-18 Outpatient BHARGAVI, [facility] [id number] Hay 00:00:00 00:00:00 JASON 244 Method i 2021-07-03 2021-07-03 Outpatient SNOQUALMIE, [facility] [id number] Hay 00:00:00 00:00:00 SP 800 Method i 2021-04-26 2021-04-26 Outpatient [facility] [id number] [facility] 07:28:23 23:59:00 Norberto Medicin e 2021-04-16 2021-04-16 Office Carina PHONG 1.2.840.114 [id number] [facility] 09:55:21 10:48:40 Visit Polina Oliva AMBULATOR [id number] College Y 0.2.7.2.686 [id number] Medi geno 830 e 2021-04-04 2021-04-04 Outpatient SNOQUALMIE, [facility] [id number] [facility] 00:00:00 00:00:00 SP 780 Method i 2021-03-08 2021-03-08 Outpatient SNOQUALMIE, [facility] [id number] Hay 00:00:00 00:00:00 SP 152 Method i 2021-02-22 2021-02-22 Outpatient [facility] [id number] [facility] 00:00:00 00:00:00 2021-02-06 2021-02-06 Outpatient BHARGAVI, [facility] [id number] Hay 00:00:00 00:00:00 JASON 037 Method i 2021-02-06 2021-02-06 Outpatient SNOQUALMIE, [facility] [id number] Hay 00:00:00 00:00:00 SP 270 Method i 2021-01-31 2021-01-31 Outpatient SNOQUALMIE, [facility] [id number] [facility] 00:00:00 00:00:00 SP [address] 2021-01-31 2021-01-31 Outpatient EDD [facility] [id number] [facility] 00:00:00 00:00:00 SP [address] 2021-01-18 2021-01-18 Outpatient EDD [facility] [id number] [facility] 00:00:00 00:00:00 SP [address] 2021-01-10 2021-01-10 Outpatient EDD [facility] [id number] [facility] 00:00:00 00:00:00 SP 692 Method i 2020-12-28 2020-12-28 Outpatient CHANDRAKANT BROOKS [facility] [id number] Hay 00:00:00 00:00:00 004 Method i 2020-12-28 2020-12-28 Outpatient EDD [facility] [id number] Hay 00:00:00 00:00:00 SP 011 Method i 2020-12-19 2020-12-19 [facility] [id number] [facility] 00:00:00 00:00:00 2020-12-18 2020-12-18 Office [facility] 1.2.840.114 [id number] [facility] 08:49:46 14:46:06 Visit , Anette AMBULATOR [id number] College Y 0.2.7.2.686 of [id number] Medi geno 300 e 2020-12-18 2020-12-18 Outpatient EDD [facility] [id number] [facility] 00:00:00 00:00:00 SP [address] 2020-12-15 2020-12-15 Outpatient EL [facility] [id number] [facility] 00:00:00 00:00:00 2020-12-15 2020-12-15 Outpatient EL SLE SLE [id number] [facility] 00:00:00 00:00:00 2020-11-13 2020-11-13 Outpatient CARINA [facility] SLE [id number] [facility] 00:00:00 00:00:00 POLINA 2020-11-13 2020-11-13 Outpatient STEPHENIE CARINA SLE SLE [id number] [facility] 00:00:00 00:00:00 POLINA 2020-11-09 2020-11-09 Office PHONG Lim [id number] [facility] 10:07:36 16:15:46 Visit Polina Baptiste AMBULATOR [id number] [place] Y 0.2.7.2.686 [id number] [facility] 830 e 2020-10-31 2020-11-03 Inpatient BRET, [facility] [id number] Hay 00:00:00 00:00:00 WARREN 654 Method i 2020-10-18 2020-10-18 [facility] [id number] [facility] 00:00:00 00:00:00 JASON 806 Method i 2020-10-13 2020-10-13 [facility] [id number] [facility] 00:00:00 00:00:00 JASON 333 Method i 2020-10-13 2020-10-13 [facility] [id number] [facility] 00:00:00 00:00:00 JASON 716 Method i 2020-10-06 2020-10-06 Laboratory Lab, [facility] 1.2.840.114 [id number] 14:30:14 14:50:14 Only Fam Pob I Health 350.1.13.10 [place] 4.2.7.2.686 Professio [id number] [place] [address] [address] 2020-10-06 2020-10-06 Laboratory Lab, [facility] Fam Pob I [facility] 1.2. 840.114 [id number] Univers 14:30:14 14:50:14 Only [facility] 350.1.13.10 ity [facility] 4.2.7.2.686 Lino as Professio [id number] Mn dical [address] Office Building One 2020-10-06 2020-10-06 Outpatient R [facility] [id number] [facility] 14:40:00 14:40:00 SANJUANITA [facility] 2020-10-06 2020-10-06 Letter Doctor SAL 1.2.840.114 [id number] [facility] 00:00:00 00:00:00 (Out) Unassigned, NISHANT 350.1.13.10 ity of [facility] 4.2.7.2.686 Lino as [id number] [facility] [address] 2020-10-06 2020-10-06 Letter Doctor DORON 1.2.840.114 [id number] [facility] 00:00:00 00:00:00 (Out) Unassigned, NISHANT 350.1.13.10 ity of [facility] 4.2.7.2.686 Lino as [id number] [facility] [address] 2020-10-06 2020-10-06 Letter Doctor DORON 1.2.840.114 [id number] 00:00:00 00:00:00 (Out) Unassigned, NISHANT 350.1.13.10 [facility] 4.2.7.2.686 [id number] [facility] 2020-10-06 2020-10-06 Letter Doctor SAL 1.2.840.114 [id number] 00:00:00 00:00:00 (Out) Unassigned, NISHANT 350.1.13.10 [facility] 4.2.7.2.686 [id number] 2020-10-05 2020-10-05 Outpatient [facility] [id number] [facility] 00:00:00 00:00:00 2020-10-05 2020-10-05 Outpatient ELVA KHOURY [facility] [id number] [place] 00:00:00 00:00:[address] 2020-09-27 2020-09-27 Office PHONG Lim 1.2.840.114 [id number] [facility] 09:48:17 11:45:41 Visit Polina Baptiste AMBULATOR 350.1.13.21 College Y 0.2.7.2.686 of [id number] [facility] geno 830 e 2020-09-25 2020-09-25 Office Ayaka DARLING 1.2.840.114 [id number] [facility] 08:52:56 11:06:52 Visit Anette AMBULATOR 350.1.13.21 College Y 0.2.7.2.686 of [id number] [facility] geno 300 e 2020-09-23 2020-09-23 Outpatient LIZZETTEBEN, [facility] [id number] [address] 00:00:00 00:00:00 TANNER [address] 2020-09-13 2020-09-13 Outpatient CARINA, SLE SLE [id number] SLEH 00:00:00 00:00:00 POLINA 2020-09-13 2020-09-13 Outpatient EL CARINA, SLEH SLE [id number] SLEH 00:00:00 00:00:00 POLINA 2020-09-08 2020-09-08 Outpatient EL SLE SLE [id number] SLEH 00:00:00 00:00:00 2020-09-02 2020-09-02 Outpatient ASKED, NO [facility] [id number] Hay 00:00:00 00:00:[address] 2020-08-08 2020-08-08 Outpatient BURK, [facility] [id number] Hay 00:00:00 00:00:00 JASON [address] 2020-07-13 2020-07-14 Outpatient BURK, [facility] [id number] Hay 00:00:00 00:00:00 JASON [address] 2020-07-10 2020-07-10 Outpatient BURK, [facility] [id number] Hay 00:00:00 00:00:00 JASON [address] 2020-07-04 2020-07-04 Outpatient BURK, [facility] [id number] Hay 00:00:00 00:00:00 JASON [address] 2020-06-27 2020-06-27 Outpatient BURK, [facility] [id number] Hay 00:00:00 00:00:00 JASON [address] 2020-06-26 2020-06-26 Outpatient BURK, [facility] [id number] Hay 00:00:00 00:00:00 JASON [address] 2020-06-20 2020-06-20 Outpatient BURK, [facility] [id number] Hay 00:00:00 00:00:00 JASON [address] 2020-04-25 2020-04-25 Outpatient BURK, [facility] [id number] Hay 00:00:00 00:00:00 JASON [address] 2020-03-07 2020-03-07 Outpatient SNOQUALMIE, [facility] [id number] [address] [place] [address] 00:00:00 00:00:00 SP [facility] [facility] 2019-10-12 2019-10-12 Office PHONG Valdez [id number] [facility] 09:55:07 11:22:50 Visit Tanner AMBULATOR 350.1.13.21 College P Y 0.2.7.2.686 of [id number] Medi geno 300 e 2019-09-21 2019-09-21 Office PHONG Lim [id number] [facility] 13:24:19 14:41:19 Visit Polina Baptiste AMBULATOR 350.1.13.21 College Y 0.2.7.2.686 of [id number] Medi geno 830 e 2019-08-23 2019-08-23 Office Ayaka [facility] [id number] [facility] 11:42:57 14:11:07 Visit Anette AMBULATOR 350.1.13.21 College Y 0.2.7.2.686 of [id number] Medi geno 300 e 2019-06-08 2019-06-08 Outpatient BHARGAVI [facility] [id number] [address] 00:00:00 00:00:00 JASON 364 Method i 2019-03-04 2019-03-04 Office PHONG Lim [id number] [id number] [facility] 13:15:29 14:58:57 Visit Polina Baptiste AMBULATOR 350.1.13.21 College Y 0.2.7.2.686 of [id number] Medi geno 830 e Results Test Description Test Time Test Comments Results Result Comments Source SARS-CoV-2 (COVID-19) RNA [Presence] in Respiratory sp ecimen by 2021-11-29 20:47:05 NETTE with probe detection Test Item Value Reference Range Interpretation Comme nts SARS-CoV-2 (COVID-19) RNA [Presence] in Respiratory specimen by Not detected NETTE with probe detection (test code = 75538-1) Whether patient is employed in a healthcare setting (test code = Un known 34452-8) Whether the patient has symptoms related to condition of interest U nknown (test code = 39745-3) Whether the patient was hospitalized for condition of interest Unkn own (test code = 42546-9) Whether the patient was admitted to intensive care unit (ICU) for U nknown condition of interest (test code = 76151-7) Whether patient resides in a congregate care setting (test code = U nknown 71215-3) status (test code = 01394-0) Unknown Date and time of symptom onset (test code = 55214-1) Unknown SARS-CoV-2 (COVID-19) RNA [Presence] in Respiratory specimen by NETTE with probe [id number] 18:28:56 Test Item Value Reference Range Interpretation Comments SARS-CoV-2 (COVID-19) RNA Not detected [Presence] in Respiratory specimen by NETTE with probe detection (test code = 38032-7) Whether patient is employed in a Unknown healthcare setting (test code = 86883-1) Whether the patient has symptoms Unknown related to condition of interest (test code = 55771-7) Whether the patient was Unknown hospitalized for condition of interest (test code = 94978-8) Whether the patient was admitted Unknown to intensive care unit (ICU) for condition of interest (test code = 30192-9) Whether patient resides in a Unknown congregate care setting (test code = 02237-1) status (test code = Unknown 82875-0) Date and time of symptom onset Unknown (test code = 22676-3) SARS-CoV-2 (COVID-19) RNA [Presence] in Respiratory specimen by NETTE with probe [id number] 16:54:02 Test Item Value Reference Range Interpretation Comments SARS coronavirus RNA [Presence] Not detected in Isolate by NETTE with probe detection (test code = 72979-6) Whether patient is employed in a Unknown healthcare setting (test code = 96603-8) Whether the patient has symptoms Unknown related to condition of interest (test code = 56679-5) Whether the patient was Unknown hospitalized for condition of interest (test code = 26105-5) Whether the patient was admitted Unknown to intensive care unit (ICU) for condition of interest (test code = 02793-5) Whether patient resides in a Unknown congregate care setting (test code = 88254-4) status (test code = Unknown 29390-5) Date and time of symptom onset Unknown (test code = 73218-1) SARS-CoV-2 (COVID-19) RNA [Presence] in Respiratory specimen by NETTE with probe [id number] 16:54:02 Test Item Value Reference Range Interpretation Comments SARS-CoV-2 (COVID-19) RNA Not detected [Presence] in Respiratory specimen by NETTE with probe detection (test code = 64068-4) Whether patient is employed in a Unknown healthcare setting (test code = 89424-3) Whether the patient has symptoms Unknown related to condition of interest (test code = 44945-8) Whether the patient was Unknown hospitalized for condition of interest (test code = 21299-0) Whether the patient was admitted Unknown to intensive care unit (ICU) for condition of interest (test code = 55914-8) Whether patient resides in a Unknown congregate care setting (test code = 46101-0) status (test code = Unknown 23503-8) Date and time of symptom onset Unknown (test code = 30511-6) SARS-CoV-2 (COVID-19) RNA [Presence] in Respiratory specimen by NETTE with probe [id number] 21:45:50 Test Item Value Reference Range Interpretation Comments SARS-CoV-2 (COVID-19) RNA Not detected Not-Detected [Presence] in Respiratory specimen by NETTE with probe detection (test code = 60622-2) Whether patient is employed in a healthcare setting (test code = 92081-1) Whether the patient has symptoms related to condition of interest (test code = 98902-5) Patient was hospitalized because of this condition (test code = 90542-2) Whether the patient was admitted to intensive care unit (ICU) for condition of interest (test code = 67009-1) Whether patient resides in a congregate care setting (test code = 73687-0) FL, FLUORO, NON-SPECIFIC, UP TO 1 [id number] 09:10:00Reason for exam:- >RADIOFREQUENCY ABLATION OF GASSERIAN GANGLION [facility] : 1945 Sex: MFluoroscopic unit utilized for a procedure performed in the OR. No interpretation was requested. Refer to the operative report for findings. Refer to PACS for patient radiation dose information.SARS-COV2/RT-PCR ([facility])2020-12-16 07:16:00 Test Item Value Reference Range Interpretation Comments SARS-COV2/RT-PCR (test Negative Not Detected, Negative, code = 3331348) See external report for linked test SARS-COV-2 PERFORMING LAB [facility] (test code = 1349687) Negative result for this test determines that [...] the Staples SARS-CoV-2 assay.Fact Sheet for Healthcare Providers:https://www.Clinicbook.staples/stephanie/ KW_DBCO-YgR-5_JFZ_Dwnu_Bgtou_89-892438.pdfFact Sheet for Healthcare Patients:https://www.Clinicbook.AC Holdco penny/stephanie/SG_VLUD-YhW-1_Ensrqfd_Egno_Vhdmy_OC_13-672105S7.pdfPerforming Laboratory:[place] [id number] [place] [address] URINALYSIS [id number] 15:50:00 Test Item Value Reference Range Interpretation Comments RBC UA (BEAKER) (test code = 519) 12 /HPF WBC UA (BEAKER) (test code = 520) 5 /HPF MUCUS (BEAKER) (test code = 1574) Many SQUAMOUS EPITHELIAL (BEAKER) (test 1 /HPF code = 516) HYALINE CASTS (BEAKER) (test code = 6 /LPF 514) CALCIUM OXALATE CRYSTALS (BEAKER) Few (test code = 518) Funeral Planner ID - techURINALYSIS WITH MICROSCOPIC IF [id number] 15:30:00 Test Item Value Reference Range Interpretation [...] = 463) SOURCE(BEAKER) (test code = 2795) Funeral Planner ID - [auto]BASIC METABOLIC [id number] 15:22:00 Test Item Value Reference Range Interpretation [...] S NOT APPLICABLE FOR DIALYSIS PATIEN TS. Funeral Planner ID - [id number] 15:07:00 Test Item Value Reference Range Interpretation Comments PARTIAL THROMBOPLASTIN TIME 32.0 seconds 22.5-36.0 (BEAKER) (test code = 760) PROTHROMBIN TIME/[id number] 15:06:00 Test Item Value Reference Range Interpretation Comments PROTIME (BEAKER) 13.9 seconds 11.9-14.2 (test code = 759) INR (BEAKER) (test 1.11 See_Comment [Automat ed message] code = 370) The system Theravasc generated this result transmitted ref erence range: [...] (test code = 2801) RAD, CHEST, 2 [id number] 14:53:00Reason for exam:->preop testing [facility] : 1945 Sex: MFINAL REPORT [...] MDReport Verified Date/Time: 12/15/2020 14:53:22 Reading Location: [facility] Radiology Reading Room BK-XfQ-6 (COVID-19) RNA [Presence] in Respiratory specimen by NETTE with probe [id number] 15:18:59 Test Item Value Reference Range Interpretation Comments SARS-CoV-2 (COVID-19) RNA Not detected Not-Detected [Presence] in Respiratory specimen by NETTE with probe detection (test code = 75428-9) SARS-COV2/RT-PCR ([facility])2020-09-08 17:47:00 Test Item Value Reference Range Interpretation Comments SARS-COV2/RT-PCR (test Negative Not Detected, Negative, code = 6406339) See external report for linked test SARS-COV-2 PERFORMING LAB [facility] (test code = 9005504) Negative result for this test determines that [...] 564(g) of the Act.Fact Sheet for Healthcare Providers:https://www.Algorithmics.Exogenesis/sites/default/files/product/documents/Fact_Shee d_HY_Dcfkcgaia_Kpdp_VBUD-KrU-8.pdfFact Sheet for Healthcare Patients:https://www.Algorithmics.com/sites/default/files/product/ documents/Pcog_Clyxh_Pqeftwwl_Biee_OWCX-FbR-3.pdfPerforming Laboratory:[facility], [place] [address]SDQ, CHEST, 2 VIEWS 2020-09-08 12:56:00Reason for exam:->Trigeminal neuralgia [facility] : 1945 Sex: MFINAL [...] achest CT is recommended. Signed: Zenon Li Verified Date/Time: 09/08/2020 12:56:25 E lectronically signed by: ZENON LI MD on 09/08/2020 12:56 PMPROTHROMBIN TIME/[id number] 11:09:00 Test Item Value Reference Range Interpretation Comments PROTIME (BEAKER) 14.1 seconds 11.9-14.2 (test code = 759) INR (BEAKER) (test 1.12 See_Comment [Automat ed message] code = 370) The system Theravasc generated this result transmitted ref erence range: <=5.90. The reference range was not used to int erpret this result as normal/abnormal . Effective 12/23/2018: PT Reference Range ChangeNew: 11.9-14.2 Previous: 11.7- 14.7RECOMMENDED COUMADIN/WARFARIN INR THERAPY RANGESSTANDARD DOSE: 2.0-3.0 Includes: PROPHYLAXIS for venous thrombosis, systemic embolization; TREATMENT for venous thrombosis and/or pulmonary embolus.HIGH RISK: Target INR is2.5-3.5 for patients wiht mechanical heart valves.[id number] 11:09:00 Test Item Value Reference Range Interpretation Comments PARTIAL THROMBOPLASTIN TIME 25.8 seconds 22.5-36.0 (BEAKER) (test code = 760) BASIC METABOLIC [id number] 11:07:00 Test Item Value Reference Range Interpretation [...] S NOT APPLICABLE FOR DIALYSIS PATIEN TS. Funeral Planner ID - PIAYA LCBC W/PLT COUNT & AUTO [id number] 10:57:00 Test Item Value Reference Range Interpretation [...] in Respiratory specimen by NETTE with probe [id number] 20:54:07 Test Item Value Reference Range Interpretation Comments SARS-CoV-2 (COVID-19) RNA Not detected Not-Detected [Presence] in Respiratory specimen by NETTE with probe detection (test code = 38254-4) FL, FLUORO, NON-SPECIFIC, UP TO 1 [id number] 09:54:00Reason for exam:- >RADIOFREQUENCY ABLATION OF TRIGEMINAL NERVEFINAL REPORT A fluoroscopic unit was utilized for a procedure performed in the operating room. No interpretation was requested. Please refer to the operative report regarding findings. Please refer to PACS for patient radiation dose information. Signed: Ace Longo Verified Date/Time: 08/31/2019 09:54:29 Reading Location: [facility] Radiology Reading Room BASIC METABOLIC [id number] 07:46:00 Test Item Value Reference Range Interpretation [...] S NOT APPLICABLE FOR DIALYSIS PATIEN TS. Funeral Planner ID - ZORAIDA [id number] 07:13:00 Test Item Value Reference Range Interpretation Comments PARTIAL THROMBOPLASTIN TIME 33.7 seconds 22.5-36.0 (BEAKER) (test code = 760) PROTHROMBIN TIME/[id number] 07:12:00 Test Item Value Reference Range Interpretation [...] mechanical heart valves.CBC W/PLT COUNT & AUTO [id number] 07:06:00 Test Item Value Reference Range Interpretation [...] MR, SPINE, CERVICAL, WITHOUT / WITH IV [id number] 11:05:00FINAL REPORT Exam: Cervical spine MRI without with IV contrastHistory: 73-year-old male with multiple sclerosisComparison studies: Cervical spine MRI 03/26/2018. Technique:Precontrast sagittal T1, T2 and inversion recovery, axial T1 and T2 cervical and thoracic. Postcontrast axial and sagittal G9Uphfdqlfgnz contrast: 9 cc of Gadavist. Findings: Several pulse sequences are somewhat limited by artifacts related to patient motion. Spinal Cord: Normal in size and signal from the foramen magnum through T1. T2 lesion load: No gross new lesions. Multiple scattered demyelinating lesions. Host Hostess lesions are grossly unchanged and described as [...] spine MRI of 03/26/2018. Signed: Yumiko Abad Verified Date/Time: 02/16/2019 11:05:03 Reading Location: [facility] Reading Room [address] [place] [address] [facility] signed by: Yumiko Abad on 02/16/2019 11:05 AMMR, BRAIN, WITHOUT / WITH IV [id number] 10:50:00FINAL REPORT Exam: Brain MRI without with [...] Abad Verified Date/Time: 02/16/2019 10:50:04 Reading Location: [facility] Reading Room [address] [place] [address] POCT-CREATININE 2019-02-15 10:10:00 Test Item Value Reference Range Interpretation Comments POC-CREATININE 1.2 mg/dL 0.6-1.3 TESTED AT [facility] 7200 ([facility]) (test VIKI BLD G A code = 1859) [facility] 7703 0 POC-EGFR 60 mL/min/1.73M2 ([facility]) (test code = 1860) [facility] IN OR/30 MINUTE [id number] 13:40:00Reason for exam:- >Trigeminal NeuralgiaFINAL REPORT Fluoroscopy 5 views intraoperative 07/17/2018 1:37 PM CLINICAL HISTORY: Instrument localization COMPARISON: None available IMPRESSION: Please correlate imaging report findings with the procedure note prepared by Dr. Duran, as an intra-procedure imaging consultation was not requested. Reported fluoroscopy time: 49.4 seconds. Signed: Christopher Sarkar Verified Date/Time: 07/17/2018 13:40:25 Reading Location: [facility] Reading Room
--- NOTE | 2021-12-19 13:24 | EDPHYS ---
Physician Documentation [facility] Name: Terrance Monroy Age: 76 yrs Sex: Male : 1945 Arrival Date: 12/19/2021 Time: 13:11 Bed Waiting Private MD: ED Physician Remington Kelly HPI: 12/19 13:24 This 76 yrs old Male presents to ER via Wheelchair with complaints of Suture Removal. jr8 13:24 The patient has sutures on the face. Previous treatment: The patient was initially jr8 treated 12 day(s) ago. Sutures/vania progress: The patient has no c/o's. The wound is well-healing with no redness, swelling, discharge, or dehiscence reported. The patient has not experienced similar symptoms in the past. The patient has not recently seen a physician. Historical: - PMHx: 13:18 Atrial Fib; atrial flutter; back spasms; back surgery; Cerebrovascular accident; High iw Cholesterol; Hypertension; Hypothyroidism; MS; TMJ; Trigeminal nueralgia; ulcerative colitis; ROS: 13:24 Constitutional: Negative for fever, chills, and weight loss, Cardiovascular: Negative jr8 for chest pain, palpitations, and edema, Respiratory: Negative for shortness of breath, cough, wheezing, and pleuritic chest pain, MS/Extremity: Negative for injury and deformity, Skin: Negative for injury, rash, and discoloration, Neuro: Negative for headache, weakness, numbness, tingling, and seizure. Exam: 13:24 Constitutional: This is a well developed, well nourished patient who is awake, alert, jr8 and in no acute distress. 13:24 Head/Face: Normocephalic, atraumatic. Cardiovascular: Regular rate and rhythm with a normal S1 and S2. No gallops, murmurs, or rubs. Normal PMI, no JVD. No pulse deficits. Respiratory: Lungs have equal breath sounds bilaterally, clear to auscultation and percussion. No rales, rhonchi or wheezes noted. No increased work of breathing, no retractions or nasal flaring. MS/ Extremity: Pulses equal, no cyanosis. Neurovascular intact. Full, normal range of motion. Neuro: Awake and alert, GCS 15, oriented to person, place, time, and situation. Motor strength 5/5 in all extremities. Sensory grossly intact. 13:24 Skin: Wound recheck: Suture laceration closure: the wound is healing well, the edges are well approximated, no evidence of dehiscence, no drainage, no erythema, no swelling. Vital Signs: 13:17 BP 116 / 77; Pulse 58; Resp 16; Temp 97.4; Pulse Ox 100% on R/A; iw Procedures: 13:24 Suture/Staple removal: Removed 4 sutures, from face, site appears well healed, Patient jr8 tolerated well. MDM: 13:22 Patient medically screened. jr8 13:23 Data reviewed: vital signs, nurses notes, and as a result, I will discharge patient. jr8 Data interpreted: Pulse oximetry: on room air is 100 %. Counseling: I had a detailed discussion with the patient and/or guardian regarding: the historical points, exam findings, and any diagnostic results supporting the discharge/admit diagnosis, the need for outpatient follow up, a family practitioner, to return to the emergency department if symptoms worsen or persist or if there are any questions or concerns that arise at home. Administered Medications: No medications were administered Disposition: 13:49 Co-signature as Attending Physician, Remington Kelly MD. rn Disposition Summary: 12/19/21 13:24 Discharge Ordered Location: Home jr Problem: new jr8 Symptoms: are resolved jr8 Condition: Stable jr8 Diagnosis - Encounter for removal of sutures jr8 Followup: jr8 - With: Private Physician - When: As needed - Reason: Continuance of care, Re-evaluation by your physician Discharge Instructions: - Discharge Summary Sheet jr8 - Suture Removal, Care After jr8 Forms: - Medication Reconciliation Form jr8 - Thank You Letter jr8 - Antibiotic Education jr8 - Prescription Opioid Use jr8 Signatures: Farzana Iglesias RN RN iw Nieto, Roman, MD MD rn Roszak, Josh, PA PA jr8
--- NOTE | 2021-12-19 13:24 | ER ---
Nurse's Notes [facility] Name: Terrance Monroy Age: 76 yrs Sex: Male : 1945 Arrival Date: 12/19/2021 Time: 13:11 Bed Waiting Private MD: Diagnosis: Encounter for removal of sutures Presentation: 12/19 13:17 Chief complaint: Patient states: needs sutures removed from right eyebrow area. Ebola iw Screen: Patient negative for fever greater than or equal to 101.5 degrees Fahrenheit, and additional compatible Ebola Virus Disease symptoms Patient denies exposure to infectious person. Patient denies travel to an Ebola-affected area in the 21 days before illness onset. No symptoms or risks identified at this time. Risk Assessment: Do you want to hurt yourself or someone else? Patient reports no desire to harm self or others. 13:17 Method Of Arrival: Wheelchair iw 13:17 Acuity: RADHA 4 iw 13:21 Coronavirus screen: At this time, the client does not indicate any symptoms associated iw with coronavirus-19. Initial Sepsis Screen: Does the patient meet any 2 criteria? No. Patient's initial sepsis screen is negative. Does the patient have a suspected source of infection? No. Patient's initial sepsis screen is negative. Onset of symptoms was December 19, 2021. Triage Assessment: 13:21 General: Behavior is calm, cooperative. iw Historical: - PMHx: 13:18 Atrial Fib; atrial flutter; back spasms; back surgery; Cerebrovascular accident; High iw Cholesterol; Hypertension; Hypothyroidism; MS; TMJ; Trigeminal nueralgia; ulcerative colitis; Screenin:21 Abuse screen: Denies threats or abuse. Denies injuries from another. Nutritional iw screening: No deficits noted. Tuberculosis screening: No symptoms or risk factors identified. Fall Risk Fall in past 12 months (25 points). Assessment: 13:19 General: Appears in no apparent distress. Pain: Denies pain. iw Vital Signs: 13:17 BP 116 / 77; Pulse 58; Resp 16; Temp 97.4; Pulse Ox 100% on R/A; iw ED Course: 13:11 Patient arrived in ED. rg4 13:11 Mayito Noonan PA is PHCP. jr8 13:12 Remington Kelly MD is Attending Physician. jr8 13:17 Triage completed. iw 13:18 Arm band placed on. iw 13:19 Farzana Iglesias, RN is Primary Nurse. iw 13:19 No provider procedures requiring assistance completed. Patient did not have IV access iw during this emergency room visit. Administered Medications: No medications were administered Outcome: 13:21 Discharged to home via wheelchair, with family. iw 13:21 Condition: good 13:21 Discharge instructions given to patient. 13:21 No charge visit due to suture removal. 13:24 Discharge ordered by . bib 13:30 Patient left the ED. iw Signatures: Farzana Iglesias, RN RN iw Mayito Noonan PA PA jr8 Harleen Singh rg4
[2021-12-19 13:49] VITALS: BP 116/77; TEMP 97.4; O2SAT 100
== END 2021-12-19 13:30 | disposition home or self-care (01) ==
LOC: ER 13:10
DX: Z48.02 Encounter for removal of sutures (principal)

== ENCOUNTER 2022-08-22 18:06 | Emergency (ER) | payer OTHER ==
--- OUTSIDE RECORDS SUMMARY | 2022-08-22 18:15 | XMS REPORT | Continuity of Care Document ---
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 (two) Center tablet times daily . CLONAZEPAM Yes .25mg Take 0.[address] ORAL 8-16 mg by [facility] 10:51: mouth 2 Medical 00 (two) Center times daily as needed. modafinil 0 Yes 200mg Q.5D Take [address] [facility] (PROVIGIL) 8-16 mg by [facility] 200 MG 10:51: mouth 2 Medical tablet 00 (two) Center times daily Patient can stop Provigil the day before surgery, But because of his Multiple Sclerosis needs to take it up until that time.. cholecalcif Yes 5000U QD Take 5,[address] [facility] kerline, 8-16 Units by [facility] vitamin D3, 10:51: mouth Medic al 5,000 unit 00 daily. Center Tab ocrelizumab Yes 1{dose} Inject [address] [facility] (OCREVUS) 8-16 Dose [facility] 30 mg/mL 10:51: intravenou Med ical Soln 00 sly every Center 6 (six) months. olmesartan 0 Yes 5mg QD Take [address] [facility] [address] [facility] (BENICAR) 5 8-16 by [facility] MG tablet 10:51: nightly . Med ical 00 Center DULoxetine Yes 20mg QD Take [address] (CYMBALTA) 8-16 by [facility] 20 MG 10:51: daily. Medical capsule 00 [place] digoxin Yes 125ug QD Take [facility] (LANOXIN) 8-16 mcg by [facility] 0.125 MG 10:51: mouth Medical tablet 00 nightly . [place] alfuzosin Yes 10mg QD Take [address] [facility] [address] [facility] (UROXATRAL) 8-16 by mouth [facility] 10 mg 24 hr 10:51: daily. Medi darren tablet 00 [place] amantadine Yes 100mg QD Take [address] HCL 8-16 mg by [facility] (SYMMETREL) 10:51: mouth Medic al 100 mg 00 daily. [place] capsule latanoprost Yes 1[drp] QD Place [address] (XALATAN) 8-16 drop into [facility] 0.005 % 10:51: both eyes Medic al ophthalmic 00 nightly . Cent er solution amiodarone Yes 150mg QD Take [address] (PACERONE) 8-16 mg by [facility] 100 MG 10:51: mouth Medical tablet 00 every Center evening . furosemide Yes 40mg Take [address] (LASIX) 40 8-16 by mouth 2 [facility] MG tablet 10:51: (two) Medical 00 times Center daily as needed . potassium Yes 10meq Take [address] [facility] chloride SA 8-16 mEq by [facility] (K-DUR,KLOR 10:51: mouth as Me dical -CON) 10 00 needed . [place] MEQ tablet levothyroxi Yes 175ug Take [address] ne 8-16 mcg by [facility] (SYNTHROID, 10:51: mouth Medic al LEVOTHROID) 00 Every Center 125 MCG morning on tablet an empty stomach . mesalamine Yes 1200mg Q.5D Take 1,[address] [address] (LIALDA) 8-16 mg by [facility] 1.2 gram EC 10:51: mouth 2 Med ical tablet 00 (two) Center times daily. esomeprazol Yes 40mg QD Take [address] [facility] (NEXIUM) 8-16 by mouth [facility] 40 MG 10:51: daily. Medical capsule 00 [place] dabigatran Yes 150mg Q.5D Take [address] (PRADAXA) 8-16 mg by [facility] 150 mg Cap 10:51: mouth 2 Medi darren capsule 00 (two) Center times daily Per cardiologi st who will be calling the patient . pravastatin Yes 80mg QD Take [address] [facility] (PRAVACHOL) 8-16 by mouth [facility] 80 MG 10:51: daily. Medical tablet 00 Center gabapentin 0 Yes 300mg [id number] Take [address] [facility] [address] (NEURONTIN) 8-16 [id number] mg by Evelyn ukes 300 MG 10:51: 3D mouth 3 Medical capsule 00 (three) Center times daily . OXcarbazepi Yes 300mg Q.5D Take [address] ne 8-16 mg by [facility] (TRILEPTAL) 10:51: mouth 2 Med ical 600 MG 00 (two) Center tablet times daily . CLONAZEPAM Yes .25mg Take 0.[address] ORAL 8-16 mg by [facility] 10:51: mouth 2 Medical 00 (two) Center times daily as needed. modafinil Yes 200mg Q.5D Take [address] [facility] [address] (PROVIGIL) 8-16 mg by [facility] 200 MG 10:51: mouth 2 Medical tablet 00 (two) Center times daily Patient can stop Provigil the day before surgery, But because of his Multiple Sclerosis needs to take it up until that time.. cholecalcif Yes 5000U QD Take 5,[address] [address] kerline, 8-16 Units by [facility] vitamin D3, 10:51: mouth Medic al 5,000 unit 00 daily. Center Tab ocrelizumab Yes 1{dose} Inject [address] [facility] (OCREVUS) 8-16 Dose [facility] 30 mg/mL 10:51: intravenou Med ical Soln 00 sly every Center 6 (six) months. olmesartan 0 Yes 5mg QD Take [address] [facility] [address] [facility] (BENICAR) 5 8-16 by mouth [facility] MG tablet 10:51: nightly . Med ical 00 Center DULoxetine 0 Yes 20mg QD Take [address] (CYMBALTA) 8-16 by [facility] 20 MG 10:51: daily. Medical capsule 00 [place] digoxin Yes 125ug QD Take [facility] (LANOXIN) 8-16 mcg [facility] 0.125 MG 10:51: mouth Medical tablet 00 nightly . [place] alfuzosin Yes 10mg QD Take [address] [facility] (UROXATRAL) 8-16 by mouth [facility] 10 mg 24 hr 10:51: daily. Medi darren tablet 00 [place] amantadine Yes 100mg QD Take [address] HCL 8-16 mg by [facility] (SYMMETREL) 10:51: mouth Medic al 100 mg 00 daily. [place] capsule olmesartan Yes 5mg Take 5 mg [facility] (BENICAR) 5 8-16 by mouth. [facility] MG tablet 00:00: of 00 Medicin e potassium Yes 10meq Take 10 [facility] chloride SA 8-16 [facility] (K-DUR, 00:00: mouth. of KLOR-CON 00 Medicin M10) 10 MEQ e tablet pravastatin Yes 80mg Take 80 mg [facility] (PRAVACHOL) 8-16 by mouth. [facility] 80 MG 00:00: of tablet 00 Medicin e Dabigatran Yes Take by [facility] Etexilate 7-11 mouth two [facility] Mesylate 09:17: times of 150 MG CAPS 34 daily. Medici n e Mesalamine Yes Take by [facility] 1.2 g TBEC 7-11 mouth. [place] 09:17: of 34 Medicin e Cholecalcif Yes 5000mg Take 5,000 [facility] kerline 7-11 mg by [place] (VITAMIN D 09:17: mouth of OR) 34 daily. Medicin e Ocrelizumab Yes Inject [facility] (OCREVUS) 7-11 [facility] 300 MG/10ML 09:17: vein once. of injection 34 Medicin e duloxetine Yes 20mg Take 20 mg [facility] (CYMBALTA) 7-11 by mouth [facility] 20 MG 09:17: daily. of capsule 34 Medicin e levothyroxi Yes 175ug Take 175 [facility] ne 7-11 mcg by [place] (SYNTHROID) 09:17: mouth of 175 MCG 34 daily. Medicin tablet e oxcarbazepi 0 Yes 300mg Take 300 [facility] ne 7-11 mg by [place] (TRILEPTAL) 09:17: mouth two o f 300 MG 34 times Medicin tablet daily. e fludrocorti 2021-0 Yes .1mg Take 0.1 [facility] sone 7-11 mg by [place] (FLORINEF) 09:17: mouth of 0.1 MG 34 daily. Medicin tablet e Ranolazine 0 Yes Take by [facility] 500 MG TB12 7-11 mouth. [facility] 09:17: of 34 Medicin e furosemide 0 Yes 40mg Take 40 mg [facility] (LASIX) 40 7-11 by mouth [facility] MG tablet 09:17: daily. of 34 Medicin e Vitamin D, 0 Yes Take by [facility] Ergocalcife 7-11 mouth. [place], [id number] 09:17: of units CAPS 34 Medicin e Alfuzosin 2021-0 Yes [id number] TAKE ONE [facility] HCl 10 MG 7-07 9100 TABLET BY [facility] TB24 00:00: MOUTH of 00 EVERY Medicin NIGHT AT e BEDTIME Alfuzosin 2021-0 Yes [id number] TAKE ONE [facility] HCl 10 MG 7-07 9100 TABLET BY [facility] TB24 00:00: MOUTH of 00 EVERY Medicin NIGHT AT e BEDTIME Alfuzosin 2021-0 Yes [id number] TAKE ONE [facility] HCl 10 MG 7-07 9100 TABLET BY [facility] TB24 00:00: MOUTH of 00 EVERY Medicin NIGHT AT e BEDTIME Alfuzosin 2021-0 Yes [id number] TAKE ONE [facility] HCl 10 MG 7-07 9100 TABLET BY [facility] TB24 00:00: MOUTH of 00 EVERY Medicin NIGHT AT e BEDTIME Alfuzosin 2021-0 Yes [id number] TAKE ONE [facility] HCl 10 MG 7-07 9100 TABLET BY [facility] TB24 00:00: MOUTH of 00 EVERY Medicin NIGHT AT e BEDTIME Dabigatran 2021-0 Yes Take by [facility] Etexilate 6-17 mouth two [facility] Mesylate 08:53: times of 150 MG CAPS 57 daily. Medici n e Cholecalcif 0 Yes 5000mg Take 5,000 [facility] kerline 6-17 mg by [place] (VITAMIN D 08:53: mouth of OR) 57 daily. Medicin e Ocrelizumab Yes Inject [facility] (OCREVUS) 6-17 [facility] 300 MG/10ML 08:53: vein once. of injection 57 Medicin e duloxetine 0 Yes 20mg Take 20 mg [facility] (CYMBALTA) 6-17 by mouth [facility] 20 MG 08:53: daily. of capsule 57 Medicin e levothyroxi 0 Yes 175ug Take 175 [facility] ne 6-17 mcg by [place] (SYNTHROID) 08:53: mouth of 175 MCG 57 daily. Medicin tablet e fludrocorti 0 Yes .1mg Take 0.1 [facility] sone 6-17 mg by [place] (FLORINEF) 08:53: mouth of 0.1 MG 57 daily. Medicin tablet e Ranolazine Yes Take by [facility] 500 MG TB12 6-17 mouth. [facility] 08:53: of 57 Medicin e furosemide 0 Yes 40mg Take 40 mg [facility] (LASIX) 40 6-17 by mouth [facility] MG tablet 08:53: daily. of 57 Medicin e Vitamin D, 0 Yes Take by [facility] Ergocalcife 6-17 mouth. [facility] [place], [id number] 08:53: of units CAPS 57 Medicin e Alfuzosin 0 Yes [id number] TAKE ONE [facility] HCl 10 MG 5-06 9100 TABLET BY [facility] TB24 00:00: MOUTH AT of 00 BEDTIME Medicin e modafinil 0 Yes TAKE ONE [facility] (PROVIGIL) 4-19 TABLET BY Rosanne ege 200 MG 00:00: MOUTH of tablet 00 TWICE A Medicin DAY e modafinil 0 Yes TAKE ONE [facility] (PROVIGIL) 4-19 TABLET BY Rosanne ege 200 MG 00:00: MOUTH of tablet 00 TWICE A Medicin DAY e modafinil 0 Yes TAKE ONE [facility] (PROVIGIL) 4-19 TABLET BY Rosanne ege 200 MG 00:00: MOUTH of tablet 00 TWICE A Medicin DAY e Amantadine 2021-0 Yes TAKE ONE [facility] HCl 100 MG 3-30 TABLET BY Ros[facility] ege TABS 00:00: MOUTH of 00 TWICE A Medicin DAY e Amantadine 2021-0 Yes TAKE ONE [facility] HCl 100 MG 3-30 TABLET BY [facility] e[facility] TABS 00:00: MOUTH of 00 TWICE A Medicin DAY e Dabigatran 2021-0 Yes Take by [facility] Etexilate 3-21 mouth two [facility] Mesylate 09:45: times of 150 MG CAPS 41 daily. Medici n e Mesalamine 2021-0 Yes Take by [facility] 1.2 g TBEC 3-21 mouth. [facility] 09:45: of 41 Medicin e Cholecalcif 2021-0 Yes 5000mg Take 5,000 [facility] kerline 3-21 mg by [place] (VITAMIN D 09:45: mouth of OR) 41 daily. Medicin e Ocrelizumab 2021-0 Yes Inject [facility] (OCREVUS) 3-[facility] 300 MG/10ML 09:45: vein once. of injection 41 Medicin e duloxetine 2021-0 Yes 20mg Take 20 mg [facility] (CYMBALTA) 3-21 by mouth [facility] 20 MG 09:45: daily. of capsule 41 Medicin e levothyroxi 2021-0 Yes 175ug Take 175 [facility] ne 3-21 mcg by [place] (SYNTHROID) 09:45: mouth of 175 MCG 41 daily. Medicin tablet e oxcarbazepi 2021-0 Yes 300mg Take 300 [facility] ne 3-21 mg by [place] (TRILEPTAL) 09:45: mouth two o f 300 MG 41 times Medicin tablet daily. e Mesalamine 2021-0 Yes Take by [facility] 1.2 g TBEC 3-21 mouth. [facility] 09:45: of 41 Medicin e oxcarbazepi 2021-0 Yes 300mg Take 300 [facility] ne 3-21 mg by [place] (TRILEPTAL) 09:45: mouth two o f 300 MG 41 times Medicin tablet daily. e amIODarone 2021-0 Yes 200mg QD Take 1 [facility] (PACERONE) 3-[address] 200 MG 00:00: (200 mg [facility] tablet 00 total) by l mouth in the morning. digOXIN 2021-0 2021- No 125ug Take 125 [facility] (LANOXIN) 09-18- mcg by st 125 mcg 13:47: 00:00 mouth. [facility] (0.125 mg) 33 :00 l tablet midodrine 0 2021- No 5mg [id number] Take 5 mg [facility] (PROAMATINE 09-18 [id number] by mouth 3 st ) 5 MG 13:47: 00:00 3D (three) [facility]osp[facility] tablet 33 :00 times a l day. 2-3 times a day Alfuzosin 2021-0 Yes [id number] TAKE ONE [facility] HCl 10 MG 09-18 91 TABLET BY Delores brooks TB24 00:00: MOUTH AT of 00 BEDTIME Medicin e amLODIPine 2021-0 Yes as needed. [facility] (NORVASC) 2-12 st 2.5 mg 00:00: [facility]osp[facility] tablet 00 l amlodipine 2021-0 Yes as needed. [facility] (NORVASC) 2-12 [facility] 2.5 MG 00:00: of tablet 00 Medicin e amlodipine 2022-0 Yes as needed. [facility] (NORVASC) 2-12 [facility] 2.5 MG 00:00: of tablet 00 Medicin e amlodipine 2-0 Yes as needed. [facility] (NORVASC) 2-12 [facility] 2.5 MG 00:00: of tablet 00 Medicin e amlodipine 2022-0 Yes as needed. [facility] (NORVASC) 2-12 [facility] 2.5 MG 00:00: of tablet 00 Medicin e amlodipine 2022-0 Yes as needed. [facility] (NORVASC) 2-12 [facility] 2.5 MG 00:00: of tablet 00 Medicin e amlodipine 2022-0 Yes as needed. [facility] (NORVASC) 2-12 [facility] 2.5 MG 00:00: of tablet 00 Medicin e amlodipine 2022-0 Yes as needed. [facility] (NORVASC) 2-12 [facility] 2.5 MG 00:00: of tablet 00 Medicin e Amantadine 2020-07 Yes TAKE ONE [facility] HCl 100 MG 2-13 TABLET BY Rosanne ege TABS 00:00: MOUTH of 00 TWICE A Medicin DAY e amIODarone 2020-07- No 200mg Take 200 [facility] (PACERONE) 2-11 03-[address] 200 MG 00:00: 00:00 mouth. 200 [facility] tablet 00 :00 mg one day l and 100 mg next dayas alternatin g rosuvastati 2021- No TAKE ONE M [facility]i n (CRESTOR) 04-23 10-[address] 10 mg 00:00: 00:00 MOUTH [facility] tablet 00 :00 DAILY l modafinil Yes TAKE ONE [facility] (PROVIGIL) 04-20 TABLET BY [facility] ege 200 MG 00:00: MOUTH of tablet 00 TWICE A Medicin DAY e Dabigatran Yes Take by [facility] Etexilate 9-20 mouth two [facility] Mesylate 10:10: times of (PRADAXA) 55 daily. Medicin 150 MG CAPS e Mesalamine Yes Take by [facility] (LIALDA) 9-20 mouth. [facility] 1.2 G TBEC 10:10: of 55 Medicin e Cholecalcif Yes 5000mg Take 5,000 [facility] kerline 9-20 mg by [place] (VITAMIN D 10:10: mouth of OR) 55 [...] 175 [facility] ne 9-20 mcg by [place] (SYNTHROID) 10:10: mouth of 175 MCG 55 daily. Medicin tablet e oxcarbazepi Yes 300mg Take 300 [facility] ne 9-20 mg by [place] (TRILEPTAL) 10:10: mouth two o f 300 MG 55 times Medicin tablet daily. e Dabigatran Yes Take by [facility] Etexilate 9-20 mouth two [facility] Mesylate 10:10: times of (PRADAXA) 55 daily. Medicin 150 MG CAPS e Mesalamine Yes Take by [facility] (LIALDA) 9-20 mouth. [facility] 1.2 G TBEC 10:10: of 55 Medicin e Cholecalcif Yes 5000mg Take 5,000 [facility] kerline 9-20 mg by [place] (VITAMIN D 10:10: mouth of OR) 55 [...] 175 [facility] ne 9-20 mcg by [place] (SYNTHROID) 10:10: mouth of 175 MCG 55 daily. Medicin tablet e oxcarbazepi Yes 300mg Take 300 [facility] ne 9-20 mg by [place] (TRILEPTAL) 10:10: mouth two o f 300 [...] Medicin daily. e Amantadine Yes TAKE ONE [facility] HCl 100 MG 7-27 TABLET BY Ros[facility] ege TABS 00:00: MOUTH of 00 TWICE A Medicin DAY e Amantadine Yes TAKE ONE [facility] HCl 100 MG 7-27 TABLET BY Ros[facility] ege TABS 00:00: MOUTH of 00 TWICE A Medicin DAY e amiodarone Yes 1 tablet [facility] (PACERONE) 02-02 by mouth [facility] 200 MG 00:00: twice a of tablet 00 day Medicin e amiodarone Yes 1 tablet [facility] (PACERONE) 02-02 by mouth [facility] 200 MG 00:00: twice a of tablet 00 day Medicin e amiodarone Yes 200mg 200 mg. [facility] (PACERONE) 02-02 [facility] 200 MG 00:00: of tablet 00 Medicin e amiodarone Yes 200mg 200 mg. [facility] (PACERONE) 02-02 [facility] 200 MG 00:00: of tablet 00 Medicin e amiodarone Yes 200mg 200 mg. [facility] (PACERONE) 02-02 [facility] 200 MG 00:00: of tablet 00 Medicin e amiodarone Yes 200mg 200 mg. [facility] (PACERONE) 02-02 [facility] 200 MG 00:00: of tablet 00 Medicin e amiodarone Yes 200mg 200 mg. [facility] (PACERONE) 02-02 [facility] 200 MG 00:00: of tablet 00 Medicin e dorzolamide 2021- No 1[drp] Q.5D Administer [facility] (TRUSOPT) 2 02-[address] % 00:00: 00:00 into the [facility] ophthalmic 00 :00 left eye 2 l solution (two) times a day. modafinil 2020- No TAKE ONE [facility] (PROVIGIL) 01-18 TABLET BY [facility] 200 MG 00:00: 00:00 MOUTH of tablet 00 :00 TWICE A Medicin DAY e modafinil 2020- No TAKE ONE [facility] (PROVIGIL) 01-18 TABLET BY [facility] 200 MG 00:00: 00:00 MOUTH of tablet 00 :00 TWICE A Medicin DAY e midodrine Yes 1{tbl} Take 1 [facility] (PROAMATINE 6-07 Tablet by [facility] ) 5 MG 00:00: mouth 3 of tablet 00 times Medicin daily. e midodrine Yes 1{tbl} Take 1 [facility] (PROAMATINE 6-07 Tablet by [facility] ) 5 MG 00:00: mouth 3 of tablet 00 times Medicin daily. e midodrine Yes 1{tbl} Take 1 [facility] (PROAMATINE 6-07 Tablet by [facility] ) 5 MG 00:00: mouth 3 of tablet 00 times Medicin daily. e midodrine 2020-0 Yes 1{tbl} Take 1 [facility] (PROAMATINE 6-07 Tablet by [facility] ) 5 MG 00:00: mouth 3 of tablet 00 times Medicin daily. e midodrine 2020-0 Yes 1{tbl} Take 1 [facility] (PROAMATINE 6-07 Tablet by [facility] ) 5 MG 00:00: mouth 3 of tablet 00 times Medicin daily. e midodrine 2020-0 Yes 1{tbl} Take 1 [facility] (PROAMATINE 6-07 Tablet by [facility] ) 5 MG 00:00: mouth 3 of tablet 00 times Medicin daily. e midodrine 2020-0 Yes 1{tbl} Take 1 [facility] (PROAMATINE 6-07 Tablet by [facility] ) 5 MG 00:00: mouth 3 of tablet 00 times Medicin daily. e Dabigatran Yes Take by [facility] Etexilate 5-24 mouth two [facility] Mesylate 09:11: times of (PRADAXA) 20 daily. Medicin 150 MG CAPS e Mesalamine Yes Take by [facility] (LIALDA) 5-24 mouth. College 1.2 G TBEC 09:11: of 20 Medicin e Cholecalcif Yes 5000mg Take 5,000 [facility] kerline 5-24 mg by [place] (VITAMIN D 09:11: mouth of OR) 20 [...] 175 [facility] ne 5-24 mcg by [place] (SYNTHROID) 09:11: mouth of 175 MCG 20 daily. Medicin tablet e oxcarbazepi Yes 300mg Take 300 [facility] ne 5-24 mg by [place] (TRILEPTAL) 09:11: mouth two o f 300 MG 20 times Medicin tablet daily. e prasugreL 2021- No 10mg QD Take 1 [facility] (Effient) 420 09-18 tablet (10 st 10 mg 00:00: 00:00 mg total) Hospit a tablet 00 :00 by mouth l daily. digoxin Yes 125ug Take 125 [facility] (LANOXIN) 4-13 mcg by [place] 125 MCG 00:00: mouth at of tablet 00 bedtime. Medicin e digoxin Yes 125ug Take 125 [facility] (LANOXIN) 4-13 mcg by [place] 125 MCG 00:00: mouth at of tablet 00 bedtime. Medicin e digoxin Yes 125ug Take 125 [facility] (LANOXIN) 4-13 mcg by [place] 125 MCG 00:00: mouth at of tablet 00 bedtime. Medicin e digoxin Yes 125ug Take 125 [facility] (LANOXIN) 4-13 mcg by [place] 125 MCG 00:00: mouth at of tablet 00 bedtime. Medicin e digoxin Yes 125ug Take 125 [facility] (LANOXIN) 4-13 mcg by [place] 125 MCG 00:00: mouth at of tablet 00 bedtime. Medicin e digoxin Yes 125ug Take 125 [facility] (LANOXIN) 4-13 mcg by [place] 125 MCG 00:00: mouth at of tablet 00 bedtime. Medicin e digoxin Yes 125ug Take 125 [facility] (LANOXIN) 4-13 mcg by [place] 125 MCG 00:00: mouth at of tablet 00 bedtime. Medicin e digoxin 2021- No 125ug Take 125 [facility] (LANOXIN) 4-13 08-29 mcg by [place] 125 MCG 00:00: 00:00 mouth at of tablet 00 :00 bedtime. Medicin e latanoprost 2021- No 1[drp] QD Administer [facility] (XALATAN) 309-[address] 0.005 % 00:00: 00:00 both eyes [facility] ophthalmic 00 :00 nightly. l solution Dabigatran Yes Take by [facility] Etexilate 3 mouth two [facility] Mesylate 15:43: times of (PRADAXA) 03 daily. Medicin 150 MG CAPS e Mesalamine 0 Yes Take by [facility] (LIALDA) 3-01 mouth. [facility] 1.2 G TBEC 15:43: of 03 Medicin e Cholecalcif 2020-0 Yes 5000mg Take 5,000 [facility] kerline 3-01 mg by [place] (VITAMIN D 15:43: mouth of OR) 03 daily. Medicin e Ocrelizumab Yes Inject [facility] (OCREVUS) 3-01 [facility] 300 MG/10ML 15:43: vein once. of injection 03 Medicin e duloxetine 0 Yes 20mg Take 20 mg [facility] (CYMBALTA) 3-01 by mouth [facility] 20 MG 15:43: daily. of capsule 03 Medicin e levothyroxi 2020-0 Yes 175ug Take 175 [facility] ne 3-01 mcg by [place] (SYNTHROID) 15:43: mouth of 175 MCG 03 daily. Medicin tablet e oxcarbazepi Yes 300mg Take 300 [facility] ne 3-01 mg by [place] (TRILEPTAL) 15:43: mouth two o f 300 MG 03 times Medicin tablet daily. e Dabigatran Yes Take by [facility] Etexilate 3-01 mouth two [facility] Mesylate 15:43: times of (PRADAXA) 03 daily. Medicin 150 MG CAPS e Mesalamine 0 Yes Take by [facility] (LIALDA) 3-01 mouth. [place] 1.2 G TBEC 15:43: of 03 Medicin e Cholecalcif 0 Yes 5000mg Take 5,000 [facility] kerline 3-01 mg by [place] (VITAMIN D 15:43: mouth of OR) 03 daily. Medicin e Ocrelizumab 0 Yes Inject [facility] (OCREVUS) 3-01 [facility] 300 MG/10ML 15:43: vein once. of injection 03 Medicin e duloxetine 2020-0 Yes 20mg Take 20 mg [facility] (CYMBALTA) 3-01 by mouth Colle [facility] 20 MG 15:43: daily. of capsule 03 Medicin e levothyroxi 2020-0 Yes 175ug Take 175 [facility] ne 3-01 mcg by [place] (SYNTHROID) 15:43: mouth of 175 MCG 03 daily. Medicin tablet e oxcarbazepi Yes 300mg Take 300 [facility] ne 3-01 mg by [place] (TRILEPTAL) 15:43: mouth two o f 300 MG 03 times Medicin tablet daily. e Dabigatran Yes Take by [facility] Etexilate 09-25 mouth two [facility] Mesylate 15:43: times of (PRADAXA) 03 daily. Medicin 150 MG CAPS e Mesalamine Yes Take by [facility] (LIALDA) 3- mouth. College 1.2 G TBEC 15:43: of 03 Medicin e Cholecalcif Yes 5000mg Take 5,000 [facility] kerline 3- mg by [place] (VITAMIN D 15:43: mouth of OR) 03 daily. Medicin e Ocrelizumab Yes Inject [facility] (OCREVUS) 09-25 [facility] 300 MG/10ML 15:43: vein once. of injection 03 Medicin e duloxetine Yes 20mg Take 20 mg [facility] (CYMBALTA) 3- by mouth Colle [facility] 20 MG 15:43: daily. of capsule 03 Medicin e levothyroxi Yes 175ug Take 175 [facility] ne 3-01 mcg by [place] (SYNTHROID) 15:43: mouth of 175 MCG 03 daily. Medicin tablet e oxcarbazepi Yes 300mg Take 300 [facility] ne 3-01 mg by [place] (TRILEPTAL) 15:43: mouth two o f 300 MG 03 times Medicin tablet daily. e olmesartan 2020- No 5mg Take 5 mg [facility] (BENICAR) 5 - 03-01 by mouth [facility] MG tablet 15:41: 00:00 daily. of 20 :00 Medicin e amlodipine 2020-2020- No 2.5mg Take 2.5 [facility] (NORVASC) 3 03- mg by [place] 2.5 MG 15:41: 00:00 mouth of tablet 08 :00 daily. Medicin e rosuvastati Yes 10mg Take 10 mg [facility] n (CRESTOR) 2-26 by mouth [facility] 10 MG 00:00: daily. of tablet 00 Medicin e rosuvastati 0 Yes 10mg Take 10 mg [facility] n (CRESTOR) 2-26 by mouth [facility] 10 MG 00:00: daily. of tablet 00 Medicin e rosuvastati 0 Yes 10mg Take 10 mg [facility] (CRESTOR) 2-26 by mouth [facility] 10 MG 00:00: daily. of tablet 00 Medicin e rosuvastati 0 Yes 10mg Take 10 mg [facility] n (CRESTOR) 2-26 by mouth [facility] 10 MG 00:00: daily. of tablet Medicin e rosuvastati 0 Yes 10mg Take 10 mg [facility] (CRESTOR) 2-26 by mouth [facility] 10 MG 00:00: daily. of tablet Medicin e rosuvastati 0 Yes 10mg Take 10 mg [facility] n (CRESTOR) 2-26 by mouth [facility] 10 MG 00:00: daily. of tablet Medicin e rosuvastati 0 Yes 10mg Take 10 mg [facility] n (CRESTOR) 2-26 by mouth [facility] 10 MG 00:00: daily. of tablet Medicin e rosuvastati 0 Yes 10mg Take 10 mg [facility] (CRESTOR) 2-26 by mouth [facility] 10 MG 00:00: daily. of tablet Medicin e rosuvastati 0 Yes 10mg Take 10 mg [facility] n (CRESTOR) 2-26 by mouth [facility] 10 MG 00:00: daily. of tablet Medicin e rosuvastati 0 Yes 10mg Take 10 mg [facility] n (CRESTOR) 2-26 by mouth [facility] 10 MG 00:00: daily. of tablet 00 Medicin e rosuvastati 0 Yes 10mg Take 10 mg [facility] (CRESTOR) 2-26 by mouth [facility] 10 MG 00:00: daily. of tablet Medicin e rosuvastati 2020-0 Yes 10mg Take 10 mg [facility] n (CREST[facility]) 2-26 by mouth Rosanne ege 10 MG 00:00: daily. of tablet Medicin e rosuvastati 2021-0 Yes 10mg Take 10 mg [employer] [facility] n (CRESTOR) 2-26 by mouth Rosanne ege 10 MG 00:00: daily. of tablet 00 Medicin e Alfuzosin 1-0 Yes [id number] 10mg Take 10 mg [place] HCl 10 MG 2-16 9100 by mouth [facility] TB24 00:00: at of 00 bedtime. Medicin e Alfuzosin 1-0 Yes [id number] 10mg Take 10 mg [facility] HCl 10 MG 2-16 9100 by mouth [facility] TB24 00:00: at of 00 bedtime. Medicin e Alfuzosin 1-0 Yes [id number] 10mg Take 10 mg [facility] HCl 10 MG 2-16 9100 by mouth [facility] TB24 00:00: at of 00 bedtime. Medicin e Alfuzosin 2020-0 Yes [id number] 10mg Take 10 mg [facility] HCl 10 MG 2-16 9100 by mouth [facility] TB24 00:00: at of bedtime. Medicin e Alfuzosin 2020-0 Yes [id number] 10mg Take 10 mg [facility] HCl 10 MG 2-16 9100 by mouth [facility] TB24 00:00: at of 00 bedtime. Medicin e Alfuzosin 1-0 Yes [id number] 10mg Take 10 mg [facility] HCl 10 MG 2-16 9100 by mouth [facility] TB24 00:00: at of 00 bedtime. Medicin e latanoprost 2020-0 Yes [facility] (XALATAN) 2-08 [place] 0.005 % 00:00: of ophthalmic 00 Medicin solution e latanoprost 2020-0 Yes [facility] (XALATAN) 2-08 [place] 0.005 % 00:00: of ophthalmic 00 Medicin solution e latanoprost 2020-0 Yes [facility] (XALATAN) 2-08 [place] 0.005 % 00:00: of ophthalmic 00 Medicin solution e latanoprost 2020-0 Yes [facility] (XALATAN) 2-08 [place] 0.005 % 00:00: of ophthalmic 00 Medicin solution e latanoprost 2020-0 Yes [facility] (XALATAN) 2-08 [place] 0.005 % 00:00: of ophthalmic 00 Medicin solution e latanoprost 2021-0 Yes [facility] (XALATAN) 2-08 [place] 0.005 % 00:00: of ophthalmic 00 Medicin solution e latanoprost 0 Yes [facility] (XALATAN) 2-08 [place] 0.005 % 00:00: of ophthalmic 00 Medicin solution e latanoprost 0 2021- No Yesica r (XALATAN) 2-08 07-11 [place] 0.005 % 00:00: 00:00 of ophthalmic 00 :00 Medicin solution e gabapentin 0 Yes TAKE THREE [facility] [...] THREE Medicin TIMES A e DAY lorazepam Yes .5mg Take 1 [facility] (ATIVAN) 2-03 Tablet by [facility] e 0.5 MG 00:00: mouth of tablet 00 every 6 Medicin hours as e needed for Anxiety. lorazepam 0 Yes .5mg Take 1 [facility] (ATIVAN) 2-03 Tablet by Colleg e 0.5 MG 00:00: mouth of tablet 00 every 6 Medicin hours as e needed for Anxiety. LORAZepam 2021- No .5mg Take 0.5 [facility] (ATIVAN) 2-03 02-[address] 0.5 MG 00:00: 00:00 mouth once [facility]osp [facility] tablet 00 :00 as needed l for anxiety. Only using when he has to get an MRI(per [facility] Aware patient last filled on 08/30/2020 for quantity of 4 day supply of 1) lorazepam 2020- No .5mg Take 1 [facility] (ATIVAN) 2-03 04-15 Tablet by Colle ge 0.5 MG 00:00: 00:00 mouth of tablet 00 :00 every 6 Medicin hours as e needed for Anxiety. clopidogrel 2019-07 Yes 75mg Take 75 mg [facility] (PLAVIX) 75 2-18 by mouth [facility] MG Tablet 00:00: daily. of 00 Medicin e clopidogrel 2019-07 Yes 75mg Take 75 mg [facility] (PLAVIX) 75 2-18 by mouth [facility] MG Tablet 00:00: daily. of 00 Medicin e clopidogrel 2019-07 Yes 75mg Take 75 mg [facility] (PLAVIX) 75 2-18 by mouth [facility] [...] 00 TWICE A Medicin DAY e modafinil 2019- Yes TAKE ONE [facility] (PROVIGIL) 2-07 TABLET BY [facility] 200 MG 00:00: MOUTH of tablet 00 TWICE A Medicin DAY e modafinil 2019- Yes TAKE ONE [facility] (PROVIGIL) 2-07 TABLET BY [facility] 200 MG 00:00: MOUTH of tablet 00 TWICE A Medicin DAY e Amantadine 2019-07 Yes TAKE ONE [facility] [facility] HCl 100 MG 1-27 TABLET BY [facility] TABS 00:00: MOUTH of 00 TWICE A Medicin DAY e Amantadine 2019-07 Yes TAKE ONE [place] [facility] HCl 100 MG 1-27 TABLET BY [facility] TABS 00:00: MOUTH of 00 TWICE A Medicin DAY e Amantadine 2019-07 Yes TAKE ONE [place] [facility] HCl 100 MG 1-27 TABLET BY [facility] TABS 00:00: MOUTH of 00 TWICE A Medicin DAY e Amantadine 2019-07 Yes TAKE ONE [place] [facility] HCl 100 MG 1-27 TABLET BY [facility] TABS 00:00: MOUTH of 00 TWICE A Medicin DAY e amiodarone 2020-0 Yes [facility] (PACERONE) 8-07 College 200 MG 00:00: of tablet 00 Medicin e amiodarone 2020-0 Yes [facility] (PACERONE) 807 College 200 MG 00:00: of tablet 00 Medicin e amiodarone 2020-0 2020- No [facility] (PACERONE) 8- 04-15 College 200 MG 00:00: 00:00 of tablet 00 :00 Medicin e Dabigatran 2020-0 Yes Take by [facility] Etexilate 3-17 mouth two Colle ge Mesylate 16:18: times of (PRADAXA) 48 daily. Medicin 150 MG CAPS e Mesalamine 2020-0 Yes Take by [facility] or (LIALDA) 3-17 mouth. College 1.2 G TBEC 16:18: of 48 Medicin e Cholecalcif 2020-0 Yes 5000mg Take 5,000 [facility] kerline 3-17 mg by [place] (VITAMIN D 16:18: mouth of OR) 48 [...] 2.5 [facility] (NORVASC) 3-17 mg by [place] 2.5 MG 16:18: mouth of tablet 48 daily. Medicin e levothyroxi 2020-0 Yes 175ug Take 175 [facility] ne 3-17 mcg by [place] (SYNTHROID) 16:18: mouth of 175 MCG 48 daily. Medicin tablet e oxcarbazepi 2020-0 Yes 300mg Take 300 [facility] ne 3-17 mg by [place] (TRILEPTAL) 16:18: mouth two o f 300 MG 48 times Medicin tablet daily. e oxcarbazepi 2020-0 Yes 150mg Take 150 [facility] ne 3-17 mg by [place] (TRILEPTAL) 16:18: mouth two o f 150 MG 48 times Medicin tablet daily. e Tamsulosin 2020-0 Yes [id number] .4mg Take 0.4 [facility] HCl 0.4 MG 3-17 9100 mg by [place] CAPS 00:00: mouth at of 00 bedtime. Medicin e ciprofloxac 2020-0 Yes [id number] 500mg Take 1 Tab [facility] in (CIPRO) 3-17 by mouth Colle [facility] 500 MG 00:00: two times of tablet 00 daily. Medicin e Amantadine 2020-0 Yes TAKE ONE [place] [facility] HCl 100 MG 3-16 TABLET BY [facility] TABS 00:00: MOUTH of 00 TWICE A Medicin DAY e Dabigatran 2020-0 Yes Take by [facility] Etexilate 2-25 mouth two Colle ge Mesylate 19:48: times of (PRADAXA) 18 daily. Medicin 150 MG CAPS e Mesalamine 2020-0 Yes Take by [facility] (LIALDA) 2-25 mouth. College 1.2 G TBEC 19:48: of 18 Medicin e Cholecalcif 2020-0 Yes 5000mg Take 5,000 [facility] kerline 2-25 mg by College (VITAMIN D 19:48: mouth of OR) 18 [...] 2.5 [facility] (NORVASC) 2-25 mg by [place] 2.5 MG 19:48: mouth of tablet 18 [...] levothyroxi 2020-0 2020- No 150ug Take 150 [facility] ne 2-25 02-25 mcg by College (SYNTHROID) 19:48: 00:00 mouth of 150 MCG 18 :00 daily. Medicin tablet e LATANOPROST 2020-0 2020- No Apply to [facility] 2-09-21 eye. College 19:48: 00:00 of 18 :00 Medicin e potassium 2020-0 2020- No 10meq Take 10 [facility] [facility] chloride 2-21 09- mEq by [place] (KDUR) 10 19:48: 00:00 mouth of MEQ [...] times of tablet 00 daily. Medicin e propylene 2019-0 2021- No 1[drp] Q.25D Apply 1 M ethodi glycol 2-10 09-[address] (SYSTANE 00:00: 00:00 eye 4 [facility]osp[facility] BALANCE) 00 :00 (four) l 0.6 % drops times a day. Cholecalcif 2020-0 Yes 5000mg Take 5,000 [facility] kerline 1-27 mg by [place] (VITAMIN D 18:14: mouth of OR) 28 [...] 150 [facility] ne 1-27 mcg by [place] (SYNTHROID) 18:14: mouth of 150 MCG 28 daily. Medicin tablet e Dabigatran 2020-0 Yes Take by [facility] Etexilate 1-27 mouth two Colle ge Mesylate 18:14: times of (PRADAXA) 28 daily. Medicin 150 MG CAPS e LATANOPROST 2019- Yes Apply to Barry lopez OP 08-23 eye. College 18:14: Medicin e potassium Yes 10meq Take 10 [facility] chloride 1-27 mEq by College (KDUR) 10 18:14: mouth of MEQ tablet 28 daily. Medicin e Mesalamine Yes Take by [facility] (LIALDA) 1-27 mouth. College 1.2 G TBEC 18:14: Medicin e methylPREDN 2018-07 Yes Take by [facility] ISolone 1-15 mouth as College (MEDROL 00:00: directed. of DOSEPACK) 4 00 Medicin MG tablet e methylPREDN 2018-07 2020- No Take by ylor ISolone 1-15 09-21 mouth as College (MEDROL 00:00: 00:00 directed. of DOSEPACK) 4 00 :00 Medicin MG tablet e modafinil 2018-07 Yes TAKE ONE [facility] (PROVIGIL) 1-08 TABLET BY [facility] 200 MG 00:00: MOUTH of tablet 00 TWICE A Medicin DAY e modafinil 2018-07 2020- No TAKE ONE [facility] (PROVIGIL) 1-08 09-21 TABLET BY Col lege 200 MG 00:00: 00:00 MOUTH of tablet 00 :00 TWICE A Medicin DAY e gabapentin 2019- Yes TAKE THREE [facility] (NEURONTIN) 6-17 CAPSULES [facility] 300 MG 00:00: BY MOUTH of capsule 00 THREE Medicin TIMES A e DAY gabapentin 2019-0 Yes TAKE THREE [facility] (NEURONTIN) 6-17 CAPSULES [facility] 300 MG 00:00: BY MOUTH of capsule 00 THREE Medicin TIMES A e DAY gabapentin 2019-0 Yes TAKE THREE [facility] (NEURONTIN) 6-17 CAPSULES [facility] 300 MG 00:00: BY MOUTH of capsule 00 THREE Medicin TIMES A e DAY gabapentin 2019-0 Yes TAKE THREE [facility] (NEURONTIN) 6-17 CAPSULES [facility] 300 MG 00:00: BY MOUTH of capsule 00 THREE Medicin TIMES A e DAY modafinil 2018- Yes TAKE ONE [facility] (PROVIGIL) 3-27 TABLET BY [facility] 200 MG 00:00: MOUTH of tablet 00 TWICE A Medicin DAY e Amantadine 20180 Yes TAKE ONE [place] [facility] HCl 100 MG 3-25 TABLET BY [facility] TABS 00:00: MOUTH of 00 TWICE A Medicin DAY e Amantadine Yes TAKE ONE [place] [facility] HCl 100 MG 3-25 TABLET BY [facility] TABS 00:00: MOUTH of 00 TWICE A Medicin DAY e Amantadine Yes TAKE ONE [place] [facility] HCl 100 MG 3-25 TABLET BY [facility] TABS 00:00: MOUTH of 00 TWICE A Medicin DAY e AmANTadine Yes 100mg Q.5D Take 100 [facility] HCl 100 mg 3-[address] tablet 00:00: mouth 2 Hospita 00 (two) l times a day. furosemide Yes 40mg Take 40 mg [facility] (LASIX) 40 1-14 by mouth Colle ge MG tablet 20:27: daily. of 10 Medicin e levothyroxi Yes 150ug Take 150 [facility] ne 1-14 mcg by [place] (SYNTHROID) 20:27: mouth of 150 MCG 10 daily. Medicin tablet e Dabigatran Yes Take by [facility] Etexilate 1-14 mouth two Colle ge Mesylate 20:27: times of (PRADAXA) 10 daily. Medicin 150 MG CAPS e LATANOPROST Yes Apply to john CHAO 1-14 eye. [place] 20:27: of 10 Medicin e potassium Yes 10meq Take 10 [facility] chloride 1-14 mEq by [place] (KDUR) 10 20:27: mouth of MEQ tablet 10 daily. Medicin e Mesalamine Yes Take by [facility] or (LIALDA) 1-14 mouth. College 1.2 G TBEC 20:27: of 10 Medicin e Cholecalcif Yes 5000mg Take 5,000 [facility] kerline 1-14 mg by [place] (VITAMIN D 20:27: mouth of OR) 10 daily. Medicin e amiodarone Yes Inject [facility] (CORDARONE) 1-14 into the [facility] 50 mg/mL 20:27: vein. of injection 10 Medicin e Ocrelizumab Yes Inject [facility] (OCREVUS) 1-14 into the Colleg e 300 MG/10ML 20:27: vein once. of injection 10 Medicin e oxcarbazepi 2016-0 Yes [facility] ne - College (TRILEPTAL) 00:00: of 600 MG 00 Medicin tablet e oxcarbazepi 2016-0 Yes [facility] ne 04-02 College (TRILEPTAL) 00:00: of 600 MG 00 Medicin tablet e oxcarbazepi 2016-0 2020- No [facility] r ne 04-02- College (TRILEPTAL) 00:00: 00:00 of 600 MG 00 :00 Medicin tablet e esomeprazol 2016-0 Yes [facility] (NEXIUM) 8-17 College 40 MG 00:00: of capsule 00 Medicin e esomeprazol 2015-0 Yes [facility] e (NEXIUM) 8-17 College 40 MG 00:00: of capsule 00 Medicin e esomeprazol 2015-0 Yes [facility] e (NEXIUM) 8-17 College 40 MG 00:00: of capsule 00 Medicin e esomeprazol 2015-0 Yes [facility] (NEXIUM) 8-17 College 40 MG 00:00: of capsule 00 Medicin e esomeprazol 2015-0 Yes [facility] (NEXIUM) 8-17 College 40 MG 00:00: of capsule 00 Medicin e esomeprazol 2015-0 Yes [facility] e (NEXIUM) 8-17 College 40 MG 00:00: of capsule 00 Medicin e esomeprazol 2015-0 Yes [facility] e (NEXIUM) 8-17 College 40 MG 00:00: of capsule 00 Medicin e esomeprazol 2015-0 Yes [facility] (NEXIUM) 8-17 College 40 MG 00:00: of capsule 00 Medicin e esomeprazol 2016-0 Yes [facility] (NEXIUM) 8-17 College 40 MG 00:00: of capsule 00 Medicin e esomeprazol 2016-0 Yes [facility] e (NEXIUM) 8-17 College 40 MG 00:00: of capsule 00 Medicin e esomeprazol 2015-0 Yes [facility] e (NEXIUM) 8-17 College 40 MG 00:00: of capsule 00 Medicin e esomeprazol 2015-0 Yes [facility] e (NEXIUM) 8-17 College 40 MG 00:00: of capsule 00 Medicin e esomeprazol Yes [facility] e (NEXIUM) 8-17 College 40 MG 00:00: of capsule Medicin e esomeprazol Yes [facility] e (NEXIUM) 8-17 College 40 MG 00:00: of capsule Medicin e esomeprazol Yes [facility] e (NEXIUM) 8-17 College 40 MG 00:00: of capsule Medicin e esomeprazol Yes [facility] e (NEXIUM) 8-17 College 40 MG 00:00: of capsule Medicin e esomeprazol Yes [facility] e (NEXIUM) 8-17 College 40 MG 00:00: of capsule Medicin e mesalamine mesalamine No mesalamine [place] 1.2 gram 1.2 gram 1.2 gram Met ro tablet,loly tablet,loly tablet,del Urology yed release yed release ayed release midodrine 5 midodrine 5 No midodrine [place] mg tablet mg tablet 5 mg [facility] tablet U[facility] modafinil modafinil No modafinil [place] 200 mg 200 mg 200 mg [facility] tablet tablet tablet Urology oxcarbazepi oxcarbazepi No oxcarbazep [place] ne 300 mg ne 300 mg ine 300 mg [facility] tablet tablet tablet Urology Pradaxa 150 Pradaxa 150 No Pradaxa [place] mg capsule mg capsule 150 mg M etro capsule Urology ranolazine ranolazine No ranolazine [place] ER 500 mg ER 500 mg ER 500 mg [facility] tablet,exte tablet,exte tablet,ext Urology nded nded ended release,12 release,12 release,12 hr hr hr rosuvastati rosuvastati No rosuvastat [place] n 10 mg n 10 mg in 10 mg [facility] tablet tablet tablet Urology sulfamethox sulfamethox No sulfametho [place] azole 800 azole 800 xazole 800 [facility] mg-trimetho mg-trimetho mg-trimeth Urology prim 160 mg prim 160 mg oprim 160 tablet tablet mg tablet vancomycin vancomycin No vancomycin [place] 125 mg 125 mg 125 mg [facility] capsule capsule capsule Urolog y amantadine amantadine No amantadine [place] HCl 100 mg HCl 100 mg HCl 100 mg [facility] tablet tablet tablet Urology amiodarone amiodarone No amiodarone [place] 200 mg 200 mg 200 mg [facility] tablet tablet tablet Urology amlodipine amlodipine No amlodipine [place] 2.5 mg 2.5 mg 2.5 mg [facility] tablet tablet tablet Urology amlodipine amlodipine No amlodipine [place] 5 mg tablet 5 mg tablet 5 mg M etro tablet Urology cefpodoxime cefpodoxime No cefpodoxim [place] 200 mg 200 mg e 200 mg [facility] tablet TAKE tablet TAKE tablet Urology 1 TABLET 1 TABLET TAKE 1 ORALLY ORALLY TABLET EVERY 12 EVERY 12 ORALLY HOURS FOR HOURS FOR EVERY 12 10 DAYS 10 DAYS HOURS FOR 10 DAYS colchicine colchicine No colchicine [place] 0.6 mg 0.6 mg 0.6 mg [facility] tablet tablet tablet Urology digoxin 125 digoxin 125 No digoxin [place] mcg (0.125 mcg (0.125 125 mcg [facility] mg) tablet mg) tablet (0.125 mg) Urology tablet duloxetine duloxetine No duloxetine [place] 20 mg 20 mg 20 mg [facility] capsule,del capsule,del capsule,de Urology ayed ayed layed release release release esomeprazol esomeprazol No esomeprazo [place] e magnesium e magnesium le M etro 40 mg 40 mg magnesium Urology capsule,del capsule,del 40 mg ayed ayed capsule,de release release layed release fludrocorti fludrocorti No fludrocort [place] sone 0.1 mg sone 0.1 mg isone 0.1 [facility] tablet tablet mg tablet Urolog y levothyroxi levothyroxi No levothyrox [place] ne 175 mcg ne 175 mcg ine 175 [facility] tablet tablet mcg tablet Urolo gy mesalamine mesalamine No mesalamine [place] 1.2 gram 1.2 gram 1.2 gram Met ro tablet,loly tablet,loly tablet,del Urology yed release yed release ayed release midodrine 5 midodrine 5 No midodrine [place] mg tablet mg tablet 5 mg [facility] tablet Urology modafinil modafinil No modafinil [place] 200 mg 200 mg 200 mg [facility] tablet tablet tablet Urology oxcarbazepi oxcarbazepi No oxcarbazep [place] ne 300 mg ne 300 mg ine 300 mg [facility] tablet tablet tablet Urology Pradaxa 150 Pradaxa 150 No Pradaxa [place] mg capsule mg capsule 150 mg M etro capsule Urology ranolazine ranolazine No ranolazine [place] ER 500 mg ER 500 mg ER 500 mg [facility] tablet,exte tablet,exte tablet,ext Urology nded nded ended release,12 release,12 release,12 hr hr hr rosuvastati rosuvastati No rosuvastat [place] n 10 mg n 10 mg in 10 mg [facility] tablet tablet tablet Urology sulfamethox sulfamethox No sulfametho [place] azole 800 azole 800 xazole 800 [facility] mg-trimetho mg-trimetho mg-trimeth Urology prim 160 mg prim 160 mg oprim 160 tablet tablet mg tablet Uroxatral Uroxatral No 2 Q1D Uroxatral [place] 10 mg 10 mg 10 mg [facility] tablet,exte tablet,exte tablet,ext Urology nded nded ended release release release Take 2 Take 2 Take 2 tablets tablets tablets every day every day every day by oral by oral by oral route. route. route. vancomycin vancomycin No vancomycin [place] 125 mg 125 mg 125 mg [facility] capsule capsule capsule Urolog y alfuzosin alfuzosin No alfuzosin [place] ER 10 mg ER 10 mg ER 10 mg Met ro tablet,exte tablet,exte tablet,ext Urology nded nded ended release 24 release 24 release 24 hr Take 2 hr Take 2 hr Take 2 tablets tablets tablets every day every day every day by oral by oral by oral route. route. route. amantadine amantadine No amantadine [place] HCl 100 mg HCl 100 mg HCl 100 mg [facility] tablet tablet tablet Urology amiodarone amiodarone No amiodarone [place] 200 mg 200 mg 200 mg [facility] tablet tablet tablet Urology amlodipine amlodipine No amlodipine [place] 2.5 mg 2.5 mg 2.5 mg [facility] tablet tablet tablet Urology amlodipine amlodipine No amlodipine [place] 5 mg tablet 5 mg tablet 5 mg M etro tablet Urology digoxin 125 digoxin 125 No digoxin [place] mcg (0.125 mcg (0.125 125 mcg [facility] mg) tablet mg) tablet (0.125 mg) Urology tablet duloxetine duloxetine No duloxetine [place] 20 mg 20 mg 20 mg [facility] capsule,del capsule,del capsule,de Urology ayed ayed layed release release release esomeprazol esomeprazol No esomeprazo [place] e magnesium e magnesium le M etro 40 mg 40 mg magnesium Urology capsule,del capsule,del 40 mg ayed ayed capsule,de release release layed release fludrocorti fludrocorti No fludrocort [place] sone 0.1 mg sone 0.1 mg isone 0.1 [facility] tablet tablet mg tablet Urolog y gabapentin gabapentin No gabapentin [place] 300 mg 300 mg 300 mg [facility] capsule capsule capsule Urolog y levothyroxi levothyroxi No levothyrox [place] ne 175 mcg ne 175 mcg ine 175 [facility] tablet tablet mcg tablet Urolo gy Immunizations Ordered Immunization Filled Immunization Date Status Commen ts Source Name Name Pneumococcal 2021-08-22 Completed [facility] Polysaccharide 00:00:00 [facility] Influenza (IM) 2021-08-11 Completed [facility] Preservative Free 00:00:00 [facility]ospita l Pfizer SARS-CoV-2 2021-03-24 Completed [facility] Vaccination 00:00:00 of Medicine Pfizer SARS-CoV-2 2021-03-24 Completed [facility] Vaccination 00:00:00 of Medicine Pfizer SARS-CoV-2 2021-03-24 Completed [facility] Vaccination 00:00:00 of Medicine Pfizer SARS-CoV-2 2021-03-24 Completed [facility] Vaccination 00:00:00 of Medicine Pfizer SARS-CoV-2 2021-03-24 Completed [facility] Vaccination 00:00:00 of Medicine Pfizer SARS-CoV-2 2021-03-24 Completed [facility] Vaccination 00:00:00 of Medicine PFIZER COVID-19 MRNA 2021-03-24 Completed [facility] VACCINATION 00:00:00 [facility] PFIZER COVID-19 MRNA 2020-09-23 Completed [facility] VACCINATION 00:00:00 [facility] PFIZER COVID-19 MRNA 2020-09-02 Completed [facility] VACCINATION 00:00:00 [facility] FLUZONE HIGH-DOSE PF 2020-05-04 Completed [facility] 00:00:00 Hospital FLUZONE QUAD 2018-05-11 Completed [facility] 00:00:00 Hospital Vital Signs Vital Name Observation Time Observation Value Comments Source HEIGHT 2020-12-20 06:00:00 193 cm WEIGHT 2020-12-20 06:00:00 75.7 kg HEIGHT 2020-12-19 13:14:00 193 cm WEIGHT 2020-12-19 13:14:00 74.844 kg Systolic blood 2022-07-12 17:13:00 138 mm[Hg] [facility] Medicine Diastolic blood 2022-07-12 17:13:00 88 mm[Hg] [facility] Medicine Heart rate 2022-07-12 17:13:00 56 /min [facility] Body temperature 2022-07-12 17:13:00 36.44 [facility] Respiratory rate 2022-07-12 17:13:00 17 /min [facility] Body height 2022-07-12 17:13:00 193 cm [facility] of [facility] Body weight 2022-07-12 17:13:00 67.042 kg [facility] BMI 2022-07-12 17:13:00 17.99 kg/m2 [facility] Systolic blood 2022-04-17 21:38:00 109 mm[Hg] [facility] Medicine Diastolic blood 2022-04-17 21:38:00 69 mm[Hg] [facility] Medicine Heart rate 2022-04-17 21:38:00 71 /min [facility] Body height 2022-04-17 21:38:00 193 cm [facility] C [facility] Body weight 2022-04-17 21:38:00 68.493 kg [facility] BMI 2022-04-17 21:38:00 18.38 kg/m2 [facility] Systolic blood 2022-03-25 14:00:00 135 mm[Hg] [facility] pressure Medicine Diastolic blood 2022-03-25 14:00:00 85 mm[Hg] [facility] Medicine Heart rate 2022-03-25 14:00:00 63 /min [facility] Body temperature 2022-03-25 14:00:00 36.72 [facility] Respiratory rate 2022-03-25 14:00:00 16 /min [facility] Body height 2022-03-25 14:00:00 193 cm [facility] Body weight 2022-03-25 14:00:00 68.947 kg [facility] BMI 2022-03-25 14:00:00 18.50 kg/m2 [facility] Oxygen saturation in 2022-03-25 14:00:00 99 /min [facility] Arterial blood by Medicine Pulse oximetry HEIGHT 2022-03-12 06:25:00 188 cm WEIGHT 2022-03-12 06:25:00 68.675 kg HEIGHT 2022-02-28 11:43:00 193 cm WEIGHT 2022-02-28 11:43:00 71.668 kg HEIGHT 2022-03-12 06:25:00 188 cm WEIGHT 2022-03-12 06:25:00 68.675 kg HEIGHT 2022-02-28 11:43:00 193 cm WEIGHT 2022-02-28 11:43:00 71.668 kg HEIGHT 2022-03-12 06:25:00 188 cm WEIGHT 2022-03-12 06:25:00 68.675 kg HEIGHT 2022-02-28 11:43:00 193 cm WEIGHT 2022-02-28 11:43:00 71.668 kg Systolic blood 2022-02-04 14:16:00 98 mm[Hg] [facility] pressure Medicine Diastolic blood 2022-02-04 14:16:00 64 mm[Hg] [facility] Medicine Heart rate 2022-02-04 14:16:00 71 /min [facility] Body temperature 2022-02-04 14:16:00 36.78 [facility] Respiratory rate 2022-02-04 14:16:00 16 /min [facility] Body height 2022-02-04 14:16:00 193 cm [facility] Body weight 2022-02-04 14:16:00 70.308 kg [facility] BMI 2022-02-04 14:16:00 18.87 kg/m2 [facility] Oxygen saturation in 2022-02-04 14:16:00 99 /min [facility] Arterial blood by Medicine Pulse oximetry Systolic blood 2022-01-11 13:46:00 98 mm[Hg] [facility] pressure Medicine Diastolic blood 2022-01-11 13:46:00 60 mm[Hg] [facility] pressure Medicine Heart rate 2022-01-11 13:46:00 68 /min [facility] Body height 2022-01-11 13:46:00 193 cm [facility] Body weight 2022-01-11 13:46:00 69.854 kg [facility] BMI 2022-01-11 13:46:00 18.75 kg/m2 [facility] Systolic blood 2021-10-15 14:49:00 128 mm[Hg] [facility] pressure Medicine Diastolic blood 2021-10-15 14:49:00 76 mm[Hg] [facility] Medicine Heart rate 2021-10-15 14:49:00 65 /min [facility] ol[facility] of Medicine Respiratory rate 2021-10-15 14:49:00 16 /min [facility] Body height 2021-10-15 14:49:00 193 cm [facility] Body weight 2021-10-15 14:49:00 72.485 kg [facility] of Medicine BMI 2021-10-15 14:49:00 19.45 kg/m2 [facility] Systolic blood 2021-04-16 15:06:00 96 mm[Hg] [facility] pressure Medicine Diastolic blood 2021-04-16 15:06:00 63 mm[Hg] [facility] Medicine Heart rate 2021-04-16 15:06:00 69 /min [facility] Body height 2021-04-16 15:06:00 193 cm [facility] Body weight 2021-04-16 15:06:00 74.39 kg [facility] BMI 2021-04-16 15:06:00 19.96 kg/m2 [facility] Medicine Systolic blood 2020-12-18 14:09:00 169 mm[Hg] [facility] pressure Medicine Diastolic blood 2020-12-18 14:09:00 108 mm[Hg] [facility] pressure Medicine Heart rate 2020-12-18 14:09:00 67 /min [facility] Body temperature 2020-12-18 14:09:00 36.28 Vaishnavi [facility] Respiratory rate 2020-12-18 14:09:00 16 /min [facility] Body height 2020-12-18 14:09:00 193 cm [facility] Body weight 2020-12-18 14:09:00 75.841 kg [facility] BMI 2020-12-18 14:09:00 20.35 [facility]2 [facility] Oxygen saturation in 2020-12-18 14:09:00 100 /min [facility] blood by [facility] Pulse oximetry Systolic blood 2020-11-09 15:14:00 99 mm[Hg] [facility] pressure Medicine Diastolic blood 2020-11-09 15:14:00 71 mm[Hg] [facility] Medicine Heart rate 2020-11-09 15:14:00 128 /min [facility] Body height 2020-11-09 15:14:00 193 [facility] Body weight 2020-11-09 15:14:00 76.204 kg [facility] BMI 2020-11-09 15:14:00 20.45 kg/m2 [facility] Systolic blood 2020-09-27 16:10:00 121 mm[Hg] [facility] pressure Medicine Diastolic blood 2020-09-27 16:10:00 80 mm[Hg] [facility] pressure Medicine Heart rate 2020-09-27 16:10:00 70 /min [facility] Body height 2020-09-27 16:10:00 193 cm [facility] Body weight 2020-09-27 16:10:00 83.915 kg [facility] BMI 2020-09-27 16:10:00 22.52 kg/m2 [facility] Systolic blood 2020-09-25 15:40:00 121 mm[Hg] [facility] pressure Medicine Diastolic blood 2020-09-25 15:40:00 85 mm[Hg] [facility] pressure Medicine Heart rate 2020-09-25 15:40:00 64 /min [facility] Body temperature 2020-09-25 15:40:00 36.22 Vaishnavi [facility] Respiratory rate 2020-09-25 15:40:00 16 /min [facility] Body height 2020-09-25 15:40:00 193 cm [facility] Body weight 2020-09-25 15:40:00 83.008 kg [facility] BMI 2020-09-25 15:40:00 22.28 kg/m2 [facility] Oxygen saturation in 2020-09-25 15:40:00 100 /min [facility] Arterial blood by [facility] Pulse oximetry HEIGHT 2020-09-08 10:50:00 193 cm WEIGHT 2020-09-08 10:50:00 83.144 kg HEIGHT 2020-09-08 10:50:00 193 cm WEIGHT 2020-09-08 10:50:00 83.144 kg Systolic blood 2019-10-12 16:12:00 177 mm[Hg] [facility] pressure Medicine Diastolic blood 2019-10-12 16:12:00 107 mm[Hg] [facility] pressure Medicine Heart rate 2019-10-12 16:12:00 58 /min [facility] Body height 2019-10-12 16:12:00 193 cm [facility] Body weight 2019-10-12 16:12:00 83.915 kg [facility] BMI 2019-10-12 16:12:00 22.52 kg/m2 [facility] Systolic blood 2019-09-21 19:28:00 139 mm[Hg] [facility] pressure Medicine Diastolic blood 2019-09-21 19:28:00 97 mm[Hg] [facility] pressure Medicine Heart rate 2019-09-21 19:28:00 56 /min [facility] Body height 2019-09-21 19:28:00 193 cm [facility] Body weight 2019-09-21 19:28:00 82.555 kg [facility] BMI 2019-09-21 19:28:00 22.15 kg/m2 [facility] Systolic blood 2019-08-23 18:15:00 125 mm[Hg] [facility] of pressure Medicine Diastolic blood 2019-08-23 18:15:00 86 mm[Hg] [facility] of pressure Medicine Heart rate 2019-08-23 18:15:00 65 /min [facility] Body temperature 2019-08-23 18:15:00 36.5 Vaishnavi [facility] Respiratory rate 2019-08-23 18:15:00 14 /min [facility] Body height 2019-08-23 18:15:00 193 cm [facility] Body weight 2019-08-23 18:15:00 83.915 kg [facility] BMI 2019-08-23 18:15:00 22.52 kg/m2 [facility] Oxygen saturation in 2019-08-23 18:15:00 99 /min [facility] Arterial blood by [facility] Pulse oximetry Systolic blood 2019-03-04 18:59:00 155 mm[Hg] [facility] of pressure Medicine Diastolic blood 2019-03-04 18:59:00 96 mm[Hg] [facility] pressure Medicine Heart rate 2019-03-04 18:59:00 63 /min [facility] Body height 2019-03-04 18:59:00 193 cm [facility] Body weight 2019-03-04 18:59:00 87.998 kg [facility] BMI 2019-03-04 18:59:00 23.61 kg/m2 [facility] Systolic blood 2022-03-19 18:09:00 123 mm[Hg] [facility] pressure Diastolic blood 2022-03-19 18:09:00 81 mm[Hg] [facility] pressure Heart rate 2022-03-19 18:09:00 71 /min [facility] Body height 2022-03-19 18:09:00 193 cm [facility] Body weight 2022-03-19 18:09:00 68.947 kg [facility] BMI 2022-03-19 18:09:00 18.50 kg/m2 [facility] Systolic blood 2022-03-12 09:50:00 151 mm[Hg] [facility] Diastolic blood 2022-03-12 09:50:00 80 mm[Hg] [facility] Heart rate 2022-03-12 09:50:00 62 /min [facility] Body temperature 2022-03-12 09:50:00 36.22 Vaishnavi [facility] Respiratory rate 2022-03-12 09:50:00 16 /min [facility] Oxygen saturation in 2022-03-12 09:50:00 95 /min [facility] Arterial blood by Medical Ce nter Pulse oximetry Body height 2022-03-12 06:25:00 188 cm [facility] Body weight 2022-03-12 06:25:00 68.675 kg [facility] BMI 2022-03-12 06:25:00 19.44 kg/m2 [facility] Oxygen saturation in 2021-12-21 18:12:00 99 /min [facility] Arterial blood by Pulse oximetry Respiratory rate 2021-12-03 20:45:00 14 /min [facility] Body temperature 2021-12-03 18:05:00 35.83 Vaishnavi [facility] Procedures Procedure Date / Time Performing Clinician Source Performed MT BREATHING CAPACITY 2022-07-12 11:53:13 [facility] ABSOLUTE LYMPHOCYTE COUNT 2022-04-26 08:05:04 [facility] COMPREHENSIVE METABOLIC 2022-04-26 08:05:04 [facility] PANEL Medicine IMMUNOGLOBULIN PROFILE 2022-04-26 08:05:04 [facility] CBC W/AUTO DIFF WITH 2022-04-17 12:22:33 [facility] COMPREHENSIVE METABOLIC 2022-04-17 12:22:33 [facility] PANEL Medicine IMMUNOGLOBULIN PROFILE 2022-04-17 12:22:33 [facility] FL FLUORO NON-SPECIFIC UP 2022-03-12 08:50:00 Abraham Marley [facility] TO 1 HOUR Medical Center CREATION, LESION, 2022-03-12 07:15:[address] [facility] TRIGEMINAL GANGLION, Medical [address] STEREOTACTIC PROCEDURE W/ C-ARM 2022-03-12 07:15:00 Renee Anette [facility] TYPE AND SCREEN, 2022-03-12 06:36:00 Renee Anette [facility] XR CHEST 2 VW 2021-12-28 20:24:00 Pancho [facility] B NATRIURETIC PEPTIDE 2021-12-28 19:53:00 Hosea Deleon [facility] COMPREHENSIVE METABOLIC 2021-12-28 19:53:00 Pancho [facility] PANEL CBC WITH PLATELET AND 2021-12-28 19:53:00 [facility] DIFFERENTIAL ESTIMATED GFR 2021-12-28 19:53:00 [facility] MRI BRAIN & ORBIT W WO 2021-12-21 19:44:31 Mohit [facility] CONTRAST [place] OCT, OPTIC NERVE - OU - 2021-12-12 16:09:44 Memo [facility] BOTH EYES AUTOMATED VISUAL FIELD, 2021-12-12 16:09:39 Memo [facility] EXTENDED - OU - BOTH EYES ECG 12-LEAD 2021-12-03 18:24:26 [facility] ACTIVATED CLOTTING TIME 2021-12-03 17:25:00 [facility] EP COMPLETE EP STUDY W 2021-12-03 17:21:26 [facility] ABLATION PULMONARY VEIN ACTIVATED CLOTTING TIME 2021-12-03 16:55:00 [facility] ACTIVATED CLOTTING TIME 2021-12-03 15:57:00 [facility] ACTIVATED CLOTTING TIME 2021-12-03 15:32:00 [facility] ACTIVATED CLOTTING TIME 2021-12-03 14:41:00 [facility] ACTIVATED CLOTTING TIME 2021-12-03 14:11:00 [facility] ACTIVATED CLOTTING TIME 2021-12-03 13:47:00 [facility] ACTIVATED CLOTTING TIME 2021-12-03 13:37:00 Rami, [facility] ACTIVATED CLOTTING TIME 2021-12-03 13:30:00 Rami, [facility] ARTERIAL LINE 2021-12-03 13:22:13 Pancho [facility] MT AN ELECTIVE 2021-12-03 13:04:00 Pancho Salazar [facility] ENDOTRACHEAL [employer] TYPE AND SCREEN 2021-12-03 11:56:00 Ram, [facility] ECG PRE/POST OP 2021-12-03 11:23:42 Ram, [facility] PROTHROMBIN TIME WITH INR 2021-11-29 15:36:00 [facility] MAGNESI[facility] LEV[facility] 2021-11-29 15:36:00 [facility] CBC WITH PLATELET AND 2021-11-29 15:36:00 [facility] DIFFERENTIAL COMPREHENSIVE METABOLIC 2021-11-29 15:36:00 [facility] PANEL ESTIMATED GFR 2021-11-29 15:36:00 [facility] SMEAR REVIEW 2021-11-29 15:36:00 [facility] COVID-19 QUALITATIVE 2021-11-29 15:25:00 [facility] RT-PCR ECG PRE/POST OP 2021-10-04 11:46:05 [facility] COVID-19 QUALITATIVE 2021-10-03 21:03[facility] PROT[facility]OM[facility] TIME WITH INR 2021-10-03 21:00:00 [facility] MAGNESIUM LEVEL 2021-10-03 21:00:00 [facility] HC COMPLETE BLD COUNT 2021-10-03 21:00:00 [facility] W/AUTO DIFF COMPREHENSIVE METABOLIC 2021-10-03 21:00:00 [facility] PANEL ESTIMATED GFR 2021-10-03 21:00:00 [facility] COVID-19 QUALITATIVE 2021-09-21 18:50:00 [facility] RT-PCR PROTHROMBIN TIME WITH INR 2021-09-21 18:50:00 [facility] MAGNESIUM LEVEL 2021-09-21 18:50:00 [facility] HC COMPLETE BLD COUNT 2021-09-21 18:50:00 [facility] W/AUTO DIFF COMPREHENSIVE METABOLIC 2021-09-21 18:50:00 [facility] PANEL ESTIMATED GFR 2021-09-21 18:50:00 [facility] ECG 12-LEAD 2021-09-18 19:50:56 Roque Burk Plan of Care Planned Activity Planned Date Details Comments Source Future Scheduled 2023-03-[address] [facility] Test 00:00[facility] (12+) [code = Tobacco Cessation Counseling and Screening (12+)] Future Scheduled 2023-03-[address] [facility] Test 00:00:00 [facility] (12+) [code = Tobacco Cessation Counseling and Screening (12+)] Future Scheduled 2022-08-18 [facility]OSCOPY [facility]CRE[facility]ING [facility] 11:54:46 [code = COLONOSCOPY Hospital SCREENING] Future Scheduled 2022-08-18 SHINGLES VACCINES (1 [facility] 11:54:46 of 2) [code = Hospital SHINGLES VACCINES (1 of 2)] Future Scheduled 2022-08-18 COVID-19 VACCINE (4 - [facility] 11:54:46 Booster for Pfizer Hospital series) [code = COVID-19 VACCINE (4 - Booster for Pfizer series)] Future Scheduled 2022-08-18 INFLUENZA VACCINE Method [facility] Test 11:54:46 [code = INFLUENZA Hospital VACCINE] Future Scheduled 2022-08-18 65+ [facility]NEUMOCOCCAL [facility] Test 11:54:46 VACCINE (2 - PCV) Hospital [code = 65+ PNEUMOCOCCAL VACCINE (2 - PCV)] Future Scheduled 2022-07-[address] [facility] Test 00:00:00 (12+) [code = Medical Center DEPRESSION SCREENING (12+)] Future Scheduled 2022-07-28 FALLS RISK SCREENING [facility] Test 00:00:00 [code = FALLS RISK Medical C enter SCREENING] Future Scheduled 2022-07-12 Pneumococcal 65+ (1 - [facility] Test 12:10:33 PCV) [code = of Medicine Pneumococcal 65+ (1 - PCV)] Future Scheduled 2022-07-12 TETANUS SHOT (ADULT) [facility] Test 12:10:33 [code = TETANUS SHOT of Medi cine (ADULT)] Future Scheduled 2022-07-12 Hepatitis C screening [facility] Test 12:10:33 (procedure) [code = of Medic ine 005410610] Future Scheduled 2022-07-12 ZOSTER VACCINE (1 of [facility] Test 12:10:33 2) [code = ZOSTER of Medicin e VACCINE (1 of 2)] Future Scheduled 2022-07-12 Abdominal aortic [facility] Test 12:10:33 aneurysm screening of Medici ne (procedure) [code = 973191257] Future Scheduled 2022-07-12 Screening for [facility] Test 12:10:33 malignant neoplasm of of Med icine colon (procedure) [code = 782942005] Future Scheduled 2022-07-12 MEDICARE AWV [facility] Test 12:10:33 (Initial) [code = of Medicin e MEDICARE AWV (Initial)] Future Scheduled 2022-07-12 COVID-19 Vaccine (4 - [facility] Test 12:10:33 Booster for Pfizer of Medici ne series) [code = COVID-19 Vaccine (4 - Booster for Pfizer series)] Future Scheduled 2022-07-12 FLU VACCINE > 6 Postponed from [facility] Test 12:10:33 MONTHS [code = FLU 02/25/2022 of Medici ne VACCINE > 6 MONTHS] (Postpone Reason: Patient declined today) Future Scheduled 2022-07-12 BMI FOLLOW UP PLAN [facility] Test 12:10:33 [code = BMI FOLLOW UP of Med icine PLAN] Future Scheduled 2022-07-12 FALL SCREEN [code = [facility] [employer] [facility] 12:10:33 FALL SCREEN] of Medicine Future Scheduled 2022-07-12 MT BREATHING CAPACITY Ordered: [facility] Test 11:53:13 TEST [code = 54072] 07/12/2022 of Medic ine Future Scheduled 2022-07-12 COMPLETE PFT WITH 1 Occurrences [employer] Test 11:53:13 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 [code starting of Medi cine = 14100] 07/12/2022 until 07/12/2023 Future Scheduled 2022-04-18 Pneumococcal 65+ (1 - [facility] [employer] Test 08:17:58 PCV) [code = of Medicine Pneumococcal 65+ (1 - PCV)] Future Scheduled 2022-04-18 TETANUS SHOT (ADULT) [facility] [employer] Test 08:17:58 [code = TETANUS SHOT of Medi cine (ADULT)] Future Scheduled 2022-04-18 Hepatitis C screening [facility] [employer] [facility] 08:17:58 (procedure) [code = of Medic ine 664872417] Future Scheduled 2022-04-18 ZOSTER VACCINE (1 of [facility] Test 08:17:58 2) [code = ZOSTER of Medicin e VACCINE (1 of 2)] Future Scheduled 2022-04-18 Abdominal aortic [facility] Test 08:17:58 aneurysm screening of Medici ne (procedure) [code = 470161966] Future Scheduled 2022-04-18 Screening for [facility]ge Test 08:17:58 malignant neoplasm of of Med icine colon (procedure) [code = 663692868] Future Scheduled 2022-04-18 MEDICARE AWV [facility] Test 08:17:58 (Initial) [code = of Medicin e MEDICARE AWV (Initial)] Future Scheduled 2022-04-18 COVID-19 Vaccine (4 - [facility] Test 08:17:58 Booster for Pfizer of Medici ne series) [code = COVID-19 Vaccine (4 - Booster for Pfizer series)] Future Scheduled 2022-04-18 FLU VACCINE > 6 Postponed from [facility] Test 08:17:58 MONTHS [code = FLU 02/25/2022 of Medici ne VACCINE > 6 MONTHS] (Postpone Reason: Patient declined today) Future Scheduled 2022-04-18 BMI FOLLOW UP PLAN [facility] Test 08:17:58 [code = BMI FOLLOW UP of Med icine PLAN] Future Scheduled 2022-04-18 FALL SCREEN [code = [employer] Test 08:17:58 FALL SCREEN] of Medicine Future Scheduled 2022-04-17 CBC W/AUTO DIFF WITH Ordered: [facility] [employer] Test 12:22:33 PLATELETS [code = 04/17/2022 of Medicin e 16354-7] Future Scheduled 2022-04-17 COMPREHENSIVE Ordered: [facility] Test 12:22:33 METABOLIC PANEL [code 04/17/2022 of Med icine = 54764-7] Future Scheduled 2022-04-17 IMMUNOGLOBULIN Ordered: [facility] Test 12:22:33 PROFILE [code = 04/17/2022 of Medicine 73407-5] Future Scheduled 2022-04-16 Pneumococcal 65+ (1 - [facility] [employer] Test 19:33:28 PCV) [code = of Medicine Pneumococcal 65+ (1 - PCV)] Future Scheduled 2022-04-16 TETANUS SHOT (ADULT) [facility] [employer] Test 19:33:28 [code = TETANUS SHOT of Medi cine (ADULT)] Future Scheduled 2022-04-16 Hepatitis C screening [facility] Test 19:33:28 (procedure) [code = of Medic ine 713886832] Future Scheduled 2022-04-16 ZOSTER VACCINE (1 of [facility] Test 19:33:28 2) [code = ZOSTER of Medicin e VACCINE (1 of 2)] Future Scheduled 2022-04-16 Abdominal aortic [facility] Test 19:33:28 aneurysm screening of Medici ne (procedure) [code = 718509852] Future Scheduled 2022-04-16 Screening for [facility] Test 19:33:28 malignant neoplasm of of Med icine colon (procedure) [code = 439667597] Future Scheduled 2022-04-16 MEDICARE AWV [facility] Test 19:33:28 (Initial) [code = of Medicin e MEDICARE AWV (Initial)] Future Scheduled 2022-04-16 COVID-19 Vaccine (4 - [facility] [employer] Test 19:33:28 Booster for Pfizer of Medici ne series) [code = COVID-19 Vaccine (4 - Booster for Pfizer series)] Future Scheduled 2022-04-16 FLU VACCINE > 6 [facility] Test 19:33:28 MONTHS [code = FLU of Medici ne VACCINE > 6 MONTHS] Future Scheduled 2022-04-16 BMI FOLLOW UP PLAN [facility] Test 19:33:28 [code = BMI FOLLOW UP of Med icine PLAN] Future Scheduled 2022-04-16 FALL SCREEN [code = [employer] [facility] 19:33:28 FALL SCREEN] of Medicine Future Scheduled 2022-04-02 Pneumococcal 65+ (1 - [facility] [employer] Test 04:36:38 PCV) [code = of Medicine Pneumococcal 65+ (1 - PCV)] Future Scheduled 2022-04-02 TETANUS SHOT (ADULT) [facility] [employer] Test 04:36:38 [code = TETANUS SHOT of Medi cine (ADULT)] Future Scheduled 2022-04-02 Hepatitis C screening [employer] [facility] 04:36:38 (procedure) [code = of Medic ine 031558174] Future Scheduled 2022-04-02 ZOSTER VACCINE ([address] [facility] Test 04:36:38 2) [code = ZOSTER of Medicin e VACCINE (1 of 2)] Future Scheduled 2022-04-02 Abdominal aortic [facility] Test 04:36:38 aneurysm screening of Medici ne (procedure) [code = 836688717] Future Scheduled 2022-04-02 Screening for [facility] Test 04:36:38 malignant neoplasm of of Med icine colon (procedure) [code = 412742113] Future Scheduled 2022-04-02 MEDICARE AWV [facility] Test 04:36:38 (Initial) [code = of Medicin e MEDICARE AWV (Initial)] Future Scheduled 2022-04-02 COVID-19 Vaccine (4 - [facility] [employer] Test 04:36:38 Booster for Pfizer of Medici ne series) [code = COVID-19 Vaccine (4 - Booster for Pfizer series)] Future Scheduled 2022-04-02 FLU VACCINE > 6 [facility] C [facility] Test 04:36:38 MONTHS [code = FLU of Medici ne VACCINE > 6 MONTHS] Future Scheduled 2022-04-02 BMI FOLLOW UP PLAN [facility] Test 04:36:38 [code = BMI FOLLOW UP of Med icine PLAN] Future Scheduled 2022-04-02 FALL SCREEN [code = [employer] Test 04:36:38 FALL SCREEN] of Medicine Future Scheduled 2022-03-[address] [facility] Test 00:00:00 (#1) [code = Medical Center INFLUENZA VACCINE (#1)] Future Scheduled 2022-03-[address] [facility] Test 00:00:00 (#1) [code = Medical Center INFLUENZA VACCINE (#1)] Future Scheduled 2022-02-10 Pneumococcal 65+ (1 - [facility] [employer] Test 18:07:33 PCV) [code = of Medicine Pneumococcal 65+ (1 - PCV)] Future Scheduled 2022-02-10 TETANUS SHOT (ADULT) [facility] [employer] [facility] 18:07:33 [code = TETANUS SHOT of Medi cine (ADULT)] Future Scheduled 2022-02-10 Hepatitis C screening [employer] [facility] 18:07:33 (procedure) [code = of Medic ine [id number]] Future Scheduled 2022-02-10 ZOSTER VACCINE ([address] [facility] [employer] Test 18:07:33 2) [code = ZOSTER of Medicin e VACCINE (1 of 2)] Future Scheduled 2022-02-10 Abdominal aortic [facility] Test 18:07:33 aneurysm screening of Medici ne (procedure) [code = 853174812] Future Scheduled 2022-02-10 Screening for [facility] Test 18:07:33 malignant neoplasm of of Med icine colon (procedure) [code = 267121586] Future Scheduled 2022-02-10 MEDICARE AWV [facility] Test 18:07:33 (Initial) [code = of Medicin e MEDICARE AWV (Initial)] Future Scheduled 2022-02-10 COVID-19 Vaccine (4 - [facility] [employer] [facility] 18:07:33 Booster for Pfizer of Medici ne series) [code = COVID-19 Vaccine (4 - Booster for Pfizer series)] Future Scheduled 2022-02-10 FLU VACCINE > 6 [facility] [employer] Test 18:07:33 MONTHS [code = FLU of Medici ne VACCINE > 6 MONTHS] Future Scheduled 2022-02-10 FALL SCREEN [code = [employer] Test 18:07:33 FALL SCREEN] of Medicine Future Scheduled 2022-01-14 Pneumococcal 65+ (1 - [employer] Test 07:18:27 PCV) [code = of Medicine Pneumococcal 65+ (1 - PCV)] Future Scheduled 2022-01-14 TETANUS SHOT (ADULT) [employer] [facility] 07:18:27 [code = TETANUS SHOT of Medi cine (ADULT)] Future Scheduled 2022-01-14 Hepatitis C screening [employer] Test 07:18:27 (procedure) [code = of Medic ine [id number]] Future Scheduled 2022-01-14 ZOSTER VACCINE (1 of [employer] Test 07:18:27 2) [code = ZOSTER of Medicin e VACCINE (1 of 2)] Future Scheduled 2022-01-14 Abdominal aortic [employer] Test 07:18:27 aneurysm screening of Medici ne (procedure) [code = 885075921] Future Scheduled 2022-01-14 Screening for [facility] [employer] Test 07:18:27 malignant neoplasm of of Med icine colon (procedure) [code = 549189119] Future Scheduled 2022-01-14 MEDICARE AWV [facility] [employer] Test 07:18:27 (Initial) [code = of Medicin e MEDICARE AWV (Initial)] Future Scheduled 2022-01-14 COVID-19 Vaccine (4 - [employer] Test 07:18:27 Booster for Pfizer of Medici ne series) [code = COVID-19 Vaccine (4 - Booster for Pfizer series)] Future Scheduled 2022-01-14 FLU VACCINE > 6 [facility] [employer] Test 07:18:27 MONTHS [code = FLU of Medici ne VACCINE > 6 MONTHS] Future Scheduled 2022-01-14 FALL SCREEN [code = [employer] [facility] 07:18:27 FALL SCREEN] of Medicine Future Scheduled 2021-10-16 TETANUS SHOT (ADULT) [employer] Test 07:31:08 [code = TETANUS SHOT of Medi cine (ADULT)] Future Scheduled 2021-10-16 Hepatitis C screening [employer] Test 07:31:08 (procedure) [code = of Medic ine 534675046] Future Scheduled 2021-10-16 ZOSTER VACCINE (1 of [employer] Test 07:31:08 2) [code = ZOSTER of Medicin e VACCINE (1 of 2)] Future Scheduled 2021-10-16 Abdominal aortic [facility] [employer] Test 07:31:08 aneurysm screening of Medici ne (procedure) [code = 128678020] Future Scheduled 2021-10-16 Pneumococcal 65+ (1 [employer] Test 07:31:08 of 1 - PPSV23) [code of Medi cine = Pneumococcal 65+ (1 of 1 - PPSV23)] Future Scheduled 2021-10-16 Screening for [facility] [employer] Test 07:31:08 malignant neoplasm of of Med icine colon (procedure) [code = 028880012] Future Scheduled 2021-10-16 MEDICARE AWV [facility] [employer] [employer] Test 07:31:08 (Initial) [code = of Medicin e MEDICARE AWV (Initial)] Future Scheduled 2021-10-16 MEDICARE IPPE [facility] [employer] Test 07:31:08 (WELCOME TO MEDICARE) of Med icine [code = MEDICARE IPPE (WELCOME TO MEDICARE)] Future Scheduled 2021-10-16 COVID-19 Vaccine (3 - [employer] [facility] 07:31:08 Booster for Pfizer of Medici ne series) [code = COVID-19 Vaccine (3 - Booster for Pfizer series)] Future Scheduled 2021-10-16 FLU VACCINE > 6 [facility] [employer] Test 07:31:08 MONTHS [code = FLU of Medici ne VACCINE > 6 MONTHS] Future Scheduled 2021-10-16 FALL SCREEN [code = [employer] [facility] 07:31:08 FALL SCREEN] of Medicine Future Scheduled 2021-07-[address] [facility] Test 00:00:00 (12+) [code = Medical Center DEPRESSION SCREENING (12+)] Future Scheduled 2021-07-28 FALLS RISK SCREENING [facility] Test 00:00:00 [code = FALLS RISK Medical C enter SCREENING] Future Scheduled 2021-07-24 COVID-19 VACCINE (4 - [facility] 00:[facility]:00 Booster for Pfizer Medical C enter series) [code = COVID-19 VACCINE (4 - Booster for Pfizer series)] Future Scheduled 2021-07-24 COVID-19 VACCINE (4 - [facility] Test 00:00:00 Booster for Pfizer Medical C enter series) [code = COVID-19 VACCINE (4 - Booster for Pfizer series)] Future Scheduled 2021-04-16 TETANUS SHOT (ADULT) [employer] 10:09:56 [code = TETANUS SHOT of Medi cine (ADULT)] Future Scheduled 2021-04-16 Hepatitis C screening [employer] Test 10:09:56 (procedure) [code = of Medic ine 911675004] Future Scheduled 2021-04-16 ZOSTER VACCINE (1 of [employer] Test 10:09:56 2) [code = ZOSTER of Medicin e VACCINE (1 of 2)] Future Scheduled 2021-04-16 Abdominal aortic [facility] Test 10:09:56 aneurysm screening of Medici ne (procedure) [code = 389575053] Future Scheduled 2021-04-16 PNEUMOVAX >=65 [facility] [employer] Test 10:09:56 (PPSV23) [code = of Medicine PNEUMOVAX >=65 (PPSV23)] Future Scheduled 2021-04-16 Screening for [facility] [employer] Test 10:09:56 malignant neoplasm of of Med icine colon (procedure) [code = 696740146] Future Scheduled 2021-04-16 FLU VACCINE > 6 [facility] [employer] Test 10:09:56 MONTHS [code = FLU of Medici ne VACCINE > 6 MONTHS] Future Scheduled 2021-04-16 FALL SCREEN [code = [employer] 10:09:56 FALL SCREEN] of Medicine Future Scheduled 2021-04-16 TETANUS SHOT (ADULT) [facility] [employer] Test 10:09:56 [code = TETANUS SHOT of Medi cine (ADULT)] Future Scheduled 2021-04-16 Hepatitis C screening [facility] Test 10:09:56 (procedure) [code = of Medic ine 407418142] Future Scheduled 2021-04-16 ZOSTER VACCINE (1 of [facility] Test 10:09:56 2) [code = ZOSTER of Medicin e VACCINE (1 of 2)] Future Scheduled 2021-04-16 Abdominal aortic [facility] Test 10:09:56 aneurysm screening of Medici ne (procedure) [code = 992083447] Future Scheduled 2021-04-16 PNEUMOVAX >=65 [facility] Test 10:09:56 (PPSV23) [code = of Medicine PNEUMOVAX >=65 (PPSV23)] Future Scheduled 2021-04-16 Screening for [facility] [employer] Test 10:09:56 malignant neoplasm of of Med icine colon (procedure) [code = 019635546] Future Scheduled 2021-04-16 FLU VACCINE > 6 [facility] [employer] Test 10:09:56 MONTHS [code = FLU of Medici ne VACCINE > 6 MONTHS] Future Scheduled 2021-04-16 FALL SCREEN [code = [employer] [facility] 10:09:56 FALL SCREEN] of Medicine Future Scheduled 2020-12-21 TETANUS SHOT (ADULT) [employer] [facility] 13:03:52 [code = TETANUS SHOT of Medi cine (ADULT)] Future Scheduled 2020-12-21 Hepatitis C screening [facility] Test 13:03:52 (procedure) [code = of Medic ine 370998833] Future Scheduled 2020-12-21 ZOSTER VACCINE (1 of [facility] Test 13:03:52 2) [code = ZOSTER of Medicin e VACCINE (1 of 2)] Future Scheduled 2020-12-21 Abdominal aortic [facility] Test 13:03:52 aneurysm screening of Medici ne (procedure) [code = 007532098] Future Scheduled 2020-12-21 PNEUMOVAX >=65 [facility] [employer] Test 13:03:52 (PPSV23) [code = of Medicine PNEUMOVAX >=65 (PPSV23)] Future Scheduled 2020-12-21 Screening for [facility] [employer] Test 13:03:52 malignant neoplasm of of Med icine colon (procedure) [code = 938871754] Future Scheduled 2020-12-21 FLU VACCINE > 6 [facility] [employer] Test 13:03:52 MONTHS [code = FLU of Medici ne VACCINE > 6 MONTHS] Future Scheduled 2020-12-21 FALL SCREEN [code = [facility] Test 13:03:52 FALL SCREEN] of Medicine Future Scheduled 2018-07-[address] [facility] Test 00:00:00 WELLNESS (YEAR 2 or Medical Center FIRST YEAR if no IPPE) [code = MEDICARE ANNUAL WELLNESS (YEAR 2 or FIRST YEAR if no IPPE)] Future Scheduled 2018-07-[address] [facility] Test 00:00:00 WELLNESS (YEAR 2 or Medical Center FIRST YEAR if no IPPE) [code = MEDICARE ANNUAL WELLNESS (YEAR 2 or FIRST YEAR if no IPPE)] Future Scheduled 2011-11-[address] [facility] Test 00:00:00 aneurysm screening Medical C enter (procedure) [code = 513129362] Future Scheduled 2011-11-17 PNEUMOCOCCAL 65+ YRS [facility] Test 00:00:00 (1 - PCV) [code = Medical Ce nter PNEUMOCOCCAL 65+ YRS (1 - PCV)] Future Scheduled 2011-11-[address] [facility] Test 00:00:00 aneurysm screening Medical C enter (procedure) [code = 017321837] Future Scheduled 2011-11-17 PNEUMOCOCCAL 65+ YRS [facility] Test 00:00:00 (1 - PCV) [code = Medical Ce nter PNEUMOCOCCAL 65+ YRS (1 - PCV)] Future Scheduled 1996 SHINGLES VACCINES ([address] [facility] Test 00:00:00 of 2) [code = Medical Center SHINGLES VACCINES (1 of 2)] Future Scheduled 1996 SHINGLES VACCINES ([address] [facility] Test 00:00:00 of 2) [code = Medical Center SHINGLES VACCINES (1 of 2)] Future Scheduled 1965 DTAP/TDAP/TD VACCINES [facility] Test 00:00:00 (1 - Tdap) [code = Medical C enter DTAP/TDAP/TD VACCINES (1 - Tdap)] Future Scheduled 1965 DTAP/TDAP/TD VACCINES [facility] Test 00:00:00 (1 - Tdap) [code = Medical C enter DTAP/TDAP/TD VACCINES (1 - Tdap)] Future Scheduled 1964 HEPATITIS C [facility]CREENING [facility] Test 00:00:00 [code = HEPATITIS C Medical Center SCREENING] Future Scheduled 1964 HEPATITIS C [facility] Test 00:00:00 [code = HEPATITIS C Medical Center SCREENING] Future Scheduled [address] [facility] Test 00:00:00 (combo) [code = CT Medical C enter Colonography (combo)] Future Scheduled [address] [facility] Test 00:[facility]:00 malignant neoplasm of Medica l Center colon (procedure) [code = 369308339] Future Scheduled [address] [facility] Test 00:00:00 malignant neoplasm of Medica l Center colon (procedure) [code = 910659923] Future Scheduled [address] [facility] Test 00:00:00 malignant neoplasm of Medica l Center colon (procedure) [code = 549040812] Future Scheduled [address] [facility] Test 00:00:00 malignant neoplasm of Medica l Center colon (procedure) [code = 954200545] Future Scheduled 1946 Sigmoidoscopy [code [facility] Test 00:00:00 Sigmoidoscopy] Medical Cente r Future Scheduled [address] [facility] Test 00:00:00 (combo) [code = CT Medical C enter Colonography (combo)] Future Scheduled [address] [facility] Test 00:00:00 malignant neoplasm of Medica l Center colon (procedure) [code = 810472073] Future Scheduled [address] [facility] Test 00:00:00 malignant neoplasm of Medica l Center colon (procedure) [code = 331389543] Future Scheduled [address] [facility] Test 00:00:00 malignant neoplasm of Medica l Center colon (procedure) [code = 266245798] Future Scheduled [address] [facility] Test 00:00:00 malignant neoplasm of Medica l Center colon (procedure) [code = 562134239] Future Scheduled 1946 Sigmoidoscopy [code [facility] Test 00:00:00 Sigmoidoscopy] Medical Holae r Future Scheduled TETANUS SHOT (ADULT) [employer] Test [code = TETANUS SHOT of Medi cine (ADULT)] Future Scheduled HEPATITIS C SCREENING [employer] Test [code = HEPATITIS C of Medic ine SCREENING] Future Scheduled MEDICARE AWV [employer] (Initial) [code = of Medicin e MEDICARE AWV (Initial)] Future Scheduled AAA Screen [code = [employer] [facility] AAA Screen] of Medicine Future Scheduled FALL SCREEN [code = [employer] FALL SCREEN] of Medicine Future Scheduled PNEUMOVAX >=65 [facility] [employer] Test (PPSV23) [code = of Medicine PNEUMOVAX >=65 (PPSV23)] Future Scheduled PREVNAR >= 65 (PCV13) [employer] Test [code = PREVNAR >= 65 of Med icine (PCV13)] Future Scheduled COLON CANCER [facility] [employer] Test SCREENING: of Medicine COLONOSCOPY [code = COLON CANCER SCREENING: COLONOSCOPY] Future Scheduled FLU VACCINE > 6 [employer] Test MONTHS [code = FLU of Medici ne VACCINE > 6 MONTHS] Future Scheduled ABSOLUTE LYMPHOCYTE Ordered: [employer] [facility] COUNT [code = NOCPT] 09/21/2019 of Medi cine Future Scheduled COMPREHENSIVE Ordered: [facility] [employer] Test METABOLIC PANEL [code 09/21/2019 of Med icine = 55052-4] Future Scheduled IMMUNOGLOBULIN [facility] [employer] Test PROFILE [code = of Medicine 47119-9] Future Scheduled TETANUS SHOT (ADULT) [employer] Test [code = TETANUS SHOT of Medi cine (ADULT)] Future Scheduled HEPATITIS C SCREENING [employer] Test [code = HEPATITIS C of Medic ine SCREENING] Future Scheduled MEDICARE AWV [facility] [employer] Test (Initial) [code = of Medicin e MEDICARE AWV (Initial)] Future Scheduled AAA Screen [code = [employer] AAA Screen] of Medicine Future Scheduled FALL SCREEN [code = [employer] FALL SCREEN] of Medicine Future Scheduled PNEUMOVAX >=65 [facility] [employer] Test (PPSV23) [code = of Medicine PNEUMOVAX >=65 (PPSV23)] Future Scheduled PREVNAR >= 65 (PCV13) [employer] Test [code = PREVNAR >= 65 of Med icine (PCV13)] Future Scheduled COLON CANCER [facility] [employer] Test SCREENING: of Medicine COLONOSCOPY [code = COLON CANCER SCREENING: COLONOSCOPY] Future Scheduled FLU VACCINE > 6 [facility] C [employer]lege Test MONTHS [code = FLU of Medici ne VACCINE > 6 MONTHS] Future Scheduled URINALYSIS AUTO Ordered: [facility] [employer] Test W/SCOPE [code = 10/12/2019 of Medicine 53275-3] Future Scheduled TETANUS SHOT (ADULT) [employer] Test [code = TETANUS SHOT of Medi cine (ADULT)] Future Scheduled HEPATITIS C SCREENING [employer] Test [code = HEPATITIS C of Medic ine SCREENING] Future Scheduled MEDICARE AWV [facility] [employer] Test (Initial) [code = of Medicin e MEDICARE AWV (Initial)] Future Scheduled AAA Screen [code = [employer] AAA Screen] of Medicine Future Scheduled FALL SCREEN [code = [employer] FALL SCREEN] of Medicine Future Scheduled PNEUMOVAX >=65 [facility] [employer] Test (PPSV23) [code = of Medicine PNEUMOVAX >=65 (PPSV23)] Future Scheduled PREVNAR >= 65 (PCV13) [employer] Test [code = PREVNAR >= 65 of Med icine (PCV13)] Future Scheduled COLON CANCER [facility] [employer] Test SCREENING: of Medicine COLONOSCOPY [code = COLON CANCER SCREENING: COLONOSCOPY] Future Scheduled FLU VACCINE > 6 [facility] C [employer]lege Test MONTHS [code = FLU of Medici ne VACCINE > 6 MONTHS] Future Scheduled TETANUS SHOT (ADULT) [employer] Test [code = TETANUS SHOT of Medi cine (ADULT)] Future Scheduled HEPATITIS C SCREENING [employer] Test [code = HEPATITIS C of Medic ine SCREENING] Future Scheduled ZOSTER VACCINE (1 of [employer] Test 2) [code = ZOSTER of Medicin e VACCINE (1 of 2)] Future Scheduled AAA Screen [code = [employer] AAA Screen] of Medicine Future Scheduled PNEUMOVAX >=65 [facility] [employer] Test (PPSV23) [code = of Medicine PNEUMOVAX >=65 (PPSV23)] Future Scheduled COLON CANCER [facility] [employer] Test SCREENING: of Medicine COLONOSCOPY [code = COLON CANCER SCREENING: COLONOSCOPY] Future Scheduled MEDICARE AWV [facility] [employer] Test (Initial) [code = of Medicin e MEDICARE AWV (Initial)] Future Scheduled FLU VACCINE > 6 [employer] Test MONTHS [code = FLU of Medici ne VACCINE > 6 MONTHS] Future Scheduled FALL SCREEN [code = [employer] [facility] FALL SCREEN] of Medicine Future Scheduled ABSOLUTE LYMPHOCYTE Ordered: [employer] COUNT [code = NOCPT] 09/27/2020 of Medi cine Future Scheduled COMPREHENSIVE Ordered: [facility] [employer]ge Test METABOLIC PANEL [code 09/27/2020 of Med icine = 08698-5] Future Scheduled IMMUNOGLOBULIN Ordered: [facility] [employer] Test PROFILE [code = 09/27/2020 of Medicine 76270-8] Future Scheduled TETANUS SHOT (ADULT) [employer] Test [code = TETANUS SHOT of Medi cine (ADULT)] Future Scheduled HEPATITIS C SCREENING [employer] Test [code = HEPATITIS C of Medic ine SCREENING] Future Scheduled ZOSTER VACCINE (1 of [employer] Test 2) [code = ZOSTER of Medicin e VACCINE (1 of 2)] Future Scheduled AAA Screen [code = [employer] AAA Screen] of Medicine Future Scheduled PNEUMOVAX >=65 [employer] Test (PPSV23) [code = of Medicine PNEUMOVAX >=65 (PPSV23)] Future Scheduled COLON CANCER [facility] [employer] Test SCREENING: of Medicine COLONOSCOPY [code = COLON CANCER SCREENING: COLONOSCOPY] Future Scheduled MEDICARE AWV [facility] [employer] Test (Initial) [code = of Medicin e MEDICARE AWV (Initial)] Future Scheduled FLU VACCINE > 6 [facility] C [employer]lege Test MONTHS [code = FLU of Medici ne VACCINE > 6 MONTHS] Future Scheduled FALL SCREEN [code = [employer] FALL SCREEN] of Medicine Future Scheduled TETANUS SHOT (ADULT) [employer] Test [code = TETANUS SHOT of Medi cine (ADULT)] Future Scheduled Hepatitis C screening [employer] Test (procedure) [code = of Medic ine 608532643] Future Scheduled ZOSTER VACCINE (1 of [employer] Test 2) [code = ZOSTER of Medicin e VACCINE (1 of 2)] Future Scheduled Abdominal aortic [facility] College Test aneurysm screening of Medici ne (procedure) [code = 107460188] Future Scheduled PNEUMOVAX >=65 [facility] [employer] Test (PPSV23) [code = of Medicine PNEUMOVAX >=65 (PPSV23)] Future Scheduled Screening for [facility] Col [employer]ge Test malignant neoplasm of of Med icine colon (procedure) [code = 418673114] Future Scheduled FLU VACCINE > 6 [facility] C [employer]lege Test MONTHS [code = FLU of Medici ne VACCINE > 6 MONTHS] Future Scheduled FALL SCREEN [code = [employer] FALL SCREEN] of Medicine Future Scheduled IMMUNOGLOBULIN Ordered: [facility] [employer] Test PROFILE [code = 03/04/2019 of Medicine 31148-5] Future Scheduled MEDICARE AWV [code = [employer] MEDICARE AWV] of Medicine Future Scheduled TETANUS SHOT (ADULT) [employer] Test [code = TETANUS SHOT of Medi cine (ADULT)] Future Scheduled HEPATITIS C SCREENING [employer] Test [code = HEPATITIS C of Medic ine SCREENING] Future Scheduled AAA Screen [code = [employer] AAA Screen] of Medicine Future Scheduled PNEUMOVAX >=65 [facility] [employer] Test (PPSV23) [code = of Medicine PNEUMOVAX >=65 (PPSV23)] Future Scheduled PREVNAR >= 65 (PCV13) [employer] Test [code = PREVNAR >= 65 of Med icine (PCV13)] Future Scheduled COLON CANCER [facility] [employer] Test SCREENING: of Medicine COLONOSCOPY [code = COLON CANCER SCREENING: COLONOSCOPY] Future Scheduled FLU VACCINE > 6 [facility] C [employer]lege Test MONTHS [code = FLU of Medici ne VACCINE > 6 MONTHS] Future Scheduled FALL SCREEN [code = [employer] [facility] FALL SCREEN] of Medicine Future Scheduled CULTURE, 2 Occurrences [facility] Test URINE/SENSITIVITY ON starting of Medi cine ALL [code = 81078-8] 10/12/2019 until 10/11/2020 Future Scheduled US RENAL BILATERAL 1 Occurrences [employer] Test [code = 44612] starting of Medicine 10/12/2019 until 10/11/2020 Future Scheduled VIDEO URODYNAMICS 1 Occurrences [facility] Test [code = 13731] starting of Medicine 10/12/2019 until 10/11/2020 Encounters Start End Encounter Admission Attending Care Care Encounter Source Date/Time Date/Time Type Type Clinicians Facility Department ID 2022-02-10 Outpatient [facility] [id number] Common 08:58:00 [facility] 2021-10-04 Outpatient [facility] Common 14:22:01 [facility] 2021-08-22 Outpatient [facility] [id number] Common 14:32:14 [facility] 2021-05-05 Outpatient [facility] Surgery [id number] [facility] 19:55:29 , [facility] 2021-05-05 Outpatient [facility] Surgery [id number] SLE 03:19:02 , ANETTE 2022-07-16 2022-07-16 Office Edd [id number] [place] 14:00:00 15:05:56 Visit [facility] [place] [id number] 3.430.2.7 Hospit a .3.629952 l .8 2022-07-16 2022-07-16 Outpatient [facility] [id number] [place] 00:00:00 00:00:00 SP [place] [facility] 2022-07-12 2022-07-12 Office SILVINO WALKER [id number] [facility] 11:02:27 13:25:19 Visit AMBULATOR 350.1.13.21 College Y 0.2.7.2.686 [id number] Medi geno 315 e 2022-05-03 2022-05-03 Refill Bhargavi, 1.2.840.1 [id number] Method 00:00:00 00:00:00 [place] [id number] 3.430.2.7 Hospit a .3.638058 l .8 2022-05-01 2022-05-01 Outpatient Goldfarb_D [place] [id number] [facility] [place] 00:00:00 00:00:00 [facility] 2022-04-26 2022-04-26 Outpatient [facility] [id number] [facility] 07:27:27 23:59:00 Ilan 2022-04-25 2022-04-25 Outpatient Goldfarb_D [facility] [id number] [facility] [place] 00:00:00 00:00:00 [facility] 2022-04-24 2022-04-24 Outpatient Goldfarb_D [place] [id number] [address] [place] [address] 00:00:00 00:00:00 [facility] 2022-04-24 2022-04-24 [facility] [place] - [id number] [facility] 00:00:00 Tianna Medel: [id number] [facility] JOHANNE Hill [address], [place] [address] , Ph. 2022-04-21 2022-04-21 Outpatient Goldfarb_D [place] [id number] [address] [place] [address] 00:00:00 00:00:00 [facility] 2022-04-17 2022-04-17 Office PHONG Lim [id number] [facility] 11:00:00 12:29:21 Visit Polina Baptiste AMBULATOR 350.1.13.21 College Y 0.2.7.2.686 of [id number] [facility] geno 830 e 2022-04-12 2022-04-12 Office PHONG Valdez [id number] [facility] 13:20:00 13:30:00 Visit Christopher AMBULATOR 350.1.13.21 College P Y 0.2.7.2.686 of [id number] Medi geno 300 e 2022-03-25 2022-03-25 Office R[facility] [facility] 1.2.840.114 [id number] [employer] [facility] 09:20:00 15:18:19 Visit , Anette AMBULATOR 350.1.13.21 College Y 0.2.7.2.686 of [id number] Medi geno 300 e 2022-03-19 2022-03-19 Office Bhargavi, 1.2.840.1 [id number] Methodi 13:30:00 15:40:38 Visit [place] [address]409.1.[address] 3.430.2.7 Hospit a .3.731329 l .8 2022-03-19 2022-03-19 Travel 1.2.840.1 1.2.788.740 9496 [id number] Methodi 00:00:00 00:00:[address] 3.430.2.7 0.2.7.3.698 Ho spita .3.513592 084.8 l .8 2022-03-19 2022-03-19 Outpatient BHARGAVI [facility] [id number] [place] 00:00:00 00:00:00 ROQUE Clement [facility] 2022-03-14 2022-03-14 Outpatient Goldfarb_D [facility] 4755 [id number] [place] 00:00:00 00:00:00 97229 [facility] 2022-03-14 2022-03-14 Yumiko [facility] [place] - [id number] Lucila mills 00:00:00 00:00:00 Tianna Medel: [address] [place] [address], [place] [address] , Ph. 2022-03-14 2022-03-14 Outpatient Tressa [facility] [id number] 00:00:00 00:00:00 Yumiko Vazquez [id number] 2022-03-12 2022-03-12 [facility] [id number] [id number] [facility] 06:06:00 10:33:00 Encounter , [facility] 2022-03-12 2022-03-12 [facility] [id number] [id number] 06:06:00 10:33:00 Encounter , [facility] 2022-03-12 2022-03-12 Outpatient [facility] Surgery [id number] SLE 06:06:00 10:33:00 , [facility] 2022-03-12 2022-03-12 Surgery [facility] [id number] 07:30:00 09:05:00 , [facility] 2022-03-12 2022-03-12 Surgery [facility] [id number] [id number] 07:30:00 09:05:00 , [facility] 2022-03-12 2022-03-12 [facility] [id number] [facility] 07:30[facility]00 08:48:00 [facility] 2022-03-12 2022-03-12 Anesthesia Yenny Nieves [facility] [id number] [facility] 07:30[facility]00 08:48:00 [facility] 2022-03-12 2022-03-12 Travel [facility] [id number] [facility] 00:[facility] 00:00:00 [facility] 2022-03-12 2022-03-12 Travel [facility] [id number] [facility] 00:[facility]00 00:00:00 [facility] 2022-03-11 2022-03-11 Orders Poppy [facility] [id number] 00:00:00 00:00:00 Only [facility] 2022-03-11 2022-03-11 Orders Poppy [facility] [id number] 00:00:00 00:00:00 Only [facility] 2022-03-10 2022-03-10 Outpatient Goldfarb_D [facility] 4755 [place] 00:00:00 00:00:00 74723 [facility] 2022-03-05 2022-03-05 Telephone Bhargavi 1.2.840.1 [id number] [id number] Method 00:00:00 00:00:00 [place] [address]37.1.[address] 3.430.2.7 [facility] a .3.419076 l .8 2022-02-28 2022-02-28 Outpatient SLE SLE [id number] SLE 12:03:22 23:59:00 2022-02-28 2022-02-28 [facility] [id number] 10:30:00 23:59:00 Encounter [facility] 2022-02-28 2022-02-28 [facility] [id number] 10:30:00 23:59:00 Encounter [facility] 2022-02-28 2022-02-28 Travel [facility] [id number] [facility] 00:00:00 00:00:00 [facility] 2022-02-28 2022-02-28 Travel [facility] [id number] [facility] 00:00:00 00:00:00 [facility] 2022-02-04 2022-02-04 Office RENEE [facility] 1.2.840.114 [id number] [employer] [facility] 09:03:26 14:18:27 Visit ANETTE AMBULATOR 350.1.13.21 College Y 0.2.7.2.686 of [id number] [facility] geno 300 e 2022-01-17 2022-01-17 Outpatient Goldfarb_D [facility] 4755 [facility] [place] 05:28:00 05:28:00 27563 [facility] 2022-01-11 2022-01-11 Office PHONG LIM 1.2.840.[id number] [place] [address] 08:38:46 11:30:52 Visit POLINA AMBULATOR 350.1.13.21 College Y 0.2.7.2.686 [id number] [facility] geno 830 e 2021-12-28 2021-12-28 [facility] Hosea Deleon 1.2.840.1 [id number] 2 [id number] Methodi 15:12:45 23:59:00 Encounter Lucius 09339.1.[address] 3.430.2.7 Hospit a .3.698713 l .8 2021-12-28 2021-12-28 [facility] Hosea Deleon 1.2.840.1 [id number] 21 [id number] Methodi 14:20:00 14:25:[address] 3.430.2.7 Hospit a .3.035103 l .8 2021-12-28 2021-12-28 [facility] Hosea Deleon 1.2.840.1 [id number] Methodi 00:00:00 00:00:00 Orders Lucius 95833.1.[address] 3.430.2.7 Hospit a .3.338332 l .8 2021-12-28 2021-12-28 Travel 1.2.840.1 1.2.403.263 1020 [id number] Methodi 00:00:00 00:00:[address] 3.430.2.7 0.2.7.3.698 spita .3.038497 084.8 l .8 2021-12-28 2021-12-28 [facility] 951 [id number] [place] 00:00:00 00:00:[address] 2021-12-28 2021-12-28 Outpatient [facility] 931 [id number] [place] 00:00:00 00:00:[address] 2021-12-21 2021-12-21 [facility] Elva Khoury 1.2.840.1 [id number] 2 [id number] Methodi 12:21:50 23:59:00 Encounter Go 34249.1.[address] 3.430.2.7 Hospit a .3.752669 l .8 2021-12-21 2021-12-21 Travel 1.2.840.1 1.2.019.691 9759 087397 Methodi 00:00:00 00:00:[address] 3.430.2.7 0.2.7.3.698 Ho spita .3.964692 084.8 l .8 2021-12-21 2021-12-21 Outpatient ELVA KHOURY [facility] 502 [id number] [place] 00:00:00 00:00:[address] 2021-12-14 2021-12-14 Travel 1.2.840.1 1.2.267.958 2049 [id number] Methodi 00:00:00 00:00:[address] 3.430.2.7 0.2.7.3.698 Ho spita .3.317131 084.8 l .8 2021-12-12 2021-12-12 Office Elva Khoury 1.2.840.1 [id number] 21 [id number] Methodi 10:00:00 12:20:42 Visit Go 91904.1.[address] 3.430.2.7 Hospit a .3.758984 l .8 2021-12-12 2021-12-12 Travel 1.2.840.1 1.2.092.715 4948 [id number] Methodi 00:00:00 00:00:[address] 3.430.2.7 0.2.7.3.698 Ho spita .3.268011 084.8 l .8 2021-12-12 2021-12-12 Outpatient ELVA KHOURY [facility] [id number] [place] 00:00:00 00:00:[address] 2021-12-03 2021-12-03 [facility] Hosea Deleon 1.2.840.1 [id number] 2 [id number] Methodi 06:01:00 16:02:00 Encounter Lucius 66052.1.[address] 3.430.2.7 Hospit a .3.527972 l .8 2021-12-03 2021-12-03 Anesthesia Karly Morrison 1.2.840.1 1040 [id number] Methodi 07:52:00 13:06:00 Event Pancho Salazar 51584.1.[address] 3.430.2.7 Hospit a .3.052059 l .8 2021-12-03 2021-12-03 Surgery Hosea Deleon 1.2.840.1 [id number] 21 [id number] Methodi 07:30:00 11:45:[address] 3.430.2.7 Hospit a .3.636370 l .8 2021-12-03 2021-12-03 Outpatient HOSEA DELEON [place] [address] 291 [id number] [place] 00:00:00 00:00:[address] 2021-11-29 2021-11-29 [facility] Hosea Deleon 1.2.840.1 [id number] 21 [id number] Methodi 10:30:00 10:45:[address] 3.430.2.7 Hospit a .3.487133 l .8 2021-11-29 2021-11-29 [facility] 1.2.840.1 1.2.075.694 3046 682200 Methodi 00:00:00 00:00:[address] 3.430.2.7 0.2.7.3.698 Ho spita .3.408778 084.8 l .8 2021-11-29 2021-11-29 Outpatient HOSEA DELEON [facility] 954 [id number] [place] 00:00:00 00:00:[address] 2021-10-26 2021-10-26 [facility] Hosea Deleon 1.2.840.1 [id number] Methodi 00:00:00 00:00:00 Orders Lucius 42693.1.[address] 3.430.2.7 Hospit a .3.694993 l .8 2021-10-25 2021-10-25 Outpatient [facility] [id number] 4 [employer] [facility] [employer] [facility] [employer] [facility] 07:29:15 23:59:00 Rolo e 2021-10-15 2021-10-15 Office PHONG Lim 1.2.840.114 [id number] 55 [employer] [facility] [employer] [facility] [employer] [facility] 10:30:00 11:30:50 Visit Polina Baptiste AMBULATOR 350.1.13.21 College Y 0.2.7.2.686 of [id number] Medi geno 830 e 2021-10-15 2021-10-15 Telephone Elva Khoury 1.2.840.1 [id number] Methodi 00:00:00 00:00:[address] 3.430.2.7 Hospit a .3.337025 l .8 2021-10-04 2021-10-04 Surgery Hosea Deleon 1.2.840.1 [id number] 21 [id number] Methodi 07:30:00 08:30:[address] 3.430.2.7 Hospit a .3.327983 l .8 2021-10-04 2021-10-04 [facility] Hosea Deleon 1.2.840.1 [id number] 2 [id number] Methodi 05:20:00 08:25:00 Encounter Lucius 55633.1.[address] 3.430.2.7 Hospit a .3.514688 l .8 2021-10-04 2021-10-04 Anesthesia [facility], 1.2.840.1 [id number] 21 [id number] Methodi 07:30:00 07:30:00 Event Tori 24743.1.[address] 3.430.2.7 Hospit a .3.348451 l .8 2021-10-04 2021-10-04 Outpatient HOSEA DELEON [facility] 021 948 [id number] [place] 00:00:00 00:00:[address] 2021-10-03 2021-10-03 Lab Hosea Deleon 1.2.840.1 [id number] 21 [id number] Methodi 14:30:00 14:45:[address] 3.430.2.7 Hospit a .3.904622 l .8 2021-10-03 2021-10-03 Travel 1.2.840.1 1.2.821.695 4953 241568 Methodi 00:00:00 00:00:[address] 3.430.2.7 0.2.7.3.698 Ho spita .3.673631 084.8 l .8 2021-10-03 2021-10-03 [facility] Hosea Deleon 1.2.840.1 [id number] Methodi 00:00:00 00:00:00 Orders Lucius 98200.1.[address] 3.430.2.7 Hospit a .3.415090 l .8 2021-10-03 2021-10-03 [facility] HOSEA DELEON [facility] 537 [id number] [place] 00:00:00 00:00:[address] 2021-09-24 2021-09-24 Surgery Hosea Deleon 1.2.840.1 [id number] 21 [id number] Methodi 13:05:00 14:35:[address] 3.430.2.7 Hospit a .3.300496 l .8 2021-09-24 2021-09-24 [facility] Hosea Deleon 1.2.840.1 [id number] 2 [id number] Methodi 13:05:00 13:05:00 Encounter Lucius 01001.1.[address] 3.430.2.7 Hospit a .3.087020 l .8 2021-09-21 2021-09-21 [facility] Hosea Deleon 1.2.840.1 [id number] 21 [id number] Methodi 13:45:00 14:00:[address] 3.430.2.7 Hospit a .3.243424 l .8 2021-09-21 2021-09-21 Travel 1.2.840.1 1.2.792.618 7219 [id number] Methodi 00:00:00 00:00:[address] 3.430.2.7 0.2.7.3.698 Ho spita .3.407879 084.8 l .8 2021-09-21 2021-09-21 [facility] Hosea Deleon 1.2.840.1 [id number] Methodi 00:00:00 00:00:00 Orders Lucius 52802.1.[address] 3.430.2.7 Hospit a .3.431578 l .8 2021-09-21 2021-09-21 Outpatient HOSEA DELEON [facility] 153 [id number] [place] 00:00:00 00:00:[address] 2021-09-18 2021-09-18 Office Bhargavi 1.2.840.1 [id number] 8281 Methodi 13:45:00 16:22:47 Visit [place] 09537.1.[address] 3.430.2.7 Hospit a .3.496859 l .8 2021-09-18 2021-09-18 Travel 1.2.840.1 1.2.711.924 9106 [id number] Methodi 00:00:00 00:00:[address] 3.430.2.7 0.2.7.3.698 Ho spita .3.967934 084.8 l .8 2021-09-18 2021-09-18 Outpatient BHARGAVI [facility] [id number] [place] 00:00:00 00:00:00 ROQUE [address] 2021-07-03 2021-07-03 Outpatient EDD [facility] [id number] 421 [place] 00:00:00 00:00:00 SP [address] 2021-04-26 2021-04-26 Outpatient [facility] [id number] [address] [place] [address] 07:28:23 23:59:00 Ilan 2021-04-16 2021-04-16 Office PHONG Lim 1.2.840.114 [id number] [employer] [facility] [employer] [facility] [employer] [facility] 09:55:21 10:48:40 Visit Polina Baptiste AMBULATOR 350.1.13.21 [place] Y 0.2.7.2.686 [id number] [facility] 830 e 2021-04-04 2021-04-04 Outpatient [place] [id number] [place] 00:00:00 00:00:00 SP 780 Method i 2021-03-08 2021-03-08 Outpatient [place] [id number] 331 [place] 00:00:00 00:00:00 SP 152 Method i 2021-02-22 2021-02-22 Outpatient [facility] [id number] [facility] 00:00:00 00:00:00 2021-02-06 2021-02-06 Outpatient [place], [facility] [id number] [place] 00:00:00 00:00:00 ROQUE 037 Method i 2021-02-06 2021-02-06 Outpatient [place] [id number] [place] 00:00:00 00:00:00 SP 270 Method i 2021-01-31 2021-01-31 Outpatient [facility] [id number] 269 [place] 00:00:00 00:00:00 SP 544 Method i 2021-01-31 2021-01-31 Outpatient [place] [id number] 266 [place] 00:00:00 00:00:00 SP 001 Method i 2021-01-18 2021-01-18 Outpatient [place] [id number] 704 [place] 00:00:00 00:00:00 SP 899 Method i 2021-01-10 2021-01-10 Outpatient [facility] 904 [id number] 269 [place] 00:00:00 00:00:00 SP 692 Method i 2020-12-28 2020-12-28 Outpatient RAMAlmita HOSEA [facility] [id number] [place] 00:00:00 00:00:00 004 Method i 2020-12-28 2020-12-28 Outpatient [place] [id number] [place] 00:00:00 00:00:00 SP 011 Method i 2020-12-19 2020-12-19 Outpatient EL [facility] [id number] [facility] 00:00:00 00:00:00 2020-12-18 2020-12-18 Office Renee [facility] 1.2.840.114 [id number] [employer] [facility] [employer] [facility] [employer] [facility] 08:49:46 14:46:06 Visit , Anette AMBULATOR 350.1.13.21 College Y 0.2.7.2.686 of [id number] [facility] geno 300 e 2020-12-18 2020-12-18 Outpatient EDD [facility] [id number] [place] 00:00:00 00:00:00 SP 763 Method i 2020-12-15 2020-12-15 Outpatient EL [facility] [id number] [facility] 00:00:00 00:00:00 2020-12-15 2020-12-15 Outpatient SLE [facility] [id number] [facility] 00:00:00 00:00:00 2020-11-13 2020-11-13 Outpatient CARINA [facility] [id number] [facility] 00:00:00 00:00:00 POLINA 2020-11-13 2020-11-13 Outpatient STEPHENIE LIM [facility] [id number] [facility] 00:00:00 00:00:00 POLINA 2020-11-09 2020-11-09 Office Carina [facility] 1.2.840.114 [id number] [facility] [employer] [facility] 10:07:36 16:15:46 Visit Polina Baptiste AMBULATOR 350.1.13.21 College Y 0.2.7.2.686 of [id number] [facility] geno 830 e 2020-10-31 2020-11-03 Inpatient BRET [facility] 064 [id number] 17 [place] 00:00:00 00:00:00 WARREN 654 Method i 2020-10-18 2020-10-18 Outpatient BHARGAVI [facility] 010 [id number] 564 [place] 00:00:00 00:00:00 ROQUE 806 Method i 2020-10-13 2020-10-13 Outpatient BHARGAVI [facility] [id number] 559 [place] 00:00:00 00:00:00 ROQUE 333 Method i 2020-10-13 2020-10-13 Outpatient BHARGAVI [facility] [id number] [address] [place] [address] 00:00:00 00:00:00 ROQUE 716 Method i 2020-10-06 2020-10-06 Laboratory Lab, [facility] 1.2.840.114 [id number] 14:30:14 14:50:14 Only Fam Pob I Health 350.1.13.10 [place] 4.2.7.2.686 Professio [id number] [place] [address] [address] One 2020-10-06 2020-10-06 Laboratory Lab, [facility] Fam Pob I [facility] 1.2. 840.114 [id number] Univers 14:30:14 14:50:14 Only Laith [facility] 350.1.13.10 ity of [place] 4.2.7.2.686 Lino as Professio [phone] Ia dical [address] Office Building [facility] 2020-10-06 2020-10-06 Outpatient R LAITH [facility] [id number] [facility] 14:40:00 14:40:00 LISA ity of [facility] 2020-10-06 2020-10-06 Letter Doctor SAL 1.2.840.114 [id number] Univers 00:00:00 00:00:00 (Out) Unassigned, NISHANT 350.1.13.[address] [facility] 4.2.7.2.686 Lino as [phone] [address] 2020-10-06 2020-10-06 Letter Doctor SAL 1.2.840.114 [id number] Univers 00:00:00 00:00:00 (Out) Unassigned, NISHANT 350.1.13.[address] [facility] 4.2.7.2.686 Lino as [phone] [address] 2020-10-06 2020-10-06 Letter Doctor DORON Vasquez.2.840.114 [id number] 00:00:00 00:00:00 (Out) Unassigned, NISHANT 350.1.13.10 [facility] 4.2.7.2.686 [id number] [facility] 2020-10-062020-10-06 Letter Doctor DORON 1.2.840.114 [id number] 00:00:00 00:00:00 (Out) Unassigned, NISHANT 350.1.13.10 [facility] 4.2.7.2.686 [id number] 044 2020-10-05 2020-10-05 Outpatient [facility] [id number] [facility] 00:00:00 00:00:00 2020-10-05 2020-10-05 Outpatient ELVA KHOURY [facility] [id number] [place] 00:00:00 00:00:[address] 2020-09-27 2020-09-27 Office LIZETH LimCristian 1.2.840.114 [id number] [facility] 09:48:17 11:45:41 Visit Polina Baptiste AMBULATOR 350.1.13.21 College Y 0.2.7.2.686 of [id number] Medi geno 830 e 2020-09-25 2020-09-25 Office Renee [facility] 1.2.840.114 [id number] [facility] 08:52:56 11:06:52 Visit Anette AMBULATOR 350.1.13.21 College Y 0.2.7.2.686 of [id number] Medi geno 300 e 2020-09-23 2020-09-23 Outpatient GUSTAVO [facility] [id number] [place] 00:00:00 00:00:00 TANNER 743 Ia thodi 2020-09-13 2020-09-13 Outpatient CARINA [facility] [id number] SLE 00:00:00 00:00:00 POLINA 2020-09-13 2020-09-13 Outpatient STEPHENIE LIM [facility] [id number] [facility] 00:00:00 00:00:00 POLINA 2020-09-08 2020-09-08 Outpatient STEPHENIE [facility] [id number] [facility] 00:00:00 00:00:00 2020-09-02 2020-09-02 Outpatient ASKED, NO [facility] [id number] [place] 00:00:00 00:00:[address] 2020-08-08 2020-08-08 Outpatient [facility] [id number] [place] 00:00:00 00:00:00 ROQUE [address] 2020-07-13 2020-07-14 Outpatient [facility], [facility] [id number] [place] 00:00:00 00:00:00 ROQUE [address] 2020-07-10 2020-07-10 Outpatient [facility], [facility] [id number] [place] 00:00:00 00:00:00 ROQUE [address] 2020-07-04 2020-07-04 Outpatient [facility], [facility] [id number] [place] 00:00:00 00:00:00 ROQUE [address] 2020-06-27 2020-06-27 Outpatient [facility], [facility] [id number] 112 [place] 00:00:00 00:00:00 ROQUE [address] 2020-06-26 2020-06-26 Outpatient [facility], [facility] [id number] 112 [place] 00:00:00 00:00:00 ROQUE [address] 2020-06-20 2020-06-20 Outpatient [facility], [facility] [id number] [place] 00:00:00 00:00:00 ROQUE [address] 2020-04-25 2020-04-25 Outpatient [facility], [facility] [id number] [place] 00:00:00 00:00:00 ROQUE [address] 2020-03-07 2020-03-07 Outpatient [place] [id number] [place] 00:00:00 00:00:00 SP [address] 2019-10-12 2019-10-12 Office PHONG Valdez 1.2.840.114 [id number] [facility] 09:55:07 11:22:50 Visit Tanner AMBULATOR 350.1.13.21 College P Y 0.2.7.2.686 of [id number] Medi geno 300 e 2019-09-21 2019-09-21 Office PHONG Lim 1.2.840.114 [id number] [facility] 13:24:19 14:41:19 Visit Polina Oliva AMBULATOR 350.1.13.21 College Y 0.2.7.2.686 of [id number] Medi geno 830 e 2019-08-23 2019-08-23 Office Renee [facility] 1.2.840.114 [id number] [facility] 11:42:57 14:11:07 Visit , Anette AMBULATOR 350.1.13.21 College Y 0.2.7.2.686 of [id number] [facility] geno 300 e 2019-06-08 2019-06-08 Outpatient [facility], [facility] [id number] 378 [place] 00:00:00 00:00:00 ROQUE [address] 2019-03-04 2019-03-04 Office Carina [facility] 1.2.840.114 [id number] [facility] 13:15:29 14:58:57 Visit Polina Baptiste AMBULATOR 350.1.13.21 College Y 0.2.7.2.686 of [id number] [facility] 830 e Results Test Description Test Time Test Comments Results Result [facility] e Comments [place], [place], 2022-03-12 Reason for NON-SPECIFIC, UP 08:50:00 exam:->[facility] : 1945 Sex: M *An imaging unit was utilized for this procedure. No radiologist interpretation was requested. Refer to the EMR for findings. Refer to PACS for any patient radiation dose information. Activated clotting time 2021-12-06 11:59:00 Test Item Value Reference Range Interpretation Comme nts Activated clotting time (test See_Comment Card Grader Name: Martin Weaver ID: code = [id number]) [id number] [Autom ated message] The system which ge nerated this result transmitted ref erence range: 96 - 152 sec. The refere nce range was not used to interpret th is result as normal/abnormal . [facility] Pre/Post [id number] 23:14:51 Test Item Value Reference Range Interpretation Comments Ventricular rate (test code = 253) QRSD interval (test code = 260) QT interval (test code = 264) QTC interval (test code = 265) QRS axis 1 (test code = 268) T wave axis (test code = 270) EKG impression (test Poor data code = 273) quality-Atrial fibrillation-Left axis deviation-Incomplete right bundle branch block-Minimal voltage criteria for LVH, may be normal variant ( [place]izwan product )-Septal infarct , age undetermined-Abnormal ECG-In automated comparison with ECG of 04-OCT-2021 05:46,-Atrial fibrillation has replaced Sinus rhythm-Septal infarct is now present-T wave inversion no longer evident in Anterior leads-QT has lengthened-Electronical ly Signed By Pacheco Leonard MD ([id number]) on 12/05/2021 6:14:50 PM [facility] 12 [id number] 20:16:23 Test Item Value Reference Range Interpretation Comments Ventricular rate (test code = 253) Atrial rate (test code = 255) MT interval (test code = 266) QRSD interval (test code = 260) QT interval (test code = 264) QTC interval (test code = 265) QRS axis 1 (test code = 268) T wave axis (test code = 270) EKG impression (test Sinus rhythm with 1st code = 273) degree AV block-Left anterior fascicular block-T wave abnormality, consider anterior ischemia-Prolonged QT-Abnormal [facility] [id number] 01:47:05 Test Item Value Reference Interpretation Comments Range Interpretation (test Negative results do not code = 5471558) preclude COVID-19 infection and should not be used asthe sole basis for treatment or other patient management decisions. Negativeresults must be combined with clinical observations, patient history, andepidemiological information. COVID-19 qualitative Not-Detected Not-Detected RT-PCR result (test code = 01197-9) COVID-19 qualitative See link below for PDF Case Number: RT-PCR (test code = Lab Report [id number]) Caro HurtadoARS-CoV-2 (COVID-19) RNA [Presence] in Respiratory specimen by NETTE with probe [id number] 20:47:05 Test Item Value Reference Range Interpretation Comments SARS-CoV-2 (COVID-19) RNA Not detected [Presence] in Respiratory specimen by NETTE with probe detection (test code = 74281-6) Whether patient is employed in a Unknown healthcare setting (test code = 91846-8) Whether the patient has symptoms Unknown related to condition of interest (test code = 59881-1) Whether the patient was Unknown hospitalized for condition of interest (test code = 66263-1) Whether the patient was admitted Unknown to intensive care unit (ICU) for condition of interest (test code = 78710-0) Whether patient resides in a Unknown congregate care setting (test code = 34450-0) status (test code = Unknown 74610-7) Date and time of symptom onset Unknown (test code = 67889-3) JUAN ZAMUDIO [id number] (COVID-19) RNA [Presence] in Respiratory specimen by NETTE with probe [id number] 18:28:56 Test Item Value Reference Range Interpretation Comments SARS-CoV-2 (COVID-19) RNA Not detected [Presence] in Respiratory specimen by NETTE with probe detection (test code = 60516-8) Whether patient is employed in a Unknown healthcare setting (test code = 66397-9) Whether the patient has symptoms Unknown related to condition of interest (test code = 21126-0) Whether the patient was Unknown hospitalized for condition of interest (test code = 64872-2) Whether the patient was admitted Unknown to intensive care unit (ICU) for condition of interest (test code = 95036-2) Whether patient resides in a Unknown congregate care setting (test code = 36948-2) status (test code = Unknown 48189-4) Date and time of symptom onset Unknown (test code = 04743-8) JUAN ZAMUDIO [id number]-FyG-0 (COVID-19) RNA [Presence] in Respiratory specimen by NETTE with probe [id number] 16:54:02 Test Item Value Reference Range Interpretation Comments SARS coronavirus RNA [Presence] Not detected in Isolate by NETTE with probe detection (test code = 63592-7) Whether patient is employed in a Unknown healthcare setting (test code = 90848-7) Whether the patient has symptoms Unknown related to condition of interest (test code = 31792-6) Whether the patient was Unknown hospitalized for condition of interest (test code = 77900-1) Whether the patient was admitted Unknown to intensive care unit (ICU) for condition of interest (test code = 25200-6) Whether patient resides in a Unknown congregate care setting (test code = 71212-4) status (test code = Unknown 11507-6) Date and time of symptom onset Unknown (test code = 48249-0) JUAN MAYOSARS-CoV-2 (COVID-19) RNA [Presence] in Respiratory specimen by NETTE with probe [id number] 16:54:02 Test Item Value Reference Range Interpretation Comments SARS-CoV-2 (COVID-19) RNA Not detected [Presence] in Respiratory specimen by NETTE with probe detection (test code = 18354-6) Whether patient is employed in a Unknown healthcare setting (test code = 19595-6) Whether the patient has symptoms Unknown related to condition of interest (test code = 58030-0) Whether the patient was Unknown hospitalized for condition of interest (test code = 23788-3) Whether the patient was admitted Unknown to intensive care unit (ICU) for condition of interest (test code = 75070-4) Whether patient resides in a Unknown congregate care setting (test code = 64098-2) status (test code = Unknown 58462-0) Date and time of symptom onset Unknown (test code = 57994-2) JUAN MAYOSARS-CoV-2 (COVID-19) RNA [Presence] in Respiratory specimen by NETTE with probe [id number] 21:45:50 Test Item Value Reference Range Interpretation Comments SARS-CoV-2 (COVID-19) RNA Not detected Not-Detected [Presence] in Respiratory specimen by NETTE with probe detection (test code = 23300-5) Whether patient is employed in a healthcare setting (test code = 13266-7) Whether the patient has symptoms related to condition of interest (test code = 28978-0) Patient was hospitalized because of this condition (test code = 29197-7) Whether the patient was admitted to intensive care unit (ICU) for condition of interest (test code = 78145-6) Whether patient resides in a congregate care setting (test code = 84938-5) JUAN COBB, FLUORO, NON-SPECIFIC, UP TO 1 [id number] 09:10:00 Reason for exam:->RADIOFREQUENCY ABLATION OF [facility]GL[facility] : 1945 Sex: MFluoroscopic unit utilized for a procedure performed in the OR. No interpretation was requested. Refer to the operative report for findings. Refer to PACS for patient radiation dose information.SARS-COV2/RT-PCR ([facility])2020-12-16 07:16:00 Test Item Value Reference Range Interpretation Comments SARS-COV2/RT-PCR (test Negative Not Detected, Negative, code = 5672322) See external report for linked test SARS-COV-[address] [facility] (test code = 4831328) Negative result for this test determines that SARS-CoV-2 RNA was not present in the specimen above the Limit of Detection (LOD). However, Negative results do not preclude SARS-CoV-2 infection and should not be used as the sole basis for treatment or patient management decisions. Negative results must be combined with clinical observations, patient history, and [...] justifying the authorization of the emergency use ofin vitro diagnostic tests for detection and/or diagnosis of COVID-19 is terminated under Section 564(b)(2) of the Act or the EUA is revoked under Section 564(g) of the Act.Testing was performed using the [employer] SARS-CoV-2 assay.Fact Sheet for Healthcare Providers:https://www.bCommunities.staples/stephanie/RT_SAR F-OtA-7_XZD_Wojy_Sjriq_12-332936.pdfFact Sheet for Healthcare Patients:https://www.bCommunities.staples/s al/XF_EOYZ-WsT-6_Juwlvsm_Kjvg_Fbyiq_GJ_40-950228Y2.pdfPerforming Laboratory:[facility] [place], [place] [address] [address] URINALYSIS [id number] 15:50:00 Test Item Value Reference Range Interpretation Comments RBC UA (BEAKER) (test code = 519) 12 /HPF WBC UA (BEAKER) (test code = 520) 5 /HPF MUCUS (BEAKER) (test code = 1574) Many SQUAMOUS EPITHELIAL (BEAKER) (test 1 /HPF code = 516) HYALINE CASTS (BEAKER) (test code = 6 /LPF 514) CALCIUM OXALATE CRYSTALS (BEAKER) Few (test code = 518) Card Grader ID - techURINALYSIS WITH MICROSCOPIC IF [id number] 15:30:00 Test Item Value Reference Range Interpretation [...] = 463) SOURCE(BEAKER) (test code = 2795) Card Grader ID - [auto]BASIC METABOLIC [id number] 15:22:00 Test Item Value Reference Range Interpretation [...] S NOT APPLICABLE FOR DIALYSIS PATIEN TS. Card Grader ID - [id number] 15:07:00 Test Item Value Reference Range Interpretation Comments PARTIAL THROMBOPLASTIN TIME 32.0 seconds 22.5-36.0 (BEAKER) (test code = 760) PROTHROMBIN TIME/[id number] 15:06:00 Test Item Value Reference Range Interpretation Comments PROTIME (BEAKER) 13.9 seconds 11.9-14.2 (test code = 759) INR (BEAKER) (test 1.11 See_Comment [Automat ed message] code = 370) The system [employer] generated this result transmitted ref erence range: <=5.90. The reference range was not used to int erpret this result as normal/abnormal . RECOMMENDED COUMADIN/WARFARIN INR THERAPY RANGESSTANDARD DOSE: 2.0 - 3.0 Includes: PROPHYLAXIS for venous thrombosis, systemic embolization; TREATMENT for venous thrombosis and/or pulmonary embolus.HIGH RISK: Target INR is 2.5-3.5 for patients with mechanical heart valves.CBC W/PLT COUNT & AUTO [id number] 15:03:00 Test Item Value Reference Range Interpretation [...] (test code = 2801) RAD, CHEST, 2 [id number] 14:53:00Reason for exam:->[facility] 1945 Sex: MFINAL REPORT HISTORY: Preoperative examination COMPARISON: Chest radiographs of 09/08/2020 and 11/12/2015 FINDINGS: Mild scarring in the right upper lobe. No pleural effusions or pneumothorax. The heart shadow is normal in size. The thoracic aorta is tortuous, unchanged. Degenerative changes are present in the spine. IMPRESSION: No evidence of acute cardiopulmonary disease. Signed: Yumiko Sosa MDReport Verified Date/Time: 12/15/2020 14:53:22 Reading Location: [facility] Radiology Reading Room VF-YmU-4 (COVID-19) RNA [Presence] in Respiratory specimen by NETTE with probe [id number] 15:18:59 Test Item Value Reference Range Interpretation Comments SARS-CoV-2 (COVID-19) RNA Not detected Not-Detected [Presence] in Respiratory specimen by NETTE with probe detection (test code = 47739-2) JUAN MELTON-COV2/RT-PCR ([facility])2020-09-08 17:47:00 Test Item Value Reference Range Interpretation Comments SARS-COV2/RT-PCR (test Negative Not Detected, Negative, code = 1630935) See external report for linked test SARS-COV-[address] [facility] (test code = 0082858) Negative result for this test determines that SARS-CoV-2 RNA was not present in the specimen above the Limit of Detection (LOD). However, Negative results do not preclude SARS-CoV-2 infection and should not be used as the sole basis for treatment or patient management decisions. Negative results must be combined with clinical observations, patient history, and [...] justifying the authorization of the emergency use ofin vitro diagnostic tests for detection and/or diagnosis of COVID-19 is terminated under Section 564(b)(2) of the Act or the EUA is revoked under Section 564(g) of the Act.Fact Sheet for Healthcare Prov iders:https://www.haystagg/sites/default/files/product/documents/Fact_Sheet_HC _Cudtxrmak_Tfor_GGVT-DrR-5.pdfFact Sheet for Healthcare Patients:https://www.haystagg/sites/default/files/product/docume nts/Ipjn_Rtxua_Oagrdptn_Vbok_SCLD-GoR-8.pdfPerforming Laboratory:[facility], [place] [address]XQY, CHEST, 2 VIEWS 2020-09-08 12:56:00Reason for exam:->Trigeminal neuralgia [facility] : 1945 Sex: MFINAL REPORT TECHNIQUE: Frontal and lateral views of the chest. INDICATION: Trigeminal neuralgia. COMPARISON: Chest radiographs from 03/13/2016. FINDINGS: LINES/TUBES: None. LUNGS: A questionable nodular opacity in the right upper lung measures 0.9 cm. No consolidation or pulmonary edema. PLEURA: No pleural effusion or pneumothorax. HEART AND MEDIASTINUM: The cardiac silhouette is normal in size. Tortuous thoracic aorta. Multiple coronary arterial stents over the left heart. SOFT TISSUES AND BONES: Unremarkable. IMPRESSION: No acute intrathoracic abnormality. A questionable nodularnodular opacity in the right upper lung measures 0.9 cm. Further evaluation with a chest CT is recommended. Signed: Dariusz Li Verified Date/Time: 09/08/2020 12:56:25 PROTHROMBIN TIME/[id number] 11:09:00 Test Item Value Reference Range Interpretation Comments PROTIME (BEAKER) 14.1 seconds 11.9-14.2 (test code = 759) INR (BEAKER) (test 1.12 See_Comment [Automat ed message] code = 370) The system [employer] generated this result transmitted ref erence range: <=5.90. The reference range was not used to int erpret this result as normal/abnormal . Effective 12/23/2018: PT Reference Range ChangeNew: 11.9-14.2 Previous: 11.7- 14.7RECOMMENDED COUMADIN/WARFARIN INR THERAPY RANGESSTANDARD DOSE: 2.0-3.0 Includes: PROPHYLAXIS for venous thrombosis, systemic embolization; TREATMENT for venous thrombosis and/or pulmonary embolus.HIGH RISK: Target INR is 2.5-3.5 for patients wiht mechanical heart valves.[id number] 11:09:00 Test Item Value Reference Range Interpretation Comments PARTIAL THROMBOPLASTIN TIME 25.8 seconds 22.5-36.0 (BEAKER) (test code = 760) BASIC METABOLIC [id number] 11:07:00 Test Item Value Reference Range Interpretation [...] GFR I S NOT APPLICABLE FOR DIALYSIS PATIJOAQUIN TS. Card Grader ID - PIAYA LCBC W/PLT COUNT & AUTO [id number] 10:57:00 Test Item Value Reference Range Interpretation [...] in Respiratory specimen by NETTE with probe [id number] 20:54:07 Test Item Value Reference Range Interpretation Comments SARS-CoV-2 (COVID-19) RNA Not detected Not-Detected [Presence] in Respiratory specimen by NETTE with probe detection (test code = 87761-5) JUAN COBB, DEEPTI, NON-SPECIFIC, UP TO 1 [id number] 09:54:00 Reason for exam:->RADIOFREQUENCY ABLATION OF TRIGEMINAL NERVEFINAL REPORT A fluoroscopic unit was utilized for a procedure performed in theoperating room. No interpretation was requested. Please refer to the operative report regarding findings. Please refer to PACS for patient radiation dose information. Signed: Mini Longo Verified Date/Time: 08/31/2019 09:54:29 Reading Location: [facility] Radiology Reading Room C METABOLIC [id number] 07:46:00 Test Item Value Reference Range Interpretation [...] GFR I S NOT APPLICABLE FOR DIALYSIS PATIJOAQUIN TS. Card Grader ID - ZORAIDA [id number] 07:13:00 Test Item Value Reference Range Interpretation Comments PARTIAL THROMBOPLASTIN TIME 33.7 seconds 22.5-36.0 (BEAKER) (test code = 760) PROTHROMBIN TIME/[id number] 07:12:00 Test Item Value Reference Range Interpretation Comments PROTIME (BEAKER) (test code = 15.4 seconds 11.9-14.2 H 759) INR (BEAKER) (test code = 370) 1.3 <=5.9 Effective 12/23/2018: PT Reference Range ChangeNew: 11.9-14.2 Previous: 11.7- 14.7RECOMMENDED COUMADIN/WARFARIN INR THERAPY RANGESSTANDARD DOSE: 2.0-3.0 Includes: PROPHYLAXIS for venous thrombosis, systemic embolization; TREATMENT for venous thrombosis and/or pulmonary embolus.HIGH RISK: Target INR is 2.5-3.5 for patients wiht mechanical heart valves.CBC W/PLT COUNT & AUTO [id number] 07:06:00 Test Item Value Reference Range Interpretation [...] MR, SPINE, CERVICAL, WITHOUT / WITH IV [id number] 11:05:00FINAL REPORT Exam: Cervical spine MRI without with IV contrastHistory: 73-year-old male with multiple sclerosisComparison studies: Cervical spine MRI 03/26/2018. Technique:Precontrast sagittal T1, T2 and inversion recovery, axial T1 and T2 cervical and thoracic. Postcontrast axial and sagittal Q3Hxluogmaeol contrast: 9 cc of Gadavist. Findings: Several pulse sequences are somewhat limited by artifacts related to patient motion. Spinal Cord: Normal in size and signal from the foramen magnum through T1. T2 lesion load: No gross new lesions. Multiple scattered demyelinating lesions. Home Child Care Provider lesions are grossly unchanged and described as follows: C1-C2: Left left paramedian central-dorsal cord.C2: Left lateral cordC2-C3: Dorsal cord.Inferior C3: Left lateral cord. C3- C4: Ill-defined lesion in theC3-C4: Ill-defined lesion in the right satya- /posterior cord.C4: Left posteriorcord. Previously described lesion in the right posterior cord may be present but obscured by artifacts.C5: Ventral, left lateral right posterior cord.C6: Ventral cord.Previously described possible lesion in the cord at C7 if present may be observed artifacts on the current exam. T1 hypointense foci: None.Enhancement: None. Additional comments:Alignment: Minimal anterolisthesis of C5 on C6 is unchanged .Cervicomedullary junction: No abnormalities. The foramen magnum is patent. No Chiari one malformation.Soft tissues tissues: No signal abnormalities.Vertebral bodies: No compression fractures from C2 through T3. Incidental findings: Mild multilevel disc degeneration with multilevel facet arthrosis andmoderate foraminal stenosis on the left at C6-C7 due to a disc ossify complex and uncovertebral arthrosis, unchanged. IMPRESSION: 1.No new or enhancing lesions.2.Nonenhancing demyelinating lesions are unchanged from the prior cervical spine MRI of 03/26/2018. Signed: Yumiko Abad MDReport Verified Moisés e/Time: 02/16/2019 11:05:03 Reading Location: [facility] Reading Room [address] [place] [address] MR, BRAIN, WITHOUT / WITH IV [id number] 10:50:00FINAL REPORT Exam: Brain MRI without with [...] septal interface, jim. New or more conspicuous lesionalong the left superior cerebellar peduncle (axial T2 [...] generalized brain volume loss. Other: No extra axial fluid collection, hemorrhage, hydrocephalus or acute ischemia. Incidental [...] Abad Verified Date/Time: 02/16/2019 10:50:04 Reading Location: [facility] Reading Room [address] [place] [address] [id number] 10:10:00 Test Item Value Reference Range Interpretation Comments POC-CREATININE 1.2 mg/dL 0.6-1.3 TESTED AT [facility] 7200 ([facility]) (test VIKI D G A code = 1859) [facility] 7703 0 POC-EGFR 60 mL/min/1.73M2 ([facility]) (test code = 1860) [facility] IN OR/30 MINUTE [id number] 13:40:00Reason for exam:- >Trigeminal NeuralgiaFINAL REPORT Fluoroscopy 5 views intraoperative 07/17/2018 1:37 PM CLINICAL HISTORY: Instrument localization COMPARISON: None available IMPRESSION: Please correlate imaging report findings with the procedure note prepared by Dr. Marley, as an intra-procedure imaging consultation was not requested. Reported fluoroscopy time: 49.4 seconds. Signed: Tori Sarkar Verified Date/Time: 07/17/2018 13:40:25 Reading Location: [facility] Reading Room
--- NOTE | 2022-08-22 19:04 | RAD REPORT ---
EXAM DESCRIPTION: CT - Head Brain Wo Cont - 08/22/2022 6:46 pm CLINICAL HISTORY: Head injury status post fall COMPARISON: August 13, 2022 MRI TECHNIQUE: Computed axial tomography of the head was obtained. IV contrast was not requested. All CT scans are performed using dose optimization technique as appropriate and may include automated exposure control or mA/KV adjustment according to patient size. FINDINGS: An intracranial bleed is not seen . The ventricles are normal in caliber. No extra-axial fluid collection is noted. Subacute left basal ganglia infarct Mild to moderate low-density areas within periventricular, deep and subcortical white matter likely r epresent ischemic changes secondary to small vessel disease. Fluid within the sinuses/ mastoids is not seen. IMPRESSION: No acute intracranial abnormality is seen. If patient's symptoms persist MRI of the bra in would be recommended.
[2022-08-22] MEDS ORDERED: LIDOCAINE 1% MPF 5 ML VIAL ONE (19:16)
[2022-08-22] MEDS ORDERED: TDAP (DIPHTH,PERTUSS(ACELL),TET VAC) 0.5 ML VIAL IMVAC ONE (19:17)
--- NOTE | 2022-08-22 19:45 | EDPHYS ---
Physician Documentation [facility] Name: Terrance Monroy Age: 76 yrs Sex: Male : 1945 Arrival Date: 08/22/2022 Time: 18:07 Bed 17 Private MD: Jyothi Mccollum C ED Physician Eddie Peña HPI: 08/22 19:11 This 76 yrs old Male presents to ER via Wheelchair with complaints of Fall Injury, pm1 Laceration To Head. 19:11 Details of fall: The patient fell from an upright position, while walking, and struck a pm1 concrete surface. Onset: The symptoms/episode began/occurred just prior to arrival. Associated injuries: The patient sustained injury to the head, laceration. Severity of symptoms: in the emergency department the symptoms have improved. The patient has experienced similar episodes in the past, a few times. The patient has not recently seen a physician. Patient was walking to dinner and he stepped off the curb or in did not expect an uneven surface on the street. Patient fell forward and hit his head resulting in laceration to left eyebrow. Negative for LOC, negative for neck pain. Historical: - Allergies: 18:18 Plavix; aa5 - PMHx: 18:18 Atrial Fib; atrial flutter; back spasms; back surgery; Cerebrovascular accident; High aa5 Cholesterol; Hypertension; Hypothyroidism; MS; TMJ; Trigeminal nueralgia; ulcerative colitis; CVA; - Immunization history:: Adult Immunizations unknown. - Social history:: Smoking status: Patient denies any tobacco usage or history of. ROS: 19:11 Constitutional: Negative for fever, chills, and weight loss, Neck: Negative for injury, pm1 pain, and swelling, Cardiovascular: Negative for chest pain, palpitations, and edema, Respiratory: Negative for shortness of breath, cough, wheezing, and pleuritic chest pain, Back: Negative for injury and pain, MS/Extremity: Negative for injury and deformity. 19:11 Neuro: Negative for headache, weakness, numbness, tingling, and seizure. 19:11 Skin: Positive for laceration(s), of the outer aspect of left eyebrow. 19:11 All other systems are negative. Exam: 19:11 Constitutional: This is a well developed, well nourished patient who is awake, alert, pm1 and in no acute distress. Head/Face: Normocephalic, atraumatic. 19:11 MS/ Extremity: Pulses equal, no cyanosis. Neurovascular intact. Full, normal range of motion. 19:11 Eyes: Pupils: no acute changes, Extraocular movements: no acute changes, Conjunctiva: no acute changes, no injection. 19:11 ENT: Exam is negative for acute changes, Mouth: no acute changes, Lips: normal, moist, Oral mucosa: normal, pink and intact, moist. 19:11 Neck: Exam negative for acute changes, C-spine: vertebral tenderness, is not appreciated, ROM/movement: is normal. 19:11 Cardiovascular: Exam negative for acute changes. 19:11 Respiratory: Exam negative for acute changes, respiratory distress, shortness of breath. 19:11 Skin: Appearance: normal except for affected area, injury, laceration(s), the wound is approximately 1 cm(s), of the outer aspect of left eyebrow, that can be described as clean, no foreign body, linear, without bleeding. 19:11 Neuro: Exam negative for acute changes, Orientation: is normal, Mentation: is normal, Motor: is normal, moves all fours. Vital Signs: 18:19 BP 189 / 101; Pulse 53; Resp 18 S; Temp 97.1(TE); Pulse Ox 100% on R/A; Weight 68.04 kg aa5 (R); Height 6 ft. 4 in. (193.04 cm) (R); 19:30 BP 180 / 94; Pulse 59; Resp 17 S; Pulse Ox 100% on R/A; eh3 18:19 Body Mass Index 18.26 (68.04 kg, 193.04 cm) aa5 Laceration: 19:41 Wound Repair of 1cm ( 0.4in ) subcutaneous laceration to outer aspect of left eyebrow. pm1 Linear shaped.. Distal neuro/vascular/tendon intact. Anesthesia: Local anesthetic administered with 1 mls of 1% lidocaine. Wound prep: Extensive cleansing with hibiclenz by me, Wound irrigation with saline by me, Wound explored extensively, Copious irrigation. Skin closed with 3 5-0 Prolene using simple sutures and sterile technique. Dressed with 4x4's. Patient tolerated well. MDM: 18:28 Patient medically screened. pm1 19:42 Data reviewed: vital signs. pm1 19:42 Differential diagnosis: abrasion, closed head injury, laceration, intracranial pm1 hemorrhage, skull fracture. 19:42 Counseling: I had a detailed discussion with the patient and/or guardian regarding: the pm1 historical points, exam findings, and any diagnostic results supporting the discharge/admit diagnosis, radiology results, the need for outpatient follow up, to return to the emergency department if symptoms worsen or persist or if there are any questions or concerns that arise at home. 08/22 18:22 Order name: CT Head Brain wo Cont; Complete Time: 19:07 aa5 08/22 19:11 Order name: Dressing - Wound; Complete Time: 19: pm1 08/22 19:11 Order name: Gloves, Sterile; Complete Time: : pm1 08/22 19:11 Order name: Prolene, Sutures; Complete Time: 19: pm1 08/22 19:11 Order name: Setup Suture Tray; Complete Time: : pm1 Administered Medications: 19:18 Not Given (Physician Discretion): Tetanus-Diphtheria Toxoid Adult 0.5 ml IM once; pm1 Provide Vaccine Information Statement (VIS). 19:27 Drug: Lidocaine (1 %) 5 ml Volume: 5 ml; Route: Infiltration; Site: affected [facility]; [facility] 19:58 Follow up: Response: No adverse reaction 3 19:27 Not Given (vaccination up to datee): Tetanus Toxoid,Adsorbed 0.5 ml IM once; Provide 3 Vaccine Information Statement (VIS). Disposition Summary: 08/22/22 19:44 Discharge Ordered Location: Home pm1 Problem: new pm1 Symptoms: have improved pm1 Condition: Stable pm1 Diagnosis - Laceration without foreign body of other part of head - left eyebrow pm1 - Fall on same level, unspecified pm1 Followup: pm1 - With: Emergency Department - When: As needed - Reason: Worsening of condition Followup: pm1 - With: Private Physician - When: 1 week - Reason: Recheck today's complaints, Continuance of care, Staple/Suture removal, Re-evaluation by your physician Discharge Instructions: - Discharge Summary Sheet pm1 - Head Injury, Adult pm1 - Fall Prevention in the Home, Adult pm1 - Facial Laceration pm1 Forms: - Medication Reconciliation Form pm1 - Thank You Letter pm1 - Antibiotic Education pm1 - Prescription Opioid Use pm1 Signatures: Dispatcher [employer] EDKimberley Vaz, RN RN aa5 Blayne Ovalle, [employer] pm1 Elizabeth Olvera RN RN eh3
--- NOTE | 2022-08-22 19:45 | ER ---
Nurse's Notes [facility] Name: Terrance Monroy Age: 76 yrs Sex: Male : 1945 Arrival Date: 08/22/2022 Time: 18:07 Bed 17 Private MD: Jyothi Mccollum C Diagnosis: Laceration without foreign body of other part of head-left eyebrow;Fall on same level, unspecified Presentation: 08/22 18:19 Chief complaint: Patient states: "I was clumsy and I fell onto asphalt". Denies LOC, aa5 reports he takes Pradaxa. Laceration noted to left eyebrow, bleeding controlled. Coronavirus screen: At this time, the client does not indicate any symptoms associated with coronavirus-19. Ebola Screen: Patient denies travel to an Ebola-affected area in the 21 days before illness onset. Initial Sepsis Screen: Does the patient meet any 2 criteria? No. Patient's initial sepsis screen is negative. Does the patient have a suspected source of infection? No. Patient's initial sepsis screen is negative. Risk Assessment: Do you want to hurt yourself or someone else? Patient reports no desire to harm self or others. Onset of symptoms was August 22, 2022. 18:19 Method Of Arrival: Wheelchair aa5 18:19 Acuity: RADHA 2 aa5 Historical: - Allergies: 18:18 Plavix; aa5 - PMHx: 18:18 Atrial Fib; atrial flutter; back spasms; back surgery; Cerebrovascular accident; High aa5 Cholesterol; Hypertension; Hypothyroidism; MS; TMJ; Trigeminal nueralgia; ulcerative colitis; CVA; - Immunization history:: Adult Immunizations unknown. - Social history:: Smoking status: Patient denies any tobacco usage or history of. Screenin:27 [facility] ED Fall Risk Assessment (Adult) History of falling in the last 3 months, 3 including since admission Yes- single mechanical fall (1 pt) Confusion or Disorientation No (0 pts) Intoxicated or Sedated No (0 pts) Impaired Gait No (0 pts) Mobility Assist Device Used No (0 pt) Altered Elimination No (0 pt) Score/Fall Risk Level 0 - 2 = Low Risk Oriented to surroundings, Maintained a safe environment, Assessed \\T\\ reinforced patient's understanding of fall precautions, Provided non-skid footwear. Abuse screen: Denies threats or abuse. Denies injuries from another. Nutritional screening: No deficits noted. Tuberculosis screening: No symptoms or risk factors identified. Assessment: 19:27 General: Appears in no apparent distress. comfortable, Behavior is calm, cooperative. eh3 Pain: Denies pain. Neuro: No deficits noted. Vitale Agitation-Sedation Scale (RASS): 0 - Alert and Calm Level of Consciousness is awake, alert, obeys commands, Oriented to person, place, time, situation. Cardiovascular: No deficits noted. Denies chest pain, shortness of breath, Capillary refill < 3 seconds Clubbing of nail beds is absent JVD is absent Patient's skin is warm and dry. Respiratory: No deficits noted. Airway is patent Trachea midline Respiratory effort is even, unlabored, Respiratory pattern is regular, symmetrical. GI: No deficits noted. No signs and/or symptoms were reported involving the gastrointestinal system. Abdomen is flat, non-distended. : No deficits noted. No signs and/or symptoms were reported regarding the genitourinary system. EENT: No deficits noted. No signs and/or symptoms were reported regarding the EENT system. Derm: Wound noted outer aspect of left eyebrow. Musculoskeletal: No deficits noted. No signs and/or symptoms reported regarding the musculoskeletal system. Circulation, motion, and sensation intact. Range of motion: intact in all extremities. 19:58 Reassessment: Patient appears in no apparent distress at this time. No changes from eh3 previously documented assessment. Patient and/or family updated on plan of care and expected duration. Pain level reassessed. Patient is alert, oriented x 3, equal unlabored respirations, skin warm/dry/pink. Patient denies pain at this time. Vital Signs: 18:19 BP 189 / 101; Pulse 53; Resp 18 S; Temp 97.1(TE); Pulse Ox 100% on R/A; Weight 68.04 kg aa5 (R); Height 6 ft. 4 in. (193.04 cm) (R); 19:30 BP 180 / 94; Pulse 59; Resp 17 S; Pulse Ox 100% on R/A; eh3 18:19 Body Mass Index 18.26 (68.04 kg, 193.04 cm) aa5 ED Course: 18:07 Patient arrived in ED. as 18:07 Jyothi Mccollum MD is Private Physician. as 18:08 Blayne Ovalle NP is PHCP. pm1 18:08 Eddie Peña MD is Attending Physician. pm1 18:15 Arm band placed on. aa5 18:21 Triage completed. aa5 18:48 CT Head Brain wo Cont In Process Unspecified. EDMS 18:56 Elizabeth Olvera, RN is Primary Nurse. eh3 19:27 Patient has correct armband on for positive identification. Placed in gown. Bed in low eh3 position. Call light in reach. Side rails up X 1. Client placed on continuous cardiac and pulse oximetry monitoring. NIBP monitoring applied. Door closed. Noise minimized. Warm blanket given. Family accompanied patient. 19:27 Assist provider with laceration repair on outer aspect of left eyebrow that was 2.5 cm. eh3 or less using sutures. Set up tray. Performed by Blayne Ovalle SPARMAKER Patient tolerated well. 19:59 Patient did not have IV access during this emergency room visit. eh3 Administered Medications: 19:18 Not Given (Physician Discretion): Tetanus-Diphtheria Toxoid Adult 0.5 ml IM once; pm1 Provide Vaccine Information Statement (VIS). 19:27 Drug: Lidocaine (1 %) 5 ml Volume: 5 ml; Route: Infiltration; Site: affected area; 3 19:58 Follow up: Response: No adverse reaction eh3 19:27 Not Given (vaccination up to datee): Tetanus Toxoid,Adsorbed 0.5 ml IM once; Provide eh3 Vaccine Information Statement (VIS). Medication: 19:27 VIS not applicable for this client. eh3 Outcome: 19:44 Discharge ordered by . pm1 19:58 Discharged to home ambulatory, with significant other. eh3 19:58 Condition: stable 19:58 Discharge instructions given to patient, Instructed on discharge instructions, follow up and referral plans. Demonstrated understanding of instructions, follow-up care, wound care. 20:00 Patient left the ED. eh3 Signatures: Dispatcher [employer] EDMS Serena Sauceda Audri, RN RN aa5 Blayen Ovalle, CATERINA SPARMAKER pm1 Elizabeth Olvera RN RN eh3 Corrections: (The following items were deleted from the chart) 18:21 18:19 Acuity: RADHA 3 aa5 aa5
[2022-08-22 20:59] VITALS: TEMP 97.1; O2SAT 100
[2022-08-22 21:00] VITALS: BP 180/94
== END 2022-08-22 20:00 | disposition home or self-care (01) ==
LOC: ER 18:06
PROC: 0HQ1XZZ Repair Face Skin, External Approach (ICD-10-PCS; principal; 2022-08-22)
DX: S01.81XA Laceration without foreign body of other part of head, initial encounter (principal); W18.30XA Fall on same level, unspecified, initial encounter; I10 Essential (primary) hypertension; Z86.73 Personal history of transient ischemic attack (TIA), and cerebral infarction without residual deficits; Z88.8 Allergy status to other drugs, medicaments and biological substances; Z23 Encounter for immunization
CPT/HCPCS: 70450; 99283; 12011; J2001

== ENCOUNTER 2022-08-30 07:31 | Emergency (ER) | payer OTHER ==
--- OUTSIDE RECORDS SUMMARY | 2022-08-30 07:39 | XMS REPORT | Continuity of Care Document ---
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 needed . Center MEQ tablet levothyroxi 0 Yes 175ug Take [address] [facility] [...] will be calling the patient . pravastatin 0 Yes 80mg QD Take [address] [facility] (PRAVACHOL) 8-16 by mouth [facility] 80 MG 10:51: daily. Medical tablet 00 Center gabapentin 0 Yes 300mg [id number] Take [address] [facility] (NEURONTIN) 8-16 [id number] mg by [facility] 300 MG 10:51: 3D mouth 3 Medical capsule 00 (three) Center times daily . OXcarbazepi 0 Yes 300mg Q.5D Take 300 [facility] [...] mouth Medic al 5,000 unit 00 daily. [place] Tab ocrelizumab Yes 1{dose} Inject [address] [facility] (OCREVUS) 8-16 Dose [facility] 30 mg/mL 10:51: intravenou Med ical Soln 00 sly every Center 6 (six) months. olmesartan Yes 5mg QD Take [address] [facility] [address] [facility] (BENICAR) 5 8-16 by mouth [facility] MG tablet 10:51: nightly . Med ical 00 [place] DULoxetine Yes 20mg QD Take [address] [facility] (CYMBALTA) 8-16 [facility] mouth [facility] 20 MG 10:51: daily. Medical capsule 00 [place] digoxin Yes 125ug QD Take 125 [facility] (LANOXIN[facility] 8-16 [facility]cg [facility] 0.125 MG 10:51: mouth Medical tablet 00 nightly . [place] alfuzosin Yes 10mg QD Take [address] [facility] [address] [facility] (UROXATRAL) 8-16 by mouth [facility] 10 mg 24 hr 10:51: daily. Medi darren tablet 00 [place] amantadine Yes 100mg QD Take [address] [facility] [address] HCL 8-16 mg by [facility] (SYMMETREL) 10:51: mouth Medic al 100 mg 00 daily. Center capsule olmesartan Yes 5mg Take 5 mg [facility] (BENICAR) 5 8-16 by mouth. [facility] MG tablet 00:00: of 00 Medicin e potassium Yes 10meq Take 10 [facility] chloride SA 8-16 [facility] (K-DUR, 00:00: mouth. of KLOR-CON 00 Medicin M10) 10 MEQ e tablet pravastatin 0 Yes 80mg Take 80 mg [facility] (PRAVACHOL) 8-16 by mouth. [facility] 80 MG 00:00: of tablet 00 Medicin e Dabigatran 0 Yes Take by [facility] Etexilate 7-11 mouth two Colle ge Mesylate 09:17: times of 150 MG CAPS 34 daily. Medici n e Mesalamine 0 Yes Take by [facility] 1.2 g TBEC 7-11 mouth. [facility] 09:17: of 34 Medicin e Cholecalcif 0 Yes 5000mg Take 5,000 [facility] kerline 7-11 mg by [place] (VITAMIN D 09:17: mouth of OR) 34 daily. Medicin e Ocrelizumab Yes Inject [facility] (OCREVUS) 7-11 [facility] 300 MG/10ML 09:17: vein once. of injection 34 Medicin e duloxetine 0 Yes 20mg Take 20 mg [facility] (CYMBALTA) 7-11 by mouth [facility] 20 MG 09:17: daily. of capsule 34 Medicin e levothyroxi 0 Yes 175ug Take 175 [facility] 7-11 mcg by [place] (SYNTHROID) 09:17: mouth of 175 MCG 34 daily. Medicin tablet e oxcarbazepi Yes 300mg Take 300 [facility] 7-11 mg by [place] (TRILEPTAL) 09:17: mouth two o f 300 MG 34 times Medicin tablet daily. e fludrocorti 0 Yes .1mg Take 0.1 [facility] sone 7-11 mg by [place] (FLORINEF) 09:17: mouth of 0.1 MG 34 daily. Medicin tablet e Ranolazine 0 Yes Take by [facility] 500 MG TB12 7-11 mouth. [facility] e 09:17: of 34 Medicin e furosemide 2021-0 Yes 40mg Take 40 mg [facility] (LASIX) 40 7-11 by mouth [facility] MG tablet 09:17: daily. of 34 Medicin e Vitamin D, 2022-0 Yes Take by [facility] Ergocalcife 7-11 mouth. [facility] [place], [id number] 09:17: of units CAPS 34 Medicin e Alfuzosin 0 Yes [id number] TAKE ONE [facility] HCl 10 MG 7-07 9100 TABLET BY Colle ge TB24 00:00: MOUTH of 00 EVERY Medicin NIGHT AT e BEDTIME Alfuzosin 2021-0 Yes [id number] TAKE ONE [facility] HCl 10 MG 7-07 9100 TABLET BY Colle ge TB24 00:00: MOUTH of 00 EVERY Medicin NIGHT AT e BEDTIME Alfuzosin 2021-0 Yes [id number] TAKE ONE [facility] HCl 10 MG 7-07 9100 TABLET BY Col[facility] ge TB24 00:00: MOUTH of 00 EVERY Medicin NIGHT AT e BEDTIME Alfuzosin 2021-0 Yes [id number] TAKE ONE [facility] HCl 10 MG 7-07 9100 TABLET BY Colle ge TB24 00:00: MOUTH of 00 EVERY Medicin NIGHT AT e BEDTIME Alfuzosin 2021-0 Yes [id number] TAKE ONE [facility] HCl 10 MG 7-07 9100 TABLET BY Colle ge TB24 00:00: MOUTH of 00 EVERY Medicin NIGHT AT e BEDTIME Cholecalcif 0 Yes 5000mg Take 5,000 [facility] kerline 6-17 mg by [place] (VITAMIN D 08:53: mouth of OR) 57 daily. Medicin e Ocrelizumab Yes Inject [facility] (OCREVUS) 6-17 [facility] 300 MG/10ML 08:53: vein once. of injection 57 Medicin e duloxetine Yes 20mg Take 20 mg [facility] (CYMBALTA) 6-17 by mouth [facility] 20 MG 08:53: daily. of capsule 57 Medicin e levothyroxi Yes 175ug Take 175 [facility] ne 6-17 mcg by [place] (SYNTHROID) 08:53: mouth of 175 MCG 57 daily. Medicin tablet e fludrocorti Yes .1mg Take 0.1 [facility] sone 6-17 mg by [place] (FLORINEF) 08:53: mouth of 0.1 MG 57 daily. Medicin tablet e Ranolazine Yes Take by [facility] 500 MG TB12 6-17 mouth. Colleg e 08:53: of 57 Medicin e furosemide 2021-0 Yes 40mg Take 40 mg [facility] (LASIX) 40 6-17 by mouth [facility] MG tablet 08:53: daily. of 57 Medicin e Vitamin D, 2021-0 Yes Take by [facility] Ergocalcife 6-17 mouth. [place], [id number] 08:53: of units CAPS 57 Medicin e Dabigatran 2021-0 Yes Take by [facility] Etexilate 6-17 mouth two [facility] Mesylate 08:53: times of 150 MG CAPS 57 daily. Medici n e Alfuzosin 2021-0 Yes [id number] TAKE ONE [facility] HCl 10 MG 5-06 9100 TABLET BY Delores brooks TB24 00:00: MOUTH AT of 00 BEDTIME Medicin e modafinil 2021-0 Yes TAKE ONE [facility] (PROVIGIL) 4-19 TABLET BY [facility] 200 MG 00:00: MOUTH of tablet 00 TWICE A Medicin DAY e modafinil 2021-0 Yes TAKE ONE [facility] (PROVIGIL) 4-19 TABLET BY [facility] 200 MG 00:00: MOUTH of tablet 00 TWICE A Medicin DAY e modafinil 2021-0 Yes TAKE ONE [facility] (PROVIGIL) 4-19 TABLET BY [facility] e[facility] 200 MG 00:00: MOUTH of tablet 00 TWICE A Medicin DAY e Amantadine 2021-0 Yes TAKE ONE [facility] HCl 100 MG 3-30 TABLET BY [facility] e[facility] TABS 00:00: MOUTH of 00 TWICE A Medicin DAY e Amantadine 2021-0 Yes TAKE ONE [facility] HCl 100 MG 3-30 TABLET BY [...] Take 5,000 [facility] kerline 3-21 mg by [facility] (VITAMIN D 09:45: mouth of OR) 41 daily. Medicin e Ocrelizumab 2022-0 Yes [facility]ject [facility] (OCREVUS) 3[facility]21 [facility] 300 MG/10ML 09:45: vein once. of injection 41 Medicin e duloxetine 0 Yes 20mg Take 20 mg [facility] (CYMBALTA) 3-21 by mouth Colle [facility] 20 MG 09:45: daily. of capsule 41 Medicin e levothyroxi 0 Yes 175ug Take 175 [facility] ne 3-21 mcg by [place] (SYNTHROID) 09:45: mouth of 175 MCG 41 daily. Medicin tablet e oxcarbazepi 0 Yes 300mg Take 300 [facility] 3-21 mg by [place] (TRILEPTAL) 09:45: mouth two o f 300 MG 41 times Medicin tablet daily. e Mesalamine Yes Take by [facility] 1.2 g TBEC 3-21 mouth. [place] 09:45: of 41 Medicin e oxcarbazepi 2021-0 Yes 300mg Take 300 [facility] 3-21 mg by [place] (TRILEPTAL) 09:45: mouth two o f 300 MG 41 times Medicin tablet daily. e amIODarone 0 Yes 200mg QD Take 1 [facility] (PACERONE) 3-[address] 200 MG 00:00: (200 mg [facility] tablet 00 total) by l mouth in the morning. amIODarone 0 Yes 200mg QD Take 1 [facility] (PACERONE) 3-[address] 200 MG 00:00: (200 mg [facility] tablet 00 total) by l mouth in the morning. digOXIN 2021-2021- No 125ug Take 125 [facility] (LANOXIN) 09-[address] 125 mcg 13:47: 00:00 mouth. [facility]osp[facility] (0.125 mg) 33 :00 l tablet midodrine 2021-2021- No 5mg [id number] Take 5 mg [facility] (PROAMATINE 09-18 [id number] by mouth 3 [facility] ) 5 MG 13:47: 00:00 3D (three) Hospita tablet 33 :00 times a l day. 2-3 times a day digOXIN 2021-0 2021- No 125ug Take 125 [facility] (LANOXIN) 2-22 02-[address] 125 mcg 13:47: 00:00 mouth. [facility]osp[facility] (0.125 mg) 33 :00 l tablet midodrine 2021-0 2- No 5mg Q.[id number] Take 5 mg [facility] (PROAMATINE 09-18 [id number] by mouth 3 [facility] ) 5 MG 13:47: 00:00 3D (three) Hospita tablet 33 :00 times a l day. 2-3 times a day Alfuzosin 2021-0 Yes [id number] TAKE ONE [facility] HCl 10 MG 09-18 9100 TABLET BY [facility]ores ge TB24 00:00: MOUTH AT of 00 BEDTIME Medicin e amlodipine 2021-0 Yes as needed. [facility] [...] MG 00:00: of tablet 00 Medicin e amLODIPine 2022-0 Yes as needed. [facility] (NORVASC) 2-12 st 2.5 mg 00:00: Hospita tablet 00 l amLODIPine 2022-0 Yes as needed. [facility] (NORVASC) 2-12 st 2.5 mg 00:00: [facility]osp[facility] tablet 00 l Amantadine 1 Yes TAKE ONE [facility] HCl 100 MG 2-13 TABLET BY [facility] ege TABS 00:00: MOUTH of 00 TWICE A Medicin DAY e amIODarone 2020-07- No 200mg Take 200 [facility] (PACERONE) 2-11 03-[address] 200 MG 00:00: 00:00 mouth. 200 [facility] tablet 00 :00 mg one day l and 100 mg next dayas alternatin g amIODarone 2020-07- No 200mg Take 200 [facility] (PACERONE) 2-11 03-[address] 200 MG 00:00: 00:00 mouth. 200 [facility] tablet 00 :00 mg one day l and 100 mg next dayas alternatin g rosuvastati 2021- No TAKE ONE [facility] (CRESTOR) 04-[address] 10 mg 00:00: 00:00 MOUTH [facility]osp[facility] tablet 00 :00 DAILY l rosuvastati 2021- No TAKE ONE [facility] n (CRESTOR) 04-[address] 10 mg 00:00: 00:00 MOUTH [facility]osp[facility] tablet 00 :00 DAILY l modafinil Yes TAKE ONE [facility] (PROVIGIL) 04-20 TABLET BY Rosanne ege 200 MG 00:00: MOUTH of tablet 00 TWICE A Medicin DAY e Dabigatran Yes Take by [facility] Etexilate - mouth two [facility] Mesylate 10:10: times of (PRADAXA) 55 daily. Medicin 150 MG CAPS e Mesalamine Yes Take by [facility] (LIALDA) 9-20 mouth. [facility] 1.2 G TBEC 10:10: of 55 Medicin e Cholecalcif Yes 5000mg Take 5,000 [facility] kerline 9-20 mg by [place] (VITAMIN D 10:10: mouth of OR) 55 [...] 175 [facility] 9-20 mcg by [place] (SYNTHROID) 10:10: mouth of 175 MCG 55 daily. Medicin tablet e oxcarbazepi Yes 300mg Take 300 [facility] 9-20 mg by [place] (TRILEPTAL) 10:10: mouth two o f 300 [...] Take 5,000 [facility] kerline 9-20 mg by [place] (VITAMIN D 10:10: mouth of OR) 55 [...] 175 [facility] 9-20 mcg by [place] (SYNTHROID) 10:10: mouth of 175 MCG 55 daily. Medicin tablet e oxcarbazepi Yes 300mg Take 300 [facility] 9-20 mg by [place] (TRILEPTAL) 10:10: mouth two o f 300 MG 55 times Medicin tablet daily. e modafinil Yes 200mg Take 1 [facility] (PROVIGIL) 9-20 Tablet by Rosanne sheffield 200 MG 00:00: mouth two of tablet 00 times Medicin daily. e modafinil 0 Yes 200mg Take 1 [facility] (PROVIGIL) 9-20 Tablet by Rosanne egpeggy 200 MG 00:00: mouth two of tablet 00 times Medicin daily. e Amantadine Yes TAKE ONE [facility] HCl 100 MG 7-27 TABLET BY [facility] ege TABS 00:00: MOUTH of 00 TWICE A Medicin DAY e Amantadine Yes TAKE ONE [facility] HCl 100 MG 7-27 TABLET BY [facility] e[facility] TABS 00:00: MOUTH of 00 TWICE A Medicin DAY e amiodarone 0 Yes 1 tablet [facility] (PACERONE) 02-02 by mouth [facility] 200 MG 00:00: twice a of tablet day Medicin e amiodarone 0 Yes 1 tablet [facility] (PACERONE) 02-02 by mouth [facility] 200 MG 00:00: twice a of tablet 00 day Medicin e amiodarone 0 Yes 200mg 200 mg. [facility] (PACERONE) 02-02 [facility] 200 MG 00:00: of tablet 00 Medicin e amiodarone 0 Yes 200mg 200 mg. [facility] (PACERONE) 02-02 [facility] 200 MG 00:00: of tablet 00 Medicin e amiodarone 0 Yes 200mg 200 mg. [facility] (PACERONE) 02-02 [facility] 200 MG 00:00: of tablet 00 Medicin e amiodarone 0 Yes 200mg 200 mg. [facility] (PACERONE) 02-02 [facility] 200 MG 00:00: of tablet 00 Medicin e amiodarone 0 Yes 200mg 200 mg. [facility] (PACERONE) 02-02 [facility] 200 MG 00:00: of tablet 00 Medicin e dorzolamide 2021- No 1[drp] Q.5D Administer [facility] (TRUSOPT) 2 02-[address] % 00:00: 00:00 into the [facility] ophthalmic 00 :00 left eye 2 l solution (two) times a day. dorzolamide 2021- No 1[drp] Q.5D [facility]ister [facility] (TRUSOPT) 2 02-01- [address] % 00:00: 00:00 into the [facility] ophthalmic 00 :00 left eye 2 l solution (two) times a day. modafinil 0 2020- No TAKE ONE [facility] (PROVIGIL) 01-18 09-20 TABLET BY [facility] 200 MG 00:00: 00:00 MOUTH of tablet 00 :00 TWICE A Medicin DAY e modafinil 2020- No TAKE ONE [facility] (PROVIGIL) 6-24 09-20 TABLET BY Col [...] Take 5,000 [facility] kerline 5-24 mg by [place] (VITAMIN D 09:11: mouth of OR) 20 [...] 175 [facility] 5-24 mcg by [place] (SYNTHROID) 09:11: mouth of 175 MCG 20 daily. Medicin tablet e oxcarbazepi Yes 300mg Take 300 [facility] 5-24 mg by [place] (TRILEPTAL) 09:11: mouth two o f 300 MG 20 times Medicin tablet daily. e prasugreL 2021- No 10mg QD Take 1 [facility] (Effient) 4-20 - tablet (10 st 10 mg 00:00: 00:00 mg total) Hospit a tablet 00 :00 by mouth l daily. prasugreL 2021- No 10mg QD Take 1 [facility] (Effient) 4-20 - tablet (10 st 10 mg 00:00: 00:00 mg total) Hospit a tablet 00 :00 by mouth l daily. digoxin Yes 125ug Take 125 [facility] (LANOXIN) 4-13 mcg by [place] 125 MCG 00:00: mouth at of tablet 00 bedtime. Medicin e digoxin Yes 125ug Take 125 [facility] (LANOXIN) 4-13 mcg by [place] 125 MCG 00:00: mouth at of tablet 00 bedtime. Medicin e digoxin Yes 125ug Take 125 [facility] (LANOXIN) 4-13 mcg by [place] 125 MCG 00:00: mouth at of tablet 00 bedtime. Medicin e digoxin Yes 125ug Take 125 [facility] (LANOXIN) 4-13 mcg by [place] 125 MCG 00:00: mouth at of tablet 00 bedtime. Medicin e digoxin Yes 125ug Take 125 [facility] (LANOXIN) 4-13 mcg by [place] 125 MCG 00:00: mouth at of tablet 00 bedtime. Medicin e digoxin Yes 125ug Take 125 [facility] (LANOXIN) 4-13 mcg by [place] 125 MCG 00:00: mouth at of tablet 00 bedtime. Medicin e digoxin Yes 125ug Take 125 [facility] (LANOXIN) 4-13 mcg by [place] 125 MCG 00:00: mouth at of tablet 00 bedtime. Medicin e digoxin 2021- No 125ug Take 125 [facility] (LANOXIN) 4-13 08-29 mcg by [place] 125 MCG 00:00: 00:00 mouth at of tablet 00 :00 bedtime. Medicin e latanoprost 2021- No 1[drp] QD [facility] (XALATAN) 10-[address] 0.005 % 00:00: 00:00 both eyes [facility] ophthalmic 00 :00 nightly. l solution latanoprost 2021- No 1[drp] QD [facility] (XALATAN) 10-[address] 0.005 % 00:00: 00:00 both eyes [facility] ophthalmic 00 :00 nightly. l solution Dabigatran Yes Take by [facility] Etexilate 09-25 mouth two [facility] Mesylate 15:43: times of (PRADAXA) 03 daily. Medicin 150 MG CAPS e Mesalamine Yes Take by [facility] (LIALDA) 3- mouth. [place] 1.2 G TBEC 15:43: of 03 Medicin e Cholecalcif Yes 5000mg Take 5,000 [facility] kerline 3- mg by [place] (VITAMIN D 15:43: mouth of OR) 03 daily. Medicin e Ocrelizumab Yes Inject [facility] (OCREVUS[facility] 300 MG/10ML 15:43: vein once. of injection Medicin e duloxetine Yes 20mg Take 20 mg [facility] (CYMBALTA) 3-01 by mouth Colle [facility] 20 MG 15:43: daily. of capsule Medicin e levothyroxi Yes 175ug Take 175 [facility] 3-01 mcg by [place] (SYNTHROID) 15:43: mouth of 175 MCG 03 daily. Medicin tablet e oxcarbazepi 2020-0 Yes 300mg Take 300 [facility] 3-01 mg by [place] (TRILEPTAL) 15:43: mouth two o f 300 MG 03 times Medicin tablet daily. e Dabigatran 2020-0 Yes Take by [facility] Etexilate 3- mouth two [facility] Mesylate 15:43: times of (PRADAXA) 03 daily. Medicin 150 MG CAPS e Mesalamine 2020-0 Yes Take by [facility] (LIALDA) 3- mouth. [place] 1.2 G TBEC 15:43: of 03 Medicin e Cholecalcif 2020-0 Yes 5000mg Take 5,000 [facility] kerline 3-01 mg by [place] (VITAMIN D 15:43: mouth of OR) 03 [...] Yes 175ug Take 175 [facility] 3- mcg by [place] (SYNTHROID) 15:43: mouth of 175 MCG 03 daily. Medicin tablet e oxcarbazepi 2020-0 Yes 300mg Take 300 [facility] 3-01 mg by [place] (TRILEPTAL) 15:43: mouth two o f 300 MG 03 times Medicin tablet daily. e Dabigatran 2020-0 Yes Take by [facility] Etexilate - mouth two [facility] Mesylate 15:43: times of (PRADAXA) 03 daily. Medicin 150 MG CAPS e Mesalamine 2020-0 Yes Take by [facility] (LIALDA) 3- mouth. [place] 1.2 G TBEC 15:43: of 03 Medicin e Cholecalcif 2020-0 Yes 5000mg Take 5,000 [facility] kerline 3-01 mg by [place] (VITAMIN D 15:43: mouth of OR) 03 daily. Medicin e Ocrelizumab Yes [facility]ject [facility] (OCREVUS[facility] 300 MG/10ML 15:43: vein once. of injection Medicin e duloxetine Yes 20mg Take 20 mg [facility] (CYMBALTA) 09-25 by mouth Colle ge 20 MG 15:43: daily. of capsule Medicin e levothyroxi Yes 175ug Take 175 [facility] - mcg by [place] (SYNTHROID) 15:43: mouth of 175 MCG 03 daily. Medicin tablet e oxcarbazepi Yes 300mg Take 300 [facility] 3- mg by [place] (TRILEPTAL) 15:43: mouth two o f 300 MG 03 times Medicin tablet daily. e olmesartan 2020- No 5mg Take 5 mg [facility] (BENICAR) 5 09-25- by mouth Col [facility]ge MG tablet 15:41: 00:00 daily. of 20 :00 Medicin e amlodipine 2020- No 2.5mg Take 2.5 [facility] (NORVASC) 09-25- mg by [place] 2.5 MG 15:41: 00:00 mouth of tablet 08 :00 daily. Medicin e rosuvastati Yes 10mg Take 10 mg [facility] (CRESTOR) 2-26 by mouth [facility] ege 10 MG 00:00: daily. of tablet Medicin e rosuvastati Yes 10mg Take 10 mg [facility] n (CRESTOR) 2-26 by mouth Rosanne ege [...] rosuvastati 0 Yes 10mg Take 10 mg [facility] n (CRESTOR) 2-26 by mouth Rosanne ege [...] rosuvastati 0 Yes 10mg Take 10 mg [facility] n (CRESTOR) 2-26 by mouth Ros[facility] ege 10 MG 00:00: daily. of tablet 00 Medicin e Alfuzosin 2020-0 Yes [id number] 10mg Take 10 mg [facility] HCl 10 MG 2-16 9100 by mouth Colleg [facility] TB24 00:00: at of 00 bedtime. Medicin e Alfuzosin 2020-0 Yes [id number] 10mg Take 10 mg [facility] HCl 10 MG 2-16 9100 by mouth Colleg [facility] TB24 00:00: at of 00 bedtime. Medicin e Alfuzosin 2020-0 Yes [id number] 10mg Take 10 mg [facility] HCl 10 MG 2-16 9100 by mouth [facility] TB24 00:00: at of 00 bedtime. Medicin e Alfuzosin 2020-0 Yes [id number] 10mg Take 10 mg [facility] HCl 10 MG 2-16 9100 by mouth [facility] TB24 00:00: at of 00 bedtime. Medicin e Alfuzosin 2020-0 Yes [id number] 10mg Take 10 mg [facility] HCl 10 MG 2-16 9100 by mouth [facility] TB24 00:00: at of 00 bedtime. Medicin e Alfuzosin 2020-0 Yes [id number] 10mg Take 10 mg [facility] HCl 10 MG 2-16 9100 by mouth [facility] TB24 00:00: at of 00 bedtime. Medicin e latanoprost 2020-0 Yes [facility] (XALATAN) 2-08 College 0.005 % 00:00: of ophthalmic 00 Medicin solution e latanoprost 2020-0 Yes [facility] (XALATAN) 2-08 [place] 0.005 % 00:00: of ophthalmic 00 Medicin solution e latanoprost 2020-0 Yes [facility] (XALATAN) 2-08 [place] 0.005 % 00:00: of ophthalmic 00 Medicin solution e latanoprost 2020-0 Yes [facility] (XALATAN) 2-08 [place] 0.005 % 00:00: of ophthalmic 00 Medicin solution e latanoprost 2020-0 Yes [facility] (XALATAN) 2-08 [place] 0.005 % 00:00: of ophthalmic 00 Medicin solution e latanoprost 2020-0 Yes [facility] (XALATAN) 2-08 [place] 0.005 % 00:00: of ophthalmic 00 Medicin solution e latanoprost 2020-0 Yes [facility] (XALATAN) 2-08 [place] 0.005 % 00:00: of ophthalmic 00 Medicin solution e latanoprost 2020-0 2- No [facility] (XALATAN) 2-08 07-11 [facility] 0.005 % 00:00: 00:00 of ophthalmic 00 :00 Medicin solution e gabapentin 2020-0 Yes TAKE [...] gabapentin Yes TAKE THREE [facility] (NEURONTIN) 2-04 CAPSULES Rosanne ege 300 MG 00:00: BY MOUTH of capsule 00 THREE Medicin TIMES A e DAY gabapentin 0 Yes TAKE THREE [facility] (NEURONTIN) 2-04 CAPSULES [facility] 300 MG 00:00: BY MOUTH of capsule 00 THREE Medicin TIMES A e DAY gabapentin Yes TAKE THREE [facility] (NEURONTIN) 2-04 CAPSULES [facility] e[facility] 300 MG 00:00: BY MOUTH of capsule 00 THREE Medicin TIMES A e DAY gabapentin Yes TAKE THREE [facility] (NEURONTIN) 2-04 CAPSULES [facility] e[facility] 300 MG 00:00: BY MOUTH of capsule 00 THREE Medicin TIMES A e DAY gabapentin Yes TAKE THREE [facility] (NEURONTIN) 2-04 CAPSULES [facility] 300 MG 00:00: BY MOUTH of capsule 00 THREE Medicin TIMES A e DAY gabapentin Yes TAKE THREE [facility] (NEURONTIN) 2-04 CAPSULES [facility] e[facility] 300 MG 00:00: BY MOUTH of capsule 00 THREE Medicin TIMES A e DAY lorazepam 2020-0 Yes .5mg Take 1 [facility] (ATIVAN) 2-03 Tablet by [facility] 0.5 MG 00:00: mouth of tablet 00 every 6 Medicin hours as e needed for Anxiety. lorazepam 0 Yes .5mg Take 1 [facility] (ATIVAN) 2-03 Tablet by Colleg [facility] 0.5 MG 00:00: mouth of tablet 00 every 6 Medicin hours as e needed for Anxiety. LORAZepam 2020-0 2- No .5mg Take 0.5 [facility] (ATIVAN) 2-03 02-[address] 0.5 MG 00:00: 00:00 mouth once [facility] tablet 00 :00 as needed l for anxiety. Only using when he has to get an MRI(per [place] [facility] Aware patient last filled on 08/30/2020 for quantity of 4 day supply of 1) LORAZepam 2020-2021- No .5mg Take 0.5 [facility] (ATIVAN) 2 02-[address] 0.5 MG 00:00: 00:00 mouth once [facility] tablet 00 :00 as needed l for anxiety. Only using when he has to get an MRI(per [place] [facility] Aware patient last filled on 08/30/2020 for quantity of 4 day supply of 1) lorazepam 2020- No .5mg Take 1 [facility] (ATIVAN) 2 04-15 Tablet by Colle ge 0.5 MG 00:00: 00:00 mouth of tablet 00 :00 every 6 Medicin hours as e needed for Anxiety. clopidogrel 2019-07 Yes 75mg Take 75 mg [facility] (PLAVIX) 75 2-18 by mouth Rosanne ege MG Tablet 00:00: daily. of 00 Medicin e clopidogrel 2019-07 Yes 75mg Take 75 mg [facility] (PLAVIX) 75 2-18 by mouth Rosanne ege MG Tablet 00:00: daily. of Medicin e clopidogrel 2019-07 Yes 75mg Take 75 mg [facility] (PLAVIX) 75 2-18 by mouth Rosanne ege [...] 00 TWICE A Medicin DAY e Amantadine 2020-1 Yes TAKE ONE [facility] HCl 100 MG 1-27 TABLET BY [facility] ege TABS 00:00: MOUTH of 00 TWICE A Medicin DAY e Amantadine 2019- Yes TAKE ONE [facility] HCl 100 MG 1-27 TABLET BY Ros[facility] ege TABS 00:00: MOUTH of 00 TWICE A Medicin DAY e Amantadine 2019- Yes TAKE ONE [facility] HCl 100 MG 1-27 TABLET BY Rosanne ege TABS 00:00: MOUTH of 00 TWICE A Medicin DAY e Amantadine 2019- Yes TAKE ONE [facility] HCl 100 MG 1-27 TABLET BY Rosanne ege TABS 00:00: MOUTH of 00 TWICE A Medicin DAY e amiodarone 2020-0 Yes [facility] (PACERONE) 03-03 [place] 200 MG 00:00: of tablet 00 Medicin e amiodarone 2020-0 Yes [facility] (PACERONE) 03-03 [place] 200 MG 00:00: of tablet 00 Medicin e amiodarone 2020-0 2020- No [facility] (PACERONE) 03-03 04-15 [place] 200 MG 00:00: 00:00 of tablet 00 :00 Medicin e Dabigatran 2020-0 Yes Take by [facility] Etexilate 3-17 mouth two [facility] Mesylate 16:18: times of (PRADAXA) 48 daily. Medicin 150 MG CAPS e Mesalamine 2019-0 Yes Take by [facility] (LIALDA) 3-17 mouth. [place] 1.2 G TBEC 16:18: of 48 Medicin e Cholecalcif 2020-0 Yes 5000mg Take 5,000 [facility] kerline 3-17 mg by [place] (VITAMIN D 16:18: mouth of OR) 48 [...] 2.5 [facility] (NORVASC) 3-17 mg by [place] 2.5 MG 16:18: mouth of tablet 48 daily. Medicin e levothyroxi 2020-0 Yes 175ug Take 175 [facility] 3-17 mcg by [place] (SYNTHROID) 16:18: mouth of 175 MCG 48 daily. Medicin tablet e oxcarbazepi 2020-0 Yes 300mg Take 300 [facility] [place] [facility] 3-17 mg by [place] (TRILEPTAL) 16:18: mouth two o f 300 MG 48 times Medicin tablet daily. e oxcarbazepi 2020-0 Yes 150mg Take 150 [facility] [place] [facility] 3-17 mg by [place] (TRILEPTAL) 16:18: mouth two o f 150 MG 48 times Medicin tablet daily. e Tamsulosin 2020-0 Yes [id number] .4mg Take 0.4 [facility] HCl 0.4 MG 3-17 9100 mg by [place] CAPS 00:00: mouth at of 00 bedtime. Medicin e ciprofloxac 2020-0 Yes [id number] 500mg Take 1 Tab [facility] in (CIPRO) 3-17 by mouth [facility] 500 MG 00:00: two times of tablet 00 daily. Medicin e Amantadine 2020-0 Yes TAKE ONE [facility] HCl 100 MG 3-16 TABLET BY [...] Take 5,000 [facility] kerline 2-25 mg by [place] (VITAMIN D 19:48: mouth of OR) 18 [...] e LATANOPROST 2019-0 2020- No Apply to [facility] OP 2-25 02-25 eye. [facility] 19:48: 00:00 of 18 :00 Medicin e potassium 2020-0 2020- No 10meq Take 10 [facility] chloride 2-25 02-25 mEq by [facility] (KDUR) 10 19:48: 00:00 mouth of MEQ [...] of tablet 00 daily. Medicin e propylene 2020-0 2- No 1[drp] Q.25D Apply 1 M ethodi glycol 2-09-[address] (SYSTANE 00:00: 00:00 [facility]) 00 :00 (four) l 0.6 % drops times a day. propylene 2020-0 2- No 1[drp] Q.25D Apply 1 M ethodi glycol 2-09-[address] (SYSTANE 00:00: 00:00 [facility] BALANCE) 00 :00 (four) l 0.6 % drops times a day. Cholecalcif 2020-0 Yes 5000mg Take 5,000 [facility] kerline 1-27 mg by [place] (VITAMIN D 18:14: mouth of OR) 28 daily. Medicin e amiodarone 2020-0 Yes Inject [facility] (CORDARONE) 1- into the [facility] 50 mg/mL 18:14: vein. of injection 28 Medicin e Ocrelizumab 2020-0 Yes Inject [facility] (OCREVUS) 1- into the [facility] 300 MG/10ML 18:14: vein once. of injection 28 Medicin e furosemide 2020-0 Yes 40mg Take 40 mg [facility] (LASIX) 40 1-27 by mouth Colle ge MG tablet 18:14: daily. of 28 Medicin e levothyroxi 2020-0 Yes 150ug Take 150 [facility] ne 1-27 mcg by [place] (SYNTHROID) 18:14: mouth of 150 MCG 28 daily. Medicin tablet e Dabigatran 2020-0 Yes Take by [facility] Etexilate -27 mouth two Colle ge Mesylate 18:14: times of (PRADAXA) 28 daily. Medicin 150 MG CAPS e LATANOPROST 2020-0 Yes Apply to [facility] OP 08-23 eye. [place] 18:14: of 28 Medicin e potassium 2020-0 Yes 10meq Take 10 [facility] chloride 1-27 mEq by [facility] (KDUR) 10 18:14: mouth of MEQ tablet 28 daily. Medicin e Mesalamine Yes Take by [facility] (LIALDA) 1-27 mouth. [facility] 1.2 G TBEC 18:14: of 28 Medicin e methylPREDN 2018-07 Yes Take by [facility] ISolone 1-15 mouth as [facility] (MEDROL 00:00: directed. of DOSEPACK) 4 00 Medicin MG tablet e methylPREDN 2018-07 2020- No Take by [facility] ISolone 1-15 02- mouth as [facility] (MEDROL 00:00: 00:00 directed. of DOSEPACK) 4 00 :00 Medicin MG tablet e modafinil 2018-07 Yes TAKE ONE [facility] (PROVIGIL) 1-08 TABLET BY [facility] 200 MG 00:00: MOUTH of tablet 00 TWICE A Medicin DAY e modafinil 2018-07 2020- No TAKE ONE [facility] (PROVIGIL) 1-08 - TABLET BY Col lege 200 MG 00:00: [...] 00 TWICE A Medicin DAY e Amantadine 2018- Yes TAKE ONE [facility] HCl 100 MG 3-25 TABLET BY [facility] TABS 00:00: MOUTH of 00 TWICE A Medicin DAY e Amantadine Yes TAKE ONE [facility] HCl 100 MG 3-25 TABLET BY [facility] TABS 00:00: MOUTH of 00 TWICE A Medicin DAY e Amantadine Yes TAKE ONE [facility] HCl 100 MG 3-25 TABLET BY [facility] TABS 00:00: MOUTH of 00 TWICE A Medicin DAY e AmANTadine Yes 100mg Q.5D Take 100 Me thodi HCl 100 mg 3-[address] tablet 00:00: mouth 2 Hospita 00 (two) l times a day. AmANTadine Yes 100mg Q.5D Take 100 Me thodi HCl 100 mg 3-[address] tablet 00:00: mouth 2 [facility]osp[facility] 00 (two) l times a day. furosemide Yes 40mg Take 40 mg [facility] (LASIX) 40 1-14 by mouth Colle ge MG tablet 20:27: daily. of 10 Medicin e levothyroxi Yes 150ug Take 150 [facility] ne 1-14 mcg by [place] (SYNTHROID) 20:27: mouth of 150 MCG 10 daily. Medicin tablet e Dabigatran Yes Take by [facility] Etexilate 1-14 mouth two Colle ge Mesylate 20:27: times of (PRADAXA) 10 daily. Medicin 150 MG CAPS e LATANOPROST Yes Apply to [facility] CHAO 1-14 eye. [place] 20:27: of 10 Medicin e potassium Yes 10meq Take 10 [facility] chloride 1-14 mEq by [place] (KDUR) 10 20:27: mouth of MEQ tablet 10 daily. Medicin e Mesalamine Yes Take by [facility] (LIALDA) 1-14 mouth. College 1.2 G TBEC 20:27: of 10 Medicin e Cholecalcif Yes 5000mg Take 5,000 [facility] kerline 1-14 mg by [place] (VITAMIN D 20:27: mouth of OR) 10 daily. Medicin e amiodarone Yes Inject [facility] (CORDARONE) 1-14 into the [facility] 50 mg/mL 20:27: vein. of injection 10 Medicin e Ocrelizumab Yes Inject [facility] (OCREVUS) 1-14 into the [facility] 300 MG/10ML 20:27: vein once. of injection 10 Medicin e oxcarbazepi 2016-0 Yes [facility] ne 04-02 College (TRILEPTAL) 00:00: of 600 MG 00 Medicin tablet e oxcarbazepi 2015-0 Yes [facility] ne 04-02 College (TRILEPTAL) 00:00: of 600 MG 00 Medicin tablet e oxcarbazepi 2016-0 2020- No [facility] ne 04-02 College (TRILEPTAL) 00:00: 00:00 of 600 MG 00 :00 Medicin tablet e esomeprazol 2015-0 Yes [facility] (NEXIUM) 8-17 College 40 MG 00:00: of capsule 00 Medicin e esomeprazol 2015-0 Yes [facility] (NEXIUM) 8-17 [facility] 40 MG 00:00: of capsule 00 Medicin e esomeprazol 0 Yes [facility] e (NEXIUM) 8-17 [facility] 40 MG 00:00: of capsule 00 Medicin e esomeprazol 2015-0 Yes [facility] (NEXIUM) 8-17 [facility] 40 MG 00:00: of capsule 00 Medicin e esomeprazol 2015-0 Yes [facility] e (NEXIUM) 8-17 [facility] 40 MG 00:00: of capsule 00 Medicin e esomeprazol 2015-0 Yes [facility] (NEXIUM) 8-17 [facility] 40 MG 00:00: of capsule 00 Medicin e esomeprazol 2015-0 Yes [facility] (NEXIUM) 8-17 [facility] 40 MG 00:00: of capsule 00 Medicin e esomeprazol 2015-0 Yes [facility] e (NEXIUM) 8-17 [facility] 40 MG 00:00: of capsule 00 Medicin e esomeprazol 2015-0 Yes [facility] (NEXIUM) 8-17 [facility] 40 MG 00:00: of capsule 00 Medicin e esomeprazol 2015-0 Yes [facility] e (NEXIUM) 8-17 [facility] 40 MG 00:00: of capsule 00 Medicin e esomeprazol 2015-0 Yes [facility] e (NEXIUM) 8-17 [facility] 40 MG 00:00: of capsule 00 Medicin e esomeprazol 2015-0 Yes [facility] e (NEXIUM) 8-17 [facility] 40 MG 00:00: of capsule 00 Medicin e esomeprazol Yes [facility] e (NEXIUM) 8-17 [facility] 40 MG 00:00: of capsule Medicin e esomeprazol Yes [facility] e (NEXIUM) 8-17 [facility] 40 MG 00:00: of capsule Medicin e esomeprazol Yes [facility] e (NEXIUM) 8-17 [facility] 40 MG 00:00: of capsule Medicin e esomeprazol Yes [facility] e (NEXIUM) 8-17 [facility] 40 MG 00:00: of capsule Medicin e esomeprazol Yes [facility] e (NEXIUM) 8-17 [facility] 40 MG 00:00: of capsule Medicin e mesalamine mesalamine No mesalamine [facility] 1.2 gram 1.2 gram 1.2 gram Met ro tablet,loly tablet,loly tablet,del Urology yed release yed release ayed release midodrine 5 midodrine 5 No midodrine [facility] mg tablet mg tablet 5 mg [facility] tablet U[facility] modafinil modafinil No modafinil [facility] 200 mg 200 mg 200 mg [facility] tablet tablet tablet Urology oxcarbazepi oxcarbazepi No oxcarbazep [facility] ne 300 mg ne 300 mg ine 300 mg [facility] tablet tablet tablet Urology Pradaxa 150 Pradaxa 150 No Pradaxa [facility] mg capsule mg capsule 150 mg M etro capsule Urology ranolazine ranolazine No ranolazine [facility] ER 500 mg ER 500 mg ER 500 mg [facility] tablet,exte tablet,exte tablet,ext Urology nded nded ended release,12 release,12 release,12 hr hr hr rosuvastati rosuvastati No rosuvastat [facility] n 10 mg n 10 mg in 10 mg [facility] tablet tablet tablet Urology sulfamethox sulfamethox No sulfametho [facility] azole 800 azole 800 xazole 800 [facility] mg-trimetho mg-trimetho mg-trimeth Urology prim 160 mg prim 160 mg oprim 160 tablet tablet mg tablet vancomycin vancomycin No vancomycin [facility] 125 mg 125 mg 125 mg [facility] capsule capsule capsule Urolog y amantadine amantadine No amantadine [facility] HCl 100 mg HCl 100 mg HCl 100 mg [facility] tablet tablet tablet Urology amiodarone amiodarone No amiodarone [facility] 200 mg 200 mg 200 mg [facility] tablet tablet tablet Urology amlodipine amlodipine No amlodipine [facility] 2.5 mg 2.5 mg 2.5 mg [facility] tablet tablet tablet Urology amlodipine amlodipine No amlodipine [facility] 5 mg tablet 5 mg tablet 5 mg M etro tablet Urology cefpodoxime cefpodoxime No cefpodoxim [facility] 200 mg 200 mg e 200 mg [facility] tablet TAKE tablet TAKE tablet Urology 1 TABLET 1 TABLET TAKE 1 ORALLY ORALLY TABLET EVERY 12 EVERY 12 ORALLY HOURS FOR HOURS FOR EVERY 12 10 DAYS 10 DAYS HOURS FOR 10 DAYS colchicine colchicine No colchicine [facility] 0.6 mg 0.6 mg 0.6 mg [facility] tablet tablet tablet Urology digoxin 125 digoxin 125 No digoxin [facility] mcg (0.125 mcg (0.125 125 mcg [facility] mg) tablet mg) tablet (0.125 mg) Urology tablet duloxetine duloxetine No duloxetine [facility] 20 mg 20 mg 20 mg [facility] capsule,del capsule,del capsule,de Urology ayed ayed layed release release release esomeprazol esomeprazol No esomeprazo [facility] e magnesium e magnesium le M etro 40 mg 40 mg magnesium Urology capsule,del capsule,del 40 mg ayed ayed capsule,de release release layed release fludrocorti fludrocorti No fludrocort [facility] sone 0.1 mg sone 0.1 mg isone 0.1 [facility] tablet tablet mg tablet Urolog y levothyroxi levothyroxi No levothyrox [facility] ne 175 mcg ne 175 mcg ine 175 [facility] tablet tablet mcg tablet Urolo gy mesalamine mesalamine No mesalamine [facility] 1.2 gram 1.2 gram 1.2 gram Met ro tablet,loly tablet,loly tablet,del Urology yed release yed release ayed release midodrine 5 midodrine 5 No midodrine [facility] mg tablet mg tablet 5 mg [facility] tablet Urology modafinil modafinil No modafinil [facility] 200 mg 200 mg 200 mg [facility] tablet tablet tablet Urology oxcarbazepi oxcarbazepi No oxcarbazep [facility] ne 300 mg ne 300 mg ine 300 mg [facility] tablet tablet tablet Urology Pradaxa 150 Pradaxa 150 No Pradaxa [facility] mg capsule mg capsule 150 mg M etro capsule Urology ranolazine ranolazine No ranolazine [facility] ER 500 mg ER 500 mg ER 500 mg [facility] tablet,exte tablet,exte tablet,ext Urology nded nded ended release,12 release,12 release,12 hr hr hr rosuvastati rosuvastati No rosuvastat [facility] n 10 mg n 10 mg in 10 mg [facility] tablet tablet tablet Urology sulfamethox sulfamethox No sulfametho [facility] azole 800 azole 800 xazole 800 [facility] mg-trimetho mg-trimetho mg-trimeth Urology prim 160 mg prim 160 mg oprim 160 tablet tablet mg tablet Uroxatral Uroxatral No 2 Q1D Uroxatral [facility] 10 mg 10 mg 10 mg [facility] tablet,exte tablet,exte tablet,ext Urology nded nded ended release release release Take 2 Take 2 Take 2 tablets tablets tablets every day every day every day by oral by oral by oral route. route. route. vancomycin vancomycin No vancomycin [facility] 125 mg 125 mg 125 mg [facility] capsule capsule capsule Urolog y alfuzosin alfuzosin No alfuzosin [facility] ER 10 mg ER 10 mg ER 10 mg Met ro tablet,exte tablet,exte tablet,ext Urology nded nded ended release 24 release 24 release 24 hr Take 2 hr Take 2 hr Take 2 tablets tablets tablets every day every day every day by oral by oral by oral route. route. route. amantadine amantadine No amantadine [facility] HCl 100 mg HCl 100 mg HCl 100 mg [facility] tablet tablet tablet Urology amiodarone amiodarone No amiodarone [facility] 200 mg 200 mg 200 mg [facility] tablet tablet tablet Urology amlodipine amlodipine No amlodipine [facility] 2.5 mg 2.5 mg 2.5 mg [facility] tablet tablet tablet Urology amlodipine amlodipine No amlodipine [facility] 5 mg tablet 5 mg tablet 5 mg M etro tablet Urology digoxin 125 digoxin 125 No digoxin [facility] mcg (0.125 mcg (0.125 125 mcg [facility] mg) tablet mg) tablet (0.125 mg) Urology tablet duloxetine duloxetine No duloxetine [facility] 20 mg 20 mg 20 mg [facility] capsule,del capsule,del capsule,de Urology ayed ayed layed release release release esomeprazol esomeprazol No esomeprazo [facility] e magnesium e magnesium le M etro 40 mg 40 mg magnesium Urology capsule,del capsule,del 40 mg ayed ayed capsule,de release release layed release fludrocorti fludrocorti No fludrocort [facility] sone 0.1 mg sone 0.1 mg isone 0.1 [facility] tablet tablet mg tablet Urolog y gabapentin gabapentin No gabapentin [facility] 300 mg 300 mg 300 mg [facility] capsule capsule capsule Urolog y levothyroxi levothyroxi No levothyrox [facility] ne 175 mcg ne 175 mcg ine 175 [facility] tablet tablet mcg tablet Urolo gy Immunizations Ordered Immunization Filled Immunization Date Status Commen ts Source Name Name Pneumococcal 2021-08-22 Completed [facility] Polysaccharide 00:00:00 [facility] Pneumococcal 2021-08-22 Completed [facility] Polysaccharide 00:00:00 Hospital Influenza (IM) 2021-08-11 Completed [facility] Preservative Free 00:00:00 [facility]osp[facility] Influenza (IM) 2021-08-11 Completed [facility] Preservative Free 00:00:00 [facility]osp[facility] l PFIZER COVID-19 MRNA 2021-03-24 Completed [facility] VACCINATION 00:00:00 [facility] Pfizer SARS-CoV-2 2021-03-24 Completed [facility] Vaccination 00:00:00 of Medicine Pfizer SARS-CoV-2 2021-03-24 Completed [facility] Vaccination 00:00:00 of Medicine Pfizer SARS-CoV-2 2021-03-24 Completed [facility] Vaccination 00:00:00 of Medicine Pfizer SARS-CoV-2 2021-03-24 Completed [facility] Vaccination 00:00:00 of Medicine Pfizer SARS-CoV-2 2021-03-24 Completed [facility] Vaccination 00:00:00 of Medicine Pfizer SARS-CoV-2 2021-03-24 Completed [facility] Vaccination 00:00:00 of Medicine PFIZER COVID-19 MRNA 2021-03-24 Completed [facility] VACCINATION 00:00:00 [facility] PFIZER COVID-19 MRNA 2020-09-23 Completed [facility] VACCINATION 00:00:00 [facility] PFIZER COVID-19 MRNA 2020-09-23 Completed [facility] VACCINATION 00:00:00 [facility] PFIZER COVID-19 MRNA 2020-09-02 Completed [facility] VACCINATION 00:00:00 [facility] PFIZER COVID-19 MRNA 2020-09-02 Completed [facility] VACCINATION 00:00:00 [facility] FLUZONE HIGH-DOSE PF 2020-05-04 Completed [facility] 00:00:00 Hospital FLUZONE HIGH-DOSE PF 2020-05-04 Completed [facility] 00:00:00 [facility] FLUZONE KATIE 2018-05-11 Completed [facility] 00:00:00 [facility] FLUZONE KATIE 2018-05-11 Completed [facility] 00:00:00 Hospital Vital Signs Vital Name Observation Time Observation Value Comments Source HEIGHT 2020-12-20 06:00:00 193 cm WEIGHT 2020-12-20 06:00:00 75.7 kg HEIGHT 2020-12-19 13:14:00 193 cm WEIGHT 2020-12-19 13:14:00 74.844 kg Systolic blood 2022-07-12 17:13:00 138 mm[Hg] [facility] pressure Medicine Diastolic blood 2022-07-12 17:13:00 88 mm[Hg] [facility] pressure Medicine Heart rate 2022-07-12 17:13:00 56 /min [facility] Body temperature 2022-07-12 17:13:00 36.44 [facility] Respiratory rate 2022-07-12 17:13:00 17 /min [facility] Body height 2022-07-12 17:13:00 193 cm [facility] Body weight 2022-07-12 17:13:00 67.042 kg [facility] BMI 2022-07-12 17:13:00 17.99 kg/m2 [facility] Systolic blood 2022-04-17 21:38:00 109 mm[Hg] [facility] pressure Medicine Diastolic blood 2022-04-17 21:38:00 69 mm[Hg] [facility] pressure Medicine Heart rate 2022-04-17 21:38:00 71 /min [facility] Body height 2022-04-17 21:38:00 193 cm [facility] Body weight 2022-04-17 21:38:00 68.493 kg [facility] BMI 2022-04-17 21:38:00 18.38 kg/m2 [facility] Systolic blood 2022-03-25 14:00:00 135 mm[Hg] [facility] pressure Medicine Diastolic blood 2022-03-25 14:00:00 85 mm[Hg] [facility] pressure Medicine Heart rate 2022-03-25 14:00:00 63 /min [facility] Body temperature 2022-03-25 14:00:00 36.72 Vaishnavi [facility] Respiratory rate 2022-03-25 14:00:00 16 /min [facility] Body height 2022-03-25 14:00:00 193 cm [facility] Body weight 2022-03-25 14:00:00 68.947 kg [facility] BMI 2022-03-25 14:00:00 18.50 kg/m2 [facility] Oxygen saturation in 2022-03-25 14:00:00 99 /min [facility] Arterial blood by [facility] Pulse oximetry HEIGHT 2022-03-12 06:25:00 188 cm [...] kg Systolic blood 2022-02-04 14:16:00 98 mm[Hg] [facility] pressure Medicine Diastolic blood 2022-02-04 14:16:00 64 mm[Hg] [facility] Medicine Heart rate 2022-02-04 14:16:00 71 /min [facility] Body temperature 2022-02-04 14:16:00 36.78 Vaishnavi [facility] Respiratory rate 2022-02-04 14:16:00 16 /min [facility] Body height 2022-02-04 14:16:00 193 cm [facility] Body weight 2022-02-04 14:16:00 70.308 kg [facility] BMI 2022-02-04 14:16:00 18.87 kg/m2 [facility] Oxygen saturation in 2022-02-04 14:16:00 99 /min [facility] Arterial blood by Medicine Pulse oximetry Systolic blood 2022-01-11 13:46:00 98 mm[Hg] [facility] pressure Medicine Diastolic blood 2022-01-11 13:46:00 60 mm[Hg] [facility] pressure Medicine Heart rate 2022-01-11 13:46:00 68 /min [facility] Body height 2022-01-11 13:46:00 193 cm [facility] Body weight 2022-01-11 13:46:00 69.854 kg [facility] BMI 2022-01-11 13:46:00 18.75 kg/m2 [facility] Systolic blood 2021-10-15 14:49:00 128 mm[Hg] [facility] pressure Medicine Diastolic blood 2021-10-15 14:49:00 76 mm[Hg] [facility] pressure Medicine Heart rate 2021-10-15 14:49:00 65 /min [facility] Respiratory rate 2021-10-15 14:49:00 16 /min [facility] Body height 2021-10-15 14:49:00 193 cm [facility] Body weight 2021-10-15 14:49:00 72.485 kg [facility] BMI 2021-10-15 14:49:00 19.45 kg/m2 [facility] Systolic blood 2021-04-16 15:06:00 96 mm[Hg] [facility] of pressure Medicine Diastolic blood 2021-04-16 15:06:00 63 mm[Hg] [facility] of pressure Medicine Heart rate 2021-04-16 15:06:00 69 /min [facility] Body height 2021-04-16 15:06:00 193 cm [facility] Body weight 2021-04-16 15:06:00 74.39 kg [facility] BMI 2021-04-16 15:06:00 19.96 kg/m2 [facility] Systolic blood 2020-12-18 14:09:00 169 mm[Hg] [facility] of pressure Medicine Diastolic blood 2020-12-18 14:09:00 108 mm[Hg] [facility] Medicine Heart rate 2020-12-18 14:09:00 67 /min [facility] Body temperature 2020-12-18 14:09:00 36.28 Vaishnavi [facility] Respiratory rate 2020-12-18 14:09:00 16 /min [facility] Body height 2020-12-18 14:09:00 193 cm [facility] Body weight 2020-12-18 14:09:00 75.841 kg [facility] BMI 2020-12-18 14:09:00 20.35 [facility]2 [facility] Oxygen saturation in 2020-12-18 14:09:00 100 /min [facility] Arterial blood by [facility] Pulse oximetry Systolic blood 2020-11-09 15:14:00 99 mm[Hg] [facility] pressure Medicine Diastolic blood 2020-11-09 15:14:00 71 mm[Hg] [facility] pressure Medicine Heart rate 2020-11-09 15:14:00 128 /min [facility] Body height 2020-11-09 15:14:00 193 cm [facility] Body weight 2020-11-09 15:14:00 76.204 kg [facility] BMI 2020-11-09 15:14:00 20.45 kg/m2 [facility] Systolic blood 2020-09-27 16:10:00 121 mm[Hg] [facility] of pressure Medicine Diastolic blood 2020-09-27 16:10:00 80 mm[Hg] [facility] of pressure Medicine Heart rate 2020-09-27 16:10:00 70 /min [facility] Body height 2020-09-27 16:10:00 193 cm [facility] Body weight 2020-09-27 16:10:00 83.915 kg [facility] BMI 2020-09-27 16:10:00 22.52 kg/m2 [facility] Systolic blood 2020-09-25 15:40:00 121 mm[Hg] [facility] pressure Medicine Diastolic blood 2020-09-25 15:40:00 85 mm[Hg] [facility] pressure Medicine Heart rate 2020-09-25 15:40:00 64 /min [facility] Body temperature 2020-09-25 15:40:00 36.22 Vaishnavi [facility] Respiratory rate 2020-09-25 15:40:00 16 /min [facility] Body height 2020-09-25 15:40:00 193 cm [facility] Body weight 2020-09-25 15:40:00 83.008 kg [facility] BMI 2020-09-25 15:40:00 22.28 kg/m2 [facility] Oxygen saturation in 2020-09-25 15:40:00 100 /min [facility] Arterial blood by [facility] Pulse oximetry HEIGHT 2020-09-08 10:50:00 193 cm WEIGHT 2020-09-08 10:50:00 83.144 kg HEIGHT 2020-09-08 10:50:00 193 cm WEIGHT 2020-09-08 10:50:00 83.144 kg Systolic blood 2019-10-12 16:12:00 177 mm[Hg] [facility] pressure Medicine Diastolic blood 2019-10-12 16:12:00 107 mm[Hg] [facility] pressure Medicine Heart rate 2019-10-12 16:12:00 58 /min [facility] Body height 2019-10-12 16:12:00 193 cm [facility] Body weight 2019-10-12 16:12:00 83.915 kg [facility] BMI 2019-10-12 16:12:00 22.52 kg/m2 [facility] Systolic blood 2019-09-21 19:28:00 139 mm[Hg] [facility] of pressure Medicine Diastolic blood 2019-09-21 19:28:00 97 mm[Hg] [facility] of pressure Medicine Heart rate 2019-09-21 19:28:00 56 /min [facility] Body height 2019-09-21 19:28:00 193 cm [facility] Body weight 2019-09-21 19:28:00 82.555 kg [facility] BMI 2019-09-21 19:28:00 22.15 kg/m2 [facility] Systolic blood 2019-08-23 18:15:00 125 mm[Hg] [facility] of pressure Medicine Diastolic blood 2019-08-23 18:15:00 86 mm[Hg] [facility] pressure Medicine Heart rate 2019-08-23 18:15:00 65 /min [facility] Body temperature 2019-08-23 18:15:00 36.5 Vaishnavi [facility] Respiratory rate 2019-08-23 18:15:00 14 /min [facility] Body height 2019-08-23 18:15:00 193 cm [facility] Body weight 2019-08-23 18:15:00 83.915 kg [facility] BMI 2019-08-23 18:15:00 22.52 kg/m2 [facility] Oxygen saturation in 2019-08-23 18:15:00 99 /min [facility] Arterial blood by [facility] Pulse oximetry Systolic blood 2019-03-04 18:59:00 155 mm[Hg] [facility] of pressure Medicine Diastolic blood 2019-03-04 18:59:00 96 mm[Hg] [facility] of pressure Medicine Heart rate 2019-03-04 18:59:00 63 /min [facility] Body height 2019-03-04 18:59:00 193 cm [facility] Body weight 2019-03-04 18:59:00 87.998 kg [facility] BMI 2019-03-04 18:59:00 23.61 kg/m2 [facility] Systolic blood 2022-03-19 18:09:00 123 mm[Hg] [facility] pressure Diastolic blood 2022-03-19 18:09:00 81 mm[Hg] [facility] pressure Heart rate 2022-03-19 18:09:00 71 /min [facility] Body height 2022-03-19 18:09:00 193 cm [facility] Body weight 2022-03-19 18:09:00 68.947 kg [facility] BMI 2022-03-19 18:09:00 18.50 kg/m2 [facility] Systolic blood 2022-03-12 09:50:00 151 mm[Hg] [facility] Diastolic blood 2022-03-12 09:50:00 80 mm[Hg] [facility] Heart rate 2022-03-12 09:50:00 62 /min [facility] Body temperature 2022-03-12 09:50:00 36.22 Vaishnav[facility] Respiratory rate 2022-03-12 09:50:00 16 /min [facility] Oxygen saturation in 2022-03-12 09:50:00 95 /min [facility] Arterial blood by [facility] Pulse oximetry Body height 2022-03-12 06:25:00 188 cm [facility] Body weight 2022-03-12 06:25:00 68.675 kg [facility] BMI 2022-03-12 06:25:00 19.44 kg/m2 [facility] Oxygen saturation in 2021-12-21 18:12:00 99 /min [facility] Arterial blood by Pulse oximetry Respiratory rate 2021-12-03 20:45:00 14 /min [facility] Body temperature 2021-12-03 18:05:00 35.83 Vaishnavi [facility] Procedures Procedure Date / Time Performing Clinician Source Performed MT BREATHING CAPACITY 2022-07-12 11:53:13 [facility] ABSOLUTE LYMPHOCYTE COUNT 2022-04-26 08:05:04 [facility] COMPREHENSIVE METABOLIC 2022-04-26 08:05:04 [employer] PANEL Medicine IMMUNOGLOBULIN PROFILE 2022-04-26 08:05:04 [facility] CBC W/AUTO DIFF WITH 2022-04-17 12:22:33 [facility] Medicine COMPREHENSIVE METABOLIC 2022-04-17 12:22:33 [facility] Medicine IMMUNOGLOBULIN PROFILE 2022-04-17 12:22:33 [facility] FL FLUORO NON-SPECIFIC UP 2022-03-12 08:50:00 ReneeAbraham riley [facility] TO [facility] CREATION, LESION, 2022-03-12 07:15:00 [facility] TRIGEMINAL GANGLION, Medical [address] ter STEREOTACTIC PROCEDURE W/ C-ARM 2022-03-12 07:15:00 [facility] TYPE AND SCREEN, 2022-03-12 06:36:00 [facility] AUTOMATED [facility] XR CHEST 2 VW 2021-12-28 20:24:00 [facility] B NATRIURETIC PEPTIDE 2021-12-28 19:53:00 [facility] COMPREHENSIVE METABOLIC 2021-12-28 19:53:00 [facility] PANEL CBC WITH PLATELET AND 2021-12-28 19:53:00 [facility] DIFFERENTIAL ESTIMATED GFR 2021-12-28 19:53:00 [facility] MRI BRAIN & ORBIT W WO 2021-12-21 19:44:31 Mohit [facility] CONTRAST Cha[place] OCT, OPTIC NERVE - OU - 2021-12-12 16:09:44 Elva Khoury [facility] BOTH EYES AUTOMATED VISUAL FIELD, 2021-12-12 16:09:39 Elva Khoury [facility] EXTENDED - OU - BOTH EYES ECG 12-LEAD 2021-12-03 18:24:26 [facility] ACTIVATED CLOTTING TIME 2021-12-03 17:25:00 Pancho [facility] EP COMPLETE EP STUDY W 2021-12-03 17:21:26 [facility] PULMONARY VEIN ACTIVATED CLOTTING TIME 2021-12-03 16:55:00 Rami, [facility] ACTIVATED CLOTTING TIME 2021-12-03 15:57:00 Rami, [facility] ACTIVATED CLOTTING TIME 2021-12-03 15:32:00 Rami, [facility] ACTIVATED CLOTTING TIME 2021-12-03 14:41:00 Rami, [facility] ACTIVATED CLOTTING TIME 2021-12-03 14:11:00 Rami, [facility] ACTIVATED CLOTTING TIME 2021-12-03 13:47:00 Rami, [facility] ACTIVATED CLOTTING TIME 2021-12-03 13:37:00 Rami, [facility] ACTIVATED CLOTTING TIME 2021-12-03 13:30:00 Ram, [facility] ARTERIAL LINE 2021-12-03 13:22:13 [facility] MT AN ELECTIVE 2021-12-03 13:04:00 [facility] ENDOTRACHEAL AIRWAY [facility] TYPE AND SCREEN 2021-12-03 11:56:00 [facility] PRE/POST OP 2021-12-03 11:23:42 [facility] PROTHROMBIN TIME WITH INR 2021-11-29 15:36:00 [facility] MAGNESIUM LEVEL 2021-11-29 15:36:00 [facility] CBC WITH PLATELET AND 2021-11-29 15:36:00 [facility] DIFFERENTIAL COMPREHENSIVE METABOLIC 2021-11-29 15:36:00 [facility] PANEL ESTIMATED GFR 2021-11-29 15:36:00 [facility] SMEAR REVIEW 2021-11-29 15:36:00 [facility] COVID-19 QUALITATIVE 2021-11-29 15:25:00 [facility] ECG PRE/POST OP 2021-10-04 11:46:05 [facility] COVID-19 QUALITATIVE 2021-10-03 21:03[facility] INR 2021-10-03 21:00:00 [facility] MAGNESIUM LEVEL 2021-10-03 21:00:00 [facility] HC COMPLETE BLD COUNT 2021-10-03 21:00:00 [facility] W/AUTO DIFF COMPREHENSIVE METABOLIC 2021-10-03 21:00:00 [facility] PANEL ESTIMATED GFR 2021-10-03 21:00:00 [facility] COVID-19 QUALITATIVE 2021-09-21 18:50:00 [facility] RT-PCR PROTHROMBIN TIME WITH INR 2021-09-21 18:50:00 [facility] MAGNESIUM LEVEL 2021-09-21 18:50:00 [facility] HC COMPLETE BLD COUNT 2021-09-21 18:50:00 [facility] W/AUTO DIFF COMPREHENSIVE METABOLIC 2021-09-21 18:50:00 [facility] PANEL ESTIMATED GFR 2021-09-21 18:50:00 [facility] ECG 12-LEAD 2021-09-18 19:50:56 Roque Burk [...] Cessation Counseling and Screening (12+)] Future Scheduled 2022-08-28 [facility]OSCOPY [facility]CRE[facility]ING [facility] 15:08:45 [code = COLONOSCOPY Hospital SCREENING] Future Scheduled 2022-08-28 SHINGLES VACCINES (1 [facility] 15:08:45 of 2) [code = Hospital SHINGLES VACCINES (1 of 2)] Future Scheduled 2022-08-28 COVID-19 VACCINE (4 - [facility] 15:08:45 Booster for Pfizer Hospital series) [code = COVID-19 VACCINE (4 - Booster for Pfizer series)] Future Scheduled 2022-08-28 INFLUENZA VACCINE [facility] Test 15:08:45 [code = INFLUENZA Hospital VACCINE] Future Scheduled 2022-08-28 65+ PNEUMOCOCCAL [facility] Test 15:08:45 VACCINE (2 - PCV) Hospital [code = 65+ PNEUMOCOCCAL VACCINE (2 - PCV)] Future Scheduled 2022-08-18 COLONOSCOPY SCREENING [facility] [...] RISK Medical C enter SCREENING] Future Scheduled 2022-07-[address] [facility] Test 00:00:00 (12+) [code = Medical Center DEPRESSION SCREENING (12+)] Future Scheduled 2022-07-28 FALLS RISK SCREENING [facility] Test 00:00:00 [code = FALLS RISK Medical C enter SCREENING] Future Scheduled 2022-07-12 Pneumococcal 65+ (1 - [employer] Test 12:10:33 PCV) [code = of Medicine Pneumococcal 65+ (1 - PCV)] Future Scheduled 2022-07-12 TETANUS SHOT (ADULT) [employer] Test 12:10:33 [code = TETANUS SHOT of Medi cine (ADULT)] Future Scheduled 2022-07-12 Hepatitis C screening [employer] Test 12:10:33 (procedure) [code = of Medic ine 520399892] Future Scheduled 2022-07-12 ZOSTER VACCINE (1 of [facility] Test 12:10:33 2) [code = ZOSTER of Medicin e VACCINE (1 of 2)] Future Scheduled 2022-07-12 Abdominal aortic [facility] Test 12:10:33 aneurysm screening of Medici ne (procedure) [code = 205262573] Future Scheduled 2022-07-12 Screening for [facility] Test 12:10:33 malignant neoplasm of of Med icine colon (procedure) [code = 383329449] Future Scheduled 2022-07-12 MEDICARE AWV [facility] [employer] Test 12:10:33 (Initial) [code = of Medicin e MEDICARE AWV (Initial)] Future Scheduled 2022-07-12 COVID-19 Vaccine (4 - [facility] Test 12:10:33 Booster for Pfizer of Medici ne series) [code = COVID-19 Vaccine (4 - Booster for Pfizer series)] Future Scheduled 2022-07-12 FLU VACCINE > 6 Postponed from [facility] Test 12:10:33 MONTHS [code = FLU 02/25/2022 of Medici ne VACCINE > 6 MONTHS] (Postpone Reason: Patient declined today) Future Scheduled 2022-07-12 BMI FOLLOW UP PLAN [facility] [employer] Test 12:10:33 [code = BMI FOLLOW UP of Med icine PLAN] Future Scheduled 2022-07-12 FALL SCREEN [code = [employer] Test 12:10:33 FALL SCREEN] of Medicine Future Scheduled 2022-07-12 MT BREATHING CAPACITY Ordered: [employer] Test 11:53:13 TEST [code = 40995] 07/12/2022 of Medic ine Future Scheduled 2022-07-12 COMPLETE PFT WITH 1 Occurrences [employer] Test 11:53:13 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 [code starting of Medi cine = 41844] 07/12/2022 until 07/12/2023 Future Scheduled 2022-04-18 Pneumococcal 65+ (1 - [facility] [employer] Test 08:17:58 PCV) [code = of Medicine Pneumococcal 65+ (1 - PCV)] Future Scheduled 2022-04-18 TETANUS SHOT (ADULT) [employer] Test 08:17:58 [code = TETANUS SHOT of Medi cine (ADULT)] Future Scheduled 2022-04-18 Hepatitis C screening [employer] Test 08:17:58 (procedure) [code = of Medic ine 995947056] Future Scheduled 2022-04-18 ZOSTER VACCINE (1 of [facility] Test 08:17:58 2) [code = ZOSTER of Medicin e VACCINE (1 of 2)] Future Scheduled 2022-04-18 Abdominal aortic [facility] Test 08:17:58 aneurysm screening of Medici ne (procedure) [code = 648383999] Future Scheduled 2022-04-18 Screening for [facility] Test 08:17:58 malignant neoplasm of of Med icine colon (procedure) [code = 485512566] Future Scheduled 2022-04-18 MEDICARE AWV [facility] [employer] Test 08:17:58 (Initial) [code = of Medicin e MEDICARE AWV (Initial)] Future Scheduled 2022-04-18 COVID-19 Vaccine (4 - [facility] Test 08:17:58 Booster for Pfizer of Medici ne series) [code = COVID-19 Vaccine (4 - Booster for Pfizer series)] Future Scheduled 2022-04-18 FLU VACCINE > 6 Postponed from [facility] Test 08:17:58 MONTHS [code = FLU 02/25/2022 of Medici ne VACCINE > 6 MONTHS] (Postpone Reason: Patient declined today) Future Scheduled 2022-04-18 BMI FOLLOW UP PLAN [employer] Test 08:17:58 [code = BMI FOLLOW UP of Med icine PLAN] Future Scheduled 2022-04-18 FALL SCREEN [code = [employer] Test 08:17:58 FALL SCREEN] of Medicine Future Scheduled 2022-04-17 CBC W/AUTO DIFF WITH Ordered: [employer] Test 12:22:33 PLATELETS [code = 04/17/2022 of Medicin e 90026-9] Future Scheduled 2022-04-17 COMPREHENSIVE Ordered: [facility] Test 12:22:33 METABOLIC PANEL [code 04/17/2022 of Med icine = 36158-5] Future Scheduled 2022-04-17 IMMUNOGLOBULIN Ordered: [facility] [employer] Test 12:22:33 PROFILE [code = 04/17/2022 of Medicine 21029-0] Future Scheduled 2022-04-16 Pneumococcal 65+ (1 - [employer] Test 19:33:28 PCV) [code = of Medicine Pneumococcal 65+ (1 - PCV)] Future Scheduled 2022-04-16 TETANUS SHOT (ADULT) [employer] Test 19:33:28 [code = TETANUS SHOT of Medi cine (ADULT)] Future Scheduled 2022-04-16 Hepatitis C screening [employer] Test 19:33:28 (procedure) [code = of Medic ine 588495290] Future Scheduled 2022-04-16 ZOSTER VACCINE (1 of [employer] Test 19:33:28 2) [code = ZOSTER of Medicin e VACCINE (1 of 2)] Future Scheduled 2022-04-16 Abdominal aortic [facility] [employer] Test 19:33:28 aneurysm screening of Medici ne (procedure) [code = 833127122] Future Scheduled 2022-04-16 Screening for [facility] Test 19:33:28 malignant neoplasm of of Med icine colon (procedure) [code = 580185521] Future Scheduled 2022-04-16 MEDICARE AWV [facility] [employer] Test 19:33:28 (Initial) [code = of Medicin e MEDICARE AWV (Initial)] Future Scheduled 2022-04-16 COVID-19 Vaccine (4 - [employer] Test 19:33:28 Booster for Pfizer of Medici ne series) [code = COVID-19 Vaccine (4 - Booster for Pfizer series)] Future Scheduled 2022-04-16 FLU VACCINE > 6 [facility] Test 19:33:28 MONTHS [code = FLU of Medici ne VACCINE > 6 MONTHS] Future Scheduled 2022-04-16 BMI FOLLOW UP PLAN [employer] Test 19:33:28 [code = BMI FOLLOW UP of Med icine PLAN] Future Scheduled 2022-04-16 FALL SCREEN [code = [employer] Test 19:33:28 FALL SCREEN] of Medicine Future Scheduled 2022-04-02 Pneumococcal 65+ (1 - [employer] Test 04:36:38 PCV) [code = of Medicine Pneumococcal 65+ (1 - PCV)] Future Scheduled 2022-04-02 TETANUS SHOT (ADULT) [employer] Test 04:36:38 [code = TETANUS SHOT of Medi cine (ADULT)] Future Scheduled 2022-04-02 Hepatitis C screening [employer] Test 04:36:38 (procedure) [code = of Medic ine 593175127] Future Scheduled 2022-04-02 ZOSTER VACCINE (1 of [facility] Test 04:36:38 2) [code = ZOSTER of Medicin e VACCINE (1 of 2)] Future Scheduled 2022-04-02 Abdominal aortic [facility] Test 04:36:38 aneurysm screening of Medici ne (procedure) [code = 276802707] Future Scheduled 2022-04-02 Screening for [facility] Test 04:36:38 malignant neoplasm of of Med icine colon (procedure) [code = 533882009] Future Scheduled 2022-04-02 MEDICARE AWV [facility] [employer] Test 04:36:38 (Initial) [code = of Medicin e MEDICARE AWV (Initial)] Future Scheduled 2022-04-02 COVID-19 Vaccine (4 - [facility] Test 04:36:38 Booster for Pfizer of Medici ne series) [code = COVID-19 Vaccine (4 - Booster for Pfizer series)] Future Scheduled 2022-04-02 FLU VACCINE > 6 [facility] Test 04:36:38 MONTHS [code = FLU of Medici ne VACCINE > 6 MONTHS] Future Scheduled 2022-04-02 BMI FOLLOW UP PLAN [facility] [facility] [employer] Test 04:36:38 [code = BMI FOLLOW UP of Med icine PLAN] Future Scheduled 2022-04-02 FALL SCREEN [code = [facility] [place] Test 04:36:38 FALL SCREEN] of Medicine Future [...] PCV)] Future Scheduled 2022-02-10 TETANUS SHOT (ADULT) [employer] Test 18:07:33 [code = TETANUS SHOT of Medi cine (ADULT)] Future Scheduled 2022-02-10 Hepatitis C screening [employer] Test 18:07:33 (procedure) [code = of Medic ine 694319092] Future Scheduled 2022-02-10 ZOSTER VACCINE (1 of [facility] Test 18:07:33 2) [code = ZOSTER of Medicin e VACCINE (1 of 2)] Future Scheduled 2022-02-10 Abdominal aortic [facility] Test 18:07:33 aneurysm screening of Medici ne (procedure) [code = 716085229] Future Scheduled 2022-02-10 Screening for [facility] Test 18:07:33 malignant neoplasm of of Med icine colon (procedure) [code = 357450592] Future Scheduled 2022-02-10 MEDICARE AWV [facility] [employer] Test 18:07:33 (Initial) [code = of Medicin e MEDICARE AWV (Initial)] Future Scheduled 2022-02-10 COVID-19 Vaccine (4 - [employer] Test 18:07:33 Booster for Pfizer of Medici ne series) [code = COVID-19 Vaccine (4 - Booster for Pfizer series)] Future Scheduled 2022-02-10 FLU VACCINE > 6 [facility] Test 18:07:33 MONTHS [code = FLU of Medici ne VACCINE > 6 MONTHS] Future Scheduled 2022-02-10 FALL SCREEN [code = [employer] Test 18:07:33 FALL SCREEN] of Medicine Future Scheduled 2022-01-14 Pneumococcal 65+ (1 - [employer] Test 07:18:27 PCV) [code = of Medicine Pneumococcal 65+ (1 - PCV)] Future Scheduled 2022-01-14 TETANUS SHOT (ADULT) [employer] Test 07:18:27 [code = TETANUS SHOT of Medi cine (ADULT)] Future Scheduled 2022-01-14 Hepatitis C screening [employer] Test 07:18:27 (procedure) [code = of Medic ine 841763558] Future Scheduled 2022-01-14 ZOSTER VACCINE (1 of [employer] Test 07:18:27 2) [code = ZOSTER of Medicin e VACCINE (1 of 2)] Future Scheduled 2022-01-14 Abdominal aortic [employer] Test 07:18:27 aneurysm screening of Medici ne (procedure) [code = 501887419] Future Scheduled 2022-01-14 Screening for [facility] Test 07:18:27 malignant neoplasm of of Med icine colon (procedure) [code = 253079536] Future Scheduled 2022-01-14 MEDICARE AWV [facility] [employer] Test 07:18:27 (Initial) [code = of Medicin e MEDICARE AWV (Initial)] Future Scheduled 2022-01-14 COVID-19 Vaccine (4 - [employer] Test 07:18:27 Booster for Pfizer of Medici ne series) [code = COVID-19 Vaccine (4 - Booster for Pfizer series)] Future Scheduled 2022-01-14 FLU VACCINE > 6 [facility] Test 07:18:27 MONTHS [code = FLU of Medici ne VACCINE > 6 MONTHS] Future Scheduled 2022-01-14 FALL SCREEN [code = [employer] Test 07:18:27 FALL SCREEN] of Medicine Future Scheduled 2021-10-16 TETANUS SHOT (ADULT) [employer] Test 07:31:08 [code = TETANUS SHOT of Medi cine (ADULT)] Future Scheduled 2021-10-16 Hepatitis C screening [employer] Test 07:31:08 (procedure) [code = of Medic ine 768831979] Future Scheduled 2021-10-16 ZOSTER VACCINE (1 of [employer] Test 07:31:08 2) [code = ZOSTER of Medicin e VACCINE (1 of 2)] Future Scheduled 2021-10-16 Abdominal aortic [employer] Test 07:31:08 aneurysm screening of Medici ne (procedure) [code = 138860385] Future Scheduled 2021-10-16 Pneumococcal 65+ (1 [employer] Test 07:31:08 of 1 - PPSV23) [code of Medi cine = Pneumococcal 65+ (1 of 1 - PPSV23)] Future Scheduled 2021-10-16 Screening for [facility] Test 07:31:08 malignant neoplasm of of Med icine colon (procedure) [code = 333314834] Future Scheduled 2021-10-16 MEDICARE AWV [facility] [employer] Test 07:31:08 (Initial) [code = of Medicin e MEDICARE AWV (Initial)] Future Scheduled 2021-10-16 MEDICARE IPPE [facility] Test 07:31:08 (WELCOME TO MEDICARE) of Med icine [code = MEDICARE IPPE (WELCOME TO MEDICARE)] Future Scheduled 2021-10-16 COVID-19 Vaccine (3 - [employer] Test 07:31:08 Booster for Pfizer of Medici ne series) [code = COVID-19 Vaccine (3 - Booster for Pfizer series)] Future Scheduled 2021-10-16 FLU VACCINE > 6 [facility] Test 07:31:08 MONTHS [code = [...] series)] Future Scheduled 2021-04-16 TETANUS SHOT (ADULT) [employer] Test 10:09:56 [code = TETANUS SHOT of Medi cine (ADULT)] Future Scheduled 2021-04-16 Hepatitis C screening [employer] Test 10:09:56 (procedure) [code = of Medic ine 537936688] Future Scheduled 2021-04-16 ZOSTER VACCINE (1 of [facility] Test 10:09:56 2) [code = ZOSTER of Medicin e VACCINE (1 of 2)] Future Scheduled 2021-04-16 Abdominal aortic [facility] Test 10:09:56 aneurysm screening of Medici ne (procedure) [code = 820034782] Future Scheduled 2021-04-16 PNEUMOVAX >=65 [facility] [employer] Test 10:09:56 (PPSV23) [code = of Medicine PNEUMOVAX >=65 (PPSV23)] Future Scheduled 2021-04-16 Screening for [facility] Test 10:09:56 malignant neoplasm of of Med icine colon (procedure) [code = 178100075] Future Scheduled 2021-04-16 FLU VACCINE > 6 [facility] Test 10:09:56 MONTHS [code = FLU of Medici ne VACCINE > 6 MONTHS] Future Scheduled 2021-04-16 FALL SCREEN [code = [facility] Test 10:09:56 FALL SCREEN] of Medicine Future Scheduled 2021-04-16 TETANUS SHOT (ADULT) [facility] Test 10:09:56 [code = TETANUS SHOT of Medi cine (ADULT)] Future Scheduled 2021-04-16 Hepatitis C screening [facility] Test 10:09:56 (procedure) [code = of Medic ine 563899034] Future Scheduled 2021-04-16 ZOSTER VACCINE (1 of [facility] Test 10:09:56 2) [code = ZOSTER of Medicin e VACCINE (1 of 2)] Future Scheduled 2021-04-16 Abdominal aortic [facility] Test 10:09:56 aneurysm screening of Medici ne (procedure) [code = 755286384] Future Scheduled 2021-04-16 PNEUMOVAX >=65 [facility] Test 10:09:56 (PPSV23) [code = of Medicine PNEUMOVAX >=65 (PPSV23)] Future Scheduled 2021-04-16 Screening for [facility] Test 10:09:56 malignant neoplasm of of Med icine colon (procedure) [code = 527561431] Future Scheduled 2021-04-16 FLU VACCINE > 6 [facility] Test 10:09:56 MONTHS [code = FLU of Medici ne VACCINE > 6 MONTHS] Future Scheduled 2021-04-16 FALL SCREEN [code = [employer] Test 10:09:56 FALL SCREEN] of Medicine Future Scheduled 2020-12-21 TETANUS SHOT (ADULT) [facility] Test 13:03:52 [code = TETANUS SHOT of Medi cine (ADULT)] Future Scheduled 2020-12-21 Hepatitis C screening [facility] Test 13:03:52 (procedure) [code = of Medic ine 258422902] Future Scheduled 2020-12-21 ZOSTER VACCINE (1 of [facility] Test 13:03:52 2) [code = ZOSTER of Medicin e VACCINE (1 of 2)] Future Scheduled 2020-12-21 Abdominal aortic [facility] Test 13:03:52 aneurysm screening of Medici ne (procedure) [code = 987829036] Future Scheduled 2020-12-21 PNEUMOVAX >=65 [facility] Test 13:03:52 (PPSV23) [code = of Medicine PNEUMOVAX >=65 (PPSV23)] Future Scheduled 2020-12-21 Screening for [facility] Test 13:03:52 malignant neoplasm of of Med icine colon (procedure) [code = 682112078] Future Scheduled 2020-12-21 FLU VACCINE > 6 [facility] Test 13:03:52 MONTHS [code = [...] screening Medical C enter (procedure) [code = 412776523] Future Scheduled 2011-11-17 PNEUMOCOCCAL 65+ YRS [facility] Test 00:00:00 (1 - PCV) [code = Medical Ce nter PNEUMOCOCCAL 65+ YRS (1 - PCV)] Future Scheduled 2011-11-[address] [facility] Test 00:00:00 aneurysm screening Medical C enter (procedure) [code = 157506891] Future Scheduled 2011-11-17 PNEUMOCOCCAL 65+ YRS [facility] Test 00:00:00 (1 - PCV) [code = Medical Ce nter PNEUMOCOCCAL 65+ YRS (1 - PCV)] Future Scheduled 2011-11-[address] [facility] Test 00:00:00 aneurysm screening Medical C enter (procedure) [code = 808576887] Future Scheduled 2011-11-17 PNEUMOCOCCAL 65+ YRS [facility] [...] [facility] Center colon (procedure) [code = 854646269] Future Scheduled [address] [facility] 00[facility]00 malignant neoplasm of [facility]ica [facility] Center colon (procedure) [code = 271513904] Future Scheduled [address] [facility] Test 00:00:00 malignant neoplasm of Medica l Center colon (procedure) [code = 682173890] Future Scheduled [address] [facility] Test 00:00:00 malignant neoplasm of Medica l Center colon (procedure) [code = 958682654] Future Scheduled 1946 Sigmoidoscopy [facility] Future Scheduled [address] [facility] Test 00:00:00 malignant neoplasm of Medica l Center colon (procedure) [code = 286223014] Future Scheduled [address] [facility] Test 00:00:00 malignant neoplasm of Medica l Center colon (procedure) [code = 463886083] Future Scheduled [address] [facility] Test 00:00:00 malignant neoplasm of Medica l Center colon (procedure) [code = 659112621] Future Scheduled [address] [facility] Test 00:00:00 malignant neoplasm of Medica l Center colon (procedure) [code = 233123896] Future Scheduled 1946 S[facility]oid[facility] [address] [facility] 00:00:00 (combo) [code = CT Medical C enter Colonography (combo)] Future Scheduled [address] [facility] Test 00:00:00 malignant neoplasm of Medica l Center colon (procedure) [code = 615516091] Future Scheduled [address] [facility] Test 00:00:00 malignant neoplasm of Medica l Center colon (procedure) [code = 330394624] Future Scheduled [address] [facility] Test 00:00:00 malignant neoplasm of Medica l Center colon (procedure) [code = 663084593] Future Scheduled [address] [facility] Test 00:00:00 malignant neoplasm of Medica l Center colon (procedure) [code = 573595533] Future Scheduled 1946 S[facility] [address] [facility] 00:00:00 (combo) [code = CT Medical C enter Colonography (combo)] Future Scheduled TETANUS SHOT (ADULT) [employer] Test [code = TETANUS SHOT of Medi cine (ADULT)] Future Scheduled HEPATITIS C SCREENING [employer] Test [code = HEPATITIS C of Medic ine SCREENING] Future Scheduled MEDICARE AWV [facility] [employer] Test (Initial) [code = of Medicin e MEDICARE AWV (Initial)] Future Scheduled AAA Screen [code = [facility] [place] [facility] AAA Screen] of Medicine Future Scheduled FALL SCREEN [code = [facility] [place] Test FALL SCREEN] of Medicine Future Scheduled PNEUMOVAX >=65 [facility] Test (PPSV23) [code = of Medicine PNEUMOVAX >=65 (PPSV23)] Future Scheduled PREVNAR >= 65 (PCV13) [employer] Test [code = PREVNAR >= 65 of Med icine (PCV13)] Future Scheduled COLON CANCER [facility] Rosanne [employer] Test SCREENING: of Medicine COLONOSCOPY [code = COLON CANCER SCREENING: COLONOSCOPY] Future Scheduled FLU VACCINE > 6 [facility] Test MONTHS [code = FLU of Medici ne VACCINE > 6 MONTHS] Future Scheduled ABSOLUTE LYMPHOCYTE Ordered: [employer] COUNT [code = NOCPT] 09/21/2019 of Medi cine Future Scheduled COMPREHENSIVE Ordered: [facility] Test METABOLIC PANEL [code 09/21/2019 of Med icine = 49428-1] Future Scheduled IMMUNOGLOBULIN [facility] [employer] Test PROFILE [code = of Medicine 19959-5] Future Scheduled TETANUS SHOT (ADULT) [employer] [facility] [code = TETANUS SHOT of Medi cine (ADULT)] Future Scheduled HEPATITIS C SCREENING [employer] [facility] [code = HEPATITIS C of Medic ine SCREENING] Future Scheduled MEDICARE AWV [facility] [employer] Test (Initial) [code = of Medicin e MEDICARE AWV (Initial)] Future Scheduled AAA Screen [code = [employer] AAA Screen] of Medicine Future Scheduled FALL SCREEN [code = [employer] FALL SCREEN] of Medicine Future Scheduled PNEUMOVAX >=65 [facility] [employer] Test (PPSV23) [code = of Medicine PNEUMOVAX >=65 (PPSV23)] Future Scheduled PREVNAR >= 65 (PCV13) [employer] [facility] [code = PREVNAR >= 65 of Med icine (PCV13)] Future Scheduled COLON CANCER [facility]anne [employer] Test SCREENING: of Medicine COLONOSCOPY [code = COLON CANCER SCREENING: COLONOSCOPY] Future Scheduled FLU VACCINE > 6 [facility] [employer] Test MONTHS [code = FLU of Medici ne VACCINE > 6 MONTHS] Future Scheduled URINALYSIS AUTO Ordered: [facility] [employer] Test W/SCOPE [code = 10/12/2019 of Medicine 15637-6] Future Scheduled TETANUS SHOT (ADULT) [employer] Test [code = TETANUS SHOT of Medi cine (ADULT)] Future Scheduled HEPATITIS C SCREENING [employer] [facility] [code = HEPATITIS C of Medic ine SCREENING] Future Scheduled MEDICARE AWV [facility] Test (Initial) [code = of Medicin e MEDICARE AWV (Initial)] Future Scheduled AAA Screen [code = [employer] AAA Screen] of Medicine Future Scheduled FALL SCREEN [code = [employer] FALL SCREEN] of Medicine Future Scheduled PNEUMOVAX >=65 [facility] [employer] Test (PPSV23) [code = of Medicine PNEUMOVAX >=65 (PPSV23)] Future Scheduled PREVNAR >= 65 (PCV13) [employer] [facility] [code = PREVNAR >= 65 of Med icine (PCV13)] Future Scheduled COLON CANCER [facility] [employer] Test SCREENING: of Medicine COLONOSCOPY [code = COLON CANCER SCREENING: COLONOSCOPY] Future Scheduled FLU VACCINE > 6 [facility] [employer] Test MONTHS [code = FLU of Medici ne VACCINE > 6 MONTHS] Future Scheduled TETANUS SHOT (ADULT) [employer] Test [code = TETANUS SHOT of Medi cine (ADULT)] Future Scheduled HEPATITIS C SCREENING [employer] [facility] [code = HEPATITIS C of Medic ine SCREENING] Future Scheduled ZOSTER VACCINE (1 of [employer] Test 2) [code = ZOSTER of Medicin e VACCINE (1 of 2)] Future Scheduled AAA Screen [code = [employer] AAA Screen] of Medicine Future Scheduled PNEUMOVAX >=65 [facility] [employer] Test (PPSV23) [code = of Medicine PNEUMOVAX >=65 (PPSV23)] Future Scheduled COLON CANCER [facility] [employer] Test SCREENING: of Medicine COLONOSCOPY [code = COLON CANCER SCREENING: COLONOSCOPY] Future Scheduled MEDICARE AWV [facility] [employer] Test (Initial) [code = of Medicin e MEDICARE AWV (Initial)] Future Scheduled FLU VACCINE > 6 [facility] [employer] Test MONTHS [code = FLU of Medici ne VACCINE > 6 MONTHS] Future Scheduled FALL SCREEN [code = [employer] FALL SCREEN] of Medicine Future Scheduled ABSOLUTE LYMPHOCYTE Ordered: [employer] COUNT [code = NOCPT] 09/27/2020 of Medi cine Future Scheduled COMPREHENSIVE Ordered: [facility] Test METABOLIC PANEL [code 09/27/2020 of Med icine = 12491-9] Future Scheduled IMMUNOGLOBULIN Ordered: [facility] [employer] Test PROFILE [code = 09/27/2020 of Medicine 46821-8] Future Scheduled TETANUS SHOT (ADULT) [employer] Test [code = TETANUS SHOT of Medi cine (ADULT)] Future Scheduled HEPATITIS C SCREENING [employer] [facility] [code = HEPATITIS C of Medic ine SCREENING] Future Scheduled ZOSTER VACCINE (1 of [employer] Test 2) [code = ZOSTER of Medicin e VACCINE (1 of 2)] Future Scheduled AAA Screen [code = [employer] AAA Screen] of Medicine Future Scheduled PNEUMOVAX >=65 [employer] Test (PPSV23) [code = of Medicine PNEUMOVAX >=65 (PPSV23)] Future Scheduled COLON CANCER [facility] Rosanne [employer] Test SCREENING: of Medicine COLONOSCOPY [code = COLON CANCER SCREENING: COLONOSCOPY] Future Scheduled MEDICARE AWV [facility] Test (Initial) [code = of Medicin e MEDICARE AWV (Initial)] Future Scheduled FLU VACCINE > 6 [facility] [employer] Test MONTHS [code = FLU of Medici ne VACCINE > 6 MONTHS] Future Scheduled FALL SCREEN [code = [employer] FALL SCREEN] of Medicine Future Scheduled TETANUS SHOT (ADULT) [employer] Test [code = TETANUS SHOT of Medi cine (ADULT)] Future Scheduled Hepatitis C screening [employer] [facility] (procedure) [code = of Medic ine 266128368] Future Scheduled ZOSTER VACCINE (1 of [employer] Test 2) [code = ZOSTER of Medicin e VACCINE (1 of 2)] Future Scheduled Abdominal aortic [facility] Test aneurysm screening of Medici ne (procedure) [code = 682268405] Future Scheduled PNEUMOVAX >=65 [facility] [employer] Test (PPSV23) [code = of Medicine PNEUMOVAX >=65 (PPSV23)] Future Scheduled Screening for [facility] Test malignant neoplasm of of Med icine colon (procedure) [code = 025992929] Future Scheduled FLU VACCINE > 6 [facility] [employer] Test MONTHS [code = FLU of Medici ne VACCINE > 6 MONTHS] Future Scheduled FALL SCREEN [code = [employer] FALL SCREEN] of Medicine Future Scheduled IMMUNOGLOBULIN Ordered: [facility] llege Test PROFILE [code = 03/04/2019 of Medicine 94040-1] Future Scheduled MEDICARE AWV [code = [employer] MEDICARE AWV] of Medicine Future Scheduled TETANUS SHOT (ADULT) [employer] Test [code = TETANUS SHOT of Medi cine (ADULT)] Future Scheduled HEPATITIS C SCREENING [employer] [facility] [code = HEPATITIS C of Medic ine SCREENING] Future Scheduled AAA Screen [code = [facility] [employer] [facility] AAA Screen] of Medicine Future Scheduled PNEUMOVAX >=65 [facility] [employer] Test (PPSV23) [code = of Medicine PNEUMOVAX >=65 (PPSV23)] Future Scheduled PREVNAR >= 65 (PCV13) [employer] [facility] [code = PREVNAR >= 65 of Med icine (PCV13)] Future Scheduled COLON CANCER [facility] Rosanne [employer] Test SCREENING: of Medicine COLONOSCOPY [code = COLON CANCER SCREENING: COLONOSCOPY] Future Scheduled FLU VACCINE > 6 [facility] [employer] Test MONTHS [code = FLU of Medici ne VACCINE > 6 MONTHS] Future Scheduled FALL SCREEN [code = [employer] FALL SCREEN] of Medicine Future Scheduled CULTURE, 2 Occurrences [facility] Test URINE/SENSITIVITY ON starting of Medi cine ALL [code = 74426-1] 10/12/2019 until 10/11/2020 Future Scheduled US RENAL BILATERAL 1 Occurrences [employer] [facility] [code = 99198] starting of Medicine 10/12/2019 until 10/11/2020 Future Scheduled VIDEO URODYNAMICS 1 Occurrences [employer] [code = 49795] starting of Medicine 10/12/2019 until 10/11/2020 Encounters Start End Encounter Admission Attending Care Care Encounter Source Date/Time Date/Time Type Type Clinicians Facility Department ID 2022-02-10 Outpatient [facility] [id number] Common 08:58:00 [facility] 2021-10-04 Outpatient [facility] [id number] Common 14:22:01 [facility] 2021-08-22 Outpatient [facility] [id number] Common 14:32:14 [facility] 2021-05-05 Outpatient [facility] Surgery [id number] [facility] 19:55:29 , [facility] 2021-05-05 Outpatient [facility] Surgery [id number] [facility] 03:19:02 , [facility] 2022-07-16 2022-07-16 Office Pedro Slade.2.840.1 [id number] Methodi 14:00:00 15:05:56 Visit Sp Chinchilla 31998.1.[address] 3.430.2.7 Hospit a .3.153358 l .8 2022-07-16 2022-07-16 Office Kaleb Slade2.840.1 [id number] Methodi 14:00:00 15:05:56 Visit Sp Walton50.1.[address] 3.430.2.7 Hospit a .3.407835 l .8 2022-07-12 2022-07-12 Office SILVINO WALKER 1.2.840.114 10 [id number] [facility] 11:02:27 13:25:19 Visit AMBULATOR 350.1.13.21 College Y 0.2.7.2.686 of 583.7735591 Medi geno 315 e 2022-05-03 2022-05-03 Refill Burk, 1.2.840.1 [id number] Methodi 00:00:00 00:00:[address] Ro[address] 50941.1.[address] 3.430.2.7 Hospit a .3.314087 l .8 2022-05-03 2022-05-03 Refill Bhargavi, 1.2.840.1 [id number] 8704 Methodi 00:00:00 00:00:[address] Ro[address] 3.430.2.7 Hospit a .3.232644 l .8 2022-05-01 2022-05-01 Outpatient Goldfarb_D [facility] [address] [place] [address] 00:00:00 00:00:00 [facility] 2022-04-26 2022-04-26 Outpatient [facility] [id number] [facility] 07:27:27 23:59:00 Ilan 2022-04-25 2022-04-25 Outpatient Goldfarb_D [facility] [id number] [facility] 00:00:00 00:00:00 ro Urology 2022-04-24 2022-04-24 Outpatient Goldfarb_D [facility] [address] [place] [address] 00:00:00 00:00:00 22088 [facility] 2022-04-24 2022-04-24 [facility] [place] - [id number] Lucila mills 00:00:00 00:00:00 Tianna Medel: 6560 Urology JOHANNE Hill [address], [place] [address] , Ph. 2022-04-21 2022-04-21 Outpatient Goldfarb_D U [facility] [address] [place] [address] 00:00:00 00:00:00 81476 [facility] 2022-04-17 2022-04-17 Office PHONG Lim 1.2.840.114 [id number] [facility] 11:00:00 12:29:21 Visit Polina Baptiste AMBULATOR 350.1.13.21 College Y 0.2.7.2.686 of 605.1888919 Medi geno 830 e 2022-04-12 2022-04-12 Office PHONG Valdez 1.2.840.114 [id number] [facility] 13:20:00 13:30:00 Visit Tanner AMBULATOR 350.1.13.21 College P Y 0.2.7.2.686 of 811.8266162 Medi geno 300 e 2022-03-25 2022-03-25 Office Renee LIZETHCristian 1.2.840.114 [id number] [facility] 09:20:00 15:18:19 Visit , Anette AMBULATOR 350.1.13.21 College Y 0.2.7.2.686 of 020.5985965 Medi geno 300 e 2022-03-19 2022-03-19 Office Bhargavi, 1.2.840.1 [id number] 6275 Methodi 13:30:00 15:40:38 Visit Roque Mills 03415.1.[address] 3.430.2.7 Hospit a .3.600658 l .8 2022-03-19 2022-03-19 Office Bhargavi, 1.2.840.1 [id number] Methodi 13:30:00 15:40:38 Visit Roque Mills 00748.1.[address] 3.430.2.7 Hospit a .3.939407 l .8 2022-03-19 2022-03-19 Travel 1.2.840.1 1.2.294.339 0806 399342 Methodi 00:00:00 00:00:[address] 3.430.2.7 0.2.7.3.698 Ho spita .3.232477 084.8 l .8 2022-03-19 2022-03-19 Travel 1.2.840.1 1.2.823.800 1707 512506 Methodi 00:00:00 00:00:[address] 3.430.2.7 0.2.7.3.698 Ho spita .3.145911 084.8 l .8 2022-03-14 2022-03-14 Outpatient Goldfarb_D [facility] 4755 [id number] [place] 00:00:00 00:00:00 39339 ro Urology 2022-03-14 2022-03-14 Yumiko [facility] [place] - [id number] [facility] 00:00:00 00:00:00 Tianna Medel y MD: 6560 Urology JOHANNE Hill [facility]0 [facility] [address], [place] [address] , Ph. 2022-03-14 2022-03-14 Outpatient Tressa [facility] 3dfe7 [id number] 00:00:00 00:00:00 Yumiko Vazquez [id number] 2022-03-12 2022-03-12 [facility] [id number] [id number] [facility] 06:06:00 10:33:00 Encounter , [facility] 2022-03-12 2022-03-12 [facility] [id number] [id number] [facility] [address] 06:06:00 10:33:00 Encounter , [facility] 2022-03-12 2022-03-12 Outpatient [facility] Surgery [id number] SLE 06:06:00 10:33:00 , [facility] 2022-03-12 2022-03-12 Surgery [facility] [id number] 07:30:00 09:05:00 , [facility] 2022-03-12 2022-03-12 Surgery [facility] [id number] 07:30:00 09:05:00 , [facility] 2022-03-12 2022-03-[address] [facility] [id number] [facility] 07:30:00 08:48:[address] [facility] 2022-03-12 2022-03-[address] [facility] [id number] [facility] 07:30:00 08:48:[address] [facility] 2022-03-12 2022-03-[address] [facility] [id number] [facility]00 [facility] 2022-03-12 2022-03-[address] [facility] [id number] [facility] 00[facility]00 [facility] 2022-03-11 2022-03-11 [facility] [id number] [facility] 00:00:00 00:00:00 Only [facility] 2022-03-11 2022-03-11 [facility] [id number] [facility] 00:00[facility]00 00:00:00 Only [facility] 2022-03-10 2022-03-10 Outpatient Goldfarb_D [facility] [address] [place] [address] 00:00:00 00:00:00 37978 [facility] 2022-03-05 2022-03-05 Telephone Pedro Burk.2.840.1 [id number] Methodalmita 00:00:00 00:00:[address] Ro[address]40[address] 3.430.2.7 Hospit a .3.567802 l .8 2022-03-05 2022-03-05 Telephone Kaleb Burk2.840.1 [id number] 2100 [id number] Methodalmita 00:00:00 00:00:[address] Ro[address]21.1.[address] 3.430.2.7 Hospit a .3.067152 l .8 2022-02-28 2022-02-28 Outpatient [facility] [id number] [facility] 12:03:22 23:59:00 2022-02-28 2022-02-28 [facility] [id number] 10:30:00 23:59:00 Encounter [facility] 2022-02-28 2022-02-28 [facility] [id number] 10:30:00 23:59:00 Encounter [facility] 2022-02-28 2022-02-[address] [facility] [id number] [facility] 00[facility]00 [facility] 2022-02-28 2022-02-[address] [facility] [id number] [facility] 00[facility]00 [facility] 2022-02-04 2022-02-04 Office RENEE LIZETH 1.2.840.114 [id number] [facility] 09:03:26 14:18:27 Visit ANETTE AMBULATOR 350.1.13.21 College Y 0.2.7.2.686 of 806.3317411 [facility] geno 300 e 2022-01-17 2022-01-17 Outpatient Goldfarb_D [facility] [address] [place] [address] 05:28:00 05:28:00 23819 [facility] 2022-01-11 2022-01-11 Office CARINA LIZETH 1.2.840.114 [id number] [facility] 08:38:46 11:30:52 Visit POLINA AMBULATOR 350.1.13.21 College Y 0.2.7.2.686 of 362.5856666 [facility] geno 830 e 2021-12-28 2021-12-28 [facility] Hosea Deleon 1.2.840.1 [id number] 2 [id number] Methodi 15:12:45 23:59:00 Encounter Lucius 65912.1.[address] 3.430.2.7 Hospit a .3.587687 l .8 2021-12-28 2021-12-28 [facility] Hosea Deleon 1.2.840.1 [id number] 2 [id number] Methodi 15:12:45 23:59:00 Encounter Lucius 14797.1.[address] 3.430.2.7 Hospit a .3.760612 l .8 2021-12-28 2021-12-28 [facility] RamHosea recio 1.2.840.1 [id number] 21 [id number] Methodi 14:20:00 14:25:[address] 3.430.2.7 Hospit a .3.465252 l .8 2021-12-28 2021-12-28 [facility] Ramalmita Hosea 1.2.840.1 [id number] Methodi 14:20:00 14:25:[address] 3.430.2.7 Hospit a .3.082622 l .8 2021-12-28 2021-12-28 [facility] Hosea Deleon 1.2.840.1 [id number] Methodi 00:00:00 00:00:00 Orders Lucius 36371.1.[address] 3.430.2.7 Hospit a .3.522761 l .8 2021-12-28 2021-12-28 Travel 1.2.840.1 1.2.319.405 0006 769982 Methodi 00:00:00 00:00:[address] 3.430.2.7 0.2.7.3.698 Ho spita .3.858554 084.8 l .8 2021-12-28 2021-12-28 Travel 1.2.840.1 1.2.683.968 7208 960589 Methodi 00:00:00 00:00:[address] 3.430.2.7 0.2.7.3.698 Ho spita .3.984205 084.8 l .8 2021-12-28 2021-12-28 [facility] Hosea Deleon 1.2.840.1 [id number] Methodi 00:00:00 00:00:00 Orders Lucius 32532.1.[address] 3.430.2.7 Hospit a .3.074672 l .8 2021-12-21 2021-12-21 [facility] Elva Khoury 1.2.840.1 [id number] 2 [id number] Methodi 12:21:50 23:59:00 Encounter Go 57747.1.[address] 3.430.2.7 Hospit a .3.745539 l .8 2021-12-21 [facility] [id number] 2 [id number] Methodi 12:21:50 23:59:00 Encounter Go 65820.1.[address] 3.430.2.7 Hospit a .3.916342 l .8 2021-12-21 2021-12-21 Travel 1.2.840.1 1.2.599.087 4426 [id number] Methodi 00:00:00 00:00:[address] 3.430.2.7 0.2.7.3.698 Ho spita .3.878222 084.8 l .8 2021-12-21 2021-12-21 Travel 1.2.840.1 1.2.580.911 0593 734743 Methodi 00:00:00 00:00:[address] 3.430.2.7 0.2.7.3.698 Ho spita .3.794667 084.8 l .8 2021-12-14 2021-12-14 Travel 1.2.840.1 1.2.603.243 7502 330796 Methodi 00:00:00 00:00:[address] 3.430.2.7 0.2.7.3.698 Ho spita .3.415148 084.8 l .8 2021-12-14 2021-12-14 Travel 1.2.840.1 1.2.260.316 7261 525821 Methodi 00:00:00 00:00:[address] 3.430.2.7 0.2.7.3.698 Ho spita .3.851910 084.8 l .8 2021-12-12 2021-12-12 Office Elva Khoury 1.2.840.1 [id number] 21 [id number] Methodi 10:00:00 12:20:42 Visit Go 17902.1.[address] 3.430.2.7 Hospit a .3.745626 l .8 2021-12-12 2021-12-12 Office Elva Khoury 1.2.840.1 [id number] 21 [id number] Methodi 10:00:00 12:20:42 Visit Go 32393.1.[address] 3.430.2.7 Hospit a .3.842977 l .8 2021-12-12 2021-12-12 Travel 1.2.840.1 1.2.378.191 5483 [id number] Methodi 00:00:00 00:00:[address] 3.430.2.7 0.2.7.3.698 Ho spita .3.055415 084.8 l .8 2021-12-12 2021-12-12 Travel 1.2.840.1 1.2.134.123 8183 067674 Methodi 00:00:00 00:00:[address] 3.430.2.7 0.2.7.3.698 Ho spita .3.782316 084.8 l .8 2021-12-03 2021-12-03 [facility] 1.2.840.1 [id number] 2 [id number] Methodi 06:01:00 16:02:00 Encounter Lucius 20265.1.[address] 3.430.2.7 Hospit a .3.159490 l .8 2021-12-03 2021-12-03 [facility] 1.2.840.1 [id number] 2 [id number] Methodi 06:01:00 16:02:00 Encounter Lucius 90793.1.[address] 3.430.2.7 Hospit a .3.876271 l .8 2021-12-03 2021-12-03 Anesthesia Karly Morrison Alondra 1.2.840.1 1040 68986 [id number] Methodi 07:52:00 13:06:00 Event Pancho Salazar 42303.1.[address] 3.430.2.7 Hospit a .3.621822 l .8 2021-12-03 2021-12-03 Anesthesia Karly Morrison Alondra 1.2.840.1 1040 40421 [id number] Methodi 07:52:00 13:06:00 Event Pancho Salazar 79412.1.[address] 3.430.2.7 Hospit a .3.710412 l .8 2021-12-03 2021-12-03 Surgery Ramalmita, Hosea 1.2.840.1 [id number] 21 [id number] Methodi 07:30:00 11:45:[address] 3.430.2.7 Hospit a .3.240016 l .8 2021-12-03 2021-12-03 Surgery Rami, Hosea 1.2.840.1 [id number] 21 [id number] Methodi 07:30:00 11:45:[address] 3.430.2.7 Hospit a .3.764658 l .8 2021-11-29 2021-11-29 Lab Pancho Hosea 1.2.840.1 [id number] 21 [id number] Methodi 10:30:00 10:45:[address] 3.430.2.7 Hospit a .3.731184 l .8 2021-11-29 2021-11-29 Lab Ramalmita, Hosea 1.2.840.1 [id number] 21 [id number] Methodi 10:30:00 10:45:[address] 3.430.2.7 Hospit a .3.565456 l .8 2021-11-29 2021-11-29 Travel 1.2.840.1 1.2.446.927 2346 565897 Methodi 00:00:00 00:00:[address] 3.430.2.7 0.2.7.3.698 Ho spita .3.989749 084.8 l .8 2021-11-29 2021-11-29 Travel 1.2.840.1 1.2.295.140 6068 878118 Methodi 00:00:00 00:00:[address] 3.430.2.7 0.2.7.3.698 Ho spita .3.787900 084.8 l .8 2021-10-26 2021-10-26 [facility] Hosea Deleon 1.2.840.1 [id number] Methodi 00:00:00 00:00:00 Orders Lucius 38093.1.[address] 3.430.2.7 Hospit a .3.689352 l .8 2021-10-26 2021-10-26 [facility] Hosea Deleon 1.2.840.1 [id number] Methodi 00:00:00 00:00:00 Orders Lucius 95485.1.[address] 3.430.2.7 Hospit a .3.805943 l .8 2021-10-25 2021-10-25 Outpatient [facility] [id number] [facility] 07:29:15 23:59:00 Rolo e 2021-10-15 2021-10-15 Office PHONG Lim 1.2.840.114 [id number] [facility] 10:30:00 11:30:50 Visit Polina Baptiste AMBULATOR 350.1.13.21 College Y 0.2.7.2.686 of 307.4121856 [facility] 830 e 2021-10-15 2021-10-15 Telephone Elva Khoury 1.2.840.1 [id number] Methodi 00:00:00 00:00:[address] 3.430.2.7 Hospit a .3.263452 l .8 2021-10-15 2021-10-15 Telephone Elva Khoury 1.2.840.1 [id number] Methodi 00:00:00 00:00:[address] 3.430.2.7 Hospit a .3.003665 l .8 2021-10-04 2021-10-04 Surgery [facility] 1.2.840.1 [id number] 21 [id number] Methodi 07:30:00 08:30:[address] 3.430.2.7 Hospit a .3.488951 l .8 2021-10-04 2021-10-04 [facility] 1.2.840.1 [id number] Methodi 07:30:00 08:30:[address] 3.430.2.7 Hospit a .3.773242 l .8 2021-10-04 2021-10-04 [facility] 1.2.840.1 [id number] 2 [id number] Methodi 05:20:00 08:25:00 Encounter Lucius 69535.1.[address] 3.430.2.7 Hospit a .3.636200 l .8 2021-10-04 2021-10-04 [facility] 1.2.840.1 [id number] 2 [id number] Methodi 05:20:00 08:25:00 Encounter Lucius [address]84.1.[address] 3.430.2.7 Hospit a .3.982423 l .8 2021-10-04 2021-10-04 Anesthesia Soto, 1.2.840.1 [id number] 21 [id number] Methodi 07:30:00 07:30:00 Event Tori 46278.1.[address] 3.430.2.7 Hospit a .3.555290 l .8 2021-10-04 2021-10-04 Anesthesia [place], 1.2.840.1 [id number] 21 [id number] Methodi 07:30:00 07:30:00 Event Tori 59342.1.[address] 3.430.2.7 Hospit a .3.142754 l .8 2021-10-03 2021-10-03 Lab RamiHosea 1.2.840.1 [id number] Methodi 14:30:00 14:45:[address] 3.430.2.7 Hospit a .3.017780 l .8 2021-10-03 2021-10-03 Lab Ramalmita Hosea 1.2.840.1 [id number] Methodi 14:30:00 14:45:[address] 3.430.2.7 Hospit a .3.710902 l .8 2021-10-03 2021-10-03 Travel 1.2.840.1 1.2.438.315 9558 363137 Methodi 00:00:00 00:00:[address] 3.430.2.7 0.2.7.3.698 Ho spita .3.218504 084.8 l .8 2021-10-03 2021-10-03 [facility] Rami, Hosea 1.2.840.1 [id number] Methodi 00:00:00 00:00:00 Orders Lucius 02889.1.[address] 3.430.2.7 Hospit a .3.928477 l .8 2021-10-03 2021-10-03 Travel 1.2.840.1 1.2.153.837 9235 [id number] Methodi 00:00:00 00:00:[address] 3.430.2.7 0.2.7.3.698 Ho spita .3.760169 084.8 l .8 2021-10-03 2021-10-03 [facility] Rami, Hosea 1.2.840.1 [id number] Methodi 00:00:00 00:00:00 Orders Lucius 00484.1.[address] 3.430.2.7 Hospit a .3.863661 l .8 2021-09-24 2021-09-24 Surgery Hosea Deleon 1.2.840.1 [id number] 21 [id number] Methodi 13:05:00 14:35:[address] 3.430.2.7 Hospit a .3.363440 l .8 2021-09-24 2021-09-24 [facility] 1.2.840.1 [id number] 21 [id number] Methodi 13:05:00 14:35:[address] 3.430.2.7 Hospit a .3.632798 l .8 2021-09-24 2021[facility] [id number] 2 [id number] Methodi 13:05:00 13:05:00 Encounter Lucius 10770.1.[address] 3.430.2.7 Hospit a .3.692000 l .8 2021-09-24 2021-09-[facility] 1.2.840.1 [id number] 2 [id number] Methodi 13:05:00 13:05:00 Encounter Lucius 44665.1.[address] 3.430.2.7 Hospit a .3.102946 l .8 2021-09-21 2021-09-21 [place] [facility] Mar[facility]ise Deleonan 1.2.840.1 [id number] Methodi 13:45:00 14:00:[address] 3.430.2.7 Hospit a .3.796130 l .8 2021-09-21 2021-09-21 [facility] Hosea Deleon 1.2.840.1 [id number] Methodi 13:45:00 14:00:[address] 3.430.2.7 Hospit a .3.913738 l .8 2021-09-21 2021-09-21 Travel 1.2.840.1 1.2.574.683 [id number] Methodi 00:00:00 00:00:[address] 3.430.2.7 0.2.7.3.698 Ho spita .3.030226 084.8 l .8 2021-09-21 2021-09-21 [facility] Hosea Deleon 1.2.840.1 [id number] Methodi 00:00:00 00:00:00 Orders Lucius [address]321.1.[address] 3.430.2.7 Hospit a .3.546897 l .8 2021-09-21 2021-09-21 Travel 1.2.840.1 1.2.666.921 [id number] Methodi 00:00:00 00:00:[address] 3.430.2.7 0.2.7.3.698 Ho spita .3.048813 084.8 l .8 2021-09-21 2021-09-21 [facility] Hosea Deleon 1.2.840.1 [id number] Methodi 00:00:00 00:00:00 Orders Lucius 70960.1.[address] 3.430.2.7 Hospit a .3.548969 l .8 2021-09-18 2021-09-18 Office Bhargavi 1.2.840.1 [id number] Methodi 13:45:00 16:22:47 [place] 26216.1.[address] 3.430.2.7 Hospit a .3.880952 l .8 2021-09-18 2021-09-18 Office Bhargavi 1.2.840.1 [id number] Methodi 13:45:00 16:22:47 Visit [place] 14241.1.[address] 3.430.2.7 Hospit a .3.790788 l .8 2021-09-18 2021-09-18 Travel 1.2.840.1 1.2.686.162 7843 [id number] Methodi 00:00:00 00:00:[address] 3.430.2.7 0.2.7.3.698 Ho spita .3.813246 084.8 l .8 2021-09-18 2021-09-18 Travel 1.2.840.1 1.2.508.768 1939 [id number] Methodi 00:00:00 00:00:[address] 3.430.2.7 0.2.7.3.698 Ho spita .3.185841 084.8 l .8 2021-07-03 2021-07-03 Outpatient EDD [facility] [id number] 421 [place] 00:00:00 00:00:00 SP 800 Method i 2021-04-26 2021-04-26 Outpatient [facility] [id number] [facility] 07:28:23 23:59:00 Norberto Medicin e 2021-04-16 2021-04-16 Office Carina [facility] 1.2.840.114 [id number] [facility] 09:55:21 10:48:40 Visit Polina Baptiste AMBULATOR 350.1.13.21 College Y 0.2.7.2.686 of [id number] Medi geno 830 e 2021-04-04 2021-04-04 Outpatient EDD [facility] [id number] 320 [place] 00:00:00 00:00:00 SP 780 Method i 2021-03-08 2021-03-08 Outpatient EDD [facility] [id number] 331 [place] 00:00:00 00:00:00 SP 152 Method i 2021-02-22 2021-02-22 Outpatient [facility] [id number] [facility] 00:00:00 00:00:00 2021-02-06 2021-02-06 Outpatient BHARGAVI [facility] [id number] [place] 00:00:00 00:00:00 ROQUE 037 Method i 2021-02-06 2021-02-06 Outpatient SITKA, [facility] [id number] 970 [place] 00:00:00 00:00:00 SP [address] 2021-01-31 2021-01-31 Outpatient SITKA, [facility] [id number] 269 [place] 00:00:00 00:00:00 SP [address] 2021-01-31 2021-01-31 Outpatient SITKA, [facility] [id number] [place] 00:00:00 00:00:00 SP [address] 2021-01-18 2021-01-18 Outpatient SITKA, [facility] [id number] 704 [place] 00:00:00 00:00:00 SP 899 Method i 2021-01-10 2021-01-10 Outpatient SITKA, [facility] 155 [id number] 269 [place] 00:00:00 00:00:00 SP 692 Method i 2020-12-28 2020-12-28 Outpatient HOSEA DELEON [facility] 585 [id number] [place] 00:00:00 00:00:[address] 2020-12-28 2020-12-28 Outpatient SITKA, [facility] [id number] [place] 00:00:00 00:00:00 SP 011 Method i 2020-12-19 2020-12-19 Outpatient [facility] [id number] [facility] 00:00:00 00:00:00 2020-12-18 2020-12-18 Office [facility] 1.2.840.114 [id number] [facility] 08:49:46 14:46:06 Visit , Anette AMBULATOR 350.1.13.21 College Y 0.2.7.2.686 [id number] [facility] geno 300 e 2020-12-18 2020-12-18 Outpatient SITKA, [facility] [id number] 463 [place] 00:00:00 00:00:00 SP [address] 2020-12-15 2020-12-15 [facility] [id number] [facility] 00:00:00 00:00:00 2020-12-15 2020-12-15 Outpatient [facility] [id number] [facility] 00:00:00 00:00:00 2020-11-13 2020-11-13 Outpatient ASHLEY LIM [facility] [id number] [facility] 00:00:00 00:00:00 POLINA 2020-11-13 2020-11-13 Outpatient CARINA SLE[facility] [id number] [facility] 00:00:00 00:00:00 POLINA 2020-11-09 2020-11-09 Office Carina [facility] 1.2.840.114 [id number] [facility] 10:07:36 16:15:46 Visit Polina Baptiste AMBULATOR 350.1.13.21 College Y 0.2.7.2.686 of [id number] [facility] 830 e 2020-10-31 2020-11-03 Inpatient BRET, [facility] [id number] 17 [place] 00:00:00 00:00:00 WARREN 654 Method i 2020-10-18 2020-10-18 [facility] 761 [id number] 564 [place] 00:00:00 00:00:00 ROQUE 806 Method i 2020-10-13 2020-10-13 [facility] [id number] [place] 00:00:00 00:00:00 ROQUE 333 Method i 2020-10-13 2020-10-13 Outpatient BHARGAVI, [facility] [id number] [place] 00:00:00 00:00:00 ROQUE 716 Method i 2020-10-06 2020-10-06 Laboratory Lab, [facility] Fam Pob I [facility] 1.2. 840.114 [id number] [facility] 14:30:14 14:50:14 Only Lisa [facility] 350.1.13.10 ity of [place] 4.2.7.2.686 Lino as Professio [id number] Wy dical nal [address] 2020-10-06 2020-10-06 Laboratory Lab, [facility] 1.2.840.114 [id number] 14:30:14 14:50:14 Only Fam Pob I Health 350.1.13.10 [place] 4.2.7.2.686 Professio [id number] nal 0[address] One 2020-10-06 2020-10-06 Outpatient R LEONIE, [facility] [id number] Univers 14:40:00 14:40:00 LISA calrk of [facility] 2020-10-06 2020-10-06 Letter Doctor DORON 1.2.840.114 [id number] [facility] 00:00:00 00:00:00 (Out) Unassigned, NISHANT 350.1.13.10 ity of [facility] 4.2.7.2.686 Lino as [phone] [address] 2020-10-06 2020-10-06 Letter Doctor DORON 1.2.840.114 [id number] [facility] 00:00:00 00:00:00 (Out) Unassigned, NISHANT 350.1.13.10 ity of [facility] 4.2.7.2.686 Lino as [phone] [address] 2020-10-06 2020-10-06 Letter Doctor SAL 1.2.840.114 [id number] 00:00:00 00:00:00 (Out) Unassigned, NISHANT 350.1.13.10 [facility] 4.2.7.2.686 [id number] 044 2020-10-06 2020-10-06 Letter Doctor DORON 1.2.840.114 [id number] 00:00:00 00:00:00 (Out) Unassigned, NISHANT 350.1.13.10 [facility] 4.2.7.2.686 [id number] 044 2020-10-05 2020-10-05 Outpatient [facility] [id number] [facility] 00:00:00 00:00:00 2020-10-05 2020-10-05 Outpatient ELVA KHOURY [facility] [id number] [place] 00:00:00 00:00:[address] 2020-09-27 2020-09-27 Office PHONG Lim 1.2.840.114 [id number] [facility] 09:48:17 11:45:41 Visit Polina Baptiste AMBULATOR 350.1.13.21 College Y 0.2.7.2.686 of [id number] [facility] 830 e 2020-09-25 2020-09-25 Office Renee BCM 1.2.840.114 [id number] [facility] 08:52:56 11:06:52 Visit , Anette AMBULATOR 350.1.13.21 College Y 0.2.7.2.686 [id number] Medi geno 300 e 2020-09-23 2020-09-23 Outpatient GUSTAVO, [facility] [id number] [place] 00:00:00 00:00:00 TANNER [address] 2020-09-13 2020-09-13 Outpatient CARINA [facility] [id number] [facility] 00:00:00 00:00:00 POLINA 2020-09-13 2020-09-13 Outpatient STEPHENIE LIM [facility] SLE [id number] [facility] 00:00:00 00:00:00 POLINA 2020-09-08 2020-09-08 Outpatient STEPHENIE [facility] SLE [id number] [facility] 00:00:00 00:00:00 2020-09-02 2020-09-02 Outpatient ASKED, NO [facility] [id number] [place] 00:00:00 00:00:[address] 2020-08-08 2020-08-08 Outpatient BHARGAVI [facility] [id number] [place] 00:00:00 00:00:00 ROQUE [address] 2020-07-13 2020-07-14 Outpatient BHARGAVI, [facility] [id number] [place] 00:00:00 00:00:00 ROQUE [address] 2020-07-10 2020-07-10 Outpatient BHARGAVI, [facility] [id number] [place] 00:00:00 00:00:00 ROQUE [address] 2020-07-04 2020-07-04 Outpatient BHARGAVI [facility] [id number] [place] 00:00:00 00:00:00 ROQUE [address] 2020-06-27 2020-06-27 Outpatient BHARGAVI, [facility] [id number] [place] 00:00:00 00:00:00 ROQUE [address] 2020-06-26 2020-06-26 Outpatient BHARGAVI [facility] [id number] 112 [place] 00:00:00 00:00:00 ROQUE [address] 2020-06-20 2020-06-20 Outpatient BHARGAVI, [facility] [id number] 345 [place] 00:00:00 00:00:00 ROQUE [address] 2020-04-25 2020-04-25 Outpatient BHARGAVI [facility] [id number] [place] 00:00:00 00:00:00 ROQUE [address] 2020-03-07 2020-03-07 Outpatient SITKA, [facility] [id number] [place] 00:00:00 00:00:00 SP [address] 2019-10-12 2019-10-12 Office PHONG Valdez 1.2.840.114 [id number] [facility] 09:55:07 11:22:50 Visit Torreymariana AMBULATOR 350.1.13.21 College P Y 0.2.7.2.686 of [id number] Medi geno 300 e 2019-09-21 2019-09-21 Office PHONG Lim 1.2.840.114 [id number] [facility] 13:24:19 14:41:19 Visit Polina Oliva AMBULATOR 350.1.13.21 College Y 0.2.7.2.686 of [id number] Medi geno 830 e 2019-08-23 2019-08-23 Office Renee DARLING 1.2.840.114 [id number] [facility] 11:42:57 14:11:07 Visit Anette AMBULATOR 350.1.13.21 College Y 0.2.7.2.686 of [id number] Medi geno 300 e 2019-06-08 2019-06-08 Outpatient BHARGAVI [facility] [id number] [place] 00:00:00 00:00:00 ROQUE [address] 2019-03-04 2019-03-04 Office PHONG Lim 1.2.840.114 [id number] [facility] 13:15:29 14:58:57 Visit Polina Baptiste AMBULATOR 350.1.13.21 College Y 0.2.7.2.686 of [id number] Medi geno 830 e Results Test Description Test Time Test Comments Results Result [facility] e Comments FL, FLUORO, 2022-03-12 Reason for NON-SPECIFIC, UP 08:50:00 exam:->RADIO TO 1 HOUR FREQUENCY ABLATION [facility] : 1945 Sex: M *An imaging unit was utilized for this procedure. No radiologist interpretation was requested. Refer to the EMR for findings. Refer to PACS for any patient radiation dose information. Activated clotting time 2021-12-06 11:59:00 Test Item Value Reference Range Interpretation Comme nts Activated clotting time (test 119 See_Comment Supply Assistant Name: Martin Jordanice code = 5298) ID: [id number] [A utomated message] The system which [employer] nerated this result transmitted ref erence range: 96 - 152 sec. The refere nce range was not used to interpret th is result as normal/abnormal . [facility] [id number] 11:59:00 Test Item Value Reference Range Interpretation Comments Activated clotting time See_Comment Oper ator Name: Martin (test code = 5298) JeffPulian Softwarei ce ID: [id number] [Automated mess age] The system which [employer] nerated this result tra nsmitted reference range : 96 - 152 sec. The refere nce range was not used to interpret this result as normal/abnormal . [facility]stEC[facility] Pre/Post [id number] 23:14:51 Test Item Value Reference Range Interpretation Comments Ventricular rate (test 81 code = 253) QRSD interval (test 118 code = 260) QT interval (test code 426 = 264) QTC interval (test 494 code = 265) QRS axis 1 (test code -52 = 268) T wave axis (test code 84 = 270) EKG impression (test Poor data code = 273) quality-Atrial fibrillation-Left axis deviation-Incomplete right bundle branch block-Minimal voltage criteria for LVH, may be normal variant ( [place] product )-Septal infarct , age undetermined-Abnormal ECG-In automated comparison with ECG of 04-OCT-2021 05:46,-Atrial fibrillation has replaced Sinus rhythm-Septal infarct is now present-T wave inversion no longer evident in Anterior leads-QT has lengthened-Electronical ly Signed By Pacheco Leonard MD ([id number]) on 12/05/2021 6:14:50 PM [facility] Pre/Post [id number] 23:14:51 Test Item Value Reference Range Interpretation [...] for LVH, may be normal variant ( [place] product )-Septal infarct , age undetermined-Abnormal ECG-In automated comparison with ECG of 04-OCT-2021 05:46,-Atrial fibrillation has replaced Sinus rhythm-Septal infarct is now present-T wave inversion no longer evident in Anterior leads-QT has lengthened-Electronical ly Signed By Pacheco Leonard MD ([id number]) on 12/05/2021 6:14:[address]2022-05-10 20:16:23 Test Item Value Reference Range Interpretation Comments Ventricular rate (test 64 code = 253) Atrial rate (test code 64 = 255) MT interval (test code 272 = 266) QRSD interval (test 106 code = 260) QT interval (test code 460 = 264) QTC interval (test code 474 = 265) QRS axis 1 (test code = -63 268) T wave axis (test code 78 = 270) EKG impression (test Sinus rhythm with 1st code = 273) degree AV block-Left anterior fascicular block-T wave abnormality, consider anterior ischemia-Prolonged QT-Abnormal ECG- [address]2022-05-10 20:16:23 Test Item Value Reference Range Interpretation [...] wave abnormality, consider anterior ischemia-Prolonged QT-Abnormal ECG- [facility] qualitative [id number] 01:47:05 Test Item Value Reference Interpretation Comments Range Interpretation (test Negative results do not code = 3374507) preclude COVID-19 infection and should not be used asthe sole basis for treatment or other patient management decisions. Negativeresults must be combined with clinical observations, patient history, andepidemiological information. COVID-19 qualitative Not-Detected Not-Detected RT-PCR result (test code = 78831-2) COVID-19 qualitative See link below for PDF Case Number: RT-PCR (test code = Lab Report [id number]) [facility] [id number] 01:47:05 Test Item Value Reference Interpretation Comments Range Interpretation (test Negative results do not code = 5710191) preclude COVID-19 infection and should not be used asthe sole basis for treatment or other patient management decisions. Negativeresults must be combined with clinical observations, patient history, andepidemiological information. COVID-19 qualitative Not-Detected Not-Detected RT-PCR result (test code = 75203-7) COVID-19 qualitative See link below for PDF Case Number: RT-PCR (test code = Lab Report [id number]) [facility] RNA [Presence] in Respiratory specimen by NETTE with probe [id number] 20:47:05 Test Item Value Reference Range Interpretation Comments SARS-CoV-2 (COVID-19) RNA Not detected [Presence] in Respiratory specimen by NETTE with probe detection (test code = 19486-0) Whether patient is employed in a Unknown healthcare setting (test code = 36361-7) Whether the patient has symptoms Unknown related to condition of interest (test code = 35299-7) Whether the patient was Unknown hospitalized for condition of interest (test code = 53785-7) Whether the patient was admitted Unknown to intensive care unit (ICU) for condition of interest (test code = 03191-4) Whether patient resides in a Unknown congregate care setting (test code = 97743-0) status (test code = Unknown 14975-9) Date and time of symptom onset Unknown (test code = 11685-5) JUAN MAYOSARS-CoV-2 (COVID-19) RNA [Presence] in Respiratory specimen by NETTE with probe [id number] 18:28:56 Test Item Value Reference Range Interpretation Comments SARS-CoV-2 (COVID-19) RNA Not detected [Presence] in Respiratory specimen by NETTE with probe detection (test code = 37124-7) Whether patient is employed in a Unknown healthcare setting (test code = 82617-9) Whether the patient has symptoms Unknown related to condition of interest (test code = 44741-2) Whether the patient was Unknown hospitalized for condition of interest (test code = 67831-9) Whether the patient was admitted Unknown to intensive care unit (ICU) for condition of interest (test code = 17436-0) Whether patient resides in a Unknown congregate care setting (test code = 57705-2) status (test code = Unknown 81847-7) Date and time of symptom onset Unknown (test code = 49837-2) JUAN MAYOSARS-CoV-2 (COVID-19) RNA [Presence] in Respiratory specimen by NETTE with probe [id number] 16:54:02 Test Item Value Reference Range Interpretation Comments SARS coronavirus RNA [Presence] Not detected in Isolate by NETTE with probe detection (test code = 93784-4) Whether patient is employed in a Unknown healthcare setting (test code = 89046-9) Whether the patient has symptoms Unknown related to condition of interest (test code = 00268-4) Whether the patient was Unknown hospitalized for condition of interest (test code = 88605-5) Whether the patient was admitted Unknown to intensive care unit (ICU) for condition of interest (test code = 34025-5) Whether patient resides in a Unknown congregate care setting (test code = 22104-3) status (test code = Unknown 67029-2) Date and time of symptom onset Unknown (test code = 45407-0) JUAN MELTONRS-CoV-2 (COVID-19) RNA [Presence] in Respiratory specimen by NETTE with probe [id number] 16:54:02 Test Item Value Reference Range Interpretation Comments SARS-CoV-2 (COVID-19) RNA Not detected [Presence] in Respiratory specimen by NETTE with probe detection (test code = 36454-5) Whether patient is employed in a Unknown healthcare setting (test code = 77972-6) Whether the patient has symptoms Unknown related to condition of interest (test code = 33854-3) Whether the patient was Unknown hospitalized for condition of interest (test code = 89493-9) Whether the patient was admitted Unknown to intensive care unit (ICU) for condition of interest (test code = 75801-8) Whether patient resides in a Unknown congregate care setting (test code = 17693-9) status (test code = Unknown 06022-1) Date and time of symptom onset Unknown (test code = 75106-5) JUAN LIMA-CoV-2 (COVID-19) RNA [Presence] in Respiratory specimen by NETTE with probe [id number] 21:45:50 Test Item Value Reference Range Interpretation Comments SARS-CoV-2 (COVID-19) RNA Not detected Not-Detected [Presence] in Respiratory specimen by NETTE with probe detection (test code = 16836-6) Whether patient is employed in a healthcare setting (test code = 77687-1) Whether the patient has symptoms related to condition of interest (test code = 49132-4) Patient was hospitalized because of this condition (test code = 76742-8) Whether the patient was admitted to intensive care unit (ICU) for condition of interest (test code = 72864-2) Whether patient resides in a congregate care setting (test code = 55034-6) JUAN COBB, FLUORO, NON-SPECIFIC, UP TO 1 [id number] 09:10:00 Reason for exam:->RADIOFREQUENCY ABLATION [facility] : 1945 Sex: MFluoroscopic unit utilized for a procedure performed in the OR. No interpretation was requested. Refer to the operative report for findings. Refer to PACS for patient radiation dose information.SARS-COV2/RT-PCR ([facility])2020-12-16 07:16:00 Test Item Value Reference Range Interpretation Comments SARS-COV2/RT-PCR (test Negative Not Detected, Negative, code = 7390678) See external report for linked test SARS-COV-[address] [facility] (test code = 6626211) Negative result for this test determines that [...] the [employer] SARS-CoV-2 assay.Fact Sheet for Healthcare Providers:https://www.MuckRock.Ninjathat/stephanie/RT_SAR U-IsD-7_LMI_Rnhr_Ahxbo_20-278180.pdfFact Sheet for Healthcare Patients:https://www.MuckRock.Ninjathat/s al/KA_OVMD-WnI-3_Ubylsrg_Rlvg_Tzlww_LH_65-369893H8.pdfPerforming Laboratory:[facility] [place] [address] URINALYSIS [id number] 15:50:00 Test Item Value Reference Range Interpretation Comments RBC UA (BEAKER) (test code = 519) 12 /HPF WBC UA (BEAKER) (test code = 520) 5 /HPF MUCUS (BEAKER) (test code = 1574) Many SQUAMOUS EPITHELIAL (BEAKER) (test 1 /HPF code = 516) HYALINE CASTS (BEAKER) (test code = 6 /LPF 514) CALCIUM OXALATE CRYSTALS (BEAKER) Few (test code = 518) Supply Assistant ID - techURINALYSIS WITH MICROSCOPIC IF [id number] 15:30:00 Test Item Value Reference Range Interpretation [...] = 463) SOURCE(BEAKER) (test code = 2795) Supply Assistant ID - [auto]BASIC METABOLIC [id number] 15:22:00 Test Item Value Reference Range Interpretation [...] S NOT APPLICABLE FOR DIALYSIS PATIEN TS. Supply Assistant ID - [id number] 15:07:00 Test Item Value Reference Range Interpretation Comments PARTIAL THROMBOPLASTIN TIME 32.0 seconds 22.5-36.0 (BEAKER) (test code = 760) PROTHROMBIN TIME/[id number] 15:06:00 Test Item Value Reference Range Interpretation Comments PROTIME (BEAKER) 13.9 seconds 11.9-14.2 (test code = 759) INR (BEAKER) (test 1.11 See_Comment [Automat ed message] code = 370) The system [employer] generated this result transmitted ref erence range: <=5.90. The reference range was not used to int erpret this result as normal/abnormal . RECOMMENDED COUMADIN/WARFARIN INR THERAPY RANGESSTANDARD DOSE: 2.0 - 3.0 Includes: PROPHYLAXIS for venous thrombosis, systemic embolization; TREATMENT for venous thrombosis and/or pulmonary embolus.HIGH RISK: Target INR is 2.5-3.5 for patients with mechanical heart valves.CBC W/PLT COUNT & AUTO [id number] 15:03:00 Test Item Value Reference Range Interpretation [...] (test code = 2801) RAD, CHEST, 2 [id number] 14:53:00Reason for exam:->preop [facility] : 1945 Sex: MFINAL [...] MDReport Verified Date/Time: 12/15/2020 14:53:22 Reading Location: [facility] Radiology Reading Room ZT-JaU-7 (COVID-19) RNA [Presence] in Respiratory specimen by NETTE with probe [id number] 15:18:59 Test Item Value Reference Range Interpretation Comments SARS-CoV-2 (COVID-19) RNA Not detected Not-Detected [Presence] in Respiratory specimen by NETTE with probe detection (test code = 30336-3) JUAN ZAMUDIO [facility]-COV2/RT-PCR ([facility])2020-09-08 17:47:00 Test Item Value Reference Range Interpretation Comments SARS-COV2/RT-PCR (test Negative Not Detected, Negative, code = 2605924) See external report for linked test SARS-COV-[address] [facility] (test code = 6787292) Negative result for this test determines that [...] 564(g) of the Act.Fact Sheet for Healthcare Pro viders:https://www.MyOutdoorTV.com.com/sites/default/files/product/documents/Fact_Sheet_H Z_Cxfbnbohk_Mysd_XIWG-AeG-8.pdfFact Sheet for Healthcare Patients:https://www.[employer]OutdoorTV.com.com/sites/default/files/product/docum ents/Kcal_Qzwod_Etfxgrnw_Tgdq_GQAX-GzO-7.pdfPerforming Laboratory:[address], [place] [address]GVQ, CHEST, 2 VIEWS 2020-09-08 12:56:00Reason for exam:->Trigeminal neuralgia [facility] : 1945 Sex: MFINAL [...] chest CT is recommended. Signed: Dariusz Li MDReport Verified Date/Time: 09/08/2020 12:56:25 PROTHROMBIN TIME/[id number] 11:09:00 Test Item Value Reference Range Interpretation Comments PROTIME (BEAKER) 14.1 seconds 11.9-14.2 (test code = 759) INR (BEAKER) (test 1.12 See_Comment [Automat ed message] code = 370) The system [employer] generated this result transmitted ref erence range: <=5.90. The reference range was not used to int erpret this result as normal/abnormal . Effective 12/23/2018: PT Reference Range ChangeNew: 11.9-14.2 Previous: 11.7- 14.7RECOMMENDED COUMADIN/WARFARIN INR THERAPY RANGESSTANDARD DOSE: 2.0-3.0 Includes: PROPHYLAXIS for venous thrombosis, systemic embolization; TREATMENT for venous thrombosis and/or pulmonary embolus.HIGH RISK: Target INR is 2.5-3.5 for patients wiht mechanical heart valves.[id number] 11:09:00 Test Item Value Reference Range Interpretation Comments PARTIAL THROMBOPLASTIN TIME 25.8 seconds 22.5-36.0 (BEAKER) (test code = 760) BASIC METABOLIC [id number] 11:07:00 Test Item Value Reference Range Interpretation [...] S NOT APPLICABLE FOR DIALYSIS PATIEN TS. Supply Assistant ID - PIAYA LCBC W/PLT COUNT & AUTO [id number] 10:57:00 Test Item Value Reference Range Interpretation [...] in Respiratory specimen by NETTE with probe [id number] 20:54:07 Test Item Value Reference Range Interpretation Comments SARS-CoV-2 (COVID-19) RNA Not detected Not-Detected [Presence] in Respiratory specimen by NETTE with probe detection (test code = 30828-4) DEEPTI CUMMINGS, NON-SPECIFIC, UP TO 1 [id number] 09:54:00 Reason for exam:->RADIOFREQUENCY ABLATION OF TRIGEMINAL NERVEFINAL REPORT A fluoroscopic unit was utilized for a procedure performed in the operating room. No interpretation was requested. Please refer to the operative report regarding findings. Please refer to PACS for patient radiation dose information. Signed: Mini Longoepaneta Verified Date/Time: 08/31/2019 09:54:29 Reading Location: [facility] Radiology Reading Room C METABOLIC [id number] 07:46:00 Test Item Value Reference Range Interpretation [...] S NOT APPLICABLE FOR DIALYSIS PATIEN TS. Supply Assistant ID - ZORAIDA [id number] 07:13:00 Test Item Value Reference Range Interpretation Comments PARTIAL THROMBOPLASTIN TIME 33.7 seconds 22.5-36.0 (BEAKER) (test code = 760) PROTHROMBIN TIME/[id number] 07:12:00 Test Item Value Reference Range Interpretation [...] mechanical heart valves.CBC W/PLT COUNT & AUTO [id number] 07:06:00 Test Item Value Reference Range Interpretation [...] MR, SPINE, CERVICAL, WITHOUT / WITH IV [id number] 11:05:00FINAL REPORT Exam: Cervical spine MRI without with IV contrastHistory: 73-year-old male with multiple sclerosisComparison studies: Cervical spine MRI 03/26/2018. Technique:Precontrast sagittal T1, T2 and inversion recovery, axial T1 and T2 cervical and thoracic. Postcontrast axial and sagittal [id number] contrast: 9 cc of Gadavist. Findings: Several pulse sequences are somewhat limited by artifacts related to patient motion. Spinal Cord: Normal in size and signal from the foramen magnum through T1. T2 lesion load: No gross new lesions. Multiple scattered demyelinating lesions. 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 lesions are grossly unchanged and described as [...] Moisés e/Time: 02/16/2019 11:05:03 Reading Location: [facility] Reading Room [address] [place] [address] MR, BRAIN, WITHOUT / WITH IV [id number] 10:50:00FINAL REPORT Exam: Brain MRI without with [...] Verified Date/Time: 02/16/2019 10:50:04 Reading Location: [facility] Reading Room [address] [place] [address] [id number] 10:10:00 Test Item Value Reference Range Interpretation Comments POC-CREATININE 1.2 mg/dL 0.6-1.3 TESTED AT [facility] 7200 ([facility]) (test VIKI BLD G A code = 1859) [facility] 7703 0 POC-EGFR 60 mL/min/1.73M2 ([facility]) (test code = 1860) [facility] IN OR/30 MINUTE [id number] 13:40:00Reason for exam:- >Trigeminal NeuralgiaFINAL REPORT Fluoroscopy 5 views intraoperative 07/17/2018 1:37 PM CLINICAL HISTORY: Instrument localization COMPARISON: None available IMPRESSION: Please correlate imaging report findings with the procedure note prepared by Dr. Marley, as an intra-procedure imaging consultation was not requested. Reported fluoroscopy time: 49.4 seconds. Signed: Tori Sarkar Verified Date/Time: 07/17/2018 13:40:25 Reading Location: [facility] Radiology Reading Room
--- NOTE | 2022-08-30 07:53 | ER ---
Nurse's Notes [facility] Name: Terrance Monroy Age: 76 yrs Sex: Male : 1945 Arrival Date: 08/30/2022 Time: 07:32 Bed 5 Private MD: Jyothi Mccollum C Diagnosis: Encounter for removal of sutures Presentation: 08/30 07:36 Chief complaint: Patient states: needs sutures removed. Coronavirus screen: At this ko1 time, the client does not indicate any symptoms associated with coronavirus-19. Ebola Screen: No symptoms or risks identified at this time. Initial Sepsis Screen: Does the patient meet any 2 criteria? No. Patient's initial sepsis screen is negative. Does the patient have a suspected source of infection? No. Patient's initial sepsis screen is negative. Risk Assessment: Do you want to hurt yourself or someone else? Patient reports no desire to harm self or others. Onset of symptoms was August 30, 2022. 07:36 Method Of Arrival: Ambulatory ko1 07:36 Acuity: RADHA 4 ko1 Triage Assessment: 07:38 General: Appears in no apparent distress. comfortable, Behavior is calm, cooperative, ko1 appropriate for age. Pain: Denies pain. Historical: - Allergies: 07:38 Plavix; ko1 - Home Meds: 07:38 Pradaxa Oral [Active]; ko1 - PMHx: 07:38 Atrial Fib; back spasms; atrial flutter; Cerebrovascular accident; back surgery; High ko1 Cholesterol; Hypertension; Hypothyroidism; CVA; TMJ; Trigeminal nueralgia; MS; ulcerative colitis; - Immunization history:: Adult Immunizations up to date. - Social history:: Smoking status: Patient denies any tobacco usage or history of. - Family history:: not pertinent. - Hospitalizations: : No recent hospitalization is reported. Vital Signs: 07:38 BP 136 / 92; Pulse 83; Resp 18; Temp 97.7; Pulse Ox 100% ; Weight 68.04 kg (R); Height ko1 6 ft. 4 in. (193.04 cm); 07:38 Body Mass Index 18.26 (68.04 kg, 193.04 cm) ko1 ED Course: 07:32 Patient arrived in ED. am2 07:32 Jyothi Mccollum MD is Private Physician. am2 07:34 Remington Kelly MD is Attending Physician. rn 07:36 Heavenly Goncalves, RN is Primary Nurse. ko1 07:38 Triage completed. ko1 07:38 Arm band placed on right wrist. ko1 07:51 Jyothi Mccollum MD is Referral Physician. rn Administered Medications: No medications were administered Outcome: 07:52 Discharge ordered by MD. rn 08:07 Discharged to home ambulatory. hb 08:07 Condition: stable 08:07 Discharge instructions given to patient, Instructed on discharge instructions, follow up and referral plans. medication usage, Demonstrated understanding of instructions, follow-up care. 08:07 Patient left the ED. hb Signatures: Remington Kelly MD MD rn Baxter, Heather, RN RN Lesa Dorsey am2 Heavenly Goncalves, RN RN ko1
--- NOTE | 2022-08-30 07:53 | EDPHYS ---
Physician Documentation [facility] Name: Terrance Monroy Age: 76 yrs Sex: Male : 1945 Arrival Date: 08/30/2022 Time: 07:32 Bed 5 Private MD: Jyothi Mccollum C ED Physician Remington Kelly HPI: 08/30 08:18 This 76 yrs old Male presents to ER via Ambulatory with complaints of Suture Removal. rn 08:18 The patient has sutures on the face. Previous treatment: The patient was initially rn treated 8 day(s) ago. Sutures/vania progress: The patient has no c/o's. The wound is well-healing with no redness, swelling, discharge, or dehiscence reported. The patient has not experienced similar symptoms in the past. The patient has been recently seen at the [facility] Emergency Department. Historical: - Allergies: 07:38 Plavix; ko1 - Home Meds: 07:38 Pradaxa Oral [Active]; ko1 - PMHx: 07:38 Atrial Fib; back spasms; atrial flutter; Cerebrovascular accident; back surgery; High ko1 Cholesterol; Hypertension; Hypothyroidism; CVA; TMJ; Trigeminal nueralgia; MS; ulcerative colitis; - Immunization history:: Adult Immunizations up to date. - Social history:: Smoking status: Patient denies any tobacco usage or history of. - Family history:: not pertinent. - Hospitalizations: : No recent hospitalization is reported. ROS: 08:18 Constitutional: Negative for fever, chills, and weight loss, Eyes: Negative for injury, rn pain, redness, and discharge. Exam: 08:18 Constitutional: This is a well developed, well nourished patient who is awake, alert, rn and in no acute distress. Head/Face: Well healed left brow laceration with [address], no open wound or drainage, no erythema or signs of infection Vital Signs: 07:38 BP 136 / 92; Pulse 83; Resp 18; Temp 97.7; Pulse Ox 100% ; Weight 68.04 kg (R); Height ko1 6 ft. 4 in. (193.04 cm); 07:38 Body Mass Index 18.26 (68.04 kg, 193.04 cm) ko1 Procedures: 08:18 Suture/Staple removal: Removed 3 sutures, from face, site appears well healed, Patient rn tolerated well. MDM: 07:34 Patient medically screened. rn 08:18 Data reviewed: vital signs, nurses notes, old medical records, and as a result, I will seo intern patient. Counseling: I had a detailed discussion with the patient and/or guardian regarding: the historical points, exam findings, and any diagnostic results supporting the discharge/admit diagnosis, the need for outpatient follow up, to return to the emergency department if symptoms worsen or persist or if there are any questions or concerns that arise at home. Response to treatment: the patient's symptoms have markedly improved after treatment, and as a result, I will discharge patient. Administered Medications: No medications were administered Disposition Summary: 08/30/22 07:52 Discharge Ordered Location: Home rn Problem: new rn Symptoms: have improved rn Condition: Stable rn Diagnosis - Encounter for removal of sutures rn Followup: rn - With: Jyothi Mccollum MD - When: As needed - Reason: Recheck today's complaints, Re-evaluation by your physician Discharge Instructions: - Discharge Summary Sheet rn - Suture Removal, Care After rn - How to Minimize Scarring After Surgery rn Forms: - Medication Reconciliation Form rn - Thank You Letter rn - Antibiotic marketing intern - Prescription Opioid Use rn Signatures: Remington Kelly MD MD rn Oliver, Kathy, RN RN ko1
[2022-08-30 08:27] VITALS: BP 136/92; TEMP 97.7; O2SAT 100
== END 2022-08-30 08:07 | disposition home or self-care (01) ==
LOC: ER 07:31
DX: Z48.02 Encounter for removal of sutures (principal)
CPT/HCPCS: 99281

== ENCOUNTER 2023-08-18 13:29 | Observation (INO) | payer OTHER ==
[2023-08-18 14:19] LABS: Absolute Lymphocytes (CBC) 0.5 K/uL (0.7-4.9); Hematocrit 42.6 % (39.6-49.0); Lymphocytes % 4.9 % (15.3-44.8); MCV 103.3 fL (80-100); MPV 8.1 fL (7.6-11.3); Platelets 199 thou/uL (152-406); RBC Red Blood Cell Count 4.13 M/uL (4.33-5.43)
[2023-08-18 14:28] LABS: Protime INR 1.26
[2023-08-18] MEDS ORDERED: CEFEPIME 2 GM VIAL ONE (14:31)
[2023-08-18] MEDS ORDERED: NA CHLORIDE 0.9% 2,000 ML ONE (14:31)
[2023-08-18] MEDS ORDERED: HYDROCORTISONE SUC 100 MG INJ ONE (14:31)
[2023-08-18 14:38] LABS: Albumin 3.1 g/dL (3.4-5.0); Bilirubin Total 0.5 mg/dL (0.2-1.0); Potassium 3.9 mEq/L (3.5-5.1); Protein, Total 6.7 g/dL (6.4-8.2)
[2023-08-18 14:41] LABS: Blood Morphology Comment NOT SEEN (NOT SEEN); Dohle Bodies PRESENT; Platelet Estimate ADEQ; Toxic Granulation 1+; White Blood Cell Scan OK (OK)
--- NOTE | 2023-08-18 14:54 | RAD REPORT ---
EXAM DESCRIPTION: RADChest Single View08/18/2023 2:14 pm CLINICAL HISTORY: hypotension COMPARISON: Chest Single View dated 08/10/2021; Chest Pa And Lat (2 Views) dated 08/24/2019; Chest Pa And Lat (2 Views) dated 07/09/2018; Chest Single View dated 08/01/2016 TECHNIQUE: Portable AP view of the chest. FINDINGS: The lungs are clear. No pneumothorax or effusion. The cardiomediastinal contours are unch anged with stable tortuosity of the descending thoracic aorta. IMPRESSION: No acute cardiopulmonary process.
[2023-08-18 16:15] LABS: Calcium Oxalate Crystals- Ur Moderate /HPF (None Seen); Specific Gravity 1.026 (1.005-1.030); Urine Bacteria <20 /HPF (<20); Urine Bilirubin NEGATIVE (Negative); Urine Blood Negative (Negative); Urine Clarity Turbid (Clear); Urine Color Yellow (Yellow); Urine Glucose NEGATIVE (Negative); Urine Mucus 2+ /HPF (None Seen); Urine Protein 1+ (Negative); Urine RBC 21-50 /HPF (None Seen); Urine Urobilinogen 1+ (Normal)
--- NOTE | 2023-08-18 16:55 | ER ---
Nurse's Notes [facility] Name: Terrance Monroy Age: 77 yrs Sex: Male : 1945 Arrival Date: 08/18/2023 Time: 13:29 Bed 7 Private MD: Jyothi Mccollum C Diagnosis: Hypotension, unspecified Presentation: 08/18 13:46 Chief complaint: Patient states: Weakness, sleeping 20+ hours a day, decreased ld1 appetite, dry mouth, SOB. Coronavirus screen: At this time, the client does not indicate any symptoms associated with coronavirus-19. Ebola Screen: No symptoms or risks identified at this time. 13:46 Method Of Arrival: Wheelchair ld1 13:49 Initial Sepsis Screen: Does the patient meet any 2 criteria? No. Patient's initial ld1 sepsis screen is negative. Does the patient have a suspected source of infection? No. Patient's initial sepsis screen is negative. Risk Assessment: Do you want to hurt yourself or someone else? Patient reports no desire to harm self or others. Onset of symptoms was August 18, 2023. 13:49 Acuity: RADHA 2 ld1 Triage Assessment: 13:49 General: Appears in no apparent distress. comfortable, Behavior is calm, cooperative, ld1 appropriate for age. Pain: Denies pain. EENT: No signs and/or symptoms were reported regarding the EENT system. Neuro: Level of Consciousness is awake, alert, obeys commands, Oriented to person, place, time, situation. Cardiovascular: Capillary refill < 3 seconds Patient's skin is warm and dry. Respiratory: Airway is patent Respiratory effort is even, unlabored. GI: Abdomen is flat, non-distended. : No signs and/or symptoms were reported regarding the genitourinary system. Derm: No signs and/or symptoms reported regarding the dermatologic system. Musculoskeletal: No signs and/or symptoms reported regarding the musculoskeletal system. Historical: - Allergies: 13:49 Plavix; ld1 - PMHx: 13:49 Atrial Fib; atrial flutter; back spasms; back surgery; Cerebrovascular accident; CVA; ld1 High Cholesterol; Hypertension; Hypothyroidism; MS; TMJ; Trigeminal nueralgia; ulcerative colitis; - Immunization history:: Adult Immunizations up to date. - Social history:: Smoking status: Patient denies any tobacco usage or history of. Patient/guardian denies using alcohol. - Family history:: not pertinent. Screenin:00 [facility] ED Fall Risk Assessment (Adult) History of falling in the last 3 months, bp including since admission No falls in past 3 months (0 pts). Abuse screen: Denies threats or abuse. Denies injuries from another. Nutritional screening: No deficits noted. Tuberculosis screening: No symptoms or risk factors identified. Assessment: 14:00 General: SEE TRIAGE NOTE. bp 15:00 Reassessment: Patient appears in no apparent distress at this time. Patient is alert, bp oriented x 3, equal unlabored respirations, skin warm/dry/pink. 16:00 Reassessment: Patient appears in no apparent distress at this time. Patient is alert, bp oriented x 3, equal unlabored respirations, skin warm/dry/pink. 16:57 Reassessment: ADMIT INITIATED. bp 19:00 Reassessment: No changes from previously documented assessment. Patient is alert, bp oriented x 3, equal unlabored respirations, skin warm/dry/pink. Vital Signs: 13:48 BP 62 / 44; Pulse 64; Resp 17; Temp 97.8; Pulse Ox 97% on R/A; Weight 63.5 kg; Height 6 ld1 ft. 4 in. ; Pain 0/10; 14:14 BP 106 / 73; ap3 15:00 BP 114 / 76; Pulse 55; Resp 16; Pulse Ox 97% ; bp 16:00 BP 136 / 86; Pulse 58; Resp 15; Pulse Ox 100% ; bp 16:57 BP 160 / 89; Pulse 57; Resp 16; Pulse Ox 100% ; bp 18:00 BP 140 / 88; Pulse 60; Resp 16; Pulse Ox 99% ; bp 19:00 BP 125 / 81; Pulse 79; Resp 16; Pulse Ox 97% ; bp 20:00 BP 114 / 81; Pulse 83; Resp 16; Pulse Ox 96% ; bp 21:00 BP 134 / 83; Pulse 63; Resp 16; Pulse Ox 98% ; bp 13:48 Body Mass Index 17.04 (63.50 kg, 193.04 cm) ld1 13:48 Pain Scale: Adult ld1 ED Course: 13:30 Patient arrived in ED. rg4 13:31 Jyothi Mccollum MD is Private Physician. rg4 13:35 Tor Linares MD is Attending Physician. rt 13:49 Triage completed. ld1 13:49 Arm band placed on right wrist. ld1 13:54 Vinicius Sanchez, HEIDI is Primary Nurse. bp 14:09 Initial lab(s) drawn, by me, sent to lab. First set of blood cultures drawn by me. ap3 14:13 Inserted saline lock: 20 gauge in right antecubital area, using aseptic technique. ap3 Blood collected. 14:14 CBC with Diff Sent. ap3 14:14 CMP Sent. ap3 14:14 Lactate w/ 2H reflex if indic. Sent. ap3 14:14 Protime (+inr) Sent. ap3 14:14 Ptt, Activated Sent. ap3 14:16 Chest Single View XRAY In Process Unspecified. EDMS 15:00 Patient has correct armband on for positive identification. Bed in low position. Call bp light in reach. Adult w/ patient. Provided Education on: N/A. 16:54 Jyothi Mccollum MD is Hospitalizing Provider. rt 21:22 No provider procedures requiring assistance completed. Patient admitted, IV remains in bp place. Administered Medications: 15:00 Drug: NS 0.9% IV (30 ml/kg) 30 ml/kg IV at bolus once; Sepsis Protocol Route: IV; Rate: bp bolus; Site: right forearm; 22:04 Follow up: Response: No adverse reaction; IV Status: Completed infusion; IV Intake: jw7 1905ml 15:00 Drug: Cefepime IVPB 2 grams IVPB at 200 ml/hr once over 30 mins; (mix in NS 100 mL) bp Route: IVPB; Rate: 200 ml/hr; Infused Over: 30 mins; Site: right forearm; 22:04 Follow up: Response: No adverse reaction; IV Status: Completed infusion; IV Intake: jw7 100ml 15:00 Drug: Solu-CORTEF IVP 100 mg IVP once Route: IVP; Site: right forearm; bp 16:58 Follow up: Response: No adverse reaction bp Medication: 21:24 VIS not applicable for this client. bp Intake: 22:04 IV: 100ml; Total: 100ml. jw7 22:04 IV: 1905ml; Total: 2005ml. jw7 Outcome: 16:54 Decision to Hospitalize by Provider. rt 21:23 Admitted to Med/surg accompanied by tech, via wheelchair, room 225, with chart, Report bp called to JODEE GORDON 21:23 Condition: stable 21:23 Instructed on the need for admit, 22:04 Patient left the ED. jw7 Signatures: Dispatcher [employer] Harleen Tate rg4 Vinicius Sanchez RN RN bp Lesa Salomon, RN RN ap3 Shayna Gooden RN RN ld1 Yessenia Grady RN RN jw7 Tor Linares MD MD rt
--- NOTE | 2023-08-18 16:55 | EDPHYS ---
Physician Documentation [facility] Name: Terrance Monroy Age: 77 yrs Sex: Male : 1945 Arrival Date: 08/18/2023 Time: 13:29 Bed 7 Private MD: Jyothi Mccollum C ED Physician Tor Linares HPI: 08/18 17:44 This 77 yrs old Male presents to ER via Wheelchair with complaints of Weakness. rt 17:44 Patient presents to the ED with fatigue, and generalized weakness. This been present rt for several days, significantly worsening. Patient is difficulty ambulating. He has not taken his medicines including steroids for a few days. Denies acute findings time, symptoms are severe in severity, no other aggravating relieving factors.. Historical: - Allergies: 13:49 Plavix; ld1 - PMHx: 13:49 Atrial Fib; atrial flutter; back spasms; back surgery; Cerebrovascular accident; CVA; ld1 High Cholesterol; Hypertension; Hypothyroidism; MS; TMJ; Trigeminal nueralgia; ulcerative colitis; - Immunization history:: Adult Immunizations up to date. - Social history:: Smoking status: Patient denies any tobacco usage or history of. Patient/guardian denies using alcohol. - Family history:: not pertinent. ROS: 17:44 Cardiovascular: Negative for chest pain, palpitations, and edema, Respiratory: Negative rt for shortness of breath, cough, wheezing, and pleuritic chest pain, Abdomen/GI: Negative for abdominal pain, nausea, vomiting, diarrhea, and constipation, Skin: Negative for injury, rash, and discoloration, Psych: Negative for depression, anxiety, suicide ideation, homicidal ideation, and hallucinations, 17:44 Constitutional: Positive for fatigue, malaise, 17:44 Neuro: Positive for dizziness, gait disturbance, weakness, Exam: 17:44 Head/Face: Normocephalic, atraumatic. Chest/axilla: Normal chest wall appearance and rt motion. Nontender with no deformity. No lesions are appreciated. Cardiovascular: Regular rate and rhythm with a normal S1 and S2. No gallops, murmurs, or rubs. Normal PMI, no JVD. No pulse deficits. Respiratory: Lungs have equal breath sounds bilaterally, clear to auscultation and percussion. No rales, rhonchi or wheezes noted. No increased work of breathing, no retractions or nasal flaring. Abdomen/GI: Soft, non-tender, with normal bowel sounds. No distension or tympany. No guarding or rebound. No evidence of tenderness throughout. Skin: Warm, dry with normal turgor. Normal color with no rashes, no lesions, and no evidence of cellulitis. MS/ Extremity: Pulses equal, no cyanosis. Neurovascular intact. Full, normal range of motion. Neuro: Awake and alert, GCS 15, oriented to person, place, time, and situation. Cranial nerves II-XII grossly intact. Motor strength 5/5 in all extremities. Sensory grossly intact. Cerebellar exam normal. Normal gait. Psych: Awake, alert, with orientation to person, place and time. Behavior, mood, and affect are within normal limits. 17:44 Constitutional: The patient appears Pale, obviously distressed 17:44 ENT: Dry mucous membranes. 17:44 ECG was reviewed by the Attending Physician. Vital Signs: 13:48 BP 62 / 44; Pulse 64; Resp 17; Temp 97.8; Pulse Ox 97% on R/A; Weight 63.5 kg; Height 6 ld1 ft. 4 in. ; Pain 0/10; 14:14 BP 106 / 73; ap3 15:00 BP 114 / 76; Pulse 55; Resp 16; Pulse Ox 97% ; bp 16:00 BP 136 / 86; Pulse 58; Resp 15; Pulse Ox 100% ; bp 16:57 BP 160 / 89; Pulse 57; Resp 16; Pulse Ox 100% ; bp 18:00 BP 140 / 88; Pulse 60; Resp 16; Pulse Ox 99% ; bp 19:00 BP 125 / 81; Pulse 79; Resp 16; Pulse Ox 97% ; bp 20:00 BP 114 / 81; Pulse 83; Resp 16; Pulse Ox 96% ; bp 21:00 BP 134 / 83; Pulse 63; Resp 16; Pulse Ox 98% ; bp 13:48 Body Mass Index 17.04 (63.50 kg, 193.04 cm) ld1 13:48 Pain Scale: Adult ld1 MDM: 13:51 Patient medically screened. rt 17:44 Data reviewed: vital signs, nurses notes, lab test result(s), EKG, radiologic studies. rt Consideration of Admission/Observation Patient was admitted/placed on observation. Management of patient was discussed with the following: Primary Care Provider: Agrees to admit. I considered the following discharge prescriptions or medication management in the emergency department Medications were administered in the Emergency Department. See MAR. Independent interpretation of the following test(s) in the Emergency Department X-Ray: My interpretation is No consolidation seen on interpretation of x-ray images. Care significantly affected by the following chronic conditions: Hypertension. Counseling: I had a detailed discussion with the patient and/or guardian regarding the historical points, exam findings, and any diagnostic results supporting the discharge/admit diagnosis, lab results, radiology results, the need for further work-up and treatment in the hospital. 08/18 14:05 Order name: Blood Culture Adult (2) rt 08/18 14:05 Order name: CBC with Diff; Complete Time: 15:12 rt 08/18 14:05 Order name: CMP; Complete Time: 15:12 rt 08/18 14:05 Order name: Lactate w/ 2H reflex if indic.; Complete Time: 15:12 rt 08/18 14:05 Order name: Protime (+inr); Complete Time: 15:12 rt 08/18 14:05 Order name: Ptt, Activated; Complete Time: 15:12 rt 08/18 14:05 Order name: Urinalysis w/ reflexes; Complete Time: 16:21 rt 08/18 14:21 Order name: CBC Smear Scan; Complete Time: 15:12 EDMS 08/18 14:05 Order name: Chest Single View XRAY; Complete Time: 15:12 rt 08/18 14:05 Order name: EKG; Complete Time: 14:05 rt 08/18 14:05 Order name: Accucheck; Complete Time: 14:28 rt 08/18 14:05 Order name: Cardiac monitoring; Complete Time: 14:06 rt 08/18 14:05 Order name: EKG - Nurse/Tech; Complete Time: 15:48 rt 08/18 14:05 Order name: IV Saline Lock - Large Bore; Complete Time: 14:14 rt 08/18 14:05 Order name: Labs collected and sent; Complete Time: 14:14 rt 08/18 14:05 Order name: O2 Per Protocol; Complete Time: 14:06 rt 08/18 14:05 Order name: O2 Sat Monitoring; Complete Time: 14:06 rt 08/18 14:05 Order name: Vital Signs; Complete Time: 14:06 rt EC:44 Rate is 56 beats/min. Rhythm is regular, A fib. QRS [place] is Normal. ME interval is rt normal. QRS interval is normal. QT interval is normal. No Q waves. No ST changes noted. Interpreted by me. Administered Medications: 15:00 Drug: NS 0.9% IV (30 ml/kg) 30 ml/kg IV at bolus once; Sepsis Protocol Route: IV; Rate: bp bolus; Site: right forearm; 22:04 Follow up: Response: No adverse reaction; IV Status: Completed infusion; IV Intake: jw7 1905ml 15:00 Drug: Cefepime IVPB 2 grams IVPB at 200 ml/hr once over 30 mins; (mix in NS 100 mL) bp Route: IVPB; Rate: 200 ml/hr; Infused Over: 30 mins; Site: right forearm; 22:04 Follow up: Response: No adverse reaction; IV Status: Completed infusion; IV Intake: jw7 100ml 15:00 Drug: Solu-CORTEF IVP 100 mg IVP once Route: IVP; Site: right forearm; bp 16:58 Follow up: Response: No adverse reaction bp Disposition Summary: 08/18/23 16:54 Hospitalization Ordered Notes: Hospitalization Status: Observation rt Provider: Jyothi Mccollum rt Condition: Stable rt Problem: new rt Symptoms: have improved rt Bed/Room Type: Standard rt Location: Telemetry/MedSurg (observation)(08/18/23 20:33) cg Room Assignment: [facility](08/18/23 20:33) cg Diagnosis - Hypotension, unspecified rt Forms: - Medication Reconciliation Form rt - SBAR form rt - Leadership Thank You Letter rt Critical care time excluding procedures: 17:44 Critical care time: Bedside Care: 30 minutes, Consultation: 5 minutes. Total time: 35 rt minutes Signatures: Dispatcher [employer] EDMS Melissa Elliott Cindy, RN RN Vinicius Cleaning RN RN bp Sims, Lauren, RN RN ld1 Tor Linares MD MD rt Yessenia Grady RN jw7 Corrections: (The following items were deleted from the chart) 18:18 16:54 Telemetry/MedSurg (observation) rt bd 18:18 16:54 rt bd 20:33 18:18 [facility] [[email or web address]] ER HOLD bd cg 20:33 18:18 ERHOLD- bd cg
[2023-08-18] MEDS: NA CHLORIDE 0.9% 1,000 ML IV SCH (23:33)
[2023-08-19 00:12] LABS: Calcium Oxalate Crystals- Ur Few /HPF (None Seen); Specific Gravity 1.028 (1.005-1.030); Urine Bacteria None Seen /HPF (<20); Urine Bilirubin NEGATIVE (Negative); Urine Blood Negative (Negative); Urine Clarity Clear (Clear); Urine Color Yellow (Yellow); Urine Glucose NEGATIVE (Negative); Urine Mucus 1+ /HPF (None Seen); Urine Protein 1+ (Negative); Urine RBC 21-50 /HPF (None Seen); Urine Urobilinogen Normal (Normal)
[2023-08-19 01:04] VITALS: BMI 16.5
[2023-08-19] MEDS: HYDROCORTISONE SUC 100 MG INJ IV SCH ×2 (04:34→09:47)
[2023-08-19 04:45] VITALS: O2SAT 98
[2023-08-19] MEDS ORDERED: AMLODIPINE 5 MG TAB PO ONE (06:26)
--- NOTE | 2023-08-19 06:39 | HP ---
Date of Admission: 08/18/2023 Chief Complaint: Feeling weak, tired, and falling down. History Of Present Illness: This is a 77-year-old male patient with multiple chronic medical problem s, had tele visit last week on and at that time, the patient and patient's , they both r eported that he is having increasing problem with generalized weakness with poor appetite, excessive sleepiness to the extent that he sleeps 16 to 18 hours a day and has had multiple falls. With that, he was advised to come to emergency room and this was evening when I talked to the patient a nd the patient's and they informed me that will bring him to the emergency room next day wh ich is Friday morning and unfortunately as I understand now the patient did not want to come to [facility], so he did not until today. He decided to come to emergency room because he was feeling really b ad. When he arrived to emergency room triage area, his systolic blood pressure was around 60, so he was immediately brought back to emergency room. IV fluid was given and he responded very well. All his routine labs were done, which came back unremarkable and I was contacted and the patient was admi tted to the hospital. The patient has a prior history of orthostatic hypotension and this was diagno sed in July of 2021. At that time, we also did a cortisol stimulation test and it was negative. The patient was prescribed midodrine and fludrocortisone over period of time for his orthostatic hypo tension and today, the patient and his , they both reported to me that he has stopped taking thes e medications about 3 weeks ago. The patient denies any chest pain, shortness of breath, fever. No vomiting. No diarrhea. Allergies: NO KNOWN ALLERGIES. Medications: List reviewed. Review of Systems: Constitutional: As mentioned above. Cardiovascular: As mentioned above. All other systems reviewed and negative. Past Medical History: Significant for multiple sclerosis, trigeminal neuralgia, allergic rhinitis, h ypothyroidism, impaired fasting glucose, orthostatic hypotension, chronic atrial fibrillation, hyperl ipidemia, coronary artery disease, hypertension, gastroesophageal reflux disease, diverticulosis, ulc erative colitis, benign prostatic hypertrophy, and chronic kidney disease. Past Surgical History: Ablation for trigeminal neuralgia, tonsillectomy, coronary artery angioplasty with stent placement in August 2019, ablation for atrial fibrillation multiple times, and back dar carroll. Family History: Father had IA. Mother had heart disease and diabetes. Sister with arthritis. Social History: Prior history of smoking not at present time. Use of alcohol occasional. Physical Examination: Vital Signs: Height 6 feet inches, weight pounds, temperature , puls e , respiratory rate , blood pressure , oxygen saturation . General: Awake, alert, oriented, not in distress. HEENT: Head atraumatic, normocephalic. Conjunctivae nonerythematous. Sclerae white. Mouth, no thr ush or edema noted. Ears/Nose, no mass, lesion, discharge noted. Neck: Supple. No JVD, lymph nodes, bruit, thyromegaly noted. Lungs: Bilateral good equal air entry. Clear to auscultation. No rhonchi. No rales. Heart: Normal heart sounds, no murmur or gallop. Abdomen: Soft, bowel sounds normal. No guarding, rigidity, tenderness, mass, hepatosplenomegaly, dis tention, or bruit noted. Extremities: No leg edema. No calf tenderness. Skin: No rash, ulcer, cellulitis. Lymphatics: No lymph node enlargement in neck, supraclavicular, infraclavicular region. Neuro: No focal neurological deficit. Chest: Unremarkable. External Genitalia: Deferred. Rectal: Deferred. Laboratory Data: White count 9.8, hemoglobin 14.8, platelets 199. Sodium 134, potassium 3.9, chlori de 101, bicarb 30, BUN 20, creatinine 0.99, glucose 117. Liver function tests unremarkable. Lactic acid 2. Urinalysis unremarkable except 20 to 50 rbc's. Impression: 1.Orthostatic hypotension. 2.Coronary artery disease. 3.Chronic atrial fibrillation. 4.Chronic anticoagulation therapy. 5.Multiple sclerosis. 6.Impaired fasting glucose. 7.Hypothyroidism. 8.Trigeminal neuralgia. 9.Hyperlipidemia. 10.Hypertension. 11.Gastroesophageal reflux disease. 12.Ulcerative colitis. 13.Benign prostatic hypertrophy. Plan: We will go ahead and admit the patient to hospital for observation. He responded very well to IV fluid in the emergency room and blood pressure stabilized after [facility] We will have him on maintenance IV fluid now and monitor him overnight. His blood work looks unremarkable. He is very stable at this point and I had a long discussion with him in [facility] of his in the emergency room and that is not to stop his medication on his own without asking me. He was advised to get back on his fludrocortisone once a day and midodrine was prescribed 5 mg 3 times a day, but we will change it to 2 times a day because [facility] and [facility] to bed around 6:30 p.m., so what we will ask him to do is take midodrine first dose arou nd 7 a.m. in the morning, which will be 1 hour before he gets out of the bed and then second dose of midodrine around noon time. He will also take fludrocortisone once a day in the morning. Rest of hi s other medications will be continued as he was taking before and the patient should keep himself wel l hydrated. I will see him tomorrow for followup and our plan is to possibly discharge him to [facility] tomorrow. Details and plan of treatment discussed with the patient and the patient's . While in hospital, we will continue his Pradaxa that he takes for his atrial fibrillation. RADHA/MODL Voice ID: [id number]
[2023-08-19 06:57] LABS: Absolute Lymphocytes (CBC) 0.5 K/uL (0.7-4.9); Hematocrit 38.6 % (39.6-49.0); Lymphocytes % 7.3 % (15.3-44.8); MCV 103.3 fL (80-100); MPV 8.4 fL (7.6-11.3); Platelets 198 thou/uL (152-406); RBC Red Blood Cell Count 3.74 M/uL (4.33-5.43)
[2023-08-19] MEDS ORDERED: MIDODRINE HCL 5 MG TABLET PO SCH (07:00)
[2023-08-19 07:24] LABS: Potassium 4.2 mEq/L (3.5-5.1)
[2023-08-19 07:25] LABS: Thyroid Stimulating Hormone 7.12 uIU/mL (0.358-3.740)
[2023-08-19] MEDS: NA CHLORIDE 0.9% 1,000 ML IV SCH (07:36)
[2023-08-19 08:30] VITALS: BP 178/87; TEMP 98.8
[2023-08-19] MEDS ORDERED: DABIGATRAN 75 MG CAP PO SCH (09:00)
[2023-08-19] MEDS ORDERED: FLUDROCORTISONE 0.1 MG TAB PO SCH (09:00)
--- NOTE | 2023-08-19 17:51 | EKG ---
Test Date: 2023-08-18 Test Time: 15:40:13 Manager Tax: DANIEL MEASUREMENT RESULTS: Intervals: Rate: 56 NJ: QRSD: 120 QT: 440 QTc: 424 [place]: P: 61 NJ: QRS: -50 T: 21 INTERPRETIVE STATEMENTS: Sinus rhythm Left anterior fascicular block Nonspecific T wave abnormality Abnormal ECG Compared to ECG 07/23/2023 11:59:14 Left anterior fascicular block now present First degree AV block no longer present T-wave abnormality still present Electronically Signed On 08-19-23 17:49:02 [employer] by Jorge Alberto Navarro
== END 2023-08-19 11:35 | disposition home or self-care (01) ==
LOC: ER 13:29 → ERHOLD 16:55 → 2ND 20:56
PROVIDERS: ADMIT Internal Medicine; ATTEND Internal Medicine
DX: I95.1 Orthostatic hypotension (principal); I25.10 Atherosclerotic heart disease of native coronary artery without angina pectoris; I48.11 Longstanding persistent atrial fibrillation; Z79.01 Long term (current) use of anticoagulants; G35 Multiple sclerosis; R73.01 Impaired fasting glucose; E03.9 Hypothyroidism, unspecified; G50.0 Trigeminal neuralgia; E78.5 Hyperlipidemia, unspecified; I10 Essential (primary) hypertension; K21.9 Gastro-esophageal reflux disease without esophagitis; K51.90 Ulcerative colitis, unspecified, without complications; N40.0 Benign prostatic hyperplasia without lower urinary tract symptoms
CPT/HCPCS: 93005; 87040 ×2; 85025 ×2; 81001 ×2; 80048; 36415; 85610; 83605; 85730; 84443; 84439; 82607; 80053; 71045; J0692; J1720 ×2; J7030 ×2; G0378

== ENCOUNTER 2023-09-03 17:20 | Inpatient (IN) | payer OTHER ==
--- NOTE | 2023-09-03 18:02 | ER ---
Nurse's Notes [facility] Name: Terrance Monroy Age: 77 yrs Sex: Male : 1945 Arrival Date: 09/03/2023 Time: 17:20 Bed 4 Private MD: Diagnosis: Weakness;Anorexia;Cough;Multiple sclerosis;Pneumonia due to other specified bacteria-bilateral, patchy;Constipation;Elevated white blood cell count;Do not resuscitate Presentation: 09/03 17:29 Chief complaint: EMS states: pt has been feeling generally weak and with a decreased kc6 appetite x1mo. pt was found to be 88% on RA for EMS. pt placed on 4L via NC and is now 95%. Coronavirus screen: At this time, the client does not indicate any symptoms associated with coronavirus-19. Ebola Screen: No symptoms or risks identified at this time. Initial Sepsis Screen: Does the patient meet any 2 criteria? No. Patient's initial sepsis screen is negative. Does the patient have a suspected source of infection? No. Patient's initial sepsis screen is negative. Risk Assessment: Do you want to hurt yourself or someone else? Patient reports no desire to harm self or others. Onset of symptoms was September 03, 2023. 17:29 Method Of Arrival: EMS: [facility] kc6 17:29 Acuity: RADHA 3 kc6 Triage Assessment: 17:30 General: Appears in no apparent distress. comfortable, ill, well groomed, well kc6 developed, Behavior is calm, cooperative, appropriate for age. Pain: Denies pain. EENT: No signs and/or symptoms were reported regarding the EENT system. Neuro: Level of Consciousness is awake, alert, obeys commands, Oriented to person, place, time, situation, Appropriate for age. Cardiovascular: Denies chest pain, Heart tones S1 S2 present Capillary refill < 3 seconds Rhythm is sinus rhythm. Respiratory: Airway is patent Trachea midline Respiratory effort is even, unlabored, Respiratory pattern is regular, symmetrical. GI: Reports anorexia. : No signs and/or symptoms were reported regarding the genitourinary system. Derm: No signs and/or symptoms reported regarding the dermatologic system. Skin is intact, is healthy with good turgor, Skin is pink, warm \T\ dry. Musculoskeletal: No signs and/or symptoms reported regarding the musculoskeletal system. Circulation, motion, and sensation intact. Capillary refill < 3 seconds, Range of motion: intact in all extremities. Historical: - Allergies: 17:30 Plavix; kc6 - PMHx: 17:30 Atrial Fib; atrial flutter; back spasms; back surgery; Cerebrovascular accident; CVA; kc6 High Cholesterol; Hypertension; Hypothyroidism; MS; TMJ; Trigeminal nueralgia; ulcerative colitis; - PSHx: 17:30 None; kc6 - Immunization history:: Adult Immunizations not up to date. - Social history:: Smoking status: Patient denies any tobacco usage or history of. - Family history:: not pertinent. Screenin:32 [facility] ED Fall Risk Assessment (Adult) History of falling in the last 3 months, [facility] including since admission No falls in past 3 months (0 pts) Confusion or Disorientation No (0 pts) Intoxicated or Sedated No (0 pts) Impaired Gait No (0 pts) Mobility Assist Device Used No (0 pt) Altered Elimination No (0 pt) Score/Fall Risk Level 0 - 2 = Low Risk. Abuse screen: Denies threats or abuse. Denies injuries from another. Nutritional screening: No deficits noted. Tuberculosis screening: No symptoms or risk factors identified. Assessment: 17:32 Reassessment: please see triage assessment. [facility] 18:32 Reassessment: Patient appears in no apparent distress at this time. No changes from [facility] previously documented assessment. Patient and/or family updated on plan of care and expected duration. Pain level reassessed. Patient is alert, oriented x 3, equal unlabored respirations, skin warm/dry/pink. Vital Signs: 17:29 BP 136 / 98; Pulse 72; Resp 19 S; Temp 98.2(O); Pulse Ox 99% on 4 lpm NC; Weight 61.23 kc6 kg (R); Height 6 ft. 4 in. (R); 18:30 BP 161 / 106; Pulse 61; Resp 24; Pulse Ox 93% on 4 lpm NC; me1 19:30 BP 147 / 105; Pulse 63; Resp 23; Pulse Ox 100% on 3.5 lpm NC; me1 17:29 Body Mass Index 16.43 (61.23 kg, 193.04 cm) [facility] ED Course: 17:29 Patient arrived in ED. [facility] 17:30 Triage completed. kc6 17:30 Arm band placed on. kc6 17:32 Ruddy Villalobos MD is Attending Physician. allyn 17:32 Maintain EMS IV. Dressing intact. Good blood return noted. Site clean \T\ dry. Gauge \T\ racheal 6 site: 20G R WRIST. Oxygen administration via nasal cannula \T\ 4L/min. 17:33 Patient has correct armband on for positive identification. Placed in gown. Bed in low kc6 position. Call light in reach. Side rails up X2. Adult w/ patient. Client placed on continuous cardiac and pulse oximetry monitoring. NIBP monitoring applied. desk monitor on. 17:59 Stiven Mccollum MD is Hospitalizing Provider. allyn 18:00 Inserted saline lock: 22 gauge in left forearm, using aseptic technique. Blood kc6 collected. 18:03 Tigist Wong RN is Primary Nurse. kc6 18:13 XRAY Chest (1 view) In Process Unspecified. EDMS 18:47 CT Stone Protocol In Process Unspecified. EDMS 19:00 Report given to HEIDI Diaz. kc6 20:04 No provider procedures requiring assistance completed. me1 20:05 Provided Education on: POC. Verbalized understanding. . me1 20:05 Patient admitted, IV remains in place. me1 Administered Medications: 18:38 Drug: NS 0.9% IV 1000 ml IV at 1 bolus Per protocol; 1000 mL bolus Route: IV; Rate: 1 me1 bolus; Site: right wrist; 19:50 Follow up: IV Status: Completed infusion; IV Intake: 1000ml me1 18:38 Drug: Rocephin IV 1 grams IV at per protocol once; Given slow IV push per pharmacy me1 instructions Route: IV; Rate: per protocol; Site: right wrist; 19:50 Follow up: Response: No adverse reaction; IV Status: Completed infusion me1 18:39 Drug: Famotidine IVP 20 mg IVP once; dilute with 10 mL 0.9% NaCl; give over 2 minutes kc6 Route: IVP; Site: right forearm; 19:08 Follow up: Response: No adverse reaction kc6 18:58 Drug: levofloxacin IVPB 500 mg 100 ml IVPB once over 60 mins Volume: 100 ml; Route: me1 IVPB; Infused Over: 60 mins; Site: right wrist; 19:58 Follow up: Response: No adverse reaction; IV Status: Completed infusion me1 19:58 Drug: Piperacillin-Tazobactam IVPB 3.375 grams IVPB once over 60 mins; (mix in NS 100 me1 mL) Route: IVPB; Infused Over: 60 mins; Site: right wrist; Medication: 20:05 VIS not applicable for this client. me1 Intake: 19:50 IV: 1000ml; Total: 1000ml. me1 Outcome: 18:01 Decision to Hospitalize by Provider. allyn 20:04 Admitted to Med/surg accompanied by tech, via stretcher, room 201, with oxygen, with me1 chart, Report called to HEIDI Negro 20:04 Condition: stable 20:04 Instructed on the need for admit, 21:11 Patient left the ED. jb4 Signatures: Dispatcher [employer] EDRuddy Naqvi MD MD cha Bryson, James RN RN jb4 Tigist Wong RN RN kc6 Salima Reyes RN RN me1 Corrections: (The following items were deleted from the chart) 17:33 17:29 Chief complaint: EMS states: pt has been feeling generally weak and with a kc6 decreased appetite x1mo. kc6
--- NOTE | 2023-09-03 18:02 | EDPHYS ---
Physician Documentation [facility] Name: Terrance Monroy Age: 77 yrs Sex: Male : 1945 Arrival Date: 09/03/2023 Time: 17:20 Bed 4 Private MD: ED Physician Ruddy Villalobos HPI: 09/03 17:46 This 77 yrs old Male presents to ER via EMS with complaints of General allyn Weakness. 17:46 WEAK, COUGH X 1 WEAK. The patient or guardian reports cough, described as mild, flu allyn symptoms. Onset: The symptoms/episode began/occurred 1 week(s) ago. Severity of symptoms: At their worst the symptoms were mild, in the emergency department the symptoms are unchanged. Modifying factors: The symptoms are alleviated by nothing, the symptoms are aggravated by nothing. Severity of symptoms: At their worst the symptoms were mild in the emergency department the symptoms are unchanged. The patient has experienced similar episodes in the past, a few times. Historical: - Allergies: 17:30 Plavix; kc6 - PMHx: 17:30 Atrial Fib; atrial flutter; back spasms; back surgery; Cerebrovascular accident; CVA; kc6 High Cholesterol; Hypertension; Hypothyroidism; MS; TMJ; Trigeminal nueralgia; ulcerative colitis; - PSHx: 17:30 None; kc6 - Immunization history:: Adult Immunizations not up to date. - Social history:: Smoking status: Patient denies any tobacco usage or history of. - Family history:: not pertinent. ROS: 17:46 Constitutional: Negative for fever, chills, and weight loss, Eyes: Negative for injury, allyn pain, redness, and discharge, ENT: Negative for injury, pain, and discharge, Neck: Negative for injury, pain, and swelling, Cardiovascular: Negative for chest pain, palpitations, and edema, Abdomen/GI: Negative for abdominal pain, nausea, vomiting, diarrhea, and constipation, Back: Negative for injury and pain, : Negative for injury, bleeding, discharge, and swelling, MS/Extremity: Negative for injury and deformity, Skin: Negative for injury, rash, and discoloration, Psych: Negative for depression, anxiety, suicide ideation, homicidal ideation, and hallucinations, Allergy/Immunology: Negative for hives, rash, and allergies, Endocrine: Negative for neck swelling, polydipsia, polyuria, polyphagia, and marked weight changes, Hematologic/Lymphatic: Negative for swollen nodes, abnormal bleeding, and unusual bruising, 17:46 Respiratory: Positive for cough, 17:46 Neuro: Positive for weakness, Exam: 17:46 Constitutional: This is a well developed, well nourished patient who is awake, alert, allyn and in no acute distress. Head/Face: Normocephalic, atraumatic. Eyes: Pupils equal round and reactive to light, extra-ocular motions intact. Lids and lashes normal. Conjunctiva and sclera are non-icteric and not injected. Cornea within normal limits. Periorbital areas with no swelling, redness, or edema. ENT: Nares patent. No nasal discharge, no septal abnormalities noted. Tympanic membranes are normal and external auditory canals are clear. Oropharynx with no redness, swelling, or masses, exudates, or evidence of obstruction, uvula midline. Mucous membranes moist. Neck: Trachea midline, no thyromegaly or masses palpated, and no cervical lymphadenopathy. Supple, full range of motion without nuchal rigidity, or vertebral point tenderness. No Meningismus. Chest/axilla: Normal chest wall appearance and motion. Nontender with no deformity. No lesions are appreciated. Cardiovascular: Regular rate and rhythm with a normal S1 and S2. No gallops, murmurs, or rubs. Normal PMI, no JVD. No pulse deficits. Abdomen/GI: Soft, non-tender, with normal bowel sounds. No distension or tympany. No guarding or rebound. No evidence of tenderness throughout. Back: No spinal tenderness. No costovertebral tenderness. Full range of motion. Male : Normal genitalia with no discharge or lesions. Skin: Warm, dry with normal turgor. Normal color with no rashes, no lesions, and no evidence of cellulitis. MS/ Extremity: Pulses equal, no cyanosis. Neurovascular intact. Full, normal range of motion. Neuro: Awake and alert, GCS 15, oriented to person, place, time, and situation. Cranial nerves II-XII grossly intact. Motor strength 5/5 in all extremities. Sensory grossly intact. Cerebellar exam normal. Normal gait. Psych: Awake, alert, with orientation to person, place and time. Behavior, mood, and affect are within normal limits. 17:46 Respiratory: the patient does not display signs of respiratory distress, Respirations: normal, Breath sounds: bronchial sounds, that are mild, are scattered, rhonchi, that are mild, are scattered, Respiratory rate: 18 18:53 ECG was reviewed by the Attending Physician. [facility] Vital Signs: 17:29 BP 136 / 98; Pulse 72; Resp 19 S; Temp 98.2(O); Pulse Ox 99% on 4 lpm NC; Weight 61.23 kc6 kg (R); Height 6 ft. 4 in. (R); 18:30 BP 161 / 106; Pulse 61; Resp 24; Pulse Ox 93% on 4 lpm NC; me1 19:30 BP 147 / 105; Pulse 63; Resp 23; Pulse Ox 100% on 3.5 lpm NC; me1 17:29 Body Mass Index 16.43 (61.23 kg, 193.04 cm) kc6 MDM: 17:32 Patient medically screened. allyn 17:54 Differential Diagnosis altered mental status, sepsis, flu, Obstructed Airway Bronchitis [facility] Influenza Pharyngitis Otitis Media Viral Syndrome Pneumonia. Data reviewed: vital signs, nurses notes, lab test result(s), EKG, radiologic studies, CT scan, plain films. Consideration of Admission/Observation Patient was admitted/placed on observation. Escalation of care including admission/observation considered. I considered the following discharge prescriptions or medication management in the emergency department Medications were administered in the Emergency Department. See MAR. Independent interpretation of the following test(s) in the Emergency Department EKG: See my EKG interpretation above. Test considered but Not performed: Ultrasound NO ABD USG. Care significantly affected by the following chronic conditions: A FIB, FLUTTER, BACK SX, CVA, MS. 09/03 17:44 Order name: Basic Metabolic Panel [facility] 09/03 17:44 Order name: CBC with Diff; Complete Time: 19:35 [facility] 09/03 17:44 Order name: Troponin HS [facility] 09/03 17:44 Order name: Blood Culture Adult (2) [facility] 09/03 17:44 Order name: Lipase [facility] 09/03 17:44 Order name: Urinalysis w/ reflexes [facility] 09/03 17:44 Order name: Lactate w/ 2H reflex if indic.; Complete Time: 19:35 [facility] 09/03 17:48 Order name: SARS RAPID; Complete Time: 19:35 09/03 17:48 Order name: Influenza Screen (a \T\ B); Complete Time: 19:35 bd 09/03 18:15 Order name: Basic Metabolic Panel EDMS 09/03 18:15 Order name: Basic Metabolic Panel EDMS 09/03 18:15 Order name: CBC with Automated Diff EDMS 09/03 18:15 Order name: CBC with Automated Diff EDMS 09/03 18:15 Order name: Troponin High Sensitivity; Complete Time: 19:35 EDMS 09/03 20:22 Order name: LFT's [facility] 09/03 17:44 Order name: XRAY Chest (1 view); Complete Time: 18:44 allyn 09/03 17:57 Order name: CT Stone Protocol; Complete Time: 19:35 allyn 09/03 17:44 Order name: EKG; Complete Time: 17:44 allyn 09/03 18:15 Order name: CONS Physician Consult EDAR 09/03 18:15 Order name: EKG Electrocardiogram EDAR 09/03 18:15 Order name: EKG Electrocardiogram EDAR 09/03 18:15 Order name: EKG Electrocardiogram EDAR 09/03 18:15 Order name: EKG Electrocardiogram EDAR 09/03 18:53 Order name: CONS Physician Consult EDAR 09/03 17:44 Order name: Cardiac monitoring; Complete Time: 18:04 allyn 09/03 17:44 Order name: EKG - Nurse/Tech; Complete Time: 18:35 allyn 09/03 17:44 Order name: IV Saline Lock; Complete Time: 18:35 allyn 09/03 17:44 Order name: Labs collected and sent; Complete Time: 18:35 allyn 09/03 17:44 Order name: O2 Per Protocol; Complete Time: 18:04 allyn 09/03 17:44 Order name: O2 Sat Monitoring; Complete Time: 18:04 allyn 09/03 18:30 Order name: Labs - recollect needed: recollect green top; Complete Time: 18:35 bd EC:53 Rate is 60 beats/min. Rhythm is regular. QRS [place] is Normal. NH interval is prolonged allyn at 248 msec. QRS interval is normal. QT interval is normal. No Q waves. T waves are Normal. No ST changes noted. Clinical impression: 1st degree heart block and No evidence of ischemia. Interpreted by me. Reviewed by me. Administered Medications: 18:38 Drug: NS 0.9% IV 1000 ml IV at 1 bolus Per protocol; 1000 mL bolus Route: IV; Rate: 1 me1 bolus; Site: right wrist; 19:50 Follow up: IV Status: Completed infusion; IV Intake: 1000ml me1 18:38 Drug: Rocephin IV 1 grams IV at per protocol once; Given slow IV push per pharmacy me1 instructions Route: IV; Rate: per protocol; Site: right wrist; 19:50 Follow up: Response: No adverse reaction; IV Status: Completed infusion me1 18:39 Drug: Famotidine IVP 20 mg IVP once; dilute with 10 mL 0.9% NaCl; give over 2 minutes kc6 Route: IVP; Site: right forearm; 19:08 Follow up: Response: No adverse reaction [facility] 18:58 Drug: levofloxacin IVPB 500 mg 100 ml IVPB once over 60 mins Volume: 100 ml; Route: me1 IVPB; Infused Over: 60 mins; Site: right wrist; 19:58 Follow up: Response: No adverse reaction; IV Status: Completed infusion ca1 19:58 Drug: Piperacillin-Tazobactam IVPB 3.375 grams IVPB once over 60 mins; (mix in NS 100 me1 mL) Route: IVPB; Infused Over: 60 mins; Site: right wrist; Disposition Summary: 09/03/23 18:01 Hospitalization Ordered Notes: Hospitalization Status: Inpatient Admission allyn Provider: Stiven Mccollum cha [facility] allyn Condition: Fair allyn Problem: new allyn Symptoms: have improved allyn Bed/Room Type: Standard [facility] Room Assignment: 201(09/03/23 18:18) bd Diagnosis - Weakness allyn - Anorexia allyn - Cough allyn - Multiple sclerosis allyn - Pneumonia due to other specified bacteria - bilateral, patchy allyn - Constipation allyn - Elevated white blood cell count allyn - Do not resuscitate allyn Forms: - Medication Reconciliation Form allyn - SBAR form allyn - Leadership Thank You Letter allyn Signatures: Dispatcher [employer] Melissa Allred Corey, MD MD cha Campbell, Kaitlyn RN RN kc6 Salima Reyes RN RN me1 Corrections: (The following items were deleted from the chart) 18:18 18:01 allyn bd
[2023-09-03] MEDS ORDERED: FAMOTIDINE 20 MG/2 ML VIAL IV ONE (18:06)
[2023-09-03] MEDS ORDERED: CEFTRIAXONE 1000 MG/VIAL ONE (18:06)
[2023-09-03] MEDS ORDERED: NA CHLORIDE 0.9% 1,000 ML ONE (18:06)
[2023-09-03] MEDS ORDERED: ONDANSETRON 4 MG/2 ML VIAL IV PRN (18:07)
[2023-09-03] MEDS: FAMOTIDINE 20 MG/2 ML VIAL IV SCH (18:31)
[2023-09-03 18:40] LABS: Absolute Lymphocytes (CBC) 1.1 K/uL (0.7-4.9); Lymphocytes % 8.2 % (15.3-44.8); MCV 101.9 fL (80-100); MPV 7.6 fL (7.6-11.3); Platelets 273 thou/uL (152-406); RBC Red Blood Cell Count 4.61 M/uL (4.33-5.43)
--- NOTE | 2023-09-03 18:43 | RAD REPORT ---
EXAM DESCRIPTION: RADChest Single View09/03/2023 6:12 pm CLINICAL HISTORY: COUGH COMPARISON: Chest Single View dated 08/18/2023; Chest Single View dated 08/10/2021; Chest Pa And Lat ( 2 Views) dated 08/24/2019; Chest Pa And Lat (2 Views) dated 07/09/2018 TECHNIQUE: Portable AP view of the chest. FINDINGS: New patchy bilateral airspace opacities on a background of interstitial coarsening and hyp erlucency. No pneumothorax or effusion. The cardiomediastinal contours are unchanged with tortuosity of the thoracic aorta. IMPRESSION: New patchy bilateral airspace opacities, suggestive of pneumonitis.
[2023-09-03 18:51] LABS: SARS-CoV-2 Antigen Rapid Res Negative (Negative)
[2023-09-03] MEDS ORDERED: NA CHLORIDE 0.9% 100 ML ONE (18:53)
[2023-09-03] MEDS ORDERED: PIPERACIL/TAZO 3.375 GM VIAL IV ONE (18:54)
[2023-09-03] MEDS: Levofloxacin500mg IV 500 MG/100 ML BAG IV ONE (18:55)
[2023-09-03] MEDS: LEVALBUTEROL 1.25 MG/3 ML NEB NEB SCH (19:00)
[2023-09-03] MEDS: IPRATROPIUM BROM 0.5MG/2.5ML NEB SCH (19:00)
[2023-09-03] MEDS: NA CHLORIDE 0.9% 1,000 ML IV SCH (19:00)
--- NOTE | 2023-09-03 19:27 | RAD REPORT ---
EXAM DESCRIPTION: CT - Stone Protocol - 09/03/2023 6:46 pm CLINICAL HISTORY: FLANK PAIN COMPARISON: Chest Single View dated 09/03/2023 TECHNIQUE: Thin cut axial CT imaging of the abdomen and pelvis was performed without IV contrast. Mu ltiplanar reformats were generated and reviewed. All CT scans are performed using dose optimization technique as appropriate and may include automated exposure control or mA/KV adjustment according to patient size. FINDINGS: Patchy ground-glass and interstitial opacities, more pronounced on the left. Cardiomegaly. Mild pericardial effusion. . The liver, spleen, adrenal glands, and pancreas show no suspicious findings. Gallbladder and biliary tree are also without suspicious finding. Symmetric renal contour, without suspicious parenchymal findings within limits of noncontrast techniq ue. No evidence of hydroureteronephrosis. Nonobstructing right interpolar 3 mm calculus. No dilated bowel loops or bowel wall thickening. No free air, free fluid or inflammatory stranding. L arge burden of stool along the distal colon, in particular within the rectal bulb. No hernia, mass or bulky lymphadenopathy. The urinary bladder is without significant finding. Mild prostatomegaly. No suspicious bony findings. IMPRESSION: No acute intra-abdominal process. Patchy ground-glass and interstitial bibasilar lung opacities, suggesting pneumonitis or COPD exacerb ation. Cardiomegaly and mild pericardial effusion. Nonobstructing 3 mm interpolar calculus. Large burden of stool in the colon.
[2023-09-03] MEDS: PIPER TAZO 3.375 GM in NA CHLORIDE 0.9% 100 ML IV SCH (20:00)
[2023-09-03] MEDS: Levofloxacin 750mg IV 750 MG/150 ML BAG IV SCH (21:00)
[2023-09-03 21:11] LABS: ALT/SGPT 98 U/L (16-61); AST/SGOT 121 U/L (15-37); Albumin 1.9 g/dL (3.4-5.0); Alkaline Phosphatase 94 U/L (45-117); Bilirubin Total 0.9 mg/dL (0.2-1.0); Protein, Total 5.8 g/dL (6.4-8.2)
[2023-09-03 21:13] LABS: Bilirubin Direct < 0.1 mg/dL (0-0.2); Bilirubin Indirect, Calculated ND mg/dL (0.2-0.8)
--- NOTE | 2023-09-03 22:00 | HP ---
Date of Admission: 09/03/2023 Chief Complaint: Weakness and cough. History Of Present Illness: This is a 77-year-old male patient with multiple comorbidities, including multiple sclerosis, whose health has deteriorated over a period of last couple of years or so. He has been seeing his neurologist regularly. Lately, he has not felt well and today he was brought into emergency room via ambulance because of generalized weakness and cough. The patient's reported that the patient has not gotten out of bed in almost last 1 week and he has very poor appetite. Denies any choking spells, but has some cough. No fever. Denies any shortness of breath. is concerned about decubitus area on his buttocks and sacrococcygeal region. Upon further questioning, I was not able to get definite history of difficulty swallowing, but she tells me that certain food he is able to tolerate better than other food, but I did not get clear-cut history of any dysphagia or odynophagia. After he was evaluated in the emergency room, decision was made to admit him to the hospital with bilateral pneumonia, and I saw him in emergency room for this admission. Allergies: NO KNOWN ALLERGIES. Code Status: As per my discussion with the patient today in emergency room in presence of his , he has decided not to undergo any heroic measures like CPR, defibrillation, or ventilator support in the event of cardiopulmonary arrest and he told me, "Dr. Mccollum, I would like to only once in my lifetime." Medications: List reviewed. Review of Systems: Constitutional: As mentioned above. Respiratory: As mentioned above. All other systems reviewed and negative. Past Medical History: Significant for multiple sclerosis, trigeminal neuralgia, allergic rhinitis, hypothyroidism, impaired fasting glucose, orthostatic hypotension, chronic atrial fibrillation, hyperlipidemia, coronary artery disease, hypertension, gastroesophageal reflux disease, diverticulosis, ulcerative colitis, benign prostatic hypertrophy, and chronic kidney disease. Past Surgical History: Ablation for trigeminal neuralgia, tonsillectomy, coronary artery angioplasty with stent placement in August 2019, ablation for atrial fibrillation multiple times, and back surgery. Family History: Father had LA. Mother had heart disease and diabetes. Sister with arthritis. Social History: Prior history of smoking not at present time. Use of alcohol occasional. Physical Examination: VITAL SIGNS: Height 6 feet 4 inches, weight 134 pounds. General: The patient appears very cachectic, not in any distress. Awake, alert, answering questions appropriately, but extremely weak and has trouble sitting upright in the bed. HEENT: Head atraumatic, normocephalic. Conjunctivae nonerythematous. Sclerae white. Mouth, no thrush or edema noted. Ears/Nose, no mass, lesion, discharge noted. Neck: Supple. No JVD, lymph nodes, bruit, thyromegaly noted. Lungs: Presence of rales noted in the right mid and lower lung woods, and diminished air entry in the left mid and lower lung woods. Not using accessory muscles of respiration. Heart: Normal heart sounds, no murmur or gallop. Abdomen: Soft, bowel sounds normal. No guarding, rigidity, tenderness, mass, hepatosplenomegaly, distention, or bruit noted. Extremities: No leg edema. No calf tenderness. Skin: Cyanosis of skin involving bilateral anterior knees and bilateral heels, and plantar aspect of bilateral feet. There is also evidence of stage II decubitus with evidence of loss of epidermal skin involving bilateral buttocks and sacrococcygeal region. Lymphatics: No lymph node enlargement in neck, supraclavicular, infraclavicular region. Neuro: Significant generalized weakness to the extent that he has hard time sitting upright in the bed. Musculoskeletal: Significant loss of muscle mass. Chest: Unremarkable. External Genitalia: Deferred. Rectal: Deferred. Laboratory Data: Chest x-ray shows bilateral infiltrates. COVID-19 test negative. WBC 13.4, hemoglobin 16, platelets 273. Sodium 138, potassium 3.4, chloride 103, bicarb 30, BUN 18, creatinine 0.82, glucose 110, troponin 16.2, albumin 1.9. Impression: 1. Pneumonia. 2. Acute respiratory failure with hypoxia. 3. Multiple sclerosis. 4. Hypokalemia. 5. Malnutrition, severe. 6. Hypothyroidism. 7. Orthostatic hypotension. 8. Atrial fibrillation, chronic. 9. Chronic anticoagulation therapy. 10. Ulcerative colitis. 11. Benign prostatic hypertrophy. 12. Hyperlipidemia. 13. Coronary artery disease. 14. Diverticulosis. 15. Gastroesophageal reflux disease. 16. Decubitus ulcer, stage 2, buttocks and SC region. Plan: We will go ahead and admit the patient to hospital for further evaluation and management of this problem. The patient is appropriate for inpatient and is expected to spend 2 midnights in hospital. As per my discussion with the patient, in presence of his , the patient does not want any heroic measures and DNR order will be written in the chart. We will continue oxygen replacement therapy. Consult Dr. Noel from Pulmonary Service, and we will go ahead and start him on empiric antibiotics, which are Zosyn and Levaquin. We will also consult Dr. Low for decubitus care management. Consult Physical Therapy. Nutritional support will be provided with help of Ensure type of nutritional supplement. His home medications will be continued per order. We will monitor blood pressure. Give antihypertensive medication as per order. The patient has significant orthostatic hypotension problem, and we will address that with help of midodrine as per order. While he is lying down in the bed, he may not need midodrine, so we will have to consider that as he starts to ambulate. Overall, prognosis is guarded, and I will see him tomorrow for followup. We will also go ahead and get Speech Therapy evaluation for swallowing evaluation. RADHA/MODL Voice ID: [id number] MTDD
[2023-09-03 22:23] LABS: Potassium 3.4 mEq/L (3.5-5.1); Troponin High Sensitivity 16.9 pg/mL (<58.9)
[2023-09-04] MEDS: ACETAMINOPHEN 325 MG TABLET PO PRN (01:15)
[2023-09-04 01:26] LABS: Specific Gravity 1.026 (1.005-1.030); Urine Bacteria None Seen /HPF (<20); Urine Bilirubin NEGATIVE (Negative); Urine Blood 2+ (Negative); Urine Clarity Turbid (Clear); Urine Color Yellow (Yellow); Urine Glucose NEGATIVE (Negative); Urine Mucus Slight /HPF (None Seen); Urine Protein TRACE (Negative); Urine RBC >50 /HPF (None Seen); Urine Urobilinogen Normal (Normal); Urine pH 5.5 (5.0-7.0)
[2023-09-04] MEDS: LEVOTHYROXINE SOD 0.075 MG TAB PO SCH (06:17)
[2023-09-04] MEDS: PANTOPRAZOLE 40MG TABLET PO SCH (06:17)
[2023-09-04] MEDS: LEVOTHYROXINE SOD 0.1 MG TAB PO SCH (06:17)
[2023-09-04 07:22] LABS: Absolute Lymphocytes (CBC) 0.5 K/uL (0.7-4.9); Lymphocytes % 6.6 % (15.3-44.8); MCV 102.3 fL (80-100); MPV 7.3 fL (7.6-11.3); Platelets 332 thou/uL (152-406); RBC Red Blood Cell Count 4.01 M/uL (4.33-5.43)
[2023-09-04 07:28] LABS: Potassium 3.4 mEq/L (3.5-5.1)
[2023-09-04] MEDS ORDERED: INFLUENZA VACCINE (for 6+ mo) 0.5 ML DOSE IMVAC ONE (08:00)
[2023-09-04] MEDS ORDERED: PNEUMOCOCCAL VACCINE 0.5 ML IMVAC ONE (08:00)
[2023-09-04 08:16] LABS: Blood Morphology Comment NOT SEEN (NOT SEEN); Platelet Estimate ADEQ; White Blood Cell Scan OK (OK)
[2023-09-04] MEDS: HOME MED 1 EA UNK (Alfuzosin Hcl [Alfuzosin Hcl] 10 MG Tab.Er.24h) PO SCH (09:00)
[2023-09-04] MEDS: AMIODARONE PO SCH (09:00)
[2023-09-04] MEDS: DABIGATRAN ETEXILATE MESYLATE 150 MG PO SCH (09:00)
[2023-09-04] MEDS: ARFORMOTEROL TARTRATE 15 MCG/2 ML VIAL.NEB NEB SCH (09:00)
[2023-09-04] MEDS: DEXTROAMP AMPHET PO SCH (09:00)
[2023-09-04] MEDS ORDERED: CEFTRIAXONE 1,000 MG in NA CHLORIDE 0.9% 50 ML IVPB SCH (09:00)
[2023-09-04] MEDS ORDERED: LEVOTHYROXINE SOD 0.1 MG TAB PO SCH (09:00)
[2023-09-04 09:29] LABS: Blood O2 Saturation 91.9 % (92-98.5)
[2023-09-04 09:32] LABS: Arterial Blood Carboxyhemoglob 0.9 % (0-1.5); Blood Gas Oxyhemoglobin 90.2 % (94-97)
[2023-09-04] MEDS: FLUDROCORTISONE 0.1 MG TAB PO SCH (10:14)
[2023-09-04] MEDS: AMANTADINE 100 MG CAP PO SCH (10:14)
[2023-09-04] MEDS: ASPIRIN EC 81 MG TAB PO SCH (10:15)
[2023-09-04] MEDS: DULOXETINE 20 MG CAP PO SCH (10:15)
[2023-09-04] MEDS: VITAMIN D 5,000 UNIT CAP PO SCH (10:15)
[2023-09-04] MEDS: OXcarbazepine 150 MG TAB PO SCH (10:15)
[2023-09-04] MEDS: modafiniL 100 MG TAB PO SCH (10:15)
[2023-09-04] MEDS: GABAPENTIN 300 MG CAP PO SCH (10:15)
[2023-09-04 10:16] LABS: Thyroid Stimulating Hormone 22.2 uIU/mL (0.358-3.740)
[2023-09-04] MEDS: ENSURE HIGH PROTEIN 237 ML CAN PO SCH (10:16)
--- NOTE | 2023-09-04 12:35 | P.CNS ---
Date of Consult: 09/04/23 Reason for Consult: Pneumonia progressive weakness Chief Complaint: Pneumonia History of Present Illness: Patient is 77 years of age with a history of multiple sclerosis nephric and deterioration since this year become more weak to ambulate he used to use a wa lker fever or chills he was diagnosed with multiple sclerosis in 2014 was very active before his with his has a poor appetite and been lying in his bed for the past week states that the food tastes very bad shows diffuse bilateral changes Also lost significant amount of weight no coughing Allergies No Known Allergies Allergy (Verified 09/03/23 21:44) Home Medications: Alfuzosin HCl 10 mg PO BID 08/19/23 Amantadine [Symmetrel] 100 mg PO BID 08/19/23 Amiodarone HCl [Cordarone Tab] 150 mg PO DAILY 08/19/23 Baclofen [Lioresal] 10 mg PO DAILYPRN PRN 08/19/23 Cholecalciferol (Vitamin D3) [Vitamin D3] 5,000 unit PO DAILY 08/19/23 Dabigatran Etexilate Mesylate [Dabigatran Etexilate] 150 mg PO BID 08/19/23 Dextroamphetamine/Amphetamine [Dextroamp-Amphet ER 10 mg Cap] 10 mg PO DAILY 08/19/23 Duloxetine HCl [Cymbalta] 20 mg PO DAILY 08/19/23 Esomeprazole Mag Trihydrate [Nexium] 40 mg PO DAILY 08/19/23 Fludrocortisone [Florinef] 0.1 mg PO DAILY 08/19/23 Gabapentin 300 mg PO BID 08/19/23 Levothyroxine Sodium 175 mcg PO DAILY 08/19/23 OXcarbazepine [Trileptal] 150 mg PO TID 08/19/23 Rosuvastatin [Crestor] 10 mg PO BEDTIME 08/19/23 modafiniL [Provigil] 400 mg PO DAILY 08/19/23 - Past Medical/Surgical History Diabetic: No -: ulcerative colitis -: MS -: Afib; ablation 2008&2010 -: HTN -: R trigeminal neuralgia -: dyslipidemia -: CAD; stent jun 2020 -: diverticulosis -: BPH -: CKD -: allertic rhinitis -: hypothyroidism -: cataract surgery. -: back surgery -: tonsillectomy - Family History Mother Medical History: Heart disease, Diabetes Father Medical History: Other (see notes) Notes: myocardial infarct Sister Medical History: Other (see notes) Notes: arthritis - Social History Smoking Status: Unknown if ever smoked Alcohol use: No CD- Drugs: No Caffeine use: No Place of Residence: Home Review of Systems 10-point ROS is otherwise unremarkable General: Weakness, Malaise Respiratory: Shortness of Breath Physical Examination Temp Pulse Resp BP Pulse Ox 97.3 F 56 18 161/92 H 98 09/04/23 08:00 09/04/23 08:00 09/04/23 08:00 09/04/23 08:00 09/04/23 08:00 General: Alert, Oriented x3 HEENT: Atraumatic Neck: Supple Respiratory: Clear to auscultation bilaterally, Diminished Cardiovascular: No edema, Regular rate/rhythm, Normal S1 S2 Gastrointestinal: Normal bowel sounds, Soft and benign Musculoskeletal: No clubbing, No swelling Integumentary: Other (Has decubitus ulcers) - Problems (1) Pneumonia Current Visit: Yes Status: Acute Plan: Patient is 77 years of age or with a history of multiple sclerosis has experienced significant deterioration since July progressively more weak has also lost weight during out of his bed much chest x-ray shows diffuse bilateral changes arterial blood gases shows mild hypoxemia and has had hypokalemia elevated TSH level abnormal LFTs count is now normal was elevated patient is COVID-negative does not appear to be aspiration pneumonia will continue with Zosyn may supervisor records change to levofloxacin will also give 1 dose of Lasix ordered BNP cardiogram with Doppler patient is high risk for thromboembolism CT pulmonary angiogram Qualifiers: Pneumonia type: due to unspecified organism Laterality: bilateral
[2023-09-04] MEDS: FUROSEMIDE 20 MG/ 2ML VIAL IV ONE ×2 (12:41→14:54)
--- NOTE | 2023-09-04 13:23 | EKG ---
Test Date: 2023-09-03 Test Time: 18:32:10 Loan Officer: MICHAEL MEASUREMENT RESULTS: Intervals: Rate: 60 MA: 248 QRSD: 88 QT: 434 QTc: 434 [place]: P: 45 MA: 248 QRS: -22 T: -48 INTERPRETIVE STATEMENTS: Sinus rhythm with 1st degree AV block Septal infarct, age undetermined Abnormal ECG Compared to ECG 08/18/2023 15:40:13 First degree AV block now present Myocardial infarct finding now present Left anterior fascicular block no longer present T-wave abnormality no longer present Electronically Signed On 09-04-23 13:21:53 CASE MANAGEMENT MANAGER by Jorge Alberto Navarro
--- NOTE | 2023-09-04 13:24 | CON ---
Date of Consultation: 09/04/2023 Reason For Consultation: Sacrococcygeal and buttock wound. History Of Present Illness: The patient is a 77-year-old gentleman with a history of multiple sclero sis, who was admitted with weakness and cough, found to have pneumonitis, and on evaluation by Dr. Margareth peace, the patient was found to have a stage II decubitus on his sacrococcygeal region as well as the bu ttocks. There is no fever or chills. There is no purulent discharge. The patient lays in bed most of the time. The patient has progressively gotten weaker. He was admitted with pneumonitis, possibl e pneumonia, and I was asked to evaluate the patient for the wound. He is awake and alert. He is re alistic about his prognosis, and he is very pragmatic in his discussion about his medical conditions. He denies any other symptoms related to his wound. Past Medical History: Significant for multiple sclerosis, trigeminal neuralgia, hypothyroidism, orth ostatic hypotension, chronic atrial fibrillation, coronary artery disease, hypertension, BPH, chronic kidney disease. Past Surgical History: Ablation for the trigeminal neuralgia, tonsillectomy, coronary artery angiopl asty with stent placement, ablation for atrial fibrillation, and back surgery. Allergies: NONE. Social History: The patient does not smoke at the present time. Drinks alcohol occasionally. Family History: Significant for [place] in the father and heart disease in the mother. Physical Examination: Vital Signs: Stable. He is afebrile. General: He is awake, alert, oriented x3. Head and Neck: No masses. Chest: Clear. Heart: S1, S2. Abdomen: Soft. Extremities: Neurovascularly intact. Neuro: Nonfocal. Skin: On the sacrococcygeal and buttock region, there is a large area of stage II wound with some ep idermis sloughing. There is no erythema. There is no warmth. There is no open wound. There is a f oam in place, which is adequately covering the area of concern. The patient overall does appear emac iated and has multiple bony prominences, at high risk for development of pressure ulcers. Laboratory Data: Reviewed. White count on admission was 13.4, today is 8.1. His albumin is 1.9. Assessment: A 77-year-old gentleman with multiple medical problems including multiple sclerosis with weakness, debility, and stage II decubitus on his sacrococcygeal and buttock region. Recommendations: Nutritional optimization and vitamins as ordered, offloading. We will go ahead and try to see if he would qualify for air mattress, and the patient will get a foam placed on the area of concern, and the [facility]. MILAGROS/FABIOLA Voice ID: [id number] Report ID: [id number]
--- NOTE | 2023-09-04 16:51 | RAD REPORT ---
EXAM DESCRIPTION: CT - Chest Angio - 09/04/2023 1:44 pm CLINICAL HISTORY: Chest pain COMPARISON: September 03, 2023 chest x-ray TECHNIQUE: Dynamically enhanced axial 3 mm thick images of the chest were obtained during administra tion of 100 mL Isovue 370 IV contrast. Coronal and oblique reconstruction images were generated and r eviewed. Exam utilizes a protocol for optimal evaluation of pulmonary arterial tree. Maximum intensity projections 3D imaging was utilized All CT scans are performed using dose optimization technique as appropriate and may include automated exposure control or mA/KV adjustment according to patient size. FINDINGS: A pulmonary embolus is not seen. Aortic root 4.5 centimeters Small bilateral pleural effusions. A pericardial effusion is not seen. Cardiomegaly [id number] bilateral patchy alveolar opacities within the lungs IMPRESSION: Negative for a pulmonary embolism. 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
[2023-09-04] MEDS: MAGIC MOUTHWASH 180 ML BTL PO PRN (18:24)
--- NOTE | 2023-09-04 19:41 | PN ---
Date of Progress Note: 09/04/2023 Subjective: The patient was seen this morning for followup. No new complaints or problems reported by patient. Overall, he feels better compared to last night and looks better than last night. Objective: Vital Signs: Reviewed. HEENT: Unremarkable. Lungs: Bilateral rales noted in lower lung woods. Not using accessory muscles of respiration. Heart: Sounds normal. Abdomen: Soft, bowel sounds normal. No guarding, rigidity, tenderness, distention. Extremities: No leg edema. Laboratory Data: Labs were pending this morning. Impression: 1.Pneumonia. 2.Hypertension. 3.Coronary artery disease. 4.Chronic atrial fibrillation. 5.Chronic anticoagulation therapy. 6.Generalized weakness. 7.Debility. 8.Orthostatic hypotension. 9.Multiple sclerosis. Plan: We will go ahead and continue home medications per order. Continue antibiotics per order. Th e patient is on Pradaxa, which is his home medication and we will continue that as his anticoagulatio n therapy. Physical Therapy was consulted. We will consult Dr. Low for wound care management and details were discussed with him as well this morning. We will continue to follow with Dr. Bert rangel [facility]. Fall precaution was ordered. I will be out of town and as of tomorrow, Hospitalist Team will take over this patient's management. RADHA/MODL Voice ID: [id number] Report ID: [id number]
[2023-09-04] MEDS: ROSUVASTATIN 10 MG TAB PO SCH (20:00)
[2023-09-04] MEDS: JUVEN PACKET PO SCH (20:00)
--- NOTE | 2023-09-05 07:44 | P.PN ---
Subjective Date of Service: 09/05/23 Chief Complaint: Pneumonia Physical Examination - Vital Signs Temperature: 97.1 F Blood Pressure: 124/72 Pulse: 81 Respirations: 18 Pulse Ox (%): 94
--- NOTE | 2023-09-05 07:45 | P.HP ---
Patient History Date of Service: 09/05/23 Reason for admission: Pneumonia Allergies No Known Allergies Allergy (Verified 09/03/23 21:44) Home Medications: Alfuzosin HCl 10 mg PO BID 08/19/23 Amantadine [Symmetrel] 100 mg PO BID 08/19/23 Amiodarone HCl [Cordarone Tab] 150 mg PO DAILY 08/19/23 Baclofen [Lioresal] 10 mg PO DAILYPRN PRN 08/19/23 Cholecalciferol (Vitamin D3) [Vitamin D3] 5,000 unit PO DAILY 08/19/23 Dabigatran Etexilate Mesylate [Dabigatran Etexilate] 150 mg PO BID 08/19/23 Dextroamphetamine/Amphetamine [Dextroamp-Amphet ER 10 mg Cap] 10 mg PO DAILY 08/19/23 Duloxetine HCl [Cymbalta] 20 mg PO DAILY 08/19/23 Esomeprazole Mag Trihydrate [Nexium] 40 mg PO DAILY 08/19/23 Fludrocortisone [Florinef] 0.1 mg PO DAILY 08/19/23 Gabapentin 300 mg PO BID 08/19/23 Levothyroxine Sodium 175 mcg PO DAILY 08/19/23 OXcarbazepine [Trileptal] 150 mg PO TID 08/19/23 Rosuvastatin [Crestor] 10 mg PO BEDTIME 08/19/23 modafiniL [Provigil] 400 mg PO DAILY 08/19/23 - Past Medical/Surgical History Has patient received pneumonia vaccine in the past: No Diabetic: No -: ulcerative colitis -: MS -: Afib; ablation 2008&2010 -: HTN -: R trigeminal neuralgia -: dyslipidemia -: CAD; stent jun 2020 -: diverticulosis -: BPH -: CKD -: allertic rhinitis -: hypothyroidism -: cataract surgery. -: back surgery -: tonsillectomy - Family History Mother -: Heart disease, Diabetes Father -: Other (see notes) Notes: myocardial infarct Sister -: Other (see notes) Notes: arthritis - Social History Smoking Status: Unknown if ever smoked Alcohol use: No CD- Drugs: No Caffeine use: No Place of Residence: Home Physical Examination - Vital Signs Temperature: 97.1 F Blood Pressure: 124/72 Pulse: 81 Respirations: 18 Pulse Ox (%): 94 Assessment and Plan - Advance Directives Does patient have a Living Will: Yes Does patient have a Durable POA for Healthcare: Yes
[2023-09-05] MEDS: levoFLOXacin 250 MG TAB PO SCH (09:00)
--- NOTE | 2023-09-05 09:03 | P.PN ---
Subjective Date of Service: 09/05/23 Chief Complaint: Pneumonia No change in patient's condition he still continues to feel weak Review of Systems General: Weakness Respiratory: Shortness of Breath Physical Examination - Vital Signs Temperature: 97.1 F Blood Pressure: 124/72 Pulse: 81 Respirations: 18 Pulse Ox (%): 94 - Physical Exam General: Alert, Oriented x3 Neck: Supple Respiratory: Crackles/rales Cardiovascular: Normal S1 S2 Gastrointestinal: Normal bowel sounds, Soft and benign Assessment And Plan - Current Problems (Diagnosis) (1) Pneumonia Current Visit: Yes Status: Acute Plan: Patient has bilateral interstitial changes form of ARDS suspect is from aspiration dietitian consult 48 trial of steroids changed to IV levofloxacin physical therapy white count is normal chemistry is unremarkable Xopenex now as needed CRP procalcitonin level Qualifiers: Pneumonia type: due to unspecified organism Laterality: bilateral
[2023-09-05] MEDS: ZINC SULFATE 220 MG CAP PO SCH (09:23)
[2023-09-05] MEDS: POTASSIUM 25 MEQ EFFERV TAB PO ONE (09:23)
[2023-09-05] MEDS: ASCORBIC ACID 500 MG TABLET PO SCH (09:23)
[2023-09-05] MEDS: METHYLPREDNISOLONE 40 MG INJ IV SCH (09:31)
[2023-09-05] MEDS: Levofloxacin 750mg IV 750 MG/150 ML BAG IV SCH (09:31)
--- NOTE | 2023-09-05 14:45 | ECHO ---
HEIGHT: 6 ft 4 in WEIGHT: 135 lb 0 oz DATE OF STUDY: 09/05/[address]: Austin Noel MD 2-DIMENSIONAL: YES M.MODE: YES DOPPLER: YES COLOR FLOW: YES TDS: PORTABLE: YES DEFINITY: BUBBLE STUDY: DIAGNOSIS: RULE OUT CONGESTIVE HEART FAILURE CARDIAC HISTORY: CATHERIZATION: YES SURGERY: NO PROSTHETIC VALVE: NO PACEMAKER: NO MEASUREMENTS (cm) DIASTOLIC (NORMALS) SYSTOLIC (NORMALS) IVSd 1.0 (0.6-1.2) LA Diam 3.1 (1.9-4.0) LVEF 77% LVIDd 4.4 (3.5-5.7) LVIDs 2.4 (2.0-3.5) %FS 46% LVPWd 1.0 (0.6-1.2) Ao Diam 2.8 (2.0-3.7) 2 DIMENSIONAL ASSESSMENT: RIGHT ATRIUM: NORMAL LEFT ATRIUM: NORMAL RIGHT VENTRICLE: NORMAL LEFT VENTRICLE: NORMAL TRICUSPID VALVE: NORMAL MITRAL VALVE: NORMAL PULMONIC VALVE: NORMAL AORTIC VALVE: NORMAL PERICARDIAL EFFUSION: NONE AORTIC ROOT: NORMAL LEFT VENTRICULAR WALL MOTION: NORMAL DOPPLER/COLOR FLOW: NORAML COMMENTS: 1. NORMAL LEFT VENTRICULAR SYSTOLIC FUNCTION, NORMAL EJECTION FRACTION 60-65%, NORMAL WALL MOTION 2. NORMAL DIASTOLIC FUNCTION 3. INSUFFICIENT TRICUSPID REGURGITATION TO EVALUATE RIGHT VENTRICULAR SYSTOLIC PRESSURE TECHNOLOGIST: ROBERT MAX
[2023-09-06] MEDS: PNEUMOCOCCAL VACCINE 0.5 ML IMVAC ONE (10:00)
[2023-09-06] MEDS: INFLUENZA VACCINE (for 6+ mo) 0.5 ML DOSE IMVAC ONE (10:00)
--- NOTE | 2023-09-06 10:59 | P.PN ---
Subjective Date of Service: 09/06/23 Chief Complaint: Pneumonia Patient is feeling better may be the effect of steroid wean problem seems to be a dry mouth Review of Systems General: Weakness Respiratory: Shortness of Breath Physical Examination - Vital Signs Temperature: 97.5 F Blood Pressure: 121/77 Pulse: 62 Respirations: 16 Pulse Ox (%): 92 - Physical Exam General: Alert, In no apparent distress, Oriented x3 Neck: Supple Respiratory: Clear to auscultation bilaterally, Diminished Cardiovascular: No edema, Regular rate/rhythm, Normal S1 S2 Assessment And Plan - Current Problems (Diagnosis) (1) Pneumonia Current Visit: Yes Status: Acute Plan: Patient has bilateral interstitial changes no recent history of any viral infection may be aspiration causing ARDS although his oxygenation is satisfactory is a 94% on 1 L continue with low-dose prednisone exchange architect to p.o. levofloxacin patient's procalcitonin level is negative CRP is elevated Qualifiers: Pneumonia type: due to unspecified organism Laterality: bilateral (2) Xerostomia Current Visit: Yes Status: Acute Plan: Patient's problem is dry mouth to food tastes bad is losing weight not eating and drinking much DC nebulized ipratropium DC Magic mouthwash may benefit from cholinergic agonists as an outpatient could be side effect of some of the medications that is on
[2023-09-06 11:13] LABS: Absolute Lymphocytes (CBC) 0.5 K/uL (0.7-4.9); Hematocrit 35.3 % (39.6-49.0); Lymphocytes % 5.4 % (15.3-44.8); MCV 102.1 fL (80-100); MPV 7.3 fL (7.6-11.3); Platelets 332 thou/uL (152-406); RBC Red Blood Cell Count 3.45 M/uL (4.33-5.43)
[2023-09-06 11:28] LABS: C-Reactive Protein 82.9 mg/L (<3.00); Potassium 3.6 mEq/L (3.5-5.1)
[2023-09-06] MEDS: predniSONE 20 MG TAB PO SCH (21:08)
[2023-09-06 22:42] VITALS: BMI 16.4
[2023-09-07 06:42] LABS: Absolute Lymphocytes (CBC) 0.5 K/uL (0.7-4.9); Hematocrit 35.7 % (39.6-49.0); Lymphocytes % 3.1 % (15.3-44.8); MCV 100.9 fL (80-100); MPV 7.5 fL (7.6-11.3); Platelets 408 thou/uL (152-406); RBC Red Blood Cell Count 3.54 M/uL (4.33-5.43)
[2023-09-07 07:02] LABS: Albumin 2.1 g/dL (3.4-5.0); Bilirubin Total 0.5 mg/dL (0.2-1.0); C-Reactive Protein 56.2 mg/L (<3.00); Magnesium 2.2 mg/dL (1.6-2.4); Potassium 4.2 mEq/L (3.5-5.1); Protein, Total 5.6 g/dL (6.4-8.2)
[2023-09-07] MEDS: DULOXETINE 20 MG CAP PO SCH (08:27)
[2023-09-07] MEDS: levoFLOXacin 500 MG TAB PO SCH (08:28)
--- NOTE | 2023-09-07 09:15 | RAD REPORT ---
EXAM DESCRIPTION: RAD - Chest Single View - 09/07/2023 6:45 am CLINICAL HISTORY: pneumonia Chest pain. COMPARISON: Chest Single View dated 09/03/2023; Chest Single View dated 08/18/2023; Chest Single View d ated 08/10/2021; Chest Pa And Lat (2 Views) dated 08/24/2019 FINDINGS: Portable technique limits examination quality. Extensive bilateral pulmonary opacities are again seen, mildly to moderately progressive since 2023. The heart is upper limit normal in size. No displaced fractures. IMPRESSION: Mild to moderate worsening in lung aeration since comparative study.
--- NOTE | 2023-09-07 09:54 | P.PN ---
Subjective Date of Service: 09/07/23 Chief Complaint: Pneumonia Doing better weak/ Dry mouth is better Review of Systems General: Weakness Respiratory: Shortness of Breath Physical Examination - Vital Signs Temperature: 98.6 F Blood Pressure: 144/93 Pulse: 67 Respirations: 16 Pulse Ox (%): 90 - Physical Exam General: Alert, In no apparent distress, Oriented x3 Respiratory: Clear to auscultation bilaterally, Diminished, Crackles/rales (Left side) Cardiovascular: No edema, Regular rate/rhythm Assessment And Plan - Current Problems (Diagnosis) (1) Pneumonia Current Visit: Yes Status: Acute Plan: Doign better .Dry mouth has improved. PT . Rehab,CXRY worse on the left side. Bronch with BAL/ Add Zosyn, vanc. CRP declining Qualifiers: Pneumonia type: due to unspecified organism Laterality: bilateral (2) Xerostomia Current Visit: Yes Status: Acute Plan: Doing better. Eating today /Dc Brovana
[2023-09-07] MEDS: FUROSEMIDE 20 MG/ 2ML VIAL IV SCH (12:07)
[2023-09-07] MEDS: PIPER TAZO 4.5 GM in NA CHLORIDE 0.9% 100 ML IV SCH (12:07)
[2023-09-07] MEDS: VANCOMYCIN 1.25 GM in NA CHLORIDE 0.9% 250 ML IVPB ONE (16:31)
[2023-09-07] MEDS: predniSONE 10 MG TAB PO SCH (20:12)
[2023-09-08] MEDS: VANCOMYCIN 1 GM in NA CHLORIDE 0.9% 250 ML IVPB SCH (05:31)
[2023-09-08 07:08] LABS: Absolute Lymphocytes (CBC) 0.3 K/uL (0.7-4.9); Hematocrit 35.4 % (39.6-49.0); Lymphocytes % 2.9 % (15.3-44.8); MCV 101.5 fL (80-100); MPV 7.3 fL (7.6-11.3); Platelets 332 thou/uL (152-406); RBC Red Blood Cell Count 3.49 M/uL (4.33-5.43)
[2023-09-08 07:50] LABS: Bilirubin Total 0.6 mg/dL (0.2-1.0); Magnesium 2.1 mg/dL (1.6-2.4); Potassium 3.7 mEq/L (3.5-5.1); Protein, Total 5.4 g/dL (6.4-8.2)
[2023-09-08 08:22] LABS: White Blood Cell Scan OK (OK)
[2023-09-08 08:23] LABS: Blood Morphology Comment NOT SEEN (NOT SEEN); Platelet Estimate ADEQ; Toxic Granulation 1+
--- NOTE | 2023-09-08 08:29 | RAD REPORT ---
EXAM DESCRIPTION: RADChest Single View09/08/2023 6:32 am CLINICAL HISTORY: pneumonia COMPARISON: Chest Single View dated 09/07/2023; Chest Single View dated 09/03/2023; Chest Single View d ated 08/18/2023; Chest Single View dated 08/10/2021 TECHNIQUE: Portable AP view of the chest. FINDINGS: Stable patchy bilateral pulmonary opacities with background interstitial thickening. No p neumothorax or effusion. The cardiomediastinal contours are unremarkable. IMPRESSION: Stable extensive bilateral lung opacities, concerning for pneumonia.
--- NOTE | 2023-09-08 12:38 | P.PN ---
Subjective Date of Service: 09/05/23 Events of the last 24 hours have been noted. Patient appears to be cachectic and emaciated. He has gotten really weak since he developed his multiple sclerosis. Patient has significant weakness and since he got pneumonia he is getting worse. Continue work with physical therapy. Encourage patient to get out of bed and ambulate. Review of Systems 10-point ROS is otherwise unremarkable Physical Examination - Vital Signs Temperature: 97.9 F Blood Pressure: 154/93 Pulse: 64 Respirations: 18 Pulse Ox (%): 90 - Physical Exam General: Alert, In no apparent distress, Oriented x3 Respiratory: Diminished, Crackles/rales Cardiovascular: Regular rate/rhythm, Normal S1 S2, Systolic murmur Gastrointestinal: Normal bowel sounds, Soft and benign, Non-distended, No tenderness Musculoskeletal: No clubbing, No swelling, Other (muscular atrophy) Neurological: Sensation intact, Cranial nerves 3-12 intact, Other (generalized weakness) - Studies Medications List Reviewed: Yes Assessment & Plan - Problems (Diagnosis) (1) Pneumonia Current Visit: Yes Status: Acute Qualifiers: Pneumonia type: due to unspecified organism Laterality: bilateral (2) Pneumonitis Current Visit: Yes Status: Acute (3) Atrial fibrillation Current Visit: No Status: Chronic (4) CAD (coronary artery disease) Current Visit: No Status: Chronic (5) HTN (hypertension) Current Visit: No Status: Chronic (6) Multiple sclerosis Current Visit: No Status: Chronic - Plan 1. Continue with IV antibiotics 2. Awaiting culture; procalcitonin is negative 3. Repeat chest x-ray pending 4. Continue with nebs as needed 5. O2 per protocol 6. Repeat labs monitoring inflammatory markers 7. IV steroids 8. O2 per protocol. 9. pulmonary consultation appreciated Discharge Plan: Home Plan to discharge in: Greater than 2 days - Advance Directives Does patient have a Living Will: Yes Does patient have a Durable POA for Healthcare: Yes - Code Status/Comfort Care Code Status Assessed: Yes Code Status: Full Code Critical Care: No Time Spent Managing PTS Care (In Minutes): 35
--- NOTE | 2023-09-08 12:52 | P.PN ---
Date of Service: 09/06/23 Subjective Patient has significant inflammatory marker elevation as well as normal procalcitonin level. Patient bears have interstitial lung disease. IV steroids have been started and he is feeling better and his appetite is improved. Continue with IV steroids and monitor inflammatory markers. Patient is very emaciated and cachectic, and he needs to continue with therapy. Review of Systems 10-point ROS is otherwise unremarkable Physical Examination - Vital Signs reviewed - Physical Exam General: Alert, In no apparent distress, Oriented x3 Respiratory: Diminished, Crackles/rales Cardiovascular: Regular rate/rhythm, Normal S1 S2, Systolic murmur Gastrointestinal: Normal bowel sounds, Soft and benign, Non-distended, No tenderness Musculoskeletal: No clubbing, No swelling, Other (muscular atrophy) Neurological: Sensation intact, Cranial nerves 3-12 intact, Other (generalized weakness) Assessment & Plan - Problems (Diagnosis) (1) Pneumonia Current Visit: Yes Status: Acute Qualifiers: Pneumonia type: due to unspecified organism Laterality: bilateral (2) Pneumonitis Current Visit: Yes Status: Acute (3) Atrial fibrillation Current Visit: No Status: Chronic (4) CAD (coronary artery disease) Current Visit: No Status: Chronic (5) HTN (hypertension) Current Visit: No Status: Chronic (6) Multiple sclerosis Current Visit: No Status: Chronic - Plan Continue with plan of care as mentioned below: 1. Continue with IV antibiotics 2. Awaiting culture; procalcitonin is negative 3. Repeat chest x-ray in AM 4. Continue with nebs as needed 5. O2 per protocol 6. Repeat labs monitoring inflammatory markers; improved 7. IV steroids 8. O2 per protocol. 9. pulmonary consultation appreciated Discharge Plan: Home Plan to discharge in: Greater than 2 days - Advance Directives Does patient have a Living Will: Yes Does patient have a Durable POA for Healthcare: Yes - Code Status/Comfort Care Code Status Assessed: Yes Code Status: Full Code Critical Care: No Time Spent Managing PTS Care (In Minutes): 35
--- NOTE | 2023-09-08 12:54 | P.PN ---
Subjective Date of Service: 09/08/23 Chief Complaint: Pneumonia No change in patient's condition still feeling weak no fever or chills Review of Systems General: Weakness Respiratory: Shortness of Breath Physical Examination - Vital Signs Temperature: 97.9 F Blood Pressure: 154/93 Pulse: 64 Respirations: 18 Pulse Ox (%): 90 - Physical Exam General: Alert, In no apparent distress, Cachectic Neck: Supple Respiratory: Crackles/rales (Crackles on the both sides left greater than the right) Cardiovascular: No edema, Regular rate/rhythm - Studies Medications List Reviewed: Yes Assessment And Plan - Current Problems (Diagnosis) (1) Pneumonia Current Visit: Yes Status: Acute Plan: Patient's condition is stable he still has bilateral infiltrate left greater than the right we will plan to do a diagnostic bronchoscopy with BAL tomorrow patient patient is satisfactory white count is back down to normal continue with Zosyn and vancomycin patient's blood pressure is little elevated we will also add a low-dose spironolactone discussed with patient is agreeable to her diagnostic bronchoscopy we will not plan to do any biopsies informed him about the risk include bleeding and infection and he agrees. After midnight patient's blood pressure is elevated oxygenation stable on 3 L Qualifiers: Pneumonia type: due to unspecified organism Laterality: bilateral (2) Xerostomia Current Visit: Yes Status: Acute Plan: Doing better. Eating today /Dc Francesco
--- NOTE | 2023-09-08 12:57 | P.PN ---
Date of Service: 09/07/23 Subjective Patient has significant weakness. Patient not really participating well with physical therapy. He has not really been able to get out of bed and I do not think he could participate with physical therapy for 3 hours. He is not a good inpatient rehab candidate but will probably be better served going to a senior living facility. will have patient see CT see the patient in the morning and make a decision regarding placement. Review of Systems 10-point ROS is otherwise unremarkable Physical Examination - Vital Signs reviewed - Physical Exam General: Alert, In no apparent distress, Oriented x3 Respiratory: Diminished, Crackles/rales Cardiovascular: Regular rate/rhythm, Normal S1 S2, Systolic murmur Gastrointestinal: Normal bowel sounds, Soft and benign, Non-distended, No tenderness Musculoskeletal: No clubbing, No swelling, Other (muscular atrophy) Neurological: isCranial nerves 3-12 intact, Other (generalized weakness) Assessment & Plan - Problems (Diagnosis) (1) Pneumonia Current Visit: Yes Status: Acute Qualifiers: Pneumonia type: due to unspecified organism Laterality: bilateral (2) Pneumonitis Current Visit: Yes Status: Acute (3) Atrial fibrillation/CAD Current Visit: No Status: Chronic (4) CAD (coronary artery disease) Current Visit: No Status: Chronic (5) HTN (hypertension) Current Visit: No Status: Chronic (6) Multiple sclerosis Current Visit: No Status: Chronic (7) Ulcerative colitis Current Visit: No Status: Chronic - Plan Continue with plan of care as mentioned below: 1. Continue with IV antibiotics 2. Awaiting culture; procalcitonin is negative 3. Repeat chest x-ray in AM 4. Continue with nebs as needed 5. O2 per protocol 6. Repeat labs monitoring inflammatory markers; improved 7. IV steroids 8. O2 per protocol. 9. pulmonary consultation appreciated 10. Continue with cardiac meds 11. GI/DVT prophylaxis Discharge Plan: Home Plan to discharge in: Greater than 2 days - Advance Directives Does patient have a Living Will: Yes Does patient have a Durable POA for Healthcare: Yes - Code Status/Comfort Care Code Status Assessed: Yes Code Status: Full Code Critical Care: No Time Spent Managing PTS Care (In Minutes): 35
--- NOTE | 2023-09-08 13:52 | EKG ---
Test Date: 2023-09-04 Test Time: 08:55:26 Picking Machine Operator: CHALINO MEASUREMENT RESULTS: Intervals: Rate: 61 IN: 220 QRSD: 108 QT: 404 QTc: 406 [place]: P: 73 IN: 220 QRS: -41 T: 62 INTERPRETIVE STATEMENTS: Sinus tachycardia with 2nd degree AV block with 3:1 AV conduction with occasional premature ventricular complexes Left axis deviation Incomplete right bundle branch block Septal infarct, age undetermined Abnormal ECG Compared to ECG 09/03/2023 18:32:10 Ventricular premature complex(es) now present Left-axis deviation now present Incomplete right bundle-branch block now present Sinus rhythm no longer present First degree AV block no longer present Myocardial infarct finding still present Electronically Signed On 09-08-23 13:38:18 [employer] by Jorge Alberto Navarro
[2023-09-08] MEDS: SPIRONOLACTONE 25 MG TABLET PO SCH (14:03)
[2023-09-08] MEDS: LEVALBUTEROL 1.25 MG/3 ML NEB NEB PRN (19:57)
--- NOTE | 2023-09-08 21:18 | PN ---
Date of Progress Note: 09/08/2023 Subjective: The patient was seen this morning for followup. He was lying in bed, not in any distres s. Denies any new complaints and the patient reports that he has not gotten out of bed over the week end. All hours gone because of his significant generalized weakness and was asking me if he can go t o inpatient rehab for physical therapy and I told him that he will not qualify for that because in or supriya for him to go to inpatient rehab, he should be able to participate with 3 hours a day of therapy, which obviously he is not able to do that. So he will need [facility] for [facility]. He was encouraged to continue to work with Physical Therapy. Objective: Vital Signs: Reviewed. HEENT: Unremarkable. Lungs: Bilateral good equal air entry with presence of some rales noted in lower lung woods. Not u sing accessory muscles of respiration. Heart: Sounds normal. Abdomen: Soft. Bowel sounds normal. No guarding, rigidity, tenderness, distention. Extremities: No leg edema. Laboratory Data: Today, white count 9.7, hemoglobin 12.2, platelets 332. Sodium 138, potassium 3.7, chloride 104, bicarb 30, BUN 25, creatinine 0.76, glucose 115, AST 60, ALT 68. Chest x-ray shows ex tensive bilateral infiltrate, unchanged from yesterday. Impression: 1.Pneumonia. 2.Acute respiratory failure with hypoxia. 3.Generalized weakness. 4.Debility. 5.Abnormal liver function test. 6.Chronic anticoagulation therapy. Plan: We will go ahead and continue current medication. Continue current antibiotics, which is Leva ashley, Zosyn, and vancomycin. We will continue to follow with Dr. Noel from Pulmonary Service and the patient to participate with Physical Therapy and Social Service to assist with discharge planning . RADHA/MODL Voice ID: [id number] Report ID: [id number]
[2023-09-08] MEDS: ARFORMOTEROL TARTRATE 15 MCG/2 ML VIAL.NEB NEB SCH (22:40)
--- NOTE | 2023-09-08 23:57 | CON ---
Reason For Consultation: Consultation called because of multiple sclerosis. History Of Present Illness: Mr. Valencia is a 77-year-old patient with multiple medical problems, admitted with weakness, cough, and pneumonia, who has been diagnosed with multiple sclerosis in [address] Noe Bain at [facility]. Said symptoms involved diffuse weakness, both ri ght and left lower extremities in addition to upper extremities. Head incoordination and balance pro blems. He was treated with multiple medications, but most recently Ocrevus by Dr. Noe Bain. Tw o years ago, he developed right trigeminal neuralgia, which has been managed by Trileptal 450 mg mallory y. He has noted progressive loss of weight, diffuse weakness, and has been mostly transferring and w alking very short distances with a walker and has had significant weight loss. At 1 point, he was ov er 200 pounds about 2 years ago and now weighs 135 pounds. He does appear significantly emaciated wi th very thin arms, legs, and gaunt face with scaphoid abdomen and scalloping in the temporal regions. He is following up with Dr. Noe Bain. Past Medical History: Trigeminal neuralgia on the right, relapsing remitting multiple sclerosis, hyp othyroidism, orthostatic hypotension, atrial fibrillation, dyslipidemia, coronary artery disease, hyp ertension, GE reflux, diverticulosis, benign prostatic hypertrophy, chronic kidney disease. Allergies: NO KNOWN DRUG ALLERGIES. 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 GLEZ AND IS ACTUALLY A DO NOT RESUSCITATE STATUS. Medications: Tylenol 650 mg every 4 hours as needed, amantadine 100 mg twice daily, vitamin C 500 mg daily, aspirin 81 mg daily, baclofen 10 mg daily as needed, duloxetine 20 mg daily, Florinef 0.1 mg daily, Lasix 20 mg daily, gabapentin 300 mg twice daily, levofloxacin 500 mg daily, Xopenex 1.25 mg n ebulizer every 6 hours as needed, Vimal 1 packet twice daily, levothyroxine 0.075 mg daily, modafinil 400 mg daily, Ensure Enlive 237 mL daily, Zofran 4 mg every 6 hours as needed. Family History: Noncontributory. Past Surgical History: As stated. Review of Systems: Mr. Valencia said he has been diffusely weak, very hard just to mobilize, has difficulty going from sitting to standing and ambulating with a rolling walker, very unsteady gait, has poor appetite, poo r oral intake, and significant weight loss as noted. Physical Examination: Vital Signs: Blood pressure 159/79, pulse 70, respiratory rate 15, temperature 97.4, oxygen saturati on 94% on room air, weight 135 pounds, height 54, BMI is very low at 16.4. General: Mr. Valencia appears very emaciated as noted with gaunt face, scaphoid abdomen, scallopin g in the temporal regions, and very thin arms and legs. HEENT: He is otherwise normocephalic, atraumatic. Sclerae anicteric. Oropharynx moist. Neck: Supple. Chest: Clear. Heart: Regular. Extremities: No edema or cyanosis. Significantly thin-appearing body. Neurological: There is no focal cranial nerve deficits, although there is a slight decrease of the r ight nasolabial fold compared to the left side. He has stocking-glove loss to light touch temperatur e, diffuse weakness around 4/5 proximally and 3/5 distally. Increased reflexes in upper and lower ex tremities. He is unable to go from a lying to sitting position without maximum assistance, but sat b riefly at the edge of bed for about 15 seconds and felt dizzy, had to lie back down. Laboratory Studies: White blood cell count 7.9, down from 14.9 on the , today is 12, hemoglobin 12.2, platelets 332. Sodium 138, potassium 3.7, chloride 104, carbon dioxide 30, BUN 25, creatinine 0.76, glucose range up to 126, calcium 8.2, magnesium 2.1, AST elevated to 60, ALT 68, alkaline phosp hatase 80. His procalcitonin on the 9 was 0.08. Vancomycin trough is pending. COVID-19 test was negative on the . Chest x-ray done today showed stable extensive bilateral lung opacities concern ing for pneumonia. Assessment: Mr. Valencia is a 77-year-old patient with relapsing remitting multiple sclerosis, rig ht trigeminal neuralgia, bilateral pneumonia, and multiple medical problems as noted above. Plan: He is on Ocrevus by Dr. Noe Bain for his multiple sclerosis, that we will continue when ravi woods follows up with Dr. Bain. He is on Trileptal 450 mg twice daily for trigeminal neuralgia, that s rd resume. At this point, he is significantly debilitated, very emaciated, and cachectic. He baltazar uld be on high-protein supplementation. High-dose vitamin D 5000 international units daily recommend ed. At this point, the patient is a do not resuscitate status and given this pneumonia and very weak state, he is at significant risk of a very poor outcome. This may be discussed with the family and hospice may be considered. MARCO/MODL Voice ID: [id number] Report ID: [id number]
[2023-09-09] MEDS: LIDOCAINE 4% TOP SOLUTION ONE (06:53)
[2023-09-09] MEDS: Phenylephrine HCl 10 MG/ML 1 ML VIAL ONE (06:53)
[2023-09-09] MEDS ORDERED: LIDOCAINE 1% MPF 30 ML VIAL ONE (07:10)
--- NOTE | 2023-09-09 07:31 | RAD REPORT ---
EXAM DESCRIPTION: RAD - Chest Single View - 09/09/2023 5:01 am CLINICAL HISTORY: pneumonia Chest pain. COMPARISON: Chest Single View dated 09/08/2023; Chest Single View dated 09/07/2023; Chest Single View dated 09/03/2023; Chest Single View dated 08/18/2023 FINDINGS: Portable technique limits examination quality. Extensive bilateral pulmonary opacities are noted, unchanged since 09/08/2023 prior study. The heart is upper limit normal in size. No displaced fractures. IMPRESSION: Stable extensive bilateral pulmonary opacities since yesterday's study.
[2023-09-09] MEDS: AMLODIPINE 5 MG TAB PO SCH (08:29)
[2023-09-09] MEDS: CLOTRIMAZOLE 10 MG TROCHE PO SCH (17:45)
[2023-09-09] MEDS: VANCOMYCIN 1.25 GM in NA CHLORIDE 0.9% 250 ML IVPB SCH (17:45)
--- NOTE | 2023-09-10 07:19 | PN ---
Date of Progress Note: 09/09/2023 History: The patient was seen this morning for followup. He was lying in bed, sleeping, easily arou sable, not in distress, appears weak. Has very poor appetite and significant weakness. He is not ab le to get out of bed and has stayed in bed even with the physical therapy. He is not able to get out of bed. Physical Examination: Vital Signs: Reviewed. Temperature 97, pulse 71, respiratory rate 18, blood pressure 183/108, oxyge n saturation 94%. HEENT: Unremarkable. Lungs: Bilateral equal entry with presence of rales noted in lower lung field. Not using accessory muscles of respiration at rest. Heart: Sounds normal. Abdomen: Soft, bowel sounds normal. No guarding, rigidity, tenderness, or distention. Extremities: No leg edema. Laboratory Data: Chest x-ray shows bilateral pneumonia. Impression: 1.Pneumonia. 2.Acute respiratory failure with hypoxia. 3.Multiple sclerosis. 4.Coronary artery disease. 5.Chronic atrial fibrillation. 6.Chronic anticoagulation therapy. 7.Generalized weakness. 8.Debility. Plan: The patient remains on IV antibiotic and oxygen replacement therapy, which we will continue th at. The patient's condition has declined over a period of last few months and lot more lately than gerald lawrence. 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 With that, we did talk about hospice care and he agrees with the hospice care and wants to go home wi hospice care, so he can be with his family. I did communicate all those details regarding hospice care with him and requested social work associate to assist him with hospice care arrangements and once all this thing gets arranged, we will be able to send him home with hospice care in next 1 or 2 days. Rebeca delaney this evening, I did call the patient's and communicated with her all the details and she und erstands as well and she agrees with the patient's decision. We also talked about discontinuing all unnecessary medications and unnecessary medications at this point we will be anything that is not nec essary for his comfort. We will consider to discontinue it and the patient's totally agrees wit h that. The patient is having such trouble swallowing, so that will create a challenge with his oral medications. Overall prognosis is poor and it is expected for him to have a rapid downhill course. We have do not resuscitate order in the hospital, but I did communicate with him regarding getting o [facility] DNR paperwork ready for him. RADHA/MODL Voice ID: [id number] Report ID: [id number]
--- NOTE | 2023-09-10 08:33 | RAD REPORT ---
EXAM DESCRIPTION: RADChest Single View09/10/2023 4:50 am CLINICAL HISTORY: pneumonia COMPARISON: Chest Single View dated 09/09/2023; Chest Single View dated 09/08/2023; Chest Single View dated 09/07/2023; Chest Single View dated 09/03/2023 TECHNIQUE: Portable AP view of the chest. FINDINGS: Stable patchy bilateral airspace opacities with background interstitial thickening. No pn eumothorax or effusion. The cardiomediastinal contours are unremarkable. IMPRESSION: Stable patchy bilateral airspace opacities.
[2023-09-10 21:00] VITALS: O2SAT 94
--- NOTE | 2023-09-11 06:25 | PN ---
Date of Progress Note: 09/10/2023 Subjective: The patient was seen this morning for followup, he was lying in bed, not in any respirat ory distress extremely weak, has not been able to do any therapy at all with physical therapy. Has e meliza trouble moving his legs on his own. Has even difficulty with speech and his speech is a little d ifficult to understand because of his profound weakness. Objective: Vital Signs: Reviewed. HEENT: Unremarkable. Lungs: Bilateral equal air entry with some presence of rales noted in lower lung woods. Heart: Sounds normal. Abdomen: Soft. Bowel sounds normal. No guarding, rigidity, tenderness, or distention. Extremities: No leg edema. Neuro: Significant generalized weakness and debility. Impression: 1.Pneumonia. 2.Multiple sclerosis. 3.Chronic atrial fibrillation. 4.Chronic anticoagulation therapy. 5.Failure to thrive. 6.Severe malnutrition. Plan: The patient did not have any more questions today. He has communicated with his yesterabdullahi y as he tells me and has been working with Social Service to make arrangements for hospice care at [facility], as soon as this is arranged, plan is to discharge him to go home with hospice care. His prognosi s is very poor and we did talk about medications to be continued upon discharge and he does not walk to take any medication that is not necessary for comfort care. Otherwise, all his other medications that he has been on, he would like to discontinue it. We also talked about antibiotics and he does n ot want to take any more antibiotics either. Our plan will be to discharge him to go home with [facility] care with comfort care medications and orders as per hospice and we will discontinue all of his prior home medications. RADHA/MODL Voice ID: [id number] Report ID: [id number]
[2023-09-11 11:35] VITALS: TEMP 97.7
[2023-09-11] MEDS: BACLOFEN 10 MG TAB PO PRN (12:05)
[2023-09-11 12:56] VITALS: BP 170/96
== END 2023-09-11 16:19 | disposition hospice, home (50) | DRG 193 ==
LOC: ER 17:20 → ERHOLD 18:04 → 2ND 19:51
PROVIDERS: ADMIT Internal Medicine; ATTEND Internal Medicine
DX: J18.9 Pneumonia, unspecified organism (principal); E43 Unspecified severe protein-calorie malnutrition; J96.01 Acute respiratory failure with hypoxia; I48.92 Unspecified atrial flutter; Z68.1 Body mass index [BMI] 19.9 or less, adult; I48.20 Chronic atrial fibrillation, unspecified; K51.90 Ulcerative colitis, unspecified, without complications; R64 Cachexia; E87.6 Hypokalemia; E03.9 Hypothyroidism, unspecified; I95.1 Orthostatic hypotension; G35 Multiple sclerosis; J30.9 Allergic rhinitis, unspecified; K21.9 Gastro-esophageal reflux disease without esophagitis; I12.9 Hypertensive chronic kidney disease with stage 1 through stage 4 chronic kidney disease, or unspecified chronic kidney disease; N18.9 Chronic kidney disease, unspecified; K59.00 Constipation, unspecified; E78.00 Pure hypercholesterolemia, unspecified; K11.7 Disturbances of salivary secretion; N40.0 Benign prostatic hyperplasia without lower urinary tract symptoms; K57.90 Diverticulosis of intestine, part unspecified, without perforation or abscess without bleeding; G50.0 Trigeminal neuralgia; L89.152 Pressure ulcer of sacral region, stage 2; L89.302 Pressure ulcer of unspecified buttock, stage 2; I25.10 Atherosclerotic heart disease of native coronary artery without angina pectoris; R63.0 Anorexia; R62.7 Adult failure to thrive; R94.5 Abnormal results of liver function studies; R73.01 Impaired fasting glucose; Z66 Do not resuscitate; Z95.5 Presence of coronary angioplasty implant and graft; Z51.5 Encounter for palliative care; Z79.02 Long term (current) use of antithrombotics/antiplatelets; Z11.52 Encounter for screening for COVID-19; Z86.73 Personal history of transient ischemic attack (TIA), and cerebral infarction without residual deficits; Z79.890 Hormone replacement therapy; Z79.899 Other long term (current) drug therapy
CPT/HCPCS: 36415; 36600; 71045; 71275; 74176; 76377; 80048; 80053; 80076; 80202; 81001; 82805; 83605; 83690; 83735; 83880; 84145; 84439; 84443; 84484; 85025; 86140; 87040; 87804; 87811; 92526; 92610; 93005; 93306; 94640; 97110; 97161; 97530; 99285; J0696; J1940; J2001; J2371; J2543; J2920; J7030; J7050; J7512; J7605; J7614; J7644; Q9967